=== PATIENT | female | born 1940 | race Caucasian/White ===

== ENCOUNTER 2020-01-11 09:47 | Outpatient (CLI) | payer MEDICARE, OTHER, SELFPAY ==
--- NOTE | ~2020-01-11 | XR_ITS ---
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 The procedure including the risks, benefits, and alternatives was discussed with the pat ient. Risks discussed included bleeding and infection. The patient understood the risks and agreed to proceed. The skin overlying the left hip joint was prepped and draped in usual sterile fashion. An esthetic was administered with 1% lidocaine subcutaneously. A 22 G needle was advanced under fluoros copic guidance into the joint. Injection of a small amount of gas confirmed intra-articular position of the needle. Subsequently, injectate consisting of 7 mL of a 5:2 mixture of 1% lidocaine:10 mg/mL Kenalog for a total dose of 20 mg Kenalog was instilled. The needle was removed and the entry site w as cleaned and dressed. There were no immediate complications. Fluoroscopy exposure time was 0.1 min utes. The total number of images was 2. FINDINGS: Real-time fluoroscopy demonstrates the needle in the left hip joint. Patient's pain prior t o procedure:05/01. Patient's pain following the procedure: 12/30. IMPRESSION: 1. Left hip injection of local anesthetic and steroid with decrease in the patient's presenting pain. Reviewed, dictated and finalized at location A. IMPRESSION: 1. Left hip injection of local anesthetic and steroid with decrease in the silvio ent's presenting pain.
== END 2020-01-11 09:48 | disposition home or self-care (01) ==
PROVIDERS: PCP Physician Assistant; Visit Provider Orthopaedic Surgery
DX: M16.12 Unilateral primary osteoarthritis, left hip (principal); M25.552 Pain in left hip
CPT/HCPCS: 20610; 77002; J3301

== ENCOUNTER 2020-02-04 11:14 | Emergency (ER) | payer MEDICARE, OTHER, SELFPAY ==
--- NOTE | ~2020-02-04 | XR_ITS ---
XR wrist RT min 3V DATE: 02/04/2020 11:48 INDICATION: Fall 2 weeks ago. Lateral wrist pain. TECHNIQUE: 4 views COMPARISON: None FINDINGS: Diffuse osteopenia. There is prominent narrowing at the radioscaphoid joint, as well as triscaphe joint. There is promine nt narrowing at the articulation of the lunate bone with the capitate and hamate bones. There is mild osteoarthritis at the first carpometacarpal joint. There is osteoarthritic change at the first metac arpophalangeal joint. No fracture or dislocation is evident. No periosteal reaction or bone destruction. IMPRESSION: Osteopenia Polyarticular osteoarthritis Reviewed, dictated and finalized at location A.
[2020-02-04 11:32] VITALS: BP 140/65; PULSE 81; RESP 16; TEMP 36.6; O2SAT 98
--- NOTE | 2020-02-04 11:48 | ED.UPPEXIN ---
HPI - Extremity Injury (Upper) General Chief Complaint: Extremity Injury, Upper Stated Complaint: Fall rt wrist pain Time Seen by Provider: 02/04/20 11:50 Source: patient Limitations: no limitations History of Present Illness HPI narrative: Maame Frias is a 79 yo female with a prior history of cerebral palsy and osteopenia, who comes to express care because of fall that happened 2 weeks ago and her right hand continues to be somewhat weak and painful with exertion. She has good range of motion of the hand but when she tries to put pressure on the wrist she has pain. Still drives her car is unable to start the car for instance. Related Data Home Medications Medication Instructions Recorded Confirmed acetaminophen [Tylenol] 325 mg PO ONCE PRN 10/20/19 02/04/20 cyanocobalamin (vitamin B-12) 1,000 mcg PO DAILY 10/20/19 02/04/20 [Vitamin B-12] hydrochlorothiazide 12.5 mg PO DAILY 10/20/19 02/04/20 naproxen sodium 220 mg tablet 220 mg PO BID PRN 11/30/19 02/04/20 phenytoin sodium extended 100 mg 100 mg PO TID 01/06/20 02/04/20 capsule Allergies Allergy/AdvReac Type Severity Reaction Status Date / Time No Known Allergies Allergy Verified 02/04/20 11:19 Review of Systems Review of Systems: Narrative: CONSTITUTIONAL: Denies fever, chills, sweats. EYES: Denies visual changes, redness, discharge. ENT: Denies rhinorrhea, congestion, sore throat, otalgia. CARDIOVASCULAR: Denies chest pain, palpitations, edema. RESPIRATORY: Denies dyspnea, wheezing, cough GASTROINTESTINAL: Denies abdominal pain, nausea, vomiting, diarrhea. GENITOURINARY: Denies dysuria, hematuria, abnormal discharge SKIN: Denies rash or itching. NEUROLOGIC: Denies numbness, or focal weakness. PSYCHIATRIC: Denies anxiety or depression. Extremities: Right wrist pain with exertion PMFSH Past Medical History Medical History Arthritis of both knees Osteoarthritis of left hip Seizure disorder Spasticity reports a injury but not sure exactly what it is Surgical History Surgical History History of appendectomy History of breast biopsy History of hysterectomy History of shoulder replacement History of tonsillectomy Family History Family History Father Malignant neoplasm of prostate Family history of cardiovascular disease Patient's father is , Onset Age: 80 Mother Heart disease Cancer Other Family history of genitourinary disease Social History Social History Smoking status: Never smoker Second hand tobacco smoke exposure: No Alcohol intake: never Substance use: never Gender identity (if verbalized by the patient): Female Spiritual care concerns: No Comments At time of signature, I agree with nursing past medical, surgical, social and family history. There is no relevant family history pertinent to the presenting complaint. Exam Narrative: Exam Narrative: GENERAL: This is a well-nourished, well-developed patient, in mild distress. HEAD: normocephalic, atraumatic. EYES: Sclera clear/white. Vision is grossly intact. EARS: External ears normal, Hearing grossly intact. NOSE: External nose normal without nasal discharge, nares without redness, no rhinorrhea. THROAT: Mucous membranes moist, NECK: Neck supple, CARDIOVASCULAR: Regular rate and rhythm without murmurs, gallops, or rubs. RESPIRATORY: Clear to auscultation. Breath sounds equal bilaterally. No wheezes, rales, or rhonchi. GASTROINTESTINAL: Abdomen soft, SKIN: warm, intact with no suspicious lesions or rash, good texture and turgor. NEURO: awake, alert, and oriented to person, place and time. There were no obvious focal neurologic abnormalities. Steady gait with use of walker EXTREMITIES: Normal range of motion. Right
== END 2020-02-04 12:20 | disposition home or self-care (01) ==
PROVIDERS: Emergency Provider Nurse Practitioner; PCP Physician Assistant
DX: S63.501A Unspecified sprain of right wrist, initial encounter (principal); W19.XXXA Unspecified fall, initial encounter; I10 Essential (primary) hypertension
CPT/HCPCS: 73110; 99213; G0463

== ENCOUNTER 2020-03-08 15:44 | Outpatient (CLI) | payer MEDICARE, OTHER, SELFPAY ==
--- NOTE | 2020-03-08 15:58 | ECG_ITS ---
Measurements Intervals [place] Rate: 67 P: 64 MA: 171 QRS: -5 QRSD: 80 T: 44 QT: 429 QTc: 453 Interpretive Statements SINUS RHYTHM SUPRAVENTRICULAR TRIGEMINY RSR' IN V1 OR V2, CONSIDER RIGHT VENTRICULAR HYPERTROPHY OR RIGHT VCD BORDERLINE ST ABNORMALITY- ANTEROLATERAL LEADS ABNORMAL ECG Electronically Signed On 03-08-2020 17:58:30 CDT by Levar Reece D.O.
== END 2020-03-08 15:45 | disposition home or self-care (01) ==
PROVIDERS: PCP Physician Assistant; Visit Provider Physician Assistant
DX: I49.9 Cardiac arrhythmia, unspecified (principal); R94.31 Abnormal electrocardiogram [ECG] [EKG]
CPT/HCPCS: 93005

== ENCOUNTER 2020-03-20 09:25 | Observation (INO) | payer MEDICARE, OTHER, SELFPAY ==
--- NOTE | ~2020-03-20 | XR_ITS ---
EXAMINATION: XR tibia fibula RT 2V EXAM DATE: 03/20/2020 10:33 INDICATION: No known recent injury provided at this time. Pain of the right tibia/fibula. TECHNIQUE: Right tibia/fibula frontal and lateral projections obtained and reviewed. There is no sari or study for comparison. FINDINGS: There is acute nondisplaced closed posttraumatic right fibular shaft fracture at its proxi mal aspect, identified only on the lateral projection. This finding has been indicated, marked on the examination for review, clinical correlation. There are no acute tibial fractures or dislocations identified. There is no subcutaneous gas. The soft tissue is unremarkable. There are no radiopaqu e foreign bodies. No knee joint effusion. IMPRESSION: Acute nondisplaced right fibular shaft fracture. Reviewed, dictated and finalized at location B.
--- NOTE | ~2020-03-20 | XR_ITS ---
EXAMINATION: XR hip RT 2V w AP pelvis EXAM DATE: 03/20/2020 10:33 INDICATION: Initial encounter following injury, with pain of the pelvis, right hip. TECHNIQUE: Right hip frontal, 'frog leg' projections for interpretation. Frontal projection pelvis. There is no prior study for comparison. FINDINGS: Smooth right hip femoral head contour, no radiographic evidence of avascular necrosis. Ther e is moderate left hip arthritis. Mild to moderate right hip arthritis. There are no acute fractures or dislocations identified. There is no subcutaneous gas. The soft tissue is unremarkable. There are no radiopaque foreign bodies. IMPRESSION: 1. Pelvis, right hip exam without acute osseous findings. 2. Arthritis. Reviewed, dictated and finalized at location B.
[2020-03-20 09:27] VITALS: BP 143/66; PULSE 80; RESP 18; TEMP 36.3; O2SAT 100
--- NOTE | 2020-03-20 10:03 | ED.FALL ---
HPI - Fall General Chief Complaint: Fall Stated Complaint: FALL Time Seen by Provider: 03/20/20 09:52 Source: patient Mode of arrival: ambulatory Limitations: no limitations History of Present Illness HPI Narrative: This patient is a 79 year old female with history of HTN, hypothyroid, cerebral palsy who presents for evaluatio of right lower leg pain s/p fall. She states this morning she slide off bed onto her right leg. She states she has been unable bear weight to right leg. She denies hitting her head and she denies neck pain or back pain. She denies taking anticoagulation as well. Patient lives in senior apartment by her self and she has history of falling. MD complaint: fall Related Data Home Medications Medication Instructions Recorded Confirmed cyanocobalamin (vitamin B-12) 1,000 mcg PO DAILY 10/20/19 03/20/20 [Vitamin B-12] aspirin [Adult Low Dose Aspirin] 81 mg PO DAILY 03/20/20 03/20/20 cholecalciferol (vitamin D3) 2,000 units PO DAILY 03/20/20 03/20/20 mcxylvts-gun-atoj-FA-lutein 1 tablet PO DAILY 03/20/20 03/20/20 [Centrum Silver Women] primidone 50 mg PO .QHS 03/20/20 03/20/20 Allergies Allergy/AdvReac Type Severity Reaction Status Date / Time No Known Allergies Allergy Verified 03/20/20 09:32 Review of Systems Review of Systems: All systems reviewed & are unremarkable except as noted in HPI and below PMFSH Past Medical History Medical History Arthritis of both knees Osteoarthritis of left hip Seizure disorder Spasticity reports a injury but not sure exactly what it is Family History Family History (Updated 03/20/20 @ 18:52 by Brunilda Mojica RN) Father Family history of cardiovascular disease Malignant neoplasm of prostate Patient's father is , Onset Age: 80 Mother Heart disease Cancer Patient's mother is Other Family history of genitourinary disease Social History Social History Smoking status: Never smoker Second hand tobacco smoke exposure: No Alcohol intake: never Substance use: never Gender identity (if verbalized by the patient): Female Spiritual care concerns: No Exam Const: General: no acute distress and alert Orientation/consciousness: patient oriented x3 HENMT: Head: normocephalic and atraumatic Ears: external ears normal Face and sinus: face symmetric Mouth: Yes Normal oral and palatal mucosa present and Yes oropharynx normal Throat: posterior oropharynx normal and uvula midline Eyes: Pupils: Equal, round and reactive pupils present EOM: EOMs intact bilaterally Neck: Neck: normal visual inspection Resp: Effort & Inspection: normal respiratory effort and no retractions Auscultation: clear to auscultation bilaterally Cardio: Rate: regular rate Rhythm: regular rhythm Skin: General skin exam: normal color Rashes: no rashes Neuro: General: patient oriented x3 Extrem: Other: TTP right lateral leg at side of indent in muscle, no swelling, Psych: Mental Status: mental status grossly normal Affect: normal affect Course Reevaluation(s) Reevaluation #1: PAtient states she is unable to ambulate with her walker so she is agreeable for observation for placement in rehab Date: 03/20/20 Time: 16:37 Consultations Consultation #1: Dr Huddleston agrees to consult and patient sees him as outpatient. Date: 03/20/20 Time: 16:37 Consultation #2: Pearl Bergman with hospitalist accepts patien to service Date: 03/20/20 Time: 16:37 Vital Signs Vital signs: Vital Signs Temperature 97.3 F L 03/20/20 09:27 Pulse Rate 80 03/20/20 09:27 Respiratory Rate 18 03/20/20 09:27 Blood Pressure 143/66 H 03/20/20 09:27 Pulse Oximetry 100 03/20/20 09:27 Temperature 97.9 F 03/20/20 19:02 Pulse Rate 85 03/20/20 19:02 Respiratory Rate 18 03/20/20 19:02 Blood Pres
[2020-03-20] MEDS: ACETAMINOPHEN 500 MG TABLET 1000 MG PO (10:33)
[2020-03-20 11:07] VITALS: BP 123/65; PULSE 69; RESP 18; O2SAT 99
[2020-03-20 16:27] VITALS: BP 122/68; PULSE 78; RESP 20; O2SAT 99
--- NOTE | 2020-03-20 16:44 | PCCCNOTE ---
Spoke with pt regarding rehab. Pt would like [facility]. notified of need for COVID testing and PT/OT eval for placement
[2020-03-20 17:03] LABS: Alanine Aminotransferase 17 U/L (4-35); Albumin Level 4.7 g/dL (3.5-5.1); Alkaline Phosphatase 85 U/L (38-126); Aspartate Amino Transferase 29 U/L (14-36); Bilirubin,Total 0.2 mg/dL (0.2-1.3); Blood Urea Nitrogen 24 mg/dL (7-17); Carbon Dioxide 35 mmol/L (22-30); Chloride 102 mmol/L (98-107); Estimated CRCL calculation 47 ml/min; Estimated Glomerular Filt Rate 60; Glucose 128 mg/dL (65-105); Potassium 4.3 mmol/L (3.4-5.0); Sodium 141 mmol/L (137-145)
[2020-03-20 17:10] LABS: Basophils Absolute Auto 0.1 K/mm3 (0.0-0.1); Basophils Percent Auto 0.9 % (0.2-1.2); Eosinophils Absolute Auto 0.2 K/mm3 (0-0.3); Eosinophils Percent Auto 3.9 % (0-4.4); Hematocrit 38.3 % (37.0-47.0); Hemoglobin 12.9 g/dL (12.0-15.0); Immature Granulocyte Absolute 0.01 K/mm3 (0.00-0.031); Immature Granulocyte Percent A 0.2 % (0-0.5); Lymphocytes Absolute Auto 1.17 K/mm3 (0.9-3.2); Mean Corpuscular HGB Conc 33.7 g/dl (32-36); Mean Corpuscular Hemoglobin 32.1 pg (26-34); Mean Corpuscular Volume 95.3 fl (80-100); Mean Platelet Volume 9.3 fl (7.4-10.4); Monocytes Absolute Auto 0.6 K/mm3 (0.1-0.6); Monocytes Percent Auto 10.9 % (2.6-8.5); Neutrophils Absolute Auto 3.5 K/mm3 (1.3-6.7); Neutrophils Percent Auto 63.1 % (45.5-73.1); Platelet Count Result 257 k/mm3 (150-375); Red Blood Count 4.02 M/mm3 (4.2-5.4); Red Cell Distribution Width 13.3 % (11.5-14.5); White Blood Count 5.6 K/mm3 (4.5-10.0)
[2020-03-20 17:16] LABS: Phenytoin Dilantin 17 ug/mL (10-20)
[2020-03-20 17:52] VITALS: BP 130/60; PULSE 80; RESP 18
--- NOTE | 2020-03-20 18:34 | ADMGEN ---
This patient, Maame Frias, was admitted to 3 Med Surg Room 303-01 @ 1832. Patient/family oriented to hospital policies and general routines including ID bracelet, bed and alarms, visiting hours, pain management, procedures, bathroom and other care routines, personal items, smoking policy, room service/diet, and visiting hours. Valuables list has been completed. Information on how to activate the Rapid Response Team has been discussed. Patient/Family are encouraged to report perceived risks to care and to ask questions if they do not understand what they are told or what they should do.
[2020-03-20 18:47] VITALS: BMI 23.8
[2020-03-20 19:02] VITALS: BP 133/58; PULSE 85; RESP 18; TEMP 36.6; O2SAT 100
[2020-03-20 20:42] LABS: Add Urine Microscopic? YES; Appearance Urine Cloudy (Clear); Bacteria Urine 1+ /hpf; Bilirubin Urine Negative (Negative); Blood Urine 1+ (Negative); Color Urine Yellow (Yellow); Glucose Urine UA Negative (Negative); Ketones Urine Negative (Negative); Leukocyte Esterase Ur 3+ LEU/UL (Negative); Mucus Urine Rare /lpf; Nitrate Urine Positive (Negative); Protein Urine Negative (Negative); Specific Grav Ur 1.018 (1.001-1.035); Squamous Epithelial Cell Urine Many /hpf (Few); Urobilinogen Urine Negative mg/dL (<2.0); WBC Urine 31-50 /hpf
--- NOTE | 2020-03-20 20:53 | PHAR ---
HOME MED VERIFIED = [facility] RX [id number] DILANTIN 100 MG CAPS. 1 CAP TID
[2020-03-20 22:00] VITALS: BP 124/53; PULSE 81; RESP 16; TEMP 36.9; O2SAT 100
[2020-03-20] MEDS: PHENYTOIN SODIUM 100 MG CAP PO (22:19)
--- NOTE | 2020-03-20 23:00 | PM.IMHP ---
H&P: HPI History of Present Illness Chief complaint: Fall. Narrative: Maame Frias is a 79-year-old female with cerebral palsy, seizure disorder, hypertension, and hypothyroidism who presented to the emergency department earlier this morning for evaluation after a fall., she was sitting on the side of her bed and reached over to turn on the light. Unfortunately, she accidentally slid off the bed and landed on her right leg and side. She was unable to get herself up or bear weight on the right leg due to severe pain and was found to have a fibular shaft fracture. She denies head trauma and loss of consciousness in the fall, and states it was simply a mechanical fall. With further questioning however she does mention that she has a history of falls and she believes that is due to weakness and some spasticity of the right side from her cerebral palsy. She has absolutely no pain in her leg if she is not moving, but rates her pain 9/10 with any movement of the right leg. No paresthesias, skin color, or temperature changes distal to the fracture. Review of Systems Review of Systems: Narrative: Twelve systems were reviewed with pertinent positives and negatives as per HPI. No fever, chills, or sweats. No recent cold or flu symptoms. She denies recent travel, sick contacts, shortness of breath. She has had a slight dry cough due to postnasal drip. Currently has an event monitor and place for palpitations, per Dr. Marin. She also mentions that she had some nurys ankle edema swelling but that has since resolved. Appetite has been good and she denies nausea and vomiting. She has not had her seizure for a long time. Except as documented, all other systems were reviewed and are negative. [facility] Past Medical History Medical History (Updated 03/21/20 @ 00:31 by Pearl Bergman PA-C) Arthritis of both knees Cerebral palsy With right-sided weakness and spasticity. Hypertension Hypothyroidism Osteoarthritis of left hip Seizure disorder Vitamin D deficiency Surgical History Surgical History (Updated 03/21/20 @ 00:25 by Pearl Bergman PA-C) History of appendectomy History of breast biopsy Bilateral, with benign pathology. History of hysterectomy History of reverse total replacement of right shoulder joint History of tonsillectomy Family History Family History Father Family history of cardiovascular disease Malignant neoplasm of prostate Patient's father is , Onset Age: 80 Mother Heart disease Cancer Patient's mother is Other Family history of genitourinary disease Social History Social History (Updated 03/21/20 @ 00:26 by Pearl Bergman PA-C) Social History: The patient is . She lives in a senior apartment in [place], [place]. She has no biological children. She is a lifelong nonsmoker and denies alcohol and drug use. She designates her stepdaughter, Nighat Francis and her friend Karyna Domínguez as her surrogate decision makers and she wishes to be a full code. Smoking status: Never smoker Second hand tobacco smoke exposure: No Alcohol intake: never Substance use: never Gender identity (if verbalized by the patient): Female Spiritual care concerns: No Meds Home Medications and Allergies Home Medications Medication Instructions Recorded Confirmed Type calcium carbonate 500 mg calcium 500 mg PO BID #60 cap 09/29/19 03/20/20 Rx (1,250 mg) capsule cyanocobalamin (vitamin B-12) 1,000 mcg PO DAILY 10/20/19 03/20/20 History [Vitamin B-12] phenobarbital 30 mg tablet 30 mg PO TID #90 tablet 10/25/19 03/20/20 Rx levothyroxine 88 mcg tablet 88 mcg PO DAILY #90 tablet 12/09/19 03/20/20 Rx hydrochlorothiazide 25 mg tablet 25 mg PO DAILY #90 tablet 02/23/20 03/20/20 Rx losartan 25 mg tablet 50 mg PO DAILY #180 tablet 03/03/20 03/20/20 Rx Dilantin Extended 100 mg capsule 100 mg PO TID #90 cap NS
[2020-03-21] MEDS: PRIMIDONE 50 MG TABLET PO ×2 (01:07→20:48)
[2020-03-21] MEDS: PHENOBARBITAL 30 MG TABLET PO ×4 (01:10→18:34)
[2020-03-21] MEDS: LEVOTHYROXINE SODIUM 88 MCG TABLET PO (05:58)
[2020-03-21 06:00] VITALS: BP 110/60; PULSE 79; RESP 16; TEMP 37; O2SAT 97
[2020-03-21 06:25] LABS: Blood Urea Nitrogen 21 mg/dL (7-17); Calcium 8.7 mg/dL (8.4-10.2); Carbon Dioxide 30 mmol/L (22-30); Chloride 104 mmol/L (98-107); Estimated CRCL calculation 48 ml/min; Estimated Glomerular Filt Rate > 60; Glucose 109 mg/dL (65-105); Phenytoin Dilantin 14 ug/mL (10-20); Potassium 3.8 mmol/L (3.4-5.0); Sodium 138 mmol/L (137-145)
[2020-03-21 09:25] VITALS: BP 116/55; PULSE 89; RESP 18; TEMP 36.6; O2SAT 97
[2020-03-21] MEDS: ASPIRIN 81 MG ENTERIC TABLET PO (09:38)
[2020-03-21] MEDS: THERAPEUTIC MULTIVITAMINS/MINERALS TAB (*BKC) 1 TABLET PO (09:38)
[2020-03-21] MEDS: CYANOCOBALAMIN 1,000 MCG TABLET 1000 MCG PO (09:38)
[2020-03-21] MEDS: LOSARTAN POTASSIUM 50 MG TABLET PO (09:39)
[2020-03-21] MEDS: PHENYTOIN SODIUM 100 MG CAP PO ×3 (09:40→20:48)
--- NOTE | 2020-03-21 10:36 | PCPTNOTE ---
Attempted PT evaluation. Will see patient once weight bearing orders submitted.
[2020-03-21] MEDS: CALCIUM CARBONATE (OSCAL) 500 MG TABLET PO ×2 (11:20→18:34)
[2020-03-21] MEDS: CHOLECALCIFEROL 1,000 UNIT TABLET 2000 UNITS PO (11:20)
--- NOTE | 2020-03-21 11:21 | PM.CNOR ---
Assessment and Plan Assessment and plan (1) Nondisplaced fracture of shaft of right fibula: Qualifiers: Encounter type: initial encounter Fracture morphology: transverse Fracture type: closed Qualified Code(s): S82.424A - Nondisplaced transverse fracture of shaft of right fibula, initial encounter for closed fracture Code(s): S82.401A - Unspecified fracture of shaft of right fibula, initial encounter for closed fracture Status: Acute Assessment and Plan: 79-year-old female with an acute nondisplaced right fibular shaft fracture. This is going to be treated nonsurgically. She can be weight-bearing as tolerated using her walker. Recommend using just Tylenol for pain. I will see her in one month for x-ray follow up. Thank for consultation. History of Present Illness HPI Consult date: 03/21/20 Consult reason: fracture (Right fibular shaft) Chief complaint: Fall. Narrative: 79-year-old female who fell at home yesterday suffering a right fibular fracture. She is quite unsteady and fell unable to go home. She was admitted for initiating physical therapy and also for placement. She has a history of cerebral palsy. Review of Systems Constitutional: Constitutional: Reports no additional constitutional complaints, Denies excessive sweating and Denies fatigue Eyes: Eyes: Reports no additional eye complaints ENT: Reports system reviewed and no additional complaints, except as documented Cardiovascular: Cardiovascular: Denies chest pain at rest and Denies dyspnea Respiratory: Respiratory: Reports no additional respiratory complaints and Denies dyspnea Gastrointestinal: Gastrointestinal: Reports no additional gastrointestinal complaints Musculoskeletal: Musculoskeletal: Reports as per HPI Integumentary/Breasts: Skin/Breast: Reports system reviewed and no additional complaints, except as docu Neurologic: Reports as per HPI Endocrine: Endocrine: Denies excessive sweating and Denies fatigue Hematologic/Lymphatic: Hematologic/Lymphatic: Denies easy bleeding and Denies easy bruising PMFSH Past Medical History Medical History Arthritis of both knees Cerebral palsy With right-sided weakness and spasticity. Hypertension Hypothyroidism Osteoarthritis of left hip Seizure disorder Vitamin D deficiency Surgical History Surgical History History of appendectomy History of breast biopsy Bilateral, with benign pathology. History of hysterectomy History of reverse total replacement of right shoulder joint History of tonsillectomy Family History Family History Father Family history of cardiovascular disease Malignant neoplasm of prostate Patient's father is , Onset Age: 80 Mother Heart disease Cancer Patient's mother is Other Family history of genitourinary disease Social History Social History Social History: The patient is . She lives in a senior apartment in [place], [place]. She has no biological children. She is a lifelong nonsmoker and denies alcohol and drug use. She designates her stepdaughter, Nighat Francis and her friend Karyna Domínguez as her surrogate decision makers and she wishes to be a full code. Smoking status: Never smoker Second hand tobacco smoke exposure: No Alcohol intake: never Substance use: never Gender identity (if verbalized by the patient): Female Spiritual care concerns: No Meds Home Medications and Allergies Home Medications Medication Instructions Recorded Confirmed Type calcium carbonate 500 mg calcium 500 mg PO BID #60 cap 09/29/19 03/20/20 Rx (1,250 mg) capsule cyanocobalamin (vitamin B-12) 1,000 mcg PO DAILY 10/20/19 03/20/20 History [Vitamin B-12] phenobarbital 30 mg tab
[2020-03-21 14:00] VITALS: BP 133/63; PULSE 87; RESP 18; TEMP 36.5; O2SAT 98
--- NOTE | 2020-03-21 17:53 | PM.IMPN ---
Progress Note: A&P Assessment and Plan (1) Nondisplaced fracture of shaft of right fibula: Qualifiers: Encounter type: initial encounter Fracture morphology: transverse Fracture type: closed Qualified Code(s): S82.424A - Nondisplaced transverse fracture of shaft of right fibula, initial encounter for closed fracture Code(s): S82.401A - Unspecified fracture of shaft of right fibula, initial encounter for closed fracture Status: Acute Assessment and Plan: Nonsurgical fracture non displaced fibular fracture, await surgery rec Dr. Huddleston been consulted and his input is appreciated. PT/OT consulted; she will need rehab placement. (2) Hypertension: Code(s): I10 - Essential (primary) hypertension Status: Acute Assessment and Plan: Blood pressures are well controlled and will be monitored daily. Continue antihypertensives but I am going to hold hydrochlorothiazide (3) Hypothyroidism: Code(s): E03.9 - Hypothyroidism, unspecified Status: Acute Assessment and Plan: Continue levothyroxine and check TSH. (4) Seizure disorder: Code(s): G40.909 - Epilepsy, unspecified, not intractable, without status epilepticus Status: Acute Assessment and Plan: Phenytoin level 14 and phenobarbital level pending Subjective Date/time seen: 03/21/20 17:53 Interval history: Date of visit 03/21. 79-year-old hypertensive white female neuro Cl P seizures will order fell out of bed fracturing her right fibula still has some pain but the overall doing well and no she will have have some placement for rehab. Exam Narrative: Exam Narrative: Blood pressure 132/62 pulse 86 temp 36.5? afebrile General: Well-developed elderly female supine in bed in no distress. HEENT: Pupils reactive. Neck: Supple. Respiratory: Lungs are clear to auscultation bilaterally. Cardiovascular: Regular rate and rhythm with S1-S2. Event monitor on the anterior chest. Gastrointestinal: Abdomen is soft, nontender, and nondistended with positive bowel sounds. Skin: Warm and dry. No rash or lesions on limited exam. Extremities: No cyanosis, clubbing, or edema. Radial and pedal pulses intact. Musculoskeletal: Right leg is in a brace. She is neurovascular intact distal to the fracture site. She has some tremors of the upper extremities which he states is chronic, and slight spasticity of the right upper extremity. Neurological: Alert. Cranial nerves 2-12 are grossly intact. No gross focal deficits to casual conversation. Psychiatric: Pleasant and cooperative with normal mood and affect. Objective Data Vital Signs Vital Signs: Vital Signs - 24 hr 03/20/20 19:02 03/20/20 22:00 03/21/20 06:00 Temperature 36.6 C 36.9 C 37.0 C Pulse Rate 85 81 79 Respiratory Rate 18 16 16 Blood Pressure 133/58 L 124/53 L 110/60 Pulse Oximetry 100 100 97 03/21/20 09:25 03/21/20 14:00 Temperature 36.6 C 36.5 C Pulse Rate 89 87 Respiratory Rate 18 18 Blood Pressure 116/55 L 133/63 Pulse Oximetry 97 98 Intake/Output Intake/Output: Intake & Output 03/18/20 03/19/20 03/20/20 03/21/20 23:59 23:59 23:59 23:59 Intake Total 1280 Output Total 1000 Balance 280 Meds/Results Medications: Active Medications Generic Name Dose Route Start Last Admin Trade Name Freq PRN Reason Stop Dose Admin Aspirin 81 mg 03/21/20 09:00 03/21/20 09:38 Aspirin Ec PO 81 mg DAILY MANN Administration Calcium Carbonate 500 mg 03/21/20 09:00 03/21/20 11:20 Oscal 500 Mg PO 500 mg BID MANN Administration Cyanocobalamin 1,000 mcg 03/21/20 09:00 03/21/20 09:38 Vitamin B-12 Tab PO 1,000 mcg DAILY MANN Administration Levothyroxine Sodium 88 mcg 03/21/20 06:30 06
[2020-03-21 19:45] LABS: SARS-CoV-2 RNA PCR Negative
[2020-03-21 20:00] VITALS: BP 133/58; PULSE 88; RESP 20; TEMP 37; O2SAT 94
[2020-03-22] MEDS: LEVOTHYROXINE SODIUM 88 MCG TABLET PO (05:32)
[2020-03-22 06:00] VITALS: BP 111/56; PULSE 78; RESP 16; TEMP 36.8; O2SAT 97
[2020-03-22] MEDS: ASPIRIN 81 MG ENTERIC TABLET PO (09:23)
[2020-03-22] MEDS: CALCIUM CARBONATE (OSCAL) 500 MG TABLET PO (09:24)
[2020-03-22] MEDS: LOSARTAN POTASSIUM 50 MG TABLET PO (09:24)
[2020-03-22] MEDS: CHOLECALCIFEROL 1,000 UNIT TABLET 2000 UNITS PO (09:24)
[2020-03-22] MEDS: CYANOCOBALAMIN 1,000 MCG TABLET 1000 MCG PO (09:24)
[2020-03-22] MEDS: THERAPEUTIC MULTIVITAMINS/MINERALS TAB (*BKC) 1 TABLET PO (09:25)
[2020-03-22] MEDS: PHENYTOIN SODIUM 100 MG CAP PO (09:26)
--- NOTE | 2020-03-24 18:33 | PM.DS ---
DS: Admitting Diagnosis Admitting Diagnosis Admitting Diagnosis: Nondisplaced transverse fracture of shaft of right fibula, initial encounter for closed fracture DS: Discharge Diagnosis Discharge Diagnosis (1) Nondisplaced fracture of shaft of right fibula: Qualifiers: Encounter type: initial encounter Fracture morphology: transverse Fracture type: closed Qualified Code(s): S82.424A - Nondisplaced transverse fracture of shaft of right fibula, initial encounter for closed fracture Code(s): S82.401A - Unspecified fracture of shaft of right fibula, initial encounter for closed fracture Status: Acute Assessment and Plan: Nonsurgical fracture non displaced fibular fracture, surgery rec PT rehab with full weight-bearing and follow-up within 4 weeks for repeat x-ray. PT/OT sawl while here; and discharged to rehab at [facility]. (2) Hypertension: Code(s): I10 - Essential (primary) hypertension Status: Acute Assessment and Plan: Blood pressures are well controlled . Continue antihypertensives (3) Hypothyroidism: Code(s): E03.9 - Hypothyroidism, unspecified Status: Acute Assessment and Plan: Continue levothyroxine and TSH normal 2.0 (4) Seizure disorder: Code(s): G40.909 - Epilepsy, unspecified, not intractable, without status epilepticus Status: Acute Assessment and Plan: Phenytoin level 14 continue antiseizure medicine DS: Summary Hospital Course Hospital Course: 79-year-old hypertensive white female with cerebral palsy and seizure disorder had fell out of bed and fractured her fibula. Seen by Ortho and no surgical intervention. Full weight-bearing suggested and was sent to rehab for further recovery until able to return to assisted living No change in her usual medication Time Spent with Patient Time attestation: Total time spent providing and/or coordinating discharge services: 35 minutes Exam Narrative: Exam Narrative: Condition on discharge Blood pressure 110/56 pulse 78 respirations 16 per minute afebrile Lungs clear CV regular rate rhythm Extremities without edema distal pulses 2+ Was ambulating with walker and assistance of PT at the time of discharge Discharge Plan Discharge Attending physician on discharge: Pradeep Ruiz Consulting providers: Mitchell Huddleston ; Jesse Denny ; Pearl Bergman Discharging Clinician: Pradeep Ruiz Patient Disposition: SNF Activity: as tolerated Diet: regular Discharge Instructions: For Dr. Huddleston: Follow up with Dr Huddleston on 04-18-2020. Please call [facility] at as soon as possible to verify follow-up appointment to be seen in 4 weeks. Also, call the office with any orthopedic/surgical related questions prior to follow-up. Weight bearing as tolerated right leg using walker box car loader. NO CANE Patient Instructions: Leg Fracture (DC), Pain Management in Older Adults (DC), Fall Prevention for Older Adults (DC) Stand Alone Forms: General Discharge Information Follow-up/Referrals: Justino Hart DO [Primary Care Provider] - Keep Reg. Scheduled Appt. Mitchell Huddleston MD [Physician] - 4 Weeks Discharge Medications: Continued cyanocobalamin (vitamin B-12) [Vitamin B-12] 1,000 mcg Tablet 1,000 mcg PO DAILY RF: 0 aspirin [Adult Low Dose Aspirin] 81 mg Tablet,Delayed Release (Dr/Ec) 81 mg PO DAILY RF: 0 Centrum Silver Women 8 mg iron-400 mcg-300 mcg Tablet 1 tablet PO DAILY RF: 0 cholecalciferol (vitamin D3) 2,000 units tablet 2,000 units PO DAILY RF: 0 primidone 50 mg tablet 50 mg PO .QHS RF: 0 calcium carbonate 500 mg calcium (1,250 mg) capsule 500 mg PO BID Qty: 60 RF: 2
== END 2020-03-22 13:15 ==
LOC: ANHED 16:33 → ANH3MEDSUR 19:11
PROVIDERS: Physician Assistant; Admitting Provider Hospitalist; Emergency Provider General Practice; PCP Internal Medicine; Visit Provider Internal Medicine
DX: S82.424A Nondisplaced transverse fracture of shaft of right fibula, initial encounter for closed fracture (principal); W06.XXXA Fall from bed, initial encounter; I10 Essential (primary) hypertension; E03.9 Hypothyroidism, unspecified; G40.909 Epilepsy, unspecified, not intractable, without status epilepticus; G80.9 Cerebral palsy, unspecified; E55.9 Vitamin D deficiency, unspecified; M16.12 Unilateral primary osteoarthritis, left hip; Z79.82 Long term (current) use of aspirin; Z79.899 Other long term (current) drug therapy; Z20.828 Contact with and (suspected) exposure to other viral communicable diseases
CPT/HCPCS: 36415; 73502; 73590; 80048; 80053; 80184; 80185; 81001; 84443; 85025; 87077; 87086; 87088; 87186; 87635; 97110; 97116; 97161; 97165; 97530; 97535; 99285; A9270; C9803; G0378; U0003

== ENCOUNTER 2021-01-08 13:18 | Outpatient (CLI) | payer MEDICARE, OTHER, MEDICAID, SELFPAY ==
--- NOTE | ~2021-01-08 | DEXA_ITS ---
Bone Density Report Name: Maame Frias Age: 80 Sex: Female Ethnicity: White Date of : 1940 Indication: postmenopausal; height loss; prior fracture; seizure disorder; hysterectomy; Referring Provider: Ruby Castellanos Study: Bone densitometry was performed. Exam Date: January 08, 2021 Accession number: [id number] Bone Density: Region BMD T-score Z-score Classification Femoral Neck (Left) 0.537 -2.8 -0.5 Osteoporosis Total Hip (Left) 0.602 -2.8 -0.7 Osteoporosis Total Hip Bilateral Avg 0.598 -2.9 -0.8 Osteoporosis Femoral Neck (Right) 0.527 -2.9 -0.6 Osteoporosis Total Hip (Right) 0.594 -2.9 -0.8 Osteoporosis World Health Organization criteria for BMD impression classify patients as: Normal (T-score at or above -1.0), Osteopenia (T-score between -1.0 and -2.5), or Osteoporosis (T-score at or below -2.5). 10-year Fracture Risk: FRAX not reported because: Some T-score for Spine Total or Hip Total or Femoral Neck at or below -2.5 Clinical Information Provided by Patient: Has had a low trauma fracture Has used the following medications: HRT (i.e. estrogen/hormone therapy), Vitamin D, Calcium Has the following medical conditions: Any Seizure Disorders, Hysterectomy Patient maximum height was 68 Menopause Age: 48 No regular weight bearing exercise Does not regularly consume dairy products Drinks caffeinated beverages Onset of menses at age 13 Number of children 0 Impression: The patient has established osteoporosis, based on the Right Total Hip T-score and the existence of a prior fracture. The patient has risk factors, including: previous fracture. Discussion: HIGH RISK OF FRACTURE. BONE DENSITY IS UNDESIRABLY LOW AT ONE OR MORE SKELETAL SITES, CONSISTENT WITH POSTMENOPAUSAL OSTEOPOROSIS. This patient's lowest T-score, in a patient who has previously fractured, meets the World Health Organization's (WHO) criteria for severe osteoporosis. In untreated patients, the risk of osteoporotic fracture increases approximately two-fold for each 1.0 SD decrease in T-score. Low bone density is not the only risk factor for fracture; also consider factors such as patient's age, frailty or poor health, risk of falling, risk of injury, previous osteoporotic fracture, family history of osteoporosis, cigarette smoking, low body weight, etc. Not everyone with low bone mineral density has osteoporosis; osteomalacia and other metabolic bone disorders should also be considered. Patients who have osteoporosis should be evaluated for specific diseases and conditions (secondary causes) that may cause or contribute to bone loss. The [place] [employer]ocrinologists (AACE) and National Osteoporosis Foundation (NOF) recommend pharmacologic intervention for all postmenopausal women whose T-score is in this range. The patient should follow a health
== END 2021-01-08 13:19 | disposition home or self-care (01) ==
LOC: ANHIMG 13:19
PROVIDERS: PCP Physician Assistant; Visit Provider Internal Medicine Endocrinology, Diabetes & Metabolism
DX: M81.0 Age-related osteoporosis without current pathological fracture (principal)
CPT/HCPCS: 77080

== ENCOUNTER 2021-08-05 13:42 | Emergency (ER) | payer MEDICARE, OTHER, MEDICAID, SELFPAY ==
[2021-08-05 14:03] VITALS: BP 134/57; PULSE 74; RESP 18; TEMP 36.4; O2SAT 97
--- NOTE | 2021-08-05 14:22 | ED.SKABFB ---
HPI - Skin/Abscess/Foreign Bdy General Chief complaint: Wound/Laceration Stated complaint: Open sore between toes Time Seen by Provider: 08/05/21 14:23 Source: patient, family, RN notes reviewed and old records reviewed History of Present Illness HPI narrative: 80-year-old female presents to the [facility] with concerns over toe infection. 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 Patient and daughter state that they just keeps shaving it. Patient reports they are uncomfortable to wear with shoes. There is no additional swelling, redness. There is no drainage noted. They are tender to touch. Raised firm areas on toes 1 and 2. Patient with a history of Parkinson's, seizures, right-sided weakness Related Data Home Medications Medication Instructions Recorded Confirmed cyanocobalamin (vitamin B-12) 1,000 mcg PO DAILY 10/20/19 08/05/21 [Vitamin B-12] Centrum Silver Women 1 tablet PO DAILY 03/20/20 08/05/21 aspirin 325 mg tablet 325 mg PO DAILY 04/10/20 08/05/21 carbidopa 25 mg-levodopa 100 mg 1 tablet PO QID tablet 09/26/20 08/05/21 tablet Allergies Allergy/AdvReac Type Severity Reaction Status Date / Time No Known Allergies Allergy Verified 08/05/21 14:09 Review of Systems Review of Systems: All systems reviewed & are unremarkable except as noted in HPI and below Constitutional: Constitutional: Reports no additional constitutional complaints Eyes: Eyes: Reports no additional eye complaints ENT: Reports system reviewed and no additional complaints, except as documented Cardiovascular: Cardiovascular: Reports no additional cardiovascular complaints Respiratory: Respiratory: Reports no additional respiratory complaints Gastrointestinal: Gastrointestinal: Reports no additional gastrointestinal complaints Musculoskeletal: Musculoskeletal: Reports no additional musculoskeletal complaints Integumentary/Breasts: Skin/Breast: Reports as per HPI Comments: 2 calluses Neurologic: Reports as per HPI Comments: Chronic right-sided weakness, since Psychiatric: Psychiatric: Reports no additional psychiatric complaints Allergic/Immunologic: Allergic/Immunologic: Reports no additional allergic/immunologic complaints [facility] Past Medical History Medical History Arthritis of both knees BMI 23.0-23.9, adult Cerebral palsy With right-sided weakness and spasticity. Hypertension Hypothyroidism Osteoarthritis of left hip Seizure disorder Vitamin D deficiency Surgical History Surgical History History of appendectomy History of breast biopsy Bilateral, with benign pathology. History of hysterectomy History of reverse total replacement of right shoulder joint History of tonsillectomy Family History Family History Father Family history of cardiovascular disease Malignant neoplasm of prostate Patient's father is , Onset Age: 80 Mother Heart disease Cancer Patient's mother is Other Family history of genitourinary disease Social History Social History Social History: The patient is . She lives in a senior apartment in [place], [place]. She has no biological children. She is a lifelong nonsmoker and denies alcohol and drug use. She designates her stepdaughter, Nighat Francis and her friend Karyna Domínguez as her surrogate decision makers and she wishes to be a full code. Smoking status: Never smoker Second hand tobacco smoke exposure: No Alcohol intake: never Substance use: never Gender identity (if verbalized by the patient): Female Spiritual care concerns: No Comments At the time of my signature, I reviewed and agree with the nursing past medical, surgical, social, and family history. There is no relevant family history pertinent
== END 2021-08-05 14:40 | disposition home or self-care (01) ==
PROVIDERS: Emergency Provider Nurse Practitioner; PCP Physician Assistant
DX: L84 Corns and callosities (principal); M17.0 Bilateral primary osteoarthritis of knee; G80.9 Cerebral palsy, unspecified; I10 Essential (primary) hypertension; E03.9 Hypothyroidism, unspecified; M16.12 Unilateral primary osteoarthritis, left hip; G40.909 Epilepsy, unspecified, not intractable, without status epilepticus; E55.9 Vitamin D deficiency, unspecified; Z79.82 Long term (current) use of aspirin
CPT/HCPCS: 99212; G0463

== ENCOUNTER 2021-10-30 10:34 | Outpatient (CLI) | payer MEDICARE, OTHER, MEDICAID, SELFPAY ==
--- NOTE | ~2021-10-30 | XR_ITS ---
EXAMINATION: XR lg joint inject/asp w image DATE: 10/30/2021 11:55 INDICATION: Left hip pain TECHNIQUE: A time-out was performed to verify the patient's name, date of , and procedure to b e performed. The procedure including the risks, benefits, and alternatives was discussed with the pat ient. Risks discussed included bleeding and infection. The patient understood the risks and agreed to proceed. The skin overlying the left hip joint was prepped and draped in usual sterile fashion. An esthetic was administered with 1% lidocaine subcutaneously. A 22 G needle was advanced under fluoros copic guidance into the joint. Spontaneous efflux of clear light straw-colored joint fluid confirming intra-articular position of the needle. Subsequently, injectate consisting of 7 mL of a 5:2 mixture of 1% lidocaine:10 mg/mL Kenalog for a total dosage of 20 mg Kenalog was instilled. The needle was r emoved and the entry site was cleaned and dressed. There were no immediate complications. Fluoroscop y exposure time was 0.1 minutes. The total number of images was 2. FINDINGS: Real-time fluoroscopy demonstrates the needle in the left hip joint. Patient's pain prior t o procedure:2/10. Patient's pain following the procedure: 0/10. IMPRESSION: 1. Successful left hip joint injection of local anesthetic and steroid with decrease in the patient's presenting pain. Reviewed, dictated and finalized at location A. SUPERVISOR IMPRESSION: 1. Successful left hip joint injection of local anesthetic and steroid with dec rease in the patient's presenting pain.
== END 2021-10-30 10:35 | disposition home or self-care (01) ==
PROVIDERS: PCP Physician Assistant; Visit Provider Orthopaedic Surgery
DX: M16.12 Unilateral primary osteoarthritis, left hip (principal)
CPT/HCPCS: 20610; 77002; J3301

== ENCOUNTER 2022-01-09 12:28 | Outpatient (CLI) | payer MEDICARE, OTHER, MEDICAID, SELFPAY ==
--- NOTE | ~2022-01-09 | DEXA_ITS ---
Bone Density Report Name: PRSELEY BRISCOE Age: 81 Sex: Female Ethnicity: White Date of : 1940 Indication: postmenopausal osteoporosis; monitoring treatment; height loss; prior fracture; seizure disorder; hysterectomy; Referring Provider: ISAMAR CRUZ Study: Bone densitometry was performed. Exam Date: January 09, 2022 Accession number: [id number] Bone Density: Region BMD T-score Z-score Classification Femoral Neck (Left) 0.621 -2.1 0.3 Osteopenia Total Hip (Left) 0.631 -2.5 -0.4 Osteoporosis Femoral Neck (Right) 0.586 -2.4 0.0 Osteopenia Total Hip (Right) 0.654 -2.4 -0.2 Osteopenia Total Hip Mean 0.643 -2.5 -0.3 Osteopenia World Health Organization criteria for BMD impression classify patients as: Normal (T-score at or above -1.0), Osteopenia (T-score between -1.0 and -2.5), or Osteoporosis (T-score at or below -2.5). 10-year Fracture Risk: FRAX not reported because: Some T-score for Spine Total or Hip Total or Femoral Neck at or below -2.5 Treated for osteoporosis Previous Exams: Region Exam Age BMD T-score BMD Change BMD Change Date g/cm2 vs Baseline vs Previous Total Hip(Left) 01/09/2022 81 0.631 -2.5 0.029 (4.9%)# 0.029 (4.9%)# 01/08/2021 80 0.602 -2.8 Total Hip(Right) 01/09/2022 81 0.654 -2.4 0.061 (10.2%)# 0.061 (10.2%)# 01/08/2021 80 0.594 -2.9 *Denotes significance at 95% confidence level, LSC for Total Hip = 0.027 g/cm2 # Denotes dissimilar scan types or analysis methods Clinical Information Provided by Patient: Has had a low trauma fracture Is being treated for osteoporosis Has used the following medications: Reclast (i.e. zoledronate), Vitamin D, Calcium Has the following medical conditions: Any Seizure Disorders, Hysterectomy Patient maximum height was 68 Menopause Age: 48 Does not regularly consume dairy products Onset of menses at age 14 Number of children 0 Impression: The patient has established osteoporosis, based on the Left Total Hip T-score and the existence of a prior fracture. The patient has risk factors, including: previous fracture. No significant bone loss was observed. Discussion: PATIENT UNDER TREATMENT WITH NO SIGNIFICANT BMD LOSS SINCE LAST EXAM. In an untreated patient, BMD typically declines with age. A lack of decline or gain is usually a sign that treatment is efficacious and fracture risk is reduced. It is important to ask patients whether they are taking their medications and to encourage continued and appropriate compliance with the
== END 2022-01-09 12:29 | disposition home or self-care (01) ==
LOC: ANHIMG 12:29
PROVIDERS: PCP Physician Assistant; Visit Provider Internal Medicine Endocrinology, Diabetes & Metabolism
DX: M81.0 Age-related osteoporosis without current pathological fracture (principal); M85.88 Other specified disorders of bone density and structure, other site; M85.851 Other specified disorders of bone density and structure, right thigh
CPT/HCPCS: 77080

== ENCOUNTER 2022-02-07 12:28 | Outpatient (CLI) | payer MEDICARE, OTHER, SELFPAY ==
--- NOTE | ~2022-02-07 | MR_ITS ---
EXAMINATION: MR brain IAC wo con DATE: 02/07/2022 13:29 INDICATION: Parkinson's disease. Seizures. TECHNIQUE: Magnetic resonance imaging (MRI) of the brain, brainstem, and internal auditory canals was performed without intravenous contrast. COMPARISON: None. 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 There i s an old infarct in posterior left frontal lobe. There are scattered areas of nonspecific increased T 2-weighted signal intensity in the cerebral white matter and bilateral basal ganglia. There is no int racranial hemorrhage, acute infarction, or abnormal intracranial mass lesion. There is ex vacuo dilat ation of left lateral ventricle. There is mucosal thickening in the paranasal sinuses. The mastoid ai r cells are normal. IMPRESSION: 1. 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 2. Moderate nonspecific cerebral white matter disease and disease of the bilateral basal ganglia, whi ch likely represents chronic small vessel ischemic disease. Reviewed, dictated and finalized at location A. IMPRESSION: 1. 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 2. Moderate nonspecific cerebral white matter disease and disease of the bilate ral basal ganglia, which likely represents chronic small vessel ischemic diseas e.
== END 2022-02-07 12:29 | disposition home or self-care (01) ==
LOC: ANHIMG 12:29
PROVIDERS: PCP Physician Assistant; Visit Provider Physician Assistant
DX: G20 Parkinson's disease (principal); Z86.73 Personal history of transient ischemic attack (TIA), and cerebral infarction without residual deficits; R90.82 White matter disease, unspecified
CPT/HCPCS: 70551

== ENCOUNTER 2022-05-08 10:32 | Outpatient (CLI) | payer MEDICARE, OTHER, MEDICAID, SELFPAY ==
--- NOTE | ~2022-05-08 | XR_ITS ---
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 The procedure including the risks, benefits, and alternatives was discussed with the pat ient. Risks discussed included bleeding and infection. The patient understood the risks and agreed to proceed. The skin overlying the left hip joint was prepped and draped in usual sterile fashion. An esthetic was administered with 1% lidocaine subcutaneously. A 22 G needle was advanced under fluoros copic guidance into the joint. There is spontaneous reflux of clear straw-colored joint fluid confirm ing intra-articular positioning. Subsequently, injectate consisting of 3 mL of a 2:1 mixture of 1% l idocaine:10 mg/mL Kenalog for a total dosage of 20 mg Kenalog was instilled. Washout of contrast was seen confirming intra-articular administration. The needle was removed and the entry site was cleaned and dressed. There were no immediate complications. Fluoroscopy exposure time was 0.1 minutes. The total number of images was 2. FINDINGS: Real-time fluoroscopy demonstrates the needle in the left hip joint. Patient's pain prior t o procedure:8/10. Patient's pain following the procedure: 0/10. Left hip osteoarthritis with moderat e to severe axial predominant nonuniform joint space narrowing and moderate-sized marginal osteophyte s about the left acetabulum. IMPRESSION: 1. Successful left hip joint injection of local anesthetic and steroid with decrease in the patient's presenting pain. Reviewed, dictated and finalized at location A. IMPRESSION: 1. Successful left hip joint injection of local anesthetic and steroid with dec rease in the patient's presenting pain.
== END 2022-05-08 10:33 | disposition home or self-care (01) ==
PROVIDERS: PCP Physician Assistant; Visit Provider Orthopaedic Surgery
DX: M25.552 Pain in left hip (principal)
CPT/HCPCS: 20610; 77002; J3301

== ENCOUNTER 2022-11-07 10:43 | Emergency (ER) | payer MEDICARE, OTHER, SELFPAY ==
--- NOTE | ~2022-11-07 | XR_ITS ---
EXAMINATION: XR knee LT 3V DATE: 11/07/2022 14:22 INDICATION: Left knee pain and swelling TECHNIQUE: Three views of the left knee were obtained. COMPARISON: 10/17/2021 FINDINGS: Alignment is normal. No fracture or osteochondral lesion. There is mild tricompartmental os teoarthritis characterized by tiny marginal osteophytes. No joint effusion/synovitis. Calcified athe rosclerosis is noted. IMPRESSION: 1. Mild osteoarthritis. Reviewed, dictated and finalized at location A. ARY TEACHER IMPRESSION: 1. Mild osteoarthritis.
--- NOTE | ~2022-11-07 | XR_ITS ---
EXAMINATION: XR pelvis 1-2V DATE: 11/07/2022 13:02 INDICATION: Left lower limb pain post fall and approximately 1 1/2 weeks prior. TECHNIQUE: 1. An anteroposterior view of the pelvis was obtained. 2. Anteroposterior, angled anteroposterior and lateral views of the sacrum and coccyx were obtained. COMPARISON: 10/17/2021 and 03/20/2020 FINDINGS: Partially visualized levocurvature with severe spondylosis at the visualized lower lumbar spine. Alig nment is otherwise normal. No fracture or suspected osteonecrosis. Sacral arches are intact. Moderate to severe osteoarthritis at the left hip. Mild to moderate osteoarthritis at the right hip and bilat eral sacroiliac joints. IMPRESSION: 1. No acute osseous abnormality. 2. Degenerative skeletal changes including severe lower lumbar spondylosis and polyarticular osteoart hritis moderate to severe at the left hip and mild to moderate at the right hip and bilateral sacrali zed joints. Reviewed, dictated and finalized at location A. TECHNOLOGIST IMPRESSION: 1. No acute osseous abnormality. 2. Degenerative skeletal changes including severe lower lumbar spondylosis and polyarticular osteoarthritis moderate to severe at the left hip and mild to mod erate at the right hip and bilateral sacralized joints.
--- NOTE | ~2022-11-07 | XR_ITS ---
EXAMINATION: XR sacrum coccyx min 2V DATE: 11/07/2022 13:02 INDICATION: Sacrococcygeal injury. TECHNIQUE: 3 views of the sacrum and coccyx on 4 radiographs were obtained. COMPARISON: None. FINDINGS: There is lumbar levoscoliosis and severe spondylosis. No fracture. There is moderate right hip osteoarthritis and severe left hip osteoarthritis. There is mild osteoarthritis of the sacroiliac joints. IMPRESSION: 1. No fracture. Reviewed, dictated and finalized at location A. EMS PROGRAMMER ANALYST IMPRESSION: 1. No fracture.
[2022-11-07 11:37] VITALS: BP 130/44; PULSE 63; RESP 14; TEMP 36.5; O2SAT 100
[2022-11-07 13:39] VITALS: BP 145/65; PULSE 63; RESP 18; O2SAT 100
--- NOTE | 2022-11-07 14:08 | ED.FALL ---
HPI - Fall General Chief Complaint: Fall Stated Complaint: fall with pain to buttocks - left knee pain Time Seen by Provider: 11/07/22 13:45 History of Present Illness HPI Narrative: Patient is 81-year-old female here for evaluation of left knee weakness over the past week. Patient states that she has had numerous episodes where she is felt her knee give out on her, causing her to fall. Most recent fall was a week ago where she landed on her coccyx. Patient has been able to walk since then but just feels unsteady. She lives at [facility] on the independent living side. Presents today due to fears about showering and is afraid she will fall, states its been 2 days since she showered. No head injury or loss of consciousness. Related Data Allergies Allergy/AdvReac Type Severity Reaction Status Date / Time No Known Allergies Allergy Verified 11/07/22 10:44 Review of Systems Review of Systems: Gen.: Denies fevers or chills Eyes: Denies eye pain or visual change ENT: Denies congestion Respiratory: Denies shortness of breath or cough CV: Denies chest pain or palpitations GI: Denies abdominal pain nausea, emesis or diarrhea denies burning, urgency, frequency or hematuria Musculoskeletal: Reports left knee pain Neuro: Denies numbness, tingling, weakness or focal weakness Skin: Denies rash Except as documented, all other systems reviewed and negative [facility] Past Medical History Medical History Arthritis of both knees Arthritis of left hip BMI 23.0-23.9, adult Cerebral palsy With right-sided weakness and spasticity. Hypertension Hypothyroidism Osteoarthritis of left hip Seizure disorder Vitamin D deficiency Surgical History Surgical History History of appendectomy History of breast biopsy Bilateral, with benign pathology. History of hysterectomy History of reverse total replacement of right shoulder joint History of tonsillectomy Family History Family History Father Family history of cardiovascular disease Malignant neoplasm of prostate Patient's father is , Onset Age: 80 Mother Heart disease Cancer Patient's mother is Other Family history of genitourinary disease Social History Social History Social History: The patient is . She lives in a senior apartment in [place], [place]. She has no biological children. She is a lifelong nonsmoker and denies alcohol and drug use. She designates her stepdaughter, Nighat Francis and her friend Karnya Domínguez as her surrogate decision makers and she wishes to be a full code. Smoking status: Never smoker Second hand tobacco smoke exposure: No Alcohol intake: never Substance use: never Lack of Transportation: No Lack of Food: Never True Current Housing: I Have Housing Concerned About Future Housing: No Difficulty Paying Gas/Electric Bills: No Difficulty Paying for Meds: No Currently Unemployed: No Education: High School Diploma/GED Difficulty w/ Childcare or Family Care: No Living arrangements: alone Occupation/Education: retired Gender identity (if verbalized by the patient): Female Spiritual care concerns: No Exam Narrative: APPEARANCE: Well appearing, no pain in distress, well-nourished. Head: Normocephalic and atraumatic. EYES: PERRLA/EOMI, conjunctivae clear NOSE: No nasal drainage EARS: External ear normal in appearance THROAT: Oropharynx is clear. Mucous membranes are moist. NECK: Supple. No adenopathy, no masses. RESPIRATORY: Airway patent, respirations nonlabored. Clear to auscultation bilaterally, no rales, rhonchi, wheezing. CARDIOVASCULAR: Regular rate and rhythm without murmurs, rubs, or gallops. ABDOMINAL: Normoactive bowel sounds. Soft, nontend
[2022-11-07 15:32] VITALS: BP 137/68; PULSE 76; RESP 18; O2SAT 96
--- NOTE | 2022-11-07 16:21 | PCCCNOTE ---
PT/OT gina reviewed shows home health therapy. Met with Michel in ER, patient is already discharged back to [facility]. Called to [facility] spoke with char filter operatorRAISSA and floor RN had left for the day. She states that that do have therapy through [facility] that come in to work with patients. Transferred to [facility] , left that patient discharged from ER with recommendation for home health therapy. If it needs set up separate from the [facility] then to call back ER certified social workers in health care and will assist with getting it set up.
== END 2022-11-07 15:56 ==
PROVIDERS: Emergency Provider Physician Assistant; PCP Physician Assistant
DX: M17.0 Bilateral primary osteoarthritis of knee (principal); M16.0 Bilateral primary osteoarthritis of hip; G80.9 Cerebral palsy, unspecified; I10 Essential (primary) hypertension; G40.909 Epilepsy, unspecified, not intractable, without status epilepticus; E03.9 Hypothyroidism, unspecified; E55.9 Vitamin D deficiency, unspecified; M47.816 Spondylosis without myelopathy or radiculopathy, lumbar region; Z90.710 Acquired absence of both cervix and uterus; Z96.611 Presence of right artificial shoulder joint; Z79.82 Long term (current) use of aspirin
CPT/HCPCS: 72170; 72220; 73562; 97161; 97165; 99284

== ENCOUNTER 2023-01-13 09:29 | Outpatient (CLI) | payer MEDICARE, OTHER, SELFPAY ==
--- NOTE | ~2023-01-13 | DEXA_ITS ---
Bone Density Report Name: PRESLEY BRISCOE Age: 82 Sex: Female Ethnicity: White Date of : 1940 Indication: postmenopausal osteoporosis; height loss; seizure disorder; hysterectomy; Referring Provider: ISAMAR CRUZ Study: Bone densitometry was performed. Exam Date: January 13, 2023 Accession number: [id number] Bone Density: Region BMD T-score Z-score Classification Femoral Neck (Left) 0.645 -1.8 0.6 Osteopenia Total Hip (Left) 0.661 -2.3 -0.1 Osteopenia Femoral Neck (Right) 0.589 -2.3 0.0 Osteopenia Total Hip (Right) 0.633 -2.5 -0.4 Osteoporosis Total Hip Mean 0.647 -2.4 -0.3 Osteopenia World Health Organization criteria for BMD impression classify patients as: Normal (T-score at or above -1.0), Osteopenia (T-score between -1.0 and -2.5), or Osteoporosis (T-score at or below -2.5). 10-year Fracture Risk: FRAX not reported because: Some T-score for Spine Total or Hip Total or Femoral Neck at or below -2.5 Previous Exams: Region Exam Age BMD T-score BMD Change BMD Change Date g/cm2 vs Baseline vs Previous Total Hip(Left) 01/13/2023 82 0.661 -2.3 0.059 (9.8%)# 0.030 (4.7%)* 01/09/2022 81 0.631 -2.5 0.029 (4.9%)# 0.029 (4.9%)# 01/08/2021 80 0.602 -2.8 Total Hip(Right) 01/13/2023 82 0.633 -2.5 0.039 (6.6%)# -0.021 (-3.3%) 01/09/2022 81 0.654 -2.4 0.061 (10.2%)# 0.061 (10.2%)# 01/08/2021 80 0.594 -2.9 *Denotes significance at 95% confidence level, LSC for Total Hip = 0.027 g/cm2 # Denotes dissimilar scan types or analysis methods Clinical Information Provided by Patient: Has used the following medications: Vitamin D, Calcium Has the following medical conditions: Any Seizure Disorders, Hysterectomy Patient maximum height was 68 Menopause Age: 48 Does not regularly consume dairy products Onset of menses at age 12 Number of children 0 Impression: The patient has osteoporosis, based on the Right Total Hip T-score. No significant bone loss was observed. Discussion: INCREASED RISK OF FRACTURE. BONE DENSITY IS UNDESIRABLY LOW AT ONE OR MORE SKELETAL SITES, CONSISTENT WITH POSTMENOPAUSAL OSTEOPOROSIS. This patient's lowest T-score meets the World Health Organization's (WHO) criteria for osteoporosis at one or more sites (T-score -2.5 or below). In untreated patients, the risk of osteoporotic fracture increases approximately two-fold for each 1.0 SD decrease in T-score. Low bone density is not the only risk factor for fracture; also consider factors such as patien
== END 2023-01-13 09:30 | disposition home or self-care (01) ==
LOC: ANHIMG 09:30
PROVIDERS: PCP Physician Assistant; Visit Provider Internal Medicine Endocrinology, Diabetes & Metabolism
DX: M81.0 Age-related osteoporosis without current pathological fracture (principal)
CPT/HCPCS: 77080

== ENCOUNTER 2023-04-11 12:18 | Outpatient (CLI) | payer MEDICARE, OTHER, SELFPAY ==
--- NOTE | ~2023-04-11 | MR_ITS ---
EXAMINATION: MR hip LT wo con DATE: 04/11/2023 13:47 INDICATION: Left hip pain TECHNIQUE: Magnetic resonance imaging (MRI) of the left hip was performed without intravenous contras t. Sequences included coronal T1 FSE, T2 FSE, and PD FS; axial T1 FSE and PD FS. The following sequen nico were obtained with a small [id number] of the left hip: Coronal T2 FSE and PD FS FSE; axial PD FS FSE; sagittal PD FS FSE; radial T 1 fast GRE. COMPARISON: X-ray pelvis 09/06/2023 FINDINGS: Bones/cartilage: Severe bilateral superior hip joint space narrowing and cartilage thinning. There are bilateral hip o steophytosis. There is focal marrow edema in the left anterior and posterior acetabular stark and in the femoral head and neck. Lumbar scoliosis and degenerative change. Mild degenerative change in the bilateral SI joints Labrum: Significant labral volume loss, degenerative signal change, and multifocal degenerative tears. Fluid: Small volume right hip joint fluid. Moderate volume left hip joint fluid. Soft tissues: No lymphadenopathy. Scattered diverticuli without evidence of diverticulosis. Normal urinary bladder. The uterus appears to be surgically absent. IMPRESSION: Severe right hip osteoarthritis with extensive degenerative change/tearing of the labrum. Moderate le ft hip joint effusion. Focal left acetabular and left femoral head/neck marrow edema may be reactive to the degenerative maksim nges or related to bone contusion. Mild right hip osteoarthritis. Reviewed, dictated and finalized at location K. IMPRESSION: Severe right hip osteoarthritis with extensive degenerative change/tearing of t he labrum. Moderate left hip joint effusion. Focal left acetabular and left femoral head/neck marrow edema may be reactive t o the degenerative changes or related to bone contusion. Mild right hip osteoarthritis.
--- NOTE | ~2023-04-11 | MR_ITS ---
MRI of the lumbar spine Clinical History: Back pain Technique: Axial T2-weighted images, and sagittal T1-weighted, T2-weighted, and and T2 fat-sat images were acquired. Findings: There is levoscoliosis of the lumbar spine, approximately 40 degrees in severity. No acute fracture seen. No anterior or posterior subluxation evident. No suspicious bone marrow signal abnorma lity seen. At L1-L2, there is minimal disc bulge and mild facet arthropathy. No central canal stenosis or defini te neural foraminal narrowing. At L2-L3, there is mild disc bulge and moderate to advanced facet arthropathy. No central canal steno sis. There is severe right neural foraminal narrowing. Left neural foramen preserved. At L3-L4, there is mild disc bulge and severe facet arthropathy. There is moderate to advanced left n eural foraminal narrowing, and moderate right neural foraminal narrowing. At L4-L5, there is minimal disc bulge and moderate to advanced facet arthropathy, left worse than rig ht. There is mild left neural foraminal narrowing. Right neural foramen preserved. At L5-S1, there is minimal disc bulge. There is advanced facet arthropathy. No central canal stenosis . There is moderate left neural foraminal narrowing. Right neural foramen preserved. Paravertebral soft tissues are unremarkable. Impression: Levoscoliosis, as detailed above. Moderate degenerative spondylosis, as detailed above. Reviewed, dictated and finalized at [facility]. Impression: Levoscoliosis, as detailed above. Moderate degenerative spondylosis, as detailed above.
== END 2023-04-11 12:19 | disposition home or self-care (01) ==
PROVIDERS: PCP Physician Assistant; Visit Provider Physician Assistant
DX: M54.50 Low back pain, unspecified (principal); M25.452 Effusion, left hip; M16.11 Unilateral primary osteoarthritis, right hip; M47.896 Other spondylosis, lumbar region
CPT/HCPCS: 72148; 73721

== ENCOUNTER 2023-10-08 10:35 | Outpatient (CLI) | payer MEDICARE, OTHER, SELFPAY ==
--- NOTE | ~2023-10-08 | XR_ITS ---
Clinical Indication: Preoperative clearance PA and lateral views of the chest: Comparison: 06/11/2019 Findings: Stable calcified right midlung granuloma. The lungs are otherwise clear, without evidence o f focal consolidation or pleural effusion. Cardiomediastinal silhouette is within normal limits. Bon es and soft tissues are unremarkable, aside from right shoulder arthroplasty. Impression: No significant abnormality. Reviewed, dictated and finalized at location . ICAL CARE UNIT MANAGER Impression: No significant abnormality.
== END 2023-10-08 10:36 | disposition home or self-care (01) ==
PROVIDERS: PCP Physician Assistant
DX: Z01.818 Encounter for other preprocedural examination (principal)
CPT/HCPCS: 71046

== ENCOUNTER 2023-11-29 07:03 | Inpatient (IN) | payer MEDICARE, OTHER, MEDICAID, SELFPAY ==
[2023-11-29] VITALS (25 sets, daily range): BP systolic 104–139; BP diastolic 45–86; PULSE 84–143; RESP 13–22; TEMP 36.3–36.9; O2SAT 95–100; BMI 22.8
--- NOTE | 2023-11-29 | ECHO_ITS ---
Patient Info Name: Maame Frias Age: 82 years : 1940 Gender: Female Ht: 64 in Wt: 132 lbs BSA: 1.65 m2 HR: 117 bpm BP: 120 / 86 mmHg Heart Rhythm: Tachycardia, Atrial Fibrillation Technical Quality: Fair Exam Date: 11/29/2023 1:13 PM Exam Location: Echo Lab Exam Room: 200 Patient Status: Outpatient Admit Date: 11/29/2023 Staff Ordering Physician: Marylu Bower APRN Carbon Printer: Karen Chairez RDCS Attending Provider: Randy Dennison MD Referring Physician: Cheli AGUIAR; Exam Type: CA echo doppler color flow Study Info Indications - AFIB/FLUTTER Complete two-dimensional, color flow and Doppler transthoracic echocardiogram is performed. Summary 1. Complete two-dimensional, color flow and Doppler transthoracic echocardiogram is performed. 2. Left ventricular chamber dimension is normal. 3. Left ventricular systolic function is normal, estimated at >70%. 4. There is moderately increased left ventricular wall thickness. 5. Right ventricular systolic function is normal. 6. Left atrial chamber dimension is severely enlarged. 7. There is mild to moderate mitral valve regurgitation. 8. There is mild tricuspid valve regurgitation. 9. There is trivial pericardial effusion. Left Ventricle Left ventricular chamber dimension is normal. Left ventricular systolic function is normal, estimated at >70%. There is moderately increased left ventricular wall thickness. Right Ventricle Right ventricular chamber dimension is normal. Right ventricular systolic function is normal. Left Atria Left atrial chamber dimension is severely enlarged. Right Atria Right atrial chamber dimension is normal. Atrial Septum Intact interatrial septum visualized by color flow imaging. Aortic Valve The aortic valve is trileaflet. There is no aortic valve stenosis. There is no aortic valve regurgitation. There is mild aortic valve calcification. Pulmonic Valve The pulmonic valve is not well visualized. There is trace pulmonic regurgitation. Mitral Valve There is mild to moderate mitral valve regurgitation. The mitral valve annulus is moderately calcified. Tricuspid Valve There is mild tricuspid valve regurgitation. Pericardium/Pleural There is trivial pericardial effusion. Inferior Vena Cava Normal inferior vena cava with >50% collapse upon inspiration consistent with normal right atrial pressure, 3 mmHg. Aorta The aortic root size at the sinus of Valsalva is normal. Left Ventricular Outflow Tract Name Value Normal LVOT 2D LVOT Diameter 2.0 cm LVOT Doppler LVOT Peak Gradient 5 mmHg LVOT Mean Gradient 3 mmHg LVOT VTI 20 cm LVOT VTI/AV VTI Ratio 0.8 LVOT Stroke Volume 60 ml LVOT CO 14.7 l/min LVOT CI 8.9 l/min/m2 Pulmonic Valve Name Value Normal PV Doppler
--- NOTE | ~2023-11-29 | US_ITS ---
US venous doppler [facility] DATE: 11/30/2023 11:02 INDICATION: Deep venous thrombosis TECHNIQUE: Real-time and color flow imaging and Doppler analysis of the veins of both lower extremiti es COMPARISON: None FINDINGS: The greater saphenous veins are patent. There is spontaneous and phasic flow and normal aug mentation and color flow signal and normal compression of the deep veins of both lower extremities. IMPRESSION: No evidence of deep venous thrombosis of the lower extremities Reviewed, dictated and finalized at Location [facility]. Reviewed, dictated and finalized at location A.
--- NOTE | ~2023-11-29 | XR_ITS ---
XR chest 1V portable DATE: 11/29/2023 07:46 INDICATION: Arrhythmia TECHNIQUE: Portable AP chest on 11/29/2023 at 0743 hours COMPARISON: 10/08/2023 2 view chest FINDINGS: Normal heart size. No hilar or mediastinal enlargement. No pulmonary infiltrate or consolidation, pleural effusion or pulmonary vascular congestion or pneumo thorax. Right reverse glenohumeral joint replacement. Osteopenia. Osteoarthritic change at the left glenohume ral joint. Scoliosis and degenerative change of thoracic and lumbar spine. IMPRESSION: No active cardiopulmonary disease Reviewed, dictated and finalized at location A. ETTE
--- NOTE | ~2023-11-29 | CT_ITS ---
EXAMINATION: CTA chest PE protocol DATE: 11/29/2023 14:19 INDICATION: Atrial flutter with rapid ventricular rate. TECHNIQUE: Computed tomography angiography (CTA) of the chest was performed with 100 mL Omnipaque-350 intravenous contrast timed to evaluate the pulmonary arteries. Coronal maximum intensity projection 3D-reconstructions were created by the technologist. Automated exposure control and iterative reconst ruction technique were employed. The dose-length product was 225.45 mGy-cm. COMPARISON: None. FINDINGS: There is mild scarring at the lung apices. A calcified right lung nodule is consistent with old granulomatous disease. There is mild atelectasis bilaterally. The heart size is normal. There ar e coronary artery calcifications. No pericardial effusion. There is a small pulmonary embolus in left upper lobe. There is mild elevation of right hemidiaphragm. There is a total right shoulder arthropl asty. There is thoracic kyphosis. There is dextroscoliosis of upper thoracic spine and levoscoliosis of lower thoracic spine. There is moderate thoracic spondylosis. IMPRESSION: 1. Pulmonary embolus in left upper lobe. Reviewed, dictated and finalized at location E. ENT FITTER
--- NOTE | 2023-11-29 07:06 | ECG_ITS ---
Measurements Intervals [place] Rate: 125 P: [place]: 0 QRS: -8 QRSD: 81 T: 27 QT: 313 QTc: 452 Interpretive Statements ATRIAL FLUTTER/TACHYCARDIA WITH RAPID VENTRICULAR RESPONSE BASELINE ARTIFACT- I, II, AVR ABNORMAL ECG COMPARED TO ECG 03/08/2020 16:05:52 ATRIAL FLUTTER/TACHYCARDIA NOW PRESENT ST (T WAVE) DEVIATION NOW PRESENT Electronically Signed On 11-29-2023 7:38:28 CT TECH by Levar Reece D.O.
--- NOTE | 2023-11-29 07:16 | ED.ARRPALP ---
HPI - Arrhythmia/Palpitations General Chief Complaint: Arrhythmia/Palpitations Stated Complaint: tachycardic Time Seen by Provider: 11/29/23 07:12 Source: patient and EMS Mode of arrival: EMS Limitations: no limitations History of Present Illness HPI narrative: 82 years old white female came from assisting living by ambulance because of fast heartbeat worker up at 4:00 a.m. today. She denies any chest pain, lightheadedness, headache, shortness of breath. History of AFib on beta-noé, does not take anti-platelet medication or anticoagulant medication. Related Data Home Medications Medication Instructions Recorded Confirmed cholecalciferol (vitamin D3) 25 25 mcg PO DAILY 01/24/23 11/29/23 mcg (1,000 unit) capsule calcium carbonate 600 mg-vitamin 1 cap PO BID 11/29/23 11/29/23 D3 12.5 mcg (500 unit) capsule (Calcium 600 with Vitamin D3) Allergies Allergy/AdvReac Type Severity Reaction Status Date / Time No Known Allergies Allergy Verified 11/29/23 07:13 Review of Systems Review of Systems: All systems reviewed & are unremarkable except as noted in HPI and below PMFSH Past Medical History Medical History Afib Arthritis of both knees Arthritis of left hip BMI 23.0-23.9, adult Cerebral palsy With right-sided weakness and spasticity. Constipation Hypertension Hypothyroidism Left knee DJD Left leg pain Low vitamin D level Lumbar radiculopathy Osteoarthritis of left hip Pulmonary embolism Diagnosed 11/29/23 Seizure disorder Trochanteric bursitis, left hip Unstable gait Vitamin D deficiency Vitamin D deficiency Wears glasses Surgical History Surgical History History of appendectomy History of breast biopsy Bilateral, with benign pathology. 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 She lives in a senior apartment in [place], [place]. She has no biological children. She is a lifelong nonsmoker and denies alcohol and drug use. She designates her stepdaughter, Nighat Francis and her friend Karyna Domínguez as her surrogate decision makers and she wishes to be a full code. Smoking status: Never smoker Second hand tobacco smoke exposure: No Alcohol intake: never Substance use: never Lack of Transportation: No Lack of Food: Never True Current Housing: I Have Housing Concerned About Future Housing: No Difficulty Paying Gas/Electric Bills: No Difficulty Paying for Meds: No Currently Unemployed: No Education: High School Diploma/GED Difficulty w/ Childcare or Family Care: No Living arrangements: alone Occupation/Education: retired Gender identity (if verbalized by the patient): Female Spiritual care concerns: No Exam Narrative: General appearance: Well-developed, well-nourished Skin: Normal color Head: Normocephalic, nontraumatic Eyes: Clear conjunctiva ENT: Oropharynx normal, ears normal, nose normal Neck: Supple, nontender Chest and respiratory: Airway patent, no respiratory distress, no accessory muscle use Heart: Tachycardia, irregular irregularity Abdomen: Soft, nontender, no organomegaly, quiet bowel sounds Vascular: Normal peripheral pulses, normal capillary refill. Musculoskeletal: Normal range of motion, nontender back Neurologic: Alert and oriented ?3, C
[2023-11-29] MEDS: dilTIAZem HCl INJ 25 MG/5 ML VIAL 10 MG IV PUSH (08:18)
[2023-11-29] MEDS: dilTIAZem 100 MG/100 ML 100 MG/100 ML BAG IV CONT ×2 (08:47→18:12)
[2023-11-29 09:02] LABS: Basophils Absolute Auto 0.1 K/mm3 (0.0-0.1); Eosinophils Absolute Auto 0.2 K/mm3 (0-0.3); Eosinophils Percent Auto 2.6 % (0-4.4); Hematocrit 34.8 % (37.0-47.0); Hemoglobin 11.1 g/dL (12.0-15.0); Immature Granulocyte Absolute 0.02 K/mm3 (0.00-0.031); Immature Granulocyte Percent A 0.3 % (0-0.5); Lymphocytes Absolute Auto 0.86 K/mm3 (0.9-3.2); Lymphocytes Percent Auto 13.8 % (18.3-44.2); Mean Corpuscular HGB Conc 31.9 g/dl (32-36); Mean Corpuscular Hemoglobin 33.2 pg (26-34); Mean Corpuscular Volume 104.2 fl (80-100); Mean Platelet Volume 9.8 fl (7.4-10.4); Monocytes Absolute Auto 0.5 K/mm3 (0.1-0.6); Monocytes Percent Auto 7.2 % (2.6-8.5); Neutrophils Absolute Auto 4.7 K/mm3 (1.3-6.7); Neutrophils Percent Auto 75.1 % (45.5-73.1); Platelet Count Result 310 k/mm3 (150-375); Red Blood Count 3.34 M/mm3 (4.2-5.4); Red Cell Distribution Width 14.5 % (11.5-14.5); White Blood Count 6.2 K/mm3 (4.5-10.0)
[2023-11-29 09:08] LABS: Appearance Urine Clear (Clear); Bacteria Urine 4+ /hpf; Bilirubin Urine Negative (Negative); Blood Urine Negative (Negative); Color Urine Yellow (Yellow); Glucose Urine UA Negative (Negative); Ketones Urine Negative (Negative); Leukocyte Esterase Ur Trace LEU/UL (Negative); Nitrate Urine Positive (Negative); Non Pathogenic Casts 0-2; Protein Urine Negative (Negative); RBC Urine 0-2 /hpf (0-2); Specific Grav Ur 1.007 (1.001-1.035); Squamous Epithelial Cell Urine None seen /hpf (Few); Urobilinogen Urine 0.2 mg/dL (<2.0); WBC Urine 0-5 /hpf
[2023-11-29 09:13] LABS: Alanine Aminotransferase 12 U/L (6-35); Alkaline Phosphatase 137 U/L (38-126); Anion Gap 4 mmol/L (8-16); Aspartate Amino Transferase 23 U/L (14-36); Bilirubin,Total 0.3 mg/dL (0.2-1.3); Blood Urea Nitrogen 20 mg/dL (7-17); Calcium 9.1 mg/dL (8.4-10.2); Carbon Dioxide 28 mmol/L (22-30); Chloride 107 mmol/L (98-107); Estimated CRCL calculation 53 ml/min; Estimated Glomerular Filt Rate > 60; Glucose 115 mg/dL (65-110); Partial Thromboplastin Time 23.1 SECONDS (22.3-36.8); Potassium 3.5 mmol/L (3.4-5.0); Prothrombin Time 13.5 Seconds (11.1-14.7); Sodium 139 mmol/L (137-145)
[2023-11-29 09:23] LABS: NT Pro B Type Natriuretic Pept 898 pg/mL (19.9-100); Troponin I < 0.012 ng/mL (0.000-0.034)
[2023-11-29 10:10] LABS: Add Urine Microscopic? YES
--- NOTE | 2023-11-29 10:57 | PM.IMHP ---
H&P: HPI History of Present Illness Date/Time: 11/29/23 10:57 Chief Complaint: Arrhythmia/palpitations Narrative: This is an 82 year old female with a significant past medical history of A-fib (not on anticoagulation), cerebral palsy, hypertension, hypothyroidism, seizure disorder, osteoarthritis who presents to the ER with chief complaint of palpitations/arrhythmia. Patient states that she woke up about 4 a.m. this morning with palpitations. She states the palpitations woke her up and it felt like her heart was racing. She states that she does have a history of A fib and is sensitive to the onset. She called for her tech at the [facility] who noted upon assessment that her heart rate was 140. She was sent by EMS to the ER for further work up. She denied any fever, chills, shortness of breath, chest pain, nausea, vomiting, diarrhea, abdominal pain or headache. She does report that she had a total hip replacement done at [facility] about 1 month ago and just finished her rehab for that and was now home. Work up in the hospital included a chest x-ray that was negative. EKG showing Atrial flutter with RVR with a rate of 125. Initial labs shown Hgb 11.1, BG-98-115, Alk phos 137, proBNP 898, TSH 0.390. UA showing positive nitrates, trace leukocytes, 4+ bacteria. Urine culture ordered. Patient received 10 mg Diltiazem, started on diltiazem infusion, and given a dose of Tylenol while in the ER. On examination today patient is alert and oriented x4, lying in the bed. Her heart rate is now controlled on Cardizem infusion. She is ranging 80-90's on the monitor. Cardiology came by and increased her Metoprolol to 50 mg BID from her normal dose of 25 mg. Now that she is rate controlled we will drop her Cardizem infusion to 5 mg until morning. Patient also complaining of not being able to void. She states that her bladder felt full but she was not able to get it out. We did a bladder scan which shown greater than 600ml in the bladder. I placed an order for nursing to insert fried for urinary retention. After reviewing her home medications and history in the EMR it was noted that she was never placed on halfway anticoagulation for her Atrial fibrillation nor was she put on anticoagulation post THR. Knowing this I added a D-dimer which was elevated at 1.69. I sent her for a PE rule out. CTA of the chest revealed a PE in the left upper lobe. I discussed these findings with Cardiology and it was agreed upon to start her on therapeutic dose of Eliquis for PE protocol. Rocephin was also ordered for UTI coverage. Cardiology if following. Plan for Echocardiogram today. We will also get a venous doppler of bilateral lower extremities tomorrow. Review of Systems Review of Systems: All systems reviewed & are unremarkable except as noted in HPI and below Constitutional: Constitutional: Reports as per HPI and Reports no additional constitutional complaints Eyes: Eyes: Reports as per HPI and Reports no additional eye complaints ENT: Reports system reviewed and no additional complaints, except as documented and Reports as per HPI Cardiovascular: Cardiovascular: Reports as per HPI and Reports no additional cardiovascular complaints Respiratory: Respiratory: Reports as per HPI and Reports no additional respiratory complaints Gastrointestinal: Gastrointestinal: Reports as per HPI and Reports no additional gastrointestinal complaints Genitourinary: Genitourinary: Reports no additional female genitourinary complaints and Reports as per HPI Musculoskeletal: Musculoskeletal: Reports no additional musculoskeletal complaints and Reports as per HPI Integumentary/Breasts: Skin/Breast: Reports system reviewed and no additional complaints, except as docu and Reports as per HPI Neurologic: Reports system reviewed and no additional complaints, except as documented and Reports as per HPI Psychiatric: Psychiatric: Reports no additional psychiatric complaints and Reports as per HPI
[2023-11-29 11:41] LABS: D Dimer 1.69 ug/mL (<0.48)
[2023-11-29 11:48] LABS: Troponin I < 0.012 ng/mL (0.000-0.034)
--- NOTE | 2023-11-29 13:47 | PC.NURSE ---
The pt endorses that she had a allergic reaction after having a MRI. The pt reported itching. Marylu CHRISTINE was given report on events. Per Marylu call CT to see if this is a conflict for a CT scan. CT contacted. Per CT ok for the pt to get MRI scan. Awaiting for available time for CT scan.
--- NOTE | 2023-11-29 14:46 | PC.NURSE ---
Reported results of the CTA. Pulmonary Emboli Left Upper Lobe. Per Marylu BRAILLE TYPIST will review the POC.
[2023-11-29 14:59] LABS: Troponin I < 0.012 ng/mL (0.000-0.034)
--- NOTE | 2023-11-29 15:06 | PM.CNCAR ---
Assessment and Plan Assessment and plan (1) Atrial fibrillation with rapid ventricular response: Code(s): I48.91 - Unspecified atrial fibrillation Status: Acute Assessment and Plan: In atrial fibrillation with RVR. Continue with Diltiazem drip for now. Takes Metoprolol 25mg BID, will increase to 50mg BID for now. Echocardiogram already ordered and pending. Of note, patient's TSH level is slightly low at 0.390, which could be contributing to her atrial fibrillation. Management of her hypothyroidism per the Hospitalist. History of Present Illness History of Present Illness Consult date/time: 11/29/23 15:06 Requesting physician: Jersey Granados MD Consult reason: atrial fibrillation Reason For Visit: Afib w/RVR Narrative: We are consulted for atrial fibrillation with RVR. This is an 82 year old female patient of Dr. Marin'ana paula with paroxysmal atrial fibrillation (not on anticoagulation at home). Patient woke up due to tachycardia and noticed her heart rate was in the 140s. It continued to persist, therefore, she came to ER, which confirmed atrial fibrillation with RVR. She has been started on Diltiazem drip with some improvement in her rates. Review of Systems Review of Systems: All systems reviewed & are unremarkable except as noted in HPI and below (HPI) [facility] Past Medical History Medical History Afib Arthritis of both knees Arthritis of left hip BMI 23.0-23.9, adult Cerebral palsy With right-sided weakness and spasticity. Constipation Hypertension Hypothyroidism Left knee DJD Left leg pain Low vitamin D level Lumbar radiculopathy Osteoarthritis of left hip Seizure disorder Trochanteric bursitis, left hip Unstable gait Vitamin D deficiency Vitamin D deficiency Wears glasses Surgical History Surgical History History of appendectomy History of breast biopsy Bilateral, with benign pathology. History of hysterectomy History of reverse total replacement of right shoulder joint History of tonsillectomy Family History Family History Father Family history of cardiovascular disease Malignant neoplasm of prostate Patient's father is , Onset Age: 80 Mother Heart disease Cancer Patient's mother is Other Arthritis Family history of genitourinary disease Social History Social History Social History: The patient is . She lives in a senior apartment in [place], [place]. She has no biological children. She is a lifelong nonsmoker and denies alcohol and drug use. She designates her stepdaughter, Nighat Francis and her friend Karyna Domínguez as her surrogate decision makers and she wishes to be a full code. Smoking status: Never smoker Second hand tobacco smoke exposure: No Alcohol intake: never Substance use: never Lack of Transportation: No Lack of Food: Never True Current Housing: I Have Housing Concerned About Future Housing: No Difficulty Paying Gas/Electric Bills: No Difficulty Paying for Meds: No Currently Unemployed: No Education: High School Diploma/GED Difficulty w/ Childcare or Family Care: No Living arrangements: alone Occupation/Education: retired Gender identity (if verbalized by the patient): Female Spiritual care concerns: No Meds Home Medications and Allergies Home Medications Medication Instructions Recorded Confirmed Type acetaminophen 500 mg tablet 500 mg PO Q6H PRN pain #120 tabs 04/18/22 10/20/23 Rx (Tylenol Extra Strength) aspirin 325 mg tablet 325 mg PO DAILY #90 tabs 04/18/22 10/20/23 Rx carbidopa 25 mg-levodopa 100 mg See Rx Instructions .Route 04/18/22 10/20/23 Rx tablet .COMPLEX #150 tabs cyanocobalamin (vitamin B-12) 1,000 mcg PO DAILY #12 tabs 04/18/22 10/20/23 Rx 1,000
--- NOTE | 2023-11-29 15:35 | PC.NURSE ---
Marylu CLIENT TECHNICAL PROFESSIONAL given report that the Home medications have been updated in the chart
[2023-11-29] MEDS: METOPROLOL TARTRATE 50 MG TAB PO ×2 (15:44→21:01)
--- NOTE | 2023-11-29 16:02 | PHAR ---
PT'S HOME MED: DILANTIN ER 100 MG CAPSULES VERIFIED BY PHARMACY.
[2023-11-29] MEDS: PHENobarbitaL (*CRX) 30 MG TABLET PO (18:44)
[2023-11-29] MEDS: DOCUSATE SODIUM 100 MG CAPSULE PO (21:00)
[2023-11-29] MEDS: CARBIDOPA/LEVODOPA 25/100 MG TABLET 1 TABLET PO (21:01)
[2023-11-29] MEDS: APIXABAN 5 MG TABLET 10 MG PO (21:01)
[2023-11-30] VITALS (23 sets, daily range): BP systolic 85–110; BP diastolic 41–69; PULSE 75–120; RESP 12–18; TEMP 35.8–36.6; O2SAT 94–98
--- NOTE | 2023-11-30 01:54 | PC.NURSE ---
Daylight Savings Time For Daylight Savings Time Ending in the Fall - Clocks are moved back. For Daylight Savings Time Beginning in the Spring - Clocks are moved ahead. For [facility], the time of change occurs at 0200 hrs. Time is taken from the magnetic observer. This entry on the patient's chart recognizes the change in time reflected during documentation. Example: 2 entries for vital signs may be charted for 0200 hrs.
[2023-11-30 04:40] LABS: Basophils Absolute Auto 0.1 K/mm3 (0.0-0.1); Basophils Percent Auto 1.1 % (0.2-1.2); Eosinophils Absolute Auto 0.3 K/mm3 (0-0.3); Eosinophils Percent Auto 5.1 % (0-4.4); Hematocrit 34.1 % (37.0-47.0); Hemoglobin 10.8 g/dL (12.0-15.0); Immature Granulocyte Absolute 0.02 K/mm3 (0.00-0.031); Immature Granulocyte Percent A 0.3 % (0-0.5); Lymphocytes Absolute Auto 1.33 K/mm3 (0.9-3.2); Lymphocytes Percent Auto 20.7 % (18.3-44.2); Mean Corpuscular HGB Conc 31.7 g/dl (32-36); Mean Corpuscular Hemoglobin 33.5 pg (26-34); Mean Corpuscular Volume 105.9 fl (80-100); Mean Platelet Volume 9.7 fl (7.4-10.4); Monocytes Absolute Auto 0.7 K/mm3 (0.1-0.6); Monocytes Percent Auto 11.2 % (2.6-8.5); Neutrophils Percent Auto 61.6 % (45.5-73.1); Platelet Count Result 294 k/mm3 (150-375); Red Blood Count 3.22 M/mm3 (4.2-5.4); Red Cell Distribution Width 14.5 % (11.5-14.5); White Blood Count 6.4 K/mm3 (4.5-10.0)
[2023-11-30 04:51] LABS: Albumin Level 3.4 g/dL (3.5-5.1); Alkaline Phosphatase 119 U/L (38-126); Anion Gap 3 mmol/L (8-16); Aspartate Amino Transferase 18 U/L (14-36); Bilirubin,Total 0.3 mg/dL (0.2-1.3); Blood Urea Nitrogen 16 mg/dL (7-17); Calcium 8.6 mg/dL (8.4-10.2); Carbon Dioxide 28 mmol/L (22-30); Chloride 108 mmol/L (98-107); Estimated CRCL calculation 46 ml/min; Estimated Glomerular Filt Rate > 60; Glucose 94 mg/dL (65-110); Magnesium 2.2 mg/dL (1.6-2.3); Potassium 3.8 mmol/L (3.4-5.0); Sodium 139 mmol/L (137-145)
[2023-11-30 05:37] LABS: Alanine Aminotransferase < 6 U/L (6-35)
[2023-11-30] MEDS: LEVOTHYROXINE SODIUM 88 MCG TABLET PO (06:12)
[2023-11-30] MEDS: CARBIDOPA/LEVODOPA 25/100 MG TABLET 1 TABLET PO ×4 (06:12→21:18)
[2023-11-30] MEDS: CARBIDOPA/LEVODOPA 12.5/50 MG TABLET 1 TABLET PO ×2 (06:12→12:40)
[2023-11-30] MEDS: CHOLECALCIFEROL 1,000 UNITS TABLET 1000 UNITS PO (09:35)
[2023-11-30] MEDS: hydroCHLOROthiazide 12.5 MG CAPSULE PO (09:35)
[2023-11-30] MEDS: PHENobarbitaL (*CRX) 30 MG TABLET PO ×3 (09:35→16:52)
[2023-11-30] MEDS: THERAPEUTIC MULTIVITAMINS/MINERALS TAB (*BKC) 1 TABLET PO (09:35)
[2023-11-30] MEDS: APIXABAN 5 MG TABLET 10 MG PO ×2 (09:35→21:18)
[2023-11-30] MEDS: TAMSULOSIN HCL 0.4 MG CAPSULE PO (09:35)
--- NOTE | 2023-11-30 10:20 | PM.PNCARD ---
Progress Note: A&P Assessment and Plan (1) Pulmonary embolism: Code(s): I26.99 - Other pulmonary embolism without acute cor pulmonale Status: Acute Assessment and Plan: CTA shows a pulmonary embolus in the left upper lobe. She has been started on Eliquis per the PE dosing. Venous duplex pending. Echocardiogram without evidence of right heart strain. (2) Atrial fibrillation with rapid ventricular response: Code(s): I48.91 - Unspecified atrial fibrillation Status: Acute Assessment and Plan: In atrial fibrillation with RVR on presentation. Likely triggered by the pulmonary embolus. Echocardiogram with preserved LVEF, severely dilated left atrium, mild-moderate mitral regurgitation. Diltiazem drip stopped. Metoprolol increased to 50mg BID. She is currently rate controlled. Can increase dose of Metoprolol as needed for rate control if needed. Of note, patient's TSH level is slightly low at 0.390, which could be contributing to her atrial fibrillation. Management of her hypothyroidism per the Hospitalist. Plan Anticipate discharge home tomorrow if she remains rate controlled. Subjective Date/time seen: 11/30/23 10:20 Interval history: Reason for visit: Atrial fibrillation with RVR HPI: We are consulted for atrial fibrillation with RVR. This is an 82 year old female patient of Dr. Marin's with paroxysmal atrial fibrillation (not on anticoagulation at home). Patient woke up due to tachycardia and noticed her heart rate was in the 140s. It continued to persist, therefore, she came to ER, which confirmed atrial fibrillation with RVR. She has been started on Diltiazem drip with some improvement in her rates. Date of service 11/29: Feeling well. Diltiazem drip stopped as patient rate controlled and blood pressures were getting soft. Tolerating anticoagulation thus far without any bleeding issues. Review of Systems Review of Systems: All systems reviewed & are unremarkable except as noted in HPI and below (HPI) Exam Const: General: comfortable and no acute distress HENMT: Mouth: Yes moist mucous membranes Eyes: General: appearance normal, both eyes and all related structures Sclera: sclerae normal Resp: Effort & Inspection: normal respiratory effort Cardio: Rhythm: abnormal rhythm irregularly irregular Skin: General skin exam: normal color Neuro: Speech: normal speech Psych: Mental Status: mental status grossly normal Affect: normal affect Objective Data Vital Signs Vital Signs: Vital Signs - 24 hr 11/29/23 09:58 11/29/23 10:44 11/29/23 09:43 Temperature Pulse Rate 136 H 111 H 121 H Respiratory Rate 16 17 Blood Pressure 109/66 120/86 Pulse Oximetry 98 98 Oxygen Delivery 11/29/23 09:45 11/29/23 09:46 11/29/23 10:37 Temperature Pulse Rate 140 H 140 H 113 H Respiratory Rate 16 17 14 Blood Pressure 109/66 Pulse Oximetry 99 97 99 Oxygen Delivery 11/29/23 12:00 11/29/23 15:44 11/29/23 15:45 Temperature 36.4 C L 36.4 C Pulse Rate 133 H 121 H 130 H Respiratory Rate 20 16 Blood Pressure 139/54 L 117/60 Pulse Oximetry 99 97 Oxygen Delivery 11/29/23 16:00 11/29/23 12:00 11/29/23 16:00 Temperature Pulse Rate 138 H 103 H Respiratory Rate Blood Pressure Pulse Oximetry Oxygen Delivery Room Air 11/29/23 14:00 11/29/23 18:00 11/29/23 20:41 Temperature 36.3 C L Pulse Rate 103 H 89 94 Respiratory Rate 18 Blood Pressure 104/45 L Pulse Oximetry 96 Oxygen Delivery 11/29/23 21:01 11/29/23 20:00 11/30/23 00:25 Temperature 35.8 C L Pulse Rate 110 H 75 Respiratory Rate 18 Blood Pressure 100/44 L Pulse Oximetry 95 Oxygen Delivery Room Air 11/30/23 00:00 11/29/23 20:00 11/29/23 22:00 Temperature Pulse Rate 84 92 Respiratory Rate Blood Pressure Pulse Oximetry Oxygen Delivery Room Air 11/30/23 00:00 11/30/23 04:00 11/30/23 04:49 Temperature 36.1 C L Pulse Rate 88 88 R
--- NOTE | 2023-11-30 10:34 | P.PNIM_ITS ---
Progress Note: A&P Assessment and Plan (1) Pulmonary embolism: Code(s): I26.99 - Other pulmonary embolism without acute cor pulmonale Status: Acute Assessment and Plan: 11/29/2023: * CTA of the chest showing PE in left upper lobe * Started patient on Eliquis per PE recommendations * Cardiology made aware of new diagnosis. 11/30/2023: * no evidence of right heart strain on echo * Venous doppler negative for DVT * continue with current treatment plan (2) Atrial flutter with rapid ventricular response: Code(s): I48.92 - Unspecified atrial flutter Status: Acute Assessment and Plan: 11/29/23: * EkG showing a rate 125 * patient passing history of AFib however not on any anticoagulation likely due to her history of seizures and cerebral palsy * troponin<0.012, proBNP 898 * metoprolol 25 mg tablet on hold * D-dimer 1.62 * CTA of chest showing PE in left upper lobe, started Eliquis * chest x-ray was negative for any cardiopulmonary disease /process * continuous cardiac monitoring * heart healthy diet * plan for echo * patient 10 mg IV push of diltiazem and started diltiazem drip * continue aspirin 81 mg daily * cardiology consulted, increased metoprolol to 50 mg BID from her home dose of 25mg. 11/30/23: * echo results showing normal LV systolic function with an estimated EF of greater than 70%, normal RV function, no right-sided heart strain * patient remains in AFib however rate controlled, cardiology discontinued dilt iazem drip and we will continue with metoprolol 50 mg b.i.d. for rate control with instructions to titrate up as needed for rate control per Cardiology * continue heart healthy diet * will move out of IMU today to a [facility] floor * continuous cardiac monitoring * troponin negative x2 * cardiology following (3) Acute urinary tract infection: Code(s): N39.0 - Urinary tract infection, site not specified Status: Acute Assessment and Plan: 11/29/2023: * UA positive for nitrates, trace leukocytes, 4+ bacteria * urine culture ordered * patient started on Rocephin * microbiology reviewed and shown a urine culture from 03/20/2020 that shown Klebsiella pneumoniae 11/30/23: * urine culture is still pending * continue Rocephin (4) Urinary retention: Code(s): R33.9 - Retention of urine, unspecified Status: Acute Assessment and Plan: 11/29/2023: * Patient had >600ml in bladder on bladder scan, this could be a contributing factor to her UTI * Otto placed due to urinary retention * Will start Flomax * Patient will need voiding trial in a few days. 11/30/2023: * Otto catheter place * continue Flomax * will do a voiding trial tomorrow (5) Hypothyroidism: Qualifiers: Hypothyroidism type: unspecified Qualified Code(s): E03.9 - Hypothyroidism, unspecified Code(s): E03.9 - Hypothyroidism, unspecified Status: Chronic Assessment and Plan: 11/29/2023: * TSH 0.390 * Synthroid 88 mcg on hold * Will check a free T3 and T4 in the a.m. 11/30/2023: * T4 5.7, free T3 pending * continue to hold Synthroid * she will need to follow up with her primary care physician regarding her low TSH (6) Seizure disorder: Code(s): G40.909 - Epilepsy, unspecified, not intractable, without status epilepticus Status: Chronic Assessment and Plan: 11/29/2023: * continue Dilantin and phenobarbital * of note, patient can only take the brand name of Dilantin which she bro
--- NOTE | 2023-11-30 10:34 | PM.IMPN ---
Progress Note: A&P Assessment and Plan (1) Pulmonary embolism: Code(s): I26.99 - Other pulmonary embolism without acute cor pulmonale Status: Acute Assessment and Plan: 11/29/2023: CTA of the chest showing PE in left upper lobe Started patient on Eliquis per PE recommendations Cardiology made aware of new diagnosis. 11/30/2023: no evidence of right heart strain on echo Venous doppler negative for DVT continue with current treatment plan (2) Atrial flutter with rapid ventricular response: Code(s): I48.92 - Unspecified atrial flutter Status: Acute Assessment and Plan: 11/29/23: EkG showing a rate 125 patient passing history of AFib however not on any anticoagulation likely due to her history of seizures and cerebral palsy troponin<0.012, proBNP 898 metoprolol 25 mg tablet on hold D-dimer 1.62 CTA of chest showing PE in left upper lobe, started Eliquis chest x-ray was negative for any cardiopulmonary disease /process continuous cardiac monitoring heart healthy diet plan for echo patient 10 mg IV push of diltiazem and started diltiazem drip continue aspirin 81 mg daily cardiology consulted, increased metoprolol to 50 mg BID from her home dose of 25mg. 11/30/23: echo results showing normal LV systolic function with an estimated EF of greater than 70%, normal RV function, no right-sided heart strain patient remains in AFib however rate controlled, cardiology discontinued diltiazem drip and we will continue with metoprolol 50 mg b.i.d. for rate control with instructions to titrate up as needed for rate control per Cardiology continue heart healthy diet will move out of IMU today to a [facility] floor continuous cardiac monitoring troponin negative x2 cardiology following (3) Acute urinary tract infection: Code(s): N39.0 - Urinary tract infection, site not specified Status: Acute Assessment and Plan: 11/29/2023: UA positive for nitrates, trace leukocytes, 4+ bacteria urine culture ordered patient started on Rocephin microbiology reviewed and shown a urine culture from 03/20/2020 that shown Klebsiella pneumoniae 11/30/23: urine culture is still pending continue Rocephin (4) Urinary retention: Code(s): R33.9 - Retention of urine, unspecified Status: Acute Assessment and Plan: 11/29/2023: Patient had >600ml in bladder on bladder scan, this could be a contributing factor to her UTI Otto placed due to urinary retention Will start Flomax Patient will need voiding trial in a few days. 11/30/2023: Otto catheter place continue Flomax will do a voiding trial tomorrow (5) Hypothyroidism: Qualifiers: Hypothyroidism type: unspecified Qualified Code(s): E03.9 - Hypothyroidism, unspecified Code(s): E03.9 - Hypothyroidism, unspecified Status: Chronic Assessment and Plan: 11/29/2023: TSH 0.390 Synthroid 88 mcg on hold Will check a free T3 and T4 in the a.m. 11/30/2023: T4 5.7, free T3 pending continue to hold Synthroid she will need to follow up with her primary care physician regarding her low TSH (6) Seizure disorder: Code(s): G40.909 - Epilepsy, unspecified, not intractable, without status epilepticus Status: Chronic Assessment and Plan: 11/29/2023: continue Dilantin and phenobarbital of note, patient can only take the brand name of Dilantin which she brought with her to the hospital, will get verified with pharmacy to use her home med. seizure precaution 11/30/2023: no change to current treatment plan (7) Hypertension: Qualifiers: Hypertension type: essential hypertension Qualified Code(s): I10 - Essential (primary) hypertension Code(s): I10 - Essential (primary) hypertension Status: Chronic Assessment and Plan: 11/29/2023: blood pressure ranging 109/66 to 120/86 lindsey
[2023-11-30] MEDS: METOPROLOL TARTRATE 50 MG TAB PO ×2 (12:38→21:18)
--- NOTE | 2023-11-30 16:37 | PC.NURSE ---
0756 Report given on the pt b/p. Per Dr. Duffy/Anjana RN 1.) D/C Diltazem gtt. Diltazem d/c immediately The pt denies distress during events.
--- NOTE | 2023-11-30 17:30 | ECG_ITS ---
Measurements Intervals [place] Rate: 110 P: NM: 0 QRS: 0 QRSD: 77 T: 2 QT: 333 QTc: 452 Interpretive Statements ATRIAL FLUTTER/TACHYCARDIA WITH RAPID VENTRICULAR RESPONSE EARLY PRECORDIAL R/S TRANSITION BORDERLINE T WAVE ABNORMALITY- INFERIOR LEADS BASELINE ARTIFACT- I, II, III ABNORMAL ECG COMPARED TO ECG 11/29/2023 07:10:29 NO SIGNIFICANT CHANGES Electronically Signed On 12-01-2023 6:32:17 CDT by Levar Reece D.O.
[2023-11-30] MEDS: METOPROLOL TARTRATE 25 MG TABLET PO (18:17)
--- NOTE | 2023-11-30 18:32 | PC.NURSE ---
EKG Aflutter with Rapid Ventricular Response. Per report Dr. Boyer given Report with new interventions 1.) Atrial Flutter /Tachycardia with Rapid Ventricular Response HR 110. New interventions for Metoprolol 25 mg IVP x 1. Report given on /P per Dr. Boyer give Metoprolol. Interventions given per Julio C MOLINA.
--- NOTE | 2023-11-30 18:50 | PC.NURSE ---
Repot given on the pt is now A Flutter. report given on previous interventions T.O.R.B. 1.) Dr. Dufyf / This Nurse 1.) Amiodarone 300 mg Bolus Now x 1 dose. Severe reactions warnings given. Dr Duffy contacted again et given report on Severe Warnings. T.O.R.B /This Nurse 1.) Decrease Amiodarone dose to Amiodarone 150 mg Bolus now x 1 dose. Severe reactions reviewed with the provider. Per Dr. Clive tyay to give. Report given on b/p
[2023-11-30] MEDS: AMIODARONE 150 MG/D5W 100 ML 150 MG/100 ML BAG 600 MG IV CONT (19:08)
--- NOTE | 2023-11-30 19:44 | PC.NURSE ---
Amiodarone dose given et tolerated well. No manifestations of distress noted s/p admin or during admin.
[2023-11-30] MEDS: DOCUSATE SODIUM 100 MG CAPSULE PO (21:18)
[2023-12-01] VITALS (22 sets, daily range): BP systolic 90–139; BP diastolic 54–78; PULSE 46–132; RESP 16–20; TEMP 36.4–36.6; O2SAT 97–99
[2023-12-01 04:48] LABS: Basophils Absolute Auto 0.1 K/mm3 (0.0-0.1); Eosinophils Absolute Auto 0.4 K/mm3 (0-0.3); Eosinophils Percent Auto 7.1 % (0-4.4); Hematocrit 33.1 % (37.0-47.0); Hemoglobin 10.5 g/dL (12.0-15.0); Immature Granulocyte Absolute 0.02 K/mm3 (0.00-0.031); Immature Granulocyte Percent A 0.3 % (0-0.5); Lymphocytes Absolute Auto 1.14 K/mm3 (0.9-3.2); Lymphocytes Percent Auto 18.7 % (18.3-44.2); Mean Corpuscular HGB Conc 31.7 g/dl (32-36); Mean Corpuscular Hemoglobin 33.2 pg (26-34); Mean Corpuscular Volume 104.7 fl (80-100); Mean Platelet Volume 9.9 fl (7.4-10.4); Monocytes Absolute Auto 0.7 K/mm3 (0.1-0.6); Monocytes Percent Auto 11.7 % (2.6-8.5); Neutrophils Absolute Auto 3.7 K/mm3 (1.3-6.7); Neutrophils Percent Auto 61.2 % (45.5-73.1); Platelet Count Result 255 k/mm3 (150-375); Red Blood Count 3.16 M/mm3 (4.2-5.4); Red Cell Distribution Width 14.3 % (11.5-14.5); White Blood Count 6.1 K/mm3 (4.5-10.0)
[2023-12-01 04:58] LABS: Alanine Aminotransferase 6 U/L (6-35); Albumin Level 3.4 g/dL (3.5-5.1); Alkaline Phosphatase 104 U/L (38-126); Anion Gap 3 mmol/L (8-16); Aspartate Amino Transferase 19 U/L (14-36); Bilirubin,Total 0.2 mg/dL (0.2-1.3); Blood Urea Nitrogen 19 mg/dL (7-17); Calcium 8.4 mg/dL (8.4-10.2); Carbon Dioxide 27 mmol/L (22-30); Chloride 105 mmol/L (98-107); Estimated CRCL calculation 41 ml/min; Estimated Glomerular Filt Rate > 60; Glucose 96 mg/dL (65-110); Potassium 4.2 mmol/L (3.4-5.0); Sodium 135 mmol/L (137-145)
--- NOTE | 2023-12-01 05:45 | PC.NURSE ---
Pt. heart rate sustaining in the 120s. Called Dr. Loera. Ordered to give the 0900 dose of Metoprolol 50 mg early.
[2023-12-01] MEDS: LEVOTHYROXINE SODIUM 88 MCG TABLET PO (05:57)
[2023-12-01] MEDS: METOPROLOL TARTRATE 50 MG TAB PO ×2 (05:58→21:08)
--- NOTE | 2023-12-01 08:53 | PM.PNCARD ---
Progress Note: A&P Assessment and Plan (1) Pulmonary embolism: Code(s): I26.99 - Other pulmonary embolism without acute cor pulmonale Status: Acute Assessment and Plan: CTA shows a pulmonary embolus in the left upper lobe. She has been started on Eliquis per the PE dosing. Venous duplex pending. Echocardiogram without evidence of right heart strain. (2) Atrial fibrillation with rapid ventricular response: Code(s): I48.91 - Unspecified atrial fibrillation Status: Acute Assessment and Plan: In atrial fibrillation with RVR on presentation. Likely triggered by the pulmonary embolus. Echocardiogram with preserved LVEF, severely dilated left atrium, mild-moderate mitral regurgitation. Diltiazem drip stopped. Metoprolol increased to 50mg BID. She is currently rate controlled. Can increase dose of Metoprolol as needed for rate control if needed. Of note, patient's TSH level is slightly low at 0.390, which could be contributing to her atrial fibrillation. Management of her hypothyroidism per the Hospitalist. Plan Anticipate discharge home tomorrow if she remains rate controlled. Subjective Date/time seen: 12/01/23 08:53 Interval history: Reason for visit: Atrial fibrillation with RVR HPI: We are consulted for atrial fibrillation with RVR. This is an 82 year old female patient of Dr. Marin's with paroxysmal atrial fibrillation (not on anticoagulation at home). Patient woke up due to tachycardia and noticed her heart rate was in the 140s. It continued to persist, therefore, she came to ER, which confirmed atrial fibrillation with RVR. She has been started on Diltiazem drip with some improvement in her rates. Date of service 11/29: Feeling well. Diltiazem drip stopped as patient rate controlled and blood pressures were getting soft. Tolerating anticoagulation thus far without any bleeding issues. Date of service 12/01/2023: She continues to feel well today. No palpitations, shortness of breath, chest pain. Heart rate is variable, generally 95-120bpm on telemetry. Review of Systems Review of Systems: All systems reviewed & are unremarkable except as noted in HPI and below (HPI) Exam Const: General: comfortable and no acute distress HENMT: Mouth: Yes moist mucous membranes Eyes: General: appearance normal, both eyes and all related structures Sclera: sclerae normal Resp: Effort & Inspection: normal respiratory effort Cardio: Rate: tachycardic Rhythm: abnormal rhythm irregularly irregular Skin: General skin exam: normal color Neuro: Speech: normal speech Psych: Mental Status: mental status grossly normal Affect: normal affect Objective Data Vital Signs Vital Signs: Vital Signs - 24 hr 11/30/23 08:59 11/30/23 09:47 11/30/23 10:00 Temperature Pulse Rate 105 H 100 Respiratory Rate Blood Pressure 108/54 L Pulse Oximetry 96 Oxygen Delivery Room Air 11/30/23 12:11 11/30/23 12:38 11/30/23 09:35 Temperature 36.5 C Pulse Rate 96 83 Respiratory Rate 12 Blood Pressure 85/52 L 108/52 L Pulse Oximetry 98 Oxygen Delivery 11/30/23 12:00 11/30/23 15:49 11/30/23 16:00 Temperature 36.2 C L Pulse Rate 116 H Respiratory Rate 16 Blood Pressure 101/69 Pulse Oximetry 95 Oxygen Delivery Room Air Room Air 11/30/23 18:17 11/30/23 18:00 11/30/23 19:08 Temperature Pulse Rate 116 H 120 H 120 H Respiratory Rate Blood Pressure 102/50 L Pulse Oximetry Oxygen Delivery 11/30/23 19:29 11/30/23 20:27 11/30/23 21:18 Temperature 36.6 C Pulse Rate 96 112 H 109 H Respiratory Rate 16 Blood Pressure 94/62 L 110/50 L Pulse Oximetry 95 Oxygen Delivery 12/01/23 00:09 11/30/23 20:00 12/01/23 00:00 Temperature 36.5 C Pulse Rate 110 H Respiratory Rate 16 Blood Pressure 90/54 L Pulse Oximetry 97 Oxygen Delivery Room Air Room Air 11/30/23 20:00 11/30/23 22:00 12/01/23 00:00 Temperature Pulse Rate 100
[2023-12-01] MEDS: THERAPEUTIC MULTIVITAMINS/MINERALS TAB (*BKC) 1 TABLET PO (10:38)
[2023-12-01] MEDS: TAMSULOSIN HCL 0.4 MG CAPSULE PO (10:38)
[2023-12-01] MEDS: CARBIDOPA/LEVODOPA 12.5/50 MG TABLET 1 TABLET PO (10:38)
[2023-12-01] MEDS: PHENobarbitaL (*CRX) 30 MG TABLET PO ×3 (10:38→17:24)
[2023-12-01] MEDS: ASPIRIN 81 MG CHEWABLE TABLET PO (10:38)
[2023-12-01] MEDS: CHOLECALCIFEROL 1,000 UNITS TABLET 1000 UNITS PO (10:39)
[2023-12-01] MEDS: APIXABAN 5 MG TABLET 10 MG PO ×2 (10:39→21:08)
[2023-12-01] MEDS: CARBIDOPA/LEVODOPA 25/100 MG TABLET 1 TABLET PO ×3 (10:58→21:08)
[2023-12-01] MEDS: CYANOCOBALAMIN 1,000 MCG TABLET 1000 MCG PO (10:58)
--- NOTE | 2023-12-01 11:25 | P.PNIM_ITS ---
Progress Note: A&P Assessment and Plan (1) Pulmonary embolism: Code(s): I26.99 - Other pulmonary embolism without acute cor pulmonale Status: Acute Assessment and Plan: 11/29/2023: * CTA of the chest showing PE in left upper lobe * Started patient on Eliquis per PE recommendations * Cardiology made aware of new diagnosis. 11/30/2023: * no evidence of right heart strain on echo * Venous doppler negative for DVT * continue with current treatment plan 12/01/23: * Continue with current treatment plan (2) Atrial flutter with rapid ventricular response: Code(s): I48.92 - Unspecified atrial flutter Status: Acute Assessment and Plan: 11/29/23: * EkG showing a rate 125 * patient passing history of AFib however not on any anticoagulation likely due to her history of seizures and cerebral palsy * troponin<0.012, proBNP 898 * metoprolol 25 mg tablet on hold * D-dimer 1.62 * CTA of chest showing PE in left upper lobe, started Eliquis * chest x-ray was negative for any cardiopulmonary disease /process * continuous cardiac monitoring * heart healthy diet * plan for echo * patient 10 mg IV push of diltiazem and started diltiazem drip * continue aspirin 81 mg daily * cardiology consulted, increased metoprolol to 50 mg BID from her home dose of 25mg. 11/30/23: * echo results showing normal LV systolic function with an estimated EF of greater than 70%, normal RV function, no right-sided heart strain * patient remains in AFib however rate controlled, cardiology discontinued diltiazem drip and we will continue with metoprolol 50 mg b.i.d. for rate control with instructions to titrate up as needed for rate control per Cardiology * continue heart healthy diet * will move out of IMU today to a [facility] floor * continuous cardiac monitoring * troponin negative x2 * cardiology following 12/01/23: * HR ranging 90's-120's * Metoprolol increased to 50 mg TID * Blood pressure labile, will watch for any further decrease in blood pressure with the increase in her Metoprolol dose * Cardiology following (3) Acute urinary tract infection: Code(s): N39.0 - Urinary tract infection, site not specified Status: Acute Assessment and Plan: 11/29/2023: * UA positive for nitrates, trace leukocytes, 4+ bacteria * urine culture ordered * patient started on Rocephin * microbiology reviewed and shown a urine culture from 03/20/2020 that shown Klebsiella pneumoniae 11/30/23: * urine culture is still pending * continue Rocephin 12/01/23: * Urine culture still pending * Continue Rocephin (4) Urinary retention: Code(s): R33.9 - Retention of urine, unspecified Status: Acute Assessment and Plan: 11/29/2023: * Patient had >600ml in bladder on bladder scan, this could be a contributing factor to her UTI * Otto placed due to urinary retention * Will start Flomax * Patient will need voiding trial in a few days. 11/30/2023: * Otto catheter place * continue Flomax * will do a voiding trial tomorrow 12/01/23: * Otto catheter in place * Continue Flomax * Voiding trial in the morning (5) Hypothyroidism: Qualifiers: Hypothyroidism type: unspecified Qualified Code(s): E03.9 - Hypothyroidism, unspecified Code(s): E03.9 - Hypothyroidism, unspecified Status: Chronic Assessment and Plan: 11/29/2023: * TSH 0.390 * Synthroid 88 mcg on hold * Will check a free T3 and T4 in the a.m.
--- NOTE | 2023-12-01 11:25 | PM.IMPN ---
Progress Note: A&P Assessment and Plan (1) Pulmonary embolism: Code(s): I26.99 - Other pulmonary embolism without acute cor pulmonale Status: Acute Assessment and Plan: 11/29/2023: CTA of the chest showing PE in left upper lobe Started patient on Eliquis per PE recommendations Cardiology made aware of new diagnosis. 11/30/2023: no evidence of right heart strain on echo Venous doppler negative for DVT continue with current treatment plan 12/01/23: Continue with current treatment plan (2) Atrial flutter with rapid ventricular response: Code(s): I48.92 - Unspecified atrial flutter Status: Acute Assessment and Plan: 11/29/23: EkG showing a rate 125 patient passing history of AFib however not on any anticoagulation likely due to her history of seizures and cerebral palsy troponin<0.012, proBNP 898 metoprolol 25 mg tablet on hold D-dimer 1.62 CTA of chest showing PE in left upper lobe, started Eliquis chest x-ray was negative for any cardiopulmonary disease /process continuous cardiac monitoring heart healthy diet plan for echo patient 10 mg IV push of diltiazem and started diltiazem drip continue aspirin 81 mg daily cardiology consulted, increased metoprolol to 50 mg BID from her home dose of 25mg. 11/30/23: echo results showing normal LV systolic function with an estimated EF of greater than 70%, normal RV function, no right-sided heart strain patient remains in AFib however rate controlled, cardiology discontinued diltiazem drip and we will continue with metoprolol 50 mg b.i.d. for rate control with instructions to titrate up as needed for rate control per Cardiology continue heart healthy diet will move out of IMU today to a [facility] floor continuous cardiac monitoring troponin negative x2 cardiology following 12/01/23: HR ranging 90's-120's Metoprolol increased to 50 mg TID Blood pressure labile, will watch for any further decrease in blood pressure with the increase in her Metoprolol dose Cardiology following (3) Acute urinary tract infection: Code(s): N39.0 - Urinary tract infection, site not specified Status: Acute Assessment and Plan: 11/29/2023: UA positive for nitrates, trace leukocytes, 4+ bacteria urine culture ordered patient started on Rocephin microbiology reviewed and shown a urine culture from 03/20/2020 that shown Klebsiella pneumoniae 11/30/23: urine culture is still pending continue Rocephin 12/01/23: Urine culture still pending Continue Rocephin (4) Urinary retention: Code(s): R33.9 - Retention of urine, unspecified Status: Acute Assessment and Plan: 11/29/2023: Patient had >600ml in bladder on bladder scan, this could be a contributing factor to her UTI Otto placed due to urinary retention Will start Flomax Patient will need voiding trial in a few days. 11/30/2023: Otto catheter place continue Flomax will do a voiding trial tomorrow 12/01/23: Otto catheter in place Continue Flomax Voiding trial in the morning (5) Hypothyroidism: Qualifiers: Hypothyroidism type: unspecified Qualified Code(s): E03.9 - Hypothyroidism, unspecified Code(s): E03.9 - Hypothyroidism, unspecified Status: Chronic Assessment and Plan: 11/29/2023: TSH 0.390 Synthroid 88 mcg on hold Will check a free T3 and T4 in the a.m. 11/30/2023: T4 5.7, free T3 pending continue to hold Synthroid she will need to follow up with her primary care physician regarding her low TSH 12/01/23: No change to current treatment plan (6) Seizure disorder: Code(s): G40.909 - Epilepsy, unspecified, not intractable, without status epilepticus Status: Chronic Assessment and Plan: 11/29/2023: continue Dilantin and phenobarbital of note, patient can only take the brand name of Dilantin which she brought with her to
[2023-12-01] MEDS: METOPROLOL TARTRATE 25 MG TABLET PO (13:24)
[2023-12-01] MEDS: DOCUSATE SODIUM 100 MG CAPSULE PO (21:08)
[2023-12-02] VITALS (18 sets, daily range): BP systolic 102–112; BP diastolic 54–65; PULSE 90–122; RESP 16–18; TEMP 36.4–36.8; O2SAT 95–99
[2023-12-02 03:45] LABS: Hematocrit 31.8 % (37.0-47.0); Hemoglobin 10.3 g/dL (12.0-15.0); Mean Corpuscular Volume 103.9 fl (80-100); Red Blood Count 3.06 M/mm3 (4.2-5.4); White Blood Count 6.8 K/mm3 (4.5-10.0)
[2023-12-02 03:46] LABS: Basophils Absolute Auto 0.1 K/mm3 (0.0-0.1); Basophils Percent Auto 0.9 % (0.2-1.2); Eosinophils Absolute Auto 0.5 K/mm3 (0-0.3); Eosinophils Percent Auto 6.6 % (0-4.4); Immature Granulocyte Absolute 0.02 K/mm3 (0.00-0.031); Immature Granulocyte Percent A 0.3 % (0-0.5); Lymphocytes Absolute Auto 1.04 K/mm3 (0.9-3.2); Lymphocytes Percent Auto 15.3 % (18.3-44.2); Mean Corpuscular HGB Conc 32.4 g/dl (32-36); Mean Corpuscular Hemoglobin 33.7 pg (26-34); Mean Platelet Volume 9.1 fl (7.4-10.4); Monocytes Absolute Auto 0.7 K/mm3 (0.1-0.6); Monocytes Percent Auto 9.6 % (2.6-8.5); Neutrophils Absolute Auto 4.6 K/mm3 (1.3-6.7); Neutrophils Percent Auto 67.3 % (45.5-73.1); Platelet Count Result 223 k/mm3 (150-375); Red Cell Distribution Width 14.2 % (11.5-14.5)
[2023-12-02 03:55] LABS: Alanine Aminotransferase 6 U/L (6-35); Albumin Level 3.4 g/dL (3.5-5.1); Alkaline Phosphatase 110 U/L (38-126); Anion Gap 1 mmol/L (8-16); Aspartate Amino Transferase 21 U/L (14-36); Bilirubin,Total 0.3 mg/dL (0.2-1.3); Blood Urea Nitrogen 20 mg/dL (7-17); Calcium 8.4 mg/dL (8.4-10.2); Carbon Dioxide 28 mmol/L (22-30); Chloride 106 mmol/L (98-107); Estimated CRCL calculation 46 ml/min; Estimated Glomerular Filt Rate > 60; Glucose 99 mg/dL (65-110); Potassium 3.7 mmol/L (3.4-5.0); Sodium 135 mmol/L (137-145)
[2023-12-02] MEDS: METOPROLOL TARTRATE 50 MG TAB PO ×3 (06:24→22:00)
[2023-12-02] MEDS: CARBIDOPA/LEVODOPA 25/100 MG TABLET 1 TABLET PO ×4 (06:24→22:00)
[2023-12-02] MEDS: CARBIDOPA/LEVODOPA 12.5/50 MG TABLET 1 TABLET PO ×2 (06:24→10:10)
[2023-12-02] MEDS: LEVOTHYROXINE SODIUM 88 MCG TABLET PO (06:25)
--- NOTE | 2023-12-02 09:00 | P.PNIM_ITS ---
Progress Note: A&P Assessment and Plan (1) Pulmonary embolism: Code(s): I26.99 - Other pulmonary embolism without acute cor pulmonale Status: Acute Assessment and Plan: 11/29/2023: * CTA of the chest showing PE in left upper lobe * Started patient on Eliquis per PE recommendations * Cardiology made aware of new diagnosis. 11/30/2023: * no evidence of right heart strain on echo * Venous doppler negative for DVT * continue with current treatment plan 12/01/23: * Continue with current treatment plan (2) Atrial flutter with rapid ventricular response: Code(s): I48.92 - Unspecified atrial flutter Status: Acute Assessment and Plan: 11/29/23: * EkG showing a rate 125 * patient passing history of AFib however not on any anticoagulation likely due to her history of seizures and cerebral palsy * troponin<0.012, proBNP 898 * metoprolol 25 mg tablet on hold * D-dimer 1.62 * CTA of chest showing PE in left upper lobe, started Eliquis * chest x-ray was negative for any cardiopulmonary disease /process * continuous cardiac monitoring * heart healthy diet * plan for echo * patient 10 mg IV push of diltiazem and started diltiazem drip * continue aspirin 81 mg daily * cardiology consulted, increased metoprolol to 50 mg BID from her home dose of 25mg. 11/30/23: * echo results showing normal LV systolic function with an estimated EF of greater than 70%, normal RV function, no right-sided heart strain * patient remains in AFib however rate controlled, cardiology discontinued diltiazem drip and we will continue with metoprolol 50 mg b.i.d. for rate control with instructions to titrate up as needed for rate control per Cardiology * continue heart healthy diet * will move out of IMU today to a [facility] floor * continuous cardiac monitoring * troponin negative x2 * cardiology following 12/01/23: * HR ranging 90's-120's * Metoprolol increased to 50 mg TID * Blood pressure labile, will watch for any further decrease in blood pressure with the increase in her Metoprolol dose * Cardiology following 12/02/23: * Heart rate ranging in the 90s to 110s * cardiology following * Continue PT and OT (3) Acute urinary tract infection: Code(s): N39.0 - Urinary tract infection, site not specified Status: Acute Assessment and Plan: 11/29/2023: * UA positive for nitrates, trace leukocytes, 4+ bacteria * urine culture ordered * patient started on Rocephin * microbiology reviewed and shown a urine culture from 03/20/2020 that shown Klebsiella pneumoniae 11/30/23: * urine culture is still pending * continue Rocephin 12/01/23: * Urine culture still pending * Continue Rocephin 12/02/2023: * urine culture showing Klebsiella pneumonia on final read * Rocephin discontinued * start cefdinir with an end date on 12/06/2023 at 9:00 p.m. (4) Urinary retention: Code(s): R33.9 - Retention of urine, unspecified Status: Acute Assessment and Plan: 11/29/2023: * Patient had >600ml in bladder on bladder scan, this could be a contributing factor to her UTI * Otto placed due to urinary retention * Will start Flomax * Patient will need voiding trial in a few days. 11/30/2023: * Otto catheter place * continue Flomax * will do a voiding trial tomorrow 12/01/23: * Otto catheter in place * Continue Flomax * Voiding trial in the morning 12/02/2023: * DC Otto * voiding trial today * continue F
--- NOTE | 2023-12-02 09:00 | PM.IMPN ---
Progress Note: A&P Assessment and Plan (1) Pulmonary embolism: Code(s): I26.99 - Other pulmonary embolism without acute cor pulmonale Status: Acute Assessment and Plan: 11/29/2023: CTA of the chest showing PE in left upper lobe Started patient on Eliquis per PE recommendations Cardiology made aware of new diagnosis. 11/30/2023: no evidence of right heart strain on echo Venous doppler negative for DVT continue with current treatment plan 12/01/23: Continue with current treatment plan (2) Atrial flutter with rapid ventricular response: Code(s): I48.92 - Unspecified atrial flutter Status: Acute Assessment and Plan: 11/29/23: EkG showing a rate 125 patient passing history of AFib however not on any anticoagulation likely due to her history of seizures and cerebral palsy troponin<0.012, proBNP 898 metoprolol 25 mg tablet on hold D-dimer 1.62 CTA of chest showing PE in left upper lobe, started Eliquis chest x-ray was negative for any cardiopulmonary disease /process continuous cardiac monitoring heart healthy diet plan for echo patient 10 mg IV push of diltiazem and started diltiazem drip continue aspirin 81 mg daily cardiology consulted, increased metoprolol to 50 mg BID from her home dose of 25mg. 11/30/23: echo results showing normal LV systolic function with an estimated EF of greater than 70%, normal RV function, no right-sided heart strain patient remains in AFib however rate controlled, cardiology discontinued diltiazem drip and we will continue with metoprolol 50 mg b.i.d. for rate control with instructions to titrate up as needed for rate control per Cardiology continue heart healthy diet will move out of IMU today to a [facility] floor continuous cardiac monitoring troponin negative x2 cardiology following 12/01/23: HR ranging 90's-120's Metoprolol increased to 50 mg TID Blood pressure labile, will watch for any further decrease in blood pressure with the increase in her Metoprolol dose Cardiology following 12/02/23: Heart rate ranging in the 90s to 110s cardiology following Continue PT and OT (3) Acute urinary tract infection: Code(s): N39.0 - Urinary tract infection, site not specified Status: Acute Assessment and Plan: 11/29/2023: UA positive for nitrates, trace leukocytes, 4+ bacteria urine culture ordered patient started on Rocephin microbiology reviewed and shown a urine culture from 03/20/2020 that shown Klebsiella pneumoniae 11/30/23: urine culture is still pending continue Rocephin 12/01/23: Urine culture still pending Continue Rocephin 12/02/2023: urine culture showing Klebsiella pneumonia on final read Rocephin discontinued start cefdinir with an end date on 12/06/2023 at 9:00 p.m. (4) Urinary retention: Code(s): R33.9 - Retention of urine, unspecified Status: Acute Assessment and Plan: 11/29/2023: Patient had >600ml in bladder on bladder scan, this could be a contributing factor to her UTI Otto placed due to urinary retention Will start Flomax Patient will need voiding trial in a few days. 11/30/2023: Otto catheter place continue Flomax will do a voiding trial tomorrow 12/01/23: Otto catheter in place Continue Flomax Voiding trial in the morning 12/02/2023: DC Otto voiding trial today continue Flomax will get a bladder scan after her 1st void today to make sure there is no more urinary retention (5) Hypothyroidism: Qualifiers: Hypothyroidism type: unspecified Qualified Code(s): E03.9 - Hypothyroidism, unspecified Code(s): E03.9 - Hypothyroidism, unspecified Status: Chronic Assessment and Plan: 11/29/2023: TSH 0.390 Synthroid 88 mcg on hold Will check a free T3 and T4 in the a.m. 11/30/2023: T4 5.7, free T3 pending continue to hold Synthroid she will need
[2023-12-02] MEDS: ASPIRIN 81 MG CHEWABLE TABLET PO (10:06)
[2023-12-02] MEDS: TAMSULOSIN HCL 0.4 MG CAPSULE PO (10:07)
[2023-12-02] MEDS: PHENobarbitaL (*CRX) 30 MG TABLET PO ×3 (10:07→17:03)
[2023-12-02] MEDS: APIXABAN 5 MG TABLET 10 MG PO ×2 (10:07→21:59)
[2023-12-02] MEDS: CHOLECALCIFEROL 1,000 UNITS TABLET 1000 UNITS PO (10:07)
[2023-12-02] MEDS: CEFDINIR 300 MG CAPSULE PO ×2 (10:10→22:00)
--- NOTE | 2023-12-02 10:56 | PM.PNCARD ---
Progress Note: A&P Assessment and Plan (1) Pulmonary embolism: Code(s): I26.99 - Other pulmonary embolism without acute cor pulmonale Status: Acute Assessment and Plan: CTA shows a pulmonary embolus in the left upper lobe. She has been started on Eliquis per the PE dosing. Echocardiogram without evidence of right heart strain. (2) Atrial fibrillation with rapid ventricular response: Code(s): I48.91 - Unspecified atrial fibrillation Status: Acute Assessment and Plan: In atrial fibrillation with RVR on presentation. Likely triggered by the pulmonary embolus. Echocardiogram with preserved LVEF, severely dilated left atrium, mild-moderate mitral regurgitation. Of note, patient's TSH level is slightly low at 0.390, which could be contributing to her atrial fibrillation. Management of her hypothyroidism per the Hospitalist. Diltiazem drip stopped 11/28. Metoprolol increased to 50mg q8h. Rate better controlled on metoprolol 50mg q8h. She is asymptomatic As her rate is acceptable at this point, OK for hospital discharge from a cardiac standpoint. Can consider outpatient DCCV in ~4 weeks since she will have been anticoagulated for PE Will ensure she has follow up in our office with Dr. Marin. Subjective Date/time seen: 12/02/23 10:56 Interval history: Reason for visit: Atrial fibrillation with RVR HPI: We are consulted for atrial fibrillation with RVR. This is an 82 year old female patient of Dr. Marin's with paroxysmal atrial fibrillation (not on anticoagulation at home). Patient woke up due to tachycardia and noticed her heart rate was in the 140s. It continued to persist, therefore, she came to ER, which confirmed atrial fibrillation with RVR. She has been started on Diltiazem drip with some improvement in her rates. Date of service 11/29: Feeling well. Diltiazem drip stopped as patient rate controlled and blood pressures were getting soft. Tolerating anticoagulation thus far without any bleeding issues. Date of service 12/01/2023: She continues to feel well today. No palpitations, shortness of breath, chest pain. Heart rate is variable, generally 95-120bpm on telemetry. Date of service 12/02/2023: Once again continues to feel well and denies any palpitations, shortness of breath, chest pain, swelling. On telemetry this morning, heart rate has trended downward, generally high 90's - 110. Review of Systems Review of Systems: All systems reviewed & are unremarkable except as noted in HPI and below (HPI) Exam Const: General: comfortable and no acute distress HENMT: Mouth: Yes moist mucous membranes Eyes: General: appearance normal, both eyes and all related structures Sclera: sclerae normal Resp: Effort & Inspection: normal respiratory effort Cardio: Rate: regular rate Rhythm: abnormal rhythm irregularly irregular Skin: General skin exam: normal color Neuro: Speech: normal speech Psych: Mental Status: mental status grossly normal Affect: normal affect Objective Data Vital Signs Vital Signs: Vital Signs - 24 hr 12/01/23 12:00 12/01/23 13:19 12/01/23 13:15 Temperature 36.5 C Pulse Rate 93 132 H 118 H Respiratory Rate 18 Blood Pressure 127/65 103/58 L Pulse Oximetry 97 Oxygen Delivery 12/01/23 13:24 12/01/23 15:31 12/01/23 16:00 Temperature 36.5 C Pulse Rate 115 H 77 Respiratory Rate 20 Blood Pressure 114/58 L Pulse Oximetry 97 Oxygen Delivery Room Air 12/01/23 12:00 12/01/23 16:00 12/01/23 12:00 Temperature Pulse Rate 110 H Respiratory Rate Blood Pressure Pulse Oximetry Oxygen Delivery Room Air Room Air 12/01/23 14:00 12/01/23 16:00 12/01/23 18:00 Temperature Pulse Rate 106 H 118 H 122 H Respiratory Rate Blood Pressure Pulse Oximetry Oxygen Delivery 12/01/23 19:54 12/01/23 20:27 12/01/23 21:08 Temperature 36.5 C Pulse Rate 122 H 103 H 130 H Respiratory Rate 20 18 Blood Pressure
[2023-12-02] MEDS: THERAPEUTIC MULTIVITAMINS/MINERALS TAB (*BKC) 1 TABLET PO (13:31)
[2023-12-02] MEDS: DOCUSATE SODIUM 100 MG CAPSULE PO (22:00)
[2023-12-03] VITALS (20 sets, daily range): BP systolic 100–145; BP diastolic 50–68; PULSE 70–117; RESP 16–20; TEMP 36.3–36.7; O2SAT 95–100
[2023-12-03 04:58] LABS: Basophils Absolute Auto 0.1 K/mm3 (0.0-0.1); Basophils Percent Auto 0.9 % (0.2-1.2); Eosinophils Absolute Auto 0.5 K/mm3 (0-0.3); Eosinophils Percent Auto 9.1 % (0-4.4); Hematocrit 31.8 % (37.0-47.0); Hemoglobin 10.1 g/dL (12.0-15.0); Immature Granulocyte Absolute 0.02 K/mm3 (0.00-0.031); Immature Granulocyte Percent A 0.4 % (0-0.5); Lymphocytes Absolute Auto 1.14 K/mm3 (0.9-3.2); Lymphocytes Percent Auto 20.4 % (18.3-44.2); Mean Corpuscular HGB Conc 31.8 g/dl (32-36); Mean Corpuscular Hemoglobin 33.2 pg (26-34); Mean Corpuscular Volume 104.6 fl (80-100); Mean Platelet Volume 9.9 fl (7.4-10.4); Monocytes Absolute Auto 0.6 K/mm3 (0.1-0.6); Monocytes Percent Auto 10.5 % (2.6-8.5); Neutrophils Absolute Auto 3.3 K/mm3 (1.3-6.7); Neutrophils Percent Auto 58.7 % (45.5-73.1); Platelet Count Result 236 k/mm3 (150-375); Red Blood Count 3.04 M/mm3 (4.2-5.4); Red Cell Distribution Width 14.1 % (11.5-14.5); White Blood Count 5.6 K/mm3 (4.5-10.0)
[2023-12-03 05:14] LABS: Albumin Level 3.3 g/dL (3.5-5.1); Alkaline Phosphatase 106 U/L (38-126); Anion Gap 3 mmol/L (8-16); Aspartate Amino Transferase 24 U/L (14-36); Bilirubin,Total 0.3 mg/dL (0.2-1.3); Blood Urea Nitrogen 21 mg/dL (7-17); Calcium 8.4 mg/dL (8.4-10.2); Carbon Dioxide 27 mmol/L (22-30); Chloride 106 mmol/L (98-107); Estimated CRCL calculation 46 ml/min; Estimated Glomerular Filt Rate > 60; Glucose 92 mg/dL (65-110); Potassium 4.2 mmol/L (3.4-5.0); Sodium 136 mmol/L (137-145)
[2023-12-03] MEDS: LEVOTHYROXINE SODIUM 88 MCG TABLET PO (05:33)
[2023-12-03] MEDS: METOPROLOL TARTRATE 50 MG TAB PO ×3 (05:33→21:03)
[2023-12-03] MEDS: CARBIDOPA/LEVODOPA 25/100 MG TABLET 1 TABLET PO ×4 (05:33→22:20)
[2023-12-03] MEDS: CARBIDOPA/LEVODOPA 12.5/50 MG TABLET 1 TABLET PO ×2 (05:40→11:42)
[2023-12-03 05:56] LABS: Alanine Aminotransferase < 6 U/L (6-35)
[2023-12-03] MEDS: ASPIRIN 81 MG CHEWABLE TABLET PO (09:11)
[2023-12-03] MEDS: CEFDINIR 300 MG CAPSULE PO ×2 (09:15→21:02)
[2023-12-03] MEDS: APIXABAN 5 MG TABLET 10 MG PO ×2 (09:15→21:02)
[2023-12-03] MEDS: PHENobarbitaL (*CRX) 30 MG TABLET PO ×3 (09:15→17:03)
[2023-12-03] MEDS: ACETAMINOPHEN 325 MG TABLET 650 MG PO ×2 (09:15→21:02)
[2023-12-03] MEDS: TAMSULOSIN HCL 0.4 MG CAPSULE PO (09:15)
[2023-12-03] MEDS: CHOLECALCIFEROL 1,000 UNITS TABLET 1000 UNITS PO (09:15)
[2023-12-03] MEDS: CYANOCOBALAMIN 1,000 MCG TABLET 1000 MCG PO (09:19)
[2023-12-03] MEDS: THERAPEUTIC MULTIVITAMINS/MINERALS TAB (*BKC) 1 TABLET PO (11:42)
--- NOTE | 2023-12-03 16:08 | P.PNIM_ITS ---
Progress Note: A&P Assessment and Plan (1) Pulmonary embolism: Code(s): I26.99 - Other pulmonary embolism without acute cor pulmonale Status: Acute Assessment and Plan: * CTA of the chest showing PE in left upper lobe * con't Eliquis * no evidence of right heart strain on echo * Venous doppler negative for DVT * follow up with cardiology outpatient (2) Atrial flutter with rapid ventricular response: Code(s): I48.92 - Unspecified atrial flutter Status: Chronic Assessment and Plan: * echo results showing normal LV systolic function with an estimated EF of greater than 70%, normal RV function, no right-sided heart strain * patient remains in AFib however rate controlled, cardiology discontinued diltiazem drip * continue with metoprolol 50 mg TID. * continuous cardiac monitoring * troponin negative x2 * f/u cardiology outpatient (3) Acute urinary tract infection: Code(s): N39.0 - Urinary tract infection, site not specified Status: Acute Assessment and Plan: * urine culture showing Klebsiella pneumonia * cefdinir with an end date on 12/06/2023 at 9:00 p.m. (4) Urinary retention: Code(s): R33.9 - Retention of urine, unspecified Status: Resolved Assessment and Plan: * DC Otto * successful voiding trial * continue Flomax (5) Hypothyroidism: Qualifiers: Hypothyroidism type: unspecified Qualified Code(s): E03.9 - Hypothyroidism, unspecified Code(s): E03.9 - Hypothyroidism, unspecified Status: Chronic Assessment and Plan: * T4 5.7, free T3 pending * continue to hold Synthroid * she will need to follow up with her primary care physician regarding her low TSH (6) Seizure disorder: Code(s): G40.909 - Epilepsy, unspecified, not intractable, without status epilepticus Status: Chronic Assessment and Plan: * continue Dilantin and phenobarbital * of note, patient can only take the brand name of Dilantin which she brought with her to the hospital, will get verified with pharmacy to use her home med. * seizure precaution (7) Hypertension: Qualifiers: Hypertension type: essential hypertension Qualified Code(s): I10 - Essential (primary) hypertension Code(s): I10 - Essential (primary) hypertension Status: Chronic Assessment and Plan: * continue hydrochlorothiazide (8) Cerebral palsy: Qualifiers: Cerebral palsy type: unspecified type Qualified Code(s): G80.9 - Cerebral palsy, unspecified Code(s): G80.9 - Cerebral palsy, unspecified Status: Chronic Assessment and Plan: * continue carbidopa- levodopa * walks with roll-aide walker, no history of falls * PT/OT Subjective Date/time seen: 12/03/23 16:08 Interval history: Patient sitting up in chair today, doing well. She continues to be intermittently tachycardic. She has voided n her own after Otto catheter removed. She is having some GI upset from the AB, but denies any other complaints. PT and OT working with patient. Plan to return to [facility] on d/c, likely to tomorrow if she remains stable. Review of Systems Review of Systems: All systems reviewed & are unremarkable except as noted in HPI and below Exam Narrative: General: In no acute distress, well nourished Head: atraumatic, no encephalopathy Eyes: EOMI, PERRLA ENT: moist mucous membranes Nec
--- NOTE | 2023-12-03 16:08 | PM.IMPN ---
Progress Note: A&P Assessment and Plan (1) Pulmonary embolism: Code(s): I26.99 - Other pulmonary embolism without acute cor pulmonale Status: Acute Assessment and Plan: CTA of the chest showing PE in left upper lobe con't Eliquis no evidence of right heart strain on echo Venous doppler negative for DVT follow up with cardiology outpatient (2) Atrial flutter with rapid ventricular response: Code(s): I48.92 - Unspecified atrial flutter Status: Chronic Assessment and Plan: echo results showing normal LV systolic function with an estimated EF of greater than 70%, normal RV function, no right-sided heart strain patient remains in AFib however rate controlled, cardiology discontinued diltiazem drip continue with metoprolol 50 mg TID. continuous cardiac monitoring troponin negative x2 f/u cardiology outpatient (3) Acute urinary tract infection: Code(s): N39.0 - Urinary tract infection, site not specified Status: Acute Assessment and Plan: urine culture showing Klebsiella pneumonia cefdinir with an end date on 12/06/2023 at 9:00 p.m. (4) Urinary retention: Code(s): R33.9 - Retention of urine, unspecified Status: Resolved Assessment and Plan: DC Otto successful voiding trial continue Flomax (5) Hypothyroidism: Qualifiers: Hypothyroidism type: unspecified Qualified Code(s): E03.9 - Hypothyroidism, unspecified Code(s): E03.9 - Hypothyroidism, unspecified Status: Chronic Assessment and Plan: T4 5.7, free T3 pending continue to hold Synthroid she will need to follow up with her primary care physician regarding her low TSH (6) Seizure disorder: Code(s): G40.909 - Epilepsy, unspecified, not intractable, without status epilepticus Status: Chronic Assessment and Plan: continue Dilantin and phenobarbital of note, patient can only take the brand name of Dilantin which she brought with her to the hospital, will get verified with pharmacy to use her home med. seizure precaution (7) Hypertension: Qualifiers: Hypertension type: essential hypertension Qualified Code(s): I10 - Essential (primary) hypertension Code(s): I10 - Essential (primary) hypertension Status: Chronic Assessment and Plan: continue hydrochlorothiazide (8) Cerebral palsy: Qualifiers: Cerebral palsy type: unspecified type Qualified Code(s): G80.9 - Cerebral palsy, unspecified Code(s): G80.9 - Cerebral palsy, unspecified Status: Chronic Assessment and Plan: continue carbidopa- levodopa walks with roll-aide walker, no history of falls PT/OT Subjective Date/time seen: 12/03/23 16:08 Interval history: Patient sitting up in chair today, doing well. She continues to be intermittently tachycardic. She has voided n her own after Otto catheter removed. She is having some GI upset from the AB, but denies any other complaints. PT and OT working with patient. Plan to return to [facility] on d/c, likely to tomorrow if she remains stable. Review of Systems Review of Systems: All systems reviewed & are unremarkable except as noted in HPI and below Exam Narrative: General: In no acute distress, well nourished Head: atraumatic, no encephalopathy Eyes: EOMI, PERRLA ENT: moist mucous membranes Neck: supple Cardiac: Normal S1 and S2. Irregular rate and rhythm, Atrial fibrillation, rate ranging 90's-120's. No murmur, gallops or friction rubs, peripheral pulses intact. Respiratory: Lungs clear to auscultation Gastrointestinal: soft, non-tender, normoactive bowel sounds. :voiding without difficulty on her own Extremities: moves all extremities well, no edema Skin: left hip surgical incision, well approximated, healing Neuro: Alert and oriented x4, cranial nerves intact, no neuro deficits. Psych: normal mood, norm
[2023-12-04] VITALS (12 sets, daily range): BP systolic 94–114; BP diastolic 56–65; PULSE 85–141; RESP 18–20; TEMP 36.2–36.4; O2SAT 96–99
[2023-12-04 04:51] LABS: Basophils Percent Auto 0.8 % (0.2-1.2); Eosinophils Absolute Auto 0.4 K/mm3 (0-0.3); Eosinophils Percent Auto 8.1 % (0-4.4); Immature Granulocyte Absolute 0.01 K/mm3 (0.00-0.031); Immature Granulocyte Percent A 0.2 % (0-0.5); Lymphocytes Absolute Auto 0.96 K/mm3 (0.9-3.2); Lymphocytes Percent Auto 18.4 % (18.3-44.2); Mean Corpuscular HGB Conc 33.3 g/dl (32-36); Mean Platelet Volume 9.8 fl (7.4-10.4); Monocytes Absolute Auto 0.5 K/mm3 (0.1-0.6); Monocytes Percent Auto 9.8 % (2.6-8.5); Neutrophils Absolute Auto 3.3 K/mm3 (1.3-6.7); Neutrophils Percent Auto 62.7 % (45.5-73.1); Platelet Count Result 220 k/mm3 (150-375); Red Blood Count 2.94 M/mm3 (4.2-5.4); Red Cell Distribution Width 14.1 % (11.5-14.5); White Blood Count 5.2 K/mm3 (4.5-10.0)
[2023-12-04 05:10] LABS: Alanine Aminotransferase 6 U/L (6-35); Albumin Level 3.4 g/dL (3.5-5.1); Alkaline Phosphatase 114 U/L (38-126); Anion Gap 4 mmol/L (8-16); Aspartate Amino Transferase 29 U/L (14-36); Bilirubin,Total 0.3 mg/dL (0.2-1.3); Blood Urea Nitrogen 21 mg/dL (7-17); Calcium 8.4 mg/dL (8.4-10.2); Carbon Dioxide 26 mmol/L (22-30); Chloride 107 mmol/L (98-107); Estimated CRCL calculation 46 ml/min; Estimated Glomerular Filt Rate > 60; Glucose 96 mg/dL (65-110); Potassium 3.8 mmol/L (3.4-5.0); Sodium 137 mmol/L (137-145)
[2023-12-04] MEDS: METOPROLOL TARTRATE 50 MG TAB PO ×2 (05:59→13:15)
[2023-12-04] MEDS: CARBIDOPA/LEVODOPA 25/100 MG TABLET 1 TABLET PO ×2 (06:00→11:23)
[2023-12-04] MEDS: CARBIDOPA/LEVODOPA 12.5/50 MG TABLET 1 TABLET PO ×2 (06:00→11:23)
[2023-12-04] MEDS: LEVOTHYROXINE SODIUM 88 MCG TABLET PO (06:00)
[2023-12-04] MEDS: ASPIRIN 81 MG CHEWABLE TABLET PO (09:20)
[2023-12-04] MEDS: APIXABAN 5 MG TABLET 10 MG PO (09:22)
[2023-12-04] MEDS: ACETAMINOPHEN 500 MG TABLET 1000 MG PO (09:22)
[2023-12-04] MEDS: TAMSULOSIN HCL 0.4 MG CAPSULE PO (09:24)
[2023-12-04] MEDS: PHENobarbitaL (*CRX) 30 MG TABLET PO ×2 (09:24→13:15)
[2023-12-04] MEDS: CHOLECALCIFEROL 1,000 UNITS TABLET 1000 UNITS PO (09:25)
[2023-12-04] MEDS: CEFDINIR 300 MG CAPSULE PO (09:25)
[2023-12-04] MEDS: THERAPEUTIC MULTIVITAMINS/MINERALS TAB (*BKC) 1 TABLET PO (11:23)
--- NOTE | 2023-12-04 14:15 | PC.NURSE ---
Report given to Sofia at [facility]
--- NOTE | 2023-12-04 14:24 | P.DS_ITS ---
DS: Admitting Diagnosis Discharge Date 12/04/23 Admitting Diagnosis Arrhythmia/palpitations DS: Discharge Diagnosis Discharge Diagnosis (1) Pulmonary embolism: Code(s): I26.99 - Other pulmonary embolism without acute cor pulmonale Status: Acute Assessment and Plan: * CTA of the chest showing PE in left upper lobe * con't Eliquis 10 mg BID through 12/05 then transition to 5 mg BID thereafter * no evidence of right heart strain on echo * Venous doppler negative for DVT * follow up with cardiology outpatient (2) Atrial flutter with rapid ventricular response: Code(s): I48.92 - Unspecified atrial flutter Status: Chronic Assessment and Plan: * echo results showing normal LV systolic function with an estimated EF of greater than 70%, normal RV function, no right-sided heart strain * patient remains in AFib however rate controlled * continue with metoprolol 50 mg TID. * f/u cardiology outpatient - cleared for d/c (3) Acute urinary tract infection: Code(s): N39.0 - Urinary tract infection, site not specified Status: Acute Assessment and Plan: * urine culture showing Klebsiella pneumonia * cefdinir with an end date on 12/06/2023 at 9:00 p.m. (4) Urinary retention: Code(s): R33.9 - Retention of urine, unspecified Status: Resolved Assessment and Plan: * DC Otto * successful voiding trial * continue Flomax (5) Hypothyroidism: Qualifiers: Hypothyroidism type: unspecified Qualified Code(s): E03.9 - Hypothyroidism, unspecified Code(s): E03.9 - Hypothyroidism, unspecified Status: Chronic Assessment and Plan: * T4 5.7, free T3 pending * continue to hold Synthroid * she will need to follow up with her primary care physician regarding her low TSH (6) Seizure disorder: Code(s): G40.909 - Epilepsy, unspecified, not intractable, without status epilepticus Status: Chronic Assessment and Plan: * continue Dilantin and phenobarbital (7) Hypertension: Qualifiers: Hypertension type: essential hypertension Qualified Code(s): I10 - Essential (primary) hypertension Code(s): I10 - Essential (primary) hypertension Status: Chronic Assessment and Plan: * continue hydrochlorothiazide (8) Cerebral palsy: Qualifiers: Cerebral palsy type: unspecified type Qualified Code(s): G80.9 - Cerebral palsy, unspecified Code(s): G80.9 - Cerebral palsy, unspecified Status: Chronic Assessment and Plan: * continue carbidopa- levodopa * walks with roll-aide walker, no history of falls * PT/OT DS: Summary Hospital Course Hospital Course: Patient is an 82 year old female with a PMH of A-fib (not previously on anticoagulation), cerebral palsy, hypertension, hypothyroidism, seizure disorder, osteoarthritis admitted with palpitations/arrhythmia. She denied any fever, chills, shortness of breath, chest pain, nausea, vomiting, diarrhea, abdominal pain or headache. She does report that she had a total hip replacement done at [facility] about 1 month ago and just finished her rehab for that and was now at [place]. Work up in the hospital included a chest x-ray that was negative. EKG showing Atrial flutter with RVR with a rate of 125. Initial labs shown Hgb 11.1, BG-98-115, Alk phos 137, proBNP 898, TSH 0.390. UA showing positive nitrates, trace leukocytes, 4+ bacteria. Urine culture showed Klebsiella pneumoniae. Patient sees cardiology al
--- NOTE | 2023-12-04 14:24 | PM.DS ---
DS: Admitting Diagnosis Discharge Date 12/04/23 Admitting Diagnosis Arrhythmia/palpitations DS: Discharge Diagnosis Discharge Diagnosis (1) Pulmonary embolism: Code(s): I26.99 - Other pulmonary embolism without acute cor pulmonale Status: Acute Assessment and Plan: CTA of the chest showing PE in left upper lobe con't Eliquis 10 mg BID through 12/05 then transition to 5 mg BID thereafter no evidence of right heart strain on echo Venous doppler negative for DVT follow up with cardiology outpatient (2) Atrial flutter with rapid ventricular response: Code(s): I48.92 - Unspecified atrial flutter Status: Chronic Assessment and Plan: echo results showing normal LV systolic function with an estimated EF of greater than 70%, normal RV function, no right-sided heart strain patient remains in AFib however rate controlled continue with metoprolol 50 mg TID. f/u cardiology outpatient - cleared for d/c (3) Acute urinary tract infection: Code(s): N39.0 - Urinary tract infection, site not specified Status: Acute Assessment and Plan: urine culture showing Klebsiella pneumonia cefdinir with an end date on 12/06/2023 at 9:00 p.m. (4) Urinary retention: Code(s): R33.9 - Retention of urine, unspecified Status: Resolved Assessment and Plan: DC Otto successful voiding trial continue Flomax (5) Hypothyroidism: Qualifiers: Hypothyroidism type: unspecified Qualified Code(s): E03.9 - Hypothyroidism, unspecified Code(s): E03.9 - Hypothyroidism, unspecified Status: Chronic Assessment and Plan: T4 5.7, free T3 pending continue to hold Synthroid she will need to follow up with her primary care physician regarding her low TSH (6) Seizure disorder: Code(s): G40.909 - Epilepsy, unspecified, not intractable, without status epilepticus Status: Chronic Assessment and Plan: continue Dilantin and phenobarbital (7) Hypertension: Qualifiers: Hypertension type: essential hypertension Qualified Code(s): I10 - Essential (primary) hypertension Code(s): I10 - Essential (primary) hypertension Status: Chronic Assessment and Plan: continue hydrochlorothiazide (8) Cerebral palsy: Qualifiers: Cerebral palsy type: unspecified type Qualified Code(s): G80.9 - Cerebral palsy, unspecified Code(s): G80.9 - Cerebral palsy, unspecified Status: Chronic Assessment and Plan: continue carbidopa- levodopa walks with roll-aide walker, no history of falls PT/OT DS: Summary Hospital Course Hospital Course: Patient is an 82 year old female with a PMH of A-fib (not previously on anticoagulation), cerebral palsy, hypertension, hypothyroidism, seizure disorder, osteoarthritis admitted with palpitations/arrhythmia. She denied any fever, chills, shortness of breath, chest pain, nausea, vomiting, diarrhea, abdominal pain or headache. She does report that she had a total hip replacement done at [facility] about 1 month ago and just finished her rehab for that and was now at [place]. Work up in the hospital included a chest x-ray that was negative. EKG showing Atrial flutter with RVR with a rate of 125. Initial labs shown Hgb 11.1, BG-98-115, Alk phos 137, proBNP 898, TSH 0.390. UA showing positive nitrates, trace leukocytes, 4+ bacteria. Urine culture showed Klebsiella pneumoniae. Patient sees cardiology already, but followed while in patient, dose of Metoprolol increased to 50mg Q8 hours and cleared for d/c by cardiology. Patient will finish course of cefdinir PO and d/c on Eliquis for her PE found on CT. Status at Discharge Functional status at discharge: uses cane/walker Overall status at discharge: patient is back to baseline Time Spent with Patient Time attestation: Total time spent providing and/or coordinating discharge services
[2023-12-24 15:09] LABS: T3 Free 2.7 pg/mL
== END 2023-12-04 15:00 | DRG 176 ==
LOC: ANHED 09:10 → ANHIMU 10:08
PROVIDERS: Nurse Practitioner Acute Care; Admitting Provider Internal Medicine; Emergency Provider Emergency Medicine; PCP Physician Assistant; Visit Provider Nurse Practitioner
DX: I26.99 Other pulmonary embolism without acute cor pulmonale (principal); N39.0 Urinary tract infection, site not specified; I48.92 Unspecified atrial flutter; B96.1 Klebsiella pneumoniae [K. pneumoniae] as the cause of diseases classified elsewhere; I48.91 Unspecified atrial fibrillation; E55.9 Vitamin D deficiency, unspecified; E03.9 Hypothyroidism, unspecified; G40.909 Epilepsy, unspecified, not intractable, without status epilepticus; G80.9 Cerebral palsy, unspecified; I10 Essential (primary) hypertension; M17.0 Bilateral primary osteoarthritis of knee; R33.9 Retention of urine, unspecified; Z96.642 Presence of left artificial hip joint; Z96.611 Presence of right artificial shoulder joint; Z90.49 Acquired absence of other specified parts of digestive tract; Z90.710 Acquired absence of both cervix and uterus; Z79.82 Long term (current) use of aspirin; Z28.21 Immunization not carried out because of patient refusal
CPT/HCPCS: 36415; 71045; 71275; 80053; 81001; 83735; 83880; 84436; 84443; 84480; 84484; 85025; 85380; 85610; 85730; 87077; 87086; 87088; 87186; 93005; 93306; 93970; 96365; 96376; 97110; 97116; 97161; 97165; 97530; 97535; 99285; A9270; G0378; J0282; J0696; Q9967

== ENCOUNTER 2024-01-08 01:04 | Day surgery (SDC) | payer MEDICARE, OTHER, MEDICAID, SELFPAY ==
[2024-01-07 14:06] VITALS: BMI 22.6
[2024-01-08] VITALS (10 sets, daily range): BP systolic 99–112; BP diastolic 57–83; PULSE 54–110; RESP 12–18; TEMP 36.2; O2SAT 95–100
--- NOTE | 2024-01-08 08:30 | ECG_ITS ---
SEE SCANNED COPY FOR CONFIRMED REPORT MTDD
[2024-01-08 09:08] LABS: Anion Gap 9 mmol/L (4-12); Blood Urea Nitrogen 24 mg/dL (7-17); Calcium 9.7 mg/dL (8.4-10.2); Carbon Dioxide 25 mmol/L (22-30); Chloride 104 mmol/L (98-107); Estimated CRCL calculation 40 ml/min; Estimated Glomerular Filt Rate > 60; Glucose 100 mg/dL (65-110); Magnesium 2.1 mg/dL (1.6-2.3); Potassium 3.8 mmol/L (3.4-5.0); Sodium 138 mmol/L (137-145)
--- NOTE | 2024-01-08 09:37 | WPDMODSED ---
Moderate Sedation Note-Pt Data Patient Data Diagnosis: Atrial fibrillation Present Complaint: Atrial fibrillation Procedure to be performed/Plan: Elective cardioversion Moderate sedation Allergies Allergy/AdvReac Type Severity Reaction Status Date / Time No Known Allergies Allergy Verified 01/08/24 08:38 Home Medications Medication Instructions Recorded Confirmed Type acetaminophen 500 mg tablet 500 mg PO Q6H PRN pain #120 tabs 04/18/22 01/08/24 Rx (Tylenol Extra Strength) carbidopa 25 mg-levodopa 100 mg See Rx Instructions .Route 04/18/22 01/08/24 Rx tablet .COMPLEX #150 tabs docusate sodium 100 mg tablet 100 - 200 mg PO QHS #90 tabs 04/18/22 01/08/24 Rx cholecalciferol (vitamin D3) 25 25 mcg PO DAILY 01/24/23 01/08/24 History mcg (1,000 unit) capsule hydrochlorothiazide 12.5 mg tablet 12.5 mg PO DAILY #90 tabs 05/07/23 01/07/24 Rx phenobarbital 30 mg tablet 30 mg PO TID #90 tabs 08/25/23 01/08/24 Rx Dilantin Extended 100 mg capsule 100 mg PO TID #90 caps 09/30/23 01/08/24 Rx (phenytoin sodium extended) calcium carbonate 600 mg-vitamin 1 cap PO BID 11/29/23 01/08/24 History D3 12.5 mcg (500 unit) capsule (Calcium 600 with Vitamin D3) apixaban 5 mg tablet (Eliquis) 5 mg PO BID #60 tabs 12/31/23 01/08/24 Rx metoprolol tartrate 50 mg tablet 50 mg PO TID 01/01/24 01/08/24 History Current Medications: Active Medications Sodium Chloride (Normal Saline Iv) 1,000 mls @ 30 mls/hr IV CONT .Q24H MANN Sedation/Anesthesia: No previous sedation/anesthesia problems (including family history). [facility] Past Medical History Medical History Afib Arthritis of both knees Arthritis of left hip BMI 23.0-23.9, adult Cerebral palsy With right-sided weakness and spasticity. Constipation Hypertension Hypothyroidism Left knee DJD Left leg pain Low vitamin D level Lumbar radiculopathy Osteoarthritis of left hip Pulmonary embolism Diagnosed 11/29/23 Seizure disorder Trochanteric bursitis, left hip Unstable gait Vitamin D deficiency Vitamin D deficiency Wears glasses Surgical History Surgical History History of appendectomy History of breast biopsy Bilateral, with benign pathology. 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 She lives in a senior apartment in [place], [place]. She has no biological children. She is a lifelong nonsmoker and denies alcohol and drug use. She designates her stepdaughter, Nighat Francis and her friend Karyna Domínguez as her surrogate decision makers and she wishes to be a full code. Smoking status: Never smoker Second hand tobacco smoke exposure: No Alcohol intake: never Substance use: never Lack of Transportation: No Lack of Food: Never True Current Housing: I Have Housing Concerned About Future Housing: No Difficulty Paying Gas/Electric Bills: No Difficulty Paying for Meds: No Currently Unemployed: No Education: High School Diploma/GED Difficulty w/ Childcare or Family Care: No Living arrangements: alone Occupation/Education: retired Gender identity (if verbalized by the patient): Female Spiritual care concerns: No Mod Sed Physical Exam Physical Exam Pre Procedural Exam: Normal: Appearance, Eyes, Ears, Nose, Neck, Throat, Airway, Lungs
--- NOTE | 2024-01-08 09:46 | WPDCARDVER ---
Cardioversion Cardioversion Date of procedure: 01/08/24 Procedure: Electrical cardioversion Moderate sedation Pre-op diagnosis: Atrial fibrillation Post-op diagnosis: Same Indications: Atrial fibrillation Description of procedure: After discussing risks, benefits alternatives of procedure patient agreeable via verbal and written informed consent. Risks discussed included shocking into more problematic heart rhythm, , adverse reaction to anesthesia, skin irritation or burn, stroke. After establishing continuous telemetry monitoring, pulse oxygenation serial blood pressure assessments, procedure was started. Procedure start time 9:40 a.m. Procedure stop time 9:44 a.m. Complications: None Blood loss: None Sedation: Sedation with 2 mg of Versed and 25 mcg of fentanyl. Medications were administered and patient was monitored by Mary kunz RN Findings: Successful latter-day of sinus rhythm from atrial fibrillation using 150 joules of biphasic synchronized energy Conclusion: 1. Moderate sedation 2. Successful elective electrical cardioversion using 150 joules of synchronized biphasic energy to restore sinus rhythm from AFib
--- NOTE | 2024-01-08 10:30 | ECG_ITS ---
SEE SCANNED COPY FOR CONFIRMED REPORT MTDD
== END 2024-01-08 11:10 | disposition home or self-care (01) ==
PROVIDERS: PCP Physician Assistant; Visit Provider Internal Medicine Cardiovascular Disease
PROC: 5A2204Z Restoration of Cardiac Rhythm, Single (ICD-10-PCS; principal; 2024-01-08 10:00)
DX: I48.0 Paroxysmal atrial fibrillation (principal); I10 Essential (primary) hypertension; E03.9 Hypothyroidism, unspecified; E55.9 Vitamin D deficiency, unspecified; M81.0 Age-related osteoporosis without current pathological fracture; G20.A1 Parkinson's disease without dyskinesia, without mention of fluctuations; Z79.82 Long term (current) use of aspirin; Z79.891 Long term (current) use of opiate analgesic; Z79.01 Long term (current) use of anticoagulants; Z98.890 Other specified postprocedural states; Z86.711 Personal history of pulmonary embolism; Z86.73 Personal history of transient ischemic attack (TIA), and cerebral infarction without residual deficits; Z80.0 Family history of malignant neoplasm of digestive organs; Z80.42 Family history of malignant neoplasm of prostate; Z82.49 Family history of ischemic heart disease and other diseases of the circulatory system
CPT/HCPCS: 36415; 80048; 83735; 92960; J2250; J3010; J7030

== ENCOUNTER 2024-02-10 17:46 | Inpatient (IN) | payer MEDICARE, OTHER, MEDICAID, SELFPAY ==
--- NOTE | ~2024-02-10 | XR_ITS ---
EXAMINATION: XR chest 1V portable DATE: 02/10/2024 18:12 INDICATION: Dyspnea. Atrial fibrillation. TECHNIQUE: frontal view of the chest was obtained. COMPARISON: Chest radiograph and CT dated 11/29/2023 FINDINGS: Subtle bilateral increased interstitial pattern suggesting mild pulmonary edema. Bilateral perihilar and basilar airspace opacities which could represent additional more dense pulmonary edema, atelectas is or pneumonia. Blunting at the bilateral costophrenic angles consistent with small bilateral pleura l effusions. No pneumothorax. Heart size is normal. Reverse right total shoulder arthroplasty. Modera te osteoarthritis at the left glenohumeral and bilateral acromioclavicular joints. Moderate thoracolu mbar levoscoliosis. IMPRESSION: 1. Diffuse mild interstitial and bilateral perihilar and basilar airspace opacities most likely mild pulmonary edema and associated atelectasis although differential includes pneumonia. 2. Small bilateral pleural effusions. Reviewed, dictated and finalized at location A. IMPRESSION: 1. Diffuse mild interstitial and bilateral perihilar and basilar airspace opaci ties most likely mild pulmonary edema and associated atelectasis although diffe rential includes pneumonia. 2. Small bilateral pleural effusions.
--- NOTE | ~2024-02-10 | XR_ITS ---
EXAMINATION: XR chest 1V portable DATE: 02/12/2024 13:33 INDICATION: Shortness of breath. TECHNIQUE: A single frontal view of the chest was obtained. COMPARISON: Chest view 02/10/2024, chest CT 11/29/2023 FINDINGS: There is small right and moderate-sized left pleural effusions. There is mild scarring at t he lung apices. There are airspace opacities in the perihilar regions and at the lung bases. No pneum othorax. The heart size is normal. There is a right shoulder arthroplasty. IMPRESSION: 1. Worsening airspace opacities in the perihilar regions and at the lung bases, likely a combination of pulmonary edema and atelectasis. 2. Small right and moderate-sized left pleural effusions with worsening on the left. Reviewed, dictated and finalized at location A.
--- NOTE | 2024-02-10 17:54 | ECG_ITS ---
SEE SCANNED COPY FOR CONFIRMED REPORT MTDD
[2024-02-10 17:55] VITALS: BP 125/68; PULSE 118; RESP 16; TEMP 36.8; O2SAT 91
[2024-02-10 18:11] VITALS: O2SAT 96
[2024-02-10 18:14] LABS: Basophils Absolute Auto 0.1 K/mm3 (0.0-0.1); Eosinophils Absolute Auto 0.2 K/mm3 (0-0.3); Eosinophils Percent Auto 3.7 % (0-4.4); Hematocrit 38.8 % (37.0-47.0); Hemoglobin 12.7 g/dL (12.0-15.0); Immature Granulocyte Absolute 0.02 K/mm3 (0.00-0.031); Immature Granulocyte Percent A 0.3 % (0-0.5); Lymphocytes Absolute Auto 1.46 K/mm3 (0.9-3.2); Lymphocytes Percent Auto 24.8 % (18.3-44.2); Mean Corpuscular HGB Conc 32.7 g/dl (32-36); Mean Corpuscular Hemoglobin 32.9 pg (26-34); Mean Corpuscular Volume 100.5 fl (80-100); Mean Platelet Volume 9.6 fl (7.4-10.4); Monocytes Absolute Auto 0.5 K/mm3 (0.1-0.6); Monocytes Percent Auto 8.5 % (2.6-8.5); Neutrophils Absolute Auto 3.6 K/mm3 (1.3-6.7); Neutrophils Percent Auto 61.7 % (45.5-73.1); Platelet Count Result 218 k/mm3 (150-375); Red Blood Count 3.86 M/mm3 (4.2-5.4); Red Cell Distribution Width 14.4 % (11.5-14.5); White Blood Count 5.9 K/mm3 (4.5-10.0)
[2024-02-10 18:25] LABS: Alanine Aminotransferase 11 U/L (6-35); Albumin Level 4.4 g/dL (3.5-5.1); Alkaline Phosphatase 100 U/L (38-126); Anion Gap 10 mmol/L (4-12); Aspartate Amino Transferase 37 U/L (14-36); Bilirubin,Total 0.4 mg/dL (0.2-1.3); Blood Urea Nitrogen 23 mg/dL (7-17); Calcium 8.9 mg/dL (8.4-10.2); Carbon Dioxide 22 mmol/L (22-30); Chloride 107 mmol/L (98-107); Estimated CRCL calculation 40 ml/min; Estimated Glomerular Filt Rate > 60; Glucose 139 mg/dL (65-110); Potassium 4.1 mmol/L (3.4-5.0); Sodium 139 mmol/L (137-145)
[2024-02-10 18:34] LABS: INR 1.5; Prothrombin Time 18.7 Seconds (11.1-14.7)
[2024-02-10 18:35] LABS: Partial Thromboplastin Time 30.7 Seconds (22.3-36.8)
[2024-02-10 18:36] LABS: NT Pro B Type Natriuretic Pept 1930 pg/mL (19.9-100); Troponin I < 0.012 ng/mL (0.000-0.034)
--- NOTE | 2024-02-10 18:57 | ED.GENADULT ---
HPI - General Adult General Chief complaint: Shortness of Breath/Dyspnea Stated complaint: SOB, back in afib Time Seen by Provider: 02/10/24 18:06 History of Present Illness HPI narrative: this is an 83-year-old female with history of atrial fibrillation and pulmonary embolism on Eliquis presenting for difficulty breathing x1 day. the patient says that the episodes are associated with a dry cough and palpitations. She denies fevers chills chest pain abdominal pain or lower extremity edema. She was diagnosed with a PE and has been taking her Eliquis religiously. She was also recently diagnosed with atrial fibrillation and had a cardioversion performed in December but believes that she has been back into AFib. Related Data Home Medications Medication Instructions Recorded Confirmed cholecalciferol (vitamin D3) 25 25 mcg PO DAILY 01/24/23 02/06/24 mcg (1,000 unit) capsule calcium carbonate 600 mg-vitamin 1 cap PO BID 11/29/23 02/06/24 D3 12.5 mcg (500 unit) capsule (Calcium 600 with Vitamin D3) metoprolol tartrate 50 mg tablet 50 mg PO TID 01/01/24 02/06/24 Allergies Allergy/AdvReac Type Severity Reaction Status Date / Time No Known Allergies Allergy Verified 01/28/24 07:58 [facility] Past Medical History Medical History Afib Arthritis of both knees Arthritis of left hip BMI 23.0-23.9, adult Cerebral palsy With right-sided weakness and spasticity. Constipation Hypertension Hypothyroidism Left knee DJD Left leg pain Low vitamin D level Lumbar radiculopathy Osteoarthritis of left hip Pulmonary embolism Diagnosed 11/29/23 Seizure disorder Trochanteric bursitis, left hip Unstable gait Vitamin D deficiency Vitamin D deficiency Wears glasses Surgical History Surgical History History of appendectomy History of breast biopsy Bilateral, with benign pathology. 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 She lives in a senior apartment in [place], [place]. She has no biological children. She is a lifelong nonsmoker and denies alcohol and drug use. She designates her stepdaughter, Nighat Francis and her friend Karyna Domínguez as her surrogate decision makers and she wishes to be a full code. Smoking status: Never smoker Second hand tobacco smoke exposure: No Alcohol intake: never Substance use: never Lack of Transportation: No Lack of Food: Never True Current Housing: I Have Housing Concerned About Future Housing: No Difficulty Paying Gas/Electric Bills: No Difficulty Paying for Meds: No Currently Unemployed: No Education: High School Diploma/GED Difficulty w/ Childcare or Family Care: No Living arrangements: alone Occupation/Education: retired Gender identity (if verbalized by the patient): Female Spiritual care concerns: No Exam Narrative: APPEARANCE: frail Head: atraumatic. EYES: EOMI, NOSE: Atraumatic NECK: Trachea midline RESPIRATORY: Tachypneic, hypoxic on room air, clear to auscultation CARDIOVASCULAR: RRR, no peripheral edema ABDOMINAL: Non-distended MUSCULOSKELETAl: No obvious deformities NEURO: Alert. Moving 4/4 extremities SKIN:: Warm, dry. Normal color PSYCHIATRIC: Normal affect Course Vital Signs Vital signs: Vital Signs Temperature 98.3 F 0
[2024-02-10] MEDS: FUROSEMIDE INJ 40 MG/4 ML VIAL IV PUSH (19:07)
--- NOTE | 2024-02-10 20:56 | PM.IMHP ---
H&P: HPI History of Present Illness Date/Time: 02/10/24 20:56 Chief Complaint: Complains of shortness of breath difficulty breathing. Narrative: Patient 83-year-old female with history of atrial fibrillation came to the hospital complaining of severe shortness of breath patient recently underwent cardioversion for atrial fibrillation but this morning she noted that she was back in AFib with shortness of breath. Patient recently diagnosed with pulmonary embolism and also been taking Eliquis religiously. No chest pain no nausea no vomiting no dizziness. Few episode of racing heartbeats but medically stable now follows up with primary care physician routinely. . Patient was at rehab program in October 2019 for where patient was treated for urinary tract infection patient has been on metoprolol 50 mg twice daily and also been taking Eliquis routinely. No history of any leg edema no bleeding no other problem. Patient currently on ascorbic acid, aspirin, calcium, Sinemet, Dilantin, Celebrex, Eliquis, hydrochlorothiazide, levothyroxine and multivitamin Review of Systems Review of Systems: All systems reviewed & are unremarkable except as noted in HPI and below PMFSH Past Medical History Medical History Afib Arthritis of both knees Arthritis of left hip BMI 23.0-23.9, adult Cerebral palsy With right-sided weakness and spasticity. Constipation Hypertension Hypothyroidism Left knee DJD Left leg pain Low vitamin D level Lumbar radiculopathy Osteoarthritis of left hip Pulmonary embolism Diagnosed 11/29/23 Seizure disorder Trochanteric bursitis, left hip Unstable gait Vitamin D deficiency Vitamin D deficiency Wears glasses Surgical History Surgical History History of appendectomy History of breast biopsy Bilateral, with benign pathology. 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 She lives in a senior apartment in [place], [place]. She has no biological children. She is a lifelong nonsmoker and denies alcohol and drug use. She designates her stepdaughter, Nighat Francis and her friend Karyna Domínguez as her surrogate decision makers and she wishes to be a full code. Smoking status: Never smoker Second hand tobacco smoke exposure: No Alcohol intake: never Substance use: never Lack of Transportation: No Lack of Food: Never True Current Housing: I Have Housing Concerned About Future Housing: No Difficulty Paying Gas/Electric Bills: No Difficulty Paying for Meds: No Currently Unemployed: No Education: High School Diploma/GED Difficulty w/ Childcare or Family Care: No Living arrangements: alone Occupation/Education: retired Gender identity (if verbalized by the patient): Female Spiritual care concerns: No Meds Home Medications and Allergies Home Medications Medication Instructions Recorded Confirmed Type acetaminophen 500 mg tablet 500 mg PO Q6H PRN pain #120 tabs 04/18/22 02/06/24 Rx (Tylenol Extra Strength) docusate sodium 100 mg tablet 100 - 200 mg PO QHS #90 tabs 04/18/22 02/06/24 Rx cholecalciferol (vitamin D3) 25 25 mcg PO DAILY 01/24/23 02/06/24 History mcg (1,000 unit) capsule phenobarbital 30 mg tablet 30 mg PO TID #90 tabs 08/25/23 02/06/24 Rx Dilantin Extended 100 mg capsule 100 m
[2024-02-10 21:03] VITALS: BP 126/73; PULSE 91; RESP 16; O2SAT 99
[2024-02-10] MEDS: AZITHROMYCIN 500 MG/NS 250 ML 500 MG/250 ML BAG 250 MG IVPB (22:30)
--- NOTE | 2024-02-10 22:31 | ADMGEN ---
This patient, Maame Frias, was admitted to 3 [facility] Surg Room 303-01. Patient/family oriented to hospital policies and general routines including ID bracelet, bed and alarms, visiting hours, pain management, procedures, bathroom and other care routines, personal items, smoking policy, room service/diet, and visiting hours. Information on how to activate the Rapid Response Team has been discussed. Patient/Family are encouraged to report perceived risks to care and to ask questions if they do not understand what they are told or what they should do.
[2024-02-10 22:33] VITALS: BP 129/67; PULSE 82; RESP 20; TEMP 36.4; O2SAT 96
[2024-02-10 23:22] VITALS: O2SAT 94
[2024-02-10 23:23] LABS: Basophils Absolute Auto 0.1 K/mm3 (0.0-0.1); Basophils Percent Auto 0.9 % (0.2-1.2); Eosinophils Absolute Auto 0.4 K/mm3 (0-0.3); Eosinophils Percent Auto 5.4 % (0-4.4); Hematocrit 39.4 % (37.0-47.0); Hemoglobin 12.9 g/dL (12.0-15.0); Immature Granulocyte Absolute 0.02 K/mm3 (0.00-0.031); Immature Granulocyte Percent A 0.3 % (0-0.5); Lymphocytes Absolute Auto 1.67 K/mm3 (0.9-3.2); Mean Corpuscular HGB Conc 32.7 g/dl (32-36); Mean Corpuscular Hemoglobin 33.2 pg (26-34); Mean Corpuscular Volume 101.3 fl (80-100); Mean Platelet Volume 9.6 fl (7.4-10.4); Monocytes Absolute Auto 0.5 K/mm3 (0.1-0.6); Monocytes Percent Auto 8.1 % (2.6-8.5); Neutrophils Percent Auto 60.3 % (45.5-73.1); Platelet Count Result 233 k/mm3 (150-375); Red Blood Count 3.89 M/mm3 (4.2-5.4); Red Cell Distribution Width 14.5 % (11.5-14.5); White Blood Count 6.7 K/mm3 (4.5-10.0)
[2024-02-10 23:30] VITALS: BMI 24.3
[2024-02-11] VITALS (13 sets, daily range): BP systolic 109–119; BP diastolic 59–69; PULSE 64–139; RESP 14–22; TEMP 36.2–36.8; O2SAT 92–95
[2024-02-11] MEDS: dilTIAZem HCL CD 120 MG CAP.24HR PO (01:46)
--- NOTE | 2024-02-11 08:47 | PM.IMPN ---
Progress Note: A&P Assessment and Plan (1) Atrial fibrillation with rapid ventricular response: Code(s): I48.91 - Unspecified atrial fibrillation Status: Acute Assessment and Plan: Patient was recently cardioverted on 01/08/2024 and was successful at that time however she presented this admission with shortness of breath and was found to be in AFib RVR on arrival to the hospital Heart rate sustaining 130s at rest, with activity she is bouncing to 150-170 She received 120 mg p.o. Cardizem in the ED This morning she was given 1 time dose of 5 mg IV metoprolol followed by her morning dose metoprolol 50 mg Cardiology was consulted and patient was started on Sotalol 80 mg BID Followed by Dr. Marin outpatient (2) Acute hypoxic respiratory failure: Code(s): J96.01 - Acute respiratory failure with hypoxia Status: Acute Assessment and Plan: Initial heart rate 118, pulse ox 91 on room air, no hypoxia noted Patient was placed on 2 L nasal cannula with oxygen sat now between 96-99% Chest x-ray showing diffuse mild interstitial bilateral perihilar and basilar airspace opacities most likely due mild pulmonary edema versus pneumonia, small bilateral pleural effusions Patient was given 1 dose of 40 mg IV Lasix in the ED ProBNP initially 1930, troponin was negative Recently diagnosed with a PE currently on Xarelto Currently on room air (3) CHF (congestive heart failure): Qualifiers: Heart failure chronicity: acute on chronic Heart failure type: right-sided Qualified Code(s): I50.813 - Acute on chronic right heart failure Code(s): I50.9 - Heart failure, unspecified Status: Acute Assessment and Plan: ProBNP initially 1930, troponin was negative Patient was given 1 time dose of 40 mg IV Lasix in the ED (4) Urinary retention: Code(s): R33.9 - Retention of urine, unspecified Status: Resolved Assessment and Plan: Patient was found to have 400ml urine in bladder, fried was placed. She was started on Flomax last admission for same issue. Patient stopped taking Flomax at home because she states that she was not able to urinate at all while on it. She still states that she has had trouble initiating urine flow Will start Doxazosin today Urology consulted. Time Spent With Patient Time with patient: Greater than 35 minutes Subjective Date/time seen: 02/11/24 08:47 Interval history: This is an 83-year-old female who presented to the hospital on 02/10/2024 with complaints of shortness of breath/dyspnea. Workup in the hospital included a chest x-ray which showed diffuse mild interstitial in bilateral perihilar and basilar airspace opacities most likely mild pulmonary edema versus pneumonia, small bilateral pleural effusions. Initial labs show a normal white blood cell count of 5.9, AST 37, ALT 411, troponin was negative, proBNP 1930. Cardiology was consulted. Patient was given 40 mg of IV push Lasix, Rocephin, 120 mg of diltiazem p.o. while in the ED. On examination today patient is alert and oriented x3, lying in the bed. Heart rate this morning was reported to be in the 130s but does bounce up to the 150s to 160s with activity. I instructed the nurse this morning to give 5 mg of IV metoprolol and give her her 50 mg oral metoprolol. She is now down to 105. Patient sees Dr. Marin on an outpatient basis for cardiology. She was noted to have urinary retention again this admission with 400ml noted in bladder. A fried catheter was placed. Patient states she stopped taking the Flomax at home because she was not able to pee at all when taking it. After she stopped taking it she stated that she was able to urinate but it was difficult. We will go ahead and consult Urology considering this is the second time she has had urinary retention. We will start Doxazosin today. Review of Systems Review of Systems: All systems reviewed & are unremarkable except as noted in HPI
--- NOTE | 2024-02-11 09:06 | PM.CNCAR ---
Assessment and Plan Assessment and plan (1) A-fib: Qualifiers: Atrial fibrillation type: paroxysmal Qualified Code(s): I48.0 - Paroxysmal atrial fibrillation Code(s): I48.91 - Unspecified atrial fibrillation Status: Acute (2) CHF (congestive heart failure): Qualifiers: Heart failure chronicity: acute on chronic Heart failure type: right-sided Qualified Code(s): I50.813 - Acute on chronic right heart failure Code(s): I50.9 - Heart failure, unspecified Status: Acute Plan This is an 83-year-old lady with a history of symptomatic recurrent atrial fibrillation. She developed an episode of persistent atrial fib 2 months ago concurrent with a a pulmonary embolism. Despite advancing her metoprolol and cardioverting her electrically 1 month persistent in in atrial fibrillation with which she is symptomatic as described above. She remains compliant with her the systemic anticoagulation. Because her atrial fib is not well tolerated need to try another attempt at restoring sinus rhythm. I am going to exertion her from metoprolol to sotalol since she has hyperdynamic left ventricular systolic function. She will take that medication at least for couple of days and then anticipate needing to make another attempt at DC cardioversion before discharge. Hopefully more aggressive antiarrhythmic therapy will keep her in sinus rhythm. If it does not then consulting electrophysiology the next step. Renzo Grady MD [facility] History of Present Illness History of Present Illness Consult date/time: 02/11/24 09:06 Reason For Visit: Respiratory failure Narrative: This is a very pleasant 83-year-old lady who seen by my partner, Dr. Marin who has a history of atrial fibrillation. I am seeing the patient today at the request of the hospitalist for evaluation of a symptomatic recurrence of her arrhythmia. She is a lady that has a history of she was hospitalized here in November of this year with a episode of atrial fib that was found to be coincident with a pulmonary embolism. The patient had a hip replacement operation done in October and this PE was felt to be likely complication of that operation. In any event at that time she was treated with rate control anticoagulation since the onset of the arrhythmia was not clear. She was rate controlled with metoprolol and anticoagulated with apixaban. She was then brought in as an outpatient in the middle of December L cardioversion which was done successfully by Dr. Marin however the following day her electrocardiogram showed her to be back in atrial fibrillation. She has not seen my partner since that event and she comes into the hospital now reporting the gradual onset of worsening shortness of breath with modest activity. She is not experiencing any orthopnea PND or edema. Her echocardiogram done in November at the time of the initial consultation described above demonstrated hyperdynamic appearing left ventricular systolic function and significant atrial dilation. There was no significant valvular dysfunction. She is currently taking metoprolol 50 mg q.8 hours and has a resting heart rate of approximately 120. She otherwise is comfortable at this time wearing nasal cannula oxygen and appears to be in no immediate distress. Her chest modest enlargement of the cardiac silhouette some bibasilar edema and small bilateral pleural effusions. Review of Systems Constitutional: Constitutional: Reports no additional constitutional complaints Eyes: Eyes: Reports no additional eye complaints ENT: Reports system reviewed and no additional complaints, except as documented Cardiovascular: Cardiovascular: Reports palpitations Respiratory: Respiratory: Reports dyspnea Gastrointestinal: Gastrointestinal: Reports no additional gastrointestinal complaints Musculoskeletal: Musculoskeletal: Reports no additional musculoskeletal complaints Integumentary/Breasts: Skin/Breast:
[2024-02-11 09:30] LABS: Basophils Absolute Auto 0.1 K/mm3 (0.0-0.1); Basophils Percent Auto 0.9 % (0.2-1.2); Eosinophils Absolute Auto 0.1 K/mm3 (0-0.3); Eosinophils Percent Auto 2.1 % (0-4.4); Hematocrit 37.7 % (37.0-47.0); Hemoglobin 12.4 g/dL (12.0-15.0); Immature Granulocyte Absolute 0.02 K/mm3 (0.00-0.031); Immature Granulocyte Percent A 0.3 % (0-0.5); Lymphocytes Absolute Auto 1.08 K/mm3 (0.9-3.2); Mean Corpuscular HGB Conc 32.9 g/dl (32-36); Mean Corpuscular Volume 100.3 fl (80-100); Mean Platelet Volume 9.6 fl (7.4-10.4); Monocytes Absolute Auto 0.6 K/mm3 (0.1-0.6); Monocytes Percent Auto 8.6 % (2.6-8.5); Neutrophils Absolute Auto 4.9 K/mm3 (1.3-6.7); Neutrophils Percent Auto 72.1 % (45.5-73.1); Platelet Count Result 198 k/mm3 (150-375); Red Blood Count 3.76 M/mm3 (4.2-5.4); Red Cell Distribution Width 14.3 % (11.5-14.5); White Blood Count 6.8 K/mm3 (4.5-10.0)
[2024-02-11 09:41] LABS: Alanine Aminotransferase 27 U/L (6-35); Albumin Level 4.2 g/dL (3.5-5.1); Alkaline Phosphatase 98 U/L (38-126); Anion Gap 9 mmol/L (4-12); Aspartate Amino Transferase 34 U/L (14-36); Bilirubin,Total 0.4 mg/dL (0.2-1.3); Blood Urea Nitrogen 22 mg/dL (7-17); Calcium 8.7 mg/dL (8.4-10.2); Carbon Dioxide 24 mmol/L (22-30); Chloride 107 mmol/L (98-107); Estimated CRCL calculation 40 ml/min; Estimated Glomerular Filt Rate > 60; Glucose 168 mg/dL (65-110); Potassium 4.3 mmol/L (3.4-5.0); Sodium 140 mmol/L (137-145)
[2024-02-11] MEDS: LEVOTHYROXINE SODIUM 75 MCG TABLET PO (09:45)
[2024-02-11] MEDS: APIXABAN 5 MG TABLET PO ×2 (09:46→20:25)
[2024-02-11] MEDS: CARBIDOPA/LEVODOPA 25/100 MG TABLET 1 TABLET BY MOUTH ×3 (09:46→20:26)
[2024-02-11] MEDS: CALCIUM/VITAMIN D 500 MG/5 MCG (200 I.U.) TABLET PO ×2 (09:46→17:26)
[2024-02-11] MEDS: PANTOPRAZOLE 40 MG TABLET PO (09:46)
[2024-02-11] MEDS: FLUTICASONE PROPIONATE 0.05% NA SPR 16 GM BTL (*BKC) 2 SPRAY NASAL (09:46)
[2024-02-11] MEDS: CHOLECALCIFEROL 1,000 UNITS TABLET 1000 UNITS PO (09:47)
[2024-02-11] MEDS: PHENobarbitaL (*CRX) 30 MG TABLET PO ×3 (09:47→17:26)
[2024-02-11] MEDS: CYANOCOBALAMIN 1,000 MCG TABLET 1000 MCG PO (09:47)
[2024-02-11] MEDS: SOTALOL HCL 80 MG TABLET PO ×2 (09:48→20:26)
[2024-02-11] MEDS: METOPROLOL TARTRATE INJ 5 MG/5 ML VIAL IV PUSH (09:48)
[2024-02-11] MEDS: CARBIDOPA/LEVODOPA 12.5/50 MG TABLET 1 TABLET PO (09:49)
--- NOTE | 2024-02-11 14:11 | PHAR ---
Dilantin brand name 100mg capsules identified in pharmacy and returned to [address] [place] [address] nursing unit
[2024-02-11] MEDS: AZITHROMYCIN 500 MG/NS 250 ML 500 MG/250 ML BAG 250 MG IVPB (20:25)
[2024-02-12] VITALS (11 sets, daily range): BP systolic 104–122; BP diastolic 61–66; PULSE 65–98; RESP 13–24; TEMP 36–36.8; O2SAT 92–93
[2024-02-12 06:17] LABS: Basophils Absolute Auto 0.1 K/mm3 (0.0-0.1); Basophils Percent Auto 0.9 % (0.2-1.2); Eosinophils Absolute Auto 0.4 K/mm3 (0-0.3); Eosinophils Percent Auto 6.2 % (0-4.4); Hematocrit 35.2 % (37.0-47.0); Hemoglobin 11.6 g/dL (12.0-15.0); Immature Granulocyte Absolute 0.02 K/mm3 (0.00-0.031); Immature Granulocyte Percent A 0.4 % (0-0.5); Lymphocytes Absolute Auto 1.09 K/mm3 (0.9-3.2); Lymphocytes Percent Auto 19.2 % (18.3-44.2); Mean Corpuscular Hemoglobin 33.2 pg (26-34); Mean Corpuscular Volume 100.9 fl (80-100); Mean Platelet Volume 9.8 fl (7.4-10.4); Monocytes Absolute Auto 0.6 K/mm3 (0.1-0.6); Monocytes Percent Auto 11.1 % (2.6-8.5); Neutrophils Absolute Auto 3.5 K/mm3 (1.3-6.7); Neutrophils Percent Auto 62.2 % (45.5-73.1); Platelet Count Result 216 k/mm3 (150-375); Red Blood Count 3.49 M/mm3 (4.2-5.4); Red Cell Distribution Width 14.6 % (11.5-14.5); White Blood Count 5.7 K/mm3 (4.5-10.0)
[2024-02-12] MEDS: CARBIDOPA/LEVODOPA 12.5/50 MG TABLET 1 TABLET PO ×2 (06:18→09:31)
[2024-02-12] MEDS: CARBIDOPA/LEVODOPA 25/100 MG TABLET 1 TABLET BY MOUTH ×4 (06:19→21:26)
[2024-02-12] MEDS: LEVOTHYROXINE SODIUM 75 MCG TABLET PO (06:19)
[2024-02-12 06:26] LABS: Alanine Aminotransferase 11 U/L (6-35); Albumin Level 3.5 g/dL (3.5-5.1); Alkaline Phosphatase 91 U/L (38-126); Anion Gap 6 mmol/L (4-12); Aspartate Amino Transferase 33 U/L (14-36); Bilirubin,Total 0.3 mg/dL (0.2-1.3); Blood Urea Nitrogen 21 mg/dL (7-17); Calcium 8.4 mg/dL (8.4-10.2); Carbon Dioxide 24 mmol/L (22-30); Chloride 108 mmol/L (98-107); Estimated CRCL calculation 40 ml/min; Estimated Glomerular Filt Rate > 60; Glucose 104 mg/dL (65-110); Potassium 4.2 mmol/L (3.4-5.0); Sodium 138 mmol/L (137-145)
--- NOTE | 2024-02-12 09:09 | ECG_ITS ---
SEE SCANNED COPY FOR CONFIRMED REPORT MTDD
[2024-02-12] MEDS: CALCIUM/VITAMIN D 500 MG/5 MCG (200 I.U.) TABLET PO ×2 (09:25→17:37)
[2024-02-12] MEDS: PHENobarbitaL (*CRX) 30 MG TABLET PO ×3 (09:25→17:37)
[2024-02-12] MEDS: PANTOPRAZOLE 40 MG TABLET PO (09:25)
[2024-02-12] MEDS: DOXAZOSIN MESYLATE 2 MG TABLET PO (09:25)
[2024-02-12] MEDS: SOTALOL HCL 80 MG TABLET PO ×2 (09:25→21:25)
[2024-02-12] MEDS: APIXABAN 5 MG TABLET PO ×2 (09:25→21:26)
[2024-02-12] MEDS: FLUTICASONE PROPIONATE 0.05% NA SPR 16 GM BTL (*BKC) 2 SPRAY NASAL (09:25)
[2024-02-12] MEDS: CHOLECALCIFEROL 1,000 UNITS TABLET 1000 UNITS PO (09:25)
[2024-02-12 09:39] LABS: Magnesium 1.9 mg/dL (1.6-2.3)
--- NOTE | 2024-02-12 10:37 | PM.PNCARD ---
Progress Note: A&P Assessment and Plan (1) A-fib: Qualifiers: Atrial fibrillation type: paroxysmal Qualified Code(s): I48.0 - Paroxysmal atrial fibrillation Code(s): I48.91 - Unspecified atrial fibrillation Status: Acute Assessment and Plan: Symptomatic recurrent atrial fibrillation despite cardioversion a month ago. Now being treated with sotalol. Remains in atrial fibrillation at this point. Obtain EKG post sotalol administration x 5 doses. EKG ordered this morning at 0900 has not yet been performed. If QTc >500 hold sotalol and notify provider Daily BMP and Mag Continuous telemetry. No arrhythmias so far. If she remains in atrial fibrillation tomorrow, will plan for DCCV (2) CHF (congestive heart failure): Qualifiers: Heart failure chronicity: acute on chronic Heart failure type: right-sided Qualified Code(s): I50.813 - Acute on chronic right heart failure Code(s): I50.9 - Heart failure, unspecified Status: Acute Assessment and Plan: Small pleural effusions on CXR. She feels short of breath and still has pulmonary rales. Will start furosemide 40mg IV daily. Subjective Date/time seen: 02/12/24 10:37 Interval history: Cardiology follow up for atrial fibrillation She is complaining of shortness of breath today. She was unable to sleep lying down last night because it was difficult for her to breathe. Also complaining of cough. Does not have palpitations or chest pain. Tele: Afib rate controlled at times with intermittent RVR in the 130's-140's Review of Systems Constitutional: Constitutional: Reports no additional constitutional complaints Eyes: Eyes: Reports no additional eye complaints ENT: Reports system reviewed and no additional complaints, except as documented Cardiovascular: Cardiovascular: Reports palpitations and Reports dyspnea Respiratory: Respiratory: Reports dyspnea Gastrointestinal: Gastrointestinal: Reports no additional gastrointestinal complaints Musculoskeletal: Musculoskeletal: Reports no additional musculoskeletal complaints Integumentary/Breasts: Skin/Breast: Reports system reviewed and no additional complaints, except as docu Neurologic: Reports system reviewed and no additional complaints, except as documented Endocrine: Endocrine: Reports no additional endocrine complaints and Reports palpitations Hematologic/Lymphatic: Hematologic/Lymphatic: Reports no additional hematologic/lymphatic complaints Allergic/Immunologic: Allergic/Immunologic: Reports no additional allergic/immunologic complaints Exam Const: General: comfortable, no acute distress, alert, awake and thin HENMT: Mouth: Yes moist mucous membranes Eyes: Sclera: sclerae normal Neck: Neck: supple and JVD Resp: Effort & Inspection: normal respiratory effort Auscultation: not clear to auscultation bilaterally and rales bilateral Cardio: Rate: tachycardic Rhythm: abnormal rhythm irregularly irregular GI: Auscultation: normal bowel sounds Skin: General skin exam: normal color Neuro: Other: Alert and oriented x3 Extrem: Other: Good perfusion, no edema Objective Data Vital Signs Vital Signs: Vital Signs - 24 hr 02/11/24 12:00 02/11/24 14:08 02/11/24 16:00 Temperature 36.8 C Pulse Rate 132 H 64 95 Respiratory Rate 19 Blood Pressure 109/59 L Pulse Oximetry 95 Oxygen Delivery Fraction of Inspired Oxygen 02/11/24 20:26 02/11/24 21:20 02/11/24 20:00 Temperature 36.2 C L Pulse Rate 89 86 Respiratory Rate 14 Blood Pressure 114/63 Pulse Oximetry 92 Oxygen Delivery Room Air Fraction of Inspired Oxygen 02/11/24 20:00 02/12/24 00:00 02/12/24 04:00 Temperature Pulse Rate 86 98 94 Respiratory Rate Blood Pressure Pulse Oximetry Oxygen Delivery Fraction of Inspired Oxygen 02/12/24 05:49 02/12/24 07:44 Temperature 36.8 C Pulse Rate 75 Respiratory Rate 1
--- NOTE | 2024-02-12 12:05 | PM.IMPN ---
Progress Note: A&P Assessment and Plan (1) Atrial fibrillation with rapid ventricular response: Code(s): I48.91 - Unspecified atrial fibrillation Status: Acute Assessment and Plan: (2) Acute hypoxic respiratory failure: Code(s): J96.01 - Acute respiratory failure with hypoxia Status: Acute Assessment and Plan: (3) CHF (congestive heart failure): Qualifiers: Heart failure chronicity: acute on chronic Heart failure type: right-sided Qualified Code(s): I50.813 - Acute on chronic right heart failure Code(s): I50.9 - Heart failure, unspecified Status: Acute Assessment and Plan: (4) Urinary retention: Code(s): R33.9 - Retention of urine, unspecified Status: Resolved Plan This is an 83-year-old female who presented to the hospital on 02/10/2024 with complaints of shortness of breath/dyspnea. Workup in the hospital included a chest x-ray which showed diffuse mild interstitial in bilateral perihilar and basilar airspace opacities most likely mild pulmonary edema versus pneumonia, small bilateral pleural effusions. Initial labs show a normal white blood cell count of 5.9, AST 37, ALT 411, troponin was negative, proBNP 1930. Cardiology was consulted. Patient was given 40 mg of IV push Lasix, Rocephin, 120 mg of diltiazem p.o. while in the ED.Has started on sotalol. Metoprolol has been stopped. Also had urinary retention and Otto has been placed. Patient stopped taking the Flomax at home. Urology has been consulted due to urinary retention.Started back on doxazosin. ProBNP 1930 troponin is negative. Mild hypoxia on admission now off oxygen improved with diuresis. Recently diagnosed with PE currently onEliquis A. fib with RVR recently cardioverted on 01/08/24. Currently on sotalol Recent echo with normal EF mild to moderate MR. Ongoing shortness of breath suspect A. fib related versus acute on chronic CHF:Diuresis him and started. Will check x-ray chest again. DVT prophylaxis Eliquis Subjective Date/time seen: 02/12/24 12:05 Interval history: This is an 83-year-old female who presented to the hospital on 02/10/2024 with complaints of shortness of breath/dyspnea. Workup in the hospital included a chest x-ray which showed diffuse mild interstitial in bilateral perihilar and basilar airspace opacities most likely mild pulmonary edema versus pneumonia, small bilateral pleural effusions. Initial labs show a normal white blood cell count of 5.9, AST 37, ALT 411, troponin was negative, proBNP 1930. Cardiology was consulted. Patient was given 40 mg of IV push Lasix, Rocephin, 120 mg of diltiazem p.o. while in the ED.Has started on sotalol. Metoprolol has been stopped. Also had urinary retention and Otto has been placed. Patient stopped taking the Flomax at home. Urology has been consulted due to urinary retention. Review of Systems Review of Systems: All systems reviewed & are unremarkable except as noted in HPI and below Exam Narrative: General: In no acute distress, well nourished Head: atraumatic, no encephalopathy Eyes: EOMI, PERRLA, sclera clear ENT: moist mucous membranes, nasal passages clear Neck: supple, no JVD, no adenopathy, trachea midline Cardiac: Normal S1 and S2. Irregular rate and rhythm, Tachycardic,No murmur, gallops or friction rubs, peripheral pulses intact. Respiratory: Lungs clear to auscultation, no adventitious lung sounds, currently on room air. Gastrointestinal: soft, non-distended, non-tender, normoactive bowel sounds. : voiding without difficulty. Extremities: moves all extremities well, no edema, good ROM, strength 5/5 Skin: clean, dry, intact. No wounds or lesions. Neuro: Alert and oriented x4, cranial nerves intact, no neuro deficits. Psych: normal mood, normal affect, interactive Objective Data Vital Signs Vital Signs: Vital Signs - 24 hr 02/11/24 14:08 02/11/24 16:00 02/11/24 20:26 Temperature 9
[2024-02-12] MEDS: FUROSEMIDE INJ 40 MG/4 ML VIAL IV PUSH (12:53)
[2024-02-12] MEDS: AZITHROMYCIN 500 MG/NS 250 ML 500 MG/250 ML BAG 250 MG IVPB (21:23)
--- NOTE | 2024-02-12 22:09 | ECG_ITS ---
SEE SCANNED COPY FOR CONFIRMED REPORT MTDD
[2024-02-13] VITALS (16 sets, daily range): BP systolic 102–140; BP diastolic 54–108; PULSE 59–135; RESP 15–22; TEMP 36.1–36.6; O2SAT 89–95
[2024-02-13 05:42] LABS: Basophils Percent Auto 0.7 % (0.2-1.2); Eosinophils Absolute Auto 0.2 K/mm3 (0-0.3); Eosinophils Percent Auto 4.1 % (0-4.4); Hematocrit 35.6 % (37.0-47.0); Hemoglobin 11.9 g/dL (12.0-15.0); Immature Granulocyte Absolute 0.01 K/mm3 (0.00-0.031); Immature Granulocyte Percent A 0.2 % (0-0.5); Lymphocytes Absolute Auto 1.22 K/mm3 (0.9-3.2); Lymphocytes Percent Auto 20.9 % (18.3-44.2); Mean Corpuscular HGB Conc 33.4 g/dl (32-36); Mean Corpuscular Hemoglobin 33.5 pg (26-34); Mean Corpuscular Volume 100.3 fl (80-100); Mean Platelet Volume 9.6 fl (7.4-10.4); Monocytes Absolute Auto 0.6 K/mm3 (0.1-0.6); Monocytes Percent Auto 10.8 % (2.6-8.5); Neutrophils Absolute Auto 3.7 K/mm3 (1.3-6.7); Neutrophils Percent Auto 63.3 % (45.5-73.1); Platelet Count Result 196 k/mm3 (150-375); Red Blood Count 3.55 M/mm3 (4.2-5.4); Red Cell Distribution Width 14.2 % (11.5-14.5); White Blood Count 5.8 K/mm3 (4.5-10.0)
[2024-02-13 05:53] LABS: Alanine Aminotransferase 7 U/L (6-35); Albumin Level 3.5 g/dL (3.5-5.1); Alkaline Phosphatase 88 U/L (38-126); Anion Gap 6 mmol/L (4-12); Aspartate Amino Transferase 26 U/L (14-36); Bilirubin,Total 0.3 mg/dL (0.2-1.3); Blood Urea Nitrogen 23 mg/dL (7-17); Calcium 8.6 mg/dL (8.4-10.2); Carbon Dioxide 23 mmol/L (22-30); Chloride 107 mmol/L (98-107); Estimated CRCL calculation 36 ml/min; Estimated Glomerular Filt Rate 60; Glucose 102 mg/dL (65-110); Magnesium 1.9 mg/dL (1.6-2.3); Sodium 136 mmol/L (137-145)
[2024-02-13] MEDS: CARBIDOPA/LEVODOPA 25/100 MG TABLET 1 TABLET BY MOUTH ×4 (06:11→21:54)
[2024-02-13] MEDS: CARBIDOPA/LEVODOPA 12.5/50 MG TABLET 1 TABLET PO ×2 (06:11→10:49)
[2024-02-13] MEDS: LEVOTHYROXINE SODIUM 75 MCG TABLET PO (06:11)
--- NOTE | 2024-02-13 07:51 | P.PNIM_ITS ---
Progress Note: A&P Assessment and Plan (1) Atrial fibrillation with rapid ventricular response: Code(s): I48.91 - Unspecified atrial fibrillation Status: Acute Assessment and Plan: 02/11/24: * Patient was recently cardioverted on 01/08/2024 and was successful at that time however she presented this admission with shortness of breath and was found to be in AFib RVR on arrival to the hospital * Heart rate sustaining 130s at rest, with activity she is bouncing to 150-170 * She received 120 mg p.o. Cardizem in the ED * This morning she was given 1 time dose of 5 mg IV metoprolol followed by her morning dose metoprolol 50 mg * Cardiology was consulted and patient was started on Sotalol 80 mg BID * Followed by Dr. Marin outpatient 02/13/24: * Patient remains with HR of 118-134 * Cardiology following Patient was cardioverted today in cardiac director of cardiac cath lab and is now back in a normal sinus rhythm * Currently on Sotalol and plan is to continue that (2) Acute hypoxic respiratory failure: Code(s): J96.01 - Acute respiratory failure with hypoxia Status: Acute Assessment and Plan: 02/11/24: * Initial heart rate 118, pulse ox 91 on room air, no hypoxia noted * Patient was placed on 2 L nasal cannula with oxygen sat now between 96-99% * Chest x-ray showing diffuse mild interstitial bilateral perihilar and basilar airspace opacities most likely due mild pulmonary edema versus pneumonia, small bilateral pleural effusions * Patient was given 1 dose of 40 mg IV Lasix in the ED * ProBNP initially 1930, troponin was negative * Recently diagnosed with a PE currently on Xarelto * Currently on room air 02/13/24: * No change to current treatment plan (3) CHF (congestive heart failure): Qualifiers: Heart failure chronicity: acute on chronic Heart failure type: right- sided Qualified Code(s): I50.813 - Acute on chronic right heart failure Code(s): I50.9 - Heart failure, unspecified Status: Acute Assessment and Plan: 02/11/24: * ProBNP initially 1930, troponin was negative * Patient was given 1 time dose of 40 mg IV Lasix in the ED 02/13/24: * euvolemic today (4) Urinary retention: Code(s): R33.9 - Retention of urine, unspecified Status: Resolved Assessment and Plan: 02/11/24: * Patient was found to have 400ml urine in bladder, fried was placed. She was started on Flomax last admission for same issue. Patient stopped taking Flomax at home because she states that she was not able to urinate at all while on it. She still states that she has had trouble initiating urine flow * Will start Doxazosin today * Urology consulted. 02/12/24: * Continue current treatment plan Time Spent With Patient Time with patient: Greater than 35 minutes Subjective Date/time seen: 02/13/24 07:51 Interval history: Interval history: This is an 83-year-old female who presented to the hospital on 02/10/2024 with complaints of shortness of breath/dyspnea. Workup in the hospital included a chest x-ray which showed diffuse mild interstitial in bilateral perihilar and basilar airspace opacities most likely mild pulmonary edema versus pneumonia, small bilateral pleural effusions. Initial labs show a normal white blood cell count of 5.9, AST 37, ALT 411, troponin was negative, proBNP 1930. Cardiology was consulted. Patient was given 40 mg of IV push Lasix, Rocephin, 120 mg of diltiazem p.o. while in the ED. On examination today patient is alert and oriented x3, lying in the bed. Heart rate this morning was reported to be in the 130s but does bounce u
--- NOTE | 2024-02-13 07:51 | PM.IMPN ---
Progress Note: A&P Assessment and Plan (1) Atrial fibrillation with rapid ventricular response: Code(s): I48.91 - Unspecified atrial fibrillation Status: Acute Assessment and Plan: 02/11/24: Patient was recently cardioverted on 01/08/2024 and was successful at that time however she presented this admission with shortness of breath and was found to be in AFib RVR on arrival to the hospital Heart rate sustaining 130s at rest, with activity she is bouncing to 150-170 She received 120 mg p.o. Cardizem in the ED This morning she was given 1 time dose of 5 mg IV metoprolol followed by her morning dose metoprolol 50 mg Cardiology was consulted and patient was started on Sotalol 80 mg BID Followed by Dr. 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 and is now back in a normal sinus rhythm Currently on Sotalol and plan is to continue that (2) Acute hypoxic respiratory failure: Code(s): J96.01 - Acute respiratory failure with hypoxia Status: Acute Assessment and Plan: 02/11/24: Initial heart rate 118, pulse ox 91 on room air, no hypoxia noted Patient was placed on 2 L nasal cannula with oxygen sat now between 96-99% Chest x-ray showing diffuse mild interstitial bilateral perihilar and basilar airspace opacities most likely due mild pulmonary edema versus pneumonia, small bilateral pleural effusions Patient was given 1 dose of 40 mg IV Lasix in the ED ProBNP initially 1930, troponin was negative Recently diagnosed with a PE currently on Xarelto Currently on room air 02/13/24: No change to current treatment plan (3) CHF (congestive heart failure): Qualifiers: Heart failure chronicity: acute on chronic Heart failure type: right-sided Qualified Code(s): I50.813 - Acute on chronic right heart failure Code(s): I50.9 - Heart failure, unspecified Status: Acute Assessment and Plan: 02/11/24: ProBNP initially 1930, troponin was negative Patient was given 1 time dose of 40 mg IV Lasix in the ED 02/13/24: euvolemic today (4) Urinary retention: Code(s): R33.9 - Retention of urine, unspecified Status: Resolved Assessment and Plan: 02/11/24: Patient was found to have 400ml urine in bladder, fried was placed. She was started on Flomax last admission for same issue. Patient stopped taking Flomax at home because she states that she was not able to urinate at all while on it. She still states that she has had trouble initiating urine flow Will start Doxazosin today Urology consulted. 02/12/24: Continue current treatment plan Time Spent With Patient Time with patient: Greater than 35 minutes Subjective Date/time seen: 02/13/24 07:51 Interval history: Interval history: This is an 83-year-old female who presented to the hospital on 02/10/2024 with complaints of shortness of breath/dyspnea. Workup in the hospital included a chest x-ray which showed diffuse mild interstitial in bilateral perihilar and basilar airspace opacities most likely mild pulmonary edema versus pneumonia, small bilateral pleural effusions. Initial labs show a normal white blood cell count of 5.9, AST 37, ALT 411, troponin was negative, proBNP 1930. Cardiology was consulted. Patient was given 40 mg of IV push Lasix, Rocephin, 120 mg of diltiazem p.o. while in the ED. On examination today patient is alert and oriented x3, lying in the bed. Heart rate this morning was reported to be in the 130s but does bounce up to the 150s to 160s with activity. I instructed the nurse this morning to give 5 mg of IV metoprolol and give her her 50 mg oral metoprolol. She is now down to 105. Patient sees Dr. Marin on an outpatient basis for cardiology. She was noted to have urinary retention again this admission with 400ml noted in bladder. A fried catheter was placed. Patient states she stopped taking the Rob
--- NOTE | 2024-02-13 07:54 | PC.NURSE ---
called the cotton ball machine tender cardiology dr. Yanick Gutierrez about a abnormal ECG the QT was 340/416 and was told to hold Sotalol
[2024-02-13] MEDS: SOTALOL HCL 80 MG TABLET PO ×2 (08:40→21:54)
[2024-02-13] MEDS: DOXAZOSIN MESYLATE 2 MG TABLET PO (08:40)
[2024-02-13] MEDS: APIXABAN 5 MG TABLET PO ×2 (08:41→21:54)
--- NOTE | 2024-02-13 08:57 | WPDMODSED ---
Moderate Sedation Note-Pt Data Patient Data Diagnosis: Recurrent/persistent atrial fibrillation Present Complaint: Shortness of breath Procedure to be performed/Plan: DC cardioversion Allergies Allergy/AdvReac Type Severity Reaction Status Date / Time No Known Allergies Allergy Verified 02/10/24 22:35 Home Medications Medication Instructions Recorded Confirmed Type acetaminophen 500 mg tablet 500 mg PO Q6H PRN pain #120 tabs 04/18/22 02/10/24 Rx (Tylenol Extra Strength) docusate sodium 100 mg tablet 100 - 200 mg PO QHS #90 tabs 04/18/22 02/10/24 Rx cholecalciferol (vitamin D3) 25 25 mcg PO DAILY 01/24/23 02/10/24 History mcg (1,000 unit) capsule phenobarbital 30 mg tablet 30 mg PO TID #90 tabs 08/25/23 02/10/24 Rx Dilantin Extended 100 mg capsule 100 mg PO TID #90 caps 09/30/23 02/10/24 Rx (phenytoin sodium extended) calcium carbonate 600 mg-vitamin 1 cap PO BID 11/29/23 02/10/24 History D3 12.5 mcg (500 unit) capsule (Calcium 600 with Vitamin D3) apixaban 5 mg tablet (Eliquis) 5 mg PO BID #60 tabs 12/31/23 02/10/24 Rx metoprolol tartrate 50 mg tablet 50 mg PO TID 01/01/24 02/10/24 History carbidopa 25 mg-levodopa 100 mg See Rx Instructions .Route 01/22/24 02/10/24 Rx tablet .COMPLEX #150 tabs levothyroxine 75 mcg tablet 75 mcg PO DAILY #30 tabs 01/28/24 02/10/24 Rx benzonatate 200 mg capsule 200 mg PO TID PRN cough #30 caps 02/06/24 02/10/24 Rx fluticasone propionate 50 2 spray intranasal DAILY #16 grams 02/06/24 02/10/24 Rx mcg/actuation nasal spray,suspension (Flonase Allergy Relief) mecobalamin (vitamin B12) 1,000 1,000 mcg PO EVERY OTHER DAY 02/10/24 02/10/24 History mcg disintegrating tablet,sublingual Current Medications: Active Medications Apixaban (Apixaban 5 Mg Tablet) 5 mg PO Q12HR MANN Last Admin: 02/13/24 08:41 Dose: 5 mg Calcium Carbonate (Calcium/Vitamin D 500 Mg/5 Mcg (200 I.U.) Tablet) 500 mg PO BID [facility] Last Admin: 02/12/24 17:37 Dose: 500 mg Carbidopa/Levodopa (Carbidopa/Levodopa 25/100 Mg Tablet) 1 tablet BY MOUTH 0630,1030,1530,2100 [facility] Last Admin: 02/13/24 06:11 Dose: 1 tablet Carbidopa/Levodopa (Carbidopa/Levodopa 12.5/50 Mg Tablet) 1 tablet PO 0630,1030 [facility] Last Admin: 02/13/24 06:11 Dose: 1 tablet Cyanocobalamin (Cyanocobalamin 1,000 Mcg Tablet) 1,000 mcg PO [id number]@0900 [facility] Last Admin: 02/11/24 09:47 Dose: 1,000 mcg Doxazosin Mesylate (Doxazosin Mesylate 2 Mg Tablet) 2 mg PO DAILY [facility] Last Admin: 02/13/24 08:40 Dose: 2 mg Fluticasone Propionate (Fluticasone Propionate 0.05% Na Spr 16 Gm Btl (*Bkc)) 2 spray NASAL DAILY [facility] Last Admin: 02/13/24 08:49 Dose: Not Given Furosemide (Furosemide Inj 40 Mg/4 Ml Vial) 40 mg IV PUSH DAILY [facility] Last Admin: 02/12/24 12:53 Dose: 40 mg Home Med (Dilantin (Brand Name) 100 Mg Extended Release Cap *Home Supply) 1 each PO TID [facility] Stop: 03/12/24 12:59 Last Admin: 02/12/24 17:38 Dose: 1 each Azithromycin (Zithromax) 500 mg in 250 mls @ 250 mls/hr IVPB Q24H [facility] Stop: 02/15/24 20:59 Last Admin: 02/12/24 21:23 Dose: 250 mls/hr Levothyroxine Sodium (Levothyroxine Sodium 75 Mcg Tablet) 75 mcg PO DAILY@0630 [facility] Last Admin: 02/13/24 06:11 Dose: 75 mcg Pantoprazole Sodium (Pantoprazole 40 Mg Tablet) 40 mg PO QAM [facility] Last Admin: 02/12/24 09:25 Dose: 40 mg Phenobarbital (Phenobarbital (*Crx) 30 Mg Tablet) 30 mg PO TID [facility] Last Admin: 02/12/24 17:37 Dose: 30 mg Sotalol HCl (Sotalol Hcl 80 Mg Tablet) 80 mg PO Q12HR [facility] Last Admin: 02/13/24 08:40 Dose: 80 mg Vitamin D (Cholecalciferol 1,000 Units Tablet) 1,000 units PO DAILY [facility] Last Admin: 02/12/24 09:25 Dose: 1,000 units Sedation/Anesthesia: No previous sedation/anesthesia problems (including family history). PMF Past Medical History Medical History Afib Arthritis of both knees Arthritis of left hip BMI 23.0-23.9, adult Cerebral palsy W
--- NOTE | 2024-02-13 09:12 | ECG_ITS ---
SEE SCANNED COPY FOR CONFIRMED REPORT MTDD
--- NOTE | 2024-02-13 09:12 | WPDCARDPROC ---
Cardiac Cath Procedure Note Date of procedure:: 02/13/24 Performing physician:: Renzo Grady MD Indication:: Recurrent, symptomatic atrial fibrillation Brief clinical history:: This is an 83-year-old woman with a history of atrial fibrillation diagnosed several months ago. She underwent DC cardioversion and despite ongoing treatment with metoprolol has recurrent atrial fib with which she is symptomatic with dyspnea and fatigue. She has now been transitioned to sotalol and another attempt to restore sinus rhythm electrically is scheduled for this morning Procedure Procedure performed:: DC cardioversion Sedation/Medication given:: Intravenous propofol 1 bolus of 40 mg Estimated blood loss:: 0 Procedure note:: Patient was brought to the cardiac catheterization lab in the postabsorptive state he was in the supine position with defibrillator patches placed in the AP position and the defibrillator turned on at 200 joules in synchronized. She was then given a 40 mg bolus of propofol from the IV in the left antecubital fossa. This resulted in excellent sedation. She was counter shocked with 200 joules x1 which restored sinus rhythm. Findings:: As above Conclusion:: Successful uncomplicated DC cardioversion terminating atrial fibrillation restoring sinus rhythm with 200 joules x1 shock
[2024-02-13] MEDS: CHOLECALCIFEROL 1,000 UNITS TABLET 1000 UNITS PO (10:28)
[2024-02-13] MEDS: PANTOPRAZOLE 40 MG TABLET PO (10:28)
[2024-02-13] MEDS: CALCIUM/VITAMIN D 500 MG/5 MCG (200 I.U.) TABLET PO ×2 (10:28→18:01)
[2024-02-13] MEDS: FUROSEMIDE INJ 40 MG/4 ML VIAL IV PUSH (10:28)
[2024-02-13] MEDS: PHENobarbitaL (*CRX) 30 MG TABLET PO ×3 (10:28→18:01)
[2024-02-13] MEDS: CYANOCOBALAMIN 1,000 MCG TABLET 1000 MCG PO (10:35)
--- NOTE | 2024-02-13 12:46 | WPDURCON ---
Assessment and Plan Assessment and plan (1) Urinary retention: Code(s): R33.9 - Retention of urine, unspecified Status: Resolved Assessment and Plan: Has had ongoing issues with urinary retention during multiple hospitalizations in the past several months. Otto catheter placed on 02/11/2024 as patient was noted to have 400 cc of urine in the bladder. She is entirely asymptomatic. Continue Otto catheter at this time. Would recommend void trial prior to discharge. If successful, would recommend outpatient follow-up in several weeks to ensure she continues to empty well. If unsuccessful, would proceed with urodynamics as an outpatient. Urology Consult Note HPI Date Seen: 02/13/24 Requesting Physician: Helio Spencer MD Primary Care Provider: Bobo Lim PA-C Consult Narrative Narrative: Maame Frias is a 83 year old female with history of postoperative urinary retention in 10/2023 and urethral stricture s/p dilation >30 years ago who is currently admitted for atrial fibrillation with rapid ventricular response and is being seen in consultation for evaluation of urinary retention. The patient states that in October 2023 she had a hip fracture and developed what sounds like postoperative urinary retention requiring Otto catheterization. Following appropriate rehab, her catheter was removed. She was started on Flomax which she took for a short time but noticed that this caused her to have decreased urine output, therefore she stopped taking sometime in November 2023. She had another hospitalization November 2023 for pulmonary embolism at that time had urinary retention again which was felt to be due to a UTI. She had a successful voiding trial prior to discharge. She was again discharged on Flomax which she did not take as prescribed. Since then, she states that she has been voiding without any difficulty. She denies straining to void and reports normal urinary flow. She denies dysuria or hematuria. During this admission, on 02/11/2024, bladder scan was completed which showed 400 cc of urine and therefore Otto catheter was placed. At the time my evaluation, her Otto catheter is draining clear yellow urine she reports no concerns. Her vital signs are stable and she remains afebrile. White blood cell count is within normal limits. Creatinine is 0.9. She reports no concerns. Review of Systems Review of Systems: All systems reviewed & are unremarkable except as noted in HPI and below PMFSH Past Medical History Medical History Afib Arthritis of both knees Arthritis of left hip BMI 23.0-23.9, adult Cerebral palsy With right-sided weakness and spasticity. Constipation Hypertension Hypothyroidism Left knee DJD Left leg pain Low vitamin D level Lumbar radiculopathy Osteoarthritis of left hip Pulmonary embolism Diagnosed 11/29/23 Seizure disorder Trochanteric bursitis, left hip Unstable gait Vitamin D deficiency Vitamin D deficiency Wears glasses Surgical History Surgical History History of appendectomy History of breast biopsy Bilateral, with benign pathology. 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 She lives in a senior apartment in [place], [place]. She has no biological children. She is a lifelong no
[2024-02-14] VITALS (15 sets, daily range): BP systolic 103–117; BP diastolic 49–67; PULSE 58–70; RESP 18–20; TEMP 36.3–37.1; O2SAT 93–97
[2024-02-14] MEDS: LEVOTHYROXINE SODIUM 75 MCG TABLET PO (06:30)
[2024-02-14] MEDS: CARBIDOPA/LEVODOPA 25/100 MG TABLET 1 TABLET BY MOUTH ×4 (06:30→22:45)
[2024-02-14] MEDS: CARBIDOPA/LEVODOPA 12.5/50 MG TABLET 1 TABLET PO ×2 (06:30→10:39)
[2024-02-14 06:49] LABS: Basophils Percent Auto 0.9 % (0.2-1.2); Eosinophils Absolute Auto 0.3 K/mm3 (0-0.3); Eosinophils Percent Auto 6.1 % (0-4.4); Hematocrit 34.7 % (37.0-47.0); Hemoglobin 11.6 g/dL (12.0-15.0); Immature Granulocyte Absolute 0.01 K/mm3 (0.00-0.031); Immature Granulocyte Percent A 0.2 % (0-0.5); Lymphocytes Absolute Auto 0.85 K/mm3 (0.9-3.2); Lymphocytes Percent Auto 19.1 % (18.3-44.2); Mean Corpuscular HGB Conc 33.4 g/dl (32-36); Mean Corpuscular Hemoglobin 33.4 pg (26-34); Mean Platelet Volume 9.4 fl (7.4-10.4); Monocytes Absolute Auto 0.4 K/mm3 (0.1-0.6); Monocytes Percent Auto 9.9 % (2.6-8.5); Neutrophils Absolute Auto 2.8 K/mm3 (1.3-6.7); Neutrophils Percent Auto 63.8 % (45.5-73.1); Platelet Count Result 208 k/mm3 (150-375); Red Blood Count 3.47 M/mm3 (4.2-5.4); Red Cell Distribution Width 14.6 % (11.5-14.5); White Blood Count 4.5 K/mm3 (4.5-10.0)
[2024-02-14 07:02] LABS: Alanine Aminotransferase 7 U/L (6-35); Albumin Level 3.6 g/dL (3.5-5.1); Alkaline Phosphatase 87 U/L (38-126); Anion Gap 7 mmol/L (4-12); Aspartate Amino Transferase 30 U/L (14-36); Bilirubin,Total 0.3 mg/dL (0.2-1.3); Blood Urea Nitrogen 24 mg/dL (7-17); Calcium 8.3 mg/dL (8.4-10.2); Carbon Dioxide 26 mmol/L (22-30); Chloride 104 mmol/L (98-107); Estimated CRCL calculation 40 ml/min; Estimated Glomerular Filt Rate > 60; Glucose 91 mg/dL (65-110); Potassium 3.6 mmol/L (3.4-5.0); Sodium 137 mmol/L (137-145)
[2024-02-14] MEDS: CALCIUM/VITAMIN D 500 MG/5 MCG (200 I.U.) TABLET PO ×2 (09:13→17:03)
[2024-02-14] MEDS: APIXABAN 5 MG TABLET PO ×2 (09:13→22:46)
[2024-02-14] MEDS: DOXAZOSIN MESYLATE 2 MG TABLET PO (09:14)
[2024-02-14] MEDS: CHOLECALCIFEROL 1,000 UNITS TABLET 1000 UNITS PO (09:14)
[2024-02-14] MEDS: FUROSEMIDE INJ 40 MG/4 ML VIAL IV PUSH (09:15)
[2024-02-14] MEDS: PANTOPRAZOLE 40 MG TABLET PO (09:15)
[2024-02-14] MEDS: PHENobarbitaL (*CRX) 30 MG TABLET PO ×3 (09:16→17:03)
[2024-02-14] MEDS: SOTALOL HCL 80 MG TABLET PO ×2 (09:16→22:45)
--- NOTE | 2024-02-14 11:48 | PM.PNCARD ---
Progress Note: A&P Assessment and Plan (1) A-fib: Qualifiers: Atrial fibrillation type: paroxysmal Qualified Code(s): I48.0 - Paroxysmal atrial fibrillation Code(s): I48.91 - Unspecified atrial fibrillation Status: Acute Plan 83-year-old lady with: Paroxysmal atrial fibrillation. Has early recurrence following recent cardioversion. His she has been cardioverted again yesterday to sinus rhythm after her medication was advanced from metoprolol to sotalol. She is stable hemodynamically her rhythm looks fine. Discharge any time is okay with me. I will sign off of her inpatient service at this time. We will ensure that timely follow-up is arranged in the office with Dr. Marin after discharge. Renzo Grady MD [facility] Subjective Date/time seen: Date of service: 02/14/24 11:48 Interval history: Cardiology follow up for atrial fibrillation She is complaining of shortness of breath today. She was unable to sleep lying down last night because it was difficult for her to breathe. Also complaining of cough. Does not have palpitations or chest pain. Tele: Afib rate controlled at times with intermittent RVR in the 130's-140's Date of service 02/14/2024: Patient is in good spirits feeling well underwent DC cardioversion back to sinus rhythm yesterday. Telemetry looks very good with sinus rhythm heart rate in the 50s and 60s with occasional PACs. She says that she is not yet discharge because of generalized weakness and needs to be able to ambulate better before cage she can be discharged hopefully she will be able to go home relatively soon Exam Const: General: comfortable, no acute distress, alert, awake and thin Nutritional Appearance: thin Other: Pleasant thin elderly lady no distress of any kind HENMT: Mouth: Yes moist mucous membranes Eyes: Sclera: sclerae normal Neck: Neck: supple and JVD Other: Approximately 2 cm of jugular venous distention Resp: Effort & Inspection: normal respiratory effort Auscultation: not clear to auscultation bilaterally and rales bilateral Other: Dullness at the bases with some right basilar rales Cardio: Rate: regular rate Rhythm: regular rhythm GI: Auscultation: normal bowel sounds Skin: General skin exam: normal color Neuro: Other: Alert and oriented x3 Extrem: Other: Good perfusion, no edema Objective Data Vital Signs Vital Signs: Vital Signs - 24 hr 02/13/24 14:00 02/13/24 12:00 02/13/24 16:00 Temperature 36.1 C L Pulse Rate 63 60 59 L Respiratory Rate 20 Blood Pressure 102/54 L Pulse Oximetry 92 Oxygen Delivery 02/13/24 21:54 02/13/24 22:00 02/13/24 20:00 Temperature 36.6 C Pulse Rate 68 65 66 Respiratory Rate 18 Blood Pressure 111/56 L Pulse Oximetry 95 Oxygen Delivery 02/14/24 06:00 02/14/24 00:00 02/14/24 04:00 Temperature 37.1 C Pulse Rate 59 L 61 58 L Respiratory Rate 20 Blood Pressure 107/52 L Pulse Oximetry 97 Oxygen Delivery 02/14/24 09:16 02/14/24 10:02 Temperature Pulse Rate 59 L Respiratory Rate Blood Pressure Pulse Oximetry 93 Oxygen Delivery Room Air Intake/Output Intake/Output: Intake & Output 02/11/24 02/12/24 02/13/24 02/14/24 23:59 23:59 23:59 23:59 Intake Total 1110 1770 480 510 Output Total 1125 1450 1900 100 Balance -15 320 -1420 410 Meds/Results Medications: Active Medications Generic Name Dose Route Start Last Admin Trade Name Anayeli PRN Reason Stop Dose Admin Apixaban 5 mg 02/11/24 09:00 02/14/24 09:13 Apixaban 5 Mg Tablet PO 5 mg Q12HR MANN Administration Calcium Carbonate 500 mg 02/11/24 09:00 02/14/24 09:13 Calcium/Vitamin D 500 Mg/5 Mcg (200 I.U.) Tablet PO 500 mg BID MANN Administration Carbidopa/Levodopa 1 tablet 02/11/24 10:30 02/14/24 10:39 Carbidopa/Levodopa 25/100 Mg Tablet BY MOUTH 1 tablet 0630,1030,1530,2100 MANN Administration Carbidopa
--- NOTE | 2024-02-14 16:46 | PM.IMPN ---
Progress Note: A&P Assessment and Plan (1) Atrial fibrillation with rapid ventricular response: Code(s): I48.91 - Unspecified atrial fibrillation Status: Acute Assessment and Plan: Doing well since cardioversion in sinus rhythm on sotalol (2) Hypertension: Qualifiers: Hypertension type: essential hypertension Qualified Code(s): I10 - Essential (primary) hypertension Code(s): I10 - Essential (primary) hypertension Status: Chronic Assessment and Plan: Blood pressure 103/54 02/12 Check orthostatics and ambulate prior to discharging (3) CHF (congestive heart failure): Qualifiers: Heart failure chronicity: acute on chronic Heart failure type: right-sided Qualified Code(s): I50.813 - Acute on chronic right heart failure Code(s): I50.9 - Heart failure, unspecified Status: Acute Assessment and Plan: Clinically a baseline (4) Pulmonary embolism: Qualifiers: Pulmonary embolism type: unspecified Chronicity: acute Acute cor pulmonale presence: without acute cor pulmonale Qualified Code(s): I26.99 - Other pulmonary embolism without acute cor pulmonale Code(s): I26.99 - Other pulmonary embolism without acute cor pulmonale Status: Acute Assessment and Plan: Continue Eliquis Subjective Date/time seen: 02/14/24 16:46 Interval history: Feels very tired and weak in her legs. Does not feel safe going home as she has a long hallway to walk at the assisted living to get her room. Denied chest pain shortness of breath or palpitations. Denied GI or difficulties. Catheter is out in urinating without difficulty. No blood in urine or stool. No other abnormal bleeding. No focal weakness or numbness. Review of Systems Review of Systems: All systems reviewed & are unremarkable except as noted in HPI and below Exam Narrative: HEENT: PERRL, sclerae nonicteric, pharyngeal mucosa pink and intact NECK: No JVD CHEST: Clear to auscultation. Normal effort. HEART: NL S1/S2, regular, no murmur ABDOMEN: BS+, soft, nontender, no mass, no bruits EXTREMITIES: No cyanosis, edema, or clubbing NEUROLOGIC: CN intact and symmetric to inspection. MUSCULOSKELETAL: Tone and strength symmetric. PSYCH: Alert. Oriented to person, place, and time. Objective Data Vital Signs Vital Signs: Vital Signs - 24 hr 02/13/24 21:54 02/13/24 22:00 02/13/24 20:00 Temperature 97.9 F Pulse Rate 68 65 66 Respiratory Rate 18 Blood Pressure 111/56 L Pulse Oximetry 95 Oxygen Delivery 02/14/24 06:00 02/14/24 00:00 02/14/24 04:00 Temperature 98.7 F Pulse Rate 59 L 61 58 L Respiratory Rate 20 Blood Pressure 107/52 L Pulse Oximetry 97 Oxygen Delivery 02/14/24 09:16 02/14/24 10:02 02/14/24 08:00 Temperature Pulse Rate 59 L Respiratory Rate Blood Pressure Pulse Oximetry 93 Oxygen Delivery Room Air Room Air 02/14/24 14:00 02/14/24 08:00 02/14/24 12:00 Temperature 97.4 F L Pulse Rate 62 58 L 60 Respiratory Rate 18 Blood Pressure 103/54 L Pulse Oximetry 95 Oxygen Delivery 02/14/24 16:00 Temperature Pulse Rate 59 L Respiratory Rate Blood Pressure Pulse Oximetry Oxygen Delivery Intake/Output Intake/Output: Intake & Output 02/11/24 02/12/24 02/13/24 02/14/24 23:59 23:59 23:59 23:59 Intake Total 1110 1770 480 510 Output Total 1125 1450 1900 100 Balance -15 320 -1420 410 Meds/Results Medications: Active Medications Generic Name Dose Route Start Last Admin Trade Name Anayeli PRN Reason Stop Dose Admin Apixaban 5 mg 02/11/24 09:00 02/14/24 09:13 Apixaban 5 Mg Tablet PO 5 mg Q12HR MANN Administration Calcium Carbonate 500 mg 02/11/24 09:00 02/14/24 09:13 Calcium/Vitamin D 500 Mg/5 Mcg (200 I.U.) Tablet PO 500 mg BID MANN Administration Carbidopa/Levodopa 1 tablet 02/11/24 10:30 02/14/24 15:22 Carbidopa/Levodopa 25/100 Mg Tab
[2024-02-15] VITALS: PULSE 67
[2024-02-15 04:00] VITALS: PULSE 63
[2024-02-15 06:00] VITALS: BP 112/55; PULSE 61; RESP 16; TEMP 36.4; O2SAT 92
[2024-02-15 06:13] LABS: Basophils Absolute Auto 0.1 K/mm3 (0.0-0.1); Eosinophils Absolute Auto 0.3 K/mm3 (0-0.3); Eosinophils Percent Auto 5.6 % (0-4.4); Hematocrit 34.5 % (37.0-47.0); Hemoglobin 11.4 g/dL (12.0-15.0); Immature Granulocyte Absolute 0.01 K/mm3 (0.00-0.031); Immature Granulocyte Percent A 0.2 % (0-0.5); Lymphocytes Absolute Auto 1.05 K/mm3 (0.9-3.2); Lymphocytes Percent Auto 21.6 % (18.3-44.2); Mean Corpuscular Hemoglobin 32.9 pg (26-34); Mean Corpuscular Volume 99.4 fl (80-100); Mean Platelet Volume 9.6 fl (7.4-10.4); Monocytes Absolute Auto 0.5 K/mm3 (0.1-0.6); Monocytes Percent Auto 9.7 % (2.6-8.5); Neutrophils Percent Auto 61.9 % (45.5-73.1); Platelet Count Result 226 k/mm3 (150-375); Red Blood Count 3.47 M/mm3 (4.2-5.4); Red Cell Distribution Width 14.6 % (11.5-14.5); White Blood Count 4.9 K/mm3 (4.5-10.0)
[2024-02-15 06:20] LABS: Alanine Aminotransferase 7 U/L (6-35); Albumin Level 3.7 g/dL (3.5-5.1); Alkaline Phosphatase 92 U/L (38-126); Anion Gap 6 mmol/L (4-12); Aspartate Amino Transferase 32 U/L (14-36); Bilirubin,Total 0.4 mg/dL (0.2-1.3); Blood Urea Nitrogen 23 mg/dL (7-17); Calcium 8.8 mg/dL (8.4-10.2); Carbon Dioxide 26 mmol/L (22-30); Chloride 107 mmol/L (98-107); Estimated CRCL calculation 45 ml/min; Estimated Glomerular Filt Rate > 60; Glucose 91 mg/dL (65-110); Potassium 3.8 mmol/L (3.4-5.0); Sodium 139 mmol/L (137-145)
[2024-02-15] MEDS: CARBIDOPA/LEVODOPA 12.5/50 MG TABLET 1 TABLET PO (06:34)
[2024-02-15] MEDS: CARBIDOPA/LEVODOPA 25/100 MG TABLET 1 TABLET BY MOUTH (06:34)
[2024-02-15] MEDS: LEVOTHYROXINE SODIUM 75 MCG TABLET PO (06:34)
[2024-02-15] MEDS: FLUTICASONE PROPIONATE 0.05% NA SPR 16 GM BTL (*BKC) 2 SPRAY NASAL (09:06)
[2024-02-15] MEDS: FUROSEMIDE INJ 40 MG/4 ML VIAL IV PUSH (09:06)
[2024-02-15] MEDS: APIXABAN 5 MG TABLET PO (09:06)
[2024-02-15] MEDS: CALCIUM/VITAMIN D 500 MG/5 MCG (200 I.U.) TABLET PO (09:06)
[2024-02-15] MEDS: PHENobarbitaL (*CRX) 30 MG TABLET PO (09:06)
[2024-02-15] MEDS: SOTALOL HCL 80 MG TABLET PO (09:06)
[2024-02-15] MEDS: DOXAZOSIN MESYLATE 2 MG TABLET PO (09:06)
[2024-02-15] MEDS: CHOLECALCIFEROL 1,000 UNITS TABLET 1000 UNITS PO (09:06)
[2024-02-15] MEDS: PANTOPRAZOLE 40 MG TABLET PO (09:06)
--- NOTE | 2024-02-15 12:59 | PM.DS ---
DS: Admitting Diagnosis Discharge Date 02/15/2024 Admitting Diagnosis Atrial fibrillation rapid ventricular rate DS: Discharge Diagnosis Discharge Diagnosis (1) Atrial fibrillation with rapid ventricular response: Code(s): I48.91 - Unspecified atrial fibrillation Status: Acute Assessment and Plan: Doing well since cardioversion in sinus rhythm on sotalol (2) Hypertension: Qualifiers: Hypertension type: essential hypertension Qualified Code(s): I10 - Essential (primary) hypertension Code(s): I10 - Essential (primary) hypertension Status: Chronic Assessment and Plan: Blood pressure 103/54 524 5 orthostatic blood which was in the same range as her supine and sitting blood pressure (3) CHF (congestive heart failure): Qualifiers: Heart failure chronicity: acute on chronic Heart failure type: right-sided Qualified Code(s): I50.813 - Acute on chronic right heart failure Code(s): I50.9 - Heart failure, unspecified Status: Acute Assessment and Plan: Clinically a baseline (4) Pulmonary embolism: Qualifiers: Pulmonary embolism type: unspecified Chronicity: acute Acute cor pulmonale presence: without acute cor pulmonale Qualified Code(s): I26.99 - Other pulmonary embolism without acute cor pulmonale Code(s): I26.99 - Other pulmonary embolism without acute cor pulmonale Status: Acute Assessment and Plan: Continue Eliquis DS: Summary Hospital Course Hospital Course: Admitted February 09 chief breath. Found to have atrial fibrillation with rapid ventricular rate in 130s. Was treated with p.o. Cardizem x1 followed by IV metoprolol x1. Cardiology was consulted and started p.o. sotalol. Patient tolerated this well she required DC cardioversion for continued H with rapid ventricular rate on 02/12. She tolerated this well and remained in sinus rhythm afterwards with continuation of the sotalol. For congestive heart failure she was given furosemide 40 mg IV daily. By see ambulating with a Rollator walker with standby assist and able to toilet and dress and bathe with standby assist. Chest XR 1. Diffuse mild interstitial and bilateral perihilar and basilar airspace opacities most likely mild pulmonary edema and associated atelectasis although differential includes pneumonia. 2. Small bilateral pleural effusions. EKG Time Spent with Patient Time attestation: Total time spent providing and/or coordinating discharge services: Exam Narrative: HEENT: PERRL, sclerae nonicteric, pharyngeal mucosa pink and intact NECK: No JVD CHEST: Clear to auscultation. Normal effort. HEART: NL S1/S2, regular, no murmur ABDOMEN: BS+, soft, nontender, no mass, no bruits EXTREMITIES: No cyanosis, edema, or clubbing NEUROLOGIC: CN intact and symmetric to inspection. MUSCULOSKELETAL: Tone and strength symmetric. PSYCH: Alert. Oriented to person, place, and time. DS: Data Data Completed and Pending Labs on day of discharge: Labs from last 24 hours 02/15/24 05:18 WBC 4.9 RBC 3.47 L Hgb 11.4 L Hct 34.5 L MCV 99.4 MCH 32.9 MCHC 33.0 RDW 14.6 H Plt Count 226 MPV 9.6 Immature Gran % (Auto) 0.2 Neut % (Auto) 61.9 Lymph % (Auto) 21.6 Beadle % (Auto) 9.7 H Eos % (Auto) 5.6 H Baso % (Auto) 1.0 Lymph # (Auto) 1.05 Beadle # (Auto) 0.5 Eos # (Auto) 0.3 Baso # (Auto) 0.1 Abs Immat Gran (auto) 0.01 Absolute Neuts (auto) 3.0 Absolute Nucleated RBC 0.000 Nucleated RBC % 0.0 Sodium 139 Potassium 3.8 Chloride 107 Carbon Dioxide 26 Anion Gap 6 BUN 23 H Creatinine 0.70 Estim Creat Clear Calc 45 Estimated GFR > 60 Glucose 91 Calcium 8.8 Total Bilirubin 0.4 AST 32 ALT 7 Alkaline Phosphatase 92 Total Protein 7.0 Albumin 3.7 Preliminary micro results at discharge 02/10/24 23:16 Blood Culture - Preliminary Blood 02/10/24 23:16 Blood Culture - Preliminary Blood Di
[2024-02-15 14:00] VITALS: BP 122/72; PULSE 64; RESP 18; TEMP 36.6; O2SAT 98
== END 2024-02-15 14:54 | DRG 308 ==
LOC: ANHED 19:13 → ANH3MEDSUR 21:03
PROVIDERS: Nurse Practitioner; Nurse Practitioner Acute Care; Specialist; Admitting Provider Internal Medicine; Emergency Provider Emergency Medicine; PCP Physician Assistant; Visit Provider Internal Medicine
PROC: 5A2204Z Restoration of Cardiac Rhythm, Single (ICD-10-PCS; principal; 2024-02-13 09:00)
DX: I48.0 Paroxysmal atrial fibrillation (principal); J18.9 Pneumonia, unspecified organism; J96.01 Acute respiratory failure with hypoxia; I11.0 Hypertensive heart disease with heart failure; I50.813 Acute on chronic right heart failure; E03.9 Hypothyroidism, unspecified; E55.9 Vitamin D deficiency, unspecified; G80.9 Cerebral palsy, unspecified; G40.909 Epilepsy, unspecified, not intractable, without status epilepticus; M17.12 Unilateral primary osteoarthritis, left knee; R33.9 Retention of urine, unspecified; Z86.711 Personal history of pulmonary embolism; Z96.611 Presence of right artificial shoulder joint; Z96.642 Presence of left artificial hip joint; Z90.49 Acquired absence of other specified parts of digestive tract
CPT/HCPCS: 36415; 71045; 80053; 83735; 83880; 84484; 85025; 85610; 85730; 87040; 92960; 93005; 96374; 97161; 99285; A9270; J0456; J0696; J1940; J2704; J7040

== ENCOUNTER 2024-06-18 09:10 | Outpatient (CLI) | payer MEDICARE, OTHER, SELFPAY ==
--- NOTE | ~2024-06-18 | DEXA_ITS ---
Bone Density Report Name: PRESLEY BRISCOE Age: 83 Sex: Female Ethnicity: White Date of : 1940 Indication: postmenopausal; screening for osteoporosis; height loss; history of glucocorticoids; seizure disorder; hysterectomy; Referring Provider: ISAMAR CRUZ Study: Bone densitometry was performed. Exam Date: June 18, 2024 Accession number: [id number] Bone Density: Region BMD T-score Z-score Classification Femoral Neck (Right) 0.535 -2.8 -0.4 Osteoporosis Total Hip (Right) 0.666 -2.3 0.0 Osteopenia World Health Organization criteria for BMD impression classify patients as: Normal (T-score at or above -1.0), Osteopenia (T-score between -1.0 and -2.5), or Osteoporosis (T-score at or below -2.5). 10-year Fracture Risk: FRAX not reported because: Some T-score for Spine Total or Hip Total or Femoral Neck at or below -2.5 Treated for osteoporosis Clinical Information Provided by Patient: Has taken Glucocorticoids Is being treated for osteoporosis Has used the following medications: Vitamin D, Calcium Has the following medical conditions: Any Seizure Disorders, Hysterectomy Patient maximum height was 68 Menopause Age: 48 No regular weight bearing exercise Drinks caffeinated beverages Onset of menses at age 12 Number of children 0 Impression: The patient has osteoporosis, based on the Right Femoral Neck T-score. The patient has risk factors, including: history of glucocorticoid therapy. Discussion: It is important to ask patients whether they are taking their medications and to encourage continued and appropriate compliance with their osteoporosis therapies to reduce fracture risk. It is also important to review their risk factors and encourage appropriate calcium and vitamin D intakes, exercise, fall prevention and other lifestyle measures. Follow-Up: Consider a repeat BMD and Vertebral Fracture Assessment (VFA) exam in 2 years or sooner if medically necessary, to reassess this patient's status. Reported by: DARLENE on 06/18/2024 9:41:00 AM. Reviewed, dictated and finalized at location A. [facility]
== END 2024-06-18 09:11 | disposition home or self-care (01) ==
LOC: ANHIMG 09:12
PROVIDERS: PCP Internal Medicine; Visit Provider Internal Medicine Endocrinology, Diabetes & Metabolism
DX: M81.0 Age-related osteoporosis without current pathological fracture (principal)
CPT/HCPCS: 77080

== ENCOUNTER 2024-08-18 18:52 | Emergency (ER) | payer MEDICARE, SELFPAY ==
--- NOTE | ~2024-08-18 | XR_ITS ---
EXAMINATION: XR chest 1V portable DATE: 08/18/2024 20:57 INDICATION: Fall TECHNIQUE: frontal view of the chest was obtained. COMPARISON: Chest radiograph dated 02/12/2024 FINDINGS: Biapical pleural-parenchymal scarring. Calcified nodules in the right midlung zone. Mild streaky left basilar atelectasis/scarring. No pulmonary edema, pleural effusion or pneumothorax. The cardiomedias tinal silhouette is normal. Mild S-shaped scoliosis of the thoracolumbar spine with moderate to sever e spondylosis. Reverse right total shoulder arthroplasty. IMPRESSION: 1. Streaky atelectasis/scarring at the left lung base and mild biapical pleural-parenchymal scarring. Reviewed, dictated and finalized at location A. WEAR SALES COORDINATOR IMPRESSION: 1. Streaky atelectasis/scarring at the left lung base and mild biapical pleural -parenchymal scarring.
--- NOTE | ~2024-08-18 | CT_ITS ---
EXAMINATION: CT brain wo con DATE: 08/18/2024 21:19 INDICATION: Fall with head injury TECHNIQUE: Computed tomography (CT) of the head was performed without intravenous contrast. Sagittal and coronal reconstructions were performed. The mA was adjusted according to patient size. Iterative reconstruction technique was employed. The dose-length product was 681.00 mGy-cm. COMPARISON: Brain MR dated 02/07/2022 FINDINGS: No fracture. Unchanged small old infarcts in the left frontal lobe is 0, left basal ganglia and inter nal capsule. No acute intracranial hemorrhage, acute infarction or abnormal extra axial fluid collect ion. There is moderate scattered white matter hypoattenuation consistent with chronic small vessel is chemic disease. Symmetric prominence of the sulci and subarachnoid spaces overlying the convexities a nd cerebellum consistent with mild to moderate age-appropriate diffuse cerebral and cerebellar volume loss. Ventricles are normal and symmetric. No mass/mass effect. Changes of bilateral intraocular neisha s replacement. The orbits and mastoid air cells are normal. Mucosal thickening the bilateral ethmoid sinuses and right maxillary sinus the latter also some bubbly mucus consistent with acute sinusitis. IMPRESSION: 1. No fracture or acute intracranial process. 2. 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 3. Age-related changes including mild to moderate diffuse cerebral and cerebellar volume loss and mod erate scattered white matter hypoattenuation consistent with chronic small vessel ischemic disease. 4. Bubbly mucus in the right maxillary sinus. Correlate for acute sinusitis. Reviewed, dictated and finalized at location A. PREPARATION OPERATOR IMPRESSION: 1. No fracture or acute intracranial process. 2. 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 3. Age-related changes including mild to moderate diffuse cerebral and cerebell ar volume loss and moderate scattered white matter hypoattenuation consistent w ith chronic small vessel ischemic disease. 4. Bubbly mucus in the right maxillary sinus. Correlate for acute sinusitis.
--- NOTE | ~2024-08-18 | CT_ITS ---
EXAMINATION: CT cervical spine wo con DATE: 08/18/2024 21:20 INDICATION: Fall with head injury TECHNIQUE: Computed tomography (CT) of the cervical spine was performed without intravenous contrast. Automated exposure control and iterative reconstruction technique were employed. The dose-length pro duct was 147.16 mGy-cm. COMPARISON: None FINDINGS: Severe osteoarthritis at the atlantoaxial articulation. 5 degrees cervical levocurvature. Vertebral b roberto heights are normal. No acute fractures. Old healed fracture at the medial most posterior right fo urth rib. Moderate disc height loss at C6-C7. Mild to moderate disc height loss at C6-C7 and mild dis c height loss throughout the remainder of the cervical and upper thoracic spine. Severe uncovertebral osteoarthritis on the right at C3-C4 and on the left at C6-C7. Mild to moderate uncovertebral osteoa rthritis throughout the remainder of the cervical spine. Multilevel bilateral moderate to severe cerv ical facet osteoarthritis most prominent along the right right at C3-C4 through C5-C6 and on the conc ave side of the cervical levocurvature. Mid osteophytes contributing to mild central canal stenosis a t C3-C4 and C6-C7. There is moderate neural foraminal stenosis on the right at C3-C4 and C4-C5 with m ild neural foraminal stenosis at a few additional cervical neural foramina. Atherosclerotic calcifica tions at the bilateral carotid bulbs. Cervical soft tissues are otherwise unremarkable. Moderate biap ical pleural-parenchymal scarring. IMPRESSION: 1. Moderate cervical spondylosis. No acute osseous abnormality. Reviewed, dictated and finalized at location A. MEN
[2024-08-18 18:55] VITALS: BP 149/69; PULSE 71; RESP 15; TEMP 36.9; O2SAT 97
[2024-08-18 19:00] VITALS: BP 132/55; PULSE 71; RESP 14; O2SAT 98
--- NOTE | 2024-08-18 19:05 | ECG_ITS ---
Test Date: 2024-08-18 19:07:33 Measurements Intervals Allen Rate: 69 P: 61 NH: 176 QRS: 6 QRSD: 77 T: 30 QT: 428 QTc: 459 Interpretive Statements SINUS RHYTHM BASELINE ARTIFACT- I, II, AVR, AVL, AVF, V1-V6 NORMAL ECG No previous ECG available for comparison Electronically Signed On 08-19-2024 07:22:37 NEUROPSYCHOLOGIST by Levar Reece D.O.
[2024-08-18 20:00] VITALS: BP 138/70; PULSE 66; RESP 18; O2SAT 100
--- NOTE | 2024-08-18 20:02 | ED.FALL ---
HPI - Fall General Chief Complaint: Fall <Jersey Granados MD - Last Filed: 08/18/24 22:04> Stated Complaint: DIAAY, UNSTEADY, FALL, Sz Hx <Jersey Granados MD - Last Filed: 08/18/24 22:04> Time Seen by Provider: 08/18/24 20:02 <Jersey Granados MD - Last Filed: 08/18/24 22:04> Source: patient and EMS <Jersey Granados MD - Last Filed: 08/18/24 22:04> Mode of arrival: EMS <Jersey Granados MD - Last Filed: 08/18/24 22:04> Limitations: no limitations <Jersey Granados MD - Last Filed: 08/18/24 22:04> History of Present Illness HPI Narrative: PATIENT IS 83 YEARS OLD WHITE FEMALE CAME TO THE ED FROM [facility] BY AMBULANCE COMPLAINING OF OCCIPITAL PAIN AFTER A FALL. PATIENT WAS WALKING, A WALKER, POOR EQUILIBRIUM, MAINLY TURNING CORNERS FAST FELL BACKWARD, STRUCK THE BACK OF HER HEAD ON THE FLOOR, NO LOSS OF CONSCIOUSNESS. PATIENT DENIES ANY FEVER, CHILLS, NAUSEA, VOMITING, CHEST PAIN, SHORTNESS OF BREATH, BACK PAIN OR ABDOMINAL PAIN OR EXTREMITY PAIN. PATIENT HAVE HISTORY OF FALLS FOR THE LAST 10-12 YEARS. PATIENT IS TELLING ME THAT HER EQUILIBRIUM GETTING WORSE OVER THE LAST FEW WEEKS. HISTORY OF RIGHT SHOULDER REPLACEMENT LEFT HIP REPLACEMENT, ATRIAL FIBRILLATION, SEIZURE ON DILANTIN, LAST SEIZURE WAS OVER 10 YEARS AGO. <Jersey Granados MD - Last Filed: 08/18/24 22:04> Related Data Home Medications: Home Medications Medication Instructions Recorded Confirmed cholecalciferol (vitamin D3) 25 25 mcg PO DAILY 01/24/23 04/26/24 mcg (1,000 unit) capsule calcium 600 mg (as 1 cap PO BID 11/29/23 04/26/24 carbonate)-vitamin D3 12.5 mcg (500 unit) capsule (Calcium with Vit D3) mecobalamin (vitamin B12) 1,000 1,000 mcg PO EVERY OTHER DAY 02/10/24 04/26/24 mcg disintegrating tablet,sublingual carbidopa 25 mg-levodopa 100 mg See Rx Instructions .Route .COMPLEX 04/26/24 04/26/24 tablet sotalol 80 mg tablet 40 mg PO Q12HR 04/26/24 04/26/24 <Jersey Granados MD - Last Filed: 08/18/24 22:04> Allergies/Adverse Reactions: Allergies Allergy/AdvReac Type Severity Reaction Status Date / Time iohexol Allergy Itching Verified 08/18/24 19:24 [From contrast - CT, X-RAY] <Jersey Granados MD - Last Filed: 08/18/24 22:04> Review of Systems Review of Systems: All systems reviewed & are unremarkable except as noted in HPI and below <Jersey Granados MD - Last Filed: 08/18/24 22:04> [facility] Past Medical History Medical History: Medical History Afib Arthritis of both knees Arthritis of left hip BMI 23.0-23.9, adult Cerebral palsy With right-sided weakness and spasticity. Constipation Hypertension Hypothyroidism Left knee DJD Left leg pain Low vitamin D level Lumbar radiculopathy Osteoarthritis of left hip Pulmonary embolism Diagnosed 11/29/23 Seizure disorder Trochanteric bursitis, left hip Unstable gait Vitamin D deficiency Vitamin D deficiency Wears glasses <Jersey Granados MD - Last Filed: 08/18/24 22:04> Surgical History Surgical History: Surgical History History of appendectomy History of breast biopsy Bilateral, with benign pathology. 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 She lives in a senior apartment in [place], [place]. She has no biological children. She is a lifelong nonsmoker and denies alcohol and drug use. She designates her stepdaughter, Nighat Francis and her friend Karyna Domínguez as her surrogate decision makers and she wishes to be a full code. Smoking status: Never smoker Second hand tobacco smoke exposure: No Alcohol intake: never Substance use: never Do You Feel Safe in your Home?: Yes Lack of Transportation: No Lack of Food: Never True Current Housing: I Have Housing Concerned About Future Housing: No Difficulty Paying Gas/Electric Bills: No Difficulty Paying for Meds: No Currently Unemployed: No Education: High School Diploma/GED Difficulty w/ Childcare or Family Care: No Living arrangements: alone Occupation/Education: retired Gender identity (if verbalized by the patient): Female Spiritual care concerns: Yes <Jersey Granados MD - Last Filed: 08/18/24 22:04> Exam Narrative: GENERAL APPEARANCE: WELL-DEVELOPED, WELL-NOURISHED SKIN: NORMAL COLOR HEAD: NORMOCEPHALIC, NONTRAUMATIC EYES: CLEAR CONJUNCTIVA ENT: OROPHARYNX NORMAL, EARS NORMAL, NOSE NORMAL NECK: SUPPLE, NONTENDER CHEST AND RESPIRATORY: AIRWAY PATENT, NO RESPIRATORY DISTRESS, NO ACCESSORY MUSCLE USE HEART: REGULAR RATE/RHYTHM ABDOMEN: SOFT, NONTENDER, NO ORGANOMEGALY, QUIET BOWEL SOUNDS MUSCULOSKELETAL: NORMAL RANGE OF MOTION, NONTENDER BACK, SCOLIOSIS, KYPHOSIS, NO BACK TENDERNESS, NO BRUISES, NO SWELLING OR RASH NEUROLOGIC: ALERT AND ORIENTED ?3, BIOLOGICAL AIDE IS NORMAL TESTED, NO GROSS MOTOR DEFICIT <Jersey Granados MD - Last Filed: 08/18/24 22:04> Course Consultations Consultation #1: DR. CAITLYN STAPLETON AT [facility]IFT [facility], WAITING FOR URINALYSIS, DILANTIN LEVEL. I BELIEVE PATIENT WILL GO BACK TO ASSISTING LIVING UNLESS IF THE DILANTIN LEVEL IS ABNORMAL <Jersey Granados MD - Last Filed: 08/18/24 22:04> Date: 08/18/24 <Jersey Granados MD - Last Filed: 08/18/24 22:04> Time: 22:03 <Jersey Granados MD - Last Filed: 08/18/24 22:04> Vital Signs Vital signs: Vital Signs Temperature 36.9 C 08/18/24 18:55 Pulse Rate 71 08/18/24 18:55 Respiratory Rate 15 08/18/24 18:55 Blood Pressure 149/69 H 08/18/24 18:55 Pulse Oximetry 97 08/18/24 18:55 Oxygen Delivery Room Air 08/18/24 18:55 Temperature 36.3 C L 08/18/24 23:23 Pulse Rate 78 08/18/24 23:23 Respiratory Rate 18 08/18/24 23:23 Blood Pressure 143/62 H 08/18/24 23:23 Pulse Oximetry 97 08/18/24 23:23 Oxygen Delivery Room Air 08/18/24 18:55 <Jersey Granados MD - Last Filed: 08/18/24 22:04> Vital Signs Temperature 36.9 C 08/18/24 18:55 Pulse Rate 71 08/18/24 18:55 Respiratory Rate 15 08/18/24 18:55 Blood Pressure 149/69 H 08/18/24 18:55 Pulse Oximetry 97 08/18/24 18:55 Oxygen Delivery Room Air 08/18/24 18:55 Temperature 36.3 C L 08/18/24 23:23 Pulse Rate 78 08/18/24 23:23 Respiratory Rate 18 08/18/24 23:23 Blood Pressure 143/62 H 08/18/24 23:23 Pulse Oximetry 97 08/18/24 23:23 Oxygen Delivery Room Air 08/18/24 18:55 <Valerio Blair MD - Last Filed: 08/19/24 00:24> MDM - Fall MDM Narrative Medical decision making narrative: PATIENT PRESENTS WITH A FALL AFTER LOSING HER BALANCE. VITAL SIGNS ARE STABLE PHYSICAL EXAMINATION SHOWED SLIGHT TENDERNESS AT THE OCCIPITAL AREA OTHERWISE NO BRUISES, NO SWELLING, NO HEMATOMA DIFFERENTIAL DIAGNOSIS ORTHOSTATIC HYPOTENSION, ELECTROLYTE IMBALANCE, DEHYDRATION, URINARY TRACT INFECTION, EQUILIBRIUM DISORDER WORKUP TODAY INCLUDES CBC, CMP, DILANTIN LEVEL, URINALYSIS, CT HEAD AND CERVICAL SPINE WITHOUT CONTRAST, EKG, CHEST X-RAY SHOWED <Jersey Granados MD - Last Filed: 08/18/24 22:04> PATIENT PRESENTS WITH A FALL AFTER LOSING HER BALANCE. VITAL SIGNS ARE STABLE PHYSICAL EXAMINATION SHOWED SLIGHT TENDERNESS AT THE OCCIPITAL AREA OTHERWISE NO BRUISES, NO SWELLING, NO HEMATOMA DIFFERENTIAL DIAGNOSIS ORTHOSTATIC HYPOTENSION, ELECTROLYTE IMBALANCE, DEHYDRATION, URINARY TRACT INFECTION, EQUILIBRIUM DISORDER WORKUP TODAY INCLUDES CBC, CMP, DILANTIN LEVEL, URINALYSIS, CT HEAD AND CERVICAL SPINE WITHOUT CONTRAST, EKG, CHEST X-RAY SHOWED urinalysis showed 11-20 white blood cells with 1+ leukocyte esterase 4+ bacteria and no squamous cells prior urine culture showed pansensitive Klebsiella the patient was started on Keflex Dilantin level was 15 <Valerio Blair MD - Last Filed: 08/19/24 00:24> Differential Diagnosis Differential diagnosis: Likely other ( ABOVE) <Jersey Granados MD - Last Filed: 08/18/24 22:04> Medical Records Attestation: I reviewed the patient's medical records. <Jersey Granados MD - Last Filed: 08/18/24 22:04> Lab Data Attestation: I reviewed the patient's lab results. <Jersey Granados MD - Last Filed: 08/18/24 22:04> Result diagrams: 08/18/24 21:07 08/18/24 21:07 <Jersey Granados MD - Last Filed: 08/18/24 22:04> Labs: Lab Results 08/18/24 08/18/24 08/18/24 Range/Units 21:05 21:07 22:04 WBC 5.4 (4.5-10.0) K/mm3 RBC 3.71 L (4.2-5.4) M/mm3 Hgb 12.6 (12.0-15.0) g/dL Hct 37.3 (37.0-47.0) % MCV 100.5 H (80-100) fl MCH 34.0 (26-34) pg MCHC 33.8 (32-36) g/dl RDW 13.5 (11.5-14.5) % Plt Count 221 (150-375) k/mm3 MPV 8.8 (7.4-10.4) fl Immature Gran % (Auto) 0.2 (0-0.5) % Neut % (Auto) 64.3 (45.5-73.1) % Lymph % (Auto) 22.4 (18.3-44.2) % [place] % (Auto) 9.8 H (2.6-8.5) % Eos % (Auto) 2.6 (0-4.4) % Baso % (Auto) 0.7 (0.2-1.2) % Lymph # (Auto) 1.21 (0.9-3.2) K/mm3 [place] # (Auto) 0.5 (0.1-0.6) K/mm3 Eos # (Auto) 0.1 (0-0.3) K/mm3 Baso # (Auto) 0.0 (0.0-0.1) K/mm3 Abs Immat Gran (auto) 0.01 (0.00-0.031) K/mm3 Absolute Neuts (auto) 3.5 (1.3-6.7) K/mm3 Absolute Nucleated RBC 0.000 (0.0-0.012) K/mm3 Nucleated RBC % 0.0 (0.0-0.2) % Sodium 140 (137-145) mmol/L Potassium 4.2 (3.4-5.0) mmol/L Chloride 102 (98-107) mmol/L Carbon Dioxide 33 H (22-30) mmol/L Anion Gap 5 (4-12) mmol/L BUN 28 H (7-17) mg/dL Creatinine 0.60 L (0.7-1.0) mg/dL Estim Creat Clear Calc 59 ml/min Estimated GFR > 60 (59 - ) Glucose 101 (65-110) mg/dL Calcium 9.5 (8.4-10.2) mg/dL Total Bilirubin 0.4 (0.2-1.3) mg/dL AST 48 H (14-36) U/L ALT 7 (6-35) U/L Alkaline Phosphatase 73 (38-126) U/L Total Protein 8.0 (6.3-8.2) g/dL Albumin 4.4 (3.5-5.1) g/dL Urine Color Yellow (Yellow) Urine Appearance Cloudy H (Clear) Urine pH 7.0 (5.0-9.0) Ur Specific [place] 1.018 (1.001-1.035) Urine Protein Negative (Negative) mg/dL Urine Glucose (UA) Negative (Negative) mg/dL Urine Ketones Negative (Negative) mg/dL Ur Blood (Man) Negative (Negative) Urine Nitrate Negative (Negative) Urine Bilirubin Negative (Negative) Urine Urobilinogen 0.2 (<2.0) mg/dL Add Ur Microanalysis Reviewed Leukocyte Esterase Rfl 1+ H (Negative) SOLEDAD/UL Urine RBC 6-10 H (0-2) /hpf Urine WBC 11-20 H (0-3) /hpf Ur Squamous Epith Cells None seen (Few) /hpf Urine Bacteria 4+ H /hpf Urine Casts 0-2 Hyaline Casts Present (None) /lpf Urine Mucus Present /lpf Phenytoin (10-20) ug/mL Free Phenytoin Cancelled 08/18/24 Range/Units 23:44 WBC (4.5-10.0) K/mm3 RBC (4.2-5.4) M/mm3 Hgb (12.0-15.0) g/dL Hct (37.0-47.0) % MCV (80-100) fl MCH (26-34) pg MCHC (32-36) g/dl RDW (11.5-14.5) % Plt Count (150-375) k/mm3 MPV (7.4-10.4) fl Immature Gran % (Auto) (0-0.5) % Neut % (Auto) (45.5-73.1) % Lymph % (Auto) (18.3-44.2) % [place] % (Auto) (2.6-8.5) % Eos % (Auto) (0-4.4) % Baso % (Auto) (0.2-1.2) % Lymph # (Auto) (0.9-3.2) K/mm3 [place] # (Auto) (0.1-0.6) K/mm3 Eos # (Auto) (0-0.3) K/mm3 Baso # (Auto) (0.0-0.1) K/mm3 Abs Immat Gran (auto) (0.00-0.031) K/mm3 Absolute Neuts (auto) (1.3-6.7) K/mm3 Absolute Nucleated RBC (0.0-0.012) K/mm3 Nucleated RBC % (0.0-0.2) % Sodium (137-145) mmol/L Potassium (3.4-5.0) mmol/L Chloride (98-107) mmol/L Carbon Dioxide (22-30) mmol/L Anion Gap (4-12) mmol/L BUN (7-17) mg/dL Creatinine (0.7-1.0) mg/dL Estim Creat Clear Calc ml/min Estimated GFR (59 - ) Glucose (65-110) mg/dL Calcium (8.4-10.2) mg/dL Total Bilirubin (0.2-1.3) mg/dL AST (14-36) U/L ALT (6-35) U/L Alkaline Phosphatase (38-126) U/L Total Protein (6.3-8.2) g/dL Albumin (3.5-5.1) g/dL Urine Color (Yellow) Urine Appearance (Clear) Urine pH (5.0-9.0) Ur Specific [place] (1.001-1.035) Urine Protein (Negative) mg/dL Urine Glucose (UA) (Negative) mg/dL Urine Ketones (Negative) mg/dL Ur Blood (Man) (Negative) Urine Nitrate (Negative) Urine Bilirubin (Negative) Urine Urobilinogen (<2.0) mg/dL Add Ur Microanalysis Leukocyte Esterase Rfl (Negative) SOLEDAD/UL Urine RBC (0-2) /hpf Urine WBC (0-3) /hpf Ur Squamous Epith Cells (Few) /hpf Urine Bacteria /hpf Urine Casts Hyaline Casts (None) /lpf Urine Mucus /lpf Phenytoin 15 (10-20) ug/mL Free Phenytoin <Jersey Granados MD - Last Filed: 08/18/24 22:04> Lab Results 08/18/24 08/18/24 08/18/24 Range/Units 21:05 21:07 22:04 WBC 5.4 (4.5-10.0) K/mm3 RBC 3.71 L (4.2-5.4) M/mm3 Hgb 12.6 (12.0-15.0) g/dL Hct 37.3 (37.0-47.0) % MCV 100.5 H (80-100) fl MCH 34.0 (26-34) pg MCHC 33.8 (32-36) g/dl RDW 13.5 (11.5-14.5) % Plt Count 221 (150-375) k/mm3 MPV 8.8 (7.4-10.4) fl Immature Gran % (Auto) 0.2 (0-0.5) % Neut % (Auto) 64.3 (45.5-73.1) % Lymph % (Auto) 22.4 (18.3-44.2) % [place] % (Auto) 9.8 H (2.6-8.5) % Eos % (Auto) 2.6 (0-4.4) % Baso % (Auto) 0.7 (0.2-1.2) % Lymph # (Auto) 1.21 (0.9-3.2) K/mm3 [place] # (Auto) 0.5 (0.1-0.6) K/mm3 Eos # (Auto) 0.1 (0-0.3) K/mm3 Baso # (Auto) 0.0 (0.0-0.1) K/mm3 Abs Immat Gran (auto) 0.01 (0.00-0.031) K/mm3 Absolute Neuts (auto) 3.5 (1.3-6.7) K/mm3 Absolute Nucleated RBC 0.000 (0.0-0.012) K/mm3 Nucleated RBC % 0.0 (0.0-0.2) % Sodium 140 (137-145) mmol/L Potassium 4.2 (3.4-5.0) mmol/L Chloride 102 (98-107) mmol/L Carbon Dioxide 33 H (22-30) mmol/L Anion Gap 5 (4-12) mmol/L BUN 28 H (7-17) mg/dL Creatinine 0.60 L (0.7-1.0) mg/dL Estim Creat Clear Calc 59 ml/min Estimated GFR > 60 (59 - ) Glucose 101 (65-110) mg/dL Calcium 9.5 (8.4-10.2) mg/dL Total Bilirubin 0.4 (0.2-1.3) mg/dL AST 48 H (14-36) U/L ALT 7 (6-35) U/L Alkaline Phosphatase 73 (38-126) U/L Total Protein 8.0 (6.3-8.2) g/dL Albumin 4.4 (3.5-5.1) g/dL Urine Color Yellow (Yellow) Urine Appearance Cloudy H (Clear) Urine pH 7.0 (5.0-9.0) Ur Specific [place] 1.018 (1.001-1.035) Urine Protein Negative (Negative) mg/dL Urine Glucose (UA) Negative (Negative) mg/dL Urine Ketones Negative (Negative) mg/dL Ur Blood (Man) Negative (Negative) Urine Nitrate Negative (Negative) Urine Bilirubin Negative (Negative) Urine Urobilinogen 0.2 (<2.0) mg/dL Add Ur Microanalysis Reviewed Leukocyte Esterase Rfl 1+ H (Negative) SOLEDAD/UL Urine RBC 6-10 H (0-2) /hpf Urine WBC 11-20 H (0-3) /hpf Ur Squamous Epith Cells None seen (Few) /hpf Urine Bacteria 4+ H /hpf Urine Casts 0-2 Hyaline Casts Present (None) /lpf Urine Mucus Present /lpf Phenytoin (10-20) ug/mL Free Phenytoin Cancelled 08/18/24 Range/Units 23:44 WBC (4.5-10.0) K/mm3 RBC (4.2-5.4) M/mm3 Hgb (12.0-15.0) g/dL Hct (37.0-47.0) % MCV (80-100) fl MCH (26-34) pg MCHC (32-36) g/dl RDW (11.5-14.5) % Plt Count (150-375) k/mm3 MPV (7.4-10.4) fl Immature Gran % (Auto) (0-0.5) % Neut % (Auto) (45.5-73.1) % Lymph % (Auto) (18.3-44.2) % [place] % (Auto) (2.6-8.5) % Eos % (Auto) (0-4.4) % Baso % (Auto) (0.2-1.2) % Lymph # (Auto) (0.9-3.2) K/mm3 [place] # (Auto) (0.1-0.6) K/mm3 Eos # (Auto) (0-0.3) K/mm3 Baso # (Auto) (0.0-0.1) K/mm3 Abs Immat Gran (auto) (0.00-0.031) K/mm3 Absolute Neuts (auto) (1.3-6.7) K/mm3 Absolute Nucleated RBC (0.0-0.012) K/mm3 Nucleated RBC % (0.0-0.2) % Sodium (137-145) mmol/L Potassium (3.4-5.0) mmol/L Chloride (98-107) mmol/L Carbon Dioxide (22-30) mmol/L Anion Gap (4-12) mmol/L BUN (7-17) mg/dL Creatinine (0.7-1.0) mg/dL Estim Creat Clear Calc ml/min Estimated GFR (59 - ) Glucose (65-110) mg/dL Calcium (8.4-10.2) mg/dL Total Bilirubin (0.2-1.3) mg/dL AST (14-36) U/L ALT (6-35) U/L Alkaline Phosphatase (38-126) U/L Total Protein (6.3-8.2) g/dL Albumin (3.5-5.1) g/dL Urine Color (Yellow) Urine Appearance (Clear) Urine pH (5.0-9.0) Ur Specific [place] (1.001-1.035) Urine Protein (Negative) mg/dL Urine Glucose (UA) (Negative) mg/dL Urine Ketones (Negative) mg/dL Ur Blood (Man) (Negative) Urine Nitrate (Negative) Urine Bilirubin (Negative) Urine Urobilinogen (<2.0) mg/dL Add Ur Microanalysis Leukocyte Esterase Rfl (Negative) SOLEDAD/UL Urine RBC (0-2) /hpf Urine WBC (0-3) /hpf Ur Squamous Epith Cells (Few) /hpf Urine Bacteria /hpf Urine Casts Hyaline Casts (None) /lpf Urine Mucus /lpf Phenytoin 15 (10-20) ug/mL Free Phenytoin <Valerio Blair MD - Last Filed: 08/19/24 00:24> Imaging Data Radiologist's impression: Impressions Chest X-Ray 08/18/24 21:02 IMPRESSION: 1. Streaky atelectasis/scarring at the left lung base and mild biapical pleural-parenchymal scarring. Head CT 08/18/24 21:28 IMPRESSION: 1. No fracture or acute intracranial process. 2. 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 3. Age-related changes including mild to moderate diffuse cerebral and cerebellar volume loss and moderate scattered white matter hypoattenuation consistent with chronic small vessel ischemic disease. 4. Bubbly mucus in the right maxillary sinus. Correlate for acute sinusitis. Cervical Spine CT 08/18/24 21:37 IMPRESSION: 1. Moderate cervical spondylosis. No acute osseous abnormality. <Jersey Granados MD - Last Filed: 08/18/24 22:04> Critical Care Time Critical Care Time Critical Care Time: No <Jersey Granados MD - Last Filed: 08/18/24 22:04> Discharge Plan Discharge Clinical Impression: Fall from ground level, Head injury <Jersey Granados MD - Last Filed: 08/18/24 22:04> Patient Disposition: NH Detention/Asst Living <Jersey Granados MD - Last Filed: 08/18/24 22:04> Condition: Stable <Jersey Granados MD - Last Filed: 08/18/24 22:04> Instructions: Antibiotic Form, Urinary Tract Infection in Women (ED), Head Injury (ED) <Jersey Granados MD - Last Filed: 08/18/24 22:04> Prescriptions: New cephalexin 500 mg capsule 500 mg PO Q12H 7 Days Qty: 14 0RF No Action cholecalciferol (vitamin D3) 25 mcg (1,000 unit) capsule 25 mcg PO DAILY sotalol 80 mg tablet 40 mg PO Q12HR carbidopa-levodopa 25-100 mg tablet See Rx Instructions .ROUTE .COMPLEX Rx Instructions: Take 1.5 tabs 3x daily. 1 pill at bedtime calcium carbonate-vitamin D3 [Calcium 600 with Vitamin D3] 600 mg-12.5 mcg (500 unit) capsule 1 cap PO BID mecobalamin (vitamin B12) 1,000 mcg Tablet,Disintegrating 1,000 mcg PO EVERY OTHER DAY Rx Instructions: Friday, Friday, Friday acetaminophen [Tylenol Extra Strength] 500 mg tablet 500 mg PO Q6H PRN (Reason: pain) Qty: 120 5RF docusate sodium 100 mg tablet 100 - 200 mg PO QHS Qty: 90 1RF fluticasone propionate [Flonase Allergy Relief] 50 mcg/actuation spray,suspension 2 spray intranasal DAILY Qty: 16 3RF Rx Instructions: administer into each nostril phenobarbital 30 mg tablet 30 mg PO TID Qty: 90 5RF phenytoin sodium extended [Dilantin Extended] 100 mg capsule 100 mg PO TID Qty: 90 5RF Patient Comments: PER PT CAN NOT TAKE GENERIC WILL BRING IN HOME MEDICATION levothyroxine 75 mcg tablet 75 mcg PO DAILY Qty: 30 5RF Eliquis 5 mg tablet 5 mg PO BID Qty: 60 5RF <Jersey Granados MD - Last Filed: 08/18/24 22:04> Follow-up/Referrals: Odell Kinney DO [Primary Care Provider] - <Jersey Granados MD - Last Filed: 08/18/24 22:04> Time of Disposition: 00:24 <Jersey Granados MD - Last Filed: 08/18/24 22:04> 00:24 <Valerio Blair MD - Last Filed: 08/19/24 00:24>
[2024-08-18 21:00] VITALS: BP 142/64; PULSE 66; RESP 18; O2SAT 99
[2024-08-18 21:12] LABS: Basophils Percent Auto 0.7 % (0.2-1.2); Eosinophils Absolute Auto 0.1 K/mm3 (0-0.3); Eosinophils Percent Auto 2.6 % (0-4.4); Hematocrit 37.3 % (37.0-47.0); Hemoglobin 12.6 g/dL (12.0-15.0); Immature Granulocyte Absolute 0.01 K/mm3 (0.00-0.031); Immature Granulocyte Percent A 0.2 % (0-0.5); Lymphocytes Absolute Auto 1.21 K/mm3 (0.9-3.2); Lymphocytes Percent Auto 22.4 % (18.3-44.2); Mean Corpuscular HGB Conc 33.8 g/dl (32-36); Mean Corpuscular Volume 100.5 fl (80-100); Mean Platelet Volume 8.8 fl (7.4-10.4); Monocytes Absolute Auto 0.5 K/mm3 (0.1-0.6); Monocytes Percent Auto 9.8 % (2.6-8.5); Neutrophils Absolute Auto 3.5 K/mm3 (1.3-6.7); Neutrophils Percent Auto 64.3 % (45.5-73.1); Platelet Count Result 221 k/mm3 (150-375); Red Blood Count 3.71 M/mm3 (4.2-5.4); Red Cell Distribution Width 13.5 % (11.5-14.5); White Blood Count 5.4 K/mm3 (4.5-10.0)
[2024-08-18 21:32] LABS: Alanine Aminotransferase 7 U/L (6-35); Albumin Level 4.4 g/dL (3.5-5.1); Alkaline Phosphatase 73 U/L (38-126); Anion Gap 5 mmol/L (4-12); Aspartate Amino Transferase 48 U/L (14-36); Bilirubin,Total 0.4 mg/dL (0.2-1.3); Blood Urea Nitrogen 28 mg/dL (7-17); Calcium 9.5 mg/dL (8.4-10.2); Carbon Dioxide 33 mmol/L (22-30); Chloride 102 mmol/L (98-107); Estimated CRCL calculation 59 ml/min; Estimated Glomerular Filt Rate > 60; Glucose 101 mg/dL (65-110); Potassium 4.2 mmol/L (3.4-5.0); Sodium 140 mmol/L (137-145)
[2024-08-18 22:26] LABS: Add Urine Microscopic? YES; Appearance Urine Cloudy (Clear); Bacteria Urine 4+ /hpf; Bilirubin Urine Negative (Negative); Blood Urine Negative (Negative); Color Urine Yellow (Yellow); Glucose Urine UA Negative (Negative); Hyaline Casts Urine Present /lpf; Ketones Urine Negative (Negative); Leukocyte Esterase Ur 1+ LEU/UL (Negative); Mucus Urine Present /lpf; Need Manual Microscopic Reviewed; Nitrate Urine Negative (Negative); Non Pathogenic Casts 0-2; Protein Urine Negative (Negative); Specific Grav Ur 1.018 (1.001-1.035); Squamous Epithelial Cell Urine None Seen /hpf (Few); Urobilinogen Urine 0.2 mg/dL (<2.0)
[2024-08-18 23:23] VITALS: BP 143/62; PULSE 78; RESP 18; TEMP 36.3; O2SAT 97
[2024-08-18 23:57] LABS: Phenytoin Dilantin 15 ug/mL (10-20)
[2024-08-19] MEDS: CEPHALEXIN 500 MG CAPSULE PO (01:31)
[2024-08-19 01:40] VITALS: BP 132/75; PULSE 78; RESP 16; O2SAT 99
== END 2024-08-19 01:41 ==
PROVIDERS: Emergency Medicine; Emergency Provider Emergency Medicine; PCP Internal Medicine
DX: S09.90XA Unspecified injury of head, initial encounter (principal); N39.0 Urinary tract infection, site not specified; I48.91 Unspecified atrial fibrillation; I10 Essential (primary) hypertension; G80.9 Cerebral palsy, unspecified; G40.909 Epilepsy, unspecified, not intractable, without status epilepticus; E03.9 Hypothyroidism, unspecified; E55.9 Vitamin D deficiency, unspecified; M16.12 Unilateral primary osteoarthritis, left hip; M17.0 Bilateral primary osteoarthritis of knee; R29.6 Repeated falls; Z96.611 Presence of right artificial shoulder joint; Z96.642 Presence of left artificial hip joint; Z86.711 Personal history of pulmonary embolism; Z90.710 Acquired absence of both cervix and uterus; W18.39XA Other fall on same level, initial encounter; M47.812 Spondylosis without myelopathy or radiculopathy, cervical region; R93.0 Abnormal findings on diagnostic imaging of skull and head, not elsewhere classified
CPT/HCPCS: 36415; 70450; 71045; 72125; 80053; 80185; 80186; 81001; 85025; 87086; 87181; 93005; 99284; A9270

== ENCOUNTER 2024-09-09 10:49 | Outpatient (CLI) | payer MEDICARE, MEDICAID, SELFPAY ==
--- NOTE | ~2024-09-09 | CT_ITS ---
CT head without contrast Indication: Headache COMPARISON: 08/18/2024 Technique: Serial scans were obtained through the brain without the administration of contrast. Dose reduction technique was used on this scan by utilizing automated exposure control and iterative recon struction technique. The dose-length product (DLP) was 605.33 mGy-cm. Findings: There is no evidence of intracranial hemorrhage, mass lesion, or acute infarct. Stable oyster picker kandace infarct adjacent to the atrium of the left lateral ventricle. Additional focal chronic lacunar in farct in the more superior left frontal lobe is also unchanged. The ventricles and subarachnoid space s are dilated, consistent with mild to moderate atrophy. Low attenuation regions are seen within the periventricular white matter bilaterally, likely representing changes from chronic microvascular isc hemic disease. There is no evidence of edema, mass effect or midline shift. There is left frontal si nus disease. The remaining visualized paranasal sinuses and mastoid air cells are clear. Impression: No intracranial hemorrhage, mass, or acute infarct. 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 Atrophy and chronic white matter changes, as above. Reviewed, dictated and finalized at location . O WORKER Impression: No intracranial hemorrhage, mass, or acute infarct. 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 Atrophy and chronic white matter changes, as above.
== END 2024-09-09 10:50 | disposition home or self-care (01) ==
LOC: ANHIMG 10:55
PROVIDERS: PCP Internal Medicine; Visit Provider Internal Medicine Cardiovascular Disease
DX: I63.522 Cerebral infarction due to unspecified occlusion or stenosis of left anterior cerebral artery (principal); G31.9 Degenerative disease of nervous system, unspecified; R90.82 White matter disease, unspecified; S19.9XXA Unspecified injury of neck, initial encounter; X58.XXXA Exposure to other specified factors, initial encounter
CPT/HCPCS: 70450

== ENCOUNTER 2024-10-09 10:24 | Inpatient (IN) | payer MEDICARE, OTHER, MEDICAID, SELFPAY ==
[2024-10-09] VITALS (32 sets, daily range): BP systolic 107–150; BP diastolic 56–95; PULSE 60–127; RESP 13–21; TEMP 36.2–36.6; O2SAT 93–100; BMI 22.6
--- NOTE | ~2024-10-09 | XR_ITS ---
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 RESULT: Lines, tubes, and devices: Incompletely visualized right shoulder hardware. Lungs and pleura: Clear. Right midlung granuloma. Senescent/emphysematous change. Cardiomediastinal silhouette: Stable. Other: No acute osseous or upper abdominal finding. IMPRESSION: No acute cardiopulmonary process. Reviewed, dictated and finalized at location K. AND HARDWARE OUTFITTER
--- NOTE | 2024-10-09 10:29 | ECG_ITS ---
Test Date: 2024-10-09 10:40:38 Measurements Intervals [place] Rate: 131 P: -58 MT: 128 QRS: 194 QRSD: 78 T: 156 QT: 307 QTc: 453 Interpretive Statements regular narrow complex tachycardia possible ectopic atrial for tachycardia versus atrial flutter limb lead misplacement Compared to ECG 08/18/2024 19:07:33 atrial tachycardia has replaced sinus rhythm lead misplacement is noted Electronically Signed On 10-09-2024 10:50:47 HOSPITAL PERSONNEL DIRECTOR by Cristopher Shea M.D.
--- NOTE | 2024-10-09 11:44 | ED.GENADULT ---
HPI - General Adult General Chief complaint: Dizziness Stated complaint: dizziness this morning, hx a fib and chf Time Seen by Provider: 10/09/24 11:20 History of Present Illness HPI narrative: 83-year-old female present to the emergency department for evaluation for lightheaded dizziness and heart palpitations. Patient does have a history of AFib with RVR and does take sotalol. Patient states that she has been eating and drinking well but woke up this morning and felt dizzy. Patient also felt that her heart rate was rapid. Patient denies any chest pain or shortness of breath with this. Patient did take her sotalol this morning. Patient follows up with Dr. Marin Related Data Home Medications ?Medication ?Instructions ?Recorded ?Confirmed ?Last Taken ?Type cholecalciferol (vitamin D3) 25 25 mcg PO DAILY 01/24/23 10/09/24 01/08/24 History mcg (1,000 unit) capsule calcium 600 mg (as 1 cap PO BID 11/29/23 10/09/24 01/08/24 History carbonate)-vitamin D3 12.5 mcg (500 unit) capsule (Calcium with Vit D3) mecobalamin (vitamin B12) 1,000 1,000 mcg PO EVERY OTHER DAY 02/10/24 04/26/24 Unknown History mcg disintegrating tablet,sublingual carbidopa 25 mg-levodopa 100 mg See Rx Instructions .Route .COMPLEX 04/26/24 10/09/24 10/08/24 History tablet sotalol 80 mg tablet 40 mg PO Q12HR 04/26/24 10/09/24 Unknown History Allergies Allergy/AdvReac Type Severity Reaction Status Date / Time iohexol (From contrast - CT, Allergy Itching Verified 08/18/24 19:24 X-RAY) Review of Systems Review of Systems: All systems reviewed & are unremarkable except as noted in HPI and below 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 Smoking status: Never smoker Second hand tobacco smoke exposure: No Alcohol intake: never Substance use: never Do You Feel Safe in your Home?: Yes Lack of Transportation: No Lack of Food: Never True Current Housing: I Have Housing Concerned About Future Housing: No Difficulty Paying Gas/Electric Bills: No Difficulty Paying for Meds: No Currently Unemployed: No Education: High School Diploma/GED Difficulty w/ Childcare or Family Care: No Living arrangements: alone Additional living arrangements comments: . Occupation/Education: retired Spiritual care concerns: Yes Exam Narrative: APPEARANCE: Well appearing, no pain, no distress, well-nourished. HEAD: normocephalic, atraumatic. EYES: PERRLA/EOMI, conjunctivae clear. NOSE: Normal no drainage EARS:TMS clear with good light reflex. THROAT: Pharynx clear, no exudate. NECK: Supple. No adenopathy, no masses. RESPIRATORY: Airway patent, respirations nonlabored. Clear to auscultation bilaterally, no rales, rhonchi, wheezing. CARDIOVASCULAR: AFib with RVR with heart rate in the 120 ABDOMINAL: Soft, nontender, nondistended, normal bowel sounds MUSCULOSKELETAL: Moves all extremities. Strength/ROM intact, No edema, No calf tenderness. NEURO: Alert. Cranial nerves II through XII intact. Good gait. Good coordination SKIN: Warm, dry. Normal Color Course Vital Signs Vital signs: Vital Signs Temperature 97.2 F L 10/09/24 10:29 Pulse Rate 121 H 10/09/24 10:29 Respiratory Rate 20 01/18/25 10:29 Blood Pressure 123/76 10/09/24 10:29 Pulse Oximetry 98 10/09/24 10:29 Temperature 97.2 F L 10/09/24 10:29 Pulse Rate 64 10/09/24 17:45 Respiratory Rate 17 10/09/24 17:45 Blood Pressure 115/71 10/09/24 17:45 Pulse Oximetry 97 10/09/24 17:45 Medical Decision Making MDM Narrative Medical decision making narrative: 83-year-old female presents emergency department for evaluation for rapid heart rate. Patient does have a history of paroxysmal AFib and previous cardioversion. Patient denies any chest pain but states she can feel that her heart rate is increased. Upon arrival emergency department patient's heart rate was in the 120s to 130s. Patient was treated with a L of IV fluid also started on metoprolol. Patient was also started on Cardizem. Case was discussed with hospitalist patient was accepted for admission to the IMU with the plan for potential cardioversion. Prior to going to the floor patient did have conversion back to normal sinus rhythm. Differential Diagnosis Differential Diagnosis: AFib with RVR, paroxysmal, ACS Vital Signs Vital Signs: Vital Signs Temperature 97.2 F L 10/09/24 10:29 Pulse Rate 121 H 10/09/24 10:29 Respiratory Rate 20 10/09/24 10:29 Blood Pressure 123/76 10/09/24 10:29 Pulse Oximetry 98 10/09/24 10:29 Temperature 97.2 F L 10/09/24 10:29 Pulse Rate 64 10/09/24 17:45 Respiratory Rate 17 10/09/24 17:45 Blood Pressure 115/71 10/09/24 17:45 Pulse Oximetry 97 10/09/24 17:45 Lab Data Lab results reviewed: Yes I reviewed the patient's lab results. 10/09/24 12:02 10/09/24 12:02 Labs: Lab Results 10/09/24 10/09/24 Range/Units 12:02 13:05 WBC 5.1 (4.5-10.0) K/mm3 RBC 4.30 (4.2-5.4) M/mm3 Hgb 14.4 (12.0-15.0) g/dL Hct 42.2 (37.0-47.0) % MCV 98.1 (80-100) fl MCH 33.5 (26-34) pg MCHC 34.1 (32-36) g/dl RDW 13.1 (11.5-14.5) % Plt Count 202 (150-375) k/mm3 MPV 9.1 (7.4-10.4) fl Immature Gran % (Auto) 0.2 (0-0.5) % Neut % (Auto) 64.4 (45.5-73.1) % Lymph % (Auto) 24.7 (18.3-44.2) % [place] % (Auto) 7.2 (2.6-8.5) % Eos % (Auto) 2.5 (0-4.4) % Baso % (Auto) 1.0 (0.2-1.2) % Lymph # (Auto) 1.26 (0.9-3.2) K/mm3 [place] # (Auto) 0.4 (0.1-0.6) K/mm3 Eos # (Auto) 0.1 (0-0.3) K/mm3 Baso # (Auto) 0.1 (0.0-0.1) K/mm3 Abs Immat Gran (auto) 0.01 (0.00-0.031) K/mm3 Absolute Neuts (auto) 3.3 (1.3-6.7) K/mm3 Absolute Nucleated RBC 0.000 (0.0-0.012) K/mm3 Nucleated RBC % 0.0 (0.0-0.2) % PT 15.3 H (11.1-14.7) Seconds INR 1.2 APTT 28.4 (22.3-36.8) Seconds Sodium 140 (137-145) mmol/L Potassium 4.2 (3.4-5.0) mmol/L Chloride 104 (98-107) mmol/L Carbon Dioxide 28 (22-30) mmol/L Anion Gap 8 (4-12) mmol/L BUN 24 H (7-17) mg/dL Creatinine 0.62 L (0.7-1.0) mg/dL Estim Creat Clear Calc Not Reportable Estimated GFR > 60 (59 - ) Glucose 105 (65-110) mg/dL Calcium 9.6 (8.4-10.2) mg/dL Total Bilirubin 0.5 (0.2-1.3) mg/dL AST 26 (14-36) U/L ALT 20 (6-35) U/L Alkaline Phosphatase 65 (38-126) U/L Total Protein 8.0 (6.3-8.2) g/dL Albumin 4.3 (3.5-5.1) g/dL Urine Color Yellow (Yellow) Urine Appearance Clear (Clear) Urine pH 7.0 (5.0-9.0) Ur Specific [place] 1.009 (1.001-1.035) Urine Protein Negative (Negative) mg/dL Urine Glucose (UA) Negative (Negative) mg/dL Urine Ketones Negative (Negative) mg/dL Ur Blood (Man) Negative (Negative) Urine Nitrate Negative (Negative) Urine Bilirubin Negative (Negative) Urine Urobilinogen 0.2 (<2.0) mg/dL Leukocyte Esterase Rfl Negative (Negative) SOLEDAD/UL Critical Care Time Critical Care Time Critical Care Time: Yes Total Critical Care Time: 35 Discharge Plan Discharge Clinical Impression: Atrial fibrillation with rapid ventricular response Patient Disposition: Still a Patient Condition: Serious
[2024-10-09] MEDS: SODIUM CHLORIDE 0.9% IV 1,000 ML 500 ML IV CONT (12:02)
[2024-10-09] MEDS: METOPROLOL TARTRATE INJ 5 MG/5 ML VIAL IV PUSH (12:05)
[2024-10-09 12:07] LABS: Basophils Absolute Auto 0.1 K/mm3 (0.0-0.1); Eosinophils Absolute Auto 0.1 K/mm3 (0-0.3); Eosinophils Percent Auto 2.5 % (0-4.4); Hematocrit 42.2 % (37.0-47.0); Hemoglobin 14.4 g/dL (12.0-15.0); Immature Granulocyte Absolute 0.01 K/mm3 (0.00-0.031); Immature Granulocyte Percent A 0.2 % (0-0.5); Lymphocytes Absolute Auto 1.26 K/mm3 (0.9-3.2); Lymphocytes Percent Auto 24.7 % (18.3-44.2); Mean Corpuscular HGB Conc 34.1 g/dl (32-36); Mean Corpuscular Hemoglobin 33.5 pg (26-34); Mean Corpuscular Volume 98.1 fl (80-100); Mean Platelet Volume 9.1 fl (7.4-10.4); Monocytes Absolute Auto 0.4 K/mm3 (0.1-0.6); Monocytes Percent Auto 7.2 % (2.6-8.5); Neutrophils Absolute Auto 3.3 K/mm3 (1.3-6.7); Neutrophils Percent Auto 64.4 % (45.5-73.1); Platelet Count Result 202 k/mm3 (150-375); Red Cell Distribution Width 13.1 % (11.5-14.5); White Blood Count 5.1 K/mm3 (4.5-10.0)
[2024-10-09 12:19] LABS: Alanine Aminotransferase 20 U/L (6-35); Albumin Level 4.3 g/dL (3.5-5.1); Alkaline Phosphatase 65 U/L (38-126); Anion Gap 8 mmol/L (4-12); Aspartate Amino Transferase 26 U/L (14-36); Bilirubin,Total 0.5 mg/dL (0.2-1.3); Blood Urea Nitrogen 24 mg/dL (7-17); Calcium 9.6 mg/dL (8.4-10.2); Carbon Dioxide 28 mmol/L (22-30); Chloride 104 mmol/L (98-107); Estimated Glomerular Filt Rate > 60; Glucose 105 mg/dL (65-110); Potassium 4.2 mmol/L (3.4-5.0); Sodium 140 mmol/L (137-145)
[2024-10-09 12:22] LABS: INR 1.2; Partial Thromboplastin Time 28.4 Seconds (22.3-36.8); Prothrombin Time 15.3 Seconds (11.1-14.7)
--- NOTE | 2024-10-09 13:05 | PM.IMHP ---
H&P: HPI History of Present Illness Date/Time: 10/09/24 13:05 Chief Complaint: Heart racing and dizzy. Narrative: This is an 83-year-old female with paroxysmal atrial fibrillation on chronic anticoagulation, pulmonary embolism, hypertension, hypothyroidism, cerebral palsy, Parkinson's, and seizure disorder who presented to the emergency department for evaluation of dizziness and racing heart. The patient provides the following history. She got up around 04:00 to use the restroom and at that time she was extremely dizzy which she further qualifies as vertigo. She made back to bed and was able to fall back to sleep however when she got up for good for the day she was still feeling dizzy and also had notice her heart was racing. She took her blood pressure which was normal but her heart rate was in the 150s and she came in for evaluation. She is on sotalol at home and does report that she took that this morning. At the time my evaluation she has no feelings of vertigo or dizziness and she denies fever, chills, sweats, cold and flu symptoms, chest pain, pleuritic pain, palpitations, shortness of breath, cough, nausea, vomiting, diarrhea, dysuria, lower extremity edema, and calf pain. In the ED: She was in rapid atrial fibrillation on arrival with stable blood pressures. CMP and CBC were pretty unremarkable though her BUN was slightly elevated 24. Urinalysis was unremarkable. EKG showed regular narrow complex tachycardia, possibly ectopic atrial tachycardia versus atrial flutter with no significant ST T-wave abnormalities. She received metoprolol tartrate 5 mg IV without much improvement and was started on a diltiazem drip. Just prior to transfer to IMU she converted to a sinus rhythm and she is being admitted overnight for close monitoring. Review of Systems Review of Systems: 12 systems were reviewed and are negative except for as per HPI. 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 Seizure disorder Surgical History Surgical History Status post total hip replacement, 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 Code status: Full code. Smoking status: Never smoker Second hand tobacco smoke exposure: No Alcohol intake: never Substance use: never Substance use type: does not use Do You Feel Safe in your Home?: Yes Lack of Transportation: No Lack of Food: Never True Current Housing: I Have Housing Concerned About Future Housing: No Difficulty Paying Gas/Electric Bills: No Difficulty Paying for Meds: No Currently Unemployed: No Education: Trade/Vocational Certificate Difficulty w/ Childcare or Family Care: No Living arrangements: assisted living Additional living arrangements comments: . Occupation/Education: retired Spiritual care concerns: No Meds Home Medications and Allergies Home Medications ?Medication ?Instructions ?Recorded ?Confirmed ?Type acetaminophen 500 mg tablet 500 mg PO Q6H PRN pain #120 tabs 04/18/22 10/09/24 Rx (Tylenol Extra Strength) docusate sodium 100 mg tablet 100 - 200 mg (1 - 2 x 100 mg) PO 04/18/22 04/26/24 Rx QHS #90 tabs cholecalciferol (vitamin D3) 25 25 mcg PO DAILY 01/24/23 10/09/24 History mcg (1,000 unit) capsule calcium 600 mg (as 1 cap PO BID 11/29/23 10/09/24 History carbonate)-vitamin D3 12.5 mcg (500 unit) capsule (Calcium with Vit D3) fluticasone propionate 50 2 spray intranasal DAILY #16 grams 02/06/24 04/26/24 Rx mcg/actuation nasal spray,suspension (Flonase Allergy Relief) mecobalamin (vitamin B12) 1,000 1,000 mcg PO EVERY OTHER DAY 02/10/24 04/26/24 History mcg disintegrating tablet,sublingual Dilantin Extended 100 mg capsule 100 mg PO TID #90 caps 04/26/24 10/09/24 Rx (phenytoin sodium extended) carbidopa 25 mg-levodopa 100 mg See Rx Instructions .Route .COMPLEX 04/26/24 10/09/24 History tablet sotalol 80 mg tablet 40 mg PO Q12HR 04/26/24 10/09/24 History apixaban 5 mg tablet (Eliquis) 5 mg PO BID #60 tabs 07/19/24 10/09/24 Rx levothyroxine 75 mcg tablet 75 mcg PO DAILY #30 tabs 07/19/24 10/09/24 Rx cephalexin 500 mg capsule 500 mg PO Q12H 7 days #14 caps 08/19/24 Rx phenobarbital 30 mg tablet 30 mg PO TID #90 tabs 09/30/24 10/09/24 Rx Allergies Allergy/AdvReac Type Severity Reaction Status Date / Time iohexol (From contrast - CT, Allergy Itching Verified 08/18/24 19:24 X-RAY) Vital Signs Vital Signs - 24 hr 10/09/24 10:29 10/09/24 11:38 10/09/24 12:01 Temperature 97.2 F L Pulse Rate 121 H 127 H 121 H Respiratory Rate 20 14 17 Blood Pressure 123/76 128/77 Pulse Oximetry 98 98 98 10/09/24 12:05 10/09/24 12:13 10/09/24 12:16 Temperature Pulse Rate 118 H 123 H 112 H Respiratory Rate 21 H 13 Blood Pressure 127/84 107/80 Pulse Oximetry 99 98 10/09/24 12:31 10/09/24 12:46 Temperature Pulse Rate 125 H 117 H Respiratory Rate 19 18 Blood Pressure 123/80 129/57 L Pulse Oximetry 96 99 Exam Narrative: General: Well-developed elderly female supine in bed in no distress. Weight: 58.1 kg. BMI: 22.7. HEENT: Pupils reactive. Extraocular motions intact. Moist mucous membranes. Neck: Supple. No JVD. Respiratory: Lungs are clear to auscultation bilaterally. Cardiovascular: Regular rate and rhythm with S1-S2. Gastrointestinal: Abdomen is soft, nontender, and nondistended with positive bowel sounds. Skin: Warm and dry. No rash or lesions on limited exam. Extremities: No cyanosis, clubbing, or significant edema. Radial and pedal pulses intact. Neurological: Alert. Cranial nerves 2-12 are grossly intact. Some weakness on the right side which is chronic. Psychiatric: Pleasant and cooperative with normal mood and affect. H&P: Results Labs Labs: Short CBC 10/09/24 Range/Units 12:02 WBC 5.1 (4.5-10.0) K/mm3 Hgb 14.4 (12.0-15.0) g/dL Hct 42.2 (37.0-47.0) % Plt Count 202 (150-375) k/mm3 BMP 10/09/24 12:02 Sodium 140 Potassium 4.2 Chloride 104 Carbon Dioxide 28 BUN 24 H Creatinine 0.62 L Glucose 105 Calcium 9.6 Liver Function 10/09/24 Range/Units 12:02 Total Bilirubin 0.5 (0.2-1.3) mg/dL AST 26 (14-36) U/L ALT 20 (6-35) U/L Alkaline Phosphatase 65 (38-126) U/L Albumin 4.3 (3.5-5.1) g/dL Assessment and Plan Assessment and plan (1) Atrial flutter with rapid ventricular response: Code(s): I48.92 - Unspecified atrial flutter Status: Chronic (2) Chronic anticoagulation: Code(s): Z79.01 - terminal computer operator (current) use of anticoagulants Status: Acute (3) Hypothyroidism: Qualifiers: Hypothyroidism type: unspecified Qualified Code(s): E03.9 - Hypothyroidism, unspecified Code(s): E03.9 - Hypothyroidism, unspecified Status: Chronic (4) Hypertension: Qualifiers: Hypertension type: essential hypertension Qualified Code(s): I10 - Essential (primary) hypertension Code(s): I10 - Essential (primary) hypertension Status: Chronic Plan The patient presented to the emergency department for evaluation of vertigo and racing heart as detailed in HPI. Labs, imaging, EKG, and all reports were personally reviewed. She was in rapid atrial fibrillation on arrival and has since converted to normal sinus rhythm on a diltiazem drip. Continue sotalol apixaban for stroke prophylaxis. She will be monitored overnight to ensure that her rate remains stable. Regarding the vertigo, this was transient and has resolved and may have been rate related. Blood pressures were reviewed and they are stable. Continue levothyroxine and check TSH. Check phenytoin and phenobarbital levels as well. The rest of her home medications will be reviewed and resumed as appropriate. Findings and treatment plan were discussed with the patient. Questions were solicited and answered to satisfaction. The patient's medical management will be taken over by the hospitalist team in a.m. Quality VTE Prophylaxis VTE prophylaxis: pharmacologic ordered (on apixaban) The patient has been admitted under observation status. Hospitalist MIPS Advance Care Plan I have confirmed that the patient's Advanced Care Plan is present, code status is documented, or surrogate decision maker is listed in patient medical record.: Yes Medication Reconciliation I have utilized all available resources to obtain, update and review the patients current medications (includes all prescriptions, OTC, herbals, cannabis, and nutritional supplements).: Yes
[2024-10-09 13:22] LABS: Add Urine Microscopic? NO; Appearance Urine Clear (Clear); Bilirubin Urine Negative (Negative); Blood Urine Negative (Negative); Color Urine Yellow (Yellow); Glucose Urine UA Negative (Negative); Ketones Urine Negative (Negative); Leukocyte Esterase Ur Negative LEU/UL (Negative); Nitrate Urine Negative (Negative); Protein Urine Negative (Negative); Specific Grav Ur 1.009 (1.001-1.035); Urobilinogen Urine 0.2 mg/dL (<2.0)
[2024-10-09] MEDS: dilTIAZem HCl INJ 25 MG/5 ML VIAL 10 MG IV PUSH (13:57)
[2024-10-09] MEDS: dilTIAZem 100 MG/100 ML 100 MG/100 ML BAG IV CONT (13:58)
--- NOTE | 2024-10-09 14:38 | PC.NURSE ---
pt eating chili and a cookie as requested
[2024-10-09] MEDS: CARBIDOPA/LEVODOPA 25/100 MG TABLET 1 TABLET PO (15:09)
--- NOTE | 2024-10-09 15:31 | PC.NURSE ---
stopped pt Diltiazem drip per Dr. Brandt OROZCO due to heart rate being between 65-80bpm.
--- NOTE | 2024-10-09 19:33 | PC.NURSE ---
care and report given to JESSE Victoria. all questions answered.
--- NOTE | 2024-10-09 20:50 | ADMGEN ---
This patient, Maame Frias, was admitted to Medical Room 345-01. Patient/family oriented to hospital policies and general routines including ID bracelet, bed and alarms, visiting hours, pain management, procedures, bathroom and other care routines, personal items, smoking policy, room service/diet, and visiting hours. Information on how to activate the Rapid Response Team has been discussed. Patient/Family are encouraged to report perceived risks to care and to ask questions if they do not understand what they are told or what they should do.
--- NOTE | 2024-10-09 22:26 | PHAR ---
[facility] RX [id number] IDENTIFIED TO CONTAIN Drug Name:?Dilantin Ingredients: PHENYTOIN 100MG Color:?[place] White ,?White Imprint:??PD DILANTIN 100mg Imprint Code Description:?This capsule is imprinted with PD on the cap and DILANTIN over 100mg on the body
[2024-10-09] MEDS: SOTALOL HCL 40 MG TABLET PO (22:47)
[2024-10-09] MEDS: APIXABAN 5 MG TABLET PO (22:48)
[2024-10-09] MEDS: PHENobarbitaL (*CRX) 30 MG TABLET PO (22:48)
[2024-10-09] MEDS: CARBIDOPA/LEVODOPA 25/100 MG TABLET 1 TABLET BY MOUTH (22:48)
[2024-10-10] VITALS (9 sets, daily range): BP systolic 130–171; BP diastolic 64–71; PULSE 59–79; RESP 16–20; TEMP 36.1–36.5; O2SAT 98–99
[2024-10-10 06:05] LABS: Anion Gap 5 mmol/L (4-12); Blood Urea Nitrogen 30 mg/dL (7-17); Calcium 9.3 mg/dL (8.4-10.2); Carbon Dioxide 29 mmol/L (22-30); Chloride 109 mmol/L (98-107); Estimated CRCL calculation 48 ml/min; Estimated Glomerular Filt Rate > 60; Glucose 96 mg/dL (65-110); Magnesium 1.8 mg/dL (1.6-2.3); Sodium 143 mmol/L (137-145)
[2024-10-10] MEDS: LEVOTHYROXINE SODIUM 75 MCG TABLET PO (06:06)
[2024-10-10 06:11] LABS: Phenytoin Dilantin 5 ug/mL (10-20)
[2024-10-10] MEDS: CALCIUM/VITAMIN D 500 MG/5 MCG (200 I.U.) TABLET PO ×2 (08:45→16:34)
[2024-10-10] MEDS: CHOLECALCIFEROL 1,000 UNITS TABLET 1000 UNITS PO (08:45)
[2024-10-10] MEDS: PHENobarbitaL (*CRX) 30 MG TABLET PO ×3 (08:45→16:34)
[2024-10-10] MEDS: CARBIDOPA/LEVODOPA 25/100 MG TABLET 1 TABLET BY MOUTH ×2 (08:45→16:34)
[2024-10-10] MEDS: APIXABAN 5 MG TABLET PO ×2 (08:45→20:00)
[2024-10-10] MEDS: SOTALOL HCL 40 MG TABLET PO ×2 (08:45→20:00)
[2024-10-10] MEDS: DILANTIN 100 MG 1 EACH BY MOUTH ×2 (08:46→16:35)
--- NOTE | 2024-10-10 11:37 | P.PNIM_ITS ---
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 She was in rapid atrial fibrillation on arrival and has since converted to normal sinus rhythm on a diltiazem drip. Continue sotalol apixaban for stroke prophylaxis. She will be monitored overnight to ensure that her rate remains stable. Regarding the vertigo, this was transient and has resolved and may have been rate related. Blood pressures were reviewed and they are stable. Continue levothyroxine and check TSH- 1.810 -wnl Check phenytoin and phenobarbital levels as well. Time Spent With Patient Time with patient: 25 - 35 minutes Subjective Date/time seen: 10/10/24 11:37 Interval history: Narrative retrieved from H/P: This is an 83-year-old female with paroxysmal atrial fibrillation on chronic anticoagulation, pulmonary embolism, hypertension, hypothyroidism, cerebral palsy, Parkinson's, and seizure disorder who presented to the emergency department for evaluation of dizziness and racing heart. The patient provides the following history. She got up around 04:00 to use the restroom and at that time she was extremely dizzy which she further qualifies as vertigo. She made back to bed and was able to fall back to sleep however when she got up for good for the day she was still feeling dizzy and also had notice her heart was racing. She took her blood pressure which was normal but her heart rate was in the 150s and she came in for evaluation. She is on sotalol at home and does report that she took that this morning. At the time my evaluation she has no feelings of vertigo or dizziness and she denies fever, chills, sweats, cold and flu symptoms, chest pain, pleuritic pain, palpitations, shortness of breath, cough, nausea, vomiting, diarrhea, dysuria, lower extremity edema, and calf pain. In the ED: She was in rapid atrial fibrillation on arrival with stable blood pressures. CMP and CBC were pretty unremarkable though her BUN was slightly elevated 24. Urinalysis was unremarkable. EKG showed regular narrow complex tachycardia, possibly ectopic atrial tachycardia versus atrial flutter with no significant ST T-wave abnormalities. She received metoprolol tartrate 5 mg IV without much improvement and was started on a diltiazem drip. Just prior to transfer to IMU she converted to a sinus rhythm and she is being admitted overnight for close monitoring. Pt is seen and examined. She reports no chest pain, no sob. She is very weak and absolutely doesn't want to go home until she works with PT/OT Review of Systems Review of Systems: 12 systems were reviewed and are negativ e except for as per HPI. Constitutional: Comments: reports generalized weakness Cardiovascular: Cardiovascular: Denies chest pain Respiratory: Respiratory: Reports chest congestion Comments: had been battling URI for a while Gastrointestinal: Gastrointestinal: Denies abdominal pain Musculoskeletal: Musculoskeletal: Denies back pain Exam Narrative: General: Well-developed elderly female supine in bed in no distress. Weight: 58.1 kg. BMI: 22.7. HEENT: Pupils reactive. Extraocular motions intact. Moist mucous membranes. Neck: Supple. No JVD. Respiratory: Lungs are clear to auscultation bilaterally. Cardiovascular: Regular rate and rhythm with S1-S2. Gastrointestinal: Abdomen is soft, nontender, and nondistended with positive bowel sounds. Skin: Warm and dry. No rash or lesions on limited exam. Extremities: No cyanosis, clubbing, or significant edema. Radial and pedal pulses intact. Neurological: Alert. Cranial nerves 2-12 are grossly intact. Some weakness on the right side which is chronic. Psychiatric: Pleasant and cooperative with normal mood and affect. Objective Data Vital Signs Vital Signs: Vital Signs - 24 hr 10/09/24 11:38 10/09/24 12:01 10/09/24 12:05 Temperature Pulse Rate 127 H 121 H 118 H Respiratory Rate 14 17 Blood Pressure 128/77 Pulse Oximetry 98 98 Oxygen Delivery 10/09/24 12:13 10/09/24 12:16 10/09/24 12:31 Temperature Pulse Rate 123 H 112 H 125 H Respiratory Rate 21 H 13 19 Blood Pressure 127/84 107/80 123/80 Pulse Oximetry 99 98 96 Oxygen Delivery 10/09/24 12:46 10/09/24 12:47 10/09/24 13:30 Temperature Pulse Rate 117 H 110 H Respiratory Rate 18 14 Blood Pressure 129/57 L 149/95 H Pulse Oximetry 99 98 Oxygen Delivery 10/09/24 13:58 10/09/24 14:30 10/09/24 14:31 Temperature Pulse Rate 122 H 122 H 92 Respiratory Rate 14 20 Blood Pressure 150/65 H 122/90 Pulse Oximetry 98 93 Oxygen Delivery 10/09/24 14:45 10/09/24 14:46 10/09/24 15:01 Temperature Pulse Rate 110 H 98 108 H Respiratory Rate 16 17 21 H Blood Pressure 137/81 117/72 Pulse Oximetry 97 97 95 Oxygen Delivery 10/09/24 15:02 10/09/24 15:17 10/09/24 15:29 Temperature Pulse Rate 105 H 99 71 Respiratory Rate 18 18 Blood Pressure 122/66 122/66 Pulse Oximetry 97 95 Oxygen Delivery 10/09/24 15:29 10/09/24 15:30 10/09/24 15:32 Temperature Pulse Rate 71 66 63 Respiratory Rate 18 17 Blood Pressure 122/66 114/67 Pulse Oximetry 97 97 Oxygen Delivery 10/09/24 15:45 10/09/24 16:15 10/09/24 16:45 Temperature Pulse Rate 64 62 60 Respiratory Rate 18 16 15 Blood Pressure 110/66 112/67 110/61 Pulse Oximetry 96 96 96 Oxygen Delivery 10/09/24 17:15 10/09/24 17:45 10/09/24 18:28 Temperature Pulse Rate 65 64 65 Respiratory Rate 13 17 Blood Pressure 120/67 115/71 113/72 Pulse Oximetry 99 97 Oxygen Delivery 10/09/24 18:30 10/09/24 18:31 10/09/24 19:46 Temperature Pulse Rate 81 64 73 Respiratory Rate 17 13 Blood Pressure 126/68 116/70 127/74 Pulse Oximetry 97 97 Oxygen Delivery 10/09/24 20:22 10/09/24 21:03 10/09/24 22:47 Temperature 97.9 F Pulse Rate 80 73 Respiratory Rate 18 Blood Pressure 141/56 H Pulse Oximetry 100 Oxygen Delivery Room Air 10/10/24 00:00 10/10/24 04:00 10/10/24 06:00 Temperature 97.7 F Pulse Rate 64 72 65 Respiratory Rate 16 Blood Pressure 130/71 Pulse Oximetry 98 Oxygen Delivery 10/10/24 08:45 Temperature Pulse Rate 59 L Respiratory Rate Blood Pressure Pulse Oximetry Oxygen Delivery Intake/Output Intake/Output: Intake & Output 10/07/24 10/08/24 10/09/24 10/10/24 23:59 23:59 23:59 23:59 Intake Total 1007.6 290 Balance 1007.6 290 Meds/Results Medications: Active Medications Generic Name Dose Route Start Last Admin Trade Name Freq PRN Reason Stop Dose Admin Acetaminophen 650 mg 10/09/24 14:33 Acetaminophen 325 Mg Tablet PO Q6H PRN Mild Pain (1-3) or Fever Apixaban 5 mg 10/09/24 22:05 10/10/24 08:45 Apixaban 5 Mg Tablet PO 5 mg Q12HR MANN Administration Calcium Carbonate 500 mg 10/10/24 09:00 10/10/24 08:45 Calcium/Vitamin D 500 Mg/5 Mcg (200 I.U.) Tablet PO 500 mg BID MANN Administration Carbidopa/Levodopa 1 tablet 10/09/24 22:05 10/10/24 08:45 Carbidopa/Levodopa 25/100 Mg Tablet BY MOUTH 1 tablet QID MANN Administration Furosemide 20 mg 10/10/24 09:00 10/10/24 09:00 Furosemide 20 Mg Tablet PO Not Given DAILY [facility] Levothyroxine Sodium 75 mcg 10/10/24 06:30 10/10/24 06:06 Levothyroxine Sodium 75 Mcg Tablet PO 75 mcg DAILY@0630 MANN Administration Home Med Dilantin 1 each 10/10/24 09:00 10/10/24 08:46 100 Mg Extended BY MOUTH 11/09/24 08:59 1 each Release Cap (Brand) TID MANN Administration Phenobarbital 30 mg 10/09/24 22:05 10/10/24 08:45 Phenobarbital (*Crx) 30 Mg Tablet PO 30 mg TID MANN Administration Sotalol HCl 40 mg 10/09/24 22:05 10/10/24 08:45 Sotalol Hcl 40 Mg Tablet PO 40 mg Q12HR MANN Administration Vitamin D 1,000 units 01/19/25 09:00 10/10/24 08:45 Cholecalciferol 1,000 Units Tablet PO 1,000 units DAILY MANN Administration Radiology Results: ITS Impressions Chest X-Ray 10/09/24 15:05 IMPRESSION: No acute cardiopulmonary process. Labs Labs: Laboratory Results - last 24 hr 10/09/24 10/09/24 10/10/24 12:02 13:05 05:38 WBC 5.1 RBC 4.30 Hgb 14.4 Hct 42.2 MCV 98.1 MCH 33.5 MCHC 34.1 RDW 13.1 Plt Count 202 MPV 9.1 Immature Gran % (Auto) 0.2 Neut % (Auto) 64.4 Lymph % (Auto) 24.7 Yell % (Auto) 7.2 Eos % (Auto) 2.5 Baso % (Auto) 1.0 Lymph # (Auto) 1.26 Yell # (Auto) 0.4 Eos # (Auto) 0.1 Baso # (Auto) 0.1 Abs Immat Gran (auto) 0.01 Absolute Neuts (auto) 3.3 Absolute Nucleated RBC 0.000 Nucleated RBC % 0.0 PT 15.3 H INR 1.2 APTT 28.4 Sodium 140 143 Potassium 4.2 4.0 Chloride 104 109 H Carbon Dioxide 28 29 Anion Gap 8 5 BUN 24 H 30 H Creatinine 0.62 L 0.62 L Estim Creat Clear Calc Not Reportable 48 Estimated GFR > 60 > 60 Glucose 105 96 Calcium 9.6 9.3 Magnesium 1.8 Total Bilirubin 0.5 AST 26 ALT 20 Alkaline Phosphatase 65 Total Protein 8.0 Albumin 4.3 TSH (Reflex) 1.810 Urine Color Yellow Urine Appearance Clear Urine pH 7.0 Ur Specific [place] 1.009 Urine Protein Negative Urine Glucose (UA) Negative Urine Ketones Negative Ur Blood (Man) Negative Urine Nitrate Negative Urine Bilirubin Negative Urine Urobilinogen 0.2 Leukocyte Esterase Rfl Negative Phenytoin 5 L Quality VTE Prophylaxis VTE prophylaxis: pharmacologic ordered (on apixaban)
--- NOTE | 2024-10-10 17:48 | PM.CNCAR ---
Assessment and Plan Assessment and plan (1) Atrial fibrillation with rapid ventricular response: Code(s): I48.91 - Unspecified atrial fibrillation Status: Acute Plan Paroxysmal atrial flutter currently in sinus rhythm Plan Continue sotalol Continue apixaban 5 mg b.i.d. Serum TSH level Follow up with electrophysiology in the clinic and if AFib is recurrent she may benefit from ablation procedure Follow up in the clinic with cardiology Cardiology will sign off History of Present Illness History of Present Illness Consult date/time: 10/10/24 17:48 Reason For Visit: AFib with RVR Narrative: 83-year-old female elevation presented to the hospital with acute episode of palpitation. Started acutely this morning associated with dizziness. She has history of atrial fibrillation in the past in last episode of atrial fibrillation was January 2024. She has prior history of cardioversion for atrial fibrillation. she spontaneously converted to sinus rhythm on admission. She feels good today no recurrent episodes of dizziness. 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 Code status: Full code. Smoking status: Never smoker Second hand tobacco smoke exposure: No Alcohol intake: never Substance use: never Substance use type: does not use Do You Feel Safe in your Home?: Yes Lack of Transportation: No Lack of Food: Never True Current Housing: I Have Housing Concerned About Future Housing: No Difficulty Paying Gas/Electric Bills: No Difficulty Paying for Meds: No Currently Unemployed: No Education: Trade/Vocational Certificate Difficulty w/ Childcare or Family Care: No Living arrangements: assisted living Additional living arrangements comments: . Occupation/Education: retired Spiritual care concerns: No Meds Home Medications and Allergies Home Medications ?Medication ?Instructions ?Recorded ?Confirmed ?Type acetaminophen 500 mg tablet 500 mg PO Q6H PRN pain #120 tabs 04/18/22 10/09/24 Rx (Tylenol Extra Strength) docusate sodium 100 mg tablet 100 - 200 mg (1 - 2 x 100 mg) PO 04/18/22 10/09/24 Rx QHS #90 tabs cholecalciferol (vitamin D3) 25 25 mcg PO DAILY 01/24/23 10/09/24 History mcg (1,000 unit) capsule calcium 600 mg (as 1 cap PO BID 11/29/23 10/09/24 History carbonate)-vitamin D3 12.5 mcg (500 unit) capsule (Calcium with Vit D3) fluticasone propionate 50 2 spray intranasal DAILY #16 grams 02/06/24 10/09/24 Rx mcg/actuation nasal spray,suspension (Flonase Allergy Relief) mecobalamin (vitamin B12) 1,000 1,000 mcg PO EVERY OTHER DAY 02/10/24 10/09/24 History mcg disintegrating tablet,sublingual Dilantin Extended 100 mg capsule 100 mg PO TID #90 caps 04/26/24 10/09/24 Rx (phenytoin sodium extended) carbidopa 25 mg-levodopa 100 mg See Rx Instructions .Route .COMPLEX 04/26/24 10/09/24 History tablet sotalol 80 mg tablet 40 mg PO Q12HR 04/26/24 10/09/24 History apixaban 5 mg tablet (Eliquis) 5 mg PO BID #60 tabs 07/19/24 10/09/24 Rx levothyroxine 75 mcg tablet 75 mcg PO DAILY #30 tabs 07/19/24 10/09/24 Rx phenobarbital 30 mg tablet 30 mg PO TID #90 tabs 01/09/25 01/18/25 Rx furosemide 20 mg tablet 20 mg PO DAILY 10/09/24 10/09/24 History Allergies Allergy/AdvReac Type Severity Reaction Status Date / Time iohexol (From contrast - CT, Allergy Itching Verified 08/18/24 19:24 X-RAY) Vital Signs Vital Signs - 24 hr 10/09/24 18:28 10/09/24 18:30 10/09/24 18:31 Temperature Pulse Rate 65 81 64 Respiratory Rate 17 Blood Pressure 113/72 126/68 116/70 Pulse Oximetry 97 Oxygen Delivery 10/09/24 19:46 10/09/24 20:22 10/09/24 21:03 Temperature 36.6 C Pulse Rate 73 80 Respiratory Rate 13 18 Blood Pressure 127/74 141/56 H Pulse Oximetry 97 100 Oxygen Delivery Room Air 10/09/24 22:47 10/10/24 00:00 10/10/24 04:00 Temperature Pulse Rate 73 64 72 Respiratory Rate Blood Pressure Pulse Oximetry Oxygen Delivery 10/10/24 06:00 10/10/24 08:45 10/10/24 08:45 Temperature 36.5 C Pulse Rate 65 59 L Respiratory Rate 16 Blood Pressure 130/71 Pulse Oximetry 98 Oxygen Delivery Room Air 10/10/24 08:45 10/10/24 12:00 10/10/24 13:37 Temperature 36.3 C L Pulse Rate 62 64 61 Respiratory Rate 18 Blood Pressure 171/67 H Pulse Oximetry 99 Oxygen Delivery 10/10/24 16:00 Temperature Pulse Rate 68 Respiratory Rate Blood Pressure Pulse Oximetry Oxygen Delivery Exam Const: General: comfortable and no acute distress Other: Able to lie flat HENMT: Face/Nose/Sinus: Normal nares present and no epistaxis Mouth: Yes moist mucous membranes Eyes: Sclera: sclerae normal Pupils: Equal, round and reactive pupils present Neck: Neck: supple and no JVD Carotids: no bruits Resp: Auscultation: clear to auscultation bilaterally and lung sounds not diminished Other: No chest wall tenderness Cardio: Rate: regular rate Rhythm: regular rhythm Heart sounds: no gallops, no murmurs and no rubs GI: GI Palp: Yes Soft to palpation and No Tenderness to palpation present (GI) Auscultation: normal bowel sounds Skin: General skin exam: normal color, rashes and/or lesions noted and no erythema Other: Warm Neuro: Cranial nerves: Yes Equal, round and reactive pupils present Speech: normal speech Other: No obvious focal deficit or facial asymmetry Extrem: General: no edema Other: Normal capillary refills Intact distal pulses. Results Labs and Meds 10/09/24 12:02 10/10/24 05:38 Lab results: Comprehensive Metabolic Panel 10/10/24 Range/Units 05:38 Sodium 143 (137-145) mmol/L Potassium 4.0 (3.4-5.0) mmol/L Chloride 109 H (98-107) mmol/L Carbon Dioxide 29 (22-30) mmol/L BUN 30 H (7-17) mg/dL Creatinine 0.62 L (0.7-1.0) mg/dL Glucose 96 (65-110) mg/dL Calcium 9.3 (8.4-10.2) mg/dL Intake and Output 10/10/24 10/10/24 10/10/24 07:59 15:59 23:59 Intake Total 50 480 250 Output Total 300 Balance 50 480 -50 Intake: Oral 50 480 250 Output: Urine 300 Other: # Unmeasured Voids 2 Patient Weight 10/10/24 23:59 Weight 60.5 kg
[2024-10-11] VITALS (12 sets, daily range): BP systolic 110–176; BP diastolic 54–74; PULSE 63–77; RESP 18–20; TEMP 36.3–36.6; O2SAT 93–100
[2024-10-11] MEDS: LEVOTHYROXINE SODIUM 75 MCG TABLET PO (05:32)
[2024-10-11] MEDS: PHENobarbitaL (*CRX) 30 MG TABLET PO ×3 (09:12→16:51)
[2024-10-11] MEDS: CALCIUM/VITAMIN D 500 MG/5 MCG (200 I.U.) TABLET PO ×2 (09:12→16:51)
[2024-10-11] MEDS: SOTALOL HCL 40 MG TABLET PO ×2 (09:12→20:01)
[2024-10-11] MEDS: APIXABAN 5 MG TABLET PO ×2 (09:12→20:02)
[2024-10-11] MEDS: DILANTIN 100 MG 1 EACH BY MOUTH ×2 (09:12→16:52)
[2024-10-11] MEDS: CARBIDOPA/LEVODOPA 25/100 MG TABLET 1 TABLET BY MOUTH ×2 (09:12→16:51)
[2024-10-11] MEDS: CHOLECALCIFEROL 1,000 UNITS TABLET 1000 UNITS PO (09:12)
--- NOTE | 2024-10-11 15:21 | PM.IMPN ---
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 She was in rapid atrial fibrillation on arrival and has since converted to normal sinus rhythm on a diltiazem drip. Continue sotalol apixaban for stroke prophylaxis. She will be monitored overnight to ensure that her rate remains stable. Regarding the vertigo, this was transient and has resolved and may have been rate related. Blood pressures were reviewed and they are stable. Continue levothyroxine and check TSH- 1.810 -wnl stable HR-doing well. anticipate discharge tomorrow if no events overnight. Time Spent With Patient Time with patient: 25 - 35 minutes Subjective Date/time seen: 10/11/24 15:21 Interval history: Narrative retrieved from H/P: This is an 83-year-old female with paroxysmal atrial fibrillation on chronic anticoagulation, pulmonary embolism, hypertension, hypothyroidism, cerebral palsy, Parkinson's, and seizure disorder who presented to the emergency department for evaluation of dizziness and racing heart. The patient provides the following history. She got up around 04:00 to use the restroom and at that time she was extremely dizzy which she further qualifies as vertigo. She made back to bed and was able to fall back to sleep however when she got up for good for the day she was still feeling dizzy and also had notice her heart was racing. She took her blood pressure which was normal but her heart rate was in the 150s and she came in for evaluation. She is on sotalol at home and does report that she took that this morning. At the time my evaluation she has no feelings of vertigo or dizziness and she denies fever, chills, sweats, cold and flu symptoms, chest pain, pleuritic pain, palpitations, shortness of breath, cough, nausea, vomiting, diarrhea, dysuria, lower extremity edema, and calf pain. In the ED: She was in rapid atrial fibrillation on arrival with stable blood pressures. CMP and CBC were pretty unremarkable though her BUN was slightly elevated 24. Urinalysis was unremarkable. EKG showed regular narrow complex tachycardia, possibly ectopic atrial tachycardia versus atrial flutter with no significant ST T-wave abnormalities. She received metoprolol tartrate 5 mg IV without much improvement and was started on a diltiazem drip. Just prior to transfer to IMU she converted to a sinus rhythm and she is being admitted overnight for close monitoring. Pt is seen and examined. She reports no chest pain, no sob. She is very weak and absolutely doesn't want to go home until she works with PT/OT 10/11 doing well. walked with PT/OT. no chest pain. Review of Systems Review of Systems: 12 systems were reviewed and are negative except for as per HPI. Cardiovascular: Cardiovascular: Denies chest pain Respiratory: Respiratory: Reports chest congestion Gastrointestinal: Gastrointestinal: Denies abdominal pain Musculoskeletal: Musculoskeletal: Denies back pain Exam Narrative: General: Well-developed elderly female supine in bed in no distress. Weight: 58.1 kg. BMI: 22.7. HEENT: Pupils reactive. Extraocular motions intact. Moist mucous membranes. Neck: Supple. No JVD. Respiratory: Lungs are clear to auscultation bilaterally. Cardiovascular: Regular rate and rhythm with S1-S2. Gastrointestinal: Abdomen is soft, nontender, and nondistended with positive bowel sounds. Skin: Warm and dry. No rash or lesions on limited exam. Extremities: No cyanosis, clubbing, or significant edema. Radial and pedal pulses intact. Neurological: Alert. Cranial nerves 2-12 are grossly intact. Some weakness on the right side which is chronic. Psychiatric: Pleasant and cooperative with normal mood and affect. Objective Data Vital Signs Vital Signs: Vital Signs - 24 hr 10/10/24 16:00 10/10/24 20:00 10/10/24 20:00 Temperature Pulse Rate 68 79 76 Respiratory Rate Blood Pressure Pulse Oximetry Oxygen Delivery 10/10/24 22:00 10/11/24 00:00 10/11/24 04:00 Temperature 97.0 F L Pulse Rate 65 64 66 Respiratory Rate 20 Blood Pressure 147/64 H Pulse Oximetry 99 Oxygen Delivery 10/11/24 06:00 10/11/24 08:00 10/11/24 08:00 Temperature 97.4 F L Pulse Rate 71 70 Respiratory Rate 20 Blood Pressure 127/54 L Pulse Oximetry 98 Oxygen Delivery Room Air 10/11/24 09:11 10/11/24 09:12 10/11/24 10:52 Temperature Pulse Rate 71 Respiratory Rate Blood Pressure 176/74 H Pulse Oximetry Oxygen Delivery Room Air 10/11/24 12:00 10/11/24 14:00 Temperature 97.7 F Pulse Rate 65 63 Respiratory Rate 18 Blood Pressure 110/66 Pulse Oximetry 93 Oxygen Delivery Intake/Output Intake/Output: Intake & Output 10/08/24 10/09/24 10/10/24 10/11/24 23:59 23:59 23:59 23:59 Intake Total 1007.6 1020 860 Output Total 700 1510 Balance 1007.6 320 -650 Meds/Results Medications: Active Medications Generic Name Dose Route Start Last Admin Trade Name Freq PRN Reason Stop Dose Admin Acetaminophen 650 mg 10/09/24 14:33 Acetaminophen 325 Mg Tablet PO Q6H PRN Mild Pain (1-3) or Fever Apixaban 5 mg 10/09/24 22:05 10/11/24 09:12 Apixaban 5 Mg Tablet PO 5 mg Q12HR MANN Administration Calcium Carbonate 500 mg 10/10/24 09:00 10/11/24 09:12 Calcium/Vitamin D 500 Mg/5 Mcg (200 I.U.) Tablet PO 500 mg BID MANN Administration Carbidopa/Levodopa 1 tablet 10/10/24 17:00 10/11/24 09:12 Carbidopa/Levodopa 25/100 Mg Tablet BY MOUTH 1 tablet BID MANN Administration Furosemide 20 mg 10/10/24 09:00 10/11/24 09:07 Furosemide 20 Mg Tablet PO Not Given DAILY MANN Levothyroxine Sodium 75 mcg 10/10/24 06:30 10/11/24 05:32 Levothyroxine Sodium 75 Mcg Tablet PO 75 mcg DAILY@0630 MANN Administration Home Med Dilantin 1 each 10/10/24 17:00 10/11/24 09:12 100 Mg Extended BY MOUTH 11/09/24 16:59 1 each Release Cap (Brand) BID MANN Administration Phenobarbital 30 mg 10/09/24 22:05 10/11/24 12:43 Phenobarbital (*Crx) 30 Mg Tablet PO 30 mg TID MANN Administration Sotalol HCl 40 mg 10/09/24 22:05 10/11/24 09:12 Sotalol Hcl 40 Mg Tablet PO 40 mg Q12HR MANN Administration Vitamin D 1,000 units 10/10/24 09:00 10/11/24 09:12 Cholecalciferol 1,000 Units Tablet PO 1,000 units DAILY MANN Administration Radiology Results: ITS Impressions Chest X-Ray 10/09/24 15:05 IMPRESSION: No acute cardiopulmonary process. Quality VTE Prophylaxis VTE prophylaxis: pharmacologic ordered (on apixaban)
[2024-10-12] VITALS (7 sets, daily range): BP systolic 126–137; BP diastolic 61–68; PULSE 68–85; RESP 18–20; TEMP 36.4–36.7; O2SAT 99–100
[2024-10-12] MEDS: CALCIUM/VITAMIN D 500 MG/5 MCG (200 I.U.) TABLET PO (09:11)
[2024-10-12] MEDS: CARBIDOPA/LEVODOPA 25/100 MG TABLET 1 TABLET BY MOUTH (09:11)
[2024-10-12] MEDS: PHENobarbitaL (*CRX) 30 MG TABLET PO ×2 (09:11→14:02)
[2024-10-12] MEDS: LEVOTHYROXINE SODIUM 75 MCG TABLET PO (09:11)
[2024-10-12] MEDS: APIXABAN 5 MG TABLET PO (09:11)
[2024-10-12] MEDS: DILANTIN 100 MG 1 EACH BY MOUTH (09:11)
[2024-10-12] MEDS: CHOLECALCIFEROL 1,000 UNITS TABLET 1000 UNITS PO (09:11)
[2024-10-12] MEDS: SOTALOL HCL 40 MG TABLET PO (09:11)
--- NOTE | 2024-10-12 10:51 | P.PNIM_ITS ---
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 She was in rapid atrial fibrillation on arrival and has since converted to normal sinus rhythm on a diltiazem drip. Continue sotalol apixaban for stroke prophylaxis. She will be monitored overnight to ensure that her rate remains stable. Regarding the vertigo, this was transient and has resolved and may have been rate related. Blood pressures were reviewed and they are stable. Continue levothyroxine and check TSH- 1.810 -wnl stable HR-doing well. anticipate discharge tomorrow if no events overnight. Subjective Date/time seen: 10/12/24 10:51 Interval history: Narrative retrieved from H/P: This is an 83-year-old female with paroxysmal atrial fibrillation on chronic anticoagulation, pulmonary embolism, hypertension, hypothyroidism, cerebral palsy, Parkinson's, and seizure disorder who presented to the emergency department for evaluation of dizziness and racing heart. The patient provides the following history. She got up around 04:00 to use the restroom and at that time she was extremely dizzy which she further qualifies as vertigo. She made back to bed and was able to fall back to sleep however when she got up for good for the day she was still feeling dizzy and also had notice her heart was racing. She took her blood pressure which was normal but her heart rate was in the 150s and she came in for evaluation. She is on sotalol at home and does report that she took that this morning. At the time my evaluation she has no feelings of vertigo or dizziness and she denies fever, chills, sweats, cold and flu symptoms, chest pain, pleuritic pain, palpitations, shortness of breath, cough, nausea, vomiting, diarrhea, dysuria, lower extremity edema, and calf pain. In the ED: She was in rapid atrial fibrillation on arrival with stable blood pressures. CMP and CBC were pretty unremarkable though her BUN was slightly elevated 24. Urinalysis was unremarkable. EKG showed regular narrow complex tachycardia, possibly ectopic atrial tachycardia versus atrial flutter with no significant ST T-wave abnormalities. She received metoprolol tartrate 5 mg IV without much improvement and was started on a diltiazem drip. Just prior to transfer to IMU she converted to a sinus rhythm and she is being admitted overnight for close monitoring. Pt is seen and examined. She reports no chest pain, no sob. She is very weak and absolutely doesn't want to go home until she works with PT/OT 10/11 doing well. walked with PT/OT. no chest pain. Review of Systems Review of Systems: 12 systems were reviewed and are negativ e except for as per HPI. Cardiovascular: Cardiovascular: Denies chest pain Respiratory: Respiratory: Reports chest congestion Gastrointestinal: Gastrointestinal: Denies abdominal pain Musculoskeletal: Musculoskeletal: Denies back pain Exam Narrative: General: Well-developed elderly female supine in bed in no distress. Weight: 58.1 kg. BMI: 22.7. HEENT: Pupils reactive. Extraocular motions intact. Moist mucous membranes. Neck: Supple. No JVD. Respiratory: Lungs are clear to auscultation bilaterally. Cardiovascular: Regular rate and rhythm with S1-S2. Gastrointestinal: Abdomen is soft, nontender, and nondistended with positive bowel sounds. Skin: Warm and dry. No rash or lesions on limited exam. Extremities: No cyanosis, clubbing, or significant edema. Radial and pedal pulses intact. Neurological: Alert. Cranial nerves 2-12 are grossly intact. Some weakness on the right side which is chronic. Psychiatric: Pleasant and cooperative with normal mood and affect. Objective Data Vital Signs Vital Signs: Vital Signs - 24 hr 10/11/24 10:52 10/11/24 12:00 10/11/24 14:00 Temperature 97.7 F Pulse Rate 65 63 Respiratory Rate 18 Blood Pressure 110/66 Pulse Oximetry 93 Oxygen Delivery Room Air 10/11/24 16:00 10/11/24 20:00 10/11/24 20:00 Temperature Pulse Rate 70 71 Respiratory Rate Blood Pressure Pulse Oximetry Oxygen Delivery Room Air 10/11/24 20:01 10/11/24 22:00 10/12/24 00:00 Temperature 97.9 F Pulse Rate 77 69 85 Respiratory Rate 20 Blood Pressure 147/64 H Pulse Oximetry 100 Oxygen Delivery 10/12/24 04:00 10/12/24 06:00 10/12/24 09:11 Temperature 97.6 F Pulse Rate 68 70 72 Respiratory Rate 20 Blood Pressure 137/61 Pulse Oximetry 100 Oxygen Delivery 10/12/24 09:17 10/12/24 09:17 Temperature Pulse Rate 69 Respiratory Rate Blood Pressure Pulse Oximetry Oxygen Delivery Room Air Intake/Output Intake/Output: Intake & Output 10/09/24 10/10/24 10/11/24 10/12/24 23:59 23:59 23:59 23:59 Intake Total 1007.6 1020 1580 660 Output Total 700 1510 1200 Balance 1007.6 320 70 -540 Meds/Results Medications: Active Medications Generic Name Dose Route Start Last Admin Trade Name Freq PRN Reason Stop Dose Admin Acetaminophen 650 mg 10/09/24 14:33 Acetaminophen 325 Mg Tablet PO Q6H PRN Mild Pain (1-3) or Fever Apixaban 5 mg 10/09/24 22:05 10/12/24 09:11 Apixaban 5 Mg Tablet PO 5 mg Q12HR MANN Administration Calcium Carbonate 500 mg 10/10/24 09:00 10/12/24 09:11 Calcium/Vitamin D 500 Mg/5 Mcg (200 I.U.) Tablet PO 500 mg BID MANN Administration Carbidopa/Levodopa 1 tablet 10/10/24 17:00 10/12/24 09:11 Carbidopa/Levodopa 25/100 Mg Tablet BY MOUTH 1 tablet BID MANN Administration Furosemide 20 mg 10/10/24 09:00 10/12/24 09:11 Furosemide 20 Mg Tablet PO Not Given DAILY MANN Levothyroxine Sodium 75 mcg 10/10/24 06:30 10/12/24 09:11 Levothyroxine Sodium 75 Mcg Tablet PO 75 mcg DAILY@0630 MANN Administration Home Med Dilantin 1 each 10/10/24 17:00 10/12/24 09:11 100 Mg Extended BY MOUTH 11/09/24 16:59 1 each Release Cap (Brand) BID MANN Administration Phenobarbital 30 mg 10/09/24 22:05 10/12/24 09:11 Phenobarbital (*Crx) 30 Mg Tablet PO 30 mg TID MANN Administration Sotalol HCl 40 mg 10/09/24 22:05 10/12/24 09:11 Sotalol Hcl 40 Mg Tablet PO 40 mg Q12HR MANN Administration Vitamin D 1,000 units 10/10/24 09:00 10/12/24 09:11 Cholecalciferol 1,000 Units Tablet PO 1,000 units DAILY MANN Administration Radiology Results: ITS Impressions Chest X-Ray 10/09/24 15:05 IMPRESSION: No acute cardiopulmonary process. Labs Labs: Laboratory Results - last 24 hr 10/10/24 05:38 Phenobarbital 19.1 Quality VTE Prophylaxis VTE prophylaxis: pharmacologic ordered (on apixaban)
--- NOTE | 2024-10-12 14:22 | P.DS_ITS ---
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 of anticoagulants Status: Acute (3) Hypothyroidism: Qualifiers: Hypothyroidism type: unspecified Qualified Code(s): E03.9 - Hypothyroidism, unspecified Code(s): E03.9 - Hypothyroidism, unspecified Status: Chronic (4) Hypertension: Qualifiers: Hypertension type: essential hypertension Qualified Code(s): I10 - Essential (primary) hypertension Code(s): I10 - Essential (primary) hypertension Status: Chronic DS: Summary Hospital Course Hospital Course: Narrative retrieved from H/P: This is an 83-year-old female with paroxysmal atrial fibrillation on chronic anticoagulation, pulmonary embolism, hypertension, hypothyroidism, cerebral palsy, Parkinson's, and seizure disorder who presented to the emergency department for evaluation of dizziness and racing heart. The patient provides the following history. She got up around 04:00 to use the restroom and at that time she was extremely dizzy which she further qualifies as vertigo. She made back to bed and was able to fall back to sleep however when she got up for good for the day she was still feeling dizzy and also had notice her heart was racing. She took her blood pressure which was normal but her heart rate was in the 150s and she came in for evaluation. She is on sotalol at home and does report that she took that this morning. At the time my evaluation she has no feelings of vertigo or dizziness and she denies fever, chills, sweats, cold and flu symptoms, chest pain, pleuritic pain, palpitations, shortness of breath, cough, nausea, vomiting, diarrhea, dysuria, lower extremity edema, and calf pain. In the ED: She was in rapid atrial fibrillation on arrival with stable blood pressures. CMP and CBC were pretty unremarkable though her BUN was slightly elevated 24. Urinalysis was unremarkable. EKG showed regular narrow complex tachycardia, possibly ectopic atrial tachycardia versus atrial flutter with no significant ST T-wave abnormalities. She received metoprolol tartrate 5 mg IV without much improvement and was started on a diltiazem drip. Just prior to transfer to IMU she converted to a sinus rhythm and she is being admitted overnight for close monitoring. Pt is seen and examined. She reports no chest pain, no sob. She is very weak and absolutely doesn't want to go home until she works with PT/OT She was monitored and her rate remains stable. Regarding the vertigo, this was transient and has resolved and may have been rate related. Blood pressures were stable. She worked with PT/OT and did well. Continue levothyroxine and check TSH- 1.810 -wnl NO changes with meds. She will have to f/u with cardiology and she is aware. Status at Discharge Functional status at discharge: uses cane/walker Overall status at discharge: patient is progressing back to baseline Time Spent with Patient Time attestation: Total time spent providing and/or coordinating discharge services: Time spent: Greater than 30 minutes Exam Narrative: General: Well-developed elderly female supine in bed in no distress. HEENT: Pupils reactive. Extraocular motions intact. Moist mucous membranes. Neck: Supple. No JVD. Respiratory: Lungs are clear to auscultation bilaterally. Cardiovascular: Regular rate and rhythm with S1-S2. Gastrointestinal: Abdomen is soft, nontender, and nondistended with positive bowel sounds. Skin: Warm and dry. No rash or lesions on limited exam. Extremities: No cyanosis, clubbing, or significant edema. Radial and pedal pulses intact. Neurological: Alert. Cranial nerves 2-12 are grossly intact. Some weakness on the right side which is chronic. Psychiatric: Pleasant and cooperative with normal mood and affect. Const: General: comfortable DS: Data Data Completed and Pending Labs on day of discharge: Labs from last 24 hours 10/10/24 05:38 Phenobarbital 19.1 Discharge Plan Discharge Attending physician on discharge: Capri Santiago Consulting providers: Cristopher Shea Discharging Clinician: Anita Villalobos Anticipated Discharge Date/Time: 10/12/24 14:25 Patient Disposition: NH Skilled Nursing/Asst Living Activity: may shower Diet: as tolerated and heart healthy Discharge Instructions: Patient to discharge to [facility] in [place] ([phone]) . Please fax discharge instructions and medication sheets to [phone]. Patient Instructions: Antibiotic Form, Apixaban (By mouth), Heart Failure (GEN) Patient Language: Lao Stand Alone Forms: General Discharge Information Follow-up/Referrals: Cristopher Shea MD [Physician] - 2 Weeks (please follow up with your cardiology) Theodore Farrar MD [Primary Care Provider] - 2 Weeks Discharge Medications: Continued cholecalciferol (vitamin D3) 25 mcg (1,000 unit) capsule 25 mcg PO DAILY sotalol 80 mg tablet 40 mg PO Q12HR carbidopa-levodopa 25-100 mg tablet See Rx Instructions .ROUTE .COMPLEX Rx Instructions: Take 1.5 tabs 3x daily. 1 pill at bedtime calcium carbonate-vitamin D3 [Calcium 600 with Vitamin D3] 600 mg-12.5 mcg (500 unit) capsule 1 cap PO BID mecobalamin (vitamin B12) 1,000 mcg Tablet,Disintegrating 1,000 mcg PO EVERY OTHER DAY Rx Instructions: Friday, Friday, Friday furosemide 20 mg tablet 20 mg PO DAILY acetaminophen [Tylenol Extra Strength] 500 mg tablet 500 mg PO Q6H PRN (Reason: pain) Qty: 120 5RF docusate sodium 100 mg tablet 100 - 200 mg PO QHS Qty: 90 1RF fluticasone propionate [Flonase Allergy Relief] 50 mcg/actuation spray,suspension 2 spray intranasal DAILY Qty: 16 3RF Rx Instructions: administer into each nostril phenytoin sodium extended [Dilantin Extended] 100 mg capsule 100 mg PO TID Qty: 90 5RF Patient Comments: PER PT CAN NOT TAKE GENERIC WILL BRING IN HOME MEDICATION levothyroxine 75 mcg tablet 75 mcg PO DAILY Qty: 30 5RF Eliquis 5 mg tablet 5 mg PO BID Qty: 60 5RF phenobarbital 30 mg tablet 30 mg PO TID Qty: 90 0RF Date of admission: 10/11/24 16:48 Primary Care Provider: Theodore Farrar Admitting Provider: Capri Santiago Attending physician on admission: Capri Santiago Condition: Stable Quality VTE Prophylaxis VTE prophylaxis: pharmacologic ordered (on apixaban) Hospitalist MIPS Heart Failure (Exclusion) Patient has history of Heart Transplant or Left Ventricular Assistive Device?: No IF YES, STOP HERE Heart Failure (Qualifier) Patient has current or prior documentation of LVEF less than or equal to 40%, or mod/servere depressed LVSF?: No IF NO, STOP HERE
--- OUTSIDE RECORDS SUMMARY | 2024-10-14 08:54 | XMS_ITS ---
Author Organization [facility] Address [address] [place], [place] [id number] Care Team Providers Care Mechanic General Operational Test Name Role Phone CRISTOFER ELINOR Unavailable [phone] Bobo Lim Unavailable Unavailable REASON FOR VISIT *Wound check Vital Signs Weight 130 lbs 07/29/2024 Weight-kg 58.97 kg 07/29/2024 Height 67.00 in 07/29/2024 Height-cm 170.18 cm 07/29/2024 BMI 20.36 kg/m2 07/29/2024 0 Encounters Encounter Location Date Provider Diagnosis [facility] [address] [place], [place] [id number] 07/29/2024 ELINOR PHILLIPS Onychomycosis B35.1 ; 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 ; Pain in right toe(s) M79.674 ; Pain in left toe(s) M79.675 and Unspecified atherosclerosis of [place] arteries of extremities, bilateral legs I70.203 Assessments Encounter Date Diagnosis (ICD Code) Assessment Notes Treatment Notes Treatment Clinical Notes Section Notes 07/29/2024 Onychomycosis (ICD-10 - B35.1) 07/29/2024 Non-pressure chronic ulcer of other part of left foot limited to breakdown of skin (ICD-10 - L97.521) 07/29/2024 Pain in right toe(s) (ICD-10 - M79.674) 07/29/2024 Pain in left toe(s) (ICD-10 - M79.675) 07/29/2024 Unspecified atherosclerosis of [place] arteries of extremities, bilateral legs (ICD-10 - I70.203) 07/29/2024 Other Dispense interdigital pad. Plan Of Treatment Treatment Notes Assessment Notes Other Dispense interdigita l pad. Next Appt Details Provider Name:ELINOR BAJWA ASHLEE, 11/18/2024 01:50:00 PM, [address], [facility], [place], [place], [id number], Progress Notes * PRESLEY BRISCOE LDOB:1940 (83 yo F)Acc No.[id number]:07/29/2024 Patient:?PRESLEY BRISCOE Provider:?Elinor Phillips DPM :1940???Age:83 Y???Sex:Female D ate:07/29/2024 Address:[address] [place] [address] [place] [address], [id number] Subjective: * Chief Complaints: * ???*Wound check * HPI: ???HPI:?Follow Up Visit?Patient presents for follow up visit for a wound on her left 2nd digit. Patient states their problem is improving.?She is not having any pain or problems.?MA: sea.? * ROS:?General / Constitutional:?Patient denies?change in appetite, fatigue, chills, fever.?Cardiovascular:?Chest pain?denies.?Neurologic:?Loss of use of extremity?denies.? * Medical History:? * Surgical History:? * Hospitalization/Major Diagno stic Procedure:? * Family History:?Father: PRN - Father: :: Cancer,,known absent , :: Heart Disease < 55 yrs,,known absent .?Mother: PRN - Mother: :: Cancer,,known absent , :: Arthritis,,known absent .? * Social History:?Migrated Social History:?Migrated Social History: History of tobacco use : , Smoking Status : Never smoked. * Medications:? Objective: * Vitals:?Wt: 130 lbs, Wt-k.97 kg, Ht: 67.00 in, Ht-cm: 170.18 cm, BMI: 20.36 Index, Body Surface Area: 1.67. 0. * Examination: ???Physical Examination: ?Gen:?The patient is awake, alert, well developed, well groomed and well nourished. They are in no apparent distress. .?Musc:?Foot structure is normal bilateral. Muscle strength is 5/5 to all joints bilaterally. There is no pain on palpation. .?Derm:?There is absent hair growth on bilateral feet. There are pigmentary changes of bilateral foot. The skin color is red. The skin texture is thin and shiny. Distal cooling noted in bilateral feet. Nails are thick, discolored, and dystrophic with subungual debris. They are painful to palpation. There is no evidence of ulceration. .?Neuro:?Grossly intact to light touch bilateral .?Vasc:?Posterior tibialis pulse 0/4 bilaterally. Dorsalis pedis pulse 0/4 bilaterally. No edema noted. Capillary fill time > 3 seconds to all digits. .? Assessment: * Assessment: 1.?Non-pressure chronic ulce r of other part of left foot limited to breakdown of skin - L97.521 (Primary)???2.?Onychomycosis - B35.1???3.?Pain in right toe(s) - M79.674???4.?Pain in left toe(s) - M79.675???5.?Unspecified atherosclerosis of [place] arteries of extremities, bilateral legs - I70.203??? Plan: * Treatment: * Procedure Codes:? * Billing Information: * Visit Code:? 98892 Office Visit, Est Pt., Level 3. * Procedure Codes:? * RD SEARCHER Sign off status: Completed true * Provider:?Elinor Phillips DPM Date: ?07/29/2024 Generated for Ori zhang/Kassandra/eTransmitting on:?10/14/2024 08:54 AM RECORD SEARCHER History and Physical Notes * HPI (History of Present Illness) Category Sub-Category Detail Notes Category Not es HPI Follow Up Visit Patient presents for follow up visit for a wound on her left 2nd digit. Patient states their problem is improving. She is not having any pain or problems. MA: sea Examination Category Sub-Category Detail Notes Category Not es Physical Examination Gen: The patient is awake, alert, well developed, well groomed and well nourished. They are in no apparent distress. Vasc: Posterior tibialis p ulse 0/4 bilaterally. Dorsalis pedis pulse 0/4 bilaterally. No edema noted. Capillary fill time > 3 seconds to all digits. Neuro: Grossly intact to li ght touch bilateral Musc: Foot structure is no rmal bilateral. Muscle strength is 5/5 to all joints bilaterally. There is no pain on palpation. Derm: There is absent hair growth on bilateral feet. There are pigmentary changes of bilateral foot. The skin color is red. The skin texture is thin and shiny. Distal cooling noted in bilateral feet. Nails are thick, discolored, and dystrophic with subungual debris. They are painful to palpation. There is no evidence of ulceration.
--- OUTSIDE RECORDS SUMMARY | 2024-10-14 08:54 | XMS_ITS ---
Author Organization [facility] Address [address] [place], [place] [id number] Care Team Providers Care Oil Prospecting Observer Name Role Phone GARETTASHLEE ELINOR Unavailable [phone] Bobo Lim Unavailable Unavailable REASON FOR VISIT *General care Vital Signs Weight 130 lbs 09/16/2024 Weight-kg 58.97 kg 09/16/2024 Height 67.00 in 09/16/2024 Height-cm 170.18 cm 09/16/2024 BMI 20.36 kg/m2 09/16/2024 Encounters Encounter Location Date Provider Diagnosis [facility] [address] [place], [place] [id number] 09/16/2024 ELINOR PHILLIPS Onychomycosis B35.1 ; Pain in right toe(s) M79.674 ; Pain in left toe(s) M79.675 and Unspecified atherosclerosis of [place] arteries of extremities, bilateral legs I70.203 Assessments Encounter Date Diagnosis (ICD Code) Assessment Notes Treatment Notes Treatment Clinical Notes Section Notes 09/16/2024 Onychomycosis (ICD-10 - B35.1) 09/16/2024 Pain in right toe(s) (ICD-10 - M79.674) 09/16/2024 Pain in left toe(s) (ICD-10 - M79.675) 09/16/2024 Unspecified atherosclerosis of [place] arteries of extremities, bilateral legs (ICD-10 - I70.203) 09/16/2024 Other Nails 1-5 Bilateral were debrided extensively with nail nippers and emery board, reducing length and girth to pink healthy tissue with any subungual debris and necrotic tissue removed Plan Of Treatment Treatment Notes Assessment Notes Other Nails 1-5 Bilateral were debrided extensively with nail nippers and emery board, reducing length and girth to pink healthy tissue with any subungual debris and necrotic tissue removed Next Appt Details Provider Name:ELINOR Khang ROSADO, 11/18/2024 01:50:00 PM, [address], [facility], [place], [place], [id number], Progress Notes * PRESLEY BRISCOE LDOB:1940 (83 yo F)Acc No.[id number]:09/16/2024 Patient:?PRESLEY BRISCOE Provider:?Elinor Phillips DPM :1940???Age:83 Y???Sex:Female D ate:09/16/2024 Address:[address] [place] [address] [address] [place] [address], [id number] Subjective: * Chief Complaints: * ???*General care * HPI: ???HPI:?General care?Patient presents to the office for at risk foot care. Patient states that their nails are thickened, elongated and painful. Patient states that it is aggravated by shoe gear. Onset is gradual. Patient denies being diabetic. Patient is taking prescription blood thinners. Date last seen by Dr. Kinney was 06/2024. Initials sea.? * ROS:?General / Constitutional:?Patient denies?change in [...] BMI: 20.36 Index, Body Surface Area: 1.67. * Examination: ???Physical Examination: ?Gen:?The patient is [...] subungual debris. They are painful to palpation. .?Neuro:?Grossly intact to light touch bilateral .?Vasc:?Posterior tibialis pulse 0/4 bilaterally. Dorsalis pedis pulse 0/4 bilaterally. No edema noted. Capillary fill time > 3 seconds to all digits. .? Assessment: * Assessment: 1.?Onychomycosis - B35.1 (Pr imary)???2.?Pain in right toe(s) - M79.674???3.?Pain in left toe(s) - M79.675???4.?Unspecified atherosclerosis of [place] arteries of extremities, bilateral legs - I70.203??? Plan: * Treatment: * Procedure Codes:?12888 TRIM SKIN LESION, Modifiers: Q8 04191 DEBRIDE NAIL, 6 OR MORE, Modifiers: 59 , Q8 * Billing Information: * Visit Code:? * Procedure Codes:? 60752 TRIM SKIN LESION. Modifiers: Q8 52235 DEBRIDE NAIL, 6 OR MORE. Modifiers: 59, Q8 * IGN EXCHANGE TRADER Sign off status: Completed true * Provider:?Elinor Phillips DPM Date: ?09/16/2024 Generated for Ori zhang/Kassandra/Neil on:?10/14/2024 08:54 AM FOREIGN EXCHANGE TRADER History and Physical Notes * HPI (History of Present Illness) Category Sub-Category Detail Notes Category Not es HPI General care Patient presents to the office for at risk foot care. Patient states that their nails are thickened, elongated and painful. Patient states that it is aggravated by shoe gear. Onset is gradual. Patient denies being diabetic. Patient is taking prescription blood thinners. Date last seen by Dr. Kinney was 06/2024. Initials sea Examination Category Sub-Category Detail Notes Category [...]
--- OUTSIDE RECORDS SUMMARY | 2024-10-14 08:54 | XMS_ITS ---
Author Organization [facility] Address [address] [place], [place] [id number] Care Team Providers Care Heat And Vent Aircraft Mechanic Name Role Phone CRISTOFER ELINOR Unavailable [phone] Bobo Lim Unavailable Unavailable REASON FOR VISIT *General care Medications Medication SIG (Take, Route, Frequency, Duration) Notes Start Date End Date Status Doxycycline Hyclate 100 MG 1 tablet Oral ly Once a day for 14 days 07/15/2024 07/28/2024 Active Vital Signs Weight 130 lbs 07/15/2024 Weight-kg 58.97 kg 07/15/2024 Height 67.00 in 07/15/2024 Height-cm 170.18 cm 07/15/2024 BMI 20.36 kg/m2 07/15/2024 Encounters Encounter Location Date Provider Diagnosis [facility] [address] [place], [place] [id number] 07/15/2024 ELINOR PHILLIPS Onychomycosis B35.1 ; Pain in right toe(s) M79.674 ; Pain in left toe(s) M79.675 and Unspecified atherosclerosis of [place] arteries of extremities, bilateral legs I70.203 Assessments Encounter Date Diagnosis (ICD Code) Assessment Notes Treatment Notes Treatment Clinical Notes Section Notes 07/15/2024 Onychomycosis (ICD-10 - B35.1) 07/15/2024 Pain in right toe(s) (ICD-10 - M79.674) 07/15/2024 Pain in left toe(s) (ICD-10 - M79.675) 07/15/2024 Unspecified atherosclerosis of [place] post[place] arteries of extremities, bilateral legs (ICD-10 - I70.203) 07/15/2024 Other Nails 1-5 Bilateral were debrided extensively with nail nippers and emery board, reducing length and girth to pink healthy tissue with any subungual debris and necrotic tissue removed Plan Of Treatment Medication Medication Name Sig Start Date Stop Date Notes Doxycycline Hyclate 100 MG 1 tablet Oral ly Once a day for 14 days 07/15/2024 07/28/2024 Treatment Notes Assessment Notes Other Nails 1-5 Bilateral were debrided extensively with nail nippers and emery board, reducing length and girth to pink healthy tissue with any subungual debris and necrotic tissue removed Next Appt Details Follow Up: 2 Weeks, Reason: Provider Name:ELINOR ROSADO, 11/18/2024 01:50:00 PM, [address], [facility], [place], [place], [phone], Progress Notes * PRESLEY BRISCOE LDOB:1940 (83 yo F)Acc No.[id number]:07/15/2024 Patient:?PRESLEY BRISCOE Provider:?Elinor Phillips DPM :1940???Age:83 Y???Sex:Female D ate:07/15/2024 Address:[address] [place], [place] [id number] Subjective: * Chief Complaints: * ???*General care * HPI: ???HPI:?General care?Patient presents to the office for at risk foot care. Patient states that their nails are thickened, elongated and painful. Patient states that it is aggravated by shoe gear. Onset is gradual. Patient denies being diabetic., Patient is taking prescription blood thinners., Date last seen by Dr. Kinney was April 2024., Initials HG.? * ROS:?General / Constitutional:?Patient denies?change in appetite, fatigue, chills, fever.?Cardiovascular:?Chest pain?denies.?Neurologic:?Loss of use of extremity?denies.? * Medical History:? * Surgical History:? * Hospitalization/Major Diagno stic Procedure:? * Family History:?Father: PRN - Father: :: Cancer,,known absent , :: Heart Disease < 55 yrs,,known absent .?Mother: PRN - Mother: :: Cancer,,known absent , :: Arthritis,,known absent .? * Medications:? Objective: * Vitals:?Wt: 130 lbs, [...] subungual debris. They are painful to palpation. Ulceration noted 5 mm. The wound measures 4 mm. Erythema is not present. There is serosanguinous drainage. There is a no odor. There is no exposed bone. .?Neuro:?Grossly intact to light touch bilateral .?Vasc:?Posterior tibialis pulse 0/4 bilaterally. Dorsalis pedis pulse 0/4 bilaterally. No edema noted. Capillary fill time > 3 seconds to all digits. .? Assessment: * Assessment: 1.?Onychomycosis - B35.1 (Pr imary)???2.?Pain in right toe(s) - M79.674???3.?Pain in left toe(s) - M79.675???4.?Unspecified atherosclerosis of [place] post[place] arteries of extremities, bilateral legs - I70.203??? Plan: * Treatment: * Procedure Codes:?51091 DEBRI DE NAIL, 6 OR MORE, Modifiers: Q8 * Follow Up:?2 Weeks * Billing Information: * Visit Code:? * Procedure Codes:? 36917 DEBRIDE NAIL, 6 OR MORE. Modifiers: Q8 * DIGGER Sign off status: Completed true * Provider:?Elinor Phillips DPM Date: ?07/15/2024 Generated for Ori hzang/Kassandra/Neil on:?10/14/2024 08:54 AM HERB DIGGER History and Physical Notes * HPI (History of Present Illness) Category Sub-Category Detail Notes Category Not es HPI General care Patient presents to the office for at risk foot care. Patient states that their nails are thickened, elongated and painful. Patient states that it is aggravated by shoe gear. Onset is gradual. Patient denies being diabetic., Patient is taking prescription blood thinners., Date last seen by Dr. Kinney was April 2024., Initials HG Examination Category Sub-Category Detail Notes Category Not [...] subungual debris. They are painful to palpation. Ulceration noted 5 mm. The wound measures 4 mm. Erythema is not present. There is serosanguinous drainage. There is a no odor. There is no exposed bone.
--- OUTSIDE RECORDS SUMMARY | 2024-10-14 08:54 | XMS_ITS | Patient Health Record ---
Author Organization [facility] Address [address] [facility] [address] [place], [place] [id number] Care Team Providers Care Electrician Refinery Name Role Phone AMEMARII ELINOR Unavailable [phone] Bobo Lim Unavailable Unavailable Allergies No Known Allergies Reason For Referral No Information Vital Signs Height-cm 170.18 cm 09/16/2024 Weight-kg 58.97 kg 09/16/2024 Height 67.00 in 09/16/2024 Weight 130 lbs 09/16/2024 BMI 20.36 kg/m2 09/16/2024 Encounters Encounter Location Date Provider Diagnosis [facility] [address] [place] [id number] 10/31/2023 ELINOR [place] Onychomycosis B35.1 ; Pain in right toe(s) M79.674 ; Pain in left toe(s) M79.675 and Unspecified atherosclerosis of [place] arteries of extremities, bilateral legs I70.203 [facility] [address] [place], [place] [id number] 01/02/2024 ELINOR [place] Onychomycosis B35.1 ; Pain in right toe(s) M79.674 ; Pain in left toe(s) M79.675 and Unspecified atherosclerosis of [place] arteries of extremities, bilateral legs I70.203 [facility] [address] [place], [place] [id number] 03/11/2024 ELINOR [place] Onychomycosis B35.1 ; Pain in right toe(s) M79.674 ; Pain in left toe(s) M79.675 and Unspecified atherosclerosis of [place] arteries of extremities, bilateral legs I70.203 [facility] [address] [place] [id number] 05/13/2024 ELINOR [place] Onychomycosis B35.1 ; Pain in right toe(s) M79.674 ; Pain in left toe(s) M79.675 and Unspecified atherosclerosis of [place] arteries of extremities, bilateral legs I70.203 [facility] [address] [place] [id number] 07/15/2024 ELINORGIULIA [place] Onychomycosis B35.1 ; Pain in right toe(s) M79.674 ; Pain in left toe(s) M79.675 and Unspecified atherosclerosis of [place] arteries of extremities, bilateral legs I70.203 [facility] [address] [place] [id number] 07/29/2024 ELINOR [place] Onychomycosis B35.1 ; 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 ; Pain in right toe(s) M79.674 ; Pain in left toe(s) M79.675 and Unspecified atherosclerosis of [place] arteries of extremities, bilateral legs I70.203 [facility] [address] [place] [phone] 09/16/2024 ELINOR C[place] Onychomycosis B35.1 ; Pain in right toe(s) M79.674 ; Pain in left toe(s) M79.675 and Unspecified atherosclerosis of [place] arteries of extremities, bilateral legs I70.203 Assessments Encounter Date Diagnosis (ICD Code) Assessment Notes Treatment Notes Treatment Clinical Notes Section Notes 10/31/2023 Onychomycosis (ICD-10 - B35.1) 01/02/2024 Onychomycosis (ICD-10 - B35.1) 03/11/2024 Onychomycosis (ICD-10 - B35.1) 05/13/2024 Onychomycosis (ICD-10 - B35.1) 07/15/2024 Onychomycosis (ICD-10 - B35.1) 07/29/2024 Non-pressure chronic ulcer of other part of left foot limited to breakdown of skin (ICD-10 - L97.521) 07/29/2024 Onychomycosis (ICD-10 - B35.1) 09/16/2024 Onychomycosis (ICD-10 - B35.1) 09/16/2024 Pain in right toe(s) (ICD-10 - M79.674) 07/29/2024 Pain in right toe(s) (ICD-10 - M79.674) 07/15/2024 Pain in right toe(s) (ICD-10 - M79.674) 05/13/2024 Pain in right toe(s) (ICD-10 - M79.674) 03/11/2024 Pain in right toe(s) (ICD-10 - M79.674) 01/02/2024 Pain in right toe(s) (ICD-10 - M79.674) 10/31/2023 Pain in right toe(s) (ICD-10 - M79.674) 10/31/2023 Pain in left toe(s) (ICD-10 - M79.675) 01/02/2024 Pain in left toe(s) (ICD-10 - M79.675) 03/11/2024 Pain in left toe(s) (ICD-10 - M79.675) 05/13/2024 Pain in left toe(s) (ICD-10 - M79.675) 07/15/2024 Pain in left toe(s) (ICD-10 - M79.675) 07/29/2024 Pain in left toe(s) (ICD-10 - M79.675) 09/16/2024 Pain in left toe(s) (ICD-10 - M79.675) 09/16/2024 Unspecified atherosclerosis of [place] arteries of extremities, bilateral legs (ICD-10 - I70.203) 07/29/2024 Unspecified atherosclerosis of [place] arteries of extremities, bilateral legs (ICD-10 - I70.203) 07/15/2024 Unspecified atherosclerosis of [place] arteries of extremities, bilateral legs (ICD-10 - I70.203) 05/13/2024 Unspecified atherosclerosis of [place] arteries of extremities, bilateral legs (ICD-10 - I70.203) 03/11/2024 Unspecified atherosclerosis of [place] arteries of extremities, bilateral legs (ICD-10 - I70.203) 01/02/2024 Unspecified atherosclerosis of [place] arteries of extremities, bilateral legs (ICD-10 - I70.203) 10/31/2023 Unspecified atherosclerosis of [place] arteries of extremities, bilateral legs (ICD-10 - I70.203) 10/31/2023 Other Nails 1-5 Bilateral were debrided extensively with nail nippers and emery board, reducing length and girth to pink healthy tissue with any subungual debris and necrotic tissue removed 01/02/2024 Other Nails 1-5 Bilateral were debrided extensively with nail nippers and emery board, reducing length and girth to pink healthy tissue with any subungual debris and necrotic tissue removed 03/11/2024 Other Nails 1-5 Bilateral were debrided extensively with nail nippers and emery board, reducing length and girth to pink healthy tissue with any subungual debris and necrotic tissue removed 05/13/2024 Other Nails 1-5 Bilateral were debrided extensively with nail nippers and emery board, reducing length and girth to pink healthy tissue with any subungual debris and necrotic tissue removed 07/15/2024 Other Nails 1-5 Bilateral were debrided extensively with nail nippers and emery board, reducing length and girth to pink healthy tissue with any subungual debris and necrotic tissue removed 07/29/2024 Other Dispense interdigital pad. 09/16/2024 Other Nails 1-5 Bilateral were debrided extensively with nail nippers and emery board, reducing length and girth to pink healthy tissue with any subungual debris and necrotic tissue removed Plan Of Treatment Next Appt Details Provider Name:ELINOR ROSADO, 11/18/2024 01:50:00 PM, [address], [facility], [place], [place], [phone], Insurance Providers Payer Name Payer Address Payer Phone Subscriber Number Group Number Insured Name Patient Relationship to Insured Coverage Start Date Coverage End Date Medicare Part B [place] [address] [place] [phone] [id number] PRESLEY BRISCOE Self - patient is the insured [employer] [address] [place] [id number] PRESLEY BRISCOE Self - patient is the insured Medical (General) History Medical History History ICD Code Parkinson's disease
--- OUTSIDE RECORDS SUMMARY | 2024-10-14 08:55 | XMS_ITS | Clinical Summary ---
Author Organization [facility] [address] [facility] [address] [place] [address] Care Team Providers Care Plant Cytologist Name Role Phone Bobo Lim Unavailable [phone] Andrew Vegas MD Unavailable Odell Kinney DO Primary Care Provider [phone] Allergies No known active allergies Medications PHENobarbital (LUMINAL) 30 mg tablet Take 1 tablet (30 mg total) by mouth 3 (three) times a day 09/03/2018 Active DILANTIN EXTENDED 100 mg ER capsule Take 1 capsule (100 mg total) by mouth 3 (three) times a day 08/24/2018 Active cholecalciferol (VITAMIN D-3) 1,000 unit capsule Take 10 capsules (10,000 Units total) by mouth daily 1 tablet on Mondays Active cyanocobalamin (Vitamin B-12) 1,000 mcg tablet Take 1 tablet (1,000 mcg total) by mouth daily Take Friday, Friday, and Friday Active multivitamin capsule Take 1 capsule by mouth every morning Active calcium carbonate (CALCIUM 500 ORAL) Take 600 mg by mouth daily Active docusate sodium (COLACE) 50 mg capsule Take 1 capsule (50 mg total) by mouth 2 (two) times a day Active HYDROcodone-orion taminophen (NORCO) 5-325 mg per tabletIndicatio ns:Pain Take 1-2 tablets by mouth every 4 (four) hours as needed for pain 40 tablet 11/06/2023 Active Eliquis 5 mg tablet Take 1 tablet (5 mg total) by mouth 2 (two) times a day 12/31/2023 Active acetaminophen (TYLENOL) 500 mg tablet 12/04/2023 Active loperamide (IMODIUM) 2 mg capsule 12/04/2023 Active furosemide (LASIX) 20 mg tablet Take 1 tablet (20 mg total) by mouth daily 30 tablet 11 02/24/2024 02/24/20 25 Active fluticasone propionate (FLONASE) 50 mcg/actuation nasal spray 02/06/2024 Active levothyroxine (SYNTHROID) 75 mcg tablet 02/23/2024 Active sotaloL (BETAPACE) 80 mg tablet Take 0.5 tablets (40 mg total) by mouth 2 (two) times a day 30 tablet 11 06/07/2024 06/07/20 25 Active carbidopa-levod opa (SINEMET) 25-100 mg per tablet Take 1 tablet by mouth 4 (four) times a day 360 tablet 1 06/07/2024 12/05/19 25 Active Active Problems Problem Noted Date Diagnosed Date Headache due to injury of head and neck 09/06/20 24 Frequent falls 09/06/2024 History of pulmonary embolus (PE) 01/01/2024 Chronic anticoagulation 01/01/2024 Aftercare following left hip joint replacement s urgery 01/01/2024 Preop cardiovascular exam 10/09/2023 Parkinson's disease 06/08/2020 Assessment & Plan (03/01/2021 3:18 PM CDT): Patient has had symptomatic improvement following increase in Sinemet dosing to 25/100 q.i.d.. She has no tolerability issues with medication. I will maintain her Sinemet as present schedule dosing and see her back in 1 year. Assessment & Plan (09/07/2020 3:18 PM ENGINEERING VICE PRESIDENT): Patient has sided interval improvement with initiation of Sinemet treatment. While her tremors not gone it is lessened and her stiffness and slowness previously seen on examination are no longer present. In an effort to further reduce tremor, I will increase her Sinemet to 25/100 q.i.d.. I will see her back in 6 months time for reassessment. Assessment & Plan (06/08/2020 11:29 AM CDT): Patient has several month history of left upper extremity resting pill-rolling type tremor, cogwheeling on exam suggesting Parkinson's disease. She took primidone with no impact. I will place her on a trial of Sinemet 25/100 b.i.d., and I will plan on seeing her back in 3 months time for neurological re-evaluation. 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 Her medications as well as medication monitoring laboratory or completed by PCP. Assessment & Plan (09/07/2020 3:18 PM ENGINEERING VICE PRESIDENT): Patient's seizures remain controlled on Dilantin treatment. It is being filled through her PCP as well as medication monitoring laboratory. Assessment & Plan (06/08/2020 11:30 AM CDT): Patient has lifelong history of simple partial seizures involving the right upper extremity. She continues on phenobarbital and phenytoin with her last seizure being in excess of 20 years ago. Her phenytoin and phenobarbital her being prescribed by her PCP with medical monitoring being performed via PCP as well. Cerebral palsy 06/08/2020 Assessment & Plan (03/01/2021 3:18 PM CDT): Patient has cerebral palsy with right spastic hemiparesis. There is no interval change noted. 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 Assessment & Plan (06/08/2020 11:30 AM CDT): Patient's history of cerebral palsy with right spastic hemiparesis as a sequelae. Supportive care is indicated. PAF (paroxysmal atrial fibrillation) ([facility]) 0 04/03/2020 Bilateral lower extremity edema 03/14/2020 Premature atrial contractions 03/14/2020 FERMIN (dyspnea on exertion) 03/14/2020 Palpitations 03/14/2020 Vitamin D deficiency, unspecified 11/28/2018 Hypothyroidism, unspecified 11/28/2018 Hypertension 11/24/2018 Hypothyroidism 11/24/2018 History of seizures 11/24/2018 Shoulder arthritis 10/21/2018 Overview (10/21/2018): Added automatically from request for surgery [id number] Resolved Problems Problem Noted Date Diagnosed Date Resolved Date Primary osteoarthritis of left hip 10/24/2023 01/01/2024 Encounters Date Type Department Care Team Description 10/11/2024 Telephone [facility] Medical [facility] Cardiology [address] [place] [address] Deion Marin MD Hospitalization for a-fib; Atrial Fibrillation 09/09/2024 Orders Only [facility] Health Information Management [address] [place] [address] Deion Marin MD 09/06/2024 12:00 PM ENGINEERING VICE PRESIDENT Office Visit [facility] Medical [facility] Cardiology [address] [place] [address] Deion Marin MD PAF (paroxysmal atrial fibrillation) (CMS/HCC) (HCC) (Primary Dx); Primary hypertension; Chronic anticoagulation; History of pulmonary embolus (PE); Premature atrial contractions; Headache due to injury of head and neck; Frequent falls from Last 3 Months Immunizations Name Administration Dates Next Due ZOSTER Recombinant 02/11/2022 Surgical History Surgery Date Site/Laterality Comments HYSTERECTOMY APPENDECTOMY BREAST SURGERY Left Right TONSILLECTOMY JOINT REPLACEMENT Reverse total shoulder right DILATION AND CURETTAGE OF UTERUS twice TUBAL LIGATION Medical History Medical History Date Comments History of seizure Hypothyroid History of UTI Hypertension Osteoarthritis Scoliosis Falls frequently per patient History of petit-mal seizures Cataracts, bilateral Arthritis Parkinson's disease (HCC) Osteoporosis Delayed emergence from general anesthesia Arrhythmia a fib Pneumonia Seizures (HCC) petit mal siezur es Stroke (HCC) at per patient partially paralyzed right side Family History Medical History Relation Name Comments Heart disease Father William Hensley Heart failure Father William Hensley Prostate cancer Father William Hensley Colon cancer Mother Kala Hensley Heart disease Mother Kala Hensley Heart failure Mother Kala Hensley Arthritis Other Cancer Other Relation Name Status Comments Father William Hensley (Age 84) Mother Kala Hensley (Age 81) Other Social History Tobacco Use Types Packs/Day Years Used Date Smoking Tobacco: Never Smokeless Tobacco: Never Tobacco Cessation:Counseling Given: Not Answered Alcohol Use Standard Drinks/Week Comments No 0 (1 standard drink = 0.6 oz pur e alcohol) [facility] Utilities Answer Date Recorded In the past 12 months has th e electric, gas, oil, or water company threatened to shut off services in your home? No 11/04/2023 Social Connection and Isolat ion Panel [NHANES] Answer Date Recorded In a typical week, how many times do you talk on the phone with family, friends, or neighbors? More than three times a week 11/04/2023 How often do you get togethe r with friends or relatives? More than three times a week 11/04/2023 How often do you attend chur ch or alevism services? 1 to 4 times per year 11/04/2023 Do you belong to any clubs o r organizations such as yarsani groups, unions, fraternal or athletic groups, or school groups? No 11/04/2023 How often do you attend meet ings of the clubs or organizations you belong to? Patient declined 11/04/2023 Are you , , di vorced, , never , or living with a partner? 11/04/2023 AUDIT-C Answer Date Recorded Q1: How often do you have a drink containing alcohol? Never 10/27/2023 Q2: How many drinks containi ng alcohol do you have on a typical day when you are drinking? Patient does not drink Q3: How often do you have si x or more drinks on one occasion? Never 10/27/2023 Overall Financial Resource Strain (CARDIA) Answe r Date Recorded How hard is it for you to pa y for the very basics like food, housing, medical care, and heating? Somewhat hard 11/04/2023 PHQ-2 Answer Date Recorded PHQ-2 Total Score (If total score is 3 or more points, staff should administer the PHQ-9) 0 11/03/2023 PRAPARE - Transportation Answer Date Re corded In the past 12 months, has l ack of transportation kept you from medical appointments or from getting medications? No 10/23 In the past 12 months, has l ack of transportation kept you from meetings, work, or from getting things needed for daily living? No 11/04/2023 Housing Stability Vital Sign Answer North e Recorded In the last 12 months, was t here a time when you were not able to pay the mortgage or rent on time? No 11/04/2023 In the last 12 months, how many places have you lived? 1 11/04/2023 In the last 12 months, was t here a time when you did not have a steady place to sleep or slept in a long-term (including now)? No 11/04/2023 Personal Safety Answer Date Recorded Have you ever been in or are you currently in a harmful physical or emotional relationship or is someone making you feel afraid or unsafe? Denies 11/03/2023 Comments No Sex and Gender Information Value Date Recorded Sex Assigned at Not on file Legal Sex Female 10:51 AM ENGINEERING VICE PRESIDENT Gender Identity Female 03/13/2020 12:13 PM CDT Sexual Orientation Not on file Obstetrics History Last Filed Vital Signs Vital Sign Reading Time Taken Comments Blood Pressure 160/80 09/06/2024 12:06 PM ENGINEERING VICE PRESIDENT Pulse 59 09/06/2024 12:06 PM ENGINEERING VICE PRESIDENT Temperature 36.8 ??C (98.2 ??F) 11/07/2023 8:06 AM CS T Respiratory Rate 18 06/07/2024 11:14 AM CDT Oxygen Saturation 99% 09/06/2024 12:06 PM ENGINEERING VICE PRESIDENT Inhaled Oxygen Concentration - - Weight 60.8 kg (134 lb) 09/06/2024 12:06 PM ENGINEERING VICE PRESIDENT Height 162.6 cm (5' 4 ) 09/06/2024 12:06 PM ENGINEERING VICE PRESIDENT Body Mass Index 23 09/06/2024 12:06 PM ENGINEERING VICE PRESIDENT Plan of Treatment Health Maintenance Due Date Last Done Comments Osteoporosis Screening-Bone Density Scan 1940 DTaP/Tdap/Td Vaccine (1 - Tdap) 12/15/1951 Hepatitis B Screening 1958 Pneumococcal vaccine 65+ (1 of 1 - PCV) 2005 Well Visit 65+ 2005 Zoster Vaccine (2 of 2) 04/08/2022 02/11/2022 Covid-19 Vaccine ( season) 2024 08/02/2021, 11/22/2020, 11/01/2020 Influenza Vaccine (#1) 2024 Depression Screening 10/24/2024 10/24/2023 Fall Risk Assessment 11/07/2024 11/07/2023, 10/24/2023, 07/21/2020 Medical Devices Implanted Type Area Associate Automation Engineer Device Identifier Shelf Expiration Date Model / Serial / Lot [employer] [id number] Delta Xtend 27mm Cementless Shoulder Standard Component Glenoid Latex Free - [id number] Implanted:Qty: 1 on 11/25/2018 by Jesse Casas MD at [facility] [employer] [id number] / / [employer] [id number] Delta Xtend 4.5mm 42mm Lock Shoulder Glenoid Screw Bone Metaglene - [id number] Implanted:Qty: 1 on 11/25/2018 by Jesse Casas MD at [facility] [employer] [id number] / / [employer] [id number] Delta Xtend 38mm Glenosphere Shoulder Eccentric Component Glenoid Latex Free - [id number] Implanted:Qty: 1 on 11/25/2018 by Jesse Casas MD at [facility] [employer] [id number] / / [employer] [id number] Delta Xtend 4.5mm 36mm Lock Shoulder Glenoid Screw Bone Metaglene - [id number] Implanted:Qty: 1 on 11/25/2018 by Jesse Casas MD at [facility] [employer] [id number] / / [employer] [id number] Delta Xtend Cementless Modular Shoulder Right Epiphysis 155d 1 Latex Free - [id number] Implanted:Qty: 1 on 11/25/2018 by Jesse Casas MD at [facility] [employer] [id number] / / [employer] [id number] Global Unite 8mm 107mm Modular Shoulder Standard Stem Humeral - [id number] Implanted:Qty: 1 on 11/25/2018 by Jesse Casas MD at [facility] [employer] [id number] / / [employer] [id number] Delta Xtend 38mm Shoulder +6mm Standard Cup Humeral Polyethylene Latex Free - [id number] Implanted:Qty: 1 on 11/25/2018 by Jesse Casas MD at [facility] [employer] [id number] / / [employer] Delcambre 56mm 36mm Hip Neutral Liner Acetabular Altrx Sterile Latex Free [id number] - [id number] Implanted:Qty: 1 on 11/03/2023 by Andrew Vegas MD at [facility] Left: Hip [employer] 07/22/2028 [id number] / / [id number] [employer] Delcambre 6.5mm 35mm Acetabular Cancellous Screw Bone Sterile 1217-35-500 - [id number] Implanted:Qty: 1 on 11/03/2023 by Andrew Vegas MD at [facility] Left: Hip [employer] 07/22/2033 1217-35-500 / / [id number] [employer] Actis Collar Hip 7 High Offset Stem Femoral [id number] - [id number] Implanted:Qty: 1 on 11/03/2023 by Andrew Vegas MD at [facility] Left: Hip [employer] 12/20/2032 [id number] / / [id number] [employer] Articul/Jamel 36mm Cementless Hip +1.5mm 12/14 Taper Head Femoral Latex Free [id number] - [id number] Implanted:Qty: 1 on 11/03/2023 by Andrew Vegas MD at [facility] Left: Hip [employer] 08/21/2028 [id number] / / [id number] [employer] Delcambre 56mm Sector Hip Shell Acetabular Gription Sterile Latex Free [id number] - [id number] Implanted:Qty: 1 on 11/03/2023 by Andrew Vegas MD at [facility] Left: Hip [employer] 03/21/2033 [id number] / / [id number] Explanted Type Area Associate Automation Engineer Device Identifier Shelf Expiration Date Model / Serial / Lot [employer] [id number] Steinmann 3/32in 9in 2 Trocar Pin Fixation Nonsterile - [id number] Explanted:Qty: 1 on 11/25/2018 at [facility] [employer] [id number] / / Procedures Procedure Name Priority Date/Time Associated Diagnosis Comments SCAN - RADIOLOGY/IMAGING 09/09/2024 from Last 3 Months Results * SCAN - RADIOLOGY/IMAGING (09/09/2024) Anatomical Region Laterality Modality Other us Deion Marin MD Final Res ult from Last 3 Months Insurance MEDICARE [facility] [place] [address] MEDICARE [employer] [place] [place] MEDICARE [employer] MEDICARE Advance Directives For more information, please contact: [phone] Documents on File Type Date Recorded Patient In Home Nanny Expl anation ADVANCE DIRECTIVE 12/01/2018 4:58 AM POWER OF FISH GRADER-MEDICAL * Full Code (Latest Code Status on File) Date Activated Date Inactivated Comments 11/03/2023 12:28 PM 11/07/2023 5:32 PM * Full Code Date Activated Date Inactivated Comments 11/25/2018 2:08 PM 11/28/2018 7:12 PM Care Teams Plant Cytologist Relationship Specialty Start Date End Date Odell Kinney DO [address] [place] [address] [address] [place] [address] PCP - General Internal Medicine 04/15/24 Bobo Lim PA [address] [place] [address] Physician Data Base Administrator 12/02/23 Andrew Vegas MD [address] [place] [address] [place] [address] Surgeon Orthopedic Surgery 11/06/23
--- OUTSIDE RECORDS SUMMARY | 2024-10-14 08:55 | XMS_ITS | Encounter Summary ---
Author Organization [facility] Healthcare Address [address] [place] [address] Care Team Providers Care Government Program Manager Name Role Phone Bobo Lim Primary Care Provider Bobo iLm Primary Care Provider Bobo Lim Unavailable [phone] Andrew Vegas MD Unavailable [phone] Odell Kinney DO Primary Care Provider [phone] Encounter Details Date Type Department Care Team (Late st Contact Info) Description 11/29/2023 Orders Only [facility] [place] Information Management [address] [place] [address] Scanning, Provider Social History Tobacco Use Types Packs/Day Years Used Date Smoking Tobacco: Never Smokeless Tobacco: Never Alcohol Use Standard Drinks/Week Comments No 0 (1 standard drink = 0.6 oz pur e alcohol) [facility] Utilities Answer Date Recorded In the past 12 months has [employer] electric, gas, oil, or water company threatened [...] often do you attend chur ch or gnosticism services? 1 to 4 times per year 11/04/2023 Do you belong to any clubs o r organizations such as protestant groups, unions, fraternal or athletic groups, or [...] No 11/04/2023 Housing Stability Vital Sign Answer Nroth e Recorded In the last 12 months, [...] place to sleep or slept in a intermediate (including now)? No 11/04/2023 Personal Safety Answer Date Recorded Have you ever been in or are you currently in a harmful physical or emotional relationship or is someone making you feel afraid or unsafe? Denies 11/03/2023 Comments No Sex and Gender Information Value Date Recorded Sex Assigned at Not on file Legal Sex Female 10:51 AM W[employer] SYSTEMS ADMINISTRATOR Gender Identity Female 03/13/2020 12:13 PM CDT Sexual Orientation Not on file documented as of this encounter Plan of Treatment Not on file documented as of this encounter Procedures Procedure Name Priority Date/Time Associated Diagnosis Comments SCAN - RADIOLOGY/IMAGING 11/29/2023 documented in this encounter Results * SCAN - RADIOLOGY/IMAGING (11/29/2023) Anatomical Region Laterality Modality Other us Provider Scanning Edited Result - Final documented in this encounter Visit Diagnoses Not on filedocumented in this encounter Additional Health Concerns Infection Onset Date Last Indicated Resolved Time COVID: Recovered Comment:Added based on recent COVID infection. 11/17/2023 11/25/2023 02/15/2024 3:05 AM C DT documented as of this encounter Care Teams Government Program Manager Relationship Specialty Start Date End Date Bobo Lim PA [address] [address] PCP - General Physician Recycler Forklift Driver Truck Driver 12/07/18 12/01/23 Bobo Lim PA [address] [place] [address] PCP - General Physician Recycler Forklift Driver Truck Driver 12/02/23 04/14/24 Odell Kinney DO [address] [facility] [address] [place] [address] PCP - General Internal Medicine 04/15/24 Bobo Lim PA [address] [address] Physician Recycler Forklift Driver Truck Driver 12/02/23 Andrew Vegas MD [address] [place] [address] [address] [place] [address] Surgeon Orthopedic Surgery 11/06/23 documented as of this encounter
--- OUTSIDE RECORDS SUMMARY | 2024-10-14 08:55 | XMS_ITS | Referral Summary ---
Author Organization [place] [address] Address [address] [place] [address] Care Team Providers Care Fabrication And Assembly Supervisor Name Role Phone Bobo Lim Unavailable [phone] Andrew Vegas MD Unavailable Odell Kinney DO Primary Care Provider [phone] Encounters Date Type Department Care Team Description 10/11/2024 Telephone [facility] Medical Group Cardiology [address] [place] [address] Deion Marin MD Hospitalization for a-fib; Atrial Fibrillation 09/09/2024 Orders Only [facility] [address] [place] [address] Deion Marin MD 09/06/2024 12:00 PM ASSOCIATE DEAN Office Visit [facility] Medical Group Cardiology [address] [place] [address] Deion Marin MD PAF (paroxysmal atrial fibrillation) (CMS/HCC) (HCC) (Primary Dx); Primary hypertension; Chronic anticoagulation; History of pulmonary embolus (PE); Premature atrial contractions; Headache due to injury of head and neck; Frequent falls from Last 3 Months Allergies No known active allergies Medications PHENobarbital [...] Aftercare following left hip joint replacement s fabby 01/01/2024 Preop cardiovascular exam 10/09/2023 Parkinson's disease 06/08/2020 Assessment & Plan (03/01/2021 3:18 PM CDT): Patient has had symptomatic improvement following increase in Sinemet dosing to 25/100 q.i.d.. She has no tolerability issues with medication. I will maintain her Sinemet as present schedule dosing and see her back in 1 year. Assessment & Plan (09/07/2020 3:18 PM ASSOCIATE DEAN): Patient has sided interval improvement with initiation [...] PCP. Assessment & Plan (09/07/2020 3:18 PM ASSOCIATE DEAN): Patient's seizures remain controlled on Dilantin treatment. [...] noted. 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 Assessment & Plan (06/08/2020 11:30 AM CDT): Patient's history of cerebral palsy with right spastic hemiparesis as a sequelae. Supportive care is indicated. PAF (paroxysmal atrial fibrillation) (CMS/HCC) 0 04/03/2020 Bilateral lower extremity edema 03/14/2020 Premature atrial contractions 03/14/2020 FERMIN (dyspnea on exertion) 03/14/2020 Palpitations 03/14/2020 Vitamin D deficiency, unspecified 11/28/2018 Hypothyroidism, unspecified 11/28/2018 Hypertension 11/24/2018 Hypothyroidism 11/24/2018 History of seizures 11/24/2018 Shoulder arthritis 10/21/2018 Overview (10/21/2018): Added automatically from request for surgery [id number] Resolved Problems Problem Noted Date Diagnosed Date Resolved Date Primary osteoarthritis of left hip 10/24/2023 01/01/2024 Immunizations Name Administration Dates Next Due ZOSTER Recombinant 02/11/2022 Social History Tobacco Use Types Packs/Day Years Used Date Smoking Tobacco: Never Smokeless Tobacco: Never Tobacco Cessation:Counseling Given: Not Answered Alcohol Use Standard Drinks/Week Comments No 0 (1 standard drink = 0.6 oz pur e alcohol) [facility] Utilities Answer Date Recorded In the past 12 months has e [employer], gas, oil, or water [employer] threatened to shut off services in your [...] often do you attend chur ch or samaritan services? 1 to 4 times per year 11/04/2023 Do you belong to any clubs o r organizations such as catholic groups, unions, fraternal or athletic groups, or [...] place to sleep or slept in a skilled nursing (including now)? No 11/04/2023 Personal Safety Answer Date Recorded Have you ever been in or are you currently in a harmful physical or emotional relationship or is someone making you feel afraid or unsafe? Denies 11/03/2023 Comments No Sex and Gender Information Value Date Recorded Sex Assigned at Not on file Legal Sex Female 10:51 AM ASSOCIATE DEAN Gender Identity Female 03/13/2020 12:13 PM CDT Sexual Orientation Not on file Last Filed Vital Signs Vital Sign Reading Time Taken Comments Blood Pressure 160/80 09/06/2024 12:06 PM ASSOCIATE DEAN Pulse 59 09/06/2024 12:06 PM ASSOCIATE DEAN Temperature 36.8 ??C (98.2 ??F) 11/07/2023 8:06 AM CS T Respiratory Rate 18 06/07/2024 11:14 AM CDT Oxygen Saturation 99% 09/06/2024 12:06 PM ASSOCIATE DEAN Inhaled Oxygen Concentration - - Weight 60.8 kg (134 lb) 09/06/2024 12:06 PM ASSOCIATE DEAN Height 162.6 cm (5' 4 ) 09/06/2024 12:06 PM ASSOCIATE DEAN Body Mass Index 23 09/06/2024 12:06 PM ASSOCIATE DEAN Plan of Treatment Not on file Medical Devices Implanted Type Area Utility Aide Device Identifier Shelf Expiration Date Model / Serial / Lot [employer] [id number] Delta Xtend 27mm Cementless Shoulder Standard Component Glenoid Latex Free - [id number] Implanted:Qty: 1 on 11/25/2018 by Jesse Casas MD at [facility] [employer] [id number] / / [employer] [id number] Delta Xtend 4.5mm 42mm Lock Shoulder Glenoid Screw Bone Metaglene - [id number] Implanted:Qty: 1 on 11/25/2018 by Jesse Casas MD at [facility] [employer] [id number] / / [employer] [id number] Delta Xtend 38mm Glenosphere Shoulder Eccentric Component Glenoid Latex Free - [id number] Implanted:Qty: 1 on 11/25/2018 by Jesse Casas MD at [facility] [employer] [id number] / / [employer] [id number] Delta Xtend 4.5mm 36mm Lock Shoulder Glenoid Screw Bone Metaglene - [id number] Implanted:Qty: 1 on 11/25/2018 by Jesse Casas MD at [facility] [employer] [id number] / / [employer] [id number] Delta Xtend Cementless Modular Shoulder Right Epiphysis 155d 1 Latex Free - [id number] Implanted:Qty: 1 on 11/25/2018 by Jesse Casas MD at [facility] [employer] [id number] / / [employer] [id number] Global Unite 8mm 107mm Modular Shoulder Standard Stem Humeral - [id number] Implanted:Qty: 1 on 11/25/2018 by Jesse Casas MD at [facility] [employer] [id number] / / [employer] [id number] Delta Xtend 38mm Shoulder +6mm Standard Cup Humeral Polyethylene Latex Free - [id number] Implanted:Qty: 1 on 11/25/2018 by Jesse Casas MD at [facility] [employer] [id number] / / [employer] Clearlake 56mm 36mm Hip Neutral Liner Acetabular Altrx Sterile Latex Free [id number] - [id number] Implanted:Qty: 1 on 11/03/2023 by Andrew Vegas MD at [facility] Left: Hip [employer] 07/22/2028 [id number] / / [id number] [employer] Clearlake 6.5mm 35mm Acetabular Cancellous Screw Bone Sterile 1217-35-500 - [id number] Implanted:Qty: 1 on 11/03/2023 by Andrew Vegas MD at [facility] Left: Hip [employer] 07/22/2033 [id number] / / [id number] [employer] Actis Collar Hip 7 High Offset Stem Femoral [id number] - [id number] Implanted:Qty: 1 on 11/03/2023 by Andrew Vegas MD at [facility] Left: Hip [employer] 12/20/2032 [id number] / / [id number] [employer] Articul/Jamel 36mm Cementless Hip +1.5mm 09/04 Taper Head Femoral Latex Free [id number] - [id number] Implanted:Qty: 1 on 11/03/2023 by Andrew Vegas MD at [facility] Left: Hip [employer] 08/21/2028 [id number] / / [id number] [employer] Clearlake 56mm Sector Hip Shell Acetabular Gription Sterile Latex Free [id number] - [id number] Implanted:Qty: 1 on 11/03/2023 by Andrew Vegas MD at [facility] Left: Hip [employer] 03/21/2033 [id number] / / [id number] Explanted Type Area Utility Aide Device Identifier Shelf Expiration Date Model / Serial / Lot [employer] [id number] Steinmann 3/32in 9in 2 Trocar Pin Fixation Nonsterile - [id number] Explanted:Qty: 1 on 11/25/[address] [facility] [employer] [id number] / / Procedures Procedure Name Priority Date/Time Associated Diagnosis Comments SCAN - RADIOLOGY/IMAGING 09/09/2024 from Last 3 Months Results * SCAN - RADIOLOGY/IMAGING (09/09/2024) Anatomical Region Laterality Modality Other us Deion Marin MD Final Res ult from Last 3 Months Insurance MEDICARE [employer] [place] [employer] [place] [employer] [place] MEDICARE [facility] [place] [address] MEDICARE Advance Directives For more information, please contact: [phone] Documents on File Type Date Recorded Patient Fowl Blood Tester Expl anation ADVANCE DIRECTIVE 12/01/2018 4:58 AM POWER OF JAIL OFFICER-MEDICAL * Full Code (Latest Code Status on File) Date Activated Date Inactivated Comments 11/03/2023 12:28 PM 11/07/2023 5:32 PM * Full Code Date Activated Date Inactivated Comments 11/25/2018 2:08 PM 11/28/2018 7:12 PM Care Teams Fabrication And Assembly Supervisor Relationship Specialty Start Date End Date Odell Kinney DO [address] [place] [address] PCP - General Internal Medicine 04/15/24 Bobo Lim PA [address] [place], [place] [address] Physician Line Puller 12/02/23 Andrew Vegas MD [address] [place] [address] [address] [place] [address] Surgeon Orthopedic Surgery 11/06/23
== END 2024-10-12 15:45 | DRG 310 ==
LOC: ANHED 11:33 → ANHIMU 14:17 → ANH3MED 19:58
PROVIDERS: Physician Assistant; Admitting Provider Hospitalist; Emergency Provider Emergency Medicine; PCP Family Medicine; Visit Provider Nurse Practitioner
DX: I48.0 Paroxysmal atrial fibrillation (principal); I48.92 Unspecified atrial flutter; E03.9 Hypothyroidism, unspecified; E55.9 Vitamin D deficiency, unspecified; I10 Essential (primary) hypertension; G80.9 Cerebral palsy, unspecified; G20.A1 Parkinson's disease without dyskinesia, without mention of fluctuations; G40.909 Epilepsy, unspecified, not intractable, without status epilepticus; Z86.711 Personal history of pulmonary embolism; Z79.01 Long term (current) use of anticoagulants; Z96.642 Presence of left artificial hip joint; Z96.611 Presence of right artificial shoulder joint
CPT/HCPCS: 36415; 71045; 80048; 80053; 80184; 80185; 81003; 83735; 84443; 85025; 85610; 85730; 93005; 96361; 96365; 96366; 96375; 97110; 97161; 97165; 97530; 97535; 99285; A9270; G0378; J7030

== ENCOUNTER 2024-12-27 14:49 | Inpatient (IN) | payer MEDICARE, OTHER, MEDICAID, SELFPAY ==
[2024-12-27] VITALS (19 sets, daily range): BP systolic 111–149; BP diastolic 62–99; PULSE 96–120; RESP 15–30; TEMP 36.6; O2SAT 94–100; BMI 22.9
--- NOTE | ~2024-12-27 | CT_ITS ---
History: Vertigo PROCEDURE: CT head without contrast. COMPARISON: 09/09/2024 TECHNIQUE: Axial imaging of the head performed from the skull base to the vertex without IV contrast. Sagittal a nd coronal reformations obtained. DLP: 681 mGy-cm FINDINGS: The ventricles are enlarged. The dilatation of the ventricles is proportional to the degree of sulcal prominence, not uncommon in the senescent brain. Decreased attenuation is identified within the periventricular white matter, likely secondary to micr ovascular ischemic disease, in a patient of this age. There is no mass, mass effect or midline shift. There is no abnormal extra-axial fluid collection or intracranial hemorrhage. Visualized paranasal sinuses are clear. The mastoid air cells are well aerated. No acute displaced fractures within the overlying cranium. Impression: No acute intracranial hemorrhage or suspicious mass effect. Reviewed, dictated and finalized at location A. Impression: No acute intracranial hemorrhage or suspicious mass effect.
--- NOTE | ~2024-12-27 | XR_ITS ---
CHEST RADIOGRAPH, PA AND LATERAL CLINICAL HISTORY: Palpitations . COMPARISON: 10/09/2024 TECHNIQUE: PA and lateral views of the chest. FINDINGS Amplatzer device projecting over the left atrial appendage, an interval change from most recent exami nation dated 10/09/2024. The remainder of the cardiomediastinal silhouette is otherwise unremarkable. The lungs are clear. IMPRESSION: No focal infiltrate or effusion. Reviewed, dictated and finalized at location A.
--- NOTE | 2024-12-27 14:53 | ECG_ITS ---
Test Date: 2024-12-27 15:26:51 Measurements Intervals [place] Rate: 115 P: 0 CO: 0 QRS: -5 QRSD: 78 T: 43 QT: 350 QTc: 486 Interpretive Statements ATRIAL FIBRILLATION WITH RAPID VENTRICULAR RESPONSE CANNOT R/O SEPTAL INFARCT, AGE INDETERMINATE BASELINE ARTIFACT- I, II, AVR ABNORMAL ECG Compared to ECG 10/09/2024 10:40:38 NO SIGNIFICANT CHANGE Electronically Signed On 12-27-2024 16:25:43 CDT by Levar Reece D.O.
[2024-12-27 15:57] LABS: Basophils Absolute Auto 0.1 K/mm3 (0.0-0.1); Basophils Percent Auto 1.3 % (0.2-1.2); Eosinophils Absolute Auto 0.4 K/mm3 (0-0.3); Eosinophils Percent Auto 9.4 % (0-4.4); Hematocrit 36.9 % (37.0-47.0); Hemoglobin 11.9 g/dL (12.0-15.0); Immature Granulocyte Absolute 0.01 K/mm3 (0.00-0.031); Immature Granulocyte Percent A 0.2 % (0-0.5); Lymphocytes Absolute Auto 1.43 K/mm3 (0.9-3.2); Lymphocytes Percent Auto 31.2 % (18.3-44.2); Mean Corpuscular HGB Conc 32.2 g/dl (32-36); Mean Corpuscular Hemoglobin 32.6 pg (26-34); Mean Corpuscular Volume 101.1 fl (80-100); Mean Platelet Volume 9.1 fl (7.4-10.4); Monocytes Absolute Auto 0.5 K/mm3 (0.1-0.6); Monocytes Percent Auto 11.6 % (2.6-8.5); Neutrophils Absolute Auto 2.1 K/mm3 (1.3-6.7); Neutrophils Percent Auto 46.3 % (45.5-73.1); Platelet Count Result 244 k/mm3 (150-375); Red Blood Count 3.65 M/mm3 (4.2-5.4); Red Cell Distribution Width 13.5 % (11.5-14.5); White Blood Count 4.6 K/mm3 (4.5-10.0)
[2024-12-27 16:06] LABS: Alanine Aminotransferase 19 U/L (6-35); Albumin Level 4.3 g/dL (3.5-5.1); Alkaline Phosphatase 77 U/L (38-126); Anion Gap 9 mmol/L (4-12); Aspartate Amino Transferase 31 U/L (14-36); Bilirubin,Total 0.2 mg/dL (0.2-1.3); Blood Urea Nitrogen 33 mg/dL (7-17); Calcium 9.3 mg/dL (8.4-10.2); Carbon Dioxide 26 mmol/L (22-30); Chloride 104 mmol/L (98-107); Estimated CRCL calculation 33 ml/min; Estimated Glomerular Filt Rate 58; Glucose 86 mg/dL (65-110); Lipase 119 U/L (23-300); Potassium 4.3 mmol/L (3.4-5.0); Sodium 139 mmol/L (137-145)
[2024-12-27 16:08] LABS: INR 1.1; Partial Thromboplastin Time 25.4 Seconds (22.3-36.8); Prothrombin Time 14.4 Seconds (11.1-14.7)
[2024-12-27 16:18] LABS: Troponin I < 0.012 ng/mL (0.000-0.034)
--- OUTSIDE RECORDS SUMMARY | 2024-12-27 16:59 | XMS_ITS | Encounter Summary ---
Author Organization [facility] Healthcare Address [address] [place] [address] Care Team Providers Care Biogeographer Name Role Phone Bobo Lim Unavailable [phone] Andrew Vegas MD Unavailable [phone] Theodore Farrar MD Primary Care Provider [phone] Encounter Details Date Type Department Care Team (Late st Contact Info) Description 12/16/2024 [facility] Post Discharge Follow up phone call [place] [facility] [address] [place] [address] Yolanda Gaona Social History Tobacco Use Types Packs/Day Years Used Date Smoking Tobacco: Never Smokeless Tobacco: Never Alcohol Use Standard Drinks/Week Comments No 0 (1 standard drink = 0.6 oz pur e alcohol) [facility] Utilities Answer Date Recorded In the past 12 months has [employer], gas, oil, or water [employer] threatened to shut off services in your [...] week 11/04/2023 How often do you attend [facility] or sabianism services? 1 to 4 times per year 11/04/2023 Do you belong to any clubs o r organizations such as roman catholic groups, unions, fraternal or athletic groups, or school groups? No 11/04/2023 How often do you attend meet ings of the clubs or organizations you belong to? Patient declined 11/04/2023 Are you , , di vorced, , never , or living with a partner? 11/04/2023 AUDIT-C Answer Date Recorded Q1: How often do you have a drink containing alcohol? Never 12/09/2024 Q2: How many drinks containi ng alcohol do you have on a typical day when you are drinking? Patient does not drink Q3: How often do you have si x or more drinks on one occasion? Never 12/09/2024 Overall Financial Resource Strain (CARDIA) Answe r [...] making you feel afraid or unsafe? Denies 12/09/2024 Comments No Sex and Gender Information Value Date Recorded Sex Assigned at Not on file Legal Sex Female 10:51 AM WEIR FISHERMAN Gender Identity Female 03/13/2020 12:13 PM CDT Sexual Orientation Not on file documented as of this encounter Plan of Treatment Not on file documented as of this encounter Visit Diagnoses Not on filedocumented in this encounter Care Teams Biogeographer Relationship Specialty Start Date End Date Theodore Farrar MD [address] [place] [address] PCP - General Family Practice 11/06/24 Bobo Lim PA [address] [place] [address] Physician Brazing Machine Setter 12/02/23 Andrew Vegas MD [address] [place] [address] [address] [place] [address] Surgeon Orthopedic Surgery 11/06/23 documented as of this encounter
--- OUTSIDE RECORDS SUMMARY | 2024-12-27 17:00 | XMS_ITS | Encounter Summary ---
Author Organization [facility] Healthcare Address [address] [place] [address] Care Team Providers Care Podiatry Doctor Name Role Phone Bobo Lim Unavailable Andrew Vegas MD Unavailable [phone] Theodore Farrar MD Primary Care Provider [phone] Encounter Details Date Type Department Care Team (Late st Contact Info) Description 11/23/2024 Cardiology Conference [facility] Non-invasive Cardiac Diagnostic Testing [address] [place] [address] Ramos Negro, JESSE Social History Tobacco Use Types Packs/Day Years Used Date Smoking Tobacco: Never Smokeless Tobacco: Never Alcohol Use Standard Drinks/Week Comments No 0 (1 standard drink = 0.6 oz pur e alcohol) [facility] Utilities Answer Date Recorded In the past 12 months has [employer], gas, oil, or water [employer] threatened to shut off services in your [...] week 11/04/2023 How often do you attend [facility] or advent services? 1 to 4 times per year 11/04/2023 Do you belong to any clubs o r organizations such as spiritism groups, unions, fraternal or athletic groups, or [...] on file Legal Sex Female 10:51 AM HYDROGRAPHICAL TECHNICAL OFFICER Gender Identity Female 03/13/2020 12:13 PM CDT Sexual Orientation Not on file documented as of this encounter Plan of Treatment Not on file documented as of this encounter Visit Diagnoses Not on filedocumented in this encounter Care Teams Podiatry Doctor Relationship Specialty Start Date End Date Theodore Farrar MD [address] [place] [address] PCP - General Family Practice 11/06/24 Bobo Lim PA [address] [place] [address] Physician Optical Glass Wet Inspector 12/02/23 Andrew Vegas MD [address] [place] [address] [address] [place] [address] Surgeon Orthopedic Surgery 11/06/23 documented as of this encounter
--- OUTSIDE RECORDS SUMMARY | 2024-12-27 17:00 | XMS_ITS | Patient Health Record ---
Author Organization [facility] Address [address] [facility] [address] [place], [place] [address] Care Team Providers Care Internet Retailer Name Role Phone CARI ELINOR Unavailable [phone] Theodore Farrar Unavailable Unavailable ELINOR [place] Unavailable [phone] Allergies No Known Allergies Reason For Referral No Information Vital Signs Height-cm 170.18 cm 11/29/2024 Weight-kg 58.97 kg 11/29/2024 Height 67.00 in 11/29/2024 Weight 130 lbs 11/29/2024 BMI 20.36 kg/m2 11/29/2024 Encounters Encounter Location Date Provider Diagnosis [facility] [place] [address] [place] [id number] 11/29/2024 ELINOR SCHULTZ Tinea unguium B35.1 ; Pain in right foot M79.671 ; Pain in left foot M79.672 ; Atherosclerosis of [place] arteries of extremities with intermittent claudication, bilateral legs I70.213 and Acquired keratosis [keratoderma] palmaris et plantaris L85.1 [facility] [place] [address] [place], [place] [id number] 01/02/2024 ELINOR C[place]AND Onychomycosis B35.1 ; Pain in right toe(s) M79.674 ; Pain in left toe(s) M79.675 and Unspecified atherosclerosis of [place] arteries of extremities, bilateral legs I70.203 [facility] [place] [address] [place], [place] [id number] 03/11/2024 ELINOR C[place]AND Onychomycosis B35.1 ; Pain in right toe(s) M79.674 ; Pain in left toe(s) M79.675 and Unspecified atherosclerosis of [place] arteries of extremities, bilateral legs I70.203 [facility] [place] [address] [place] [id number] 05/13/2024 EILNOR C[place]AND Onychomycosis B35.1 ; Pain in right toe(s) M79.674 ; Pain in left toe(s) M79.675 and Unspecified atherosclerosis of [place] arteries of extremities, bilateral legs I70.203 [facility] [place] [address] [place] [id number] 07/15/2024 ELINOR C[place]AND Onychomycosis B35.1 ; Pain in right toe(s) M79.674 ; Pain in left toe(s) M79.675 and Unspecified atherosclerosis of [place] arteries of extremities, bilateral legs I70.203 [facility] [address] [place] [id number] 07/29/2024 ELINOR C[place]AND Onychomycosis B35.1 ; 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 ; Pain in right toe(s) M79.674 ; Pain in left toe(s) M79.675 and Unspecified atherosclerosis of [place] arteries of extremities, bilateral legs I70.203 [facility] [place] [address] [place] [id number] 09/16/2024 ELINOR CLEVELAND Onychomycosis B35.1 ; Pain in right toe(s) M79.674 ; Pain in left toe(s) M79.675 and Unspecified atherosclerosis of [place] arteries of extremities, bilateral legs I70.203 Assessments Encounter Date Diagnosis (ICD Code) Assessment Notes Treatment Notes Treatment Clinical Notes Section Notes 01/02/2024 Onychomycosis (ICD-10 - B35.1) 03/11/2024 Onychomycosis (ICD-10 - B35.1) 05/13/2024 Onychomycosis (ICD-10 - B35.1) 07/15/2024 Onychomycosis (ICD-10 - B35.1) 07/29/2024 Non-pressure chronic ulcer of other part of left foot limited to breakdown of skin (ICD-10 - L97.521) 07/29/2024 Onychomycosis (ICD-10 - B35.1) 09/16/2024 Onychomycosis (ICD-10 - B35.1) 11/29/2024 Tinea unguium (ICD-10 - B35.1) Nails 1-5 Bilateral were debrided extensively with nail nippers and emery board, reducing length and girth to pink healthy tissue with any subungual debris and necrotic tissue removed 11/29/2024 Pain in right foot (ICD-10 - M79.671) 11/29/2024 Pain in left foot (ICD-10 - M79.672) 09/16/2024 Pain in right toe(s) (ICD-10 - M79.674) 07/29/2024 Pain in right toe(s) (ICD-10 - M79.674) 07/15/2024 Pain in right toe(s) (ICD-10 - M79.674) 05/13/2024 Pain in right toe(s) (ICD-10 - M79.674) 03/11/2024 Pain in right toe(s) (ICD-10 - M79.674) 01/02/2024 Pain in right toe(s) (ICD-10 - M79.674) 01/02/2024 Pain in left toe(s) (ICD-10 - M79.675) 03/11/2024 Pain in left toe(s) (ICD-10 - M79.675) 05/13/2024 Pain in left toe(s) (ICD-10 - M79.675) 07/15/2024 Pain in left toe(s) (ICD-10 - M79.675) 07/29/2024 Pain in left toe(s) (ICD-10 - M79.675) 09/16/2024 Pain in left toe(s) (ICD-10 - M79.675) 11/29/2024 Atherosclerosis of [place] arteries of extremities with intermittent claudication, bilateral legs (ICD-10 - I70.213) 11/29/2024 Acquired keratosis [keratoderma] palmaris et plantaris (ICD-10 - L85.1) A total of 2 corns or calluses, as described in the note above, were cut and pared utilizing a #15 blade 09/16/2024 Unspecified atherosclerosis of [place] arteries of extremities, bilateral legs (ICD-10 - I70.203) 07/29/2024 Unspecified atherosclerosis of [place] arteries of extremities, bilateral legs (ICD-10 - I70.203) 07/15/2024 Unspecified atherosclerosis of [place] arteries of extremities, bilateral legs (ICD-10 - I70.203) 05/13/2024 Unspecified atherosclerosis of [place] arteries of extremities, bilateral legs (ICD-10 - I70.203) 03/11/2024 Unspecified atherosclerosis of [place] arteries of extremities, bilateral legs (ICD-10 - I70.203) 01/02/2024 Unspecified atherosclerosis of [place] arteries of extremities, bilateral legs (ICD-10 - I70.203) 01/02/2024 Other Nails 1-5 Bilateral were debrided [...] Of Treatment Next Appt Details Provider Name:ELINOR SCHULTZ, 02:40:00 PM, [address], [address], [id number], Insurance Providers Payer Name Payer Address Payer Phone Subscriber Number Group Number Insured Name Patient Relationship to Insured Coverage Start Date Coverage End Date Medicare Part B [facility] [address] [place] [phone] [id number] PRESLEY BRISCOE Self - patient is the insured [employer] [address] [place] [phone] [id number] PRESLEY BRISCOE Self - patient is the insured Medical (General) History Medical History History ICD Code Parkinson's disease
--- OUTSIDE RECORDS SUMMARY | 2024-12-27 17:00 | XMS_ITS ---
Author Name Amado Hastings Address [address] [place] [address] Phone [phone] Organization [facility] Address [address] [place] [address] Phone [phone] Care Team Providers Care Station Engineer Main Line Name Role Phone Amado Hastings Unavailable [phone] Fito Babb Unavailable [phone] [place] Paulino Unavailable Functional Status No Results Mental Status No Results Allergies and Intolerances Name Onset Date Reaction Severity No Known Allergies (Allergy) FriDec 15 12:22:00 EDT 2019 Medications Medication Directions Start Date End Date Stimulant Laxative Plus 8.6 mg-50 mg tablet 2 TABLETS TABLET Oral PRN 2 Times Daily Indication: stool softner Sun Nov 09 10:32:00 EST 2023Nov 25 01:00:00 EST 2023 phenytoin sodium extended 10 0 mg capsule 1 cap CAPSULE Oral 3 Times Daily Indication: Anticonvulsant FriNov 08 02:00:00 EST 2023Nov 08 13:10:00 EST 2023 HYDROcodone 5 mg-acetaminoph en 325 mg tablet 1-2 TABLETS TABLET Oral PRN Every 4 Hours Indication: PAIN DO NOT EXCEED 3GM/DAY APAP FROM ALL SOURCES FriNov 08 03:30:00 EST 2023Nov 25 01:00:00 EST 2023 carbidopa 25 mg-levodopa 100 mg tablet 1.5 TABLETS TABLET Oral 2 Times Daily Indication: Parkinson's Sat Feb 17 20:00:00 EST 2023Nov 25 01:00:00 EST 2023 carbidopa 25 mg-levodopa 100 mg tablet 1 TABLET TABLET Oral 2 Times Daily Indication: Parkinson's AT DINNER AND AT BEDTIME Sat Feb 17 11:54:00 EST 2023Nov 25 01:00:00 EST 2023 phenytoin sodium extended 10 0 mg capsule 1 cap CAPSULE Oral 3 Times Daily Indication: Anticonvulsant Sat Feb 17 13:09:00 EST 2023Nov 25 01:00:00 EST 2023 Vitamin C 500 mg chewable tablet 1 TABLET TABLET,CHEWABLE Oral 1 Time Daily Indication: supplement Fri Feb 16 13:53:00 2023Nov 25 01:00:00 EST 2023 aspirin 325 mg tablet,delaye d release 1 TABLET TABLET, DELAYED RELEASE (ENTERIC COATED) Oral 1 Time Daily Indication: pain/elevated temp Fri Feb 16 13:53:00 2023Nov 25 01:00:00 EST 2023 Calcium 500 500 mg calcium (1,250 mg) chewable tablet 1 TABLET TABLET,CHEWABLE Oral 1 Time Daily Indication: supplement Fri Feb 16 13:53:00 2023Nov 25 01:00:00 EST 2023 carbidopa 25 mg-levodopa 100 mg tablet 1.5 TABLETS TABLET Oral 2 Times Daily Indication: Parkinson's Fri Feb 16 13:53:00 EST 2023 Sat Feb 17 11:54:00 EST 2023 carbidopa 25 mg-levodopa 100 mg tablet 1 TABLET TABLET Oral 2 Times Daily Indication: Parkinson's AT DINNER AND AT BEDTIME Fri Feb 16 01:00:00 EST 2023 Sat Feb 17 11:55:00 EST 2023 celecoxib 200 mg capsule 1 CAPSULE CAPSU LE Oral 2 Times Daily Indication: pain reliever Fri Feb 16 13:53:00 EST 2023Nov 25 01:00:00 EST 2023 cholecalciferol (vitamin D3) 25 mcg (1,000 unit) capsule 10 CAPSULES CAPSULE Oral 1 Time Weekly Indication: supplement Fri Feb 16 13:53:00 EST 2023Nov 25 01:00:00 EST 2023 cyanocobalamin (vit B-12) 1,000 mcg tablet 1 TABLET TABLET Oral 3 Times Weekly Indication: supplement Fri Feb 16 13:53:00 EST 2023Nov 25 01:00:00 EST 2023 phenytoin sodium extended 10 0 mg capsule 1 CAPSULE CAPSULE Oral 3 Times Daily Indication: Anticonvulsant Fri Feb 16 13:53:00 EST 2023 Sat Feb 17 03:30:00 EST 2023 Colace Clear 50 mg capsule 1 CAPSULE CAP ANASTACIO Oral 2 Times Daily Indication: stool softner Fri Feb 16 16:23:00 2023Nov 25 01:00:00 EST 2023 FeroSuL 325 mg (65 mg iron) tablet 1 TABLET TABLET Oral 1 Time Daily Indication: Iron supplement WITH BREAKFAST Fri Feb 16 13:53:00 2023 Sun Feb 18 10:33:00 EST 2023 hydroCHLOROthiazide 12.5 mg tablet 1 TABLET TABLET Oral 1 Time Daily Indication: Diuretic Fri Feb 16 13:53:00 EST 2023Nov 25 01:00:00 EST 2023 levothyroxine 88 mcg tablet 1 TABLET TAB LET Oral 1 Time Daily Indication: hypothyroidism Fri Feb 16 13:53:00 2023Nov 25 01:00:00 EST 2023 metoprolol tartrate 25 mg tablet 1 TABLET TABLET Oral 2 Times Daily Indication: HTN Fri Feb 16 13:53:00 2023Nov 25 01:00:00 EST 2023 multivitamin tablet 1 TABLET TABLET Oral 1 Time Daily Indication: vitamin Fri Feb 16 13:53:00 2023Nov 25 01:00:00 EST 2023 ondansetron 4 mg disintegrating tablet 1 TABLET TABLET,DISINTEGRATING Oral PRN Every 6 Hours Indication: NAUSEA / VOMITING Fri Feb 16 13:53:00 2023Nov 25 01:00:00 EST 2023 PHENobarbitaL 30 mg tablet 1 TABLET TABL ET Oral 3 Times Daily Indication: anticonvulsant Fri Feb 16 13:53:00 EST 2023Nov 25 01:00:00 EST 2023 Stimulant Laxative Plus 8.6 mg-50 mg tablet 2 TABLETS TABLET Oral 2 Times Daily Indication: stool softner Fri Feb 16 13:53:00 2023 Sun Feb 18 10:33:00 EST 2023 acetaminophen 325 mg tablet 325 mg TABLE T Oral PRN Every 6 Hours Indication: PAIN As needed for pain/elevated temperature.DO NOT EXCEED 3GM/DAY APAP FROM ALL SOURCES Fri Feb 16 13:53:00 2023 06 01:00:00 EST 2023 TubersoL 5 tub. unit/0.1 mL intradermal injection solution 0.1 ml VIAL (ML) Intradermal 1 Time Weekly for 2 Weeks Indication: TB 1st injection on admission, then one week after. Read between 48 and 72 hours FriNov 07 01:00:00 2023Nov 20 00:59:00 2023 TubersoL 5 tub. unit/0.1 mL intradermal injection solution Read Results VIAL (ML) Other 1 Time Weekly for 2 Weeks Indication: TB Read results between 48-72 hours after 1st and 2nd (1 week apart). If positive do chest x-ray. FriNov 07 01:00:00 2023Nov 20 00:59:00 2023 metoprolol tartrate 25 mg tablet 1 tab TABLET Oral 2 Times Daily BP and/or Pulse Hold: Systolic Blood Pressure < 90 Hold;Pulse < 50 Hold;. FriApr 03 17:00:00 2019Apr 10 01:00:00 2019 aspirin 325 mg tablet 325mg TABLET Oral 1 Time Daily Blood thinner FriApr 04 07:00:00 2019Apr 10 01:00:00 2019 Dilantin Extended 100 mg capsule 1 cap CAPSULE Oral 15 Times Weekly for 1 Week Resident takes Dilantin TID for 2 days then BID for 1 day then order repeats. FriMar 31 09:00:00 T 2019Apr 07 08:59:00 2019 Dilantin Extended 100 mg capsule 1 cap CAPSULE Oral 6 Times Weekly for 1 Week Resident takes BID for one day the TID for 2 days then order repeats FriApr 02 09:00:00 2019Apr 09 08:59:00 2019 Dilantin Extended 100 mg capsule 1 cap CAPSULE Oral 15 Times Weekly for 1 Week Resident takes Dilantin TID for 2 days then BID for 1 day then order repeats. FriApr 07 09:00:00 2019Apr 10 01:00:00 2019 Dilantin Extended 100 mg capsule 1 cap CAPSULE Oral 6 Times Weekly for 1 Week Resident takes BID for one day the TID for 2 days then order repeats FriApr 11 09:00:00 2019Apr 10 01:00:00 2019 hydroCHLOROthiazide 12.5 mg tablet 1 tablet TABLET Oral 1 Time Daily BP and/or Pulse Hold: Systolic Blood Pressure < 120 Hold;. HF FriMar 30 07:00:00 2019Apr 10 01:00:00 2019 metoprolol tartrate 25 mg tablet 0.5 tab TABLET Oral 2 Times Daily BP and/or Pulse Hold: Systolic Blood Pressure < 100 Hold;Pulse < 60 Hold;. FriMar 29 15:00:00 2019Apr 03 17:32:00 2019 hydroCHLOROthiazide 25 mg tablet 1 tablet TABLET Oral 1 Time Daily hold to SBP below 130 FriMar 28 09:00:00 2019Mar 29 15:44:00 2019 losartan 25 mg tablet 1 tablet TABLET Or al 1 Time Daily hold for SBP below 130 e Mar 28 09:00:00 2019Mar 29 15:44:00 2019 ergocalciferol (vitamin D2) 1,250 mcg (50,000 unit) capsule 1 cap CAPSULE Oral 2 Times Weekly FriMar 30 09:00:00 2019Apr 10 01:00:00 2019 TylenoL 325 mg tablet 2 tablets TABLET O ral PRN Every 4 Hours for pain/ fever, not to exceed 4 grams in 24 hrs FriMar 27 13:00:00 2019Apr 10 01:00:00 2019 PHENobarbitaL 30 mg tablet 1 tablet TABL ET Oral 3 Times Daily FriMar 24 12:00:00 2019Apr 10 01:00:00 2019 primidone 50 mg tablet 1 tablet TABLET O ral 1 Time Daily FriMar 24 01:00:00 2019Apr 10 01:00:00 2019 metoprolol tartrate 25 mg tablet 1 tablet TABLET Oral 2 Times Daily HTN Sat Mar 25 09:00:00 2019Mar 29 15:50:00 2019 TUBErsoL 5 tub. unit/0.1 mL intradermal injection solution 0.1 ml VIAL (ML) Intradermal 1 Time Weekly for 2 Weeks (PPD) 1st injection upon admission. Read between 48 and 72 hours and give 2nd injection 1 week after the 1st if result is negative. If positive result, proceed with chest x-ray to rule out active disease. FriMar 23 01:00:00 2019Apr 06 00:59:00 2019 TUBErsoL 5 tub. unit/0.1 mL intradermal injection solution Read Results VIAL (ML) Other 1 Time Weekly for 2 Weeks Read results between 48-72 hours after 1st and 2nd 1 week apart. If positive do chest x-ray to rule out active disease. FriMar 23 01:00:00 2019Apr 06 00:59:00 2019 Dilantin Extended 100 mg capsule 1 cap CAPSULE Oral 12 Times Weekly for 1 Week FriMar 24 07:00:00 2019Mar 31 06:59:00 2019 Dilantin Extended 100 mg capsule 1 cap CAPSULE Oral 6 Times Weekly for 1 Week FriMar 24 07:00:00 2019Mar 31 06:59:00 2019 calcium carbonate 500 mg calcium (1,250 mg) tablet 2 tablets TABLET Oral 1 Time Daily dx, supplement FriMar 22 14:45:00 2019Apr 10 01:00:00 2019 Vitamin B-12 1,000 mcg tablet 1 tablet T ABLET Oral 1 Time Daily FriMar 22 14:45:00 2019Apr 10 01:00:00 2019 PHENobarbitaL 30 mg tablet 1 tablet TABL ET Oral 3 Times Daily FriMar 22 17:00:00 2019Mar 22 16:39:00 2019 levothyroxine 88 mcg tablet 1 tablet TAB LET Oral 1 Time Daily FriMar 22 17:00:00 2019Apr 10 01:00:00 2019 PHENobarbitaL 30 mg tablet 1 tablet TABL ET Oral 3 Times Daily FriMar 22 17:00:00 2019Mar 24 10:36:00 2019 hydroCHLOROthiazide 25 mg tablet 1 tablet TABLET Oral 1 Time Daily FriMar 22 17:00:00 2019Mar 27 16:28:00 2019 losartan 25 mg tablet 2 tablets TABLET O ral 1 Time Daily FriMar 22 17:00:00 2019Mar 27 16:28:00 2019 Centrum Silver Women 8 mg iron-400 mcg-300 mcg tablet 1 tablet TABLET Oral 1 Time Daily FriMar 22 17:00:00 2019Apr 10 01:00:00 2019 aspirin 81 mg tablet,delayed release 1 tablet TABLET, DELAYED RELEASE (ENTERIC COATED) Oral 1 Time Daily FriMar 22 17:00:00 2019Apr 03 19:28:00 2019 primidone 50 mg tablet 1 tablet TABLET O ral 1 Time Daily FriMar 22 17:00:00 2019Mar 24 10:37:00 2019 Vitamin D3 50 mcg (2,000 uni t) capsule 1 capsule CAPSULE Oral 1 Time Daily FriMar 22 17:00:00 2019Mar 27 16:28:00 2019 Dilantin Extended 100 mg capsule 1 capsule CAPSULE Oral 3 Times Daily for 2 Days FriMar 23 01:00:00 2019Mar 23 18:28:00 2019 Dilantin Extended 100 mg capsule 1 capsule CAPSULE Oral 3 Times Daily for 2 Days FriMar 26 01:00:00 2019Mar 23 18:28:00 2019 Dilantin Extended 100 mg capsule 1 capsule CAPSULE Oral 2 Times Daily for 1 Day FriMar 25 01:00:00 2019Mar 23 18:28:00 2019 Dilantin Extended 100 mg capsule 1 capsule CAPSULE Oral 2 Times Daily for 1 Day FriMar 28 01:00:00 2019Mar 23 18:28:00 2019 acetaminophen 325 mg capsule 1 cap (CAPS ULE) Oral Every 6 Hours, PRN FriDec 16 01:00:00 2018Jan 01 01:00:00 2018 aspirin 325 mg tablet 1 tab (TABLET) Ora l 2 Times Daily FriDec 16 01:00:00 2018Jan 01 01:00:00 ED2018 cyanocobalamin (vit B-12) 1,000 mcg tablet 1 tab (TABLET) Oral 3 Times Daily FriDec 16 01:00:00 2018Jan 01 01:00:00 ED2018 levothyroxine 88 mcg tablet 1 tab (TABLE T) Oral Every Morning FriDec 16 01:00:00 2018Jan 01 01:00:00 ED2018 Vitamin D2 50,000 unit capsule 1 cap (CA PSULE) Oral Every 1 Week fridayDec 16 01:00:00 2018Jan 01 01:00:00 2018 PHENobarbital 30 mg tablet 1 tab (TABLET ) Oral 3 Times Daily FriDec 16 01:00:00 2018Jan 01 01:00:00 ED2018 losartan 100 mg-hydrochlorothiazide 12.5 mg tablet 1 tab (TABLET) Oral Every 1 Day FriDec 16 01:00:00 ED2018Jan 01:00:00 ED2018 multivitamin tablet 1 tab (TABLET) Oral Every 1 Day FriDec 16:00:00 2018Jan 01:00:00 ED2018 Dilantin Extended 100 mg capsule 1 tab (CAPSULE) Oral 2 Times Daily for 1 day, then tid for 2 days FriDec 16:00:00 ED2018Jan 01 01:00:00 ED2018 senna 8.6 mg tablet 1 tab (TABLET) Oral Every 1 Day FriDec 16 01:00:00 ED2018Jan 01:00:00 EDT 2018 Dilantin Extended 100 mg capsule 1 tab (CAPSULE) Oral 3 Times Daily for 2 days,m then bid for 1 day FriDec 16:00:00 ED2018Jan 01:00:00 ED2018 Dilantin Extended 100 mg capsule 100 mg CAPSULE Oral 3 Times Daily for 2 Days Seizures FriDec 11 09:00:00 ED2018Dec 13 08:59:00 EDT 2018 Dilantin Extended 100 mg capsule 100 mg CAPSULE Oral 2 Times Daily for 1 Day Seizures FriDec 13 09:00:00 EDT 2018Dec 14 01:00:00 EDT 2018 Dilantin Extended 100 mg capsule 100 mg CAPSULE Oral 3 Times Daily for 2 Days Seizures FriDec 14 09:00:00 EDT 2018Dec 14:00:00 EDT 2018 Dilantin Extended 100 mg capsule 100 mg CAPSULE Oral 2 Times Daily for 1 Day Seizures FriDec 16 09:00:00 EDT 2018Dec 14 01:00:00 EDT 2018 Dilantin Extended 100 mg capsule 100 mg CAPSULE Oral 3 Times Daily for 2 Days Seizures FriDec 17 09:00:00 EDT 2018Dec 14 01:00:00 EDT 2018 Dilantin Extended 100 mg capsule 100 mg CAPSULE Oral 2 Times Daily for 1 Day Seizures FriDec 19 09:00:00 EDT 2018Dec 14:00:00 EDT 2018 Dilantin Extended 100 mg capsule 100 mg CAPSULE Oral 3 Times Daily for 2 Days Seizures FriDec 20 09:00:00 EDT 2018Dec 14 01:00:00 EDT 2018 senna 8.6 mg tablet 1 tab TABLET Oral 1 Time Daily Constipation FriDec 11 07:00:00 EDT 2018Dec 14 01:00:00 EDT 2018 Miralax 17 gram/dose oral powder 1 dose POWDER (GRAM) Oral 1 Time Daily Constipation FriDec 11 07:00:00 EDT 2018Dec 14 01:00:00 EDT 2018 Vitamin D2 50,000 unit capsule 1 cap CAP ANASTACIO Oral 1 Time Weekly FriDec 09 01:00:00 EDT 2018Dec 14 01:00:00 EDT 2018 senna 8.6 mg tablet 1 tab TABLET Oral KS N 1 Time Daily FriDec 04 01:00:00 EDT 2018Dec 10 16:34:00 EDT 2018 Miralax 17 gram/dose oral powder 1 dose POWDER (GRAM) Oral PRN 1 Time Daily FriDec 03 01:00:00 EDT 2018Dec 10 16:34:00 EDT 2018 Milk of Magnesia 400 mg/5 mL oral suspension 30ml SUSPENSION, ORAL (FINAL DOSE FORM) Oral PRN 1 Time Daily constipation FriDec 02 01:00:00 EDT 2018Dec 14 01:00:00 EDT 2018 TUBErsol 5 tub. unit/0.1 mL intradermal injection solution 0.1 ml VIAL (ML) Intradermal 1 Time Weekly for 2 Weeks (PPD) 1st injection upon admission. Read between 48 and 72 hours and give 2nd injection 1 week after the 1st if result is negative. If positive result, proceed with chest x-ray to rule out active disease. FriDec 01 15:00:00 EDT 2018Dec 14 01:00:00 EDT 2018 TUBErsol 5 tub. unit/0.1 mL intradermal injection solution Read Results VIAL (ML) Other 1 Time Weekly for 2 Weeks Read results between 48-72 hours after 1st and 2nd 1 week apart. If positive do chest x-ray to rule out active disease. FriDec 04 15:00:00 EDT 2018Dec 14 01:00:00 EDT 2018 losartan 50 mg-hydrochlorothiazide 12.5 mg tablet 1 tab TABLET Oral 1 Time Daily FriDec 01 01:00:00 EDT 2018Dec 14 01:00:00 EDT 2018 Dilantin Extended 100 mg capsule 100 mg CAPSULE Oral 2 Times Daily for 1 Day Seizures FriDec 01 09:00:00 EDT 2018Dec 02 08:59:00 EDT 2018 Dilantin Extended 100 mg capsule 100 mg CAPSULE Oral 3 Times Daily for 2 Days Seizures Wed Mar 13 09:00:00 EDT 2018 15 08:59:00 EDT 2018 Dilantin Extended 100 mg capsule 100 mg CAPSULE Oral 2 Times Daily for 1 Day Seizures FriDec 04 09:00:00 EDT 2018Dec 05 08:59:00 EDT 2018 Dilantin Extended 100 mg capsule 100 mg CAPSULE Oral 3 Times Daily for 2 Days Seizures FriDec 05 09:00:00 EDT 2018Dec 07 08:59:00 EDT 2019 Dilantin Extended 100 mg capsule 100 mg CAPSULE Oral 2 Times Daily for 1 Day Seizures FriDec 07 09:00:00 EDT 2018Dec 08 08:59:00 EDT 2018 Dilantin Extended 100 mg capsule 100 mg CAPSULE Oral 3 Times Daily for 2 Days Seizures FriDec 08 09:00:00 EDT 2018 Sarahi Dec 10 08:59:00 EDT 2019 oxyCODONE 5 mg tablet 5 mg 1-2 tabs TABL ET Oral PRN Every 4 Hours Sat Nov 28 17:00:00 EST 2018Dec 14 01:00:00 EDT 2019 acetaminophen 325 mg tablet 650 mg TABLE T Oral PRN Every 6 Hours Sat Nov 28 17:00:00 EST 2018Nov 30 16:39:00 EDT 2019 aspirin 325 mg tablet,delaye d release 325 TABLET, DELAYED RELEASE (ENTERIC COATED) Oral 2 Times Daily Sat Nov 28 17:00:00 EST 2018Dec 14 01:00:00 EDT 2018 cholecalciferol (vitamin D3) 3,000 unit tablet 3000 UNITS TABLET Oral 1 Time Daily Sat Nov 28 17:00:00 EST 2018Nov 30 16:40:00 EDT 2019 cyanocobalamin (vit B-12) 1,000 mcg tablet 1000 mcg TABLET Oral 3 Times Weekly Sat Nov 28 17:00:00 EST 2018Dec 14 01:00:00 EDT 2019 docusate sodium 100 mg capsule 100 mg CA PSULE Oral 1 Time Daily Sat Nov 28 17:00:00 EST 2018Nov 30 16:43:00 EDT 2019 levothyroxine 88 mcg tablet 88 mcg TABLE T Oral 1 Time Daily Sat Nov 28 17:00:00 EST 2018Dec 14 01:00:00 EDT 2019 multivitamin capsule 1 CAPSULE Oral 1 Ti me Daily Sat Nov 28 17:00:00 EST 2018Nov 30 16:45:00 EDT 2019 valsartan 80 mg-hydrochlorothiazide 12.5 mg tablet 80-12.5 mg TABLET Oral 1 Time Daily FriNov 28 17:00:00 EST 2018Dec 01 03:15:00 EDT 2018 PHENobarbital 30 mg tablet 3 0 mg 30 mg TABLET Oral 3 Times Daily FriNov 28 17:00:00 EST 2018Dec 02 14:28:00 EDT 2019 Dilantin Extended 100 mg capsule 100 mg CAPSULE Oral 2 Times Daily for 1 Day FriNov 28 17:00:00 EST 2018Nov 29 01:25:00 EST 2018 Dilantin Extended 100 mg capsule 100 mg CAPSULE Oral 3 Times Daily for 2 Days Seizures FriNov 29 09:00:00 EDT 2018Dec 01 08:59:00 EDT 2018 Dilantin Extended 100 mg capsule 100 mg CAPSULE Oral 2 Times Daily for 1 Day Seizures FriDec 01 09:05:00 EDT 2018Dec 01 10:29:00 EDT 2018 Dilantin Extended 100 mg capsule 100 mg CAPSULE Oral 3 Times Daily for 2 Days Seizures FriDec 02 09:05:00 EDT 2018Dec 01 20:29:00 EDT 2018 Dilantin Extended 100 mg capsule 100 mg CAPSULE Oral 2 Times Daily for 1 Day Seizures FriDec 04 09:05:00 EDT 2018Dec 01 20:31:00 EDT 2018 acetaminophen 325 mg tablet 650 mg TABLE T Oral PRN Every 6 Hours DX: pain / fever FriNov 28 07:30:00 EST 2018Dec 14 01:00:00 EDT 2018 cholecalciferol (vitamin D3) 2,000 unit tablet 2000 unit TABLET Oral 1 Time Daily Supplement FriNov 28 09:00:00 2018Dec 08 13:02:00 EDT 2018 docusate sodium 100 mg capsule 300 mg CA PSULE Oral 1 Time Daily DX: constipation FriNov 28 09:00:00 EST 2018Dec 03 17:38:00 EDT 2018 multivitamin tablet 1 tablet TABLET Oral 1 Time Daily Supplement FriNov 28 09:00:00 2018Dec 14 01:00:00 EDT 2018 PHENobarbital 30 mg tablet 30 mg TABLET Oral 3 Times Daily FriDec 02 14:00:00 EDT 2018Dec 14 01:00:00 EDT 2018 Problems Active Concerns * Aftercare following joint replacement surgery* Code: * Start Date: FriNov 28 00:00:00 EST 2018 * End Date: * Text: * Presence of right artificial shoulder joint* Code: * Start Date: FriNov 28 00:00:00 2018 * End Date: * Text: * Essential (primary) hypertension* Code: * Start Date: FriNov 28:00:00 2018 * End Date: * Text: * Hypothyroidism, unspecified* Code: * Start Date: FriNov 28 00:00:00 2018 * End Date: * Text: * Anemia, unspecified* Code: * Start Date: FriNov 28:00:00 2018 * End Date: * Text: * Deficiency of other specified B group vitamins* Code: * Start Date: FriNov 28 00:00:00 2018 * End Date: * Text: * Vitamin D deficiency, unspecified* Code: * Start Date: FriNov 28 00:00:00 2018 * End Date: * Text: * Drug induced constipation* Code: * Start Date: FriNov 28 00:00:00 2018 * End Date: * Text: * Adverse effect of other opioids, subsequent encounter* Code: * Start Date: FriNov 28 00:00:00 2018 * End Date: * Text: * 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* Code: * Start Date: FriNov 28 00:00:00 2018 * End Date: * Text: * Cerebral palsy, unspecified* Code: * Start Date: FriMar 22 00:00:00 EDT 2019 * End Date: * Text: * Epilepsy, unspecified, not intractable, without status epilepticus* Code: * Start Date: FriMar 22 00:00:00 EDT 2019 * End Date: * Text: * Unspecified osteoarthritis, unspecified site* Code: * Start Date: FriMar 22 00:00:00 EDT 2019 * End Date: * Text: * Hypotension, unspecified* Code: * Start Date: FriMar 22 00:00:00 EDT 2019 * End Date: * Text: * Cardiac arrhythmia, unspecified* Code: * Start Date: FriMar 22 00:00:00 EDT 2019 * End Date: * Text: * Presence of left artificial hip joint* Code: * Start Date: FriNov 07 00:00:00 EST 2023 * End Date: * Text: * COVID-19* Code: * Start Date: FriNov 07 00:00:00 2023 * End Date: * Text: * Parkinson's disease without dyskinesia, without mention of fluctuations* Code: * Start Date: FriNov 07 00:00:00 EST 2023 * End Date: * Text: * Paroxysmal atrial fibrillation* Code: * Start Date: FriNov 07 00:00:00 EST 2023 * End Date: * Text: * Hemiplegia and hemiparesis following cerebral infarction affecting right dominant side* Code: * Start Date: FriNov 07 00:00:00 EST 2023 * End Date: * Text: Reason for Referral Past Medical History Resolved Concerns * Problem Primary osteoarthritis, right shoulder* Code: * Start Date: FriNov 28 00:00:00 EST 2018 * End Date: FriNov 10 00:00:00 EST 2023 * Problem Nondisplaced transverse fracture of shaft of right fibula, subsequent encounter for closed fracture with routine healing* Code: * Start Date: FriMar 22 00:00:00 EDT 2019 * End Date: FriNov 10 00:00:00 EST 2023 * Problem Fall on same level, unspecified, subsequent encounter* Code: * Start Date: FriMar 22 00:00:00 EDT 2019 * End Date: FriNov 10 00:00:00 EST 2023 * Problem Unspecified atrial fibrillation* Code: * Start Date: FriNov 07 00:00:00 EST 2023 * End Date: FriNov 10 00:00:00 EST 2023
--- OUTSIDE RECORDS SUMMARY | 2024-12-27 17:00 | XMS_ITS | Encounter Summary ---
Author Organization [facility] Healthcare Address [address] [place] [address] Care Team Providers Care Industrial Aerial Installer Name Role Phone Bobo Lim Unavailable [phone] Andrew Vegas MD Unavailable [phone] Theodore Farrra MD Primary Care Provider [phone] Encounter Details Date Type Department Care Team (Late st Contact Info) Description 11/15/2024 Results Follow-Up [facility] Medical [facility] Cardiology [address] [facility] [address] [place] [id number] Jesse Couch MD [address] [place] [address] [address] [place] [address] Social History Tobacco Use Types Packs/Day Years Used Date Smoking Tobacco: Never Smokeless Tobacco: Never Alcohol Use Standard Drinks/Week Comments No 0 (1 standard drink = 0.6 oz pur e alcohol) [facility] Utilities Answer Date Recorded In the past 12 months has [employer], gas, oil, or water company threatened to [...] often do you attend chur ch or jew services? 1 to 4 times per year 11/04/2023 Do you belong to any clubs o r organizations such as religious groups, unions, fraternal or athletic groups, or [...] place to sleep or slept in a prison (including now)? No 11/04/2023 Personal Safety Answer Date Recorded Have you ever been in or are you currently in a harmful physical or emotional relationship or is someone making you feel afraid or unsafe? 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 Gender Identity Female 03/13/2020 12:13 PM CDT Sexual Orientation Not on file documented as of this encounter Plan of Treatment Not on file documented as of this encounter Visit Diagnoses Not on filedocumented in this encounter Care Teams Industrial Aerial Installer Relationship Specialty Start Date End Date Theodore Farrar MD [address] [place] [address] PCP - General Family Practice 11/06/24 Bobo Lim PA [address] [facility] [address] [facility] [address] [place] [address] Physician Senior Property Accountant 12/02/23 Andrew Vegas MD [address] [place] [address] [address] [place] [address] Surgeon Orthopedic Surgery 11/06/23 documented as of this encounter
--- OUTSIDE RECORDS SUMMARY | 2024-12-27 17:00 | XMS_ITS | Clinical Summary ---
Author Organization [facility] [address] [facility] [address] [place] [address] Care Team Providers Care Shoe Shanker Name Role Phone Bobo Lim Unavailable [phone] Andrew Vegas MD Unavailable Theodore Farrar MD Primary Care Provider [phone] Allergies No known active allergies Medications PHENobarbital (LUMINAL) 30 mg tablet Take 1 tablet (30 mg total) by mouth 3 (three) times a day 8 Active DILANTIN EXTENDED 100 mg ER capsule Take 1 capsule (100 mg total) by mouth 2 (two) times a day 8 Active multivitamin capsule Take 1 capsule by mouth every morning Active docusate sodium (COLACE) 50 mg capsule Take 1 capsule (50 mg total) by mouth 2 (two) times a day Active acetaminophen (TYLENOL) 500 mg tablet Take 1 tablet (500 mg total) by mouth every 6 (six) hours as needed 4 Active loperamide (IMODIUM) 2 mg capsule Take 1 capsule (2 mg total) by mouth as needed 4 Active levothyroxine (SYNTHROID) 75 mcg tablet Take 1 tablet (75 mcg total) 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 before breakfast 4 Active sotaloL (BETAPACE) 80 mg tablet Take 0.5 tablets (40 mg total) by mouth 2 (two) times a day 30 tablet 11 4 06/07/20 25 Active carbidopa-levo dopa (SINEMET) 25-100 mg per tablet Take 1 tablet by mouth 4 (four) times a day 360 tablet 1 4 Active Additional Information Patient taking differently:1 tablet oral3 times daily, Reported on 12/09/2024 cholecalcifero l (Vitamin D3) 1,000 unit capsule Take 1 capsule (1,000 Units total) by mouth 2 (two) times a day Active calcium carbonate-becki min D3 (CALTRATE 600 + D) 1500 mg (600 mg elemental) -400 units per tablet Take 1 tablet by mouth 2 (two) times a day 5 Active cyanocobalamin (Vitamin B-12) 1,000 mcg sublingual tablet 3 (three) times a week MWF 5 Active aspirin 81 mg chewable tabletIndicati ons:coronary artery disease Take 1 tablet (81 mg total) by mouth daily 30 tablet 11 5 12/12/19 26 Active clopidogreL (PLAVIX) 75 mg tabletIndicati ons:coronary artery disease Take 1 tablet (75 mg total) by mouth daily 30 tablet 5 12/12/19 26 Active cyanocobalamin (Vitamin B-12) 1,000 mcg tablet Take 1 tablet (1,000 mcg total) by mouth daily Take Friday, Friday, and Friday12/01/19 25 Discontin ued(Dupli louis order) calcium carbonate (CALCIUM 500 ORAL) Take 600 mg by mouth daily 12/01/19 25 Discontin ued(Dupli louis order) HYDROcodone-ac etaminophen (NORCO) 5-325 mg per tabletIndicati ons:Pain Take 1-2 tablets by mouth every 4 (four) hours as needed for pain 40 tablet 4 12/01/19 25 Discontin ued(Thera py completed ) Eliquis 5 mg tablet Take 1 tablet (5 mg total) by mouth 2 (two) times a day 4 12/12/19 25 Discontin ued(Stop Taking at Discharge ) fluticasone propionate (FLONASE) 50 mcg/actuation nasal spray 4 12/01/19 25 Discontin ued(Dupli louis order) phenytoin sodium extended (DILANTIN ORAL) Take by mouth 12/12/19 25 Discontin ued(Stop Taking at Discharge ) Active Problems Problem Noted Date Diagnosed Date 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 12/09/2024 Headache due to injury of head and neck 09/06/20 24 Falls frequently 09/06/2024 History of pulmonary embolus (PE) 01/01/2024 Chronic anticoagulation 01/01/2024 Aftercare following left hip joint replacement s urgery 01/01/2024 COVID-19 11/06/2023 Presence of left artificial hip joint 11/03/2023 Preop cardiovascular exam 10/09/2023 Parkinson's disease 06/08/2020 Assessment & Plan (03/01/2021 3:18 PM CDT): Patient has had symptomatic improvement following increase in Sinemet dosing to 25/100 q.i.d.. She has no tolerability issues with medication. I will maintain her Sinemet as present schedule dosing and see her back in 1 year. Assessment & Plan (09/07/2020 3:18 PM DIRECTOR OF GLOBAL MARKETING): Patient has sided interval improvement with initiation [...] PCP. Assessment & Plan (09/07/2020 3:18 PM DIRECTOR OF GLOBAL MARKETING): Patient's seizures remain controlled on Dilantin treatment. [...] noted. 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 Assessment & Plan (06/08/2020 11:30 AM CDT): Patient's history of cerebral palsy with right spastic hemiparesis as a sequelae. Supportive care is indicated. PAF (paroxysmal atrial fibrillation) 04/03/2020 Bilateral lower extremity edema 03/14/2020 Premature atrial contractions 03/14/2020 FERMIN (dyspnea on exertion) 03/14/2020 Palpitations 03/14/2020 Vitamin D deficiency, unspecified 11/28/2018 Hypothyroidism, unspecified 11/28/2018 Hypertension 11/24/2018 Hypothyroidism 11/24/2018 History of seizures 11/24/2018 Shoulder arthritis 10/21/2018 Overview (10/21/2018): Added automatically from request for surgery [id number] Hemiplegia and hemiparesis f ollowing cerebral infarction affecting right dominant side 1940 Resolved Problems Problem Noted Date Diagnosed Date Resolved Date Primary osteoarthritis of left hip 10/24/2023 01/01/2024 Encounters Date Type Department Care Team Description 12/16/2024 [facility] Post Discharge Follow up phone call [address] [address] Gaona Yolanda Ashlyndebby 12/15/2024 Orders Only [facility] Cardiac Catheterization Lab [address] [place] [id number] Jesse Couch MD PAF (paroxysmal atrial fibrillation) (HCC) (Primary Dx); 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 12/13/2024 Telephone [facility] Cardiology [address] [place] [address] [place] [phone] Jesse Couch MD 12/09/2024 8:17 AM CDT Anesthesia Event [facility] Cardiac Catheterization Lab [address] [place] [address] Jerrica Snyder DO Barnhart, Lynlee Jo, NP 12/09/2024 8:00 AM CDT - 12/09/2024 10:30 AM CDT Surgery [facility] Cardiac Catheterization Lab [address] [place] [phone] Jesse Couch MD PERC MALINA CLOSE W/IMPLANT [id number] 12/09/2024 7:52 AM CDT - 12/09/2024 11:59 PM CDT Hospital Encounter [facility] Cardiac Catheterization Lab [address] [place] [address] Discharge Disposition: Discharge to home or self care 12/09/2024 6:04 AM CDT - 12/11/2024 1:59 PM CDT Hospital Encounter [address] [phone] Jesse Couch MD PAF (paroxysmal atrial fibrillation) (HCC) Discharge Disposition: Discharge to home or self care 11/30/2024 9:45 AM CDT Pre-Admission Testing [facility] Pre Anesthesia Testing [address] [place], [place] [id number] Encounter for preadmission testing (Primary Dx); Other specified coagulation defects 11/25/2024 Telephone [facility] Cardiology [address] [place] [phone] Jesse Couch MD Authorization/Certifi cation 11/23/2024 Cardiology Conference [facility] Non-invasive Cardiac Diagnostic Testing [id number] [place] [phone] Ramos Negro RN 11/22/2024 Orders Only [facility] Non-invasive Cardiac Diagnostic Testing [address] [place] [address] Jesse Couch MD PAF (paroxysmal atrial fibrillation) (HCC) (Primary Dx) 11/22/2024 Telephone [facility] Cardiology [facility] 8th [place] [address] [place] [address] Marianela Nicholas 11/19/2024 Telephone [facility] Cardiology [address] [place] [address] [place] [phone] Deion Marin MD Atrial Fibrillation 11/15/2024 Results Follow-Up [facility] Cardiology [address] [place] [address] [place] [phone] Jesse Couch MD 11/12/2024 10:22 AM DIRECTOR OF GLOBAL MARKETING - 11/12/2024 11:59 PM DIRECTOR OF GLOBAL MARKETING Hospital Encounter [facility] Imaging and Radiology [address] [place] [phone] PAF (paroxysmal atrial fibrillation) (HCC); Frequent falls; Unsteady gait Discharge Disposition: Discharge to home or self care 11/05/2024 11:00 AM DIRECTOR OF GLOBAL MARKETING Office Visit [facility] Cardiology [address] [place] [address] [place] [phone] Jesse Couch MD PAF (paroxysmal atrial fibrillation) (HCC) (Primary Dx); Chronic anticoagulation; Parkinson's disease, unspecified whether dyskinesia present, unspecified whether manifestations fluctuate (HCC); Primary hypertension; Frequent falls; Unsteady gait 10/26/2024 Telephone [facility] Cardiology [facility] [address] [place] [phone] Tatiana Clay NP 10/25/2024 10:00 AM DIRECTOR OF GLOBAL MARKETING Office Visit [facility] Cardiology [facility] [address] [place] [phone] Danna, Tatiana Ashlie, LOAN TELLER PAF (paroxysmal atrial fibrillation) (HCC) (Primary Dx); Encounter for monitoring sotalol therapy; Chronic anticoagulation; Hospital discharge follow-up 10/11/2024 Telephone [facility] Cardiology [address] [place] [phone] Deion Marin MD Hospitalization for a-fib; Atrial Fibrillation from Last 3 Months Immunizations Immunization Administration Dates Next Due ZOSTER Recombinant 02/11/2022 Surgical History Surgery Date Site/Laterality Comments HYSTERECTOMY APPENDECTOMY BREAST SURGERY Left Right TONSILLECTOMY JOINT REPLACEMENT Reverse total shoulder right DILATION AND CURETTAGE OF UTERUS twice TUBAL LIGATION CATARACT EXTRACTION, BILATERAL TOTAL HIP ARTHROPLASTY Left IMPLANTABLE CARDIAC DEVICE 12/09/2024 N/A Procedure: PERC MALINA CLOSE W/IMPLANT [id number]; Surgeon: Jesse Couch MD; Location: [employer] [facility]; Service: Cardiovascular; Laterality: N/A; Medical devices from this surgery are in the Medical Devices section. Medical History Medical History Date Comments History of seizure Hypothyroid History of UTI Hypertension Osteoarthritis Scoliosis Falls frequently per patient History of petit-mal seizures Cataracts, bilateral Arthritis Parkinson's disease (HCC) Osteoporosis Delayed emergence from general anesthesia Arrhythmia a fib Pneumonia Seizures (HCC) petit mal siezur es Stroke (HCC) at per patient partially paralyzed right side Premature atrial contraction FERMIN (dyspnea on exertion) Palpitations PAF (paroxysmal atrial fibrillation) (HCC) History of pulmonary embolus (PE) Vitamin D deficiency Cerebral palsy (HCC) Hemiplegia and hemiparesis f ollowing cerebral infarction affecting right dominant side (HCC) at per patient part ially paralyzed right side Wears glasses Uses walking aid when standing alone rollator GERD (gastroesophageal reflux disease) Family History Medical History Relation Name Comments [...] drink = 0.6 oz pur e alcohol) [facility] Utilities Answer Date Recorded In the past [...] often do you attend chur ch or mandaen services? 1 to 4 times per year 11/04/2023 Do you belong to any clubs o r organizations such as congregation groups, unions, fraternal or athletic groups, or [...] place to sleep or slept in a alf (including now)? No 11/04/2023 Personal Safety Answer Date Recorded Have you ever been in or are you currently in a harmful physical or emotional relationship or is someone making you feel afraid or unsafe? Denies 12/09/2024 Comments No Sex and Gender Information Value Date Recorded Sex Assigned at Not on file Legal Sex Female 10:51 AM DIRECTOR OF GLOBAL MARKETING Gender Identity Female 03/13/2020 12:13 PM CDT Sexual Orientation Not on file Obstetrics History Last Filed Vital Signs Vital Sign Reading Time Taken Comments Blood Pressure 141/59 12/11/2024 11:50 AM CDT Pulse 69 12/11/2024 11:50 AM CDT Temperature 37.3 C (99.1 F) 12/11/2024 11:50 AM CDT Respiratory Rate 17 12/11/2024 11:50 AM CDT Oxygen Saturation 99% 12/11/2024 11:50 AM CDT Inhaled Oxygen Concentration - - Weight 63.7 kg (140 lb 6.9 oz) 12/11/2024 5:50 A M CDT Height 162.6 cm (5' 4.02 ) 12/09/2024 2:00 PM CD T Body Mass Index 24.09 12/09/2024 2:00 PM CDT Plan of Treatment Health Maintenance Due Date Last Done Comments Osteoporosis Screening-Bone Density Scan 1940 DTaP/Tdap/Td Vaccine (1 - Tdap) 12/15/1951 Hepatitis B Screening 1958 Pneumococcal vaccine 65+ (1 of 2 - PCV) 12/15/1959 Well Visit 65+ 2005 Zoster Vaccine (2 of 2) 04/08/2022 02/11/2022 Covid-19 Vaccine (4 - season) 2024 08/02/2021, 11/22/2020, 11/01/2020 Depression Screening 10/24/2024 10/24/2023 Influenza Vaccine (Season Ended) 2025 Fall Risk Assessment 12/11/2025 12/11/2024, 10/24/2023, 07/21/2020 Medical Devices Implanted Type Area Watch Inspector Final Movement Device Identifier Shelf Expiration Date Model / Serial / Lot [employer] [id number] Delta Xtend 27mm Cementless Shoulder Standard Component Glenoid Latex Free - [id number] Implanted:Qty: 1 on 11/25/2018 by Jesse Casas MD at [facility] [employer] [id number] / / [employer] [id number] Delta Xtend 4.5mm 42mm Lock Shoulder Glenoid Screw Bone Metaglene - [id number] Implanted:Qty: 1 on 11/25/2018 by Jesse Casas MD at [facility] [employer] [id number] / / [employer] [id number] Delta Xtend 38mm Glenosphere Shoulder Eccentric Component Glenoid Latex Free - [id number] Implanted:Qty: 1 on 11/25/2018 by Jesse Casas MD at [facility] [employer] [id number] / / [employer] [id number] Delta Xtend 4.5mm 36mm Lock Shoulder Glenoid Screw Bone Metaglene - [id number] Implanted:Qty: 1 on 11/25/2018 by Jesse Casas MD at [facility] [employer] [id number] / / [employer] [id number] Delta Xtend Cementless Modular Shoulder Right Epiphysis 155d 1 Latex Free - [id number] Implanted:Qty: 1 on 11/25/2018 by Jesse Casas MD at [facility] [employer] [id number] / / [employer] [id number] Global Unite 8mm 107mm Modular Shoulder Standard Stem Humeral - [id number] Implanted:Qty: 1 on 11/25/2018 by Jesse Casas MD at [facility] [employer] [id number] / / [employer] [id number] Delta Xtend 38mm Shoulder +6mm Standard Cup Humeral Polyethylene Latex Free - [id number] Implanted:Qty: 1 on 11/25/2018 by Jesse Casas MD at [facility] [employer] [id number] / / [employer] Luquillo 56mm 36mm Hip Neutral Liner Acetabular Altrx Sterile Latex Free [id number] - [id number] Implanted:Qty: 1 on 11/03/2023 by Andrew Vegas MD at [facility] Left: Hip [employer] 07/22/2028 [id number] / / [id number] [employer] Luquillo 6.5mm 35mm Acetabular Cancellous Screw Bone Sterile 1217-35-500 - [id number] Implanted:Qty: 1 on 11/03/2023 by Andrew Vegas MD at [facility] Left: Hip [employer] 07/22/2033 1217-35-500 / / [id number] [employer] Actis Collar Hip 7 High Offset Stem Femoral [id number] - [id number] Implanted:Qty: 1 on 11/03/2023 by Andrew Vegas MD at [facility] Left: Hip [employer] 12/20/2032 [id number] / / [id number] [employer] Articul/Jamel 36mm Cementless Hip +1.5mm 12/14 Taper Head Femoral Latex Free [id number] - [id number] Implanted:Qty: 1 on 11/03/2023 by Andrew Vegas MD at [facility] Left: Hip [employer] 08/21/2028 [id number] / / [id number] [employer] Luquillo 56mm Sector Hip Shell Acetabular Gription Sterile Latex Free [id number] - [id number] Implanted:Qty: 1 on 11/03/2023 by Andrew Vegas MD at [facility] Left: Hip [employer] 03/21/2033 [id number] / / [id number] [employer] System Closure Repair Femoral Artery Suture Mediated Perclose Prostyle 22009-42 - [id number] Implanted:Qty: 1 on 12/09/2024 by Jesse Couch MD at [facility] [employer] 10/22/2026 [id number] / / [id number] [employer] System Closure Repair Femoral Artery Suture Mediated Perclose Prostyle 00687-03 - [id number] Implanted:Qty: 1 on 12/09/2024 by Jesse Couch MD at [facility] [employer] 09/21/2026 [id number] / / [id number] [employer] Occluder Cvasc Malina Flexible Braided Amplatzer Amulet 25mm Nitinol 1-Dae1-818-025 - [id number] Implanted:Qty: 1 on 12/09/2024 by Jesse Couch MD at [facility] [employer] 06/21/2029 9-ACP2-01 0-0 25 / / [id number] Explanted Type Area Watch Inspector Final Movement Device Identifier Shelf Expiration Date Model / Serial / Lot [employer] [id number] Ramon 3/32in 9in 2 Trocar Pin Fixation Nonsterile - [id number] Explanted:Qty: 1 on 11/25/2018 at [facility] [employer] [id number] / / Procedures Procedure Name Priority Date/Time Associated Diagnosis Comments ECG 12-LEAD Routine 12/10/2024 3:25 PM CDT TRANSTHORACIC ECHO (TTE) LIMITED/FOLLOW UP W LTD DOPPLER/CF WO CONTRAST Routine 12/10/2024 11:37 AM CDT ECG 12-LEAD Routine 12/10/2024 7:17 AM CDT EGFR Routine 12/10/2024 3:34 AM CDT DIFFERENTIAL AUTO Routine 12/10/2024 3:3 4 AM CDT CBC WITH AUTO DIFFERENTIAL Routine 12/10/2024 3:34 AM CDT MAGNESIUM Routine 12/10/2024 3:34 AM CDT BASIC METABOLIC PANEL Routine 12/10/2024 3:34 AM CDT ECG 12-LEAD Routine 12/10/2024 2:19 AM CDT POCT GLUCOSE DEVICE Routine 12/09/2024 5 :49 PM CDT XR CHEST 1 VIEW IP Routine 12/09/2024 3:09 PM CDT APTT Routine 12/09/2024 3:09 PM CDT PROTIME-INR Routine 12/09/2024 3:09 PM CDT PERC MALINA CLOSURE W/IMPLANT (WATCHMAN) [id number] Routine 12/09/2024 10:24 AM CDT PAF (paroxysmal atrial fibrillation) ([facility]) POCT ACTIVATED CLOTTING TIME, HIGH RANGE Routine 12/09/2024 10:12 AM CDT POCT ACTIVATED CLOTTING TIME, HIGH RANGE Routine 12/09/2024 9:24 AM CDT POCT ACTIVATED CLOTTING TIME, HIGH RANGE Routine 12/09/2024 9:10 AM CDT AR AN ELECTIVE ENDOTRACHEAL AIRWAY Routine 12/09/2024 8:31 AM CDT B CHECK SAMPLE STAT 12/09/2024 8:02 AM CDT ECG 12-LEAD Routine 11/30/2024 10:42 AM CDT Encounter for preadmission testing EGFR Routine 11/30/2024 10:21 AM CDT Encounter for preadmission testing DIFFERENTIAL AUTO Routine 11/30/2024 10: 21 AM CDT Encounter for preadmission testing TYPE AND SCREEN Routine 11/30/2024 10:21 AM CDT Encounter for preadmission testing PROTIME-INR Routine 11/30/2024 10:21 AM CDT Encounter for preadmission testing Other specified coagulation defects COMPREHENSIVE METABOLIC PANEL Routine 11/30/2024 10:21 AM CDT Encounter for preadmission testing CBC WITH AUTO DIFFERENTIAL Routine 11/30/2024 10:21 AM CDT Encounter for preadmission testing APTT Routine 11/30/2024 10:21 AM CDT Encounter for preadmission testing Other specified coagulation defects CT HEART MORPHOLOGY W CONTRAST Schedule Routine, Read Routine (OP Routine) 11/12/2024 11:47 AM DIRECTOR OF GLOBAL MARKETING PAF (paroxysmal atrial fibrillation) (HCC) Frequent falls Unsteady gait from Last 3 Months Results * TRANSTHORACIC ECHO (TTE) LIMITED/FOLLOW UP W LTD DOPPLER/CF WO CONTRAST (12/10/2024 11:37 AM CDT) Anatomical Region Laterality Modality Ultrasound 12/10/2024 11:1 9 AM CDT Narrative 12/10/2024 12:18 [place] [address] Limited Echocardiogram Report Patient Name: MAAME BRISCOE : 1940 Study Date: 12/10/2024 11:19:34 AM Gender: F Tech: ALEX Location: [id number] Ref Provider: ANTONELLA HARPER Height(Cm): 163 BSA: 1.67 Weight(Kg): 61.7 Heart Rate: 80 Quality: Good Order Provider: ANTONELLA HARPER PROCEDURES: Echocardiographic Report: Limited transthoracic echocardiogram with 2D and color Doppler. INDICATIONS: S/P LAAO. MEASUREMENTS: 2D/MM Value Range Doppler Value Range EF Mod BP 60 % [ 54 - 74 ] MAGDY 0.00 cm2 2D/MM Value Range Doppler Value Range - FINDINGS: Atrial Septum: Normal atrial septum. Aorta: Normal aortic root. Sinus of Valsalva is normal. Sinotubular junction is normal. Ascending aorta is normal. Aortic arch is normal. Descending aorta is normal. Left Ventricle: Mild concentric left ventricular hypertrophy. Ejection fraction is measured at 60 %. Left Atrium: There is mild enlargement of left atrium. Right Ventricle: Normal right ventricular size. Normal right ventricular systolic function. Right Atrium: The right atrium is normal in size. Aortic Valve: Normal structure of the aortic valve. Mitral Valve: Mild mitral annular calcification. Mild mitral valve regurgitation. Pulmonic Valve: Normal structure of the pulmonic valve. No pulmonic stenosis. Tricuspid Valve: Normal structure of the tricuspid valve. Normal right ventricular systolic pressure. Pericardium: Normal pericardium with no significant pericardial effusion. CONCLUSIONS: Mild concentric left ventricular hypertrophy. Ejection fraction is measured at 60 %. There is mild enlargement of left atrium. Mild mitral annular calcification. Mild mitral valve regurgitation. Amulet device seen. Electronically Signed By: Toan Kaur MD 12/10/2024 12:17:59 PM CDT Procedure Note Vlad Kaur MD - 12/10/2024 [place] [address] Limited Echocardiogram Report Patient Name: MAAME BRISCOE : 1940 Study Date: 12/10/2024 11:19:34 AM Gender: F Tech: ALEX Location: [id number] Ref Provider: ANTONELLA HARPER Height(Cm): 163 BSA: 1.67 Weight(Kg): 61.7 Heart Rate: 80 Quality: Good Order Provider: ANTONELLA HARPER PROCEDURES: Echocardiographic Report: Limited transthoracic echocardiogram with 2D and color Doppler. INDICATIONS: S/P LAAO. MEASUREMENTS: 2D/MM Value Range Doppler Value Range EF Mod BP 60 % [ 54 - 74 ] MAGDY 0.00 cm2 2D/MM Value Range Doppler Value Range - FINDINGS: Atrial Septum: Normal atrial septum. Aorta: Normal aortic root. Sinus of Valsalva is normal. Sinotubular junction isnormal. Ascending aorta is normal. Aortic arch is normal. Descending aorta isnormal. Left Ventricle: Mild concentric left ventricular hypertrophy. Ejection fraction ismeasured at 60 %. Left Atrium: There is mild enlargement of left atrium. Right Ventricle: Normal right ventricular size. Normal right ventricular systolicfunction. Right Atrium: The right atrium is normal in size. Aortic Valve: Normal structure of the aortic valve. Mitral Valve: Mild mitral annular calcification. Mild mitral valve regurgitation. Pulmonic Valve: Normal structure of the pulmonic valve. No pulmonic stenosis. Tricuspid Valve: Normal structure of the tricuspid valve. Normal right ventricular systolicpressure. Pericardium: Normal pericardium with no significant pericardial effusion. CONCLUSIONS: Mild concentric left ventricular hypertrophy. Ejection fraction ismeasured at 60 %. There is mild enlargement of left atrium. Mild mitral annular calcification. Mild mitral valve regurgitation. Amulet device seen. Electronically Signed By: Toan Kaur MD 12/10/2024 12:17:59 PM CDT Antonella Harper NP CV ECHO PROCEDURES Final Result * ECG 12 lead (12/10/2024 7:17 AM CDT) 12/10/2024 7:17 AM CDT Narrative [facility] - 12/10/2024 10:20 AM CDT Vent Rate: 110 bpm RR Interval: 543 msec AR Interval: 0 msec QRS Duration: 77 msec QT Interval: 345 msec QTC Interval: 410 msec P-R-T Grand Chain: 0 - -8 - 13 degrees IMPRESSION: ATRIAL FLUTTER NONSPECIFIC ST \T\ T-WAVE ABNORMALITY ABNORMAL RHYTHM ECG INTERPRETATION BASED ON A DEFAULT AGE OF 40 YEARS Electronically Signed By: Toan Kaur MD us Jesse Couch MD ECG ORDERABLES Final Result [facility] * eGFR (12/10/2024 3:34 AM CDT) eGFR 88 >=60 mL/min/1. 73 m2 Comment: Interpretive Data Reference Interval Normal >/= 90 mL/min/1.73m2 Mildly decreased* 60 - 89 mL/min/1.73m2 Mildly to moderately decreased 45 - 59 mL/min/1.73m2 Moderately to severely decreased 30 - 44 mL/min/1.73m2 Severely decreased 15 - 29 mL/min/1.73m2 Kidney Failure < 15 mL/min/1.73m2 *Relative to young adult level Estimated glomerular filtration rate is determined by the 2020 CKD-EPI equation recommended by the [employer] (A Unifying Approach to GFR Estimation: Recommendations of the NKF-ASK Task Force on Reassessing the Inclusion of Race in Diagnosing Kidney Disease, JASN 2020). The CKD-EPI equation should not be used for patients with unstable renal function and has not been validated in children and those over 70. Current interpretive data was last reviewed 2021. Blood 12/10/2024 3:34 AM CDT 12/10/2024 4:48 AM CDT Jesse Couch MD LAB BLOOD ORDERABLES Final Resul t Performing Organization Address City/[facility]/ZIP Co de Phone Number NISHANT DOMINGUEZ [address] Department [place] [address] * (ABNORMAL) Differential, auto (12/10/2024 3:34 AM CDT) Neutrophil abs 4.2 1.5 - 6.5 K/cumm Imm gran abs 0.0 0.0 - 0.1 K/cumm [facility] Lymphocyte abs 0.5(L) 0.8 - 3.3 K/cumm [facility] Monocyte abs 0.5 0.2 - 0.8 K/cumm [facility] Eosinophil abs 0.2 0.0 - 0.5 K/cumm [facility] Basophil abs 0.0 0.0 - 0.1 K/cumm [facility] Neutrophil pct 77.0 % [facility] Comment: Interpretive Data Percent cell count reference ranges are not reported, since discordance with absolute values may lead to misinterpretation of CBC data. Current Interpretive Data was last revised on 2017. Imm gran pct 0.6 % [facility] Comment: Interpretive Data Percent cell count reference ranges are not reported, since discordance with absolute values may lead to misinterpretation of CBC data. Current Interpretive Data was last revised on 2017. Lymphocyte pct 9.1 % [facility] Comment: Interpretive Data Percent cell count reference ranges are not reported, since discordance with absolute values may lead to misinterpretation of CBC data. Current Interpretive Data was last revised on 2017. Monocyte pct 8.4 % [facility] Comment: Interpretive Data Percent cell count reference ranges are not reported, since discordance with absolute values may lead to misinterpretation of CBC data. Current Interpretive Data was last revised on 2017. Eosinophil pct 4.3 % [facility] Comment: Interpretive Data Percent cell count reference ranges are not reported, since discordance with absolute values may lead to misinterpretation of CBC data. Current Interpretive Data was last revised on 2017. Basophil pct 0.6 % [facility] Comment: Interpretive Data Percent cell count reference ranges are not reported, since discordance with absolute values may lead to misinterpretation of CBC data. Current Interpretive Data was last revised on 2017. Blood 12/10/2024 3:34 AM CDT 12/10/2024 4:46 AM CDT us Jesse Couch MD LAB BLOOD ORDERABLES Final Resul t NISHANT [address] Department [place] [address] * (ABNORMAL) CBC with auto differential (12/10/2024 3:34 AM CDT) WBC 5.4 3.8 - 9.9 K/cumm Hgb 11.3(L) 11.9 - 15.5 g/dL [facility] Hct 33.3(L) 35.6 - 45.5 % [facility] Plt 154 150 - 400 K/cumm [facility] MPV 9.5 9.1 - 12.3 fL [facility] RBC 3.37(L) 3.90 - 5.20 M/cumm [facility] MCV 98.8(H) 81.3 - 96.4 fL [facility] MCH 33.5(H) 27.1 - 33.3 pg [facility] MCHC 33.9 32.3 - 35.7 g/dL [facility] RDW CV 13.2 11.1 - 14.9 % [facility] RDW SD 47.6 35.7 - 48.1 fL [facility] NRBC abs 0.00 0.00 - 0.01 K/cumm [facility] Blood 12/10/2024 3:34 AM CDT 12/10/2024 4:46 AM CDT Jesse Couch MD LAB BLOOD ORDERABLES Final Resul t Performing Organization Address [facility] Co de Phone Number NISHANT [address] [employer] [place], [place] [id number] * Magnesium (12/10/2024 3:34 AM CDT) Pathologist [facility] Magnesium 1.7 1.4 - 2.5 mg/dL Blood 12/10/2024 3:34 AM CDT 12/10/2024 4:48 AM CDT Jesse Couch MD LAB BLOOD ORDERABLES Final Resul t Performing Organization Address [facility] Co de Phone Number [facility] [address] Department of [employer] [place], [place] [id number] * (ABNORMAL) Basic metabolic panel (12/10/2024 3:34 AM CDT) Sodium 139 135 - 145 mmol/L Potassium, pl 3.7 3.3 - 4.9 mmol/L [facility] Chloride 104 97 - 110 mmol/L [facility] CO2 21(L) 22 - 32 mmol/L [facility] Anion gap 14 2 - 15 mmol/L [facility] BUN 14 6 - 25 mg/dL [facility] Creatinine 0.63 0.60 - 1.10 mg/dL [facility] Glucose 126 70 - 199 mg/dL [facility] Comment: Interpretive Data Fasting glucose >/= 126 mg/dl is diagnostic for diabetes. Fasting is defined as no caloric intake for at least 8 hours. Fasting glucose between 100 mg/dl to 125 mg/dl is diagnostic of prediabetes. In a patient with classic symptoms of hyperglycemia or hyperglycemic crisis, a random glucose >/= 200 mg/dl is diagnostic for diabetes. In the absence of unequivocal hyperglycemia, results should be confirmed by repeat testing. The classification and Diagnosis of Diabetes Diabetes Care 2021; 46: S19-S40. Current interpretive data was last revised 2022. Calcium 8.4(L) 8.5 - 10.3 mg/dL [facility] Blood 12/10/2024 3:34 AM CDT 12/10/2024 4:48 AM CDT Jesse Couch MD LAB BLOOD ORDERABLES Final Resul t Performing Organization Address City/[facility]/ZIP Co de Phone Number [facility] [address] Department [place] [address] * ECG 12 lead (12/10/2024 2:19 AM CDT) 12/10/2024 2:19 AM CDT Narrative [facility] [employer] - 12/10/2024 10:22 AM CDT Vent Rate: 134 bpm RR Interval: 445 msec AR Interval: 0 msec QRS Duration: 75 msec QT Interval: 301 msec QTC Interval: 380 msec P-R-T Grand Chain: 0 - -10 - 45 degrees IMPRESSION: ATRIAL FIBRILLATION WITH RAPID VENTRICULAR RESPONSE ST DEPRESSION, CONSIDER SUBENDOCARDIAL INJURY ABNORMAL ECG Electronically Signed By: Toan Kaur MD Jesse Couch MD ECG ORDERABLES Final Result Performing Organization Address City/[facility]/ZIP Co de Phone Number [facility] * POCT glucose (12/09/2024 5:49 PM CDT) Glucose, POC 89 70 - 199 mg/dL POC Performer [id number] NISHANT DOMINGUEZ Blood 12/09/2024 5:49 PM CDT 12/09/2024 5:49 PM CDT Jesse Couch MD LAB POCT ORDERABLES - DEVICE Fin al Result NISHANT DOMINGUEZ [address] Department [place] [address] * XR Chest 1 View (12/09/2024 3:09 PM CDT) Anatomical Region Laterality Modality Body, Chest N/A Computed Radiogr aphy 12/09/2024 3:27 PM CDT Impressions 12/09/2024 3:27 PM CDT Left atrial closure device in place. Electronically signed by: Mary Rhodes M.D. Narrative 12/09/2024 3:27 PM CDT EXAMINATION: XR CHEST 1 VIEW HISTORY: The patient is an 83-year-old female who presents with atrial fibrillation. TECHNIQUE: AP portable view of the chest. FINDINGS: There is a cardiac device noted in situ. Heart not enlarged. Aortic atherosclerosis. No failure. Lungs clear. Procedure Note Mary Rhodes MD - 12/09/2024 EXAMINATION: XR CHEST 1 VIEW HISTORY: The patient is an 83-year-old female who presents with atrial fibrillation. TECHNIQUE: AP portable view of the chest. FINDINGS: There is a cardiac device noted in situ. Heart not enlarged. Aortic atherosclerosis. No failure. Lungs clear. IMPRESSION: Left atrial closure device in place. Electronically signed by: Mary Rhodes M.D. Jesse Couch MD IMG XR PROCEDURES Final Result * aPTT (12/09/2024 3:09 PM CDT) aPTT 30 28 - 38 sec Comment: Interpretive Data Heparin therapeutic range: 66.0 - 100.0 seconds. Range based on correlation with therapeutic heparin activity range of 0.3 - 0.7 Units/mL. Current interpretive data was last revised on 2023. Blood 12/09/2024 3:09 PM CDT 12/09/2024 3:44 PM CDT Jesse Couch MD LAB BLOOD ORDERABLES Final Resul t Performing Organization Address [facility] de Phone Number NISHANT [address] [employer] [address] * Protime-INR (12/09/2024 3:09 PM CDT) PT 12.0 9.7 - 13.0 sec INR 1.11 0.90 - 1.20 NISHANT DOMINGUEZ Comment: Interpretive data Oral anticoagulant therapeutic ranges: Venous thromboembolism prophylaxis or treatment: 2.0-3.0 CARDIOLOGY Standard range: 2.0-3.0 High-intensity range: 2.5-3.5 Refer to indication-specific guidelines for appropriate target ranges for prosthetic heart valve replacement. Current interpretive data was last revised on 2019. Blood 12/09/2024 3:09 PM CDT 12/09/2024 3:44 PM CDT Jesse Couch MD LAB BLOOD ORDERABLES Final Resul t Performing Organization Address [facility] de Phone Number NISHANT DOMINGUEZ [address] [facility] [place] [address] * PERC MALINA CLOSURE W/IMPLANT (WATCHMAN) [id number] (12/09/2024 10:24 AM CDT) Anatomical Region Laterality Modality X-Ray Angiograph y Narrative 12/09/2024 10:49 AM CDT LEFT ATRIAL APPENDAGE OCCLUSION (LAAO) PROCEDURE REPORT DATE OF PROCEDURE: 12/09/24 INDICATION FOR PROCEDURE: Atrial fibrillation with contraindication for anticoagulation. BRIEF CLINICAL HISTORY: Maame Briscoe is a 83 y.o. female with paroxysmal atrial fibrillation and flutter, hypertension, Parkinson's disease, unsteady gait, history of frequent falls. Patient with paroxysmal atrial fibrillation and has been on anticoagulation with apixaban. Patient has had frequent falls due to unsteady gait likely from Parkinson's disease. After discussing benefits, risks and alternatives and after shared decision-making, patient was willing to proceed with percutaneous left atrial appendage closure. Current CHADSVASc score 4 and HASBLED score 1. Preprocedure cardiac CT was performed for assessment of the left atrial appendage. Left atrial appendage thrombus was ruled out prior to the procedure. Patient was given IV hydration with normal saline prior to the procedure. Benefits and risks of the procedure were discussed with the patient in depth, and informed consent was taken prior to the procedure. Risks of the procedure include but are not limited to vascular complications like groin hematoma, retroperitoneal bleed, vessel perforation; pericardial effusion or tamponade; cardiac arrhythmias; device embolization, air embolization, device thrombosis or leak, contrast induced nephropathy, . After discussing all the benefits, risks and alternatives, patient was willing to proceed with the procedure. PROCEDURES PERFORMED: Successful implantation of 25 mm Armando Amplatzer Amulet left atrial appendage occluder (CPT 06328) Intracardiac echocardiogram (3D/4D ICE) Deployment of two Perclose suture mediated closure devices at 2 separate right common femoral venous access sites SEDATION: General anesthesia - by anesthesiology team ACCESS SITES: Right common femoral vein PROCEDURE: After obtaining informed consent, patient was brought to the laborer landscape and prepped and draped in the usual sterile manner. Time-out and immediate reassessment of the patient was performed. Patient was placed under general anesthesia by the anesthesiologist team. Two right common femoral venous accesses were taken under ultrasound guidance with micropuncture needle. Preclose suture mediated vascular closure device were [place]. [place] [address] units of unfractionated heparin for procedural anticoagulation at different intervals during the procedure, to maintain ACT between 250-350 seconds. ACT was monitored throughout the procedure at regular intervals. Long 12 Palestinian sheath was advanced over 035 wire from the inferior access site in the right common femoral vein. 3D/4D ICE catheter was advanced in to right atrium. Kinsman sheath was advanced over 035 wire from the superior access site in the right common femoral vein. Atrial septal puncture was performed using Kinsman transseptal needle under intracardiac echo and fluoroscopic guidance. The sheath was advanced to the left atrium towards the pulmonary vein over the pre shaped wire. The sheath was taken out and it was exchanged with a 14 Palestinian amulet delivery sheath. The sheath was advanced into the left atrium, the atrial septum was dilated with the sheath, and then sheath was taken out over the wire and positioned in the right atrium/IVC junction. Next, ICE catheter was advanced into the left atrial cavity. Left atrial appendage measurement was performed. After this, the 14 Palestinian sheath was reintroduced over Kinsman wire. A 5 Palestinian pigtail catheter was advanced over the wire and the pre shaped wire was taken out. Left atrial pressure was measured at 17 mmHg. A 5 Palestinian pigtail catheter was later positioned in the left atrial appendage. Left atrial appendage was visualized after injection of contrast in JOHNSON caudal projection. The tip of the sheath was advanced close to the left atrial appendage orifice over the pigtail catheter. Next, the delivery sheath of the Amplatzer amulet was thoroughly prepped and flushed with normal saline multiple times to remove any air from the device. Wet to wet connection was performed and the delivery sheath was advanced to the left atrial appendage orifice through the delivery sheath after removal of the pigtail catheter. 25 mm Amulet at device was advanced into the left atrial appendage. The device had to be recaptured 3 times for proper placement. The closure device was deployed under 3D and 4D ICE and fluoroscopic guidance. Verification of proper Amulet device deployment was performed with CLOSE signs (Cx lobe at least 2/3 distal, lobe compression, orientation of lobe in line with axis of the MALINA neck, separation between the disc lobe and the disc, elliptical -concave disc). TUG test was performed. Post-implant ICE did not show nurys-device leak on the Doppler, however, on injection of the contrast, there was slight presence of contrast on the inferior edge of the lobe without significant nurys device leak. Preprocedure intracardiac echo showed trivial to small pericardial effusion which was unchanged postprocedure. After completion of successful procedure, hemostasis was achieved by deployment of Perclose suture mediated vascular closure devices. Patient received 50 mg protamine at the conclusion of the procedure. Patient tolerated procedure well without any immediate procedural complications. However, procedure was technically challenging due to patient's significant scoliosis. Estimated blood loss minimal. All specimens removed. Patient was transferred to the telemetry bed in hemodynamically stable condition. Patient's family was updated about the procedure. CONCLUSIONS: Successful implantation of 25 Amplatzer Amulet left atrial appendage closure device. PLAN/RECOMMENDATIONS: Patient will be admitted to the telemetry unit and will be monitored for any potential postprocedure complications. Follow-up AYO or CT heart in approximately 45 days for device surveillance to assess for any peridevice leak and device related thrombus. Dual antiplatelet therapy with aspirin and clopidogrel for 6 months, then single antiplatelet treatment. Endocarditis prophylaxis for 6 months. Outpatient cardiology follow-up. Voice recognition software was used to complete this document, therefore, feller hand variances may occur. Jesse Couch MD, [facility] 12/09/24 Jesse Couch MD CV ELECTROPHYSIOLOGY PROCS Final Result * (ABNORMAL) POC Activated Clotting Time, High Range (12/09/2024 10:12 AM CDT) ACT 304(H) 87 - 138 sec POC Performer [id number] [facility] Blood 12/09/2024 10:1 2 AM CDT 12/09/2024 10:12 AM CDT Jesse Couch MD LAB BLOOD ORDERABLES Final Resul t Performing Organization Address City/[facility] Co de Phone Number FROYLANSARAH DOMINGUEZ [address] [employer] [address] * (ABNORMAL) POC Activated Clotting Time, High Range (12/09/2024 9:24 AM CDT) ACT 282(H) 87 - 138 sec POC Performer [id number] [facility] Blood 12/09/2024 9:24 AM CDT 12/09/2024 9:24 AM CDT Jesse Couch MD LAB BLOOD ORDERABLES Final Resul t Performing Organization Address City/[facility] Co de Phone Number NISHANT DOMINGUEZ [address] Department [place] [employer] [place] [address] * (ABNORMAL) POC Activated Clotting Time, High Range (12/09/2024 9:10 AM CDT) ACT 230(H) 87 - 138 sec POC Performer [id number] NISHANT DOMINGUEZ Blood 12/09/2024 9:10 AM CDT 12/09/2024 9:10 AM CDT us Jesse Couch MD LAB BLOOD ORDERABLES Final Resul t NISHANT DOMINGUEZ [address] Department [place] [address] * AR AN ELECTIVE ENDOTRACHEAL AIRWAY (12/09/2024 8:31 AM CDT) Narrative Jose Salas AA - 12/09/2024 8:31 AM CDT Jose Salas AA 12/09/2024 8:32 AM Airway Patient location: OR Urgency: elective Indications for airway management: anesthesia Difficult airway: no Staff: Supervising provider: Jerrica Snyder DO Placed by: AA: Jose Salas AA Emergent airway documentation: Risks and benefits discussed: yes Consent obtained: yes Consent given by: patient Airway prep: Preoxygenated: yes Patient position: sniffing Mask difficulty assessment: 1 - vent by mask Spontaneous ventilation during airway: absent Sedation level during airway: GA Final airway details: Final airway type: endotracheal airway Tube type: ETT ETT size: 7.5 mm Cuffed: yes Technique used for successful ETT placement: direct laryngoscopy Insertion site: oral Blade type: Mitchell Blade size: 2 Cormack-Lehane (direct): grade I - full view of glottis Cuff inflated with: air Placement verified by: auscultation and CO2 detection Airway secured with: silk tape Number of attempts: 1 us Jerrica Snyder DO ANESTHESIA ORDERABLES Final Result * Check Sample (12/09/2024 8:02 AM CDT) ABO Rh A Positive [facility] OTHER 12/09/2024 8:02 AM CDT 12/09/2024 8:55 AM CDT Jesse Couch MD LAB BLOOD ORDERABLES Final Resul t NISHANT [address] Department [place] [address] * ECG 12 lead (11/30/2024 10:42 AM CDT) 11/30/2024 10:4 2 AM CDT Narrative [facility] - 11/30/2024 3:21 PM CDT Vent Rate: 56 bpm RR Interval: 1069 msec AR Interval: 181 msec QRS Duration: 81 msec QT Interval: 441 msec QTC Interval: 432 msec P-R-T Grand Chain: 54 - -8 - 20 degrees IMPRESSION: SINUS BRADYCARDIA NONSPECIFIC T-WAVE ABNORMALITY BORDERLINE ECG Electronically Signed By: Wilfredo Brown MD, [facility] Jesse Couch MD ECG ORDERABLES Final Result Performing Organization Address City/[facility] Co de Phone Number [facility] * eGFR (11/30/2024 10:21 AM CDT) eGFR 88 >=60 mL/min/1. 73 m2 Comment: Interpretive Data Reference Interval Normal >/= 90 mL/min/1.73m2 Mildly decreased* 60 - 89 mL/min/1.73m2 Mildly to moderately decreased 45 - 59 mL/min/1.73m2 Moderately to severely decreased 30 - 44 mL/min/1.73m2 Severely decreased 15 - 29 mL/min/1.73m2 Kidney Failure < 15 mL/min/1.73m2 *Relative to young adult level Estimated glomerular filtration rate is determined by the 2020 CKD-EPI equation recommended by the National Kidney Foundation (A Unifying Approach to GFR Estimation: Recommendations of the NKF-ASK Task Force on Reassessing the Inclusion of Race in Diagnosing Kidney Disease, JASN 202). The CKD-EPI equation should not be used for patients with unstable renal function and has not been validated in children and those over 70. Current interpretive data was last reviewed 2021. Blood 11/30/2024 10:2 1 AM CDT 11/30/2024 10:29 AM CDT us Jesse Couch MD LAB BLOOD ORDERABLES Final Resul t NISHANT [address] Department [place] [address] * Differential, auto (11/30/2024 10:21 AM CDT) Neutrophil abs 3.3 1.5 - 6.5 K/cumm Imm gran abs 0.0 0.0 - 0.1 K/cumm [facility] Lymphocyte abs 1.0 0.8 - 3.3 K/cumm [facility] Monocyte abs 0.6 0.2 - 0.8 K/cumm [facility] Eosinophil abs 0.4 0.0 - 0.5 K/cumm [facility] Basophil abs 0.1 0.0 - 0.1 K/cumm [facility] Neutrophil pct 62.3 % [facility] Comment: Interpretive Data Percent cell count reference ranges are not reported, since discordance with absolute values may lead to misinterpretation of CBC data. Current Interpretive Data was last revised on 2017. Imm gran pct 0.2 % [facility] Comment: Interpretive Data Percent cell count reference ranges are not reported, since discordance with absolute values may lead to misinterpretation of CBC data. Current Interpretive Data was last revised on 2017. Lymphocyte pct 19.4 % [facility] Comment: Interpretive Data Percent cell count reference ranges are not reported, since discordance with absolute values may lead to misinterpretation of CBC data. Current Interpretive Data was last revised on 2017. Monocyte pct 10.5 % [facility] Comment: Interpretive Data Percent cell count reference ranges are not reported, since discordance with absolute values may lead to misinterpretation of CBC data. Current Interpretive Data was last revised on 2017. Eosinophil pct 6.7 % [facility] Comment: Interpretive Data Percent cell count reference ranges are not reported, since discordance with absolute values may lead to misinterpretation of CBC data. Current Interpretive Data was last revised on 2017. Basophil pct 0.9 % [facility] Comment: Interpretive Data Percent cell count reference ranges are not reported, since discordance with absolute values may lead to misinterpretation of CBC data. Current Interpretive Data was last revised on 2017. Blood 11/30/2024 10:2 1 AM CDT 11/30/2024 10:29 AM CDT Jesse Couch MD LAB BLOOD ORDERABLES Final Resul t Performing Organization Address City/[facility]/ZIP Co de Phone Number NISHANT [address] Department [place] [address] * (ABNORMAL) CBC with auto differential (11/30/2024 10:21 AM CDT) WBC 5.4 3.8 - 9.9 K/cumm Hgb 12.5 11.9 - 15.5 g/dL [facility] Hct 37.5 35.6 - 45.5 % [facility] Plt 236 150 - 400 K/cumm [facility] MPV 9.1 9.1 - 12.3 fL [facility] RBC 3.74(L) 3.90 - 5.20 M/cumm [facility] MCV 100.3(H) 81.3 - 96.4 fL [facility] MCH 33.4(H) 27.1 - 33.3 pg [facility] MCHC 33.3 32.3 - 35.7 g/dL [facility] RDW CV 13.2 11.1 - 14.9 % [facility] RDW SD 48.7(H) 35.7 - 48.1 fL [facility] NRBC abs 0.00 0.00 - 0.01 K/cumm [facility] Blood 11/30/2024 10:2 1 AM CDT 11/30/2024 10:29 AM CDT Jesse Couch MD LAB BLOOD ORDERABLES Final Resul t Performing Organization Address City/[facility]/ZIP Co de Phone Number NISHANT [address] Department of [employer] [place], [place] [id number] * aPTT (11/30/2024 10:21 AM CDT) aPTT 35 28 - 38 sec Comment: Interpretive Data Heparin therapeutic range: 66.0 - 100.0 seconds. Range based on correlation with therapeutic heparin activity range of 0.3 - 0.7 Units/mL. Current interpretive data was last revised on 2023. Blood 11/30/2024 10:2 1 AM CDT 11/30/2024 10:29 AM CDT Jesse Couch MD LAB BLOOD ORDERABLES Final Resul t Performing Organization Address [facility] de Phone Number [facility] [address] [facility] [employer] [place] [address] * Protime-INR (11/30/2024 10:21 AM CDT) PT 12.8 9.7 - 13.0 sec INR 1.18 0.90 - 1.20 NISHANT Comment: Interpretive data Oral anticoagulant therapeutic ranges: Venous thromboembolism prophylaxis or treatment: 2.0-3.0 CARDIOLOGY Standard range: 2.0-3.0 High-intensity range: 2.5-3.5 Refer to indication-specific guidelines for appropriate target ranges for prosthetic heart valve replacement. Current interpretive data was last revised on 2019. Blood 11/30/2024 10:2 1 AM CDT 11/30/2024 10:29 AM CDT Jesse Couch MD LAB BLOOD ORDERABLES Final Resul t Performing Organization Address [facility] de Phone Number [facility] [address] [facility] [employer] [place] [address] * Type and screen (11/30/2024 10:21 AM CDT) ABO Rh A Positive [place], indirect Negative NISHANT Blood 11/30/2024 10:2 1 AM CDT 11/30/2024 10:30 AM CDT Narrative NISHANT - 11/30/2024 11:25 AM CDT Has the patient had Daratumumab or Isatuximab in the past 6 months?->Unknown Jesse Couch MD LAB BLOOD BANK TEST ORDERABLES F inal Result [facility] [address] Department [place] [address] * Comprehensive metabolic panel (11/30/2024 10:21 AM CDT) Sodium 137 135 - 145 mmol/L Potassium, pl 4.7 3.3 - 4.9 mmol/L [facility] Chloride 100 97 - 110 mmol/L [facility] CO2 27 22 - 32 mmol/L [facility] Anion gap 10 2 - 15 mmol/L [facility] BUN 25 6 - 25 mg/dL [facility] Creatinine 0.62 0.60 - 1.10 mg/dL [facility] Glucose 118 70 - 199 mg/dL [facility] Comment: Interpretive Data Fasting glucose >/= 126 mg/dl is diagnostic for diabetes. Fasting is defined as no caloric intake for at least 8 hours. Fasting glucose between 100 mg/dl to 125 mg/dl is diagnostic of prediabetes. In a patient with classic symptoms of hyperglycemia or hyperglycemic crisis, a random glucose >/= 200 mg/dl is diagnostic for diabetes. In the absence of unequivocal hyperglycemia, results should be confirmed by repeat testing. The classification and Diagnosis of Diabetes Diabetes Care 2021; 46: S19-S40. Current interpretive data was last revised 2022. Calcium 10.0 8.5 - 10.3 mg/dL [facility] Bilirubin, total 0.2 0.1 - 1.2 mg/dL [facility] Protein, pl 8.0 6.5 - 8.5 g/dL [facility] Albumin 4.2 3.5 - 5.0 g/dL [facility] Alk phos 108 40 - 130 Units/L [facility] ALT 8 7 - 45 Units/L [facility] AST 25 10 - 45 Units/L [facility] Blood 11/30/2024 10:2 1 AM CDT 11/30/2024 10:29 AM CDT Jesse Couch MD LAB [place]LOOD [place] [address] [address] Department [place] [address] * CT Heart Morphology W Contrast (11/12/2024 11:47 AM DIRECTOR OF GLOBAL MARKETING) Anatomical Region Laterality Modality Chest N/A Computed Tomogra phy 11/12/2024 1:19 PM DIRECTOR OF GLOBAL MARKETING Impressions 11/14/2024 6:53 AM DIRECTOR OF GLOBAL MARKETING 1. Left atrial appendage measurements for placement of occlusion device as described. 2. No evidence of left atrial appendage thrombus. 3. Incidental note of a left lower lobe 4 mm pulmonary nodule. Repeat assessment 1 year is recommended per Fleischner guidelines if patient is considered high risk. Dictated by: Herb Jenkins M.D. The radiology attending physician has personally reviewed this study, and had reviewed and/or edited this written report and agrees with it. Electronically signed by: Christie Long M.D. Narrative 11/14/2024 6:53 AM DIRECTOR OF GLOBAL MARKETING CT heart morphology with IV contrast. HISTORY: Left atrial appendage planning. Measurements in preparation for left atrial appendage occlusion device placement. COMPARISON: None TECHNIQUE: Heart CT performed during administration of 93 mL of Optiray 350, intravenously per pulmonary vein protocol. Images were transferred to an independent workstation for additional 3D post-processing. FINDINGS: Left atrial depth: 18 mm Left atrial length: 45 mm Left atrial appendage ostium: Area 58.8 cm squared, Circumference 8.84 cm, Diameter 30.7 x 24.1 mm. Left atrial appendage shape: Chicken wing No evidence of left atrial appendage thrombus. Left atrial diameter (atrial diastole): 50 mm Interatrial septum measures 9 mm thick and is free of device or thrombus. Esophagus lies immediately posterior to the Left superior and inferior pulmonary vein. Other findings: There is three-vessel coronary artery disease. There is mild cardiomegaly. There is bibasilar subsegmental atelectasis. There is a 4 mm nodule in the left lower lobe, solid. Right shoulder arthroplasty. 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 Procedure Note Christie Lnog MD - 11/14/2024 CT heart morphology with IV contrast. HISTORY: Left atrial appendage planning. Measurements in preparation for left atrial appendage occlusion device placement. COMPARISON: None TECHNIQUE: Heart CT performed during administration of 93 mL of Optiray 350, intravenously per pulmonary vein protocol. Images were transferred to an independent workstation for additional 3D post-processing. FINDINGS: Left atrial depth: 18 mm Left atrial length: 45 mm Left atrial appendage ostium: Area 58.8 cm squared, Circumference 8.84 cm, Diameter 30.7 x 24.1 mm. Left atrial appendage shape: Chicken wing No evidence of left atrial appendage thrombus. Left atrial diameter (atrial diastole): 50 mm Interatrial septum measures 9 mm thick and is free of device or thrombus. Esophagus lies immediately posterior to the Left superior and inferior pulmonary vein. Other findings: There is three-vessel coronary artery disease. There is mild cardiomegaly. There is bibasilar subsegmental atelectasis. There is a 4 mm nodule in the left lower lobe, solid. Right shoulder arthroplasty. 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 IMPRESSION: 1. Left atrial appendage measurements for placement of occlusion device as described. 2. No evidence of left atrial appendage thrombus. 3. Incidental note of a left lower lobe 4 mm pulmonary nodule. Repeat assessment 1 year is recommended per Fleischner guidelines if patient is considered high risk. Dictated by: Herb Jenkins M.D. The radiology attending physician has personally reviewed this study, and had reviewed and/or edited this written report and agrees with it. Electronically signed by: Christie Long M.D. Jesse Couch MD [facility] CT PROCEDURES Final Result from Last 3 Months Insurance MEDICARE [employer]IC[employer] [place] [place] [address] MEDICARE [facility] MEDICARE Advance Directives For more information, please contact: [phone] Documents on File Type Date Recorded Patient Continuous Towel Roller Expl anation ADVANCE DIRECTIVE 12/01/2018 4:58 AM POWER OF DETECTIVE [employer] * Full Code (Latest Code Status on File) Date Activated Date Inactivated Comments 11/03/2023 12:28 PM 11/07/2023 5:32 PM * Full Code Date Activated Date Inactivated Comments 11/25/2018 2:08 PM 11/28/2018 7:12 PM Care Teams Shoe Shanker Relationship Specialty Start Date End Date Theodore Farrar MD [address] [place] [address] PCP - General Family Practice 11/06/24 Bobo Lim PA [address] [facility] [address] [place] [address] Physician Director Of Dementia Operations 12/02/23 Andrew Vegas MD [address] [place] [address] [facility] [address], [place] [address] Surgeon Orthopedic Surgery 11/06/23
--- OUTSIDE RECORDS SUMMARY | 2024-12-27 17:00 | XMS_ITS ---
Author Organization [facility] Address [address] [place], [place] [address] Care Team Providers Care Environmental Services Tech Name Role Phone ELINOR SCHULTZ Unavailable [phone] Theodore Farrar Unavailable Unavailable GARETTASHLEEELINOR Unavailable [phone] REASON FOR VISIT *General care Encounters Encounter Location Date Provider Diagnosis [facility] [place] [address] [facility] [address] [place], [place] [id number] 11/18/2024 ELINOR PHILLIPS Plan Of Treatment Next Appt Details Provider Name:ELINOR SCHULTZ, 02:40:00 PM, [address], [address], [place], [place], [id number], Progress Notes * PRESLEY BRISCOE LDOB:1940 (84 yo F)Acc No.[id number]:11/18/2024 Patient: PRESLEY TALAMANTES Provider: Zachery Phillips DPM :1940 A ge:83 Y S ex:Female Date:11/18/2024 Address:[address], [facility] Subjective: * Chief Complaints: * 1 . *General care. * Medical History: Objective: * Vitals: Assessment: Plan: * Treatment: * Billing Information: * Visit Code: * Procedure Codes: * Electronic signature of ELINOR PHILLIPS DPM on 12/27/2024 at 04:59 PM CDT Sign off status: Pending * Provider: Zachery Pihllips, WILIAN Date: 0 11/18/2024 Generated for Ori zhang/Kassandra/Neil on: 0 12/27/2024 04:59 PM CDT
--- OUTSIDE RECORDS SUMMARY | 2024-12-27 17:00 | XMS_ITS ---
Author Organization [facility] Address [address] [place], [place] [address] Care Team Providers Care Concrete Mixing Plant Laborer Name Role Phone WALKER ALCALAIC Unavailable [phone] Theodore Farrar Unavailable Unavailable ELINOR PHILLIPS Unavailable [phone] REASON FOR VISIT *General care Vital Signs Height 67.00 in 09/16/2024 Weight 130 lbs 09/16/2024 BMI 20.36 kg/m2 09/16/2024 Height-cm 170.18 cm 09/16/2024 Weight-kg 58.97 kg 09/16/2024 Encounters Encounter Location Date Provider Diagnosis [facility] [place] [address] [place], [place] [id number] 09/16/2024 ELINOR PHILLIPS Onychomycosis B35.1 ; Pain in right toe(s) M79.674 ; Pain in left toe(s) M79.675 and Unspecified atherosclerosis of [place] arteries of extremities, bilateral legs I70.203 Assessments Encounter Date Diagnosis (ICD Code) Assessment Notes Treatment Notes Treatment Clinical Notes Section Notes 09/16/2024 Onychomycosis (ICD-10 - B35.1) 09/16/2024 Pain in right toe(s) (ICD-10 - M79.674) 09/16/2024 Pain in left toe(s) (ICD-10 - M79.675) 09/16/2024 Unspecified atherosclerosis of [place] arteries of extremities, bilateral legs (ICD-10 - [...] tissue removed Next Appt Details Provider Name:ELINOR SCHULTZ, 02:40:00 PM, [address], [facility] [address], [place], [place], [id number], Progress Notes * PRESLEY BRISCEO LDOB:1940 (83 yo F)Acc No.[id number]:09/16/2024 Patient: PRESLEY TALAMANTES Provider: Zachery Phillips DPM :1940 A ge:83 Y S ex:Female Date:09/16/2024 Address:[address] [place] [address] [address] [place] [address], [facility] Subjective: * Chief Complaints: * * General care * HPI: H PI: General care P atient presents to the office for at risk foot care. Patient states that their nails are thickened, elongated and painful. Patient states that it is aggravated by shoe gear. Onset is gradual. Patient denies being diabetic. Patient is taking prescription blood thinners. Date last seen by Dr. Kinney was 06/2024. Initials sea. * ROS: G eneral / Constitutional: Patient denies c hange in appetite, fatigue, chills, fever.? C ardiovascular: Chest pain d enies. N eurologic: Loss of use of extremity d enies. * Medical History: * Surgical History: * Hospitalization/Major Diagno stic Procedure: * Family History: F ather: PRN - Father: :: Cancer,,known absent , :: Heart Disease < 55 yrs,,known absent . M other: PRN - Mother: :: Cancer,,known absent , :: Arthritis,,known absent . * Social History: M igrated Social History: M igrated Social History: History of tobacco use : , Smoking Status : Never smoked. * Medications: Objective: * Vitals: W t: 130 lbs, Wt-k.97 kg, Ht: 67.00 in, Ht-cm: 170.18 cm, BMI: 20.36 Index, Body Surface Area: 1.67. * Examination: P hysical Examination: Gen: T he patient is awake, alert, well developed, well groomed and well nourished. They are in no apparent distress. . Musc: F oot structure is normal bilateral. Muscle strength is 5/5 to all joints bilaterally. There is no pain on palpation. . Derm: T here is absent hair growth on bilateral feet. There are pigmentary changes of bilateral foot. The skin color is red. The skin texture is thin and shiny. Distal cooling noted in bilateral feet. Nails are thick, discolored, and dystrophic with subungual debris. They are painful to palpation. . Neuro: G rossly intact to light touch bilateral . Vasc: P osterior tibialis pulse 0/4 bilaterally. Dorsalis pedis pulse 0/4 bilaterally. No edema noted. Capillary fill time > 3 seconds to all digits. . Assessment: * Assessment: 1. O nychomycosis - B35.1 (Primary) 2 . P ain in right toe(s) - M79.674? 3. P ain in left toe(s) - M79.675 4 . U nspecified atherosclerosis of [place] arteries of extremities, bilateral legs - I70.203 Plan: * Treatment: * Procedure Codes: 1 1055 TRIM SKIN LESION, Modifiers: Q8 79166 DEBRIDE NAIL, 6 OR MORE, Modifiers: 59 , Q8 * Billing Information: * Visit Code: * Procedure Codes: 75545 TRIM SKIN LESION. Modifiers: Q8 29955 DEBRIDE NAIL, 6 OR MORE. Modifiers: 59, Q8 * E SETUP OPERATOR Sign off status: Completed true * Provider: Zachery Phillips DPM Date: 11/17/2023 Generated for Ori zhang/Kassandra/Neil on: 12/27/2024 05:00 PM CDT History and Physical Notes * HPI (History [...]
--- OUTSIDE RECORDS SUMMARY | 2024-12-27 17:00 | XMS_ITS ---
Author Organization [facility] Address [address] [place], [place] [address] Care Team Providers Care Spring Former Name Role Phone ANTOINE ELINOR Unavailable [phone] Theodore Farrar Unavailable Unavailable Allergies No Known Allergies REASON FOR VISIT Patient presents for at-risk foot care . The patient has painful toenails and calluses that are causing difficulty with ambulation and shoegear. The onset is gradual Vital Signs Height 67.00 in 11/29/2024 Weight 130 lbs 11/29/2024 BMI 20.36 kg/m2 11/29/2024 Height-cm 170.18 cm 11/29/2024 Weight-kg 58.97 kg 11/29/2024 Encounters Encounter Location Date Provider Diagnosis [facility] [place] [address] [place], [place] [id number] 11/29/2024 ELINOR SCHULTZ Tinea unguium B35.1 ; Pain in right foot M79.671 ; Pain in left foot M79.672 ; Atherosclerosis of [place] arteries of extremities with intermittent claudication, bilateral legs I70.213 and Acquired keratosis [keratoderma] palmaris et plantaris L85.1 Assessments Encounter Date Diagnosis (ICD Code) Assessment Notes Treatment Notes Treatment Clinical Notes Section Notes 11/29/2024 Tinea unguium (ICD-10 - B35.1) Nails 1-5 Bilateral were debrided extensively with nail nippers and emery board, reducing length and girth to pink healthy tissue with any subungual debris and necrotic tissue removed 11/29/2024 Pain in right foot (ICD-10 - M79.671) 11/29/2024 Pain in left foot (ICD-10 - M79.672) 11/29/2024 Atherosclerosis of [place] arteries of extremities with intermittent claudication, bilateral legs (ICD-10 - I70.213) 11/29/2024 Acquired keratosis [keratoderma] palmaris et plantaris (ICD-10 - L85.1) A total of 2 corns or calluses, as described in the note above, were cut and pared utilizing a #15 blade Plan Of Treatment Treatment Notes Assessment Notes Tinea unguium Nails 1-5 Bilateral were debrided extensively with nail nippers and emery board, reducing length and girth to pink healthy tissue with any subungual debris and necrotic tissue removed Acquired keratosis [keratode rma] palmaris et plantaris A total of 2 corns or calluses, as described in the note above, were cut and pared utilizing a #15 blade Next Appt Details Follow Up: 10 - 12 weeks, Re ason: At-Risk Foot care, sooner if problems develop. Provider Name:ELINOR SCHULTZ, 02:40:00 PM, [address], [facility], [place], [place], [id number], Progress Notes * PRESLEY BRISCOE LDOB:1940 (84 yo F)Acc No.[id number]:11/29/2024 Patient: PRESLEY TALAMANTES Provider: Zachery Schultz DPM :1940 A ge:83 Y S ex:Female Date:11/29/2024 Address:[address] Subjective: * Chief Complaints: * 1 . Patient presents for at-risk foot care . The patient has painful toenails and calluses that are causing difficulty with ambulation and shoegear. The onset is gradual. * HPI: H PI: General care P atient presents to the office for at risk foot care. Patient states that their nails are thickened, elongated and painful. Patient states that it is aggravated by shoe gear. Onset is gradual. Patient denies being diabetic., Patient is taking prescription blood thinners., Date last seen by Dr. Farrar was 09/2024., Initials [facility]. * Medical History: P arkinson's disease. * Family History: F ather: PRN - Father: :: Cancer,,known absent , :: Heart Disease < 55 yrs,,known absent . M other: PRN - Mother: :: Cancer,,known absent , :: Arthritis,,known absent . * Social History: M igrated Social History: M igrated Social History: History of tobacco use : , Smoking Status : Never smoked. * Medications: N one * Allergies: N .K.D.A. Objective: * Vitals: W t: 130 lbs, Wt-k.97 kg, Ht: 67.00 in, Ht-cm: 170.18 cm, BMI: 20.36 Index, Body Surface Area: 1.67. * Examination: P hysical Examination: General appearance: A lert, pleasant, well-nourished and in no acute distress. D ermatologic: Skin findings: S kin is thin, atrophic and lacking pedal hair. Hypertrophic / hyperkeratotic lesion: l ateral aspect of the left hallux, plantar aspect of the left 4th digit. Nail pathology: N ails 1, 2, 3, 4, and 5 bilateral are elongated, thick, discolored, and dystrophic with subungual debris. They are painful to palpation. ? V ascular: Dorsalis pedis pulse: 1 /4 b ilateral. Posterior tibial pulse: 0 /4 bilateral. Capillary refill: g reater than 3 seconds. Edema: N o edema bilateral. N eurologic: Gross sensation G rossly intact to light touch. There is negative Tinel's sign. M usculoskeletal: Muscle Strength M uscle strength is 5/5 in regards to dorsiflexion, plantarflexion, inversion, and eversion in bilateral lower extremities. ? Assessment: * Assessment: 1. T inea unguium - B35.1 (Primary) 2 . P ain in right foot - M79.671 ? 3 . P ain in left foot - M79.672 4 . A therosclerosis of [place] arteries of extremities with intermittent claudication, bilateral legs - I70.213 5 . Acquired keratosis [keratoderma] palmaris et plantaris - L85.1 Plan: * Treatment: 2. A cquired keratosis [keratoderma] palmaris et plantaris Notes: A total of 2 corns or calluses, as described in the note above, were cut and pared utilizing a #15 blade * Procedure Codes: 1 1056 TRIM SKIN LESIONS, 2 TO 4, Modifiers: Q8 , 42586 DEBRIDE NAIL, 6 OR MORE, Modifiers: 59 , Q8 * Follow Up: 1 0 - 12 weeks (Reason: At-Risk Foot care, sooner if problems develop.) * Billing Information: * Visit Code: * Procedure Codes: 08184 TRIM SKIN LESIONS, 2 TO 4. Modifiers: Q8 68390 DEBRIDE NAIL, 6 OR MORE. Modifiers: 59, Q8 * Electronic signature of ELINOR SCHULTZ DPM on 12/27/2024 at 05:00 PM CDT Sign off status: Pending * Provider: Zachery Schultz DPM Date: 0 11/29/2024 Generated for Ori zhang/Kassandra/Neil on: 0 12/27/2024 05:00 PM CDT History and Physical [...] blood thinners., Date last seen by Dr. Farrar was 09/2024., Initials mca Examination Category Sub-Category Detail Notes Category Not es Dermatologic Skin findings: Skin is thin, at rophic and lacking pedal hair Nail pathology: Nails 1, 2, 3, 4, an d 5 bilateral are elongated, thick, discolored, and dystrophic with subungual debris. They are painful to palpation Hypertrophic / hyperkeratotic lesion: la teral aspect of the left hallux, plantar aspect of the left 4th digit Neurologic Gross sensation Grossly intact t o light touch. There is negative Tinel's sign Vascular Dorsalis pedis pulse: 1/4 bilateral Edema: No edema bilateral Capillary refill: greater than 3 secon ds Posterior tibial pulse: 0/4 bilateral Physical Examination General appearance: Alert, pleasant, well-nourished and in no acute distress Musculoskeletal Muscle Strength Muscle strength is 5/5 in regards to dorsiflexion, plantarflexion, inversion, and eversion in bilateral lower extremities
--- OUTSIDE RECORDS SUMMARY | 2024-12-27 17:00 | XMS_ITS | Referral Summary ---
Author Organization [facility] [address] [facility] [address] Address [address] [place] [address] Care Team Providers Care Surtass Analyst Name Role Phone Bobo Lim Unavailable Andrew Vegas MD Unavailable [phone] Theodore Farrar MD Primary Care Provider [phone] Encounters Date Type Department Care Team Description 12/16/2024 [facility] Post Discharge Follow up phone call [address] [address] Yolanda Gaona 12/15/2024 Orders Only [facility] Cardiac [facility]ter[facility] [address] [place] [address] Jesse Couch MD PAF (paroxysmal atrial fibrillation) (HCC) (Primary Dx); 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 12/13/2024 Telephone [facility] Cardiology [address] [facility] [address] [place] [phone] Jesse Couch MD 12/09/2024 6:04 AM CDT - 12/11/2024 1:59 PM CDT Hospital Encounter [address] [address] Jesse Couch MD PAF (paroxysmal atrial fibrillation) (HCC) Discharge Disposition: Discharge to home or self care 12/09/2024 7:52 AM CDT - 12/09/2024 11:59 PM CDT Hospital Encounter [facility] [address] [place] [address] Discharge Disposition: Discharge to home or self care 12/09/2024 8:00 AM CDT - 12/09/2024 10:30 AM CDT Surgery [facility] [address] [place] [address] Jesse Couch MD PERC MALINA CLOSE W/IMPLANT [address] 12/09/2024 8:17 AM CDT Anesthesia Event [facility] [address] [place] [address] Jerrica Snyder, Josselin Woods NP 11/30/2024 9:45 AM CDT Pre-Admission Testing [facility] Pre Anesthesia Testing [address] [place] [address] Encounter for preadmission testing (Primary Dx); Other specified coagulation defects 11/25/2024 Telephone [facility] Cardiology [address] [place] [address] [place] [phone] Jesse Couch MD Authorization/Certifi cation 11/23/2024 Cardiology Conference [facility] Non-invasive Cardiac Diagnostic Testing [address] [place] [address] Ramos Negro, JESSE 11/22/2024 Orders Only [facility] Non-invasive Cardiac Diagnostic Testing [address] [place] [address] Jesse Couch MD PAF (paroxysmal atrial fibrillation) (HCC) (Primary Dx) 11/22/2024 Telephone [facility] Cardiology [address] [facility] 8[address] [place] [address] [place] [address] Marianela Nicholas 11/19/2024 Telephone [facility] Cardiology [address] [place] [address] Deion Marin MD Atrial Fibrillation 11/15/2024 Results Follow-Up [facility] Cardiology [address] [place] [address] [place] [phone] Jesse Couch MD 11/12/2024 10:22 AM BUSINESS MANAGEMENT PROFESSOR - 11/12/2024 11:59 PM BUSINESS MANAGEMENT PROFESSOR Hospital Encounter [facility] [address] [place] [address] PAF (paroxysmal atrial fibrillation) (HCC); Frequent falls; Unsteady gait Discharge Disposition: Discharge to home or self care 11/05/2024 11:00 AM BUSINESS MANAGEMENT PROFESSOR Office Visit [facility] Cardiology [address] [facility] [address], [place] [address] Jesse Couch MD PAF (paroxysmal atrial fibrillation) (HCC) (Primary Dx); Chronic anticoagulation; Parkinson's disease, unspecified whether dyskinesia present, unspecified whether manifestations fluctuate (HCC); Primary hypertension; Frequent falls; Unsteady gait 10/26/2024 Telephone [facility] Cardiology [address] [place] [phone] Tatiana Clay NP 10/25/2024 10:00 AM BUSINESS MANAGEMENT PROFESSOR Office Visit [facility] Cardiology [address] [place] [phone] Tatiana Clay NP PAF (paroxysmal atrial fibrillation) (HCC) (Primary Dx); Encounter for monitoring sotalol therapy; Chronic anticoagulation; Hospital discharge follow-up 10/11/2024 Telephone [facility] Cardiology [address] [facility] [address] [place] [phone] Deion Marin MD Hospitalization for a-fib; Atrial Fibrillation from Last 3 Months Allergies No known [...] 1 tablet (75 mcg total) by mouth slubber operator before breakfast 4 Active sotaloL (BETAPACE) [...] sublingual tablet 3 (three) times a week [facility] 5 Active aspirin 81 mg chewable tabletIndicati [...] nasal spray 4 12/01/19 25 Discontin ued(Dupli loius order) phenytoin sodium extended (DILANTIN ORAL) Take [...] year. Assessment & Plan (09/07/2020 3:18 PM BUSINESS MANAGEMENT PROFESSOR): Patient has sided interval improvement with initiation [...] PCP. Assessment & Plan (09/07/2020 3:18 PM BUSINESS MANAGEMENT PROFESSOR): Patient's seizures remain controlled on Dilantin treatment. [...] noted. Assessment & Plan (09/07/2020 3:19 PM BUSINESS MANAGEMENT PROFESSOR): Patient has chronic right spastic hemiparesis associated [...] (10/21/2018): Added automatically from request for surgery [id number] Hemiplegia and hemiparesis f ollowing cerebral infarction affecting right dominant side 1940 Resolved Problems Problem Noted Date Diagnosed Date Resolved Date Primary osteoarthritis of left hip 10/24/2023 01/01/2024 Immunizations Immunization Administration Dates Next Due ZOSTER Recombinant 02/11/2022 Social History Tobacco Use Types Packs/Day Years Used Date Smoking Tobacco: Never Smokeless Tobacco: Never Alcohol Use Standard Drinks/Week Comments No 0 (1 standard drink = 0.6 oz pur e alcohol) [facility] Utilities Answer Date Recorded In the past 12 months has e electric, gas, oil, or water company [...] often do you attend chur ch or rastafari services? 1 to 4 times per year 11/04/2023 Do you belong to any clubs o r organizations such as sabianism groups, unions, fraternal or athletic groups, or [...] place to sleep or slept in a long term (including now)? No 11/04/2023 Personal Safety Answer Date Recorded Have you ever been in or are you currently in a harmful physical or emotional relationship or is someone making you feel afraid or unsafe? Denies 12/09/2024 Comments No Sex and Gender Information Value Date Recorded Sex Assigned at Not on file Legal Sex Female 10:51 AM BUSINESS MANAGEMENT PROFESSOR Gender Identity Female 03/13/2020 12:13 PM CDT [...] 12/09/2024 2:00 PM CDT Plan of Treatment Not on file Medical Devices Implanted Type Area Accountant Certified Public Device Identifier Shelf Expiration Date Model / Serial / Lot DepKulv [employer] [id number] Delta Xtend 27mm Cementless Shoulder Standard Component Glenoid Latex Free - [id number] Implanted:Qty: 1 on 11/25/2018 by Jesse Casas MD at [facility] [employer] [id number] / / [employer] [id number] Delta Xtend 4.5mm 42mm Lock Shoulder Glenoid Screw Bone Metaglene - [id number] Implanted:Qty: 1 on 11/25/2018 by Jesse Casas MD at [facility] [employer] [id number] / / [employer] [id number] Delta Xtend 38mm Glenosphere Shoulder Eccentric Component Glenoid Latex Free - [id number] Implanted:Qty: 1 on 11/25/2018 by Jesse Casas MD at [facility] [employer] [id number] / / [employer] [id number] Delta Xtend 4.5mm 36mm Lock Shoulder Glenoid Screw Bone Metaglene - [id number] Implanted:Qty: 1 on 11/25/2018 by Jesse Casas MD at [facility] [employer] [id number] / / [employer] [id number] Delta Xtend Cementless Modular Shoulder Right Epiphysis 155d 1 Latex Free - [id number] Implanted:Qty: 1 on 11/25/2018 by Jesse Casas MD at [facility] [employer] [id number] / / [employer] [id number] Global Unite 8mm 107mm Modular Shoulder Standard Stem Humeral - [id number] Implanted:Qty: 1 on 11/25/2018 by Jesse Casas MD at [facility] [employer] [id number] / / [employer] [id number] Delta Xtend 38mm Shoulder +6mm Standard Cup Humeral Polyethylene Latex Free - [id number] Implanted:Qty: 1 on 11/25/2018 by Jesse Casas MD at [facility] [employer] [id number] / / [employer] [place] 56mm 36mm Hip Neutral Liner Acetabular Altrx Sterile Latex Free [id number] - [id number] Implanted:Qty: 1 on 11/03/2023 by Andrew Vegas MD at [facility] Left: Hip [employer] 07/22/2028 [id number] / / [id number] [employer] [place] 6.5mm 35mm Acetabular Cancellous Screw Bone Sterile 1217-35-500 - [id number] Implanted:Qty: 1 on 11/03/2023 by Andrew Vegas MD at [facility] Left: Hip [employer] 07/22/2033 1217-35-500 / / [id number] [employer] Actis Collar Hip 7 High Offset Stem Femoral [id number] - [id number] Implanted:Qty: 1 on 11/03/2023 by Andrew Vegas MD at [facility] Left: Hip [employer] 12/20/2032 [id number] / / [id number] [employer] Articul/Jamel 36mm Cementless Hip +1.5mm /14 Taper Head Femoral Latex Free [id number] - [id number] Implanted:Qty: 1 on 11/03/2023 by Andrew Vegas MD at [facility] Left: Hip [employer] 08/21/2028 [id number] / / [id number] [employer] [place] 56mm Sector Hip Shell Acetabular Gription Sterile Latex Free [id number] - [id number] Implanted:Qty: 1 on 11/03/2023 by Andrew Vegas MD at [facility] Left: Hip [employer] 03/21/2033 [id number] / / [id number] [employer] Closure Repair Femoral Artery Suture Mediated Perclose Prostyle 05669-88 - [id number] Implanted:Qty: 1 on 12/09/2024 by Jesse Couch MD at [facility] [employer] 10/22/2026 [id number] / / [id number] [employer] System Closure Repair Femoral Artery Suture Mediated Perclose Prostyle 30992-82 - [id number] Implanted:Qty: 1 on 12/09/2024 by Jesse Couch MD at [facility] [employer] 09/21/2026 [id number] / / [id number] [employer] Occluder Cvasc Malina Flexible Braided Amplatzer Amulet 25mm Nitinol 8-[id number] - [id number] Implanted:Qty: 1 on 12/09/2024 by Jesse Couch MD at [facility] 06/21/2029 9-ACP2-01 0-0 / / [id number] Explanted Type Area Accountant Certified Public Device Identifier Shelf Expiration Date Model / Serial / Lot [employer] [id number] Stein[place] 3/32in 9in 2 Trocar Pin Fixation Nonsterile - [id number] Explanted:Qty: 1 on 11/25/2018 at [facility] [employer] [id number] / / Procedures Procedure [...] PM CDT PERC MALINA CLOSURE W/IMPLANT (WATCHMAN) [id number] Routine 12/09/2024 10:24 AM CDT PAF (paroxysmal atrial fibrillation) ([facility]) POCT ACTIVATED CLOTTING TIME, HIGH RANGE Routine 12/09/2024 10:12 AM CDT POCT ACTIVATED CLOTTING TIME, HIGH RANGE Routine 12/09/2024 9:24 AM CDT POCT ACTIVATED CLOTTING TIME, HIGH RANGE Routine 12/09/2024 9:10 AM CDT WI AN ELECTIVE ENDOTRACHEAL AIRWAY Routine 12/09/2024 8:31 [...] Read Routine (OP Routine) 11/12/2024 11:47 AM BUSINESS MANAGEMENT PROFESSOR PAF (paroxysmal atrial fibrillation) (HCC) Frequent falls Unsteady gait from Last 3 Months Results * TRANSTHORACIC ECHO (TTE) LIMITED/FOLLOW UP W LTD DOPPLER/CF WO CONTRAST (12/10/2024 11:37 AM CDT) Anatomical Region Laterality Modality Ultrasound 12/10/2024 11:1 9 AM CDT Narrative 12/10/2024 12:18 [place] [address] Limited Echocardiogram Report Patient Name: MAAME BRISCOE : 1940 Study Date: 12/10/2024 11:19:34 AM Gender: F Tech: Location: [id number] Ref Provider: ANTONELLA HARPER Height(Cm): 163 BSA: [...] Procedure Note Vlad Kaur MD - 12/10/2024 [place] [address] Limited Echocardiogram Report Patient Name: MAAME BRISCOE : 1940 Study Date: 12/10/2024 11:19:34 AM Gender: F Tech: Location: [address] Provider: ANTONELLA HARPRE Height(Cm): 163 BSA: 1.67 Weight(Kg): 61.7 Heart [...] Toan Kaur MD 12/10/2024 12:17:59 PM CDT us Antonella Harper NP CV ECHO PROCEDURES Final Result * ECG 12 lead (12/10/2024 7:17 AM CDT) 12/10/2024 7:17 AM CDT [facility] - 12/10/2024 10:20 AM CDT Vent Rate: 110 bpm RR Interval: 543 msec WI Interval: 0 msec QRS Duration: 77 msec QT Interval: 345 msec QTC Interval: 410 msec P-R-T [place]: 0 - -8 - 13 degrees IMPRESSION: ATRIAL FLUTTER NONSPECIFIC ST \T\ T-WAVE ABNORMALITY ABNORMAL RHYTHM ECG INTERPRETATION BASED ON A DEFAULT AGE OF 40 YEARS Electronically Signed By: Toan Kaur MD us Jesse Couch MD ECG ORDERABLES Final Result [facility] * eGFR (12/10/2024 3:34 AM CDT) eGFR [...] 3:34 AM CDT 12/10/2024 4:48 AM CDT us Jesse Couch MD LAB BLOOD ORDERABLES Final Resul t [facility] [address] Department [place] [address] * (ABNORMAL) Differential, auto (12/10/2024 3:34 AM CDT) Neutrophil abs 4.2 1.5 - 6.5 K/cumm Imm gran abs 0.0 0.0 - 0.1 K/cumm [facility] Lymphocyte abs 0.5(L) 0.8 - 3.3 K/cumm [facility] Monocyte abs 0.5 0.2 - 0.8 K/cumm [facility] Eosinophil abs 0.2 0.0 - 0.5 K/cumm [facility] Basophil abs 0.0 0.0 - 0.1 K/cumm [facility] Neutrophil pct 77.0 % [facility] Comment: Interpretive Data Percent cell count reference ranges are not reported, since discordance with absolute values may lead to misinterpretation of CBC data. Current Interpretive Data was last revised on 2017. Imm gran pct 0.6 % CERS[facility]AH Comment: Interpretive Data Percent cell count reference ranges are not reported, since discordance with absolute values may lead to misinterpretation of CBC data. Current Interpretive Data was last revised on 2017. Lymphocyte pct 9.1 % NISHANT Comment: Interpretive Data Percent cell count reference ranges are not reported, since discordance with absolute values may lead to misinterpretation of CBC data. Current Interpretive Data was last revised on 2017. Monocyte pct 8.4 % CERSARAH Comment: Interpretive Data Percent cell count reference ranges are not reported, since discordance with absolute values may lead to misinterpretation of CBC data. Current Interpretive Data was last revised on 2017. Eosinophil pct 4.3 % CERSARAH Comment: Interpretive Data Percent cell count reference ranges are not reported, since discordance with absolute values may lead to misinterpretation of CBC data. Current Interpretive Data was last revised on 2017. Basophil pct 0.6 % CERSARAH Comment: Interpretive Data Percent cell count reference ranges are not reported, since discordance with absolute values may lead to misinterpretation of CBC data. Current Interpretive Data was last revised on 2017. Blood 12/10/2024 3:34 AM CDT 12/10/2024 4:46 AM CDT us Jesse Couch MD LAB BLOOD ORDERABLES Final Resul t [facility] [address] Department [place] [address] * (ABNORMAL) CBC with auto differential (12/10/2024 3:34 AM CDT) WBC 5.4 3.8 - 9.9 K/cumm Hgb 11.3(L) 11.9 - 15.5 g/dL [facility] Hct 33.3(L) 35.6 - 45.5 % [facility] Plt 154 150 - 400 K/cumm CERNER [...] ORDERABLES Final Resul t Performing Organization Address [facility] de Phone Number [facility] [address] [facility] [place] [address] * Magnesium (12/10/2024 3:34 AM CDT) Magnesium 1.7 1.4 - 2.5 mg/dL Blood 12/10/2024 3:34 AM CDT 12/10/2024 4:48 AM CDT Jesse Couch MD LAB BLOOD ORDERABLES Final Resul t Performing Organization Address [facility] de Phone Number [facility] [address] [place] [address] * (ABNORMAL) Basic metabolic panel (12/10/2024 3:34 AM CDT) Sodium 139 135 - 145 mmol/L Potassium, pl 3.7 3.3 - 4.9 mmol/L [facility] Chloride 104 97 - 110 mmol/L [facility] CO2 21(L) 22 - 32 mmol/L [facility] Anion gap 14 2 - 15 mmol/L [facility] BUN 14 6 - 25 mg/dL [facility] Creatinine 0.63 0.60 - 1.10 mg/dL [facility] Glucose 126 70 - 199 mg/dL [facility] Comment: Interpretive Data Fasting glucose >/= 126 [...] 2022. Calcium 8.4(L) 8.5 - 10.3 mg/dL [facility] Blood 12/10/2024 3:34 AM CDT 12/10/2024 4:48 AM CDT Jesse Couch MD LAB BLOOD ORDERABLES Final Resul t Performing Organization Address City/[facility] Co de Phone Number [facility] [address] Department [place] [address] * ECG 12 lead (12/10/2024 2:19 AM CDT) 12/10/2024 2:19 AM CDT Narrative [facility] - 12/10/2024 10:22 AM CDT Vent Rate: 134 bpm RR Interval: 445 msec WI Interval: 0 msec QRS Duration: 75 msec QT Interval: 301 msec QTC Interval: 380 msec P-R-T [place]: 0 - -10 - 45 degrees IMPRESSION: ATRIAL FIBRILLATION WITH RAPID VENTRICULAR RESPONSE ST DEPRESSION, CONSIDER SUBENDOCARDIAL INJURY ABNORMAL ECG Electronically Signed By: Toan Kaur MD Jesse Couch MD ECG ORDERABLES Final Result Performing Organization Address City/[facility]/ZIP Co de Phone Number [facility] * POCT glucose (12/09/2024 5:49 PM CDT) [facility] Signature Glucose, POC 89 70 - 199 mg/dL POC Performer [id number] [facility] Blood 12/09/2024 5:49 PM CDT 12/09/2024 5:49 PM CDT Jesse Couch MD LAB POCT ORDERABLES - DEVICE Fin al Result [facility] DOMINGUEZ [address] [facility] Department [place] [address] * XR Chest 1 View (12/09/2024 3:09 [...] ORDERABLES Final Resul t Performing Organization Address [facility] Co de Phone Number NISH[facility] DOMINGUEZ [address] Department [place] [address] * Protime-INR (12/09/2024 3:09 PM CDT) PT 12.0 9.7 - 13.0 sec INR 1.11 0.90 - 1.20 NISHANT Comment: Interpretive data [...] ORDERABLES Final Resul t Performing Organization Address [facility] Co de Phone Number N[facility] DOMINGUEZ [address] [facility] [place] [address] * PERC MALINA CLOSURE W/IMPLANT (WATCHMAN) [id number] (12/09/2024 10:24 AM CDT) Anatomical Region Laterality [...] Amplatzer Amulet left atrial appendage occluder (CPT 95105) Intracardiac echocardiogram (3D/4D ICE) Deployment of two Perclose suture mediated closure devices at 2 separate right common femoral venous access sites SEDATION: General anesthesia - by anesthesiology team ACCESS SITES: Right common femoral vein PROCEDURE: After obtaining informed consent, patient was brought to the laborer brooder farm and prepped and draped in the usual sterile manner. Time-out and immediate reassessment of the patient was performed. Patient was placed under general anesthesia by the anesthesiologist team. Two right common femoral venous accesses were taken under ultrasound guidance with micropuncture needle. Preclose suture mediated vascular closure [place]. [place] [address] units of unfractionated heparin for procedural anticoagulation at different intervals during the procedure, to maintain ACT between 250-350 seconds. ACT was monitored throughout the procedure at regular intervals. Long 12 St Helenian sheath was advanced over 035 wire from the inferior access site in the right common femoral vein. 3D/4D ICE catheter was advanced in to right atrium. [place] sheath was advanced over 035 wire from the superior access site in the right common femoral vein. Atrial septal puncture was performed using [place] transseptal needle under intracardiac echo and fluoroscopic guidance. The sheath was advanced to the left atrium towards the pulmonary vein over the pre shaped wire. The sheath was taken out and it was exchanged with a 14 St Helenian amulet delivery sheath. The sheath was advanced into the left atrium, the atrial septum was dilated with the sheath, and then sheath was taken out over the wire and positioned in the right atrium/IVC junction. Next, ICE catheter was advanced into the left atrial cavity. Left atrial appendage measurement was performed. After this, the 14 St Helenian sheath was reintroduced over [place] wire. A 5 [address] Helenian pigtail catheter was advanced over the wire and the pre shaped wire was taken out. Left atrial pressure was measured at [address] [place] pigtail catheter was later positioned in the [...] was used to complete this document, therefore, alteration worker variances may occur. Jesse Couch MD, [facility] 12/09/24 Jesse Couch MD CV ELECTROPHYSIOLOGY PROCS Final Result * (ABNORMAL) POC Activated Clotting Time, High Range (12/09/2024 10:12 AM CDT) ACT 304(H) 87 - 138 sec POC Performer [id number] [facility] Blood 12/09/2024 10:1 2 AM CDT 12/09/2024 10:12 AM CDT Jesse Couch MD LAB BLOOD ORDERABLES Final Resul t Performing Organization Address City/[facility]/ZIP Co de Phone Number NISHANT DOMINGUEZ [address] [place] [address] * (ABNORMAL) POC Activated Clotting Time, High Range (12/09/2024 9:24 AM CDT) ACT 282(H) 87 - 138 sec POC Performer [id number] [facility] Blood 12/09/2024 9:24 AM CDT 12/09/2024 9:24 AM CDT Jesse Couch MD LAB BLOOD ORDERABLES Final Resul t FROY[facility]AH DOMINGUEZ [address] [place], [place] [id number] * (ABNORMAL) POC Activated Clotting Time, High Range (12/09/2024 9:10 AM CDT) ACT 230(H) 87 - 138 sec POC Performer [id number] [facility] Blood 12/09/2024 9:10 AM CDT 12/09/2024 9:10 AM CDT Jesse Couch MD LAB BLOOD ORDERABLES Final Resul t Performing Organization Address [facility] de Phone Number NISHANT DOMINGUEZ [address] Department [place] [address] * WI AN ELECTIVE ENDOTRACHEAL AIRWAY (12/09/2024 8:31 AM [...] 8:02 AM CDT 12/09/2024 8:55 AM CDT us Jesse Couch MD LAB BLOOD ORDERABLES Final Resul t Performing Organization Address [facility] Co de Phone Number NISHANT DOMINGUEZ [address] Department [place] [address] * ECG 12 lead (11/30/2024 10:42 AM CDT) 11/30/2024 10:4 2 AM CDT Narrative [facility] - 11/30/2024 3:21 PM CDT Vent Rate: 56 bpm RR Interval: 1069 msec WI Interval: 181 msec QRS Duration: 81 msec QT Interval: 441 msec QTC Interval: 432 msec P-R-T [place]: 54 - -8 - 20 degrees IMPRESSION: SINUS BRADYCARDIA NONSPECIFIC T-WAVE ABNORMALITY BORDERLINE ECG Electronically Signed By: Wilfredo Brown MD, [facility] us Jesse Couch MD ECG ORDERABLES Final Result [facility] [place] * eGFR (11/30/2024 10:21 AM CDT) eGFR [...] LAB BLOOD ORDERABLES Final Resul t N[facility]ANT [address] Department [place] [address] * Differential, auto (11/30/2024 10:21 AM CDT) Neutrophil abs 3.3 1.5 - 6.5 K/cumm Imm gran abs 0.0 0.0 - 0.1 K/cumm [facility] Lymphocyte abs 1.0 0.8 - 3.3 K/cumm [facility] Monocyte abs 0.6 0.2 - 0.8 K/cumm [facility] Eosinophil abs 0.4 0.0 - 0.5 K/cumm [facility] Basophil abs 0.1 0.0 - 0.1 K/cumm [facility] Neutrophil pct 62.3 % [facility] Comment: Interpretive Data Percent cell count reference ranges are not reported, since discordance with absolute values may lead to misinterpretation of CBC data. Current Interpretive Data was last revised on 2017. Imm gran pct 0.2 % [facility] Comment: Interpretive Data Percent cell count reference ranges are not reported, since discordance with absolute values may lead to misinterpretation of CBC data. Current Interpretive Data was last revised on 2017. Lymphocyte pct 19.4 % [facility] Comment: Interpretive Data Percent cell count reference ranges are not reported, since discordance with absolute values may lead to misinterpretation of CBC data. Current Interpretive Data was last revised on 2017. Monocyte pct 10.5 % [facility] Comment: Interpretive Data Percent cell count reference ranges are not reported, since discordance with absolute values may lead to misinterpretation of CBC data. Current Interpretive Data was last revised on 2017. Eosinophil pct 6.7 % [facility] Comment: Interpretive Data Percent cell count reference ranges are not reported, since discordance with absolute values may lead to misinterpretation of CBC data. Current Interpretive Data was last revised on 2017. Basophil pct 0.9 % [facility] Comment: Interpretive Data Percent cell count reference ranges are not reported, since discordance with absolute values may lead to misinterpretation of CBC data. Current Interpretive Data was last revised on 2017. Blood 11/30/2024 10:2 1 AM CDT 11/30/2024 10:29 AM CDT Jesse Couch MD LAB BLOOD ORDERABLES Final Resul t Performing Organization Address [facility] Co de Phone Number NISHANT Cortes[address] [place] [address] * (ABNORMAL) CBC with auto differential (11/30/2024 10:21 AM CDT) WBC 5.4 3.8 - 9.9 K/cumm Hgb 12.5 11.9 - 15.5 g/dL [facility] Hct 37.5 35.6 - 45.5 % [facility] Plt 236 150 - 400 K/cumm [facility] MPV 9.1 9.1 - 12.[address] [facility] RBC 3.74(L) 3.90 - 5.20 M/cumm [facility] MCV 100.3(H) 81.3 - 96.4 fL [facility] MCH 33.4(H) 27.1 - 33.3 pg [facility] MCHC 33.3 32.3 - 35.7 g/dL [facility] RDW CV 13.2 11.1 - 14.9 % [facility] RDW SD 48.7(H) 35.7 - 48.1 fL [facility] NRBC abs 0.00 0.00 - 0.01 K/cumm [facility] Blood 11/30/2024 10:2 1 AM CDT 11/30/2024 10:29 AM CDT Jesse Couch MD LAB BLOOD ORDERABLES Final Resul t Performing Organization Address City/[facility]/ZIP Co de Phone Number NISHANT DOMINGUEZ [address] Department [place] [address] * aPTT (11/30/2024 10:21 AM CDT) aPTT 35 28 - 38 sec Comment: Interpretive Data Heparin therapeutic range: 66.0 - 100.0 seconds. Range based on correlation with therapeutic heparin activity range of 0.3 - 0.7 Units/mL. Current interpretive data was last revised on 2023. Blood 11/30/2024 10:2 1 AM CDT 11/30/2024 10:29 AM CDT Result [facility] Jesse Couch MD LAB BLOOD ORDERABLES Final Resul t Performing Organization Address [facility] Co de Phone Number [facility] [address] [facility] [place] [address] * Protime-INR (11/30/2024 10:21 AM CDT) PT [...] 1 AM CDT 11/30/2024 10:29 AM CDT Result [facility] Jesse Couch MD LAB BLOOD ORDERABLES Final Resul t Performing Organization Address [facility] de Phone Number [facility] [address] [facility] [place] [address] * Type and screen (11/30/2024 10:21 AM CDT) ABO Rh A Positive [place], indirect Negative [facility] Blood 11/30/2024 10:2 1 AM CDT 11/30/2024 10:30 AM CDT [facility]ative [facility] - 11/30/2024 11:25 AM CDT Has the patient had Daratumumab or Isatuximab in the past 6 months?->Unknown Result [facility] Jesse Couch MD LAB BLOOD BANK TEST ORDERABLES F inal Result Performing Organization Address City/[facility] Co de Phone Number NISHANT DOMINGUEZ [address] Department [place] [address] * Comprehensive metabolic panel (11/30/2024 10:21 AM [...] BLOOD ORDERABLES Final Resul t NISHANT DOMINGUEZ [address] Department [place] [address] * CT Heart Morphology W Contrast (11/12/2024 11:47 AM BUSINESS MANAGEMENT PROFESSOR) Anatomical Region Laterality Modality Chest N/A Computed Tomogra phy 11/12/2024 1:19 PM BUSINESS MANAGEMENT PROFESSOR Impressions 11/14/2024 6:53 AM BUSINESS MANAGEMENT PROFESSOR 1. Left atrial appendage measurements for placement [...] Christie Long M.D. Narrative 11/14/2024 6:53 AM BUSINESS MANAGEMENT PROFESSOR CT heart morphology with IV contrast. HISTORY: [...] with multilevel degenerative changes. Procedure Note Christie Long MD - 11/14/2024 CT heart morphology with [...] by: Christie Long M.D. 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 12/01/2018 4:58 AM POWER OF IN HOUSE COUNSEL-MEDICAL * Full Code (Latest Code Status on File) Date Activated Date Inactivated Comments 11/03/2023 12:28 PM 11/07/2023 5:32 PM * Full Code Date Activated Date Inactivated Comments 11/25/2018 2:08 PM 11/28/2018 7:12 PM Care Teams Surtass Analyst Relationship Specialty Start Date End Date Theodore Farrar MD [address] [facility] [place] [id number] PCP - General Family Practice 11/06/24 Bobo Lim PA [address] [facility] [address] [place] [address] Physician Dynamo Tender 12/02/23 Andrew Vegas MD [address] [place] [address] [address] [place] [address] Surgeon Orthopedic Surgery 11/06/23
[2024-12-27] MEDS: dilTIAZem HCl INJ 25 MG/5 ML VIAL 10 MG IV PUSH (17:10)
--- OUTSIDE RECORDS SUMMARY | 2024-12-27 17:47 | XMS_ITS | Referral Summary ---
Author Organization [facility] [address] [facility] [address] [place] [address] Care Team Providers Care Hvac Specialist Name Role Phone Bobo Lim Unavailable [phone] Andrew Vegas MD Unavailable [phone] Theodore Farrar MD Primary Care Provider [phone] Encounters Date Type Department Care Team Description 12/16/2024 [facility] Post Discharge Follow up phone call [address] [address] Yolanda Gaona 12/15/2024 Orders Only [facility] Cardiac Catheterization Lab [address] [place] [address] Jesse Couch MD PAF (paroxysmal atrial fibrillation) (HCC) (Primary Dx); 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 [address] [place] [phone] Jesse Couch MD 12/09/2024 6:04 AM CDT - 12/11/2024 1:59 PM CDT Hospital Encounter [address] [address] Jesse Couch MD PAF (paroxysmal atrial fibrillation) (HCC) Discharge Disposition: Discharge to home or self care 12/09/2024 7:52 AM CDT - 12/09/2024 11:59 PM CDT Hospital Encounter [facility] Cardiac Catheterization Lab [address] [place] [address] Discharge Disposition: Discharge to home or self care 12/09/2024 8:00 AM CDT - 12/09/2024 10:30 AM CDT Surgery [facility] Cardiac Catheterization Lab [address] [place] [address] Jesse Couch MD PERC MALINA CLOSE W/IMPLANT [id number] 12/09/2024 8:17 AM CDT Anesthesia Event [facility] Cardiac Catheterization Lab [address] [place] [address] Jerrica Snyder, Josselin Woods NP 11/30/2024 9:45 AM CDT Pre-Admission Testing [facility] Pre Anesthesia Testing [address] [place] [address] Encounter for preadmission testing (Primary Dx); Other specified coagulation defects 11/25/2024 Telephone [facility] Cardiology [address] [place] [address] [place] [phone] Jesse Couch MD Authorization/Certifi cation 11/23/2024 Cardiology Conference [facility] Non-invasive Cardiac Diagnostic Testing [address] [place] [address] Ramos Negro, JESSE 11/22/2024 Orders Only [facility] Non-invasive Cardiac Diagnostic Testing [address] [place] [address] Jesse Couch MD PAF (paroxysmal atrial fibrillation) (HCC) (Primary Dx) 11/22/2024 Telephone [facility] Cardiology [address] [facility] 8th [place] [address] [place] [address] Marianela Nicholas 11/19/2024 Telephone [facility] Cardiology [address] [place] [address] Deion Marin MD Atrial Fibrillation 11/15/2024 Results Follow-Up [facility] Cardiology [address] [place] [address] [place] [phone] Jesse Couch MD 11/12/2024 10:22 AM NETWORK DIRECTOR - 11/12/2024 11:59 PM NETWORK DIRECTOR Hospital Encounter [facility] Imaging and Radiology [address] [place] [address] PAF (paroxysmal atrial fibrillation) (HCC); Frequent falls; Unsteady gait Discharge Disposition: Discharge to home or self care 11/05/2024 11:00 AM NETWORK DIRECTOR Office Visit [facility] Cardiology [address] [facility] [address] [address] Jesse Couch MD PAF (paroxysmal atrial fibrillation) (HCC) (Primary Dx); Chronic anticoagulation; Parkinson's disease, unspecified whether dyskinesia present, unspecified whether manifestations fluctuate (HCC); Primary hypertension; Frequent falls; Unsteady gait 10/26/2024 Telephone [facility] Cardiology [address] [place] [phone] Tatiana Clay NP 10/25/2024 10:00 AM NETWORK DIRECTOR Office Visit [facility] Cardiology [address] [place] [phone] Tatiana Clay NP PAF (paroxysmal atrial fibrillation) (HCC) (Primary Dx); Encounter for monitoring sotalol therapy; Chronic anticoagulation; Hospital discharge follow-up 10/11/2024 Telephone [facility] Cardiology [address] [facility] [address] [place] [phone] Deion Marin MD Hospitalization for a-fib; Atrial [...] 1 tablet (75 mcg total) by mouth morning show producer before breakfast 4 Active sotaloL (BETAPACE) 80 [...] sublingual tablet 3 (three) times a week [facility] 5 Active aspirin 81 mg chewable tabletIndicati [...] year. Assessment & Plan (09/07/2020 3:18 PM NETWORK DIRECTOR): Patient has sided interval improvement with initiation [...] PCP. Assessment & Plan (09/07/2020 3:18 PM NETWORK DIRECTOR): Patient's seizures remain controlled on Dilantin treatment. [...] noted. 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 1 to 4 times per year 11/04/2023 Do you belong to any clubs o r organizations such as caodaism groups, unions, fraternal or athletic groups, or [...] place to sleep or slept in a senior living (including now)? No 11/04/2023 Personal Safety Answer Date Recorded Have you ever been in or are you currently in a harmful physical or emotional relationship or is someone making you feel afraid or unsafe? Denies 12/09/2024 Comments No Sex and Gender Information Value Date Recorded Sex Assigned at Not on file Legal Sex Female 10:51 AM NETWORK DIRECTOR Gender Identity Female 03/13/2020 12:13 PM CDT [...] on file Medical Devices Implanted Type Area Theatre Professor Device Identifier Shelf Expiration Date Model / Serial / Lot DepSurgiLight Orthopaedics Inc [id number] Delta Xtend 27mm Cementless Shoulder Standard Component Glenoid Latex Free - [id number] Implanted:Qty: 1 on 11/25/2018 by Jesse Casas MD at [facility] [employer] [id number] / / Dep[employer] [id number] Delta Xtend 4.5mm 42mm Lock Shoulder Glenoid Screw Bone Metaglene - [id number] Implanted:Qty: 1 on 11/25/2018 by Jesse Casas MD at [facility] [employer] [id number] / / Dep[employer] [id number] Delta Xtend 38mm Glenosphere Shoulder Eccentric Component Glenoid Latex Free - [id number] Implanted:Qty: 1 on 11/25/2018 by Jesse Casas MD at [facility] [employer] [id number] / / Dep[employer] [id number] Delta Xtend 4.5mm 36mm Lock Shoulder Glenoid Screw Bone Metaglene - [id number] Implanted:Qty: 1 on 11/25/2018 by Jesse Casas MD at [facility] [employer] [id number] / / Dep[employer] [id number] Delta Xtend Cementless Modular Shoulder Right Epiphysis 155d 1 Latex Free - [id number] Implanted:Qty: 1 on 11/25/2018 by Jesse Casas MD at [facility] [employer] [id number] / / Dep[employer] [id number] Global Unite 8mm 107mm Modular Shoulder Standard Stem Humeral - [id number] Implanted:Qty: 1 on 11/25/2018 by Jesse Casas MD at [facility] [employer] [id number] / / Dep[employer] [id number] Delta Xtend 38mm Shoulder +6mm Standard Cup Humeral Polyethylene Latex Free - [id number] Implanted:Qty: 1 on 11/25/2018 by Jesse Casas MD at [facility] [employer] [id number] / / [employer] Boise 56mm 36mm Hip Neutral Liner Acetabular Altrx Sterile Latex Free [id number] - [id number] Implanted:Qty: 1 on 11/03/2023 by Andrew Vegas MD at [facility] Left: Hip [employer] 07/22/2028 [id number] / / [id number] [employer] Boise 6.5mm 35mm Acetabular Cancellous Screw Bone Sterile 1217-35-500 - [id number] Implanted:Qty: 1 on 11/03/2023 by Andrew Vegas MD at [facility] Left: Hip [employer] 07/22/2033 1217-35-500 / / [id number] [employer] Actis Collar Hip 7 High Offset Stem Femoral [id number] - [id number] Implanted:Qty: 1 on 11/03/2023 by Andrew Vegas MD at [facility] Left: Hip [employer] 12/20/2032 [id number] / / [id number] [employer] Articul/Jamel 36mm Cementless Hip +1.5mm /14 Taper Head Femoral Latex Free [id number] - [id number] Implanted:Qty: 1 on 11/03/2023 by Andrew Vegas MD at [facility] Left: Hip [employer] 08/21/2028 [id number] / / [id number] [employer] Boise 56mm Sector Hip Shell Acetabular Gription Sterile Latex Free [id number] - [id number] Implanted:Qty: 1 on 11/03/2023 by Andrew Vegas MD at [facility] Left: Hip [employer] 03/21/2033 [id number] / / [id number] [employer] System Closure Repair Femoral Artery Suture Mediated Perclose Prostyle 81918-57 - [id number] Implanted:Qty: 1 on 12/09/2024 by Jesse Couch MD at [facility] [employer] 10/22/2026 [id number] / / [id number] [employer] System Closure Repair Femoral Artery Suture Mediated Perclose Prostyle 30220-69 - [id number] Implanted:Qty: 1 on 12/09/2024 by Jesse Couch MD at [facility] [employer] 09/21/2026 [id number] / / [id number] [employer] Occluder Cvasc Malina Flexible Braided Amplatzer Amulet 25mm Nitinol 2-Hok5-046-025 - [id number] Implanted:Qty: 1 on 12/09/2024 by Jesse Couch MD at [facility] Vascular 06/21/2029 9-ACP2-01 0-0 / / [id number] Explanted Type Area Theatre Professor Device Identifier Shelf Expiration Date Model / Serial / Lot MicroInterpretOmics Surgical Instruments [id number] Steinmann 3/32in 9in 2 Trocar Pin Fixation Nonsterile - [id number] Explanted:Qty: 1 on 11/25/2018 at [facility] seedtagaire [employer] [id number] / / Procedures Procedure [...] PM CDT PERC MALINA CLOSURE W/IMPLANT (WATCHMAN) [id number] Routine 12/09/2024 10:24 AM CDT PAF (paroxysmal atrial fibrillation) ([facility]) POCT ACTIVATED CLOTTING TIME, HIGH RANGE Routine 12/09/2024 10:12 AM CDT POCT ACTIVATED CLOTTING TIME, HIGH RANGE Routine 12/09/2024 9:24 AM CDT POCT ACTIVATED CLOTTING TIME, HIGH RANGE Routine 12/09/2024 9:10 AM CDT MD AN ELECTIVE ENDOTRACHEAL AIRWAY Routine 12/09/2024 8:31 [...] Read Routine (OP Routine) 11/12/2024 11:47 AM NETWORK DIRECTOR PAF (paroxysmal atrial fibrillation) (HCC) Frequent falls Unsteady gait from Last 3 Months Results * TRANSTHORACIC ECHO (TTE) LIMITED/FOLLOW UP W LTD DOPPLER/CF WO CONTRAST (12/10/2024 11:37 AM CDT) Anatomical Region Laterality Modality Ultrasound 12/10/2024 11:1 9 AM CDT Narrative 12/10/2024 12:18 [place] [address] Limited Echocardiogram Report Patient Name: MAAME BRISCOE : 1940 Study Date: 12/10/2024 11:19:34 AM Gender: F Tech: Location: [id number] Ref Provider: ANTONELLA HARPER Height(Cm): 163 BSA: [...] Procedure Note Vlad Kaur MD - 12/10/2024 [place] [address] Limited Echocardiogram Report Patient Name: MAAME BRISCOE : 1940 Study Date: 12/10/2024 11:19:34 AM Gender: F Tech: Location: [address] Provider: ANTONELLA HARPER Height(Cm): 163 BSA: 1.67 [...] 7:17 AM CDT) 12/10/2024 7:17 AM CDT [facility] - 12/10/2024 10:20 AM CDT Vent Rate: 110 bpm RR Interval: 543 msec MD Interval: 0 msec QRS Duration: 77 msec QT Interval: 345 msec QTC Interval: 410 msec P-R-T Walters: 0 - -8 - 13 degrees IMPRESSION: ATRIAL FLUTTER NONSPECIFIC ST \T\ T-WAVE ABNORMALITY ABNORMAL RHYTHM ECG INTERPRETATION BASED ON A DEFAULT AGE OF 40 YEARS Electronically Signed By: Toan Kaur MD us Jesse Couch MD ECG ORDERABLES Final Result [facility] * eGFR (12/10/2024 3:34 AM CDT) [...] MD LAB BLOOD ORDERABLES Final Resul t [facility] [address] Department [place] [address] * (ABNORMAL) Differential, auto (12/10/2024 3:34 AM CDT) Neutrophil abs 4.2 1.5 - 6.5 K/cumm Imm gran abs 0.0 0.0 - 0.1 K/cumm [facility] Lymphocyte abs 0.5(L) 0.8 - 3.3 K/cumm [facility] Monocyte abs 0.5 0.2 - 0.8 K/cumm [facility] Eosinophil abs 0.2 0.0 - 0.5 K/cumm [facility] Basophil abs 0.0 0.0 - 0.1 K/cumm [facility] Neutrophil pct 77.0 % [facility] Comment: Interpretive Data Percent cell [...] LAB BLOOD ORDERABLES Final Resul t NISHANT [address] Department [place] [address] * (ABNORMAL) CBC with auto differential (12/10/2024 3:34 AM CDT) WBC 5.4 3.8 - 9.9 K/cumm Hgb 11.3(L) 11.9 - 15.5 g/dL [facility] Hct 33.3(L) 35.6 - 45.5 % [facility] Plt 154 150 - 400 K/cumm [...] ORDERABLES Final Resul t Performing Organization Address [facility] de Phone Number [facility] [address] [facility] [employer] [place] [address] * Magnesium (12/10/2024 3:34 AM CDT) Magnesium 1.7 1.4 - 2.5 mg/dL Blood 12/10/2024 3:34 AM CDT 12/10/2024 4:48 AM CDT Jesse Couch MD LAB BLOOD ORDERABLES Final Resul t Performing Organization Address [facility] de Phone Number [facility] [address] [employer] [place] [address] * (ABNORMAL) Basic metabolic panel (12/10/2024 3:34 AM CDT) Sodium 139 135 - 145 mmol/L Potassium, pl 3.7 3.3 - 4.9 mmol/L [facility] Chloride 104 97 - 110 mmol/L [facility] CO2 21(L) 22 - 32 mmol/L [facility] An[facility] gap 14 2 - 15 mmol/L [facility] BUN 14 6 - 25 mg/dL [facility] Creatinine 0.63 0.60 - 1.10 mg/dL [facility] Glucose 126 70 - 199 mg/dL [facility] Comment: Interpretive Data Fasting glucose [...] 2022. Calcium 8.4(L) 8.5 - 10.3 mg/dL [facility] Blood 12/10/2024 3:34 AM CDT 12/10/2024 4:48 AM CDT Jesse Couch MD LAB BLOOD ORDERABLES Final Resul t Performing Organization Address City/[facility] Co de Phone Number [facility] [address] Department [place] [address] * ECG 12 lead (12/10/2024 2:19 AM CDT) 12/10/2024 2:19 AM CDT Narrative [facility] - 12/10/2024 10:22 AM CDT Vent Rate: 134 bpm RR Interval: 445 msec MD Interval: 0 msec QRS Duration: 75 msec QT Interval: 301 msec QTC Interval: 380 msec P-R-T Walters: 0 - -10 - 45 degrees IMPRESSION: ATRIAL FIBRILLATION WITH RAPID VENTRICULAR RESPONSE ST DEPRESSION, CONSIDER SUBENDOCARDIAL INJURY ABNORMAL ECG Electronically Signed By: Toan Kaur MD Jesse Couch MD ECG ORDERABLES Final Result Performing Organization Address City/[facility]/ZIP Co de Phone Number [facility] * POCT glucose (12/09/2024 5:49 PM CDT) [facility] Signature Glucose, POC 89 70 - 199 mg/dL POC Performer [id number] [facility] Blood 12/09/2024 5:49 PM CDT 12/09/2024 5:49 PM CDT Jesse Couch MD LAB POCT ORDERABLES - DEVICE Fin al Result NISH[facility] DOMINGUEZ [address] [facility] Department [place] [address] * XR Chest 1 View (12/09/2024 3:09 [...] ORDERABLES Final Resul t Performing Organization Address [facility] Co de Phone Number [facility] DOMING[facility] [address] Department [place] [employer] [place] [address] * Protime-INR (12/09/2024 3:09 PM CDT) PT [...] ORDERABLES Final Resul t Performing Organization Address [facility] Co de Phone Number N[facility] DOMINGUEZ [address] [facility] [employer] [place] [address] * PERC MALINA CLOSURE W/IMPLANT (WATCHMAN) [id number] (12/09/2024 10:24 AM CDT) Anatomical Region Laterality [...] Amplatzer Amulet left atrial appendage occluder (CPT 01337) Intracardiac echocardiogram (3D/4D ICE) Deployment of two Perclose suture mediated closure devices at 2 separate right common femoral venous access sites SEDATION: General anesthesia - by anesthesiology team ACCESS SITES: Right common femoral vein PROCEDURE: After obtaining informed consent, patient was brought to the crime lab analyst and prepped and draped in the usual sterile manner. Time-out and immediate reassessment of the patient was performed. Patient was placed under general anesthesia by the anesthesiologist team. Two right common femoral venous accesses were taken under ultrasound guidance with micropuncture needle. Preclose suture mediated vascular closure device were [place]. [place] [address] units of unfractionated heparin for procedural anticoagulation at different intervals during the procedure, to maintain ACT between 250-350 seconds. ACT was monitored throughout the procedure at regular intervals. Long 12 Gambian sheath was advanced over 035 wire from the inferior access site in the right common femoral vein. 3D/4D ICE catheter was advanced in to right atrium. Needles sheath was advanced over 035 wire from the superior access site in the right common femoral vein. Atrial septal puncture was performed using Needles transseptal needle under intracardiac echo and fluoroscopic guidance. The sheath was advanced to the left atrium towards the pulmonary vein over the pre shaped wire. The sheath was taken out and it was exchanged with a 14 Gambian amulet delivery sheath. The sheath was advanced into the left atrium, the atrial septum was dilated with the sheath, and then sheath was taken out over the wire and positioned in the right atrium/IVC junction. Next, ICE catheter was advanced into the left atrial cavity. Left atrial appendage measurement was performed. After this, the 14 Gambian sheath was reintroduced over Needles wire. A 5 Gambian pigtail catheter was advanced over the wire and the pre shaped wire was taken out. Left atrial pressure was measured at 17 mmHg. A 5 Gambian pigtail catheter was later positioned in the [...] was used to complete this document, therefore, laborer wrecking and salvaging variances may occur. Jesse Couch MD, [facility] 12/09/24 Jesse Couch MD CV ELECTROPHYSIOLOGY PROCS Final Result * (ABNORMAL) POC Activated Clotting Time, High Range (12/09/2024 10:12 AM CDT) ACT 304(H) 87 - 138 sec POC Performer [id number] [facility] Blood 12/09/2024 10:1 2 AM CDT 12/09/2024 10:12 AM CDT Jesse Couch MD LAB BLOOD ORDERABLES Final Resul t Performing Organization Address City/[facility]/ZIP Co de Phone Number [facility] DOMINGUEZ [address] [employer] [place] [address] * (ABNORMAL) POC Activated Clotting Time, High Range (12/09/2024 9:24 AM CDT) ACT 282(H) 87 - 138 sec POC Performer [id number] [facility] Blood 12/09/2024 9:24 AM CDT 12/09/2024 9:24 AM CDT Jesse Couch MD LAB BLOOD ORDERABLES Final Resul t [facility] DOMING[facility] [address] [employer] [place], [place] [id number] * (ABNORMAL) POC Activated Clotting Time, High Range (12/09/2024 9:10 AM CDT) ACT 230(H) 87 - 138 sec POC Performer [id number] [facility] Blood 12/09/2024 9:10 AM CDT 12/09/2024 9:10 AM CDT Jesse Couch MD LAB BLOOD ORDERABLES Final Resul t Performing Organization Address [facility] de Phone Number N[facility] DOMINGUEZ [address] Department of [employer] [place] [address] * MD AN ELECTIVE ENDOTRACHEAL AIRWAY (12/09/2024 8:31 AM [...] ORDERABLES Final Resul t Performing Organization Address [facility] Co de Phone Number NISHANT DOMINGUEZ [address] Department [place] [address] * ECG 12 lead (11/30/2024 10:42 AM CDT) 11/30/2024 10:4 2 AM CDT Narrative [facility] - 11/30/2024 3:21 PM CDT Vent Rate: 56 bpm RR Interval: 1069 msec MD Interval: 181 msec QRS Duration: 81 msec QT Interval: 441 msec QTC Interval: 432 msec P-R-T Walters: 54 - -8 - 20 degrees IMPRESSION: SINUS BRADYCARDIA NONSPECIFIC T-WAVE ABNORMALITY BORDERLINE ECG Electronically Signed By: Wilfredo Brown MD, [facility] us Jesse Couch MD ECG ORDERABLES Final Result [facility] * eGFR (11/30/2024 10:21 AM CDT) [...] LAB BLOOD ORDERABLES Final Resul t NISHANT [address] Department [place] [address] * Differential, auto (11/30/2024 10:21 AM CDT) Neutrophil abs 3.3 1.5 - 6.5 K/cumm Imm gran abs 0.0 0.0 - 0.1 K/cumm [facility] Lymphocyte abs 1.0 0.8 - 3.3 K/cumm [facility] Monocyte abs 0.6 0.2 - 0.8 K/cumm [facility] Eosinophil abs 0.4 0.0 - 0.5 K/cumm [facility] Basophil abs 0.1 0.0 - 0.1 K/cumm [facility] Neutrophil pct 62.3 % [facility] Comment: Interpretive Data Percent cell count reference ranges are not reported, since discordance with absolute values may lead to misinterpretation of CBC data. Current Interpretive Data was last revised on 2017. Imm gran pct 0.2 % [facility] Comment: Interpretive Data Percent cell count reference ranges are not reported, since discordance with absolute values may lead to misinterpretation of CBC data. Current Interpretive Data was last revised on 2017. Lymphocyte pct 19.4 % [facility] Comment: Interpretive Data Percent cell count reference ranges are not reported, since discordance with absolute values may lead to misinterpretation of CBC data. Current Interpretive Data was last revised on 2017. Monocyte pct 10.5 % [facility] Comment: Interpretive Data Percent cell count reference ranges are not reported, since discordance with absolute values may lead to misinterpretation of CBC data. Current Interpretive Data was last revised on 2017. Eosinophil pct 6.7 % [facility] Comment: Interpretive Data Percent cell count reference ranges are not reported, since discordance with absolute values may lead to misinterpretation of CBC data. Current Interpretive Data was last revised on 2017. Basophil pct 0.9 % [facility] Comment: Interpretive Data Percent cell count reference ranges are not reported, since discordance with absolute values may lead to misinterpretation of CBC data. Current Interpretive Data was last revised on 2017. Blood 11/30/2024 10:2 1 AM CDT 11/30/2024 10:29 AM CDT Jesse Couch MD LAB BLOOD ORDERABLES Final Resul t Performing Organization Address [facility] Co de Phone Number NISHANT [address] Department [employer] [place] [address] * (ABNORMAL) CBC with auto differential (11/30/2024 10:21 AM CDT) WBC 5.4 3.8 - 9.9 K/cumm Hgb 12.5 11.9 - 15.5 g/dL [facility] Hct 37.5 35.6 - 45.5 % [facility] Plt 236 150 - 400 K/cumm [facility] MPV 9.1 9.1 - 12.3 fL [facility] RBC 3.74(L) 3.90 - 5.20 M/cumm [facility] CH MCV 100.3(H) 81.3 - 96.4 fL [facility] MCH 33.4(H) 27.1 - 33.3 pg [facility] MCHC 33.3 32.3 - 35.7 g/dL [facility] RDW CV 13.2 11.1 - 14.9 % [facility] CH RDW SD 48.7(H) 35.7 - 48.1 fL [facility] NRBC abs 0.00 0.00 - 0.01 K/cumm [facility] Blood 11/30/2024 10:2 1 AM CDT 11/30/2024 10:29 AM CDT Jesse Couch MD LAB BLOOD ORDERABLES Final Resul t Performing Organization Address City/[facility]/ZIP Co de Phone Number NISHANT DOMINGUEZ [address] Department of [employer] [place] [address] * aPTT (11/30/2024 10:21 AM CDT) aPTT 35 28 - 38 sec Comment: Interpretive Data Heparin therapeutic range: 66.0 - 100.0 seconds. Range based on correlation with therapeutic heparin activity range of 0.3 - 0.7 Units/mL. Current interpretive data was last revised on 2023. Blood 11/30/2024 10:2 1 AM CDT 11/30/2024 10:29 AM CDT Result [facility] Jesse Couch MD LAB BLOOD ORDERABLES Final Resul t Performing Organization Address [facility] Co de Phone Number [facility] [address] [facility] [employer] [address] * Protime-INR (11/30/2024 10:21 AM CDT) PT [...] AM CDT 11/30/2024 10:29 AM CDT Result [facility] Jesse Couch MD LAB BLOOD ORDERABLES Final Resul t Performing Organization Address [facility] de Phone Number [facility] [address] [facility] [employer] [address] * Type and screen (11/30/2024 10:21 AM CDT) ABO Rh A Positive [place], indirect Negative [facility] Blood 11/30/2024 10:2 1 AM CDT 11/30/2024 10:30 AM CDT Narrative [facility] - 11/30/2024 11:25 AM CDT Has the patient had Daratumumab or Isatuximab in the past 6 months?->Unknown Result [facility] Jesse Couch MD LAB BLOOD BANK TEST ORDERABLES F inal Result Performing Organization Address City/[facility] Co de Phone Number NISHANT DOMINGUEZ [address] Department [place] [address] * Comprehensive metabolic panel (11/30/2024 10:21 AM [...] BLOOD ORDERABLES Final Resul t NISHANT DOMINGUEZ [address] Department [place] [address] * CT Heart Morphology W Contrast (11/12/2024 11:47 AM NETWORK DIRECTOR) Anatomical Region Laterality Modality Chest N/A Computed Tomogra phy 11/12/2024 1:19 PM NETWORK DIRECTOR Impressions 11/14/2024 6:53 AM NETWORK DIRECTOR 1. Left atrial appendage measurements for placement [...] Christie Long M.D. Narrative 11/14/2024 6:[address] heart morphology with IV contrast. HISTORY: [...] Result from Last 3 Months Insurance MEDICARE [facility] MEDICARE [employer] [employer] MEDICARE [facility] MEDICARE Advance Directives For more information, please contact: [phone] Documents on File Type Date Recorded Patient Slip Injector And Applicator Expl anation ADVANCE DIRECTIVE 12/01/2018 4:58 AM POWER OF S[employer] LUNCH MONITOR-MEDICAL * Full Code (Latest Code Status on File) Date Activated Date Inactivated Comments 11/03/2023 12:28 PM 11/07/2023 5:32 PM * Full Code Date Activated Date Inactivated Comments 11/25/2018 2:08 PM 11/28/2018 7:12 PM Care Teams Hvac Specialist Relationship Specialty Start Date End Date Theodore Farrar MD [address] [facility] [place] [id number] PCP - General Family Practice 11/06/24 Bobo Lim PA [address] [facility] [address] [place] [address] Physician Optical Goods Drilling Machine Operator 12/02/23 Andrew Vegas MD [address] [place] [address] [address] [place] [address] Surgeon Orthopedic Surgery 11/06/23
--- OUTSIDE RECORDS SUMMARY | 2024-12-27 17:47 | XMS_ITS ---
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
--- OUTSIDE RECORDS SUMMARY | 2024-12-27 17:47 | XMS_ITS | Encounter Summary ---
Author Organization [facility] Healthcare Address [address] [place] [address] Care Team Providers Care Sample Distributor Name Role Phone Bobo Lim Unavailable [phone] Andrew Vegas MD Unavailable [phone] Theodore Farrar MD Primary Care Provider [phone] Encounter Details Date Type Department Care Team (Late st Contact Info) Description 11/23/2024 Cardiology Conference [facility] Non-invasive Cardiac Diagnostic Testing [address] [place] [address] Ramos Negro, JESSE Social History Tobacco Use Types Packs/Day Years Used Date Smoking Tobacco: Never Smokeless Tobacco: Never Alcohol Use Standard Drinks/Week Comments No 0 (1 standard drink = 0.6 oz pur e alcohol) [facility] Utilities Answer Date Recorded In the past 12 months has [employer], gas, oil, or water [employer] threatened to shut off services in your [...] week 11/04/2023 How often do you attend [facility] or latter-day services? 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 Gender Identity Female 03/13/2020 12:13 PM CDT Sexual Orientation Not on file documented as of this encounter Plan of Treatment Not on file documented as of this encounter Visit Diagnoses Not on filedocumented in this encounter Care Teams Sample Distributor Relationship Specialty Start Date End Date Theodore Farrar MD [address] [place] [address] PCP - General Family Practice 11/06/24 Bobo Lim PA [address] [place] [address] Physician Supply Chain Logistics Manager 12/02/23 Andrew Vegas MD [address] [place] [address] [address] [place] [address] Surgeon Orthopedic Surgery 11/06/23 documented as of this encounter
--- OUTSIDE RECORDS SUMMARY | 2024-12-27 17:47 | XMS_ITS | Encounter Summary ---
Author Organization [facility] Healthcare Address [address] [place] [address] Care Team Providers Care Multineedle Shirrer Name Role Phone Bobo Lim Unavailable [phone] Andrew Vegas MD Unavailable Theodore Farrar MD Primary Care Provider [phone] Encounter Details Date Type Department Care Team (Late st Contact Info) Description 12/16/2024 [facility] Post Discharge Follow up phone call [facility] [address] [place] [address] Yolanda Gaona Social History Tobacco Use Types Packs/Day Years Used Date Smoking Tobacco: Never Smokeless Tobacco: Never Alcohol Use Standard Drinks/Week Comments No 0 (1 standard drink = 0.6 oz pur e alcohol) [facility] Utilities Answer Date Recorded In the past 12 months has [employer], gas, oil, or water [employer] threatened to shut off services in your [...] week 11/04/2023 How often do you attend [facility] or islam services? 1 to 4 times per year 11/04/2023 Do you belong to any clubs o r organizations such as synagogue groups, unions, fraternal or athletic groups, or [...] place to sleep or slept in a group home (including now)? No 11/04/2023 Personal Safety Answer Date Recorded Have you ever been in or are you currently in a harmful physical or emotional relationship or is someone making you feel afraid or unsafe? 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 Gender Identity Female 03/13/2020 12:13 PM CDT Sexual Orientation Not on file documented as of this encounter Plan of Treatment Not on file documented as of this encounter Visit Diagnoses Not on filedocumented in this encounter Care Teams Multineedle Shirrer Relationship Specialty Start Date End Date Theodore Farrar MD [address] [place] [address] PCP - General Family Practice 11/06/24 Bobo Lim PA [address] [place] [address] Physician Clinical Documentation Manager 12/02/23 Andrew Vegas MD [address] [place] [address] [address] [place] [address] Surgeon Orthopedic Surgery 11/06/23 documented as of this encounter
--- OUTSIDE RECORDS SUMMARY | 2024-12-27 17:47 | XMS_ITS | Clinical Summary ---
Author Organization [facility] [address] [facility] [address] Address [address] [place] [address] Care Team Providers Care Test Engineering Technician Name Role Phone Bobo Lim Unavailable [phone] Andrew Vegas MD Unavailable [phone] Theodore Farrar MD Primary Care Provider [phone] Allergies No known active allergies Medications PHENobarbital [...] 1 tablet (75 mcg total) by mouth labor operator before breakfast 4 Active sotaloL (BETAPACE) [...] year. Assessment & Plan (09/07/2020 3:18 PM LAUNDRY HELPER): Patient has sided interval improvement with initiation [...] PCP. Assessment & Plan (09/07/2020 3:18 PM LAUNDRY HELPER): Patient's seizures remain controlled on Dilantin treatment. [...] noted. Assessment & Plan (09/07/2020 3:19 PM LAUNDRY HELPER): Patient has chronic right spastic hemiparesis associated [...] (10/21/2018): Added automatically from request for surgery [id number] Hemiplegia and hemiparesis f ollowing cerebral infarction affecting right dominant side 1940 Resolved Problems Problem Noted Date Diagnosed Date Resolved Date Primary osteoarthritis of left hip 10/24/2023 01/01/2024 Encounters Date Type Department Care Team Description 12/16/2024 [facility] Post Discharge Follow up phone call [address] [address] Gaona Yolanda Ashlyndebby 12/15/2024 Orders Only [facility] Cardiac Catheterization Lab [address] [place] [address] Jesse Couch MD PAF (paroxysmal atrial fibrillation) (HCC) (Primary Dx); 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 12/13/2024 Telephone [facility] Cardiology [address] [place] [address] [place] [phone] Jesse Couch MD 12/09/2024 8:17 AM CDT Anesthesia Event [facility] Cardiac Catheterization Lab [address] [place] [address] Jerrica Snyder DO Barnhart, Lynlee Jo, NP 12/09/2024 8:00 AM CDT - 12/09/2024 10:30 AM CDT Surgery [facility] Cardiac Catheterization Lab [address] [place] [address] Jesse Couch MD PERC MALINA CLOSE W/IMPLANT [id number] 12/09/2024 7:52 AM CDT - 12/09/2024 11:59 PM CDT Hospital Encounter [facility] Cardiac Catheterization Lab [address] [place] [address] Discharge Disposition: Discharge to home or self care 12/09/2024 6:04 AM CDT - 12/11/2024 1:59 PM CDT Hospital Encounter [address] [address] Jesse Couch MD PAF (paroxysmal atrial fibrillation) (HCC) Discharge Disposition: Discharge to home or self care 11/30/2024 9:45 AM CDT Pre-Admission Testing [facility] Pre Anesthesia Testing [address] [place], [place] [id number] Encounter for preadmission testing (Primary Dx); Other specified coagulation defects 11/25/2024 Telephone [facility] Cardiology [address] [place] [phone] Jesse Couch MD Authorization/Certifi cation 11/23/2024 Cardiology Conference [facility] Non-invasive Cardiac Diagnostic Testing [id number] [place] [address] Ramos Negro RN 11/22/2024 Orders Only [facility] Non-invasive Cardiac Diagnostic Testing [address] [place] [address] Jesse Couch MD PAF (paroxysmal atrial fibrillation) (HCC) (Primary Dx) 11/22/2024 Telephone [facility] Cardiology [facility] 8th [place] [address] [place] [address] Marianela Nicholas 11/19/2024 Telephone [facility] Cardiology [address] [place] [address] [address] [place] [phone] Deion Marin MD Atrial Fibrillation 11/15/2024 Results Follow-Up [facility] Cardiology [address] [place] [address] [place] [phone] Jesse Couch MD 11/12/2024 10:22 AM LAUNDRY HELPER - 11/12/2024 11:59 PM LAUNDRY HELPER Hospital Encounter [facility] Imaging and Radiology [address] [place] [address] PAF (paroxysmal atrial fibrillation) (HCC); Frequent falls; Unsteady gait Discharge Disposition: Discharge to home or self care 11/05/2024 11:00 AM LAUNDRY HELPER Office Visit [facility] Cardiology [address] [place] [address] [place] [phone] Jesse Couch MD PAF (paroxysmal atrial fibrillation) (HCC) (Primary Dx); Chronic anticoagulation; Parkinson's disease, unspecified whether dyskinesia present, unspecified whether manifestations fluctuate (HCC); Primary hypertension; Frequent falls; Unsteady gait 10/26/2024 Telephone [facility] Cardiology [facility] [address] [place] [phone] Tatiana Clay NP 10/25/2024 10:00 AM LAUNDRY HELPER Office Visit [facility] Cardiology [facility] [address] [place] [phone] Danna, Tatiana Ashlie, PATTERNMAKER SAMPLE PAF (paroxysmal atrial fibrillation) (HCC) (Primary Dx); Encounter for monitoring sotalol therapy; Chronic anticoagulation; Hospital discharge follow-up 10/11/2024 Telephone [facility] Cardiology [address] [place] [address] Deion Marin MD Hospitalization for [...] 12/09/2024 N/A Procedure: PERC MALINA CLOSE W/IMPLANT [id number]; Surgeon: Jesse Couch MD; Location: CARDIAC EMBEDDED LINUX DEVELOPER; Service: Cardiovascular; Laterality: N/A; Medical devices from [...] drink = 0.6 oz pur e alcohol) [facility] Utilities Answer Date Recorded In the [...] often do you attend chur ch or judaism services? 1 to 4 times per year 11/04/2023 Do you belong to any clubs o r organizations such as latter day groups, unions, fraternal or athletic groups, or [...] place to sleep or slept in a half-way (including now)? No 11/04/2023 Personal Safety Answer Date Recorded Have you ever been in or are you currently in a harmful physical or emotional relationship or is someone making you feel afraid or unsafe? Denies 12/09/2024 Comments No Sex and Gender Information Value Date Recorded Sex Assigned at Not on file Legal Sex Female 10:51 AM LAUNDRY HELPER Gender Identity Female 03/13/2020 12:13 PM CDT [...] 10/24/2023, 07/21/2020 Medical Devices Implanted Type Area Fruit Packer Face And Fill Device Identifier Shelf Expiration Date Model / Serial / Lot [employer] [id number] Delta Xtend 27mm Cementless Shoulder Standard Component Glenoid Latex Free - [id number] Implanted:Qty: 1 on 11/25/2018 by Jesse Casas MD at [facility] [employer] [id number] / / [employer] [id number] Delta Xtend 4.5mm 42mm Lock Shoulder Glenoid Screw Bone Metaglene - [id number] Implanted:Qty: 1 on 11/25/2018 by Jesse Casas MD at [facility] [employer] [id number] / / [employer] [id number] Delta Xtend 38mm Glenosphere Shoulder Eccentric Component Glenoid Latex Free - [id number] Implanted:Qty: 1 on 11/25/2018 by Jesse Casas MD at [facility] [employer] [id number] / / [employer] [id number] Delta Xtend 4.5mm 36mm Lock Shoulder Glenoid Screw Bone Metaglene - [id number] Implanted:Qty: 1 on 11/25/2018 by Jesse Casas MD at [facility] [employer] [id number] / / [employer] [id number] Delta Xtend Cementless Modular Shoulder Right Epiphysis 155d 1 Latex Free - [id number] Implanted:Qty: 1 on 11/25/2018 by Jesse Casas MD at [facility] [employer] [id number] / / [employer] [id number] Global Unite 8mm 107mm Modular Shoulder Standard Stem Humeral - [id number] Implanted:Qty: 1 on 11/25/2018 by Jesse Casas MD at [facility] [employer] [id number] / / [employer] [id number] Delta Xtend 38mm Shoulder +6mm Standard Cup Humeral Polyethylene Latex Free - [id number] Implanted:Qty: 1 on 11/25/2018 by Jesse Casas MD at [facility] [employer] [id number] / / [employer] Gulfport 56mm 36mm Hip Neutral Liner Acetabular Altrx Sterile Latex Free [id number] - [id number] Implanted:Qty: 1 on 11/03/2023 by Andrew Vegas MD at [facility] Left: Hip [employer] 07/22/2028 [id number] / / [id number] [employer] [place] 6.5mm 35mm Acetabular Cancellous Screw Bone Sterile 1217-35-500 - [id number] Implanted:Qty: 1 on 11/03/2023 by Andrwe Vegas MD at [facility] Left: Hip [employer] 07/22/2033 1217-35-500 / / [id number] [employer] Actis Collar Hip 7 High Offset Stem Femoral [id number] - [id number] Implanted:Qty: 1 on 11/03/2023 by Andrew Vegas MD at [facility] Left: Hip [employer] 12/20/2032 [id number] / / [id number] [employer] Articul/Jamel 36mm Cementless Hip +1.5mm 12/14 Taper Head Femoral Latex Free [id number] - [id number] Implanted:Qty: 1 on 11/03/2023 by Andrew Vegas MD at [facility] Left: Hip [employer] 08/21/2028 [id number] / / [id number] [employer] [place] 56mm Sector Hip Shell Acetabular Gription Sterile Latex Free [id number] - [id number] Implanted:Qty: 1 on 11/03/2023 by Andrew Vegas MD at [facility] Left: Hip [employer] 03/21/2033 [id number] / / [id number] [employer] System Closure Repair Femoral Artery Suture Mediated Perclose Prostyle 75250-08 - [id number] Implanted:Qty: 1 on 12/09/2024 by Jesse Couch MD at [facility] [employer] 10/22/2026 87675-13 / / [id number] [employer] System Closure Repair Femoral Artery Suture Mediated Perclose Prostyle 31997-90 - [id number] Implanted:Qty: 1 on 12/09/2024 by Jesse Couch MD at [facility] [employer] 09/21/2026 83044-40 / / [id number] [employer] Occluder Cvasc Malina Flexible Braided Amplatzer Amulet 25mm Nitinol [id number]-Cjo7-442-025 - [id number] Implanted:Qty: 1 on 12/09/2024 by Jesse Couch MD at [facility] [employer] 06/21/2029 9-ACP2-01 0-0 25 / / [id number] Explanted Type Area Fruit Packer Face And Fill Device Identifier Shelf Expiration Date Model / Serial / Lot [employer] [id number] Ramon 3/32in 9in 2 Trocar Pin Fixation Nonsterile - [id number] Explanted:Qty: 1 on 11/25/[address] [facility] [employer] [id number] / / Procedures Procedure [...] PM CDT PERC MALINA CLOSURE W/IMPLANT (WATCHMAN) [id number] Routine 12/09/2024 10:24 AM CDT PAF (paroxysmal atrial fibrillation) ([facility]) POCT ACTIVATED CLOTTING TIME, HIGH RANGE Routine 12/09/2024 10:12 AM CDT POCT ACTIVATED CLOTTING TIME, HIGH RANGE Routine 12/09/2024 9:24 AM CDT POCT ACTIVATED CLOTTING TIME, HIGH RANGE Routine 12/09/2024 9:10 AM CDT MA AN ELECTIVE ENDOTRACHEAL AIRWAY Routine 12/09/2024 8:31 [...] Read Routine (OP Routine) 11/12/2024 11:47 AM LAUNDRY HELPER PAF (paroxysmal atrial fibrillation) (HCC) Frequent falls Unsteady gait from Last 3 Months Results * TRANSTHORACIC ECHO (TTE) LIMITED/FOLLOW UP W LTD DOPPLER/CF WO CONTRAST (12/10/2024 11:37 AM CDT) Anatomical Region Laterality Modality Ultrasound 12/10/2024 11:1 9 AM CDT Narrative 12/10/2024 12:18 [place] [address] Limited Echocardiogram Report Patient Name: MAAME BRISCOE : 1940 Study Date: 12/10/2024 11:19:34 AM Gender: F Tech: ALEX Location: [id number] Ref Provider: ANTONELLA HARPER Height(Cm): 163 BSA: [...] Procedure Note Vlad Kaur MD - 12/10/2024 [place] [address] Limited Echocardiogram Report Patient Name: MAAME BRISCOE : 1940 Study Date: 12/10/2024 11:19:34 AM Gender: F Tech: ALEX Location: [id number] Ref Provider: ANTONELLA HARPER Height(Cm): 163 BSA: [...] AM CDT) 12/10/2024 7:17 AM CDT Narrative [facility] - 12/10/2024 10:20 AM CDT Vent Rate: 110 bpm RR Interval: 543 msec MA Interval: 0 msec QRS Duration: 77 msec QT Interval: 345 msec QTC Interval: 410 msec P-R-T Converse: 0 - -8 - 13 degrees IMPRESSION: ATRIAL FLUTTER NONSPECIFIC ST \T\ T-WAVE ABNORMALITY ABNORMAL RHYTHM ECG INTERPRETATION BASED ON A DEFAULT AGE OF 40 YEARS Electronically Signed By: Toan Kaur MD us Jesse Couch MD ECG ORDERABLES Final Result [facility] * eGFR (12/10/2024 3:34 AM CDT) [...] ORDERABLES Final Resul t Performing Organization Address City/[facility]/ZIP Co de Phone Number NISHANT DOMINGUEZ [address] Department [place] [address] * (ABNORMAL) Differential, auto (12/10/2024 3:34 AM CDT) Neutrophil abs 4.2 1.5 - 6.5 K/cumm Imm gran abs 0.0 0.0 - 0.1 K/cumm [facility] Lymphocyte abs 0.5(L) 0.8 - 3.3 K/cumm [facility] Monocyte abs 0.5 0.2 - 0.8 K/cumm [facility] Eosinophil abs 0.2 0.0 - 0.5 K/cumm [facility] Basophil abs 0.0 0.0 - 0.1 K/cumm [facility] Neutrophil pct 77.0 % [facility] Comment: Interpretive Data Percent cell count reference ranges are not reported, since discordance with absolute values may lead to misinterpretation of CBC data. Current Interpretive Data was last revised on 2017. Imm gran pct 0.6 % [facility] Comment: Interpretive Data Percent cell count reference ranges are not reported, since discordance with absolute values may lead to misinterpretation of CBC data. Current Interpretive Data was last revised on 2017. Lymphocyte pct 9.1 % [facility] Comment: Interpretive Data Percent cell count reference ranges are not reported, since discordance with absolute values may lead to misinterpretation of CBC data. Current Interpretive Data was last revised on 2017. Monocyte pct 8.4 % [facility] Comment: Interpretive Data Percent cell count reference ranges are not reported, since discordance with absolute values may lead to misinterpretation of CBC data. Current Interpretive Data was last revised on 2017. Eosinophil pct 4.3 % [facility] Comment: Interpretive Data Percent cell count reference ranges are not reported, since discordance with absolute values may lead to misinterpretation of CBC data. Current Interpretive Data was last revised on 2017. Basophil pct 0.6 % [facility] Comment: Interpretive Data Percent cell count reference ranges are not reported, since discordance with absolute values may lead to misinterpretation of CBC data. Current Interpretive Data was last revised on 2017. Blood 12/10/2024 3:34 AM CDT 12/10/2024 4:46 AM CDT us Jesse Couch MD LAB BLOOD ORDERABLES Final Resul t NISHANT [address] Department [place] [address] * (ABNORMAL) CBC with auto [...] Final Resul t Performing Organization Address [facility] Co de Phone Number NISHANT [address] [employer] [place], [place] [phone] * Magnesium (12/10/2024 3:34 AM CDT) Pathologist [facility] Magnesium 1.7 1.4 - 2.5 mg/dL Blood 12/10/2024 3:34 AM CDT 12/10/2024 4:48 AM CDT Jesse Couch MD LAB BLOOD ORDERABLES Final Resul t Performing Organization Address [facility] Co de Phone Number [facility] [address] Department of [employer] [place], [place] [phone] * (ABNORMAL) Basic metabolic panel (12/10/2024 3:34 AM CDT) Sodium 139 135 - 145 mmol/L Potassium, pl 3.7 3.3 - 4.9 mmol/L [facility] Chloride 104 97 - 110 mmol/L [facility] CH CO2 21(L) 22 - 32 mmol/L [facility] Anion gap 14 2 - 15 mmol/L [facility] BUN 14 6 - 25 mg/dL [facility] Creatinine 0.63 0.60 - 1.10 mg/dL [facility] Glucose 126 70 - 199 mg/dL [facility] Comment: Interpretive Data Fasting glucose >/= [...] 2022. Calcium 8.4(L) 8.5 - 10.3 mg/dL [facility] Blood 12/10/2024 3:34 AM CDT 12/10/2024 4:48 AM CDT Jesse Couch MD LAB BLOOD ORDERABLES Final Resul t Performing Organization Address [facility]/ZIP Co de Phone Number [facility] [address] Department [place] [address] * ECG 12 lead (12/10/2024 2:19 AM CDT) 12/10/2024 2:19 AM CDT Narrative [facility] - 12/10/2024 10:22 AM CDT Vent Rate: 134 bpm RR Interval: 445 msec MA Interval: 0 msec QRS Duration: 75 msec QT Interval: 301 msec QTC Interval: 380 msec P-R-T Converse: 0 - -10 - 45 degrees IMPRESSION: ATRIAL FIBRILLATION WITH RAPID VENTRICULAR RESPONSE ST DEPRESSION, CONSIDER SUBENDOCARDIAL INJURY ABNORMAL ECG Electronically Signed By: Toan Kaur MD Jesse Couch MD ECG ORDERABLES Final Result Performing Organization Address [facility]/ZIP Co de Phone Number [facility] * POCT glucose (12/09/2024 5:49 PM CDT) Glucose, POC 89 70 - 199 mg/dL POC Performer [id number] NISHANT DOMINGUEZ Blood 12/09/2024 5:49 PM CDT 12/09/2024 5:49 PM CDT Jesse Couch MD LAB POCT ORDERABLES - DEVICE Fin al Result NISHANT DOMINGUEZ [address] Department [place] [address] * XR Chest 1 View (12/09/2024 3:09 [...] ORDERABLES Final Resul t Performing Organization Address [facility] de Phone Number NISHANT [address] [place] [address] * Protime-INR (12/09/2024 3:09 PM CDT) PT 12.0 9.7 - 13.0 sec INR 1.11 0.90 - 1.20 NIHSANT DOMINGUEZ Comment: Interpretive data Oral anticoagulant therapeutic [...] Final Resul t Performing Organization Address [facility] de Phone Number NISHANT DOMINGUEZ [address] [address] [facility] [place] [address] * PERC MALINA CLOSURE W/IMPLANT (WATCHMAN) [id number] (12/09/2024 10:24 AM CDT) Anatomical Region Laterality [...] Amplatzer Amulet left atrial appendage occluder (CPT 24788) Intracardiac echocardiogram (3D/4D ICE) Deployment of two Perclose suture mediated closure devices at 2 separate right common femoral venous access sites SEDATION: General anesthesia - by anesthesiology team ACCESS SITES: Right common femoral vein PROCEDURE: After obtaining informed consent, patient was brought to the cathode builder and prepped and draped in the usual sterile manner. Time-out and immediate reassessment of the patient was performed. Patient was placed under general anesthesia by the anesthesiologist team. Two right common femoral venous accesses were taken under ultrasound guidance with micropuncture needle. Preclose suture mediated vascular closure [place]. [place] [id number] units of unfractionated heparin for procedural anticoagulation at different intervals during the procedure, to maintain ACT between 250-350 seconds. ACT was monitored throughout the procedure at regular intervals. Long 12 [place] sheath was advanced over 035 wire from the inferior access site in the right common femoral vein. 3D/4D ICE catheter was advanced in to right atrium. Dover sheath was advanced over 035 wire from the superior access site in the right common femoral vein. Atrial septal puncture was performed using Dover transseptal needle under intracardiac echo and fluoroscopic guidance. The sheath was advanced to the left atrium towards the pulmonary vein over the pre shaped wire. The sheath was taken out and it was exchanged with a 14 [place] amulet delivery sheath. The sheath was advanced into the left atrium, the atrial septum was dilated with the sheath, and then sheath was taken out over the wire and positioned in the right atrium/IVC junction. Next, ICE catheter was advanced into the left atrial cavity. Left atrial appendage measurement was performed. After this, the 14 [place] sheath was reintroduced over Dover wire. A 5 [place] pigtail catheter was advanced over the wire and the pre shaped wire was taken out. Left atrial pressure was measured at 17 mmHg. A 5 [place] pigtail catheter was later positioned in the [...] was used to complete this document, therefore, tool smith variances may occur. Jesse Couch MD, [facility] 12/09/24 Jesse Couch MD CV ELECTROPHYSIOLOGY PROCS Final Result * (ABNORMAL) POC Activated Clotting Time, High Range (12/09/2024 10:12 AM CDT) ACT 304(H) 87 - 138 sec POC [facility]former [id number] [facility] Blood 12/09/2024 10:1 2 AM CDT 12/09/2024 10:12 AM CDT Jesse Couch MD LAB BLOOD ORDERABLES Final Resul t Performing Organization Address [facility] Co de Phone Number FROYLANSARAH DOMINGUEZ [address] [place] [address] * (ABNORMAL) POC Activated Clotting Time, High Range (12/09/2024 9:24 AM CDT) ACT 282(H) 87 - 138 sec POC Performer [id number] [facility] Blood 12/09/2024 9:24 AM CDT 12/09/2024 9:24 AM CDT Jesse Couch MD LAB BLOOD ORDERABLES Final Resul t Performing Organization Address [facility] Co de Phone Number NISHANT DOMINGUEZ [address] [place] [address] * (ABNORMAL) POC Activated Clotting Time, High Range (12/09/2024 9:10 AM CDT) ACT 230(H) 87 - 138 sec POC Performer [id number] NISHANT DOMINGUEZ Blood 12/09/2024 9:10 AM CDT 12/09/2024 9:10 AM CDT us Jesse Couch MD LAB BLOOD ORDERABLES Final Resul t NISHANT DOMINGUEZ [address] Department [place] [address] * MA AN ELECTIVE ENDOTRACHEAL AIRWAY (12/09/2024 8:31 AM [...] LAB BLOOD ORDERABLES Final Resul t NISHANT [address] [place] [address] * ECG 12 lead (11/30/2024 10:42 AM CDT) 11/30/2024 10:4 2 AM CDT Narrative [facility] - 11/30/2024 3:21 PM CDT Vent Rate: 56 bpm RR Interval: 1069 msec MA Interval: 181 msec QRS Duration: 81 msec QT Interval: 441 msec QTC Interval: 432 msec P-R-T Converse: 54 - -8 - 20 degrees IMPRESSION: SINUS BRADYCARDIA NONSPECIFIC T-WAVE ABNORMALITY BORDERLINE ECG Electronically Signed By: Wilfredo Brown MD, [facility] Jesse Couch MD ECG ORDERABLES Final Result Performing Organization Address [facility] Co de Phone Number [facility] * eGFR (11/30/2024 10:21 AM CDT) eGFR [...] LAB BLOOD ORDERABLES Final Resul t NISHANT [address] Department [place] [address] * Differential, auto (11/30/2024 10:21 AM CDT) Neutrophil abs 3.3 1.5 - 6.5 K/cumm Imm gran abs 0.0 0.0 - 0.1 K/cumm [facility] Lymphocyte abs 1.0 0.8 - 3.3 K/cumm [facility] Monocyte abs 0.6 0.2 - 0.8 K/cumm [facility] Eosinophil abs 0.4 0.0 - 0.5 K/cumm [facility] Basophil abs 0.1 0.0 - 0.1 K/cumm [facility] Neutrophil pct 62.3 % [facility] Comment: Interpretive Data Percent cell count reference ranges are not reported, since discordance with absolute values may lead to misinterpretation of CBC data. Current Interpretive Data was last revised on 2017. Imm gran pct 0.2 % [facility] Comment: Interpretive Data Percent cell count reference ranges are not reported, since discordance with absolute values may lead to misinterpretation of CBC data. Current Interpretive Data was last revised on 2017. Lymphocyte pct 19.4 % [facility] Comment: Interpretive Data Percent cell count reference ranges are not reported, since discordance with absolute values may lead to misinterpretation of CBC data. Current Interpretive Data was last revised on 2017. Monocyte pct 10.5 % [facility] Comment: Interpretive Data Percent cell count reference ranges are not reported, since discordance with absolute values may lead to misinterpretation of CBC data. Current Interpretive Data was last revised on 2017. Eosinophil pct 6.7 % [facility] Comment: Interpretive Data Percent cell count reference ranges are not reported, since discordance with absolute values may lead to misinterpretation of CBC data. Current Interpretive Data was last revised on 2017. Basophil pct 0.9 % [facility] Comment: Interpretive Data Percent cell count reference ranges are not reported, since discordance with absolute values may lead to misinterpretation of CBC data. Current Interpretive Data was last revised on 2017. Blood 11/30/2024 10:2 1 AM CDT 11/30/2024 10:29 AM CDT Jesse Couch MD LAB BLOOD ORDERABLES Final Resul t Performing Organization Address [facility]/ZIP Co de Phone Number NISHANT [address] [place] [address] * (ABNORMAL) CBC with auto differential (11/30/2024 10:21 AM CDT) WBC 5.4 3.8 - 9.9 K/cumm Hgb 12.5 11.9 - 15.5 g/dL [facility] CH Hct 37.5 35.6 - 45.5 % [facility] Plt 236 150 - 400 K[facility]cumm [facility] MPV 9.1 9.1 - 12.3 fL [facility] RBC 3.74(L) 3.90 - 5.20 M/cumm C[facility] CH MCV 100.3(H) 81.3 - 96.4 fL [facility] CH MCH 33.4(H) 27.1 - 33.3 pg [facility] CH MCHC 33.3 32.3 - 35.7 g/dL [facility] CH RDW CV 13.2 11.1 - 14.9 % [facility] CH RDW SD 48.7(H) 35.7 - 48.1 fL [facility] NRBC abs 0.00 0.00 - 0.01 K/cumm CERNER Blood 11/30/2024 10:2 1 AM CDT 11/30/2024 10:29 AM CDT Jesse Couch MD LAB BLOOD ORDERABLES Final Resul t Performing Organization Address [facility]/ZIP Co de Phone Number NISHANT [address] Department of [place], [place] [id number] * aPTT (11/30/2024 10:21 AM CDT) aPTT [...] ORDERABLES Final Resul t Performing Organization Address [facility] de Phone Number [facility] [address] [facility] [place] [address] * Protime-INR (11/30/2024 10:21 AM CDT) PT [...] ORDERABLES Final Resul t Performing Organization Address [facility] de Phone Number [facility] [address] [facility] [place] [address] * Type and screen (11/30/2024 10:21 AM CDT) ABO Rh A Positive [place], indirect Negative NISHANT Blood 11/30/2024 10:2 1 AM CDT 11/30/2024 10:30 AM CDT Narrative NISHANT - 11/30/2024 11:25 AM CDT Has the patient had Daratumumab or Isatuximab in the past 6 months?->Unknown Jesse Couch MD LAB BLOOD BANK TEST ORDERABLES F inal Result CERNER [address] [place] [address] * Comprehensive metabolic panel (11/30/2024 10:21 AM [...] [place]LO[place] [address] [address] [place] [address] * CT Heart Morphology W Contrast (11/12/2024 11:47 AM LAUNDRY HELPER) Anatomical Region Laterality Modality Chest N/A Computed Tomogra phy 11/12/2024 1:19 PM LAUNDRY HELPER Impressions 11/14/2024 6:53 AM LAUNDRY HELPER 1. Left atrial appendage measurements for placement [...] Christie Long M.D. Narrative 11/14/2024 6:[address] heart morphology with IV contrast. HISTORY: [...] by: Christie Long M.D. Jesse Couch MD [facility] CT PROCEDURES Final Result from Last 3 Months Insurance MEDICARE [employer] [place] [address] MEDICARE [facility] MEDICARE Advance Directives For more information, please contact: [phone] Documents on File Type Date Recorded Patient Community Mental Health Social Worker Expl anation ADVANCE DIRECTIVE 12/01/2018 4:58 AM POWER OF REGULATOR ASSEMBLER-MEDICAL * Full Code (Latest Code Status on File) Date Activated Date Inactivated Comments 11/03/2023 12:28 PM 11/07/2023 5:32 PM * Full Code Date Activated Date Inactivated Comments 11/25/2018 2:08 PM 11/28/2018 7:12 PM Care Teams Test Engineering Technician Relationship Specialty Start Date End Date Theodore Farrar MD [address] [place] [address] PCP - General Family Practice 11/06/24 Bobo Lim PA [address] [facility] [address] [place] [address] Physician Waste Water Treatment Plant Operator 12/02/23 Andrew Vegas MD [address] [place] [address] [facility] [address] [address] Surgeon Orthopedic Surgery 11/06/23
--- OUTSIDE RECORDS SUMMARY | 2024-12-27 17:47 | XMS_ITS | Encounter Summary ---
Author Organization [facility] Healthcare Address [address] [place] [address] Care Team Providers Care Wellness Ambassador Name Role Phone Bobo Lim Unavailable [phone] Andrew Vegas MD Unavailable [phone] Theodore Farrar MD Primary Care Provider [phone] Encounter Details Date Type Department Care Team (Late st Contact Info) Description 11/15/2024 Results Follow-Up [facility] Medical Group Cardiology [address] [facility] [address] [place] [id number] Jesse Couch MD [address] [place] [address] [address] [place] [address] Social History Tobacco Use Types Packs/Day Years Used Date Smoking Tobacco: Never Smokeless Tobacco: Never Alcohol Use Standard Drinks/Week Comments No 0 (1 standard drink = 0.6 oz pur e alcohol) [facility] Utilities Answer Date Recorded In the past 12 months has [employer], gas, oil, or water company threatened to [...] often do you attend chur ch or anglican services? 1 to 4 times per year 11/04/2023 Do you belong to any clubs o r organizations such as shinto groups, unions, fraternal or athletic groups, or [...] place to sleep or slept in a jail (including now)? No 11/04/2023 Personal Safety Answer Date Recorded Have you ever been in or are you currently in a harmful physical or emotional relationship or is someone making you feel afraid or unsafe? Denies 11/03/2023 Comments No Sex and Gender Information Value Date Recorded Sex Assigned at Not on file Legal Sex Female 10:51 AM WRINKLE CHASER Gender Identity Female 03/13/2020 12:13 PM CDT Sexual Orientation Not on file documented as of this encounter Plan of Treatment Not on file documented as of this encounter Visit Diagnoses Not on filedocumented in this encounter Care Teams Wellness Ambassador Relationship Specialty Start Date End Date Theodore Farrar MD [address] [place] [address] PCP - General Family Practice 11/06/24 Bobo Lim PA [address] [facility] [address] [facility] [address] [place] [address] Physician Experimental Worker 12/02/23 Andrew Vegas MD [address] [place] [address] [address] [place] [address] Surgeon Orthopedic Surgery 11/06/23 documented as of this encounter
--- OUTSIDE RECORDS SUMMARY | 2024-12-27 17:47 | XMS_ITS ---
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
[2024-12-27] MEDS: dilTIAZem 100 MG/100 ML 100 MG/100 ML BAG IV CONT (18:54)
--- NOTE | 2024-12-27 18:55 | ED.ARRPALP ---
HPI - Arrhythmia/Palpitations General Chief Complaint: Arrhythmia/Palpitations Stated Complaint: Dizziness, I think I'm in Afib Time Seen by Provider: 12/27/24 15:23 Source: patient and family Mode of arrival: wheelchair Limitations: no limitations History of Present Illness HPI narrative: 84-year-old with a history of AFib on Eliquis and sotalol here with the complaints intermittent palpitations for last 2 days due to she is having AFib again. Patient states that she had procedure done at [facility] 1 month ago . She takes her meds as prescribed. She endorses Dr. Chau as her charhouse worker . complaint: rapid heart beat Onset (ago): day(s) (2) Duration: constant Severity: mild Arrhythmia history: atrial fibrillation Associated symptoms: denies other symptoms Related Data Home Medications ?Medication ?Instructions ?Recorded ?Confirmed ?Last Taken ?Type furosemide 20 mg tablet 20 mg PO DAILY 10/09/24 10/09/24 10/09/24 History Allergies Allergy/AdvReac Type Severity Reaction Status Date / Time iohexol (From contrast - CT, Allergy Itching Verified 12/27/24 14:50 X-RAY) Review of Systems Review of Systems: All systems reviewed & are unremarkable except as noted in HPI and below Constitutional: Constitutional: Reports no additional constitutional complaints Eyes: Eyes: Reports no additional eye complaints ENT: Reports system reviewed and no additional complaints, except as documented Cardiovascular: Cardiovascular: Reports as per HPI Respiratory: Respiratory: Reports no additional respiratory complaints Gastrointestinal: Gastrointestinal: Reports no additional gastrointestinal complaints Musculoskeletal: Musculoskeletal: Reports no additional musculoskeletal complaints Integumentary/Breasts: Skin/Breast: Reports system reviewed and no additional complaints, except as docu [facility] Past Medical History Medical History (Updated 12/27/24 @ 19:08 by Nico Acevedo MD) Parkinsons disease History of cardioversion Chronic anticoagulation Arthritis Paroxysmal atrial fibrillation history of cardioversion in 12/2023 Pulmonary embolism (11/2023) Constipation Wears glasses Lumbar radiculopathy Vitamin D deficiency Low vitamin D level Hypertension Vitamin D deficiency Hypothyroidism 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 Seizure disorder Surgical History Surgical History Status post total hip replacement, 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 Code status: Full code. Smoking status: Never smoker Second hand tobacco smoke exposure: No Alcohol intake: never Substance use: never Substance use type: does not use Do You Feel Safe in your Home?: Yes Lack of Transportation: No Lack of Food: Never True Current Housing: I Have Housing Concerned About Future Housing: No Difficulty Paying Gas/Electric Bills: No Difficulty Paying for Meds: No Currently Unemployed: No Education: Trade/Vocational Certificate Difficulty w/ Childcare or Family Care: No Living arrangements: assisted living Additional living arrangements comments: . Occupation/Education: retired Spiritual care concerns: No Exam Narrative: GENERAL: Well-appearing, well-nourished, and in no acute distress. HEAD: Normocephalic, atraumatic. EYES: PERRLA and EOMI. ENT: Nares clear, no rhinorrhea or epistaxis. Mucous membranes moist. NECK: Supple. CHEST: Clear to auscultation. No respiratory distress. HEART: Tachycardic and irregular ABDOMEN: Soft, nontender, nondistended, normal active bowel sounds. EXTREMITIES: Normal range of motion. No edema. SKIN: Warm, dry, no rash. NEURO: No focal deficits. Alert and oriented x3. PSYCH: Normal mood and affect. Course Course Emergency Course: Patient upon arrival had a heart rate of 113-114 I did give her 10 mg of IV Cardizem IV which brought it down to 101 however periodically she goes up to 106. I discussed with Dr. Ledesma recommended admission and advised to give sotalol 80 mg in the morning and 40 mg in the evening. Okay with the Dilt drip . Discussed with Lora will accept the pt Vital Signs Vital signs: Vital Signs Temperature 36.6 C 12/27/24 15:07 Pulse Rate 113 H 12/27/24 15:07 Respiratory Rate 18 12/27/24 15:07 Blood Pressure 138/89 12/27/24 15:07 Pulse Oximetry 100 12/27/24 15:07 Oxygen Delivery Room Air 12/27/24 15:07 Temperature 36.6 C 12/27/24 15:07 Pulse Rate 109 H 12/27/24 18:54 Respiratory Rate 18 12/27/24 18:46 Blood Pressure 118/71 12/27/24 18:54 Pulse Oximetry 98 12/27/24 18:46 Oxygen Delivery Room Air 12/27/24 15:51 MDM - Arrhythmia/Palpitations Differential Diagnosis Differential diagnosis: Likely palpitations, artial fibrillation and artial flutter Medical Records Attestation: I reviewed the patient's medical records. Lab Data Attestation: I reviewed the patient's lab results. 12/27/24 15:50 12/27/24 15:50 Labs: Lab Results 12/27/24 12/27/24 Range/Units 15:50 18:43 WBC 4.6 (4.5-10.0) K/mm3 RBC 3.65 L (4.2-5.4) M/mm3 Hgb 11.9 L (12.0-15.0) g/dL Hct 36.9 L (37.0-47.0) % MCV 101.1 H (80-100) fl MCH 32.6 (26-34) pg MCHC 32.2 (32-36) g/dl RDW 13.5 (11.5-14.5) % Plt Count 244 (150-375) k/mm3 MPV 9.1 (7.4-10.4) fl Immature Gran % (Auto) 0.2 (0-0.5) % Neut % (Auto) 46.3 (45.5-73.1) % Lymph % (Auto) 31.2 (18.3-44.2) % [place] % (Auto) 11.6 H (2.6-8.5) % Eos % (Auto) 9.4 H (0-4.4) % Baso % (Auto) 1.3 H (0.2-1.2) % Lymph # (Auto) 1.43 (0.9-3.2) K/mm3 [place] # (Auto) 0.5 (0.1-0.6) K/mm3 Eos # (Auto) 0.4 H (0-0.3) K/mm3 Baso # (Auto) 0.1 (0.0-0.1) K/mm3 Abs Immat Gran (auto) 0.01 (0.00-0.031) K/mm3 Absolute Neuts (auto) 2.1 (1.3-6.7) K/mm3 Absolute Nucleated RBC 0.000 (0.0-0.012) K/mm3 Nucleated RBC % 0.0 (0.0-0.2) % PT 14.4 (11.1-14.7) Seconds INR 1.1 APTT 25.4 (22.3-36.8) Seconds Sodium 139 (137-145) mmol/L Potassium 4.3 (3.4-5.0) mmol/L Chloride 104 (98-107) mmol/L Carbon Dioxide 26 (22-30) mmol/L Anion Gap 9 (4-12) mmol/L BUN 33 H (7-17) mg/dL Creatinine 0.92 (0.7-1.0) mg/dL Estim Creat Clear Calc 33 ml/min Estimated GFR 58 L (59 - ) Glucose 86 (65-110) mg/dL Calcium 9.3 (8.4-10.2) mg/dL Total Bilirubin 0.2 (0.2-1.3) mg/dL AST 31 (14-36) U/L ALT 19 (6-35) U/L Alkaline Phosphatase 77 (38-126) U/L Troponin I < 0.012 Pending (0.000-0.034) ng/mL Total Protein 8.0 (6.3-8.2) g/dL Albumin 4.3 (3.5-5.1) g/dL Lipase 119 (23-300) U/L Imaging Data Radiologist's impression: ITS Impressions Chest X-Ray 12/27/24 15:45 IMPRESSION: No focal infiltrate or effusion. ECG Data EKG #1: ECG completion date: 12/27/24 ECG completion time: 15:26 EKG Interpretation: tachycardia (115), atrial fibrillation, non-specific ST changes and no ST changes Discharge Plan Discharge Clinical Impression: Atrial fibrillation with RVR Patient Disposition: Still a Patient Condition: Stable Patient Language: Romanian Prescriptions: No Action furosemide 20 mg tablet 20 mg PO DAILY docusate sodium 100 mg tablet 100 - 200 mg PO QHS Qty: 90 1RF fluticasone propionate [Flonase Allergy Relief] 50 mcg/actuation spray,suspension 2 spray intranasal DAILY Qty: 16 3RF Rx Instructions: administer into each nostril Eliquis 5 mg tablet 5 mg PO BID Qty: 60 5RF phenobarbital 30 mg tablet 30 mg PO TID Qty: 90 5RF phenytoin sodium extended [Dilantin Extended] 100 mg capsule 100 mg PO TID Qty: 90 5RF Patient Comments: PER PT CAN NOT TAKE GENERIC WILL BRING IN HOME MEDICATION acetaminophen [Tylenol Extra Strength] 500 mg tablet 500 mg PO Q6H PRN (Reason: pain) Qty: 120 5RF carbidopa-levodopa 25-100 mg tablet See Rx Instructions .ROUTE .COMPLEX Qty: 90 1RF Rx Instructions: Take 1.5 tabs 3x daily. 1 pill at bedtime cholecalciferol (vitamin D3) 25 mcg (1,000 unit) capsule 25 mcg PO DAILY Qty: 90 1RF sotalol 80 mg tablet 40 mg PO Q12HR Qty: 90 1RF mecobalamin (vitamin B12) 1,000 mcg tablet,disintegrating 1,000 mcg PO EVERY OTHER DAY Qty: 90 1RF Rx Instructions: Friday, Friday, Friday levothyroxine 75 mcg tablet 75 mcg PO DAILY Qty: 90 1RF calcium carbonate-vitamin D3 600 mg-10 mcg (400 unit) tablet 1 tablet PO BID Qty: 180 0RF Follow-up/Referrals: Theodore Farrar MD [Primary Care Provider] - Time of Disposition: 18:56
[2024-12-27 19:22] LABS: Troponin I < 0.012 ng/mL (0.000-0.034)
--- NOTE | 2024-12-27 20:00 | ADMGEN ---
This patient, Maame Frias, was admitted to IMU Room 206-02. Patient/family oriented to hospital policies and general routines including ID bracelet, bed and alarms, visiting hours, pain management, procedures, bathroom and other care routines, personal items, smoking policy, room service/diet, and visiting hours. Information on how to activate the Rapid Response Team has been discussed. Patient/Family are encouraged to report perceived risks to care and to ask questions if they do not understand what they are told or what they should do.
--- NOTE | 2024-12-27 20:36 | PM.IMHP ---
H&P: HPI History of Present Illness Date/Time: 12/27/24 20:35 Chief Complaint: Dizziness and high blood pressure. Narrative: This is an 84-year-old female with paroxysmal atrial fibrillation, pulmonary embolism, hypertension, hypothyroidism, Parkinson's, and seizure disorder who presented to the emergency department for evaluation of dizziness and high blood pressure. She had an Amplatzer left atrial appendage occluder placed at [facility] within the last month and had atrial fibrillation postoperatively but none since that time to her knowledge. Yesterday she reports feeling dizzy and when asked to further clarify she states it felt as though the room was moving and she was off-balance. She then took her vital signs and noted that her blood pressure was high in that her heart rate was high and irregular. Due to ongoing symptoms she came in for evaluation. She does not have any sensations of racing heart or palpitations and denies shortness of breath as well. She also denies visual changes, facial droop, difficulties speaking and swallowing, focal weakness, and paresthesias. She has not had any recent falls. In the ED: She was in rapid atrial fibrillation on arrival with stable blood pressures. Labs were significant for hemoglobin of 11.9, MCV 101.1, BUN 33, creatinine 58, troponin less than 0.012. Chest x-ray showed no focal infiltrate or effusion. EKG showed rapid atrial fibrillation without any significant changes compared to prior tracings. She received a diltiazem bolus and was started on a diltiazem drip with some improvement her rate. On car distribution systems serviceperson for her group recommended increasing her morning sotalol dose to 80 mg and keeping 40 mg dose at nighttime however the patient is reluctant to make this change as when she was on higher doses of sotalol, she was very sleepy. Review of Systems Review of Systems: 12 systems were reviewed and are negative except for as per HPI. [facility] Past Medical History Medical History (Updated 12/27/24 @ 22:31 by Pearl Bergman PA-C) Parkinsons disease Chronic anticoagulation Arthritis Paroxysmal atrial fibrillation history of cardioversion in 12/2023 Pulmonary embolism (11/2023) Constipation Wears glasses Lumbar radiculopathy Vitamin D deficiency Low vitamin D level Hypertension Vitamin D deficiency Hypothyroidism Cerebral palsy Patient denies this diagnosis but states she has had right-sided weakness and spasticity since . 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 Code status: Full code. Smoking status: Never smoker Second hand tobacco smoke exposure: No Alcohol intake: never Substance use: never Substance use type: does not use Do You Feel Safe in your Home?: Yes Lack of Transportation: No Lack of Food: Never True Current Housing: I Have Housing Concerned About Future Housing: No Difficulty Paying Gas/Electric Bills: No Difficulty Paying for Meds: No Currently Unemployed: No Education: Trade/Vocational Certificate Difficulty w/ Childcare or Family Care: Decline to Answer Living arrangements: assisted living Additional living arrangements comments: . Occupation/Education: retired Spiritual care concerns: No Meds Home Medications and Allergies Home Medications ?Medication ?Instructions ?Recorded ?Confirmed ?Type docusate sodium 100 mg tablet 100 - 200 mg (1 - 2 x 100 mg) PO 04/18/22 12/27/24 Rx QHS #90 tabs apixaban 5 mg tablet (Eliquis) 5 mg PO BID #60 tabs 07/19/24 12/27/24 Rx phenobarbital 30 mg tablet 30 mg PO TID #90 tabs 11/04/24 12/27/24 Rx Dilantin Extended 100 mg capsule 100 mg PO TID #90 caps 11/23/24 12/27/24 Rx (phenytoin sodium extended) acetaminophen 500 mg tablet 500 mg PO Q6H PRN pain #120 tabs 11/23/24 12/27/24 Rx (Tylenol Extra Strength) carbidopa 25 mg-levodopa 100 mg See Rx Instructions .Route 11/23/24 12/27/24 Rx tablet .COMPLEX #90 tabs levothyroxine 75 mcg tablet 75 mcg PO DAILY #90 tabs 11/23/24 12/27/24 Rx mecobalamin (vitamin B12) 1,000 1,000 mcg PO EVERY OTHER DAY #90 11/23/24 12/27/24 Rx mcg disintegrating tabs tablet,sublingual sotalol 80 mg tablet 40 mg (1/2 x 80 mg) PO Q12HR #90 11/23/24 12/27/24 Rx tabs calcium 600 mg (as 1 tablet PO BID #180 tabs 11/26/24 12/27/24 Rx carbonate)-vitamin D3 10 mcg (400 unit) tablet aspirin 81 mg chewable tablet 1 tablet PO DAILY 12/27/24 12/27/24 History cholecalciferol (vitamin D3) 25 25 mcg PO .MWF 12/27/24 12/27/24 History mcg (1,000 unit) capsule clopidogrel 75 mg tablet 75 mg PO DAILY 12/27/24 12/27/24 History Allergies Allergy/AdvReac Type Severity Reaction Status Date / Time iohexol (From contrast - CT, Allergy Itching Verified 12/27/24 14:50 X-RAY) Vital Signs Vital Signs - 24 hr 12/27/24 15:07 12/27/24 15:30 12/27/24 15:32 Temperature 97.8 F Pulse Rate 113 H 119 H 110 H Respiratory Rate 18 16 16 Blood Pressure 138/89 142/99 H 114/81 Pulse Oximetry 100 98 98 Oxygen Delivery Room Air 12/27/24 15:46 12/27/24 15:51 12/27/24 15:54 Temperature Pulse Rate 112 H 118 H 118 H Respiratory Rate 25 H 18 Blood Pressure 133/72 118/79 Pulse Oximetry 98 99 Oxygen Delivery Room Air 12/27/24 16:01 12/27/24 16:16 12/27/24 16:31 Temperature Pulse Rate 111 H 111 H 120 H Respiratory Rate 15 19 15 Blood Pressure 119/79 132/77 126/68 Pulse Oximetry 98 99 Oxygen Delivery 12/27/24 16:46 12/27/24 17:16 12/27/24 18:01 Temperature Pulse Rate 118 H 116 H 112 H Respiratory Rate 19 30 H 19 Blood Pressure 122/83 118/73 121/82 Pulse Oximetry 97 98 98 Oxygen Delivery 12/27/24 18:46 12/27/24 18:54 12/27/24 19:15 Temperature Pulse Rate 106 H 109 H 102 H Respiratory Rate 18 15 Blood Pressure 118/71 118/71 118/71 Pulse Oximetry 98 94 Oxygen Delivery Exam Narrative: General: Well-developed elderly female supine in bed in no distress. Weight: 60.7 kg. BMI: 23.0. HEENT: Pupils reactive. Extraocular motions intact. Moist mucous membranes. Neck: Supple. Respiratory: Lungs are clear to auscultation bilaterally. Cardiovascular: Irregularly irregular rate and rhythm. Gastrointestinal: Abdomen is soft, nontender, and nondistended with positive bowel sounds. Skin: Warm and dry. No rash or lesions on limited exam. Extremities: No cyanosis, clubbing, or significant edema. Radial and pedal pulses intact. Neurological: Alert. Cranial nerves 2-12 are grossly intact. Some weakness on the right side which is chronic. Psychiatric: Pleasant and cooperative with normal mood and affect. H&P: Results Labs Labs: Short CBC 12/27/24 Range/Units 15:50 WBC 4.6 (4.5-10.0) K/mm3 Hgb 11.9 L (12.0-15.0) g/dL Hct 36.9 L (37.0-47.0) % Plt Count 244 (150-375) k/mm3 BMP 12/27/24 15:50 Sodium 139 Potassium 4.3 Chloride 104 Carbon Dioxide 26 BUN 33 H Creatinine 0.92 Glucose 86 Calcium 9.3 Cardiac Enzymes 12/27/24 12/27/24 Range/Units 15:50 18:43 Troponin I < 0.012 < 0.012 (0.000-0.034) ng/mL Liver Function 12/27/24 Range/Units 15:50 Total Bilirubin 0.2 (0.2-1.3) mg/dL AST 31 (14-36) U/L ALT 19 (6-35) U/L Alkaline Phosphatase 77 (38-126) U/L Albumin 4.3 (3.5-5.1) g/dL Impressions Chest X-Ray 12/27/24 15:45 IMPRESSION: No focal infiltrate or effusion. Assessment and Plan Assessment and plan (1) Atrial fibrillation with rapid ventricular response: Code(s): I48.91 - Unspecified atrial fibrillation Status: Acute (2) Hypertension: Qualifiers: Hypertension type: essential hypertension Qualified Code(s): I10 - Essential (primary) hypertension Code(s): I10 - Essential (primary) hypertension Status: Chronic (3) Hypothyroidism: Qualifiers: Hypothyroidism type: unspecified Qualified Code(s): E03.9 - Hypothyroidism, unspecified Code(s): E03.9 - Hypothyroidism, unspecified Status: Chronic Plan The patient presented to the emergency department for evaluation of dizziness and high blood pressures as detailed in HPI. Labs, imaging, EKG, and all reports were personally reviewed. She is in rapid atrial fibrillation and has been started on a diltiazem drip. ED physician consulted with her distribution systems serviceperson group and they recommend increasing her a.m. sotalol dose to 80 mg in the morning and 40 mg at nighttime however she is reluctant and would prefer to speak with the distribution systems serviceperson about it in the morning as it makes her very sleepy. Brain CT ordered to evaluate vertigo however I suspect her feelings of being off balance are related to the rapid atrial fibrillation. Blood pressures are improving and will be monitored. Her home medications will be reviewed and resumed as appropriate. Findings and treatment plan were discussed with the patient. Questions were solicited and answered to satisfaction. The patient's medical management will be taken over by the hospitalist team in a.m. Quality VTE Prophylaxis VTE prophylaxis: mechanical ordered If No VTE Prophylaxis Answer both mechanical and pharmacologic: Reason no pharmacologic proph: medical contraindication (on dual antiplatelet therapy) Hospitalist MIPS Advance Care Plan I have confirmed that the patient's Advanced Care Plan is present, code status is documented, or surrogate decision maker is listed in patient medical record.: Yes Medication Reconciliation The patient is not eligible for med reconciliation; the patient is in a emergent medical situation where delaying treatment would jeopardize the patients health.: Yes
[2024-12-27 22:01] LABS: Troponin I < 0.012 ng/mL (0.000-0.034)
[2024-12-27] MEDS: SOTALOL HCL 40 MG TABLET PO (22:34)
[2024-12-27] MEDS: PHENobarbitaL (*CRX) 30 MG TABLET PO (22:34)
[2024-12-28] VITALS (26 sets, daily range): BP systolic 107–132; BP diastolic 47–88; PULSE 78–115; RESP 12–20; TEMP 36.3–36.7; O2SAT 94–100
[2024-12-28 04:44] LABS: Anion Gap 7 mmol/L (4-12); Blood Urea Nitrogen 23 mg/dL (7-17); Calcium 8.9 mg/dL (8.4-10.2); Carbon Dioxide 26 mmol/L (22-30); Chloride 107 mmol/L (98-107); Estimated CRCL calculation 44 ml/min; Estimated Glomerular Filt Rate > 60; Glucose 100 mg/dL (65-110); Sodium 140 mmol/L (137-145)
[2024-12-28 05:05] LABS: Phenytoin Dilantin 4 ug/mL (10-20)
[2024-12-28] MEDS: PHENobarbitaL (*CRX) 30 MG TABLET PO ×3 (05:46→20:38)
[2024-12-28] MEDS: LEVOTHYROXINE SODIUM 75 MCG TABLET PO (05:47)
[2024-12-28] MEDS: CLOPIDOGREL BISULFATE 75 MG TABLET PO (09:12)
[2024-12-28] MEDS: ASPIRIN 81 MG CHEWABLE TABLET PO (09:12)
[2024-12-28] MEDS: CALCIUM/VITAMIN D 500 MG/5 MCG (200 I.U.) TABLET PO ×2 (09:12→16:22)
[2024-12-28] MEDS: SOTALOL HCL 40 MG TABLET PO ×2 (09:12→20:37)
[2024-12-28] MEDS: CARBIDOPA/LEVODOPA 25/100 MG TABLET 1 TABLET BY MOUTH ×3 (09:13→20:38)
--- NOTE | 2024-12-28 09:37 | PM.IMPN ---
Progress Note: A&P Assessment and Plan (1) Atrial fibrillation with rapid ventricular response: Code(s): I48.91 - Unspecified atrial fibrillation Status: Acute (2) Hypertension: Qualifiers: Hypertension type: essential hypertension Qualified Code(s): I10 - Essential (primary) hypertension Code(s): I10 - Essential (primary) hypertension Status: Chronic (3) Hypothyroidism: Qualifiers: Hypothyroidism type: unspecified Qualified Code(s): E03.9 - Hypothyroidism, unspecified Code(s): E03.9 - Hypothyroidism, unspecified Status: Chronic Plan A.Fib Possible cardioversion tomorrow Order TSH S/P Amplatzer left atrial appendage occluder placed at [facility] within the last month Denies alcoholism, drug abuse, excessive caffeine intake No Hx of CHF On diltiazem tarik TRIANA2Vasc 4(Age,HTN,Female) On aspirin, clopidogrel and Eliquis 5 mg p.o. b.i.d.(as per patient not taking Eliquis after the Watchman device) Order HbA1c and Lipid Panel Reviewed echo performed on 11/29/2023: Left ventricular systolic function is normal, estimated at >70%. Hypothyroidism Order TSH Continue levothyroxine 75 mcg Subjective Date/time seen: 12/28/24 09:37 Interval history: Patient lives in assisted living and follows up with Dr. Chua the residential real estate assistant. Patient has a long history of AFib for which she was received cardioversion November and January 2024. Patient also had a hip replacement last year and also has a past medical history of Parkinson's. Patient acknowledges drinking 1 cup of coffee everyday. Last year Dr. Grady changed medication from metoprolol to sotalol 80 mg in the morning and 40 mg in the night but patient was unable to tolerate the does so currently she is on sotalol 40 mg b.i.d.. Patient recently received Amplatzer with at [facility]. Patient was previously taking Eliquis which has been discontinued and advised the to take aspirin and Plavix after the procedure. Cardiology evaluated the patient and possible cardioversion tomorrow Review of Systems Review of Systems: 12 systems were reviewed and are negative except for as per HPI. Exam Narrative: General: Well-developed elderly female supine in bed in no distress. Weight: 60.7 kg. BMI: 23.0. HEENT: Pupils reactive. Extraocular motions intact. Moist mucous membranes. Neck: Supple. Respiratory: Lungs are clear to auscultation bilaterally. Cardiovascular: Irregularly irregular rate and rhythm. Gastrointestinal: Abdomen is soft, nontender, and nondistended with positive bowel sounds. Skin: Warm and dry. No rash or lesions on limited exam. Extremities: No cyanosis, clubbing, or significant edema. Radial and pedal pulses intact. Neurological: Alert. Cranial nerves 2-12 are grossly intact. Some weakness on the right side which is chronic. Psychiatric: Pleasant and cooperative with normal mood and affect. Objective Data Vital Signs Vital Signs: Vital Signs - 24 hr 12/27/24 15:07 12/27/24 15:30 12/27/24 15:32 Temperature 97.8 F Pulse Rate 113 H 119 H 110 H Respiratory Rate 18 16 16 Blood Pressure 138/89 142/99 H 114/81 Pulse Oximetry 100 98 98 Oxygen Delivery Room Air 12/27/24 15:46 12/27/24 15:51 12/27/24 15:54 Temperature Pulse Rate 112 H 118 H 118 H Respiratory Rate 25 H 18 Blood Pressure 133/72 118/79 Pulse Oximetry 98 99 Oxygen Delivery Room Air 12/27/24 16:01 12/27/24 16:16 12/27/24 16:31 Temperature Pulse Rate 111 H 111 H 120 H Respiratory Rate 15 19 15 Blood Pressure 119/79 132/77 126/68 Pulse Oximetry 98 99 Oxygen Delivery 12/27/24 16:46 12/27/24 17:16 12/27/24 18:01 Temperature Pulse Rate 118 H 116 H 112 H Respiratory Rate 19 30 H 19 Blood Pressure 122/83 118/73 121/82 Pulse Oximetry 97 98 98 Oxygen Delivery 12/27/24 18:46 12/27/24 18:54 12/27/24 19:15 Temperature Pulse Rate 106 H 109 H 102 H Respiratory Rate 18 15 Blood Pressure 118/71 118/71 118/71 Pulse Oximetry 98 94 Oxygen Delivery 12/27/24 20:00 12/27/24 20:00 12/27/24 20:45 Temperature Pulse Rate 115 H 105 H 102 H Respiratory Rate 16 15 Blood Pressure 149/73 H Pulse Oximetry 96 94 Oxygen Delivery Room Air 12/27/24 22:00 12/27/24 22:00 12/27/24 22:00 Temperature Pulse Rate 100 96 Respiratory Rate Blood Pressure 111/62 111/62 Pulse Oximetry Oxygen Delivery 12/27/24 22:34 12/28/24 00:00 12/28/24 00:00 Temperature Pulse Rate 115 H 105 H 101 H Respiratory Rate 15 Blood Pressure 124/80 Pulse Oximetry 94 Oxygen Delivery Room Air 12/28/24 00:00 12/28/24 00:00 12/28/24 02:00 Temperature Pulse Rate 105 H 97 94 Respiratory Rate 18 Blood Pressure 124/80 Pulse Oximetry 94 Oxygen Delivery 12/28/24 02:00 12/28/24 02:00 12/28/24 03:35 Temperature Pulse Rate 94 95 95 Respiratory Rate 18 18 Blood Pressure 117/76 117/76 Pulse Oximetry 96 96 Oxygen Delivery Room Air 12/28/24 04:00 12/28/24 04:00 12/28/24 04:00 Temperature Pulse Rate 115 H 95 95 Respiratory Rate 18 Blood Pressure 132/79 132/79 Pulse Oximetry 99 Oxygen Delivery 12/28/24 05:49 12/28/24 05:56 12/28/24 06:00 Temperature Pulse Rate 94 94 92 Respiratory Rate 17 Blood Pressure 128/88 128/88 Pulse Oximetry 100 Oxygen Delivery 12/28/24 08:00 12/28/24 09:12 12/28/24 09:26 Temperature 97.6 F Pulse Rate 83 91 Respiratory Rate 12 Blood Pressure 117/73 Pulse Oximetry 100 99 Oxygen Delivery Room Air Intake/Output Intake/Output: Intake & Output 12/25/24 12/26/24 12/27/24 12/28/24 23:59 23:59 23:59 23:59 Intake Total 15.5 600 Balance 15.5 600 Meds/Results Medications: Active Medications Generic Name Dose Route Start Last Admin Trade Name Freq PRN Reason Stop Dose Admin Acetaminophen 500 mg 12/27/24 21:40 Acetaminophen 500 Mg Tablet PO Q6H PRN pain Aspirin 81 mg 12/28/24 08:00 12/28/24 09:12 Aspirin 81 Mg Chewable Tablet PO 81 mg DAILY@0800 [facility] Administration Calcium Carbonate 500 mg 12/28/24 09:00 12/28/24 09:12 Calcium/Vitamin D 500 Mg/5 Mcg (200 I.U.) Tablet PO 500 mg BID [facility] Administration Carbidopa/Levodopa 1 tablet 12/28/24 09:00 12/28/24 09:35 Carbidopa/Levodopa 12.5/50 Mg Tablet PO Not Given TID MANN Carbidopa/Levodopa 1 tablet 12/28/24 21:00 Carbidopa/Levodopa 25/100 Mg Tablet BY MOUTH QHS MANN Carbidopa/Levodopa 1 tablet 12/28/24 09:00 12/28/24 09:13 Carbidopa/Levodopa 25/100 Mg Tablet BY MOUTH 1 tablet TID MANN Administration Clopidogrel Bisulfate 75 mg 12/28/24 09:00 12/28/24 09:12 Clopidogrel Bisulfate 75 Mg Tablet PO 75 mg DAILY MANN Administration Cyanocobalamin 1,000 mcg 12/29/24 09:00 Cyanocobalamin 1,000 Mcg Tablet PO Q48H MANN Docusate Sodium 100 mg 12/27/24 22:35 12/28/24 00:19 Docusate Sodium 100 Mg Capsule PO Not Given QHS MANN Diltiazem HCl 100 mg in 100 mls @ 5 mls/hr 12/27/24 18:28 12/28/24 06:00 Cardizem 100 Mg/100 Ml IV CONT 12/28/24 14:27 5 mg/hr .Q20H STA 5 mls/hr Infusion 5 MG/HR Diltiazem HCl 100 mg in 100 mls @ 5 mls/hr 12/28/24 14:28 Cardizem 100 Mg/100 Ml IV CONT .Q20H MANN 5 MG/HR Levothyroxine Sodium 75 mcg 12/28/24 06:30 12/28/24 05:47 Levothyroxine Sodium 75 Mcg Tablet PO 75 mcg DAILY@0630 MANN Administration Miscellaneous Information 1 each 12/27/24 00:01 Comment Says, Per Patient, Cannot Take Generic Phenytoin Er Capsules And Is Bringing From XX 01/26/25 00:00 CLARIFY [facility] Ondansetron HCl 4 mg 12/27/24 19:09 Ondansetron Inj 4 Mg/2 Ml Vial IV PUSH Q4H PRN Nausea Phenobarbital 30 mg 12/28/24 06:00 12/28/24 05:46 Phenobarbital (*Crx) 30 Mg Tablet PO 30 mg Q8HR MANN Administration Phenytoin Sodium 100 mg 12/28/24 09:00 Phenytoin Sodium 100 Mg Extended Release Cap PO TID MANN Sotalol HCl 40 mg 12/27/24 21:55 12/28/24 09:12 Sotalol Hcl 40 Mg Tablet PO 40 mg Q12HR MANN Administration Radiology Results: ITS Impressions Chest X-Ray 12/27/24 15:45 IMPRESSION: No focal infiltrate or effusion. Head CT 12/27/24 23:09 Impression: No acute intracranial hemorrhage or suspicious mass effect. Labs Labs: Laboratory Results - last 24 hr 12/27/24 12/27/24 12/27/24 15:50 18:43 21:31 WBC 4.6 RBC 3.65 L Hgb 11.9 L Hct 36.9 L MCV 101.1 H MCH 32.6 MCHC 32.2 RDW 13.5 Plt Count 244 MPV 9.1 Immature Gran % (Auto) 0.2 Neut % (Auto) 46.3 Lymph % (Auto) 31.2 [place] % (Auto) 11.6 H Eos % (Auto) 9.4 H Baso % (Auto) 1.3 H Lymph # (Auto) 1.43 [place] # (Auto) 0.5 Eos # (Auto) 0.4 H Baso # (Auto) 0.1 Abs Immat Gran (auto) 0.01 Absolute Neuts (auto) 2.1 Absolute Nucleated RBC 0.000 Nucleated RBC % 0.0 PT 14.4 INR 1.1 APTT 25.4 Sodium 139 Potassium 4.3 Chloride 104 Carbon Dioxide 26 Anion Gap 9 BUN 33 H Creatinine 0.92 Estim Creat Clear Calc 33 Estimated GFR 58 L Glucose 86 Calcium 9.3 Total Bilirubin 0.2 AST 31 ALT 19 Alkaline Phosphatase 77 Troponin I < 0.012 < 0.012 < 0.012 Total Protein 8.0 Albumin 4.3 Lipase 119 Phenytoin 12/28/24 04:14 WBC RBC Hgb Hct MCV MCH MCHC RDW Plt Count MPV Immature Gran % (Auto) Neut % (Auto) Lymph % (Auto) [place] % (Auto) Eos % (Auto) Baso % (Auto) Lymph # (Auto) [place] # (Auto) Eos # (Auto) Baso # (Auto) Abs Immat Gran (auto) Absolute Neuts (auto) Absolute Nucleated RBC Nucleated RBC % PT INR APTT Sodium 140 Potassium 4.0 Chloride 107 Carbon Dioxide 26 Anion Gap 7 BUN 23 H D Creatinine 0.71 Estim Creat Clear Calc 44 Estimated GFR > 60 Glucose 100 Calcium 8.9 Total Bilirubin AST ALT Alkaline Phosphatase Troponin I Total Protein Albumin Lipase Phenytoin 4 L Quality VTE Prophylaxis VTE prophylaxis: mechanical ordered Hospitalist MIPS Advance Care Plan I have confirmed that the patient's Advanced Care Plan is present, code status is documented, or surrogate decision maker is listed in patient medical record.: Yes Medication Reconciliation I have utilized all available resources to obtain, update and review the patients current medications (includes all prescriptions, OTC, herbals, cannabis, and nutritional supplements).: Yes
--- NOTE | 2024-12-28 09:40 | PHAR ---
The patient's home med of Dilantin 100mg has been verified. Patient using her home med of brand name Dilantin 100mg
[2024-12-28] MEDS: PHENYTOIN SODIUM 100 EACH PO ×3 (10:02→20:38)
[2024-12-28 10:32] LABS: Cholesterol 171 mg/dL (0-200); HDL Direct 56 mg/dL; Triglycerides 106 mg/dL (<150)
[2024-12-28 10:37] LABS: Hemoglobin A1C 5.4 % (<5.7)
--- NOTE | 2024-12-28 10:39 | P.CONCA_ITS ---
Assessment and Plan Assessment and plan (1) Atrial fibrillation with rapid ventricular response: Code(s): I48.91 - Unspecified atrial fibrillation Status: Acute Assessment and Plan: Patient would prefer to attempt to restore sinus rhythm. Will keep her NPO at midnight with plan for cardioversion in the morning. Continue diltiazem for now. She is not on anticoagulation at this point because she underwent Watchman procedure. Continue Plavix for the time being. (2) Hypertension: Qualifiers: Hypertension type: essential hypertension Qualified Code(s): I10 - Essential (primary) hypertension Code(s): I10 - Essential (primary) hypertension Status: Chronic Assessment and Plan: Blood pressure is at goal. (3) CHF (congestive heart failure): Qualifiers: Heart failure chronicity: acute on chronic Heart failure type: right- sided Qualified Code(s): I50.813 - Acute on chronic right heart failure Code(s): I50.9 - Heart failure, unspecified Status: Acute Assessment and Plan: No signs of decompensated heart failure on exam. History of Present Illness History of Present Illness Consult date/time: 12/28/24 10:39 Requesting physician: Nico Acevedo MD Consult reason: atrial fibrillation Reason For Visit: atrial fib with RVR Narrative: Maame Frias is an 84-year-old female who is an established patient of Dr. Marin with a history of paroxysmal atrial fibrillation. She enters the hospital with a chief complaint of dizziness. Cardiology has been consulted for atrial fibrillation with rapid ventricular response. This is a patient whose atrial fibrillation has been managed with cardioversion x 2 and antiarrhythmic therapy with sotalol. She had been falling frequently therefore, she was not deemed to be a safe candidate for anticoagulation and has undergone left atrial appendage closure. She denies any chest pain, palpitations, shortness of breath. Her only symptom indicating that she was back in atrial fibrillation was dizziness. Her rate is currently controlled on 5 milligrams/hour of diltiazem IV. [facility] Past Medical History Medical History (Updated 12/27/24 @ 22:31 by Pearl Bergman PA-C) Parkinsons disease Chronic anticoagulation Arthritis Paroxysmal atrial fibrillation history of cardioversion in 12/2023 Pulmonary embolism (11/2023) Constipation Wears glasses Lumbar radiculopathy Vitamin D deficiency Low vitamin D level Hypertension Vitamin D deficiency Hypothyroidism Cerebral palsy Patient denies this diagnosis but states she has had right-sided weakness and spasticity since . 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 Code status: Full code. Smoking status: Never smoker Second hand tobacco smoke exposure: No Alcohol intake: never Substance use: never Substance use type: does not use Do You Feel Safe in your Home?: Yes Lack of Transportation: No Lack of Food: Never True Current Housing: I Have Housing Concerned About Future Housing: No Difficulty Paying Gas/Electric Bills: No Difficulty Paying for Meds: No Currently Unemployed: No Education: Trade/Vocational Certificate Difficulty w/ Childcare or Family Care: Decline to Answer Living arrangements: assisted living Additional living arrangements comments: . Occupation/Education: retired Spiritual care concerns: No Meds Home Medications and Allergies Home Medications ?Medication ?Instructions ?Recorded ?Confirmed ?Type docusate sodium 100 mg tablet 100 - 200 mg (1 - 2 x 100 mg) PO 04/18/22 12/27/24 Rx QHS #90 tabs apixaban 5 mg tablet (Eliquis) 5 mg PO BID #60 tabs 07/19/24 12/27/24 Rx phenobarbital 30 mg tablet 30 mg PO TID #90 tabs 11/04/24 12/27/24 Rx Dilantin Extended 100 mg capsule 100 mg PO TID #90 caps 11/23/24 12/27/24 Rx (phenytoin sodium extended) acetaminophen 500 mg tablet 500 mg PO Q6H PRN pain #120 tabs 11/23/24 12/27/24 Rx (Tylenol Extra Strength) levothyroxine 75 mcg tablet 75 mcg PO DAILY #90 tabs 11/23/24 12/27/24 Rx mecobalamin (vitamin B12) 1,000 1,000 mcg PO EVERY OTHER DAY #90 11/23/24 12/27/24 Rx mcg disintegrating tabs tablet,sublingual sotalol 80 mg tablet 40 mg (1/2 x 80 mg) PO Q12HR #90 11/23/24 12/27/24 Rx tabs calcium 600 mg (as 1 tablet PO BID #180 tabs 11/26/24 12/27/24 Rx carbonate)-vitamin D3 10 mcg (400 unit) tablet aspirin 81 mg chewable tablet 1 tablet PO DAILY 12/27/24 12/27/24 History cholecalciferol (vitamin D3) 25 25 mcg PO .MWF 12/27/24 12/27/24 History mcg (1,000 unit) capsule clopidogrel 75 mg tablet 75 mg PO DAILY 12/27/24 12/27/24 History carbidopa 25 mg-levodopa 100 mg 1 tablet PO .q8hr 12/28/24 12/28/24 History tablet Allergies Allergy/AdvReac Type Severity Reaction Status Date / Time iohexol (From contrast - CT, Allergy Itching Verified 12/27/24 14:50 X-RAY) Vital Signs Vital Signs - 24 hr 12/27/24 15:07 12/27/24 15:30 12/27/24 15:32 Temperature 36.6 C Pulse Rate 113 H 119 H 110 H Respiratory Rate 18 16 16 Blood Pressure 138/89 142/99 H 114/81 Pulse Oximetry 100 98 98 Oxygen Delivery Room Air 12/27/24 15:46 12/27/24 15:51 12/27/24 15:54 Temperature Pulse Rate 112 H 118 H 118 H Respiratory Rate 25 H 18 Blood Pressure 133/72 118/79 Pulse Oximetry 98 99 Oxygen Delivery Room Air 12/27/24 16:01 12/27/24 16:16 12/27/24 16:31 Temperature Pulse Rate 111 H 111 H 120 H Respiratory Rate 15 19 15 Blood Pressure 119/79 132/77 126/68 Pulse Oximetry 98 99 Oxygen Delivery 12/27/24 16:46 12/27/24 17:16 12/27/24 18:01 Temperature Pulse Rate 118 H 116 H 112 H Respiratory Rate 19 30 H 19 Blood Pressure 122/83 118/73 121/82 Pulse Oximetry 97 98 98 Oxygen Delivery 12/27/24 18:46 12/27/24 18:54 12/27/24 19:15 Temperature Pulse Rate 106 H 109 H 102 H Respiratory Rate 18 15 Blood Pressure 118/71 118/71 118/71 Pulse Oximetry 98 94 Oxygen Delivery 12/27/24 20:00 12/27/24 20:00 12/27/24 20:45 Temperature Pulse Rate 115 H 105 H 102 H Respiratory Rate 16 15 Blood Pressure 149/73 H Pulse Oximetry 96 94 Oxygen Delivery Room Air 12/27/24 22:00 12/27/24 22:00 12/27/24 22:00 Temperature Pulse Rate 100 96 Respiratory Rate Blood Pressure 111/62 111/62 Pulse Oximetry Oxygen Delivery 12/27/24 22:34 12/28/24 00:00 12/28/24 00:00 Temperature Pulse Rate 115 H 105 H 101 H Respiratory Rate 15 Blood Pressure 124/80 Pulse Oximetry 94 Oxygen Delivery Room Air 12/28/24 00:00 12/28/24 00:00 12/28/24 02:00 Temperature Pulse Rate 105 H 97 94 Respiratory Rate 18 Blood Pressure 124/80 Pulse Oximetry 94 Oxygen Delivery 12/28/24 02:00 12/28/24 02:00 12/28/24 03:35 Temperature Pulse Rate 94 95 95 Respiratory Rate 18 18 Blood Pressure 117/76 117/76 Pulse Oximetry 96 96 Oxygen Delivery Room Air 12/28/24 04:00 12/28/24 04:00 12/28/24 04:00 Temperature Pulse Rate 115 H 95 95 Respiratory Rate 18 Blood Pressure 132/79 132/79 Pulse Oximetry 99 Oxygen Delivery 12/28/24 05:49 12/28/24 05:56 12/28/24 06:00 Temperature Pulse Rate 94 94 92 Respiratory Rate 17 Blood Pressure 128/88 128/88 Pulse Oximetry 100 Oxygen Delivery 12/28/24 08:00 12/28/24 09:12 12/28/24 09:26 Temperature 36.4 C Pulse Rate 83 91 Respiratory Rate 12 Blood Pressure 117/73 Pulse Oximetry 100 99 Oxygen Delivery Room Air 12/28/24 10:00 Temperature 36.7 C Pulse Rate 80 Respiratory Rate 20 Blood Pressure 111/68 Pulse Oximetry 100 Oxygen Delivery Exam 2 Const: General: comfortable, no acute distress, alert and awake O rientation/consciousness: patient oriented x3 HENMT: Head: normal to inspection Eyes: General: appearance normal, both eyes and all related structures P upils: Equal, round and reactive pupils present Neck: Neck: normal visual inspection, supple and no JVD Carotids: normal carotid upstroke Resp: Effort & Inspection: normal respiratory effort Auscultation: clear to auscultation bilaterally Cardio: Rate: regular rate Rhythm: abnormal rhythm irregularly irregular Heart sounds: S1 normal heart sound present and S2 normal heart sound present GI: Auscultation: normal bowel sounds Skin: General skin exam: normal color Neuro: General: patient oriented x3 Cranial nerves: Yes Equal, round and reactive pupils present Extrem: General: normal to inspection Psych: Appearance: grossly normal Mental Status: mental status grossly normal Results Labs and Meds 12/27/24 15:50 12/28/24 04:14 Lab results: Cardiac Enzymes 12/27/24 12/27/24 12/27/24 Range/Units 15:50 18:43 21:31 AST 31 (14-36) U/L Troponin I < 0.012 < 0.012 < 0.012 (0.000-0.034) ng/mL Coagulation 12/27/24 Range/Units 15:50 PT 14.4 (11.1-14.7) Seconds APTT 25.4 (22.3-36.8) Seconds Lipids 12/28/24 Range/Units 10:09 Triglycerides 106 (<150) mg/dL Cholesterol 171 (0-200) mg/dL CBC 12/27/24 Range/Units 15:50 WBC 4.6 (4.5-10.0) K/mm3 RBC 3.65 L (4.2-5.4) M/mm3 Hgb 11.9 L (12.0-15.0) g/dL Hct 36.9 L (37.0-47.0) % Plt Count 244 (150-375) k/mm3 Lymph # (Auto) 1.43 (0.9-3.2) K/mm3 Villalba # (Auto) 0.5 (0.1-0.6) K/mm3 Eos # (Auto) 0.4 H (0-0.3) K/mm3 Baso # (Auto) 0.1 (0.0-0.1) K/mm3 Comprehensive Metabolic Panel 12/27/24 12/28/24 Range/Units 15:50 04:14 Sodium 139 140 (137-145) mmol/L Potassium 4.3 4.0 (3.4-5.0) mmol/L Chloride 104 107 (98-107) mmol/L Carbon Dioxide 26 26 (22-30) mmol/L BUN 33 H 23 H D (7-17) mg/dL Creatinine 0.92 0.71 (0.7-1.0) mg/dL Glucose 86 100 (65-110) mg/dL Calcium 9.3 8.9 (8.4-10.2) mg/dL AST 31 (14-36) U/L ALT 19 (6-35) U/L Alkaline Phosphatase 77 (38-126) U/L Total Protein 8.0 (6.3-8.2) g/dL Albumin 4.3 (3.5-5.1) g/dL Intake and Output 12/27/24 12/28/24 12/28/24 23:59 07:59 15:59 Intake Total 15.5 240 360 Balance 15.5 240 360 Intake: IV 15.5 40 dilTIAZem 100 MG/100 ML 100 mg 15.5 40 In 100 ml @ 5 MG/HR 5 mls/hr IV CONT .Q20H STA Rx#:[id number] Oral 200 360 Other: # Unmeasured Voids 6 Patient Weight 12/28/24 23:59 Weight 60.7 kg
[2024-12-28 10:42] LABS: LDL Cholesterol Direct 68 mg/dL
[2024-12-28] MEDS: dilTIAZem 100 MG/100 ML 100 MG/100 ML BAG IV CONT (14:58)
[2024-12-28] MEDS: DOCUSATE SODIUM 100 MG CAPSULE PO (20:38)
[2024-12-29] VITALS (22 sets, daily range): BP systolic 95–128; BP diastolic 47–84; PULSE 53–110; RESP 13–20; TEMP 36.1–36.6; O2SAT 94–100
[2024-12-29 04:22] LABS: Hematocrit 36.4 % (37.0-47.0); Mean Platelet Volume 9.2 fl (7.4-10.4); Platelet Count Result 238 k/mm3 (150-375); Red Blood Count 3.64 M/mm3 (4.2-5.4); Red Cell Distribution Width 13.5 % (11.5-14.5); White Blood Count 4.9 K/mm3 (4.5-10.0)
[2024-12-29 04:37] LABS: Alanine Aminotransferase 8 U/L (6-35); Albumin Level 3.9 g/dL (3.5-5.1); Alkaline Phosphatase 74 U/L (38-126); Anion Gap 8 mmol/L (4-12); Aspartate Amino Transferase 26 U/L (14-36); Bilirubin,Total 0.2 mg/dL (0.2-1.3); Blood Urea Nitrogen 25 mg/dL (7-17); Calcium 8.9 mg/dL (8.4-10.2); Carbon Dioxide 27 mmol/L (22-30); Chloride 104 mmol/L (98-107); Estimated CRCL calculation 38 ml/min; Estimated Glomerular Filt Rate > 60; Glucose 88 mg/dL (65-110); Potassium 4.4 mmol/L (3.4-5.0); Sodium 139 mmol/L (137-145)
[2024-12-29] MEDS: PHENobarbitaL (*CRX) 30 MG TABLET PO ×3 (06:29→20:25)
[2024-12-29] MEDS: LEVOTHYROXINE SODIUM 75 MCG TABLET PO (06:29)
[2024-12-29] MEDS: PHENYTOIN SODIUM 100 EACH PO ×3 (06:30→20:26)
[2024-12-29] MEDS: CARBIDOPA/LEVODOPA 25/100 MG TABLET 1 TABLET BY MOUTH ×3 (06:30→20:26)
--- NOTE | 2024-12-29 07:00 | ECG_ITS ---
Test Date: 2024-12-29 09:08:18 Measurements Intervals [place] Rate: 91 P: 0 MO: 0 QRS: -9 QRSD: 75 T: 7 QT: 374 QTc: 461 Interpretive Statements ATRIAL FIBRILLATION NONSPECIFIC ST & T-WAVE ABNORMALITY- LAT/HIGH LAT LEADS BASELINE ARTIFACT- V1 ABNORMAL ECG Compared to ECG 12/27/2024 15:26:51 HEART RATE HAS DECREASED Electronically Signed On 12-29-2024 09:25:14 CDT by Levar Reece D.O.
--- NOTE | 2024-12-29 08:02 | PM.IMPN ---
Progress Note: A&P Assessment and Plan (1) Atrial fibrillation with rapid ventricular response: Code(s): I48.91 - Unspecified atrial fibrillation Status: Acute (2) Hypertension: Qualifiers: Hypertension type: essential hypertension Qualified Code(s): I10 - Essential (primary) hypertension Code(s): I10 - Essential (primary) hypertension Status: Chronic (3) Hypothyroidism: Qualifiers: Hypothyroidism type: unspecified Qualified Code(s): E03.9 - Hypothyroidism, unspecified Code(s): E03.9 - Hypothyroidism, unspecified Status: Chronic Plan A.Fib Underwent cardioversion today Normal TSH S/P Amplatzer left atrial appendage occluder placed at [facility] within the last month As per pt:S/P cardioversion 2 times last year 2023 Denies alcoholism, drug abuse, excessive caffeine intake No Hx of CHF S/P diltiazem tarik [id number] 4(Age,HTN,Female) On aspirin, clopidogrel and Eliquis 5 mg p.o. b.i.d.(as per patient not taking Eliquis after the Watchman device) Order HbA1c and Lipid Panel Reviewed echo performed on 11/29/2023: Left ventricular systolic function is normal, estimated at >70%. 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 Patient has a long history of AFib for which she was received cardioversion November and January 2024. Patient also had a hip replacement last year and also has a past medical history of Parkinson's. Patient acknowledges drinking 1 cup of coffee everyday. Last year Dr. Grady changed medication from metoprolol to sotalol 80 mg in the morning and 40 mg in the night but patient was unable to tolerate the does so currently she is on sotalol 40 mg b.i.d.. Patient recently received Amplatzer with at [facility]. Patient was previously taking Eliquis which has been discontinued and advised the to take aspirin and Plavix after the procedure. Cardiology evaluated the patient and possible cardioversion 12/29:Successfully underwent cardioversion. On sinus rhythm. Patient feels ok and wants to go home tomorrow . Review of Systems Review of Systems: 12 systems were reviewed and are negative except for as per HPI. Exam Narrative: General: Well-developed elderly female supine in bed in no distress. Weight: 60.7 kg. BMI: 23.0. HEENT: Pupils reactive. Extraocular motions intact. Moist mucous membranes. Neck: Supple. Respiratory: Lungs are clear to auscultation bilaterally. Cardiovascular: Irregularly irregular rate and rhythm. Gastrointestinal: Abdomen is soft, nontender, and nondistended with positive bowel sounds. Skin: Warm and dry. No rash or lesions on limited exam. Extremities: No cyanosis, clubbing, or significant edema. Radial and pedal pulses intact. Neurological: Alert. Cranial nerves 2-12 are grossly intact. Some weakness on the right side which is chronic. Psychiatric: Pleasant and cooperative with normal mood and affect. Objective Data Vital Signs Vital Signs: Vital Signs - 24 hr 12/28/24 09:12 12/28/24 09:26 12/28/24 10:00 Temperature 98.1 F Pulse Rate 91 80 Respiratory Rate 20 Blood Pressure 111/68 Pulse Oximetry 99 100 Oxygen Delivery Room Air 12/28/24 10:00 12/28/24 10:00 12/28/24 11:59 Temperature 97.3 F L Pulse Rate 85 80 82 Respiratory Rate 16 Blood Pressure 111/68 117/77 Pulse Oximetry 97 Oxygen Delivery 12/28/24 12:00 12/28/24 12:00 12/28/24 14:00 Temperature Pulse Rate 82 86 94 Respiratory Rate Blood Pressure 117/77 Pulse Oximetry Oxygen Delivery 12/28/24 14:00 12/28/24 14:00 12/28/24 14:58 Temperature 98.0 F Pulse Rate 78 78 81 Respiratory Rate 16 Blood Pressure 113/68 113/68 113/68 Pulse Oximetry 97 Oxygen Delivery 12/28/24 15:57 12/28/24 16:00 12/28/24 16:00 Temperature 97.8 F Pulse Rate 85 86 85 Respiratory Rate 16 Blood Pressure 112/69 112/69 Pulse Oximetry 96 Oxygen Delivery 12/28/24 18:00 12/28/24 18:00 12/28/24 19:32 Temperature 97.4 F L Pulse Rate 90 90 89 Respiratory Rate 16 Blood Pressure 107/62 107/63 110/67 Pulse Oximetry 95 Oxygen Delivery 12/28/24 20:00 12/28/24 20:00 12/28/24 20:33 Temperature Pulse Rate 78 83 78 Respiratory Rate 16 Blood Pressure 110/67 Pulse Oximetry 95 Oxygen Delivery Room Air 12/28/24 20:37 12/28/24 21:27 12/28/24 22:00 Temperature Pulse Rate 92 85 92 Respiratory Rate Blood Pressure 121/70 121/70 Pulse Oximetry 97 Oxygen Delivery 12/28/24 22:00 12/28/24 23:36 12/28/24 23:45 Temperature 97.4 F L Pulse Rate 92 90 90 Respiratory Rate 16 16 Blood Pressure 111/47 L Pulse Oximetry 98 98 Oxygen Delivery Room Air 12/29/24 00:00 12/29/24 00:00 12/29/24 01:58 Temperature Pulse Rate 94 83 110 H Respiratory Rate Blood Pressure 111/47 L Pulse Oximetry Oxygen Delivery 12/29/24 01:58 12/29/24 02:00 12/29/24 04:00 Temperature 98 F Pulse Rate 102 H 87 88 Respiratory Rate 16 16 Blood Pressure 113/67 113/67 104/63 Pulse Oximetry 100 100 Oxygen Delivery 12/29/24 04:00 12/29/24 04:00 12/29/24 04:20 Temperature Pulse Rate 88 99 88 Respiratory Rate 16 Blood Pressure 104/63 Pulse Oximetry 100 Oxygen Delivery Room Air 12/29/24 06:00 12/29/24 06:00 12/29/24 06:00 Temperature Pulse Rate 94 84 97 Respiratory Rate 15 Blood Pressure 127/84 128/84 Pulse Oximetry 100 Oxygen Delivery Intake/Output Intake/Output: Intake & Output 12/26/24 12/27/24 12/28/24 12/29/24 23:59 23:59 23:59 23:59 Intake Total 15.5 1455.2 40 Output Total 350 Balance 15.5 1105.2 40 Meds/Results Medications: Active Medications Generic Name Dose Route Start Last Admin Trade Name Freq PRN Reason Stop Dose Admin Acetaminophen 500 mg 12/27/24 21:40 Acetaminophen 500 Mg Tablet PO Q6H PRN pain Aspirin 81 mg 12/28/24 08:00 12/28/24 09:12 Aspirin 81 Mg Chewable Tablet PO 81 mg DAILY@0800 MANN Administration Calcium Carbonate 500 mg 12/28/24 09:00 12/28/24 16:22 Calcium/Vitamin D 500 Mg/5 Mcg (200 I.U.) Tablet PO 500 mg BID MANN Administration Carbidopa/Levodopa 1 tablet 12/28/24 16:00 12/29/24 06:30 Carbidopa/Levodopa 25/100 Mg Tablet BY MOUTH 1 tablet TID@0700,1600,2200 MANN Administration Clopidogrel Bisulfate 75 mg 12/28/24 09:00 12/28/24 09:12 Clopidogrel Bisulfate 75 Mg Tablet PO 75 mg DAILY MANN Administration Cyanocobalamin 1,000 mcg 12/29/24 09:00 Cyanocobalamin 1,000 Mcg Tablet PO Q48H MANN Docusate Sodium 100 mg 12/27/24 22:35 12/28/24 20:38 Docusate Sodium 100 Mg Capsule PO 100 mg QHS MANN Administration Diltiazem HCl 100 mg in 100 mls @ 5 mls/hr 12/28/24 14:28 12/29/24 06:00 Cardizem 100 Mg/100 Ml IV CONT 5 mg/hr .Q20H MANN 5 mls/hr Infusion 5 MG/HR Levothyroxine Sodium 75 mcg 12/28/24 06:30 12/29/24 06:29 Levothyroxine Sodium 75 Mcg Tablet PO 75 mcg DAILY@0630 [facility] Administration Nonform Dilantin ( 100 each 12/28/24 16:00 12/29/24 06:30 Phenytoin Sodium) PO 01/27/25 15:59 100 each 100 Mg Extended TID@0700,1600,2200 MANN Administration Release Cap Ondansetron HCl 4 mg 12/27/24 19:09 Ondansetron Inj 4 Mg/2 Ml Vial IV PUSH Q4H PRN Nausea Phenobarbital 30 mg 12/28/24 14:00 12/29/24 06:29 Phenobarbital (*Crx) 30 Mg Tablet PO 30 mg Q8HR MANN Administration Sotalol HCl 40 mg 12/27/24 21:55 12/28/24 20:37 Sotalol Hcl 40 Mg Tablet PO 40 mg Q12HR MANN Administration Radiology Results: ITS Impressions Chest X-Ray 12/27/24 15:45 IMPRESSION: No focal infiltrate or effusion. Head CT 12/27/24 23:09 Impression: No acute intracranial hemorrhage or suspicious mass effect. Labs Labs: Laboratory Results - last 24 hr 12/28/24 12/29/24 10:09 03:42 WBC 4.9 RBC 3.64 L Hgb 12.0 Hct 36.4 L MCV 100.0 MCH 33.0 MCHC 33.0 RDW 13.5 Plt Count 238 MPV 9.2 Sodium 139 Potassium 4.4 Chloride 104 Carbon Dioxide 27 Anion Gap 8 BUN 25 H Creatinine 0.82 Estim Creat Clear Calc 38 Estimated GFR > 60 Glucose 88 Hemoglobin A1c 5.4 Calcium 8.9 Total Bilirubin 0.2 AST 26 ALT 8 Alkaline Phosphatase 74 Total Protein 7.0 Albumin 3.9 Triglycerides 106 Cholesterol 171 LDL Cholesterol Direct 68 HDL Direct 56 TSH (Reflex) 1.900 Quality VTE Prophylaxis VTE prophylaxis: mechanical ordered Hospitalist MIPS Advance Care Plan I have confirmed that the patient's Advanced Care Plan is present, code status is documented, or surrogate decision maker is listed in patient medical record.: Yes Medication Reconciliation I have utilized all available resources to obtain, update and review the patients current medications (includes all prescriptions, OTC, herbals, cannabis, and nutritional supplements).: Yes
[2024-12-29] MEDS: CYANOCOBALAMIN 1,000 MCG TABLET 1000 MCG PO (08:43)
[2024-12-29] MEDS: SOTALOL HCL 40 MG TABLET PO ×2 (08:43→20:25)
[2024-12-29] MEDS: ASPIRIN 81 MG CHEWABLE TABLET PO (08:44)
[2024-12-29] MEDS: CLOPIDOGREL BISULFATE 75 MG TABLET PO (08:44)
[2024-12-29] MEDS: CALCIUM/VITAMIN D 500 MG/5 MCG (200 I.U.) TABLET PO ×2 (08:44→16:41)
--- NOTE | 2024-12-29 09:16 | WPDMODSED ---
Moderate Sedation Note-Pt Data Patient Data Diagnosis: Atrial fibrillation Present Complaint: Atrial fibrillation Procedure to be performed/Plan: 1. Moderate sedation 2 Cardioversion Allergies Allergy/AdvReac Type Severity Reaction Status Date / Time iohexol (From contrast - CT, Allergy Itching Verified 12/27/24 14:50 X-RAY) Home Medications ?Medication ?Instructions ?Recorded ?Confirmed ?Type docusate sodium 100 mg tablet 100 - 200 mg (1 - 2 x 100 mg) PO 04/18/22 12/27/24 Rx QHS #90 tabs apixaban 5 mg tablet (Eliquis) 5 mg PO BID #60 tabs 07/19/24 12/27/24 Rx phenobarbital 30 mg tablet 30 mg PO TID #90 tabs 11/04/24 12/27/24 Rx Dilantin Extended 100 mg capsule 100 mg PO TID #90 caps 11/23/24 12/27/24 Rx (phenytoin sodium extended) acetaminophen 500 mg tablet 500 mg PO Q6H PRN pain #120 tabs 11/23/24 12/27/24 Rx (Tylenol Extra Strength) levothyroxine 75 mcg tablet 75 mcg PO DAILY #90 tabs 11/23/24 12/27/24 Rx mecobalamin (vitamin B12) 1,000 1,000 mcg PO EVERY OTHER DAY #90 11/23/24 12/27/24 Rx mcg disintegrating tabs tablet,sublingual sotalol 80 mg tablet 40 mg (1/2 x 80 mg) PO Q12HR #90 11/23/24 12/27/24 Rx tabs calcium 600 mg (as 1 tablet PO BID #180 tabs 11/26/24 12/27/24 Rx carbonate)-vitamin D3 10 mcg (400 unit) tablet aspirin 81 mg chewable tablet 1 tablet PO DAILY 12/27/24 12/27/24 History cholecalciferol (vitamin D3) 25 25 mcg PO .MWF 12/27/24 12/27/24 History mcg (1,000 unit) capsule clopidogrel 75 mg tablet 75 mg PO DAILY 12/27/24 12/27/24 History carbidopa 25 mg-levodopa 100 mg 1 tablet PO .q8hr 12/28/24 12/28/24 History tablet Current Medications: Active Medications Acetaminophen (Acetaminophen 500 Mg Tablet) 500 mg PO Q6H PRN PRN Reason: pain Aspirin (Aspirin 81 Mg Chewable Tablet) 81 mg PO DAILY@0800 [facility] Last Admin: 12/29/24 08:44 Dose: 81 mg Calcium Carbonate (Calcium/Vitamin D 500 Mg/5 Mcg (200 I.U.) Tablet) 500 mg PO BID [facility] Last Admin: 12/29/24 08:44 Dose: 500 mg Carbidopa/Levodopa (Carbidopa/Levodopa 25/100 Mg Tablet) 1 tablet BY MOUTH TID@0700,1600,2200 [facility] Last Admin: 12/29/24 06:30 Dose: 1 tablet Clopidogrel Bisulfate (Clopidogrel Bisulfate 75 Mg Tablet) 75 mg PO DAILY [facility] Last Admin: 12/29/24 08:44 Dose: 75 mg Cyanocobalamin (Cyanocobalamin 1,000 Mcg Tablet) 1,000 mcg PO Q48H [facility] Last Admin: 12/29/24 08:43 Dose: 1,000 mcg Docusate Sodium (Docusate Sodium 100 Mg Capsule) 100 mg PO QHS [facility] Last Admin: 12/28/24 20:38 Dose: 100 mg Diltiazem HCl (Cardizem 100 Mg/100 Ml) 100 mg in 100 mls @ 5 mls/hr IV CONT .Q20H [facility] Last Infusion: 12/29/24 06:00 Dose: 5 mg/hr, 5 mls/hr Levothyroxine Sodium (Levothyroxine Sodium 75 Mcg Tablet) 75 mcg PO DAILY@0630 [facility] Last Admin: 12/29/24 06:29 Dose: 75 mcg Nonform Dilantin ( Phenytoin Sodium) 100 Mg Extended Release Cap 100 each PO TID@0700,1600,2200 [facility] Stop: 01/27/25 15:59 Last Admin: 12/29/24 06:30 Dose: 100 each Ondansetron HCl (Ondansetron Inj 4 Mg/2 Ml Vial) 4 mg IV PUSH Q4H PRN PRN Reason: Nausea Phenobarbital (Phenobarbital (*Crx) 30 Mg Tablet) 30 mg PO Q8HR [facility] Last Admin: 12/29/24 06:29 Dose: 30 mg Sotalol HCl (Sotalol Hcl 40 Mg Tablet) 40 mg PO Q12HR [facility] Last Admin: 12/29/24 08:43 Dose: 40 mg Sedation/Anesthesia: No previous sedation/anesthesia problems (including family history). [facility] Past Medical History Medical History (Updated 12/27/24 @ 22:31 by Pearl Bergman PA-C) Parkinsons disease Chronic anticoagulation Arthritis Paroxysmal atrial fibrillation history of cardioversion in 12/2023 Pulmonary embolism (11/2023) Constipation Wears glasses Lumbar radiculopathy Vitamin D deficiency Low vitamin D level Hypertension Vitamin D deficiency Hypothyroidism Cerebral palsy Patient denies this diagnosis but states she has had right-sided weakness and spasticity since . 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 Code status: Full code. Smoking status: Never smoker Second hand tobacco smoke exposure: No Alcohol intake: never Substance use: never Substance use type: does not use Do You Feel Safe in your Home?: Yes Lack of Transportation: No Lack of Food: Never True Current Housing: I Have Housing Concerned About Future Housing: No Difficulty Paying Gas/Electric Bills: No Difficulty Paying for Meds: No Currently Unemployed: No Education: Trade/Vocational Certificate Difficulty w/ Childcare or Family Care: Decline to Answer Living arrangements: assisted living Additional living arrangements comments: . Occupation/Education: retired Spiritual care concerns: No Mod Sed Physical Exam Physical Exam Pre Procedural Exam: Normal: Appearance, Eyes, Ears, Nose, Neck, Throat, Airway, Lungs, Heart Size, Heart Rate, Neuro Exam, Extremities and Skin and Variation: Heart Rhythm (Irregular irregular) Hours since solid foods: 12 Hours since liquid intake: 12 Mallampati Classification: class II Internal Medicine - PN: Obj Da Vital Signs Vital Signs: Vital Signs - 24 hr 12/28/24 09:26 12/28/24 10:00 12/28/24 10:00 Temperature 36.7 C Pulse Rate 80 85 Respiratory Rate 20 Blood Pressure 111/68 Pulse Oximetry 99 100 Oxygen Delivery Room Air 12/28/24 10:00 12/28/24 11:59 12/28/24 12:00 Temperature 36.3 C L Pulse Rate 80 82 82 Respiratory Rate 16 Blood Pressure 111/68 117/77 117/77 Pulse Oximetry 97 Oxygen Delivery 12/28/24 12:00 12/28/24 14:00 12/28/24 14:00 Temperature 36.7 C Pulse Rate 86 94 78 Respiratory Rate 16 Blood Pressure 113/68 Pulse Oximetry 97 Oxygen Delivery 12/28/24 14:00 12/28/24 14:58 12/28/24 15:57 Temperature 36.6 C Pulse Rate 78 81 85 Respiratory Rate 16 Blood Pressure 113/68 113/68 112/69 Pulse Oximetry 96 Oxygen Delivery 12/28/24 16:00 12/28/24 16:00 12/28/24 18:00 Temperature Pulse Rate 86 85 90 Respiratory Rate Blood Pressure 112/69 107/62 Pulse Oximetry Oxygen Delivery 12/28/24 18:00 12/28/24 19:32 12/28/24 20:00 Temperature 36.3 C L Pulse Rate 90 89 78 Respiratory Rate 16 Blood Pressure 107/63 110/67 110/67 Pulse Oximetry 95 Oxygen Delivery 12/28/24 20:00 12/28/24 20:33 12/28/24 20:37 Temperature Pulse Rate 83 78 92 Respiratory Rate 16 Blood Pressure Pulse Oximetry 95 Oxygen Delivery Room Air 12/28/24 21:27 12/28/24 22:00 12/28/24 22:00 Temperature Pulse Rate 85 92 92 Respiratory Rate Blood Pressure 121/70 121/70 Pulse Oximetry 97 Oxygen Delivery 12/28/24 23:36 12/28/24 23:45 12/29/24 00:00 Temperature 36.3 C L Pulse Rate 90 90 94 Respiratory Rate 16 16 Blood Pressure 111/47 L Pulse Oximetry 98 98 Oxygen Delivery Room Air 12/29/24 00:00 12/29/24 01:58 12/29/24 01:58 Temperature Pulse Rate 83 110 H 102 H Respiratory Rate 16 Blood Pressure 111/47 L 113/67 Pulse Oximetry 100 Oxygen Delivery 12/29/24 02:00 12/29/24 04:00 12/29/24 04:00 Temperature 36.6 C Pulse Rate 87 88 88 Respiratory Rate 16 Blood Pressure 113/67 104/63 104/63 Pulse Oximetry 100 Oxygen Delivery 12/29/24 04:00 12/29/24 04:20 12/29/24 06:00 Temperature Pulse Rate 99 88 94 Respiratory Rate 16 Blood Pressure Pulse Oximetry 100 Oxygen Delivery Room Air 12/29/24 06:00 12/29/24 06:00 12/29/24 08:00 Temperature 36.4 C L Pulse Rate 84 97 90 Respiratory Rate 15 18 Blood Pressure 127/84 128/84 113/56 L Pulse Oximetry 100 99 Oxygen Delivery 12/29/24 08:43 Temperature Pulse Rate 92 Respiratory Rate Blood Pressure Pulse Oximetry Oxygen Delivery Intake/Output Intake/Output: Intake & Output 12/26/24 12/27/24 12/28/24 12/29/24 23:59 23:59 23:59 23:59 Intake Total 15.5 1455.2 40 Output Total 350 Balance 15.5 1105.2 40 Meds/Results Medications: Active Medications Generic Name Dose Route Start Last Admin Trade Name Freq PRN Reason Stop Dose Admin Acetaminophen 500 mg 12/27/24 21:40 Acetaminophen 500 Mg Tablet PO Q6H PRN pain Aspirin 81 mg 12/28/24 08:00 12/29/24 08:44 Aspirin 81 Mg Chewable Tablet PO 81 mg DAILY@0800 MANN Administration Calcium Carbonate 500 mg 12/28/24 09:00 12/29/24 08:44 Calcium/Vitamin D 500 Mg/5 Mcg (200 I.U.) Tablet PO 500 mg BID MANN Administration Carbidopa/Levodopa 1 tablet 12/28/24 16:00 12/29/24 06:30 Carbidopa/Levodopa 25/100 Mg Tablet BY MOUTH 1 tablet TID@0700,1600,2200 MANN Administration Clopidogrel Bisulfate 75 mg 12/28/24 09:00 12/29/24 08:44 Clopidogrel Bisulfate 75 Mg Tablet PO 75 mg DAILY MANN Administration Cyanocobalamin 1,000 mcg 12/29/24 09:00 12/29/24 08:43 Cyanocobalamin 1,000 Mcg Tablet PO 1,000 mcg Q48H MANN Administration Docusate Sodium 100 mg 12/27/24 22:35 12/28/24 20:38 Docusate Sodium 100 Mg Capsule PO 100 mg QHS MANN Administration Diltiazem HCl 100 mg in 100 mls @ 5 mls/hr 12/28/24 14:28 12/29/24 06:00 Cardizem 100 Mg/100 Ml IV CONT 5 mg/hr .Q20H MANN 5 mls/hr Infusion 5 MG/HR Levothyroxine Sodium 75 mcg 12/28/24 06:30 12/29/24 06:29 Levothyroxine Sodium 75 Mcg Tablet PO 75 mcg DAILY@0630 MANN Administration Nonform Dilantin ( 100 each 12/28/24 16:00 12/29/24 06:30 Phenytoin Sodium) PO 01/27/25 15:59 100 each 100 Mg Extended TID@0700,1600,2200 MANN Administration Release Cap Ondansetron HCl 4 mg 12/27/24 19:09 Ondansetron Inj 4 Mg/2 Ml Vial IV PUSH Q4H PRN Nausea Phenobarbital 30 mg 12/28/24 14:00 12/29/24 06:29 Phenobarbital (*Crx) 30 Mg Tablet PO 30 mg Q8HR MANN Administration Sotalol HCl 40 mg 12/27/24 21:55 12/29/24 08:43 Sotalol Hcl 40 Mg Tablet PO 40 mg Q12HR MANN Administration Radiology Results: ITS Impressions Chest X-Ray 12/27/24 15:45 IMPRESSION: No focal infiltrate or effusion. Head CT 12/27/24 23:09 Impression: No acute intracranial hemorrhage or suspicious mass effect. Labs 12/29/24 03:42 12/29/24 03:42 Labs: Laboratory Results - last 24 hr 12/28/24 12/29/24 10:09 03:42 WBC 4.9 RBC 3.64 L Hgb 12.0 Hct 36.4 L MCV 100.0 MCH 33.0 MCHC 33.0 RDW 13.5 Plt Count 238 MPV 9.2 Sodium 139 Potassium 4.4 Chloride 104 Carbon Dioxide 27 Anion Gap 8 BUN 25 H Creatinine 0.82 Estim Creat Clear Calc 38 Estimated GFR > 60 Glucose 88 Hemoglobin A1c 5.4 Calcium 8.9 Total Bilirubin 0.2 AST 26 ALT 8 Alkaline Phosphatase 74 Total Protein 7.0 Albumin 3.9 Triglycerides 106 Cholesterol 171 LDL Cholesterol Direct 68 HDL Direct 56 TSH (Reflex) 1.900 ASA Classification/Sedation ASA Classification/Sedation ASA Class: II Emergent: No Risks: Risks, benefits and alternatives explained and patient/family accepted plan for sedation. Patient re-evaluated immediately prior to sedation.
--- NOTE | 2024-12-29 09:25 | P.PCNCVR_ITS ---
Cardioversion Cardioversion Date of procedure: 12/29/24 Procedure: Cardioversion Moderate sedation Pre-op diagnosis: Atrial fibrillation Post-op diagnosis: Same Indications: Atrial fibrillation Description of procedure: After discussing risks, benefits alternatives of procedure patient agreeable via verbal and written informed consent. Risks discussed included skin irritation or burn, shocking into more problematic heart rhythm, stroke, . After establishing continuous telemetry monitoring, pulse oxygenation and serial blood pressure assessments time-out was taken procedure was started. Procedure start time 9:20 a.m. Procedure stop time 9:25 a.m. Blood loss: None Complications: None Sedation: Total 2 mg of Versed and 25 mcg of fentanyl used for moderate sedation Medications were administered and patient was monitored by Isis Weaver RN Findings: Atrial fibrillation was confirmed and after adequate sedation 125 joules of biphasic synchronized energy was used to restore sinus rhythm Conclusion: 1. Successful jehovah's witness a sinus rhythm from atrial fibrillation using 125 joules of biphasic synchronized energy 2. Moderate sedation
--- NOTE | 2024-12-29 09:30 | ECG_ITS ---
Test Date: 2024-12-29 09:27:46 Measurements Intervals [place] Rate: 57 P: 58 MS: 211 QRS: -5 QRSD: 86 T: 4 QT: 475 QTc: 465 Interpretive Statements SINUS BRADYCARDIA WITH FIRST DEGREE AV BLOCK WITH OCCASIONAL SUPRAVENTRICULAR PREMATURE COMPLEXES CONSIDER INFERIOR INFARCT, AGE INDETERMINATE BORDERLINE ST ABNORMALITY- HIGH LATERAL LEADS ABNORMAL ECG Compared to ECG 12/29/2024 09:08:18 First degree AV block now present Atrial fibrillation no longer present Electronically Signed On 12-29-2024 09:47:18 CDT by Levar Reece D.O.
[2024-12-29] MEDS: DOCUSATE SODIUM 100 MG CAPSULE PO (20:26)
[2024-12-30] VITALS (8 sets, daily range): BP systolic 122–129; BP diastolic 59–76; PULSE 58–77; RESP 12–18; TEMP 36.3–36.4; O2SAT 97–98
[2024-12-30 04:38] LABS: Hematocrit 33.6 % (37.0-47.0); Hemoglobin 10.7 g/dL (12.0-15.0); Mean Corpuscular HGB Conc 31.8 g/dl (32-36); Mean Corpuscular Volume 100.6 fl (80-100); Mean Platelet Volume 9.3 fl (7.4-10.4); Platelet Count Result 206 k/mm3 (150-375); Red Blood Count 3.34 M/mm3 (4.2-5.4); Red Cell Distribution Width 13.5 % (11.5-14.5)
[2024-12-30 04:53] LABS: Alanine Aminotransferase 9 U/L (6-35); Albumin Level 3.8 g/dL (3.5-5.1); Alkaline Phosphatase 83 U/L (38-126); Anion Gap 8 mmol/L (4-12); Aspartate Amino Transferase 25 U/L (14-36); Bilirubin,Total 0.3 mg/dL (0.2-1.3); Blood Urea Nitrogen 29 mg/dL (7-17); Calcium 8.7 mg/dL (8.4-10.2); Carbon Dioxide 25 mmol/L (22-30); Chloride 106 mmol/L (98-107); Estimated CRCL calculation 45 ml/min; Estimated Glomerular Filt Rate > 60; Glucose 98 mg/dL (65-110); Potassium 4.1 mmol/L (3.4-5.0); Sodium 139 mmol/L (137-145)
[2024-12-30] MEDS: LEVOTHYROXINE SODIUM 75 MCG TABLET PO (06:15)
[2024-12-30] MEDS: PHENYTOIN SODIUM 100 EACH PO (06:15)
[2024-12-30] MEDS: PHENobarbitaL (*CRX) 30 MG TABLET PO ×2 (06:15→13:24)
[2024-12-30] MEDS: CARBIDOPA/LEVODOPA 25/100 MG TABLET 1 TABLET BY MOUTH (06:15)
--- NOTE | 2024-12-30 07:40 | PM.DS ---
DS: Admitting Diagnosis Discharge Date 12/30/2024 Admitting Diagnosis Dizziness and high blood pressure DS: Discharge Diagnosis Discharge Diagnosis (1) Atrial fibrillation with rapid ventricular response: Code(s): I48.91 - Unspecified atrial fibrillation Status: Acute (2) Hypertension: Qualifiers: Hypertension type: essential hypertension Qualified Code(s): I10 - Essential (primary) hypertension Code(s): I10 - Essential (primary) hypertension Status: Chronic (3) Hypothyroidism: Qualifiers: Hypothyroidism type: unspecified Qualified Code(s): E03.9 - Hypothyroidism, unspecified Code(s): E03.9 - Hypothyroidism, unspecified Status: Chronic Plan A.Fib Underwent cardioversion today Normal TSH S/P Amplatzer left atrial appendage occluder placed at [facility] within the last month As per pt:S/P cardioversion 2 times last year 2023 Denies alcoholism, drug abuse, excessive caffeine intake No Hx of CHF S/P diltiazem drip [id number] 4(Age,HTN,Female) On aspirin, clopidogrel and Eliquis 5 mg p.o. b.i.d.(as per patient not taking Eliquis after the Watchman device) Order HbA1c and Lipid Panel Reviewed echo performed on 11/29/2023: Left ventricular systolic function is normal, estimated at >70%. Hypothyroidism normal TSH Continue levothyroxine 75 mcg DS: Summary Hospital Course Hospital Course: 84-year-old female with paroxysmal atrial fibrillation, pulmonary embolism, hypertension, hypothyroidism, Parkinson's, and seizure disorder who presented to the emergency department for evaluation of dizziness and high blood pressure. She had an Amplatzer left atrial appendage occluder placed at [facility] within the last month and had atrial fibrillation postoperatively but none since that time to her knowledge. Yesterday she reports feeling dizzy and when asked to further clarify she states it felt as though the room was moving and she was off-balance. She then took her vital signs and noted that her blood pressure was high in that her heart rate was high and irregular. Due to ongoing symptoms she came in for evaluation. She does not have any sensations of racing heart or palpitations and denies shortness of breath as well. She also denies visual changes, facial droop, difficulties speaking and swallowing, focal weakness, and paresthesias. She has not had any recent falls. In the ED: She was in rapid atrial fibrillation on arrival with stable blood pressures. Labs were significant for hemoglobin of 11.9, MCV 101.1, BUN 33, creatinine 58, troponin less than 0.012. Chest x-ray showed no focal infiltrate or effusion. EKG showed rapid atrial fibrillation without any significant changes compared to prior tracings. She received a diltiazem bolus and was started on a diltiazem drip with some improvement her rate. On car personal counselor for her group recommended increasing her morning sotalol dose to 80 mg and keeping 40 mg dose at nighttime however the patient is reluctant to make this change as when she was on higher doses of sotalol, she was very sleepy. I assumed care on 12/28: The patient lives in assisted living and follows up with Dr. Chau, the personal counselor. The patient has a long history of AFib, for which she received cardioversion in November and January 2024. The patient also had a hip replacement last year and also has a past medical history of Parkinson's. The patient acknowledges drinking 1 cup of coffee every day. Last year, Dr. Grady changed medication from metoprolol to sotalol 80 mg in the morning and 40 mg in the night, but the patient was unable to tolerate the dose, so currently, she is on sotalol 40 mg b.i.d. The patient recently received an Amplatzer from at [facility]. The patient was previously taking Eliquis, which has been discontinued, and was advised to take aspirin and Plavix after the procedure. Cardiology evaluated the patient and determined that the patient underwent cardioversion successfully. Status at Discharge Cognitive/behavioral status at discharge: Stable Time Spent with Patient Time attestation: Total time spent providing and/or coordinating discharge services: 45 minute Exam Narrative: General: Well-developed elderly female supine in bed in no distress. Weight: 60.7 kg. BMI: 23.0. HEENT: Pupils reactive. Extraocular motions intact. Moist mucous membranes. Neck: Supple. Respiratory: Lungs are clear to auscultation bilaterally. Cardiovascular: Irregularly irregular rate and rhythm. Gastrointestinal: Abdomen is soft, nontender, and nondistended with positive bowel sounds. Skin: Warm and dry. No rash or lesions on limited exam. Extremities: No cyanosis, clubbing, or significant edema. Radial and pedal pulses intact. Neurological: Alert. Cranial nerves 2-12 are grossly intact. Some weakness on the right side which is chronic. Psychiatric: Pleasant and cooperative with normal mood and affect. DS: Data Data Completed and Pending Labs on day of discharge: Labs from last 24 hours 12/30/24 12/28/24 04:13 04:14 WBC 5.0 RBC 3.34 L Hgb 10.7 L Hct 33.6 L MCV 100.6 H MCH 32.0 MCHC 31.8 L RDW 13.5 Plt Count 206 MPV 9.3 Sodium 139 Potassium 4.1 Chloride 106 Carbon Dioxide 25 Anion Gap 8 BUN 29 H Creatinine 0.69 L Estim Creat Clear Calc 45 Estimated GFR > 60 Glucose 98 Calcium 8.7 Total Bilirubin 0.3 AST 25 ALT 9 Alkaline Phosphatase 83 Total Protein 7.0 Albumin 3.8 Phenobarbital 21.9 Discharge Plan Discharge Attending physician on discharge: Nam Sales Consulting providers: Catia Arriola Discharging Clinician: Nam Sales Anticipated Discharge Date/Time: 12/30/24 13:37 Patient Disposition: NH Halfway/Asst Living Activity: as tolerated Diet: heart healthy Discharge Instructions: Eliquis 5 mg p.o. b.i.d. is on hold. As per patient, she was requested to take aspirin and clopidogrel by . Please discuss with your Cardiology in regards to Eliquis if it needs to be continued Check blood pressure 1 to 2 times a day. Record and bring into your doctor for review. Call your doctor if your blood pressure is greater than 180/110 or less than 90/45. Walk with cane or other assist device. Take precautions to avoid falls. Rise slowly from a lying or sitting position. Pause before standing or walking. Contact your doctor or call 911 and come to the Emergency Room if you have any type of trauma, lightheadedness with standing or other worrisome symptoms. Avoid NSAIDs (ibuprofen, naproxen, Aleve). Tylenol is safe to take. Follow-up with your primary care provider in 1-2 weeks. Please call for appointment. Follow-up with Cardiology in 2-4 weeks. Please call for an appointment. Thank you for using [facility] for your health care needs. Patient Instructions: Antibiotic Form, Clopidogrel (By mouth), Apixaban (By mouth), Heart Failure (GEN), A-fib (Atrial Fibrillation) (GEN) Patient Language: Syriac Stand Alone Forms: General Discharge Information Follow-up/Referrals: Catia Arriola MD [Physician] - Theodore Farrar MD [Primary Care Provider] - Discharge Medications: Continued aspirin 81 mg tablet,chewable 1 tablet PO DAILY clopidogrel 75 mg tablet 75 mg PO DAILY cholecalciferol (vitamin D3) 25 mcg (1,000 unit) capsule 25 mcg PO .MWF carbidopa-levodopa 25-100 mg tablet 1 tablet PO .q8hr Patient Comments: takes at breakfast. dinner and bedtime docusate sodium 100 mg tablet 100 - 200 mg PO QHS Qty: 90 1RF phenobarbital 30 mg tablet 30 mg PO TID Qty: 90 5RF phenytoin sodium extended [Dilantin Extended] 100 mg capsule 100 mg PO TID Qty: 90 5RF Patient Comments: PER PT CAN NOT TAKE GENERIC WILL BRING IN HOME MEDICATION acetaminophen [Tylenol Extra Strength] 500 mg tablet 500 mg PO Q6H PRN (Reason: pain) Qty: 120 5RF sotalol 80 mg tablet 40 mg PO Q12HR Qty: 90 1RF mecobalamin (vitamin B12) 1,000 mcg tablet,disintegrating 1,000 mcg PO EVERY OTHER DAY Qty: 90 1RF Rx Instructions: Friday, Friday, Friday levothyroxine 75 mcg tablet 75 mcg PO DAILY Qty: 90 1RF calcium carbonate-vitamin D3 600 mg-10 mcg (400 unit) tablet 1 tablet PO BID Qty: 180 0RF Held Eliquis 5 mg tablet 5 mg PO BID Qty: 60 5RF Hold Instructions: Resume on 02/24/25. Eliquis 5 mg p.o. b.i.d. is on hold. As per patient she was requested to take aspirin and clopidogrel. Please discuss with your Cardiology in regards to Eliquis if it needs to be continued Date of admission: 12/27/24 19:10 Primary Care Provider: Theodore Farrar Admitting Provider: Ashutosh Ray Attending physician on admission: Ashutosh Ray Condition: Stable
[2024-12-30] MEDS: CALCIUM/VITAMIN D 500 MG/5 MCG (200 I.U.) TABLET PO (08:12)
[2024-12-30] MEDS: ASPIRIN 81 MG CHEWABLE TABLET PO (08:12)
[2024-12-30] MEDS: CLOPIDOGREL BISULFATE 75 MG TABLET PO (08:12)
[2024-12-30] MEDS: SOTALOL HCL 40 MG TABLET PO (08:12)
== END 2024-12-30 15:17 | DRG 309 ==
LOC: ANHED 19:08 → ANHIMU 19:31
PROVIDERS: Emergency Medicine; Internal Medicine Cardiovascular Disease; Physician Assistant; Admitting Provider Internal Medicine; Emergency Provider Family Medicine; PCP Family Medicine; Visit Provider General Practice
PROC: 5A2204Z Restoration of Cardiac Rhythm, Single (ICD-10-PCS; principal; 2024-12-29 09:30)
DX: I48.0 Paroxysmal atrial fibrillation (principal); G80.1 Spastic diplegic cerebral palsy; I10 Essential (primary) hypertension; E03.9 Hypothyroidism, unspecified; G20.A1 Parkinson's disease without dyskinesia, without mention of fluctuations; G40.909 Epilepsy, unspecified, not intractable, without status epilepticus; M19.90 Unspecified osteoarthritis, unspecified site; Z96.642 Presence of left artificial hip joint; Z96.611 Presence of right artificial shoulder joint; Z90.710 Acquired absence of both cervix and uterus; Z79.01 Long term (current) use of anticoagulants; Z86.711 Personal history of pulmonary embolism; Z90.49 Acquired absence of other specified parts of digestive tract
CPT/HCPCS: 36415; 70450; 71046; 80048; 80053; 80061; 80184; 80185; 83036; 83690; 84443; 84484; 85025; 85027; 85610; 85730; 92960; 93005; 96374; 96375; 96376; 99285; A9270; J2250; J3010; J7040

== ENCOUNTER 2025-06-13 12:59 | Outpatient (CLI) | payer MEDICARE, OTHER, MEDICAID, SELFPAY ==
--- OUTSIDE RECORDS SUMMARY | 2017-08-05 19:00 | XMS_ITS | Continuity of Care Document ---
Author Organization [facility] Address [address] [place] [phone] Phone Care Team Providers Care Certified Executive Chef Name Role Phone RCM, Rendering Unavailable Unavailable Allergies, Adverse Reactions, Alerts Substance Reaction Status Criticality No Known Allergies Active No Inform ation Advance Directives Directive Yes / No Effective Date File Name No Information Encounters Encounter Description Practice Location Reason(s) For Visit Diagnoses Date Provider Providers Copied on Encounter [facility] , [address] [place] [address], [id number], tel:[phone] [facility] Presence of intraocular lensPunctate keratitis, bilateralOpen angle with borderline findings, low risk, bilateralOther secondary cataract, right eye 7 RCM Rendering . [address] [place] [address], [id number], [place]. tel: [phone] [facility] , [address] [place] [address], [id number], tel:[phone] [facility] Regular astigmatism, bilateralAge-rela may reticular degeneration of retina, bilateralMacular cyst, hole, or pseudohole, right eye 201 5 RCM Rendering . [address] [place] [address], [id number], [place]. tel: [phone] Family History Family Member Type Diagnosis Age [...]
--- OUTSIDE RECORDS SUMMARY | 2024-11-18 08:50 | XMS_ITS ---
Author Organization [facility] Address [address] [place], [place] [address] Care Team Providers Care Marble Installation Helper Name Role Phone ELINOR SCHULTZ Unavailable [phone] Theodore Farrar Unavailable Unavailable AMEMARIIELINOR Unavailable [phone] REASON FOR VISIT *General care Encounters Encounter Location Date Provider Diagnosis [facility] [place] [address] [facility] [address] [place], [place] [id number] 11/18/2024 ELINOR PHILLIPS Plan Of Treatment Next Appt Details Provider Name:ELINOR ANTOINE, 02:20:00 PM, [address], [address], [place], [place], [id number], Progress Notes * PRESLEY BRISCOE LDOB:1940 (84 yo F)Acc No.[id number]:11/18/2024 Patient: PRESLEY TALAMANTES Provider: Zachery Phillips DPM :1940 A ge:83 Y S ex:Female Date:11/18/2024 Address:[address], [facility] Subjective: * Chief Complaints: * 1 . *General care. * Medical History: Objective: * Vitals: Assessment: Plan: * Treatment: * Billing Information: * Visit Code: * Procedure Codes: * Electronic signature of ELINOR PHILLIPS DPM on 06/13/2025 at 01:27 PM CDT Sign off status: Pending * Provider: Zachery Phillips, WILIAN Date: 0 11/18/2024 Generated for Ori zhang/Kassandra/Neil on: 0 06/13/2025 01:27 PM CDT
--- OUTSIDE RECORDS SUMMARY | 2025-06-06 09:40 | XMS_ITS ---
Author Organization [facility] Address [address] [place], [place] [address] Care Team Providers Care Bump Grader Operator Name Role Phone ANTOINE ELINOR Unavailable [phone] Charan Theodore Unavailable Unavailable Allergies No Known Allergies REASON FOR VISIT Patient presents for at-risk foot care . The patient has painful toenails and calluses that are causing difficulty with ambulation and shoegear. The onset is gradual Medications Medication SIG (Take, Route, Frequency, Duration) Notes Start Date End Date Status Plavix Active Aspirin 81 Active Vital Signs Height 67.00 in 06/06/2025 Weight 130 lbs 06/06/2025 BMI 20.36 kg/m2 06/06/2025 Height-cm 170.18 cm 06/06/2025 Weight-kg 58.97 kg 06/06/2025 Encounters Encounter Location Date Provider Diagnosis [facility] [address] [place], [place] [id number] 06/06/2025 ELINOR SCHULTZ Tinea unguium B35.1 ; Pain in right foot M79.671 ; Pain in left foot M79.672 ; Atherosclerosis of [place] arteries of extremities with intermittent claudication, bilateral [...] foot (ICD-10 - M79.672) 06/06/2025 Atherosclerosis of [place] arteries of extremities with intermittent claudication, bilateral [...] Name:ELINOR SCHULTZ, 02:20:00 PM, [address], [facility], [place], [place], [address], Progress Notes * PRESLEY BRISCOE LDOB:1940 (84 yo F)Acc No.[id number]:06/06/2025 Patient: PRESLEY TALAMANTES Provider: Zachery Schultz DPM :1940 A ge:84 Y S ex:Female Date:06/06/2025 Address:[address] [place], [place] [id number] Subjective: * Chief Complaints: * 1 . [...] Farrar was May 2025., Initials IR. F fabien Up Visit P shine presents for follow up visit for wound check, MA: IR. * Medical History: P arkinson's disease, Osteoporosis. * Family History: F ather: PRN - Father: :: Cancer,,known absent , :: Heart Disease < 55 yrs,,known absent .?Mother: PRN - Mother: :: Cancer,,known absent , :: Arthritis,,known absent . * Social History: M igrated Social History: M igrated Social History: History of tobacco use : , Smoking Status : Never smoked. * Medications: T aking Aspirin 81 , Taking Plavix , Medication List reviewed and reconciled with the patient * Allergies: N .K.D.A. Objective: * Vitals: [...] - M79.672 4 . A therosclerosis of [place] arteries of extremities with intermittent claudication, bilateral legs - I70.213 5 . Acquired keratosis [keratoderma] palmaris et plantaris - L85.1 Plan: * Treatment: 2. A cquired keratosis [keratoderma] palmaris et plantaris Notes: A total of 2 corns or calluses, as described in the note above, were cut and pared utilizing a #15 blade * Preventive Medicine: Screenings: F all risk [...] Procedure Codes: * Electronic signature of ELINOR SCHULTZ DPM on 06/13/2025 at 01:27 PM CDT Sign off status: Pending * Provider: Zachery Schultz DPM Date: 06/06/2025 Generated for Ori Trevino on: 06/13/2025 01:27 PM CDT History and Physical Notes * [...]
--- NOTE | ~2025-06-13 | DEXA_ITS ---
Bone Density Report Name: PRESLEY BRISCOE Age: 84 Sex: Female Ethnicity: White Date of : 1940 Indication: osteopenia; monitoring treatment; height loss; history of glucocorticoids; seizure disorder; hysterectomy; Referring Provider: FREDERIC PARKER Study: Bone densitometry was performed. Exam Date: June 13, 2025 Accession number: [id number] Bone Density: Region BMD T-score Z-score Classification AP Spine(L2, L3, L4) 0.904 -1.6 1.3 Osteopenia Femoral Neck (Right) 0.557 -2.6 -0.1 Osteoporosis Total Hip (Right) 0.746 -1.6 0.7 Osteopenia World Health Organization criteria for BMD impression classify patients as: Normal (T-score at or above -1.0), Osteopenia (T-score between -1.0 and -2.5), or Osteoporosis (T-score at or below -2.5). 10-year Fracture Risk: FRAX not reported because: Some T-score for Spine Total or Hip Total or Femoral Neck at or below -2.5 Treated for osteoporosis Previous Exams: Region Exam Age BMD T-score BMD Change BMD Change Date g/cm2 vs Baseline vs Previous Total Hip(Right) 06/13/2025 84 0.746 -1.6 0.153 (25.8%)# 0.080 (12.0%)# 06/18/2024 83 0.666 -2.3 0.073 (12.3%)* 0.034 (5.3%)# 01/13/2023 82 0.633 -2.5 0.039 (6.6%)# -0.021 (-3.3%) 01/09/2022 81 0.654 -2.4 0.061 (10.2%)# 0.061 (10.2%)# 01/08/2021 80 0.594 -2.9 *Denotes significance at 95% confidence level, LSC for Total Hip = 0.027 g/cm2 # Denotes dissimilar scan types or analysis methods Clinical Information Provided by Patient: Has taken Glucocorticoids Is being treated for osteoporosis Has used the following medications: Vitamin D, Calcium Has the following medical conditions: Any Seizure Disorders, Hysterectomy Patient maximum height was 68 Menopause Age: 48 No regular weight bearing exercise Drinks caffeinated beverages Onset of menses at age 12 Number of children 0 Impression: The patient has osteoporosis, based on the Right Femoral Neck T-score. The patient has risk factors, including: history of glucocorticoid therapy. No significant bone loss was observed. Discussion: PATIENT UNDER TREATMENT WITH NO SIGNIFICANT BMD LOSS SINCE LAST EXAM. In an untreated patient, BMD typically declines with age. A lack of decline or gain is usually a sign that treatment is efficacious and fracture risk is reduced. It is important to ask patients whether they are taking their medications and to encourage continued and appropriate compliance with their osteoporosis therapies to reduce fracture risk. It is also important to review their risk factors and encourage appropriate calcium and vitamin D intakes, exercise, fall prevention and other lifestyle measures. Follow-Up: Consider a repeat BMD and Vertebral Fracture Assessment (VFA) exam in 2 years or sooner if medically necessary, to reassess this patient's status. Reported by: DONNA on 06/13/2025 1:38:00 PM. Reviewed, dictated and finalized at location A.
--- OUTSIDE RECORDS SUMMARY | 2025-06-13 13:27 | XMS_ITS | Encounter Summary ---
Author Organization [facility] Healthcare Address [address] [place] [address] Care Team Providers Care Contract Management Specialist Name Role Phone Bobo Lim Unavailable [phone] Andrew Vegas MD Unavailable [phone] Theodore Farrar MD Primary Care Provider [phone] Encounter Details Date Type Department Care Team (Late st Contact Info) Description 12/16/2024 [facility] Post Discharge Follow up phone call [facility] [address] [place] [address] Yolanda Gaona Social History Tobacco Use Types Packs/Day Years Used Date Smoking Tobacco: Never Smokeless Tobacco: Never Alcohol Use Standard Drinks/Week Comments No 0 (1 standard drink = 0.6 oz pur e alcohol) [facility] Utilities Answer Date Recorded In the past 12 months has [employer], gas, oil, or water [employer] threatened to shut off services in your home? No 11/04/2023 Social Connection and Isolation Panel Answer Date Recorded In a typical week, how many times do you talk on the phone with family, friends, or neighbors? More than three times a week 11/04/2023 How often do you get togethe r with friends or relatives? More than three times a week 11/04/2023 How often do you attend [facility] or gnosticism services? 1 to 4 times per year 11/04/2023 Do you belong to any clubs o r organizations such as restorationism groups, unions, fraternal or athletic groups, or [...] place to sleep or slept in a fci (including now)? No 11/04/2023 Personal Safety Answer Date Recorded Have you ever been in or are you currently in a harmful physical or emotional relationship or is someone making you feel afraid or unsafe? 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 Gender Identity Female 03/13/2020 12:13 PM CDT Sexual Orientation Not on file documented as of this encounter Plan of Treatment Not on file documented as of this encounter Visit Diagnoses Not on filedocumented in this encounter Care Teams Contract Management Specialist Relationship Specialty Start Date End Date Theodore Farrar MD [address] [place] [address] PCP - General Family Practice 11/06/24 Bobo Lim PA [address] [facility] [address] [place] [address] Physician Glass Bulb Machine Adjuster 12/02/23 Andrew Vegas MD [address] [place] [address] [facility] [address] [place] [address] Surgeon Orthopedic Surgery 11/06/23 documented as of this encounter
--- OUTSIDE RECORDS SUMMARY | 2025-06-13 13:27 | XMS_ITS | Encounter Summary ---
Author Organization [facility] Healthcare Address [address] [place] [address] Care Team Providers Care Online Marketing Manager Name Role Phone Bobo Lim Unavailable [phone] Andrew Vegas MD Unavailable [phone] Theodore Farrar MD Primary Care Provider [phone] Encounter Details Date Type Department Care Team (Late st Contact Info) Description 11/23/2024 Cardiology Conference [facility] Non-invasive Cardiac Diagnostic Testing [address] [place] [address] Ramos Negro RN Social History Tobacco Use Types Packs/Day Years Used Date Smoking Tobacco: Never Smokeless Tobacco: Never Alcohol Use Standard Drinks/Week Comments No 0 (1 standard drink = 0.6 oz pur e alcohol) [facility] Utilities Answer Date Recorded In the past 12 months has [employer], gas, oil, or water [employer] threatened to shut off services in your [...] week 11/04/2023 How often do you attend [facility] or worship services? 1 to 4 times per year 11/04/2023 Do you belong to any clubs o r organizations such as hoahaoism groups, unions, fraternal or athletic groups, or [...] place to sleep or slept in a assisted (including now)? No 11/04/2023 Personal Safety Answer Date Recorded Have you ever been in or are you currently in a harmful physical or emotional relationship or is someone making you feel afraid or unsafe? Denies 11/03/2023 Comments No Sex and Gender Information Value Date Recorded Sex Assigned at Not on file Legal Sex Female 10:51 AM BATCH HEAT TREAT OPERATOR Gender Identity Female 03/13/2020 12:13 PM CDT Sexual Orientation Not on file documented as of this encounter Plan of Treatment Not on file documented as of this encounter Visit Diagnoses Not on filedocumented in this encounter Care Teams Online Marketing Manager Relationship Specialty Start Date End Date Theodore Farrar MD [address] [place] [address] PCP - General Family Practice 11/06/24 Bobo Lim PA [address] [facility] [address] [place] [address] Physician Home Demonstration Agent 12/02/23 Andrew Vegas MD [address] [place] [address] [facility] [address] [place] [address] Surgeon Orthopedic Surgery 11/06/23 documented as of this encounter
--- OUTSIDE RECORDS SUMMARY | 2025-06-13 13:28 | XMS_ITS | Encounter Summary ---
Author Organization [facility] Healthcare Address [address] [place] [address] Care Team Providers Care Medical Assistant Ob Gyn Name Role Phone Bobo Lim Unavailable [phone] Andrew Vegas MD Unavailable [phone] Odell Kinney DO Primary Care Provider [phone] Theodore Farrar MD Primary Care Provider [phone] Encounter Details Date Type Department Care Team (Late st Contact Info) Description 10/09/2024 Orders Only [facility] [address] [place] [address] Scanning, Provider Social History Tobacco Use Types Packs/Day Years Used Date Smoking Tobacco: Never Smokeless Tobacco: Never Alcohol Use Standard Drinks/Week Comments No 0 (1 standard drink = 0.6 oz pur e alcohol) [facility] Utilities Answer Date Recorded In the past 12 months has [employer], gas, oil, or water company threatened [...] week 11/04/2023 How often do you attend [facility] or tenriism services? 1 to 4 times per year [...] place to sleep or slept in a fdc (including now)? No 11/04/2023 Personal Safety Answer Date Recorded Have you ever been in or are you currently in a harmful physical or emotional relationship or is someone making you feel afraid or unsafe? 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 Gender Identity Female 03/13/2020 12:13 PM CDT Sexual Orientation Not on file documented as of this encounter Plan of Treatment Not on file documented as of this encounter Procedures Procedure Name Priority Date/Time Associated Diagnosis Comments SCAN - RADIOLOGY/IMAGING 10/09/2024 documented in this encounter Results * SCAN - RADIOLOGY/IMAGING (10/09/2024) Anatomical Region Laterality Modality Other us Provider Scanning Final Result documented in this encounter Visit Diagnoses Not on filedocumented in this encounter Care Teams Medical Assistant Ob Gyn Relationship Specialty Start Date End Date Odell Kinney DO [address] [facility] [address] [place] [address] PCP - General Internal Medicine 04/15/24 11/05/24 Theodore Farrar MD [address] [place] [address] PCP - General Family Practice 11/06/24 Bobo Lim PA [address] [facility] [place] [place] [address] Physician Media Planner / Buyer 12/02/23 Andrew Vegas MD [address] [place] [address] [address] [place] [address] Surgeon Orthopedic Surgery 11/06/23 documented as of this encounter
--- OUTSIDE RECORDS SUMMARY | 2025-06-13 13:28 | XMS_ITS | Clinical Summary ---
Author Organization [facility] [place] [address] [facility] [address] Address [address] [place] [address] Care Team Providers Care Unix System Administrator Name Role Phone Bobo Lim Unavailable [phone] Andrew Vegas MD Unavailable Theodore Farrar MD Primary Care Provider [phone] Allergies No known active allergies Medications PHENobarbital (LUMINAL) 30 mg tablet Take 1 tablet (30 mg total) by mouth 3 (three) times a day 8 Active DILANTIN EXTENDED 100 mg ER capsule Take 1 capsule (100 mg total) by mouth 3 (three) times a day 8 Active multivitamin capsule [...] 1 tablet (75 mcg total) by mouth director digital communications before breakfast 4 Active sotaloL (BETAPACE) 80 mg tablet Take 0.5 tablets (40 mg total) by mouth 2 (two) times a day 30 tablet 11 4 Active carbidopa-levod opa (SINEMET) 25-100 mg per tablet Take 1 tablet by mouth 4 (four) times a day 360 tablet 4 Active cholecalciferol (Vitamin D3) 1,000 unit capsule Take 1 capsule (1,000 Units total) by mouth 2 (two) times a day Active calcium carbonate-vitam in D3 (CALTRATE 600 + D) 1500 mg (600 mg elemental) -400 units per tablet Take 1 tablet by mouth 2 (two) times a day 5 Active cyanocobalamin (Vitamin B-12) 1,000 mcg sublingual tablet 3 (three) times a week MW [address] (PROTONIX) 40 mg EC tabletIndicatio ns:Heartburn Take 1 tablet (40 mg total) by mouth daily 30 tablet 5 03/17/20 26 Active apixaban (ELIQUIS) 5 mg tablet Take 1 tablet (5 mg total) by mouth 2 (two) times a day 60 tablet 11 5 Active furosemide (LASIX) 20 mg tabletIndicatio ns:Edema, lower extremity Take 1 tablet (20 mg total) by mouth daily 30 tablet 5 5 Active meclizine (ANTIVERT) 25 mg tabletIndicatio ns:Dizziness Take 1 tablet (25 mg total) by mouth every 6 (six) hours as needed for dizziness 60 tablet 1 5 Active aspirin 81 mg chewable tabletIndicatio ns:coronary artery disease Take 1 tablet (81 mg total) by mouth daily 30 tablet 11 5 06/03/20 25 Discontinu ed(Alterna te therapy) furosemide (LASIX) 20 mg tablet Take 1 tablet (20 mg total) by mouth daily 30 tablet 5 06/03/20 25 Discontinu ed(Reorder ) Active Problems Problem Noted Date Diagnosed Date Heartburn 03/17/2025 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 Assessment & Plan (09/07/2020 3:18 PM LDR RN): Patient has sided interval improvement with initiation [...] PCP. Assessment & Plan (09/07/2020 3:18 PM LDR RN): Patient's seizures remain controlled on Dilantin treatment. [...] noted. Assessment & Plan (09/07/2020 3:19 PM LDR RN): Patient has chronic right spastic hemiparesis associated [...] (10/21/2018): Added automatically from request for surgery [id number] Hemiplegia and hemiparesis f ollowing cerebral infarction affecting right dominant side 1940 Resolved Problems Problem Noted Date Diagnosed Date Resolved Date Chronic anticoagulation 01/01/2024 06/2 02/2025 Primary osteoarthritis of left hip 10/24/2023 01/01/2024 Encounters Date Type Department Care Team Description 06/03/2025 1:30 PM CDT Office Visit [facility] Medical Group Cardiology [address] [facility] [address] [place] [address] Tatiana Clay NP Dizziness; Edema, lower extremity; Persistent atrial fibrillation (HCC); Presence of Amulet left atrial appendage closure device; On continuous oral anticoagulation 06/02/2025 Telephone [facility] Medical [facility] Cardiology [address] [facility] [address] [place] [address] Deion Marin MD 04/27/2025 Telephone [facility] Cardiology [address] [address] [address] [place] [address] Deion Marin MD 04/25/2025 Telephone [facility] Cardiology [address] [place] [address] [address] [place] [address] Jesse Couch MD 04/25/2025 [place]phone [facility] [address]th [place] [address] [place] [address] Fabricio Vaca MD 04/15/2025 [place]phone [facility] [address] [place] [address] [address]th [place] [address] [place] [address] Fabricio Vaca MD 04/12/2025 [place]phone [facility] [address] [place] [address] 8th [place] [address] [place] [address] Fabricio Vaca MD 04/06/2025 11:45 AM CDT Office Visit [facility] Cardiology [address] [place] [address] [place] [phone] Jesse Couch MD PAF (paroxysmal atrial fibrillation) (HCC) (Primary Dx); Falls frequently; Presence of Amulet left atrial appendage closure device; Mild aortic stenosis; Lipid screening 03/22/2025 Orders Only [facility] Scanning, Provider 03/21/2025 [place]phone [facility] [address] [place] [address] 8th [place] [address] [place] [address] Fabricio Vaca MD 03/18/2025 11:22 AM CDT - 03/18/2025 11:59 PM CDT Hospital Encounter [facility] [address] [place] [address] Fabricio Vaca MD PAF (paroxysmal atrial fibrillation) (HCC) Discharge Disposition: Discharge to home or self care 03/17/2025 11:15 AM CDT Office Visit [facility] Cardiology [address] [place] [address] Deion Marin MD PAF (paroxysmal atrial fibrillation) (HCC) (Primary Dx); Primary hypertension; 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; Premature atrial contractions; Falls frequently; Heartburn from Last 3 Months Immunizations Immunization Administration Dates Next Due ZOSTER Recombinant 02/11/2022 Surgical History Surgery Date Site/Laterality Comments HYSTERECTOMY APPENDECTOMY BREAST SURGERY Left Right TONSILLECTOMY JOINT REPLACEMENT Reverse total shoulder right DILATION AND CURETTAGE OF UTERUS twice TUBAL LIGATION CATARACT EXTRACTION, BILATERAL TOTAL HIP ARTHROPLASTY Left IMPLANTABLE CARDIAC DEVICE 12/09/2024 N/A Procedure: PERC MALINA CLOSE W/IMPLANT [id number]; Surgeon: Jesse Couch MD; 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 1 to 4 times per year 11/04/2023 Do you belong to any clubs o r organizations such as episcopal groups, unions, fraternal or athletic groups, or [...] place to sleep or slept in a chcf (including now)? No 11/04/2023 Personal Safety Answer Date Recorded Have you ever been in or are you currently in a harmful physical or emotional relationship or is someone making you feel afraid or unsafe? Denies 01/13/2025 Comments No Sex and Gender Information Value Date Recorded Sex Assigned at Not on file Legal Sex Female 10:51 AM LDR RN Gender Identity Female 03/13/2020 12:13 PM CDT Sexual Orientation Not on file Obstetrics History Last Filed Vital Signs Vital Sign Reading Time Taken Comments Blood Pressure 128/88 06/03/2025 1:23 PM CDT Pulse 96 06/03/2025 1:23 PM CDT Temperature 36.4 C (97.5 F) 01/13/2025 7:41 AM CDT Respiratory Rate 14 04/06/2025 11:37 AM CDT Oxygen Saturation 99% 06/03/2025 1:23 PM CDT Inhaled Oxygen Concentration - - Weight 65.8 kg (145 lb) 06/03/2025 1:23 PM CDT Height 162.6 cm (5' 4) 06/03/2025 1:23 PM CDT Body Mass Index 24.89 06/03/2025 1:23 PM CDT Plan of Treatment Health Maintenance Due Date Last Done Comments Osteoporosis Screening-Bone Density Scan 1940 DTaP/Tdap/Td Vaccine (1 - Tdap) 12/15/1951 Hepatitis B Screening 1958 Pneumococcal vaccine 65+ (1 of 2 - PCV) 12/15/1959 Well Visit 65+ 2005 Zoster Vaccine (2 of 2) 04/08/2022 02/11/2022 Depression Screening 10/24/2024 10/24/2023 Covid-19 Vaccine ( - season) 2025 08/02/2021, 11/22/2020, 11/01/2020 Influenza Vaccine (#1) 2025 Fall Risk Assessment 01/13/2026 01/13/2025, 10/24/2023, 07/21/2020 Medical Devices Implanted Type Area Charcoal Burner Beehive Kiln Device Identifier Shelf Expiration Date Model / Serial / Lot [employer] [id number] Delta Xtend 27mm Cementless Shoulder Standard Component Glenoid Latex Free - [id number] Implanted:Qty: 1 on 11/25/2018 by Jesse Casas MD at [facility] [employer] [id number] / / [employer] [id number] Delta Xtend 4.5mm 42mm Lock Shoulder Glenoid Screw Bone Metaglene - [id number] Implanted:Qty: 1 on 11/25/2018 by Jesse Casas MD at [facility] [employer] [id number] / / [employer] [id number] Delta Xtend 38mm Glenosphere Shoulder Eccentric Component Glenoid Latex Free - [id number] Implanted:Qty: 1 on 11/25/2018 by Jesse Casas MD at [facility] [employer] [id number] / / [employer] [id number] Delta Xtend 4.5mm 36mm Lock Shoulder Glenoid Screw Bone Metaglene - [id number] Implanted:Qty: 1 on 11/25/2018 by Jesse Casas MD at [facility] [employer] [id number] / / [employer] [id number] Delta Xtend Cementless Modular Shoulder Right Epiphysis 155d 1 Latex Free - [id number] Implanted:Qty: 1 on 11/25/2018 by Jesse Casas MD at [facility] [employer] [id number] / / [employer] [id number] Global Unite 8mm 107mm Modular Shoulder Standard Stem Humeral - [id number] Implanted:Qty: 1 on 11/25/2018 by Jesse Casas MD at [facility] [employer] [id number] / / [employer] [id number] Delta Xtend 38mm Shoulder +6mm Standard Cup Humeral Polyethylene Latex Free - [id number] Implanted:Qty: 1 on 11/25/2018 by Jesse Casas MD at [facility] [employer] [id number] / / [employer] [place] 56mm 36mm Hip Neutral Liner Acetabular Altrx Sterile Latex Free [id number] - [id number] Implanted:Qty: 1 on 11/03/2023 by Andrew Vegas MD at [facility] Left: Hip [employer] 07/22/2028 [id number] / / [id number] [employer] Florence 6.5mm 35mm Acetabular Cancellous Screw Bone Sterile 1217-35-500 - [id number] Implanted:Qty: 1 on 11/03/2023 by Andrew Vegas MD at [facility] Left: Hip [employer] 07/22/2033 1217-35-500 / / [id number] [employer] Actis Collar Hip 7 High Offset Stem Femoral [id number] - [id number] Implanted:Qty: 1 on 11/03/2023 by Andrew Vegas MD at [facility] Left: Hip [employer] 12/20/2032 [id number] / / [id number] [employer] Articul/Jamel 36mm Cementless Hip +1.5mm /14 Taper Head Femoral Latex Free [id number] - [id number] Implanted:Qty: 1 on 11/03/2023 by Andrew Vegas MD at [facility] Left: Hip [employer] 08/21/2028 [id number] / / [id number] [employer] [place] 56mm Sector Hip Shell Acetabular Gription Sterile Latex Free [id number] - [id number] Implanted:Qty: 1 on 11/03/2023 by Andrew Vegas MD at [facility] Left: Hip [employer] 03/21/2033 [id number] / / [id number] [employer] System Closure Repair Femoral Artery Suture Mediated Perclose Prostyle 08604-04 - [id number] Implanted:Qty: 1 on 12/09/2024 by Jesse Couch MD at [facility] [employer] 10/22/2026 [id number] / / [id number] [employer] System Closure Repair Femoral Artery Suture Mediated Perclose Prostyle 67042-88 - [id number] Implanted:Qty: 1 on 12/09/2024 by Jesse Couch MD at [facility] [employer] 09/21/2026 [id number] / / [id number] [employer] Occluder Cvasc Malina Flexible Braided Amplatzer Amulet 25mm Nitinol [id number] - [id number] Implanted:Qty: 1 on 12/09/2024 by Jesse Couch MD at [facility] 06/21/2029 9-[id number] [id number] / / [id number] Explanted Type Area Charcoal Burner Beehive Kiln Device Identifier Shelf Expiration Date Model / Serial / Lot [employer] [id number] Steinmann 3/32in 9in 2 Trocar Pin Fixation Nonsterile - [id number] Explanted:Qty: 1 on 11/25/2018 at [facility] [employer] [id number] / / Procedures Procedure Name Priority Date/Time Associated Diagnosis Comments POCT LIPID PANEL Routine 04/06/2025 11:27 AM CDT Lipid screening ELECTROCARDIOGRAM REPORT Routine 04/06/2025 Presence of Amulet left atrial appendage closure device CARDIOLOGY DOCUMENT SCAN 03/22/2025 CT HEART MORPHOLOGY W CONTRAST Schedule Routine, Read Routine (OP Routine) 03/18/2025 12:42 PM CDT PAF (paroxysmal atrial fibrillation) (HCC) from Last 3 Months Results * POCT lipid panel (04/06/2025 11:27 AM CDT) Cholesterol, POC 180 <200 MG/DL HDL, POC 55 >=40 mg/dL Triglycerides, POC 122 <=149 mg/dL LDL Cholesterol POC 100 <=129 mg/dL Chol/HDL Ratio, POC 1.8 NONE Non-HDL Cholesterol, POC 125 NONE mg/dL Cholesterol Total, POC 180 30 - 199 mg/dL Capillary blood 04/06/2025 1 1:27 AM CDT Jesse Couch MD POINT OF CARE TEST ORDERABLES Fi nal Result * Electrocardiogram Report (04/06/2025) 04/06/2025 us Jesse Couch MD ECG ORDERABLES Edited Result - Final * Cardiology Document Scan (03/22/2025) Anatomical Region Laterality Modality Other us Provider Scanning CV CARDIAC SERVICES PROCEDURES Edited Result - Final * CT Heart Morphology W Contrast (03/18/2025 12:42 PM CDT) Anatomical Region Laterality Modality Chest N/A Computed Tomogra phy 03/18/2025 2:20 PM CDT Impressions 03/18/2025 2:50 PM CDT Interval placement of left atrial appendage occluder device with persistent opacification of the distal left atrial appendage. Dictated by: Cass Quinones MD The radiology attending physician has personally reviewed this study, and had reviewed and/or edited this written report and agrees with it. Electronically signed by: Christelle Del Cid M.D. Narrative 03/18/2025 2:50 PM CDT EXAMINATION: CT HEART MORPHOLOGY W CONTRAST HISTORY: 84-year-old female with atrial fibrillation status post placement of left atrial appendage occluder. TECHNIQUE: Heart CT performed during administration of 93 mL of Optiray 350, intravenously per pulmonary vein protocol. Images were transferred to an independent workstation for additional 3D post-processing. COMPARISON: CT heart 11/12/2024 FINDINGS: There is been interval placement of a left atrial appendage occlusion device. There is opacification of the left atrial appendage distal to the occluder. There is filling defect along the occluder within the left atrial appendage which may reflect nonmetallic portion of the device with small amount of thrombus, the surface of the occluder facing the left atrium is free of thrombus. Normal caliber thoracic aorta with scattered atherosclerotic calcifications. Normal caliber main pulmonary artery. Heart size is moderately enlarged with biatrial enlargement. Mild mitral annular calcifications. Multivessel coronary artery disease. No pericardial effusion. No thoracic lymphadenopathy. Normal thyroid. Nondistended esophagus with small hiatal hernia. Central airways widely patent. No pulmonary consolidation, pleural effusion, or pneumothorax. Mild dependent atelectasis. Partially imaged upper abdomen noncontributory. Scoliotic curvature of the spine with multilevel degenerative changes. Right shoulder arthroplasty. No suspicious osseous lesion. Procedure Note Christelle Del Cid MD - 03/18/2025 EXAMINATION: CT HEART MORPHOLOGY W CONTRAST HISTORY: 84-year-old female with atrial fibrillation status post placement of left atrial appendage occluder. TECHNIQUE: Heart CT performed during administration of 93 mL of Optiray 350, intravenously per pulmonary vein protocol. Images were transferred to an independent workstation for additional 3D post-processing. COMPARISON: CT heart 11/12/2024 FINDINGS: There is been interval placement of a left atrial appendage occlusion device. There is opacification of the left atrial appendage distal to the occluder. There is filling defect along the occluder within the left atrial appendage which may reflect nonmetallic portion of the device with small amount of thrombus, the surface of the occluder facing the left atrium is free of thrombus. Normal caliber thoracic aorta with scattered atherosclerotic calcifications. Normal caliber main pulmonary artery. Heart size is moderately enlarged with biatrial enlargement. Mild mitral annular calcifications. Multivessel coronary artery disease. No pericardial effusion. No thoracic lymphadenopathy. Normal thyroid. Nondistended esophagus with small hiatal hernia. Central airways widely patent. No pulmonary consolidation, pleural effusion, or pneumothorax. Mild dependent atelectasis. Partially imaged upper abdomen noncontributory. Scoliotic curvature of the spine with multilevel degenerative changes. Right shoulder arthroplasty. No suspicious osseous lesion. IMPRESSION: Interval placement of left atrial appendage occluder device with persistent opacification of the distal left atrial appendage. Dictated by: Cass Quinones MD The radiology attending physician has personally reviewed this study, and had reviewed and/or edited this written report and agrees with it. Electronically signed by: Christelle Del Cid M.D. Fabricio Vaca MD IMG CT PROCEDURES Final Result from Last 3 Months Insurance [employer] MEDIC[employer] [facility] MEDICARE [facility] MEDICARE Advance Directives For more information, please contact: [phone] Documents on File Type Date Recorded Patient Landscape Supervisor Expl anation ADVANCE DIRECTIVE 12/01/2018 4:58 AM POWER OF ENVIRONMENTAL FIELD PROFESSIONAL-MEDICAL * Full Code (Latest Code Status on File) Date Activated Date Inactivated Comments 11/03/2023 12:28 PM 11/07/2023 5:32 PM * Full Code Date Activated Date Inactivated Comments 11/25/2018 2:08 PM 11/28/2018 7:12 PM Care Teams Unix System Administrator Relationship Specialty Start Date End Date Theodore Farrar MD [address] [place], [place] [id number] PCP - General Family Practice 11/06/24 Bobo Lim PA [address] [facility] [address] [place] [address] Physician Customs Officer 12/02/23 Andrew Vegas MD [address] [place] [address] [facility] [address] [place] [address] Surgeon Orthopedic Surgery 11/06/23
--- OUTSIDE RECORDS SUMMARY | 2025-06-13 13:28 | XMS_ITS | Encounter Summary ---
Author Organization [facility] Healthcare Address [address] [place] [address] Care Team Providers Care Nurse Monitoring Name Role Phone Bobo Lim Unavailable Andrew Vegas MD Unavailable Theodore Farrar MD Primary Care Provider [phone] Encounter Details Date Type Department Care Team (Late st Contact Info) Description 06/02/2025 Telephone [facility] Medical Group Cardiology [address] [place] [address] Deion Marin MD [address] [facility] [address] [place] [address] Social History Tobacco Use Types Packs/Day Years Used Date Smoking Tobacco: Never Smokeless Tobacco: Never Alcohol Use Standard Drinks/Week Comments No 0 (1 standard drink = 0.6 oz pur e alcohol) [facility] Utilities Answer Date Recorded In the past 12 months has [employer] electric, gas, oil, or water company threatened [...] any clubs o r organizations such as taoist groups, unions, fraternal or athletic groups, or [...] on file 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 She takes Lasix 20 mg prn and reports she feels swollen but no indentation when she pushes on her legs/feet. Afternoon B/Pwas 122/78 and HR in 110's which she said is normal for her. States she just doesn't feel right andwants to address this now because I don't want to be shocked again. Pt denies falling, states that she was on her knees putting things away and had difficulty getting up from the ground. Appt givenwith Tatiana for tomorrow afternoon. * Telephone Encounter - Anya Anderson - 06/02/2025 2:30 PM CDT Pt called to report she has been dizzy the past couple days. Reports BP today is 122/80 and 120/78 with HR of 108 and 122. States she fell on her knees twice in the past two weeks. States her feet are swollen. States she does not want to go to ED. Requesting call to discuss. Contact: documented in this encounter Plan of Treatment Not on file documented as of this encounter Visit Diagnoses Not on filedocumented in this encounter Care Teams Nurse Monitoring Relationship Specialty Start Date End Date Theodore Farrar MD [address] [place] [address] PCP - General Family Practice 11/06/24 Bobo Lim PA [address] [facility] [address] [place] [address] Physician Metal Products Viewer 12/02/23 Andrew Vegas MD [address] [place] [address] [address] [place] [address] Surgeon Orthopedic Surgery 11/06/23 documented as of this encounter
--- OUTSIDE RECORDS SUMMARY | 2025-06-13 13:28 | XMS_ITS | Encounter Summary ---
Author Organization [facility] Healthcare Address [address] [place] [address] Care Team Providers Care Physicist Solid State Name Role Phone Bobo Lim Unavailable [phone] Andrew Vegas MD Unavailable [phone] Theodore Farrar MD Primary Care Provider [phone] Encounter Details Date Type Department Care Team (Late st Contact Info) Description 12/27/2024 Orders Only [facility] [place] Health Information Management [address] [place] [address] Scanning, Provider Social History Tobacco Use Types Packs/Day Years Used Date Smoking Tobacco: Never Smokeless Tobacco: Never Alcohol Use Standard Drinks/Week Comments No 0 (1 standard drink = 0.6 oz pur e alcohol) [facility] Utilities Answer Date Recorded In the past 12 months has [employer], gas, oil, or water [employer] threatened to shut off services in your [...] often do you attend chur ch or evangelical services? 1 to 4 times per year [...] place to sleep or slept in a custodial (including now)? No 11/04/2023 Personal Safety Answer Date Recorded Have you ever been in or are you currently in a harmful physical or emotional relationship or is someone making you feel afraid or unsafe? 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 Gender Identity Female 03/13/2020 12:13 PM CDT Sexual Orientation Not on file documented as of this encounter Plan of Treatment Not on file documented as of this encounter Procedures Procedure Name Priority Date/Time Associated Diagnosis Comments SCAN - RADIOLOGY/IMAGING 12/27/2024 documented in this encounter Results * SCAN - RADIOLOGY/IMAGING (12/27/2024) Anatomical Region Laterality Modality Other us Provider Scanning Final Result documented in this encounter Visit Diagnoses Not on filedocumented in this encounter Care Teams Physicist Solid State Relationship Specialty Start Date End Date Theodore Farrar MD [address] [place] [address] PCP - General Family Practice 11/06/24 Bobo Lim PA [address] [facility] [address] [place] [address] Physician Resident Medical Officer 12/02/23 Andrew Vegas MD [address] [place] [address] [facility] [address] [place] [address] Surgeon Orthopedic Surgery 11/06/23 documented as of this encounter
--- OUTSIDE RECORDS SUMMARY | 2025-06-13 13:28 | XMS_ITS | Patient Health Record ---
Author Organization [facility] Address [address] [place], [place] [id number] Care Team Providers Care Building Stonecutter Name Role Phone CARI ELINOR Unavailable [phone] Theodore Farrar Unavailable Unavailable ELINOR CLEVELAND Unavailable [phone] Allergies No Known Allergies Reason For Referral No Information Medications Medication SIG (Take, Route, Frequency, Duration) Notes Start Date End Date Status Plavix Active Aspirin 81 Active Vital Signs Height-cm 170.18 cm 06/06/2025 Weight-kg 58.97 kg 06/06/2025 Height 67.00 in 06/06/2025 Weight 130 lbs 06/06/2025 BMI 20.36 kg/m2 06/06/2025 Encounters Encounter Location Date Provider Diagnosis [facility] [address] [place] [address] [id number] 06/06/2025 ELINOR SCHULTZ Tinea unguium B35.1 ; Pain in right foot M79.671 ; Pain in left foot M79.672 ; Atherosclerosis of [place] arteries of extremities with intermittent claudication, bilateral legs I70.213 and Acquired keratosis [keratoderma] palmaris et plantaris L85.1 [facility] [address] [place] [address] [id number] 07/15/2024 ELINOR CLEVELAND Onychomycosis B35.1 ; Pain in right toe(s) M79.674 ; Pain in left toe(s) M79.675 and Unspecified atherosclerosis of [place] arteries of extremities, bilateral legs I70.203 [facility] [address] [place] [address] [id number] 07/29/2024 ELINOR CLEVELAND Onychomycosis B35.1 ; 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 ; Pain in right toe(s) M79.674 ; Pain in left toe(s) M79.675 and Unspecified atherosclerosis of [place] arteries of extremities, bilateral legs I70.203 [facility] [address] [place] [address] [id number] 09/16/2024 ELINOR CLEVELAND Onychomycosis B35.1 ; Pain in right toe(s) M79.674 ; Pain in left toe(s) M79.675 and Unspecified atherosclerosis of [place] arteries of extremities, bilateral legs I70.203 [facility] [address] [address] [place] [address] [id number] 11/29/2024 ELINOR SNOOK Tinea unguium B35.1 ; Pain in right foot M79.671 ; Pain in left foot M79.672 ; Atherosclerosis of [place] arteries of extremities with intermittent claudication, bilateral legs I70.213 and Acquired keratosis [keratoderma] palmaris et plantaris L85.1 [facility] [address] [place] [address] [id number] 01/31/2025 ELINOR SNOOK Tinea unguium B35.1 ; Pain in right foot M79.671 ; Pain in left foot M79.672 ; Atherosclerosis of [place] arteries of extremities with intermittent claudication, bilateral legs I70.213 and Acquired keratosis [keratoderma] palmaris et plantaris L85.1 [facility] [address] [place] [address] [id number] 04/04/2025 ELINOR SNOOK Tinea unguium B35.1 ; Pain in right foot M79.671 ; Pain in left foot M79.672 ; Atherosclerosis of [place] arteries of extremities with intermittent claudication, bilateral legs I70.213 and Acquired keratosis [keratoderma] palmaris et plantaris L85.1 Assessments Encounter Date Diagnosis (ICD Code) Assessment Notes Treatment Notes Treatment Clinical Notes Section Notes 07/15/2024 Onychomycosis (ICD-10 - B35.1) 07/29/2024 Non-pressure [...] Pain in right foot (ICD-10 - M79.671) 01/31/2025 Tinea unguium (ICD-10 - B35.1) Nails 1-5 Bilateral were debrided extensively with nail nippers and emery board, reducing length and girth to pink healthy tissue with any subungual debris and necrotic tissue removed 01/31/2025 Pain in right foot (ICD-10 - M79.671) 04/04/2025 Tinea unguium (ICD-10 - B35.1) Nails 1-5 Bilateral were debrided extensively with nail nippers and emery board, reducing length and girth to pink healthy tissue with any subungual debris and necrotic tissue removed 04/04/2025 Pain in right foot (ICD-10 - M79.671) 06/06/2025 Tinea unguium (ICD-10 - B35.1) Nails 1-5 Bilateral were debrided extensively with nail nippers and emery board, reducing length and girth to pink healthy tissue with any subungual debris and necrotic tissue removed 06/06/2025 Pain in right foot (ICD-10 - M79.671) 06/06/2025 Pain in left foot (ICD-10 - M79.672) 04/04/2025 Pain in left foot (ICD-10 - M79.672) 01/31/2025 Pain in left foot (ICD-10 - M79.672) 11/29/2024 Pain in left foot (ICD-10 - M79.672) 09/16/2024 Pain in right toe(s) (ICD-10 - M79.674) 07/29/2024 Pain in right toe(s) (ICD-10 - M79.674) 07/15/2024 Pain in right toe(s) (ICD-10 - M79.674) 07/15/2024 Pain in left toe(s) (ICD-10 - M79.675) 07/29/2024 Pain in left toe(s) (ICD-10 - M79.675) 09/16/2024 Pain in left toe(s) (ICD-10 - M79.675) 11/29/2024 Atherosclerosis of [place] arteries of extremities with intermittent claudication, bilateral legs (ICD-10 - I70.213) 01/31/2025 Atherosclerosis of [place] arteries of extremities with intermittent claudication, bilateral legs (ICD-10 - I70.213) 04/04/2025 Atherosclerosis of [place] arteries of extremities with intermittent claudication, bilateral legs (ICD-10 - I70.213) 06/06/2025 Atherosclerosis of [place] arteries of extremities with intermittent claudication, bilateral legs (ICD-10 - I70.213) 06/06/2025 Acquired keratosis [keratoderma] palmaris et plantaris (ICD-10 - L85.1) A total of 2 corns or calluses, as described in the note above, were cut and pared utilizing a #15 blade 04/04/2025 Acquired keratosis [keratoderma] palmaris et plantaris (ICD-10 - L85.1) A total of 2 corns or calluses, as described in the note above, were cut and pared utilizing a #15 blade 01/31/2025 Acquired keratosis [keratoderma] palmaris et plantaris (ICD-10 - L85.1) A total of 2 corns or calluses, as described in the note above, were cut and pared utilizing a #15 blade 11/29/2024 Acquired keratosis [keratoderma] palmaris et plantaris (ICD-10 - L85.1) A total of 2 corns or calluses, as described in the note above, were cut and pared utilizing a #15 blade 09/16/2024 Unspecified atherosclerosis of [place] arteries of extremities, bilateral legs (ICD-10 - I70.203) 07/29/2024 Unspecified atherosclerosis of [place] arteries of extremities, bilateral legs (ICD-10 - I70.203) 07/15/2024 Unspecified atherosclerosis of [place] arteries of extremities, bilateral legs (ICD-10 - [...] Name:ELINOR ANTOINE, 02:20:00 PM, [address], [facility], [place], [place], [id number], Insurance Providers Payer Name Payer Address Payer Phone Subscriber Number Group Number Insured Name Patient Relationship to Insured Coverage Start Date Coverage End Date Medicare Part B [facility] [place], operated by [facility] [address] [place] [address] [id number] PRESLEY BRISCOE Self - patient is the insured [employer] [facility] [place] [address] [id number] PRESLEY BRISCOE Self - patient is the insured Medical (General) History Medical History History ICD Code Parkinson's disease osteoporosis
== END 2025-06-13 13:00 | disposition home or self-care (01) ==
LOC: ANHFOHIMG 13:01
PROVIDERS: PCP Family Medicine; Visit Provider Family Medicine
DX: M81.0 Age-related osteoporosis without current pathological fracture (principal); M85.88 Other specified disorders of bone density and structure, other site; M85.851 Other specified disorders of bone density and structure, right thigh
CPT/HCPCS: 77080

== ENCOUNTER 2025-07-07 15:08 | Outpatient (CLI) | payer MEDICARE, OTHER, MEDICAID, SELFPAY ==
--- OUTSIDE RECORDS SUMMARY | 2017-08-05 19:00 | XMS_ITS | Continuity of Care Document ---
Author Organization [facility] Address [address] [place] [phone] Phone Care Team Providers Care Mold Capper Helper Name Role Phone RCM, Rendering Unavailable Unavailable Allergies, Adverse Reactions, Alerts Substance Reaction Status Criticality No Known Allergies Active No Inform ation Advance Directives Directive Yes / No Effective Date File Name No Information Encounters Encounter Description Practice Location Reason(s) For Visit Diagnoses Date Provider Providers Copied on Encounter [facility] , [address] [place] [address], [id number], tel:[phone] [facility] Location Presence of intraocular lensPunctate keratitis, bilateralOpen angle with borderline findings, low risk, bilateralOther secondary cataract, right eye 7 RCM Rendering . [address] [place] [address], [id number], [place]. tel: [phone] [facility] , [address] [place] [address], [id number], tel:[phone] [facility] Location Regular astigmatism, bilateralAge-rela may reticular degeneration of retina, bilateralMacular cyst, hole, or pseudohole, right eye 201 5 R[facility] R[facility] . [address] [place] [address], [id number], [place]. tel: [phone] Family History Family Member Type Diagnosis Age At Onset No Information Payers Payer name Insurance type Covered green party ID Authoriza tion(s) No Information Social [...]
--- NOTE | ~2025-07-07 | XR_ITS ---
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 COMPARISON: No comparisons available. Findings: No osseous destruction or fracture is identified Severe degenerative changes of the first metatarsal phalangeal joint with small erosions. Soft tissues unremarkable. Impression: No acute fracture or malalignment. Reviewed, dictated and finalized at location P. Impression: No acute fracture or malalignment.
--- OUTSIDE RECORDS SUMMARY | 2025-07-07 17:20 | XMS_ITS | Encounter Summary ---
Author Organization [facility] Healthcare Address [address] [place] [address] Care Team Providers Care Actuarial Internship Name Role Phone Bobo Lim Unavailable [phone] Andrew Vegas MD Unavailable [phone] Theodore Farrar MD Primary Care Provider [phone] Encounter Details Date Type Department Care Team (Late st Contact Info) Description 12/27/2024 Orders Only [facility] [place] Management [address] [place] [address] Scanning, Provider Social History Tobacco Use Types Packs/Day Years Used Date Smoking Tobacco: Never Smokeless Tobacco: Never Alcohol Use Standard Drinks/Week Comments No 0 (1 standard drink = 0.6 oz pur e alcohol) [facility] Utilities Answer Date Recorded In the past 12 months has [employer], gas, oil, or water [employer] threatened to shut off services in your [...] any clubs o r organizations such as restorationist groups, unions, fraternal or athletic groups, or [...] on file Legal 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
--- OUTSIDE RECORDS SUMMARY | 2025-07-07 17:20 | XMS_ITS | Clinical Summary ---
Author Organization [facility] [address] [facility] [address] Address [address] [place] [address] Care Team Providers Care Surveyor Name Role Phone Bobo Lim Unavailable [phone] Andrew Vegas MD Unavailable [phone] Theodore Farrar MD Primary Care Provider [phone] Allergies No known active allergies Medications PHENobarbital [...] 1 tablet (75 mcg total) by mouth sld teacher before breakfast 4 Active sotaloL (BETAPACE) 80 mg tablet Take 0.5 tablets (40 mg total) by mouth 2 (two) times a day 30 tablet 11 4 Active carbidopa-levod opa (SINEMET) 25-100 mg per tablet Take 1 tablet by mouth 4 (four) times a day 360 tablet 1 4 Active cholecalciferol (Vitamin D3) 1,000 unit [...] by mouth daily 30 tablet 11 5 03/17/20 26 Active apixaban (ELIQUIS) 5 [...] for dizziness 60 tablet 1 5 Active Active Problems Problem Noted Date Diagnosed [...] year. Assessment & Plan (09/07/2020 3:18 PM RADIO PROGRAM CHECKER): Patient has sided interval improvement with initiation [...] PCP. Assessment & Plan (09/07/2020 3:18 PM RADIO PROGRAM CHECKER): Patient's seizures remain controlled on Dilantin treatment. [...] noted. Assessment & Plan (09/07/2020 3:19 PM RADIO PROGRAM CHECKER): Patient has chronic right spastic hemiparesis associated [...] (10/21/2018): Added automatically from request for surgery [id number] Hemiplegia and hemiparesis f ollowing cerebral infarction affecting right dominant side 1940 Resolved Problems Problem Noted Date Diagnosed Date Resolved Date Chronic anticoagulation 01/01/202402/21 Primary osteoarthritis of left hip 10/24/2023 01/01/2024 Encounters Date Type Department Care Team Description 06/21/2025 Telephone [facility] Medicine Cardiology [address] [facility] Advanced Medicine 8th [place] [address] [place] [address] Fabricio Vaca MD 06/21/2025 Telephone [facility] Cardiology [address] [place] [address] Deion Marin MD pacemaker 06/16/2025 Telephone [facility] Cardiology [address] [place] [address] Deion Marin MD 06/14/2025 10:33 AM CDT - 06/14/2025 11:59 PM CDT Hospital Encounter [facility] [address] [place] [address] Fabricio Vaca MD Presence of Amulet left atrial appendage closure device; PAF (paroxysmal atrial fibrillation) Discharge Disposition: Discharge to home or self care 06/03/2025 1:30 PM CDT Office Visit [facility] Cardiology [address] [place] [address] [place] [address] Tatiana Clay NP Dizziness; Edema, lower extremity; Persistent atrial fibrillation (HCC); Presence of Amulet left atrial appendage closure device; On continuous oral anticoagulation 06/02/2025 Telephone [place] [address] [place] [address] Deion Marin MD 04/27/2025 Telephone [place] [address] [place] [address] Deion Marin MD 04/25/2025 Telephone [place] [address] [place] [address] Jesse Couch MD 04/25/2025 Telephone [facility] Cardiology [facility] Advanced Medicine 8th [place] [address] [place] [address] Fabricio Vaca MD 04/15/2025 Telephone [facility] Cardiology [facility] Advanced [facility] 8th [place] [address] [place] [address] Fabricio Vaca MD 04/12/2025 Telephone [facility] Cardiology [address] [place] [address] Medicine 8th [place] [address] [place] [address] Fabricio Vaca MD 04/06/2025 11:45 AM CDT Office Visit [place] [address] [place] [phone] Jesse Couch MD PAF (paroxysmal atrial fibrillation) (HCC) (Primary Dx); Falls frequently; Presence of Amulet left atrial appendage closure device; Mild aortic stenosis; Lipid screening from Last 3 Months Immunizations Immunization Administration Dates Next Due ZOSTER Recombinant 02/11/2022 Surgical History Surgery Date Site/Laterality Comments HYSTERECTOMY APPENDECTOMY BREAST SURGERY Left Right TONSILLECTOMY JOINT REPLACEMENT Reverse total shoulder right DILATION AND CURETTAGE OF UTERUS twice TUBAL LIGATION CATARACT EXTRACTION, BILATERAL TOTAL HIP ARTHROPLASTY Left IMPLANTABLE CARDIAC DEVICE 12/09/2024 N/A Procedure: PERC MALINA CLOSE W/IMPLANT [id number]; Surgeon: Jesse Couch MD; 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 1 to 4 times per year [...] place to sleep or slept in a detention (including now)? No 11/04/2023 Personal Safety Answer Date Recorded Have you ever been in or are you currently in a harmful physical or emotional relationship or is someone making you feel afraid or unsafe? Denies 01/13/2025 Comments No Sex and Gender Information Value Date Recorded Sex Assigned at Not on file Legal Sex Female 10:51 AM RADIO PROGRAM CHECKER Gender Identity Female 03/13/2020 12:13 PM CDT [...] Screening 10/24/2024 10/24/2023 Covid-19 Vaccine ( - 2024- season) 2025 08/02/2021, 11/22/2020, 11/01/2020 Influenza Vaccine (#1) 2025 Fall Risk Assessment 01/13/2026 01/13/2025, 10/24/2023, 07/21/2020 Medical Devices Implanted Type Area Catalogue Clerk Device Identifier Shelf Expiration Date Model / Serial / Lot DepCinemur Orth[employer] Inc [id number] Delta Xtend 27mm Cementless Shoulder Standard Component Glenoid Latex Free - [id number] Implanted:Qty: 1 on 11/25/2018 by Jesse Casas MD at [facility] [employer] [id number] / / [employer] [id number] Delta Xtend 4.5mm 42mm Lock Shoulder Glenoid Screw Bone Metaglene - [id number] Implanted:Qty: 1 on 11/25/2018 by Jesse Casas MD at [facility] [employer] [id number] / / Dep[employer] [id number] Delta Xtend 38mm Glenosphere Shoulder Eccentric Component Glenoid Latex Free - [id number] Implanted:Qty: 1 on 11/25/2018 by Jesse Casas MD at [facility] [employer] [id number] / / [employer] [id number] Delta Xtend 4.5mm 36mm Lock Shoulder Glenoid Screw Bone Metaglene - [id number] Implanted:Qty: 1 on 11/25/2018 by Jesse Casas MD at [facility] [employer] [id number] / / [employer] [id number] Delta Xtend Cementless Modular Shoulder Right Epiphysis 155d 1 Latex Free - [id number] Implanted:Qty: 1 on 11/25/2018 by Jesse Casas MD at [facility] [employer] [id number] / / [employer] [id number] Global Unite 8mm 107mm Modular Shoulder Standard Stem Humeral - [id number] Implanted:Qty: 1 on 11/25/2018 by Jesse Casas MD at [facility] [employer] [id number] / / [employer] [id number] Delta Xtend 38mm Shoulder +6mm Standard Cup Humeral Polyethylene Latex Free - [id number] Implanted:Qty: 1 on 11/25/2018 by Jesse Casas MD at [facility] [employer] [id number] / / [employer] Mohawk 56mm 36mm Hip Neutral Liner Acetabular Altrx Sterile Latex Free [id number] - [id number] Implanted:Qty: 1 on 11/03/2023 by Andrew Vegas MD at [facility] Left: Hip [employer] 07/22/2028 [id number] / / [id number] [employer] Mohawk 6.5mm 35mm Acetabular Cancellous Screw Bone Sterile 1217-35500 - [id number] Implanted:Qty: 1 on 11/03/2023 by Andrew Vegas MD at [facility] Left: Hip [employer] 07/22/2033 1217-35-500 / / [id number] [employer] Actis Collar Hip 7 High Offset Stem Femoral [id number] - [id number] Implanted:Qty: 1 on 11/03/2023 by Andrew Vegas MD at [facility] Left: Hip [employer] 12/20/2032 [id number] / / [id number] [employer] Articul/Jamel 36mm Cementless Hip +1.5mm 12/14 Taper Head Femoral Latex Free [id number] - [id number] Implanted:Qty: 1 on 11/03/2023 by Andrew Vegas MD at [facility] Left: Hip [employer] 08/21/2028 [id number] / / [id number] [employer] Mohawk 56mm Sector Hip Shell Acetabular Gription Sterile Latex Free [id number] - [id number] Implanted:Qty: 1 on 11/03/2023 by Andrew Vegas MD at [facility] Left: Hip [employer] 03/21/2033 [id number] / / [id number] [employer] System Closure Repair Femoral Artery Suture Mediated Perclose Prostyle 61782-70 - [id number] Implanted:Qty: 1 on 12/09/2024 by Jesse Couch MD at [facility] [employer] 10/22/2026 [id number] / / [id number] [employer] System Closure Repair Femoral Artery Suture Mediated Perclose Prostyle 69897-09 - [id number] Implanted:Qty: 1 on 12/09/2024 by Jesse Couch MD at [facility] [employer] 09/21/2026 70432-51 / / [id number] [employer] Occluder Cvasc Malina Flexible Braided Amplatzer Amulet 25mm Nitinol 9-Csd0-150-025 - [id number] Implanted:Qty: 1 on 12/09/2024 by Jesse Couch MD at [facility] 06/21/2029 9-ACP2-01 0-0 25 / / [id number] Explanted Type Area Catalogue Clerk Device Identifier Shelf Expiration Date Model / Serial / Lot ActimagineairSyntropharma Surgical Instruments [id number] Ramon 3/32in 9in 2 Trocar Pin Fixation Nonsterile - [id number] Explanted:Qty: 1 on 11/25/2018 at [facility] [employer] [id number] / / Procedures Procedure Name Priority Date/Time Associated Diagnosis Comments CT HEART MORPHOLOGY W CONTRAST Schedule Routine, Read Routine (OP Routine) 06/14/2025 12:07 PM CDT Presence of Amulet left atrial appendage closure device PAF (paroxysmal atrial fibrillation) POCT LIPID PANEL Routine 04/06/2025 11:27 AM CDT Lipid screening ELECTROCARDIOGRAM REPORT Routine 04/06/2025 Presence of Amulet left atrial appendage closure device from Last 3 Months Results * CT Heart Morphology W Contrast (06/14/2025 12:07 PM CDT) Anatomical Region Laterality Modality Chest N/A Computed Tomogra phy 06/14/2025 1:40 PM CDT Impressions 06/14/2025 5:58 PM CDT 1. Unchanged configuration of the left atrial appendage occluder device with persistent flow into the left atrial appendage. 2. Unchanged bilateral pulmonary nodules. Consider follow-up CT in one year if indicated. Dictated by: Alex Martínez M.D. The radiology attending physician has personally reviewed this study, and had reviewed and/or edited this written report and agrees with it. Electronically signed by: Leonardo Escobar M.D. Narrative 06/14/2025 5:58 PM CDT EXAMINATION: CT HEART MORPHOLOGY W CONTRAST HISTORY: Arrythmia. TECHNIQUE: Heart CT performed during administration of 100 mL of Optiray 350, intravenously per pulmonary vein protocol. Images were transferred to an independent workstation for additional 3D post-processing. FINDINGS: Left atrial appendage: Occluder device present with left atrial appendage opacification similar to prior. Portion of occluder disc appears to extend into the left atrial lumen, in unchanged configuration when compared with the prior CT from 03/18/2025. No thrombus is seen on the left atrial side of the device There is No evidence of left atrial appendage thrombus. Interatrial septum measures 5 mm thick and is free of device or thrombus. Esophagus lies immediately posterior to the left atrium in the midline. Other findings: Left atrial enlargement. No pericardial effusion. Small hiatal hernia. Again see cystic lesion in the right upper lobe measures 7mm, unchanged. Unchanged solid pulmonary nodule at the left lower lobe measures 0.6 cm (series 8 image 153). Dependent bibasilar atelectasis. Clear central airways. No pleural effusion or pneumothorax. Multilevel degenerative changes of the visualized spine. Right shoulder prostheses. Included images of the upper abdomen appears unremarkable. Procedure Note Leonardo Escobar MD - 06/14/2025 EXAMINATION: CT HEART MORPHOLOGY W CONTRAST HISTORY: Arrythmia. TECHNIQUE: Heart CT performed during administration of 100 mL of Optiray 350, intravenously per pulmonary vein protocol. Images were transferred to an independent workstation for additional 3D post-processing. FINDINGS: Left atrial appendage: Occluder device present with left atrial appendage opacification similar to prior. Portion of occluder disc appears to extend into the left atrial lumen, in unchanged configuration when compared with the prior CT from 03/18/2025. No thrombus is seen on the left atrial side of the device There is No evidence of left atrial appendage thrombus. Interatrial septum measures 5 mm thick and is free of device or thrombus. Esophagus lies immediately posterior to the left atrium in the midline. Other findings: Left atrial enlargement. No pericardial effusion. Small hiatal hernia. Again see cystic lesion in the right upper lobe measures 7mm, unchanged. Unchanged solid pulmonary nodule at the left lower lobe measures 0.6 cm (series 8 image 153). Dependent bibasilar atelectasis. Clear central airways. No pleural effusion or pneumothorax. Multilevel degenerative changes of the visualized spine. Right shoulder prostheses. Included images of the upper abdomen appears unremarkable. IMPRESSION: 1. Unchanged configuration of the left atrial appendage occluder device with persistent flow into the left atrial appendage. 2. Unchanged bilateral pulmonary nodules. Consider follow-up CT in one year if indicated. Dictated by: Alex Martínez M.D. The radiology attending physician has personally reviewed this study, and had reviewed and/or edited this written report and agrees with it. Electronically signed by: Leonardo Escobar M.D. 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 Door Mechanic Expl anation ADVANCE DIRECTIVE 12/01/2018 4:58 AM [employer] OF [employer] * Full Code (Latest Code Status on File) Date Activated Date Inactivated Comments 11/03/2023 12:28 PM 11/07/2023 5:32 PM * Full Code Date Activated Date Inactivated Comments 11/25/2018 2:08 PM 11/28/2018 7:12 PM Care Teams Surveyor Relationship Specialty Start Date End Date Theodore Farrar MD [address] [place] [id number] PCP - General Family Practice 11/06/24 Bobo Lim PA [address] [facility] [address] [place] [address] Physician Mixer Whipped Topping 12/02/23 Andrew Vegas MD [address] [place] [address] [facility] [address] [place] [address] Surgeon Orthopedic Surgery 11/06/23
--- OUTSIDE RECORDS SUMMARY | 2025-07-07 17:20 | XMS_ITS | Encounter Summary ---
Author Organization [facility] Healthcare Address [address] [place] [address] Care Team Providers Care Supervisor Orchard Name Role Phone Bobo Lim Unavailable [phone] Andrew Vegas MD Unavailable [phone] Odell Kinney DO Primary Care Provider [phone] Theodore Farrar MD Primary Care Provider [phone] Encounter Details Date Type Department Care Team (Late st Contact Info) Description 10/09/2024 Orders Only [facility] Information Management [address] [place] [address] Scanning, Provider Social History Tobacco Use Types Packs/Day Years Used Date Smoking Tobacco: Never Smokeless Tobacco: Never Alcohol Use Standard Drinks/Week Comments No 0 (1 standard drink = 0.6 oz pur e alcohol) [facility] Utilities Answer Date Recorded In the past 12 months has [employer], gas, oil, or water company threatened [...] 11/04/2023 How often do you attend [facility] or restorationist services? 1 to 4 times per year 11/04/2023 Do you belong to any clubs o r organizations such as mosque groups, unions, fraternal or athletic groups, or [...] place to sleep or slept in a longterm (including now)? No 11/04/2023 Personal Safety Answer Date Recorded Have you ever been in or are you currently in a harmful physical or emotional relationship or is someone making you feel afraid or unsafe? 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 [address] [place] [address] PCP - General Internal Medicine 04/15/24 11/05/24 Theodore Farrar MD [address] [place] [address] PCP - General Family Practice 11/06/24 Bobo Lim PA [address] [place] [address] [place] [address] Physician Rodeo Rider 12/02/23 Andrew Vegas MD [address] [place] [address] [address] [place] [address] Surgeon Orthopedic Surgery 11/06/23 documented as of this encounter
--- OUTSIDE RECORDS SUMMARY | 2025-07-07 17:20 | XMS_ITS | Encounter Summary ---
Author Organization [facility] Healthcare Address [address] [place] [address] Care Team Providers Care Hall Director Name Role Phone Bobo Lim Unavailable [phone] Andrew Vegas MD Unavailable [phone] Theodore Farrar MD Primary Care Provider [phone] Encounter Details Date Type Department Care Team (Late st Contact Info) Description 11/23/2024 Cardiology Conference [facility] Non-invasive Cardiac Diagnostic Testing [address] [place] [address] Ramos Negro RN Social History Tobacco Use Types Packs/Day Years Used Date Smoking Tobacco: Never Smokeless Tobacco: Never Alcohol Use Standard Drinks/Week Comments No 0 (1 standard drink = 0.6 oz pur e alcohol) [facility] Utilities Answer Date Recorded In the past 12 months has [employer], gas, oil, or water [employer] threatened to shut off services in your [...] week 11/04/2023 How often do you attend [facility] or anabaptism services? 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 Gender Identity Female 03/13/2020 12:13 PM CDT Sexual Orientation Not on file documented as of this encounter Plan of Treatment Not on file documented as of this encounter Visit Diagnoses Not on filedocumented in this encounter Care Teams Hall Director Relationship Specialty Start Date End Date Theodore Farrar MD [address] [place] [address] PCP - General Family Practice 11/06/24 Bobo Lim PA [address] [facility] [address] [place] [address] Physician Distribution Agent 12/02/23 Andrew Vegas MD [address] [place] [address] [facility] [address] [place] [address] Surgeon Orthopedic Surgery 11/06/23 documented as of this encounter
--- OUTSIDE RECORDS SUMMARY | 2025-07-07 17:20 | XMS_ITS | Encounter Summary ---
Author Organization [facility] Healthcare Address [address] [place] [address] Care Team Providers Care Grails Web Application Developer Name Role Phone Bobo Lim Unavailable [phone] Andrew Vegas MD Unavailable [phone] Theodore Farrar MD Primary Care Provider [phone] Encounter Details Date Type Department Care Team (Late st Contact Info) Description 12/16/2024 [facility] Post Discharge Follow up phone call [facility] [address] [place] [address] Yolanda Gaona Social History Tobacco Use Types Packs/Day Years Used Date Smoking Tobacco: Never Smokeless Tobacco: Never Alcohol Use Standard Drinks/Week Comments No 0 (1 standard drink = 0.6 oz pur e alcohol) [facility] Utilities Answer Date Recorded In the past 12 months has [employer], gas, oil, or water [employer] threatened to shut off services in your [...] you attend [facility] or church services? 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 Gender Identity Female 03/13/2020 12:13 PM CDT Sexual Orientation Not on file documented as of this encounter Plan of Treatment Not on file documented as of this encounter Visit Diagnoses Not on filedocumented in this encounter Care Teams Grails Web Application Developer Relationship Specialty Start Date End Date Theodore Farrar MD [address] [place] [address] PCP - General Family Practice 11/06/24 Bobo Lim PA [address] [facility] [address] [place] [address] Physician Ad Operations Coordinator 12/02/23 Andrew Vegas MD [address] [place] [address] [facility] [address] [place] [address] Surgeon Orthopedic Surgery 11/06/23 documented as of this encounter
--- OUTSIDE RECORDS SUMMARY | 2025-07-07 17:21 | XMS_ITS | Encounter Summary ---
Author Organization [facility] Healthcare Address [address] [place] [address] Care Team Providers Care Die Attacher Name Role Phone Bobo Lim Unavailable [phone] Andrew Vegas MD Unavailable Theodore Farrar MD Primary Care Provider [phone] Encounter Details Date Type Department Care Team (Late st Contact Info) Description 06/16/2025 Telephone [facility] Medical Group Cardiology [address] [place] [address] Deion Marin MD [address] [address] [facility] [address], [address] [place] [address] Social History Tobacco Use Types Packs/Day Years Used Date Smoking Tobacco: Never Smokeless Tobacco: Never Alcohol Use Standard Drinks/Week Comments No 0 (1 standard drink = 0.6 oz pur e alcohol) [facility] Utilities Answer Date Recorded In the past 12 months has [email or web address] electric, gas, oil, or water company threatened [...] often do you attend chur ch or yazidi services? 1 to 4 times per year 11/04/2023 Do you belong to any clubs o r organizations such as orthodox groups, unions, fraternal or athletic groups, or [...] to sleep or slept in a senior care (including now)? No 11/04/2023 Personal Safety Answer Date Recorded Have you ever been in or are you currently in a harmful physical or emotional relationship or is someone making you feel afraid or unsafe? Denies 01/13/2025 Comments No Sex and Gender Information Value Date Recorded Sex Assigned at Not on file Legal Sex Female 10:51 AM CERTIFIED FIRST ASSISTANT Gender Identity Female 03/13/2020 12:13 PM CDT Sexual Orientation Not on file documented as of this encounter Miscellaneous Notes * Telephone Encounter - Carmela Robert RN - 06/16/2025 4:28 PM CDT Spoke with pt, pt states that she has 3 open itchy areas to her right arm since last night. Pt concerned that it is from her recent CT scan with IV contrast. Pt's ct scan was 2 days ago and IV was started in the left arm. Pt denies any other symptoms. Pt advised to contact her pcp to have them address open itching areas. Pt verbalizes understanding. Pt advised to go to the ER for any SOB, throat or tongue swelling, or increased rash. Pt verbalizes understanding. * Telephone Encounter - Brandee Palacios - 06/16/2025 3:51 PM CDT Patient called in and states that she had a cath scan done on 06/14 and she believes that she is having an allergic reaction to the dye. Patient states that she has broken out on the right arm up to the elbow. It itches and she is wondering if there is a type of medication that can be applied to thearea. Please advise. Thank you. Contact : [phone] documented in this encounter Plan of Treatment Not on file documented as of this encounter Visit Diagnoses Not on filedocumented in this encounter Care Teams Die Attacher Relationship Specialty Start Date End Date Theodore Farrar MD [address] [place] [address] PCP - General Family Practice 11/06/24 Bobo Lim PA [address] [facility] [address] [place] [address] Physician Ship Manager 12/02/23 Andrew Vegas MD [address] [place] [address] [address] [place] [address] Surgeon Orthopedic Surgery 11/06/23 documented as of this encounter
--- OUTSIDE RECORDS SUMMARY | 2025-07-07 17:21 | XMS_ITS | Encounter Summary ---
Author Organization [facility] Address [address] [place] [address] Phone Care Team Providers Care Retail Project Merchandiser Name Role Phone Bobo Lim Unavailable [phone] Andrew Vegas MD Unavailable Theodore Farrar MD Primary Care Provider [phone] Encounter Details Date Type Department Care Team (Late st Contact Info) Description 06/21/[address] [facility] Medicine Cardiology [address] [facility] Advanced Medicine 8th [place] [address] [place] [id number] Fabricio Vaca MD [address] [facility] [address] [place], [place] [id number] Social History Tobacco Use Types Packs/Day Years Used Date Smoking Tobacco: Never Smokeless Tobacco: Never Alcohol Use Standard Drinks/Week Comments No 0 (1 standard drink = 0.6 oz pur e alcohol) [facility] Utilities Answer Date Recorded In the [...] any clubs o r organizations such as tenriism groups, unions, fraternal or athletic groups, or [...] place to sleep or slept in a [place] facility (including now)? No 11/04/2023 Personal Safety Answer Date Recorded Have you ever been in or are you currently in a harmful physical or emotional relationship or is someone making you feel afraid or unsafe? 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 I will try again later today. Dr. Vaca will need to review and let me know plan of care moving forward. * Telephone Encounter - Mame Sewell RN - 06/22/2025 1:14 PM CDT I will speak with Dr. Vaca and then reach out to the pt. * Telephone Encounter - Kellee Escalante - 06/21/2025 2:50 PM CDT Lio Pt calling stating she would like to discuss next steps for her care. States Dr. Vaca needs to let other doctors know, Dr. Marin and Dr. Couch, about pt's care. Please call to discuss. documented in this encounter Plan of Treatment Not on file documented as of this encounter Visit Diagnoses Not on filedocumented in this encounter Care Teams Retail Project Merchandiser Relationship Specialty Start Date End Date Theodore Farrar MD [address] [place], [place] [id number] PCP - General Family Practice 11/06/24 Bobo Lim PA [address] [address] [place] [address] Physician Service Coordinator 12/02/23 Andrew Vegas MD [address] [place] [address] [address] [place] [address] Surgeon Orthopedic Surgery 11/06/23 documented as of this encounter
== END 2025-07-07 15:09 | disposition home or self-care (01) ==
PROVIDERS: PCP Family Medicine; Visit Provider Family Medicine
DX: L97.509 Non-pressure chronic ulcer of other part of unspecified foot with unspecified severity (principal)
CPT/HCPCS: 73660

== ENCOUNTER 2025-07-14 09:27 | Outpatient (RCR) | payer MEDICARE, OTHER, MEDICAID, SELFPAY ==
[2025-07-14 10:00] VITALS: BMI 24.0
--- NOTE | 2025-07-14 10:02 | WNDPHOTO ---
PHOTO ONLY - See Nursing Notes and/ or assessments for documentation.
--- NOTE | 2025-07-14 10:05 | WNDPHOTO ---
PHOTO ONLY - See Nursing Notes and/ or assessments for documentation.
== END 2025-09-06 10:29 | disposition home or self-care (01) ==
LOC: ANHWOC 09:27
PROVIDERS: PCP Family Medicine; Visit Provider Family Medicine
DX: S91.109A Unspecified open wound of unspecified toe(s) without damage to nail, initial encounter (principal)
CPT/HCPCS: 99214; G0463

== ENCOUNTER 2025-07-16 10:37 | Emergency (ER) | payer MEDICARE, OTHER, MEDICAID, SELFPAY ==
[2025-07-16] VITALS (17 sets, daily range): BP systolic 118–150; BP diastolic 72–108; PULSE 94–145; RESP 14–33; TEMP 36.6; O2SAT 90–97
--- NOTE | ~2025-07-16 | XR_ITS ---
Examination: XR chest 1V Clinical History: afib rvr Comparison: 12/27/2024 Technique: Portable AP Findings: Cardiomegaly. Mild bibasilar opacities. Lungs otherwise clear. No acute bony abnormality. IMPRESSION: 1. Mild bibasilar atelectasis and/or airspace disease. Reviewed, dictated and finalized at location R.
--- NOTE | ~2025-07-16 | XR_ITS ---
Examination: XR hip LT 2V w AP pelvis, XR knee LT 3V Clinical History: Fall Comparison: Left knee radiographs 11/07/2022 Technique: 2 views left hip with AP pelvis, 3 views left knee Findings/impression: Left hip: 1. Prosthesis intact without associated fracture or dislocation. 2. No pelvic fracture identified. Left knee: 1. No fracture, dislocation, or effusion left knee. 2. Minimal degenerative changes. Reviewed, dictated and finalized at location R.
--- NOTE | 2025-07-16 10:47 | ECG_ITS ---
Test Date: 2025-07-16 10:49:47 Measurements Intervals [place] Rate: 124 P: 0 NH: 0 QRS: -12 QRSD: 82 T: 15 QT: 321 QTc: 462 Interpretive Statements ATRIAL FLUTTER/TACHYCARDIA WITH RAPID VENTRICULAR RESPONSE CONSIDER INFERIOR INFARCT, AGE INDETERMINATE BORDERLINE ST-T WAVE ABNORMALITY- HIGH LATERAL LEADS BASELINE ARTIFACT- I, II, III, AVR, AVL, AVF ABNORMAL ECG Compared to ECG 12/29/2024 09:27:46 Sinus bradycardia no longer present Electronically Signed On 07-16-2025 15:05:12 CDT by Levar Reece D.O.
--- NOTE | 2025-07-16 10:58 | ED_ITS ---
HPI - Extremity Injury (Lower) General Chief Complaint: Extremity Injury, Lower Stated Complaint: knee pain Time Seen by Provider: 07/16/25 10:40 History of Present Illness HPI Narrative: 84-year-old female with history of cerebral palsy with residual right-sided deficits, history of chronic AFib with chronic anticoagulation with Eliquis, seizure disorder. Patient is currently on sotalol 40 mg b.i.d. and previously been titrated increased doses but she did not tolerate high doses of sotalol. Previously also been on metoprolol for AFib. Pain cardioverted previously most recently in December this year. Patient presents with left knee pain after an injury that happened 2 weeks ago. She states she fell while trying to walk has been having persistent pain since but also notes that her heart rate is elevated today. States that she normally is able to calm down and heart rate sits around 110 at home but today it is in the 140s. Denies any chest pain shortness a breath. No nausea vomiting, dizziness or recurrent falls. No new injuries. Was otherwise in her normal state of health. 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 No other recent medication changes. Has been taking Tylenol with some intermittent pain control but still having pain in her left knee. Previous hip replacement left side. Related Data Home Medications ?Medication ?Instructions ?Recorded ?Confirmed ?Last Taken ?Type cholecalciferol (vitamin D3) 25 25 mcg PO .[facility] 5 07/14/25 12/27/24 06:15 History mcg (1,000 unit) capsule 25 mcg clopidogrel 75 mg tablet 75 mg PO DAILY 12/27/24 1010/1612/27/24 06:00 History 75 mg apixaban 5 mg tablet (Eliquis) 5 mg PO BID 05/10/25 Unknown History Allergies Allergy/AdvReac Type Severity Reaction Status Date / Time No Known Allergies Allergy Verified 07/16/25 11:23 Review of Systems 2 Review of Systems: As reviewed above in HPI FOR[facility]LY [facility] Past Medical History Medical History Parkinsons disease Chronic anticoagulation Arthritis Paroxysmal atrial fibrillation history of cardioversion in 12/2023 Pulmonary embolism (11/2023) Constipation Wears glasses Lumbar radiculopathy Vitamin D deficiency Low vitamin D level Hypertension Vitamin D deficiency Hypothyroidism Cerebral palsy Patient denies this diagnosis but states she has had right-sided weakness and spasticity since . 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 Code status: Full code. Smoking status: Never smoker Second hand tobacco smoke exposure: No Alcohol intake: never Substance use: never Substance use type: does not use Do You Feel Safe in your Home?: Yes Lack of Transportation: No Lack of Food: Never True Current Housing: I Have Housing Concerned About Future Housing: No Difficulty Paying Gas/Electric Bills: No Difficulty Paying for Meds: No Currently Unemployed: No Education: High School Diploma/GED Difficulty w/ Childcare or Family Care: Decline to Answer Living arrangements: assisted living Additional living arrangements comments: . Occupation/Education: retired Gender identity (if verbalized by the patient): Female Spiritual care concerns: No Exam 2 Narrative: GENERAL: [Well-appearing, well-nourished, and in no acute distress.] HEAD: [Normocephalic, atraumatic.] EYES: [PERRLA and EOMI.] ENT: Nares clear, no rhinorrhea or epistaxis. Mucous membranes moist. NECK: Supple. CHEST: [Clear to auscultation. No respiratory distress.] HEART: Irregular rate, rapid rhythm. No murmur heard. [Normal peripheral pulses.] ABDOMEN: [Soft, nondistended], [nontender], [No rigidity or guarding] EXTREMITIES: Tenderness to palpation over the patella but no step-offs deformities or laxity. Intact straight leg raise. No pain over the hip joint. Full range of motion of the left lower extremity otherwise. Right lower extremity and right upper extremity weakness at baseline. SKIN: Warm, dry, no rash. NEURO: No new focal deficits, chronic right-sided weakness. Alert and oriented [x3.] PSYCH: [Normal mood and affect.] Course Vital Signs Vital signs: Vital Signs Temperature 36.6 C 07/16/25 10:39 Pulse Rate 140 H 07/16/25 10:39 Respiratory Rate 20 07/16/25 10:39 Blood Pressure 143/103 H 07/16/25 10:39 Pulse Oximetry 92 07/16/25 10:39 Oxygen Delivery Room Air 07/16/25 10:39 Temperature 36.6 C 07/16/25 10:39 Pulse Rate 106 H 07/16/25 13:24 Respiratory Rate 21 H 07/16/25 13:24 Blood Pressure 139/95 H 07/16/25 13:24 Pulse Oximetry 96 07/16/25 13:24 Oxygen Delivery Room Air 07/16/25 10:39 MDM - Extremity Injury (Lower) MDM Narrative Medical decision making narrative: 84-year-old female with history of cerebral palsy with residual right-sided deficits, history of chronic AFib with chronic anticoagulation with Eliquis, seizure disorder. Patient is currently on sotalol 40 mg b.i.d. and previously been titrated increased doses but she did not tolerate high doses of sotalol. Previously also been on metoprolol for AFib. Pain cardioverted previously most recently in December this year. Patient presents with left knee pain after an injury that happened 2 weeks ago. She states she fell while trying to walk has been having persistent pain since but also notes that her heart rate is elevated today. States that she normally is able to calm down and heart rate sits around 110 at home but today it is in the 140s. Denies any chest pain shortness a breath. No nausea vomiting, dizziness or recurrent falls. No new injuries. Was otherwise in her normal state of health. 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 No other recent medication changes. Has been taking Tylenol with some intermittent pain control but still having pain in her left knee. Previous hip replacement left side. Patient is noted to be tachycardic with heart rates between [id number]. No chest pain shortness a breath. No fever, hypoxia. Saturating 95% on room air with good waveform. Blood pressure 143/103. No step-offs deformities or obvious trauma to the knee but she did fall 2 weeks ago and still having pain. States her heart rate is normally high but might be exacerbated secondary to pain today or exacerbation of her chronic AFib with RVR. IV established, EKG confirms rapid AFib without any ST segment changes. Given diltiazem measured he took her home medications without any improvement. Laboratory studies obtained, x-rays of the chest hip and knee were obtained secondary to the fall. Patient got small dose of diltiazem with control of her rate down into the 90s to 100s. Patient remains asymptomatic. Observed for several hours. X-rays were unremarkable without any acute fractures. Labs unremarkable. Negative troponin. No leukocytosis or anemia. Normal creatinine, glucose and electrolytes. Patient re-evaluated and had pain controlled. No acute abnormalities and she did not return into rapid ventricular rate. I spoke to patient's cardiology group over the phone and got connected with Dr. Grady who provided recommendations to increase patient's home dose to 80 mg b.i.d. of sotalol and to call the office on Friday for close follow-up visit. Patient made aware of the plan to increase her medications and felt comfortable with going home at this time with strict return precautions. Medical Records Attestation: I reviewed the patient's medical records. Lab Data Attestation: I reviewed the patient's lab results. 07/16/25 11:08 07/16/25 11:08 Labs: Lab Results 07/16/25 Range/Units 11:08 WBC 9.6 (4.5-10.0) K/mm3 RBC 3.93 L (4.2-5.4) M/mm3 Hgb 12.9 (12.0-15.0) g/dL Hct 38.6 (37.0-47.0) % MCV 98.2 (80-100) fl MCH 32.8 (26-34) pg MCHC 33.4 (32-36) g/dl RDW 13.8 (11.5-14.5) % Plt Count 219 (150-375) k/mm3 MPV 8.7 (7.4-10.4) fl Immature Gran % (Auto) 0.4 (0-0.5) % Neut % (Auto) 82.0 H (45.5-73.1) % Lymph % (Auto) 9.4 L (18.3-44.2) % [place] % (Auto) 6.8 (2.6-8.5) % Eos % (Auto) 0.9 (0-4.4) % Baso % (Auto) 0.5 (0.2-1.2) % Lymph # (Auto) 0.90 (0.9-3.2) K/mm3 [place] # (Auto) 0.7 H (0.1-0.6) K/mm3 Eos # (Auto) 0.1 (0-0.3) K/mm3 Baso # (Auto) 0.1 (0.0-0.1) K/mm3 Abs Immat Gran (auto) 0.04 H (0.00-0.031) K/mm3 Absolute Neuts (auto) 7.8 H (1.3-6.7) K/mm3 Absolute Nucleated RBC 0.000 (0.0-0.012) K/mm3 Nucleated RBC % 0.0 (0.0-0.2) % PT 15.4 H (11.1-14.7) Seconds INR 1.2 APTT 29.1 (22.3-36.8) Seconds Sodium 139 (137-145) mmol/L Potassium 4.1 (3.4-5.0) mmol/L Chloride 105 (98-107) mmol/L Carbon Dioxide 25 (22-30) mmol/L Anion Gap 9 (4-12) mmol/L BUN 20 H (7-17) mg/dL Creatinine 0.66 L (0.7-1.0) mg/dL Estim Creat Clear Calc 47 ml/min Estimated GFR > 60 (59 - ) Glucose 119 H (65-110) mg/dL Calcium 9.1 (8.4-10.2) mg/dL Total Bilirubin 0.7 (0.2-1.3) mg/dL AST 34 (14-36) U/L ALT 25 (6-35) U/L Alkaline Phosphatase 94 (38-126) U/L Troponin I < 0.012 (0.000-0.034) ng/mL Total Protein 7.9 (6.3-8.2) g/dL Albumin 4.2 (3.5-5.1) g/dL Lipase 81 (23-300) U/L Imaging Data Attestation: I personally reviewed and interpreted this imaging study as follows: My impression: Impressions Chest X-Ray 07/16/25 12:09 IMPRESSION: 1. Mild bibasilar atelectasis and/or airspace disease. Left hip: 1. Prosthesis intact without associated fracture or dislocation. 2. No pelvic fracture identified. Left knee: 1. No fracture, dislocation, or effusion left knee. 2. Minimal degenerative changes. Discharge Plan Discharge Clinical Impression: Acute knee pain, Atrial fibrillation with rapid ventricular response Patient Disposition: Home Condition: Stable Instructions: Antibiotic Form Additional Instructions: We spoke to your Cardiology group and they recommended doubling her dose of sotalol to 80 mg b.i.d. for better control of your heart rate. No injuries or fractures identified today. Your laboratory studies are normal. Follow-up with Cardiology and call their office on Friday. Return with any chest pain, difficulty breathing, uncontrolled heart rate, loss of consciousness, worsening pain or any other emergent issues. Patient Language: [place] Prescriptions: No Action Eliquis 5 mg tablet 5 mg PO BID phenobarbital 30 mg tablet 30 mg PO TID Qty: 90 5RF phenytoin sodium extended [Dilantin Extended] 100 mg capsule 100 mg PO TID Qty: 300 4RF Patient Comments: PER PT CAN NOT TAKE GENERIC WILL BRING IN HOME MEDICATION clopidogrel 75 mg tablet 75 mg PO DAILY cholecalciferol (vitamin D3) 25 mcg (1,000 unit) capsule 25 mcg PO .MWF docusate sodium 100 mg tablet 100 - 200 mg PO QHS Qty: 90 1RF acetaminophen [Tylenol Extra Strength] 500 mg tablet 500 mg PO Q6H PRN (Reason: pain) Qty: 120 5RF mecobalamin (vitamin B12) 1,000 mcg tablet,disintegrating 1,000 mcg PO EVERY OTHER DAY Qty: 90 1RF Rx Instructions: Friday, Friday, Friday carbidopa-levodopa 25-100 mg tablet 1 tablet PO TID Qty: 300 2RF calcium carbonate-vitamin D3 600 mg-10 mcg (400 unit) tablet 1 tablet PO BID Qty: 180 0RF levothyroxine 75 mcg tablet See Rx Instructions .ROUTE .COMPLEX Qty: 30 1RF Dose Instruction: TAKE 1 TABLET BY MOUTH ONCE DAILY Rx Instructions: TAKE 1 TABLET BY MOUTH ONCE DAILY sotalol 80 mg tablet See Rx Instructions .ROUTE .COMPLEX Qty: 90 1RF Dose Instruction: TAKE 1/2 TABLET BY MOUTH EVERY 12 HOURS Rx Instructions: TAKE 1/2 TABLET BY MOUTH EVERY 12 HOURS methylprednisolone [Medrol (Samuel)] 4 mg tablets,dose pack See Rx Instructions PO PER PKG DIR Qty: 21 0RF Rx Instructions: PO PER PKG DIR Follow-up/Referrals: Theodore Farrar MD [Primary Care Provider, Family Practice] Time of Disposition: 13:00
[2025-07-16] MEDS: ASPIRIN 81 MG CHEWABLE TABLET 324 MG PO (11:11)
[2025-07-16 11:14] LABS: Hematocrit 38.6 % (37.0-47.0); Hemoglobin 12.9 g/dL (12.0-15.0); Immature Granulocyte Percent A 0.4 % (0-0.5); Lymphocytes Absolute Auto 0.90 K/mm3 (0.9-3.2); Mean Corpuscular HGB Conc 33.4 g/dl (32-36); Mean Corpuscular Hemoglobin 32.8 pg (26-34); Mean Corpuscular Volume 98.2 fl (80-100); Nucleated Red Blood Cells Absolute Auto 0.000 K/mm3 (0.0-0.012); Nucleated Red Blood Cells Perc 0.0 % (0.0-0.2); Platelet Count Result 219 k/mm3 (150-375); Red Blood Count 3.93 M/mm3 (4.2-5.4); White Blood Count 9.6 K/mm3 (4.5-10.0)
[2025-07-16] MEDS: oxyCODONE HCL (*CRX) 2.5 MG TAB IR PO (11:25)
[2025-07-16 11:28] LABS: INR 1.2; Prothrombin Time 15.4 Seconds (11.1-14.7)
[2025-07-16 11:29] LABS: Partial Thromboplastin Time 29.1 Seconds (22.3-36.8)
[2025-07-16 11:32] LABS: Alanine Aminotransferase 25 U/L (6-35); Albumin Level 4.2 g/dL (3.5-5.1); Alkaline Phosphatase 94 U/L (38-126); Anion Gap 9 mmol/L (4-12); Aspartate Amino Transferase 34 U/L (14-36); Bilirubin,Total 0.7 mg/dL (0.2-1.3); Blood Urea Nitrogen 20 mg/dL (7-17); Calcium 9.1 mg/dL (8.4-10.2); Carbon Dioxide 25 mmol/L (22-30); Chloride 105 mmol/L (98-107); Estimated CRCL calculation 47 ml/min; Estimated Glomerular Filt Rate > 60; Glucose 119 mg/dL (65-110); Lipase 81 U/L (23-300); Potassium 4.1 mmol/L (3.4-5.0); Sodium 139 mmol/L (137-145); Total Protein 7.9 g/dL (6.3-8.2)
[2025-07-16 11:38] LABS: Troponin I < 0.012 ng/mL (0.000-0.034)
== END 2025-07-16 13:25 | disposition home or self-care (01) ==
PROVIDERS: Emergency Provider Student in an Organized Health Care Education/Training Program; PCP Family Medicine
DX: M25.562 Pain in left knee (principal); I48.20 Chronic atrial fibrillation, unspecified; Z79.01 Long term (current) use of anticoagulants; G40.909 Epilepsy, unspecified, not intractable, without status epilepticus; G80.9 Cerebral palsy, unspecified; Z96.642 Presence of left artificial hip joint; G20.A1 Parkinson's disease without dyskinesia, without mention of fluctuations; Z86.711 Personal history of pulmonary embolism; E55.9 Vitamin D deficiency, unspecified; I10 Essential (primary) hypertension; E03.9 Hypothyroidism, unspecified; Z96.611 Presence of right artificial shoulder joint
CPT/HCPCS: 36415; 71045; 73502; 73562; 80053; 83690; 84484; 85025; 85610; 85730; 93005; 96374; 99284; A9270; J1163

== ENCOUNTER 2025-07-24 10:14 | Inpatient (IN) | payer MEDICARE, OTHER, MEDICAID, SELFPAY ==
--- OUTSIDE RECORDS SUMMARY | 2017-08-05 18:00 | XMS_ITS | Continuity of Care Document ---
Author Organization [facility] Address [address] [place] [phone] Phone Care Team Providers Care Orchestrator Name Role Phone RCM, Rendering Unavailable Unavailable Allergies, Adverse Reactions, Alerts Substance Reaction Status Criticality No Known Allergies Active No Inform ation Advance Directives Directive Yes / No Effective Date File Name No Information Encounters Encounter Description Practice Location Reason(s) For Visit Diagnoses Date Provider Providers Copied on Encounter [facility] , [address] [place] [address], [id number], tel:[phone] [facility] Location Presence of intraocular lensPunctate keratitis, bilateralOpen angle with borderline findings, low risk, bilateralOther secondary cataract, right eye 7 RCM Rendering . [address] [place] [address], [id number], [place]. tel: [phone] [facility] , [address] [place] [address], [id number], tel:[phone] [facility] Location Regular astigmatism, bilateralAge-rela may reticular degeneration of retina, bilateralMacular cyst, hole, or pseudohole, right eye 201 5 [facility] . [address] [place] [address], [id number], [place]. tel: [phone] Family History Family Member Type Diagnosis Age At Onset No Information Payers Payer name Insurance type Covered democrat ID Authoriza tion(s) No Information Social History Type Description Quantity Date Captured Comments Alcohol Use Details Unknown Caffeine Use Details Unknown Tobacco Use Status Never smoker (Never Smoked) Smoking Status Never smoker (Never Smoked) Non-Smoking Tobacco Use Details : No Details Available : No Details Available Sex Female Chief Complaint And Reason For Visit No Information Reason For Referral Reason For Referral No Information History Of Present Illness Encounter Date Complaint History Of Prese nt Illness No Information Functional Status Date Functional Assessmen t No Information Instructions Date Instruction Additional Infor keo Impression/Plan Related to Diagn osis Description: Superficial punctate keratitis of both eyes \nDiagnosis Code: 370.21 Impression/Plan Related to Diagn osis Description: Open angle with borderline findings and low glaucoma risk in both eyes \nDiagnosis Code: 365.01 Impression/Plan Related to Diagn osis Description: Posterior capsular opacification visually significant of right eye \nDiagnosis Code: 366.53 Impression/Plan Related to Diagn osis Description: Pseudophakia, both eyes \nDiagnosis Code: V43.1 Assessments Type Assessment Date No Information Patient Care Teams Name Effective Dates (start - stop) Status Members No Information
--- OUTSIDE RECORDS SUMMARY | 2025-06-06 08:40 | XMS_ITS ---
Author Organization [facility] Address [address] [place], [place] [address] Care Team Providers Care Loan Approver Name Role Phone ERICELINOR Mccormick Unavailable [phone] CharanTheodore Unavailable Unavailable Allergies No Known Allergies [...] Location Date Provider Diagnosis [facility] [address] [place], [place] [id number] 06/06/2025 ELINOR SCHULTZ Tinea unguium B35.1 ; Pain in right foot M79.671 ; Pain in left foot M79.672 ; Atherosclerosis of [place] arteries of extremities with intermittent claudication, bilateral [...] foot (ICD-10 - M79.672) 06/06/2025 Atherosclerosis of [place] arteries of extremities with intermittent claudication, bilateral [...] 02:20:00 PM, [address], [place], [place], [address], History and Physical Notes * HPI (History [...] * PRESLEY BRISCOE LDOB:1940 (84 yo F)Acc No.[id number]:06/06/2025 Patient: PRESLEY TALAMANTES Provider: Zachery Schultz DPM :1940 A ge:84 Y S ex:Female Date:06/06/2025 Address:[address] [place] [address] [place] [address] Subjective: * Chief Complaints: * Leeanna riojas [...] - M79.672 4 . A therosclerosis of [place] arteries of extremities with intermittent claudication, bilateral [...] SKIN LESIONS, 2 TO 4, Modifiers: Q8 11945 DEBRIDE NAIL, 6 OR MORE, Modifiers: 59 [...] problems develop.) Billing Information: * Procedure Codes: 14358 TRIM SKIN LESIONS, 2 TO 4. Modifiers: Q8 73549 DEBRIDE NAIL, 6 OR MORE. Modifiers: 59, Q8 * Electronic signature of ELINOR SCHULTZ DPM on 07/24/2025 at 10:16 AM STRUCTURAL METAL WORKER Sign off status: Pending * Provider: Zachery Schultz DPM Date: 0 06/06/2025 Generated for Ori zhang/Kassandra/Reeditting on: 1 09/23/2024 10:16 AM STRUCTURAL METAL WORKER
[2025-07-24] VITALS (16 sets, daily range): BP systolic 112–140; BP diastolic 72–99; PULSE 76–149; RESP 16–22; TEMP 36.6–36.7; O2SAT 92–100; BMI 24.0
--- NOTE | ~2025-07-24 | CT_ITS ---
CT HEAD NON-CONTRAST Clinical History: Fall Comparison: 12/27/2024 Technique: Unenhanced axial images skull base to vertex Coronal, sagittal reformats CT images acquired with automatic exposure control for dose reduction DLP: 757 mGy-cm Findings: Age-related atrophy. 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 Chronic white matter microvascular ischemic changes. Sulci, ventricles: Ex vacuo dilatation left lateral ventricle. No intracerebral hemorrhage. No evidence acute territorial infarct. No mass effect, midline shift. Bony calvarium intact. Visualized paranasal sinuses: Left frontal opacified. Ethmoid disease. Mastoid air cells: Clear. IMPRESSION: 1. No acute intracranial findings. Reviewed, dictated and finalized at location [facility] [employer] [facility]
--- NOTE | ~2025-07-24 | XR_ITS ---
Examination: XR knee LT min 4V, XR hip LT 2V w AP pelvis Clinical History: Fall Comparison: None Technique: 2 views left hip with AP pelvis, 4 views left knee Findings/impression: Left hip: 1. Arthroplasty intact, without associated fracture or dislocation. 2. No pelvic fracture identified Left knee: 1. No fracture, dislocation, or effusion. 2. Mild medial compartment joint space narrowing. 3. Peripheral arterial disease. Reviewed, dictated and finalized at location [facility]. [employer]
--- NOTE | ~2025-07-24 | XR_ITS ---
EXAMINATION: XR chest 1V portable COMPARISON: No comparisons available. HISTORY: AFib with RVR FINDINGS: Moderate pulmonary venous congestion. Small basilar infiltrates. No pneumothorax. Moderate cardiomegaly. Mediastinal and hilar contours are within normal limits. Right shoulder arthroplasty. Miscellaneous: None Impression: CHF Reviewed, dictated and finalized at location [facility] Impression: CHF
--- OUTSIDE RECORDS SUMMARY | 2025-07-24 10:16 | XMS_ITS | Encounter Summary ---
Author Organization [facility] Healthcare Address [address] [place] [address] Care Team Providers Care Art Framing Manager Name Role Phone Bobo Lim Unavailable [phone] Andrew Vegas MD Unavailable [phone] Theodore Farrar MD Primary Care Provider [phone] Encounter Details Date Type Department Care Team (Late st Contact Info) Description 12/27/2024 Orders Only [facility] [place] Management [address] [place] [address] Scanning, Provider Social History Tobacco Use Types Packs/Day Years Used Date Smoking Tobacco: Never Smokeless Tobacco: Never Alcohol Use Standard Drinks/Week Comments No 0 (1 standard drink = 0.6 oz pur e alcohol) [facility] Utilities Answer Date Recorded In the past 12 months has [employer], gas, oil, or water [employer] threatened to shut off services in your [...] often do you attend chur ch or adventist services? 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
--- OUTSIDE RECORDS SUMMARY | 2025-07-24 10:16 | XMS_ITS | Encounter Summary ---
Author Organization [facility] Address [address] [place] [address] Phone Care Team Providers Care Recycle Coordinator Name Role Phone Bobo Lim Unavailable [phone] Andrew Vegas MD Unavailable Theodore Farrar MD Primary Care Provider [phone] Encounter Details Date Type Department Care Team (Late st Contact Info) Description 07/14/2025 Results Follow-Up [facility] Medicine Cardiology [address] [facility] Advanced Medicine 8th [place] [address] [place] [address] Fabricio Vaca MD [address] [facility] [address] [place] [address] CT Heart Morphology W Contrast Social History Tobacco Use Types Packs/Day Years Used Date Smoking Tobacco: Never Smokeless Tobacco: Never Alcohol Use Standard Drinks/Week Comments No 0 (1 standard drink = 0.6 oz pur e alcohol) [facility] Utilities Answer Date Recorded In the [...] often do you attend chur ch or christian services? 1 to 4 times per year 11/04/2023 Do you belong to any clubs o r organizations such as baptist groups, unions, fraternal or athletic groups, or [...] place to sleep or slept in a correction (including now)? No 11/04/2023 Personal Safety Answer Date Recorded Have you ever been in or are you currently in a harmful physical or emotional relationship or is someone making you feel afraid or unsafe? Denies 01/13/2025 Comments No Sex and Gender Information Value Date Recorded Sex Assigned at Not on file Legal Sex Female 10:51 AM DIRECTOR WOMEN Gender Identity Female 03/13/2020 12:13 PM CDT Sexual Orientation Not on file documented as of this encounter Miscellaneous Notes * Result Encounter Note - Fabricio Vaca MD - 07/14/2025 2:[address] scan that shows largely an unchanged configuration of the amulet device which is reassuring in that it is in a stable location and unlikely to embolize but there appears to be persistent flow into the device which makes its role as a thrombus preventing device less likely moving forward. Agree with continuing Eliquis for now. I think it would be reasonable to move forward with a AYO cardioversion with plan to continue uninterrupted Eliquis. The patient then should be admitted following the cardioversion for dofetilide initiation while continuing the Eliquis. The AYO will also give us additional information regarding any subtle evidence of DRT and degree of leak and likelihood of ultimate closure. By moving forward with a rhythm control strategy we can also sort out how much better we can make her feel in sinus rhythm as we make additional decisions moving forward regarding the [place] device. Those decisions could involve leaving it in place with continued DOAC versus consideration of removal either percutaneously or surgically plus-minus a clip +/-Maze surgery [facility] documented in this encounter Plan of Treatment Not on file documented as of this encounter Visit Diagnoses Not on filedocumented in this encounter Care Teams Recycle Coordinator Relationship Specialty Start Date End Date Theodore Farrar MD [address] [place] [address] PCP - General Family Practice 11/06/24 Bobo Lim PA [address] [place] [address] Physician Seaming Machine Operator 12/02/23 Andrew Vegas MD [address] [facility] [address] [place] [address] Surgeon Orthopedic Surgery 11/06/23 documented as of this encounter
--- OUTSIDE RECORDS SUMMARY | 2025-07-24 10:16 | XMS_ITS | Clinical Summary ---
Author Organization [facility] [address] [facility] [address] Address [address] [place] [address] Care Team Providers Care Homicide Investigator Name Role Phone Bobo Lim Unavailable [phone] Andrew Vegas MD Unavailable [phone] Theodore Farrar MD Primary Care Provider [phone] Allergies No known active allergies Medications PHENobarbital [...] 1 tablet (75 mcg total) by mouth crm consultant before breakfast 4 Active sotaloL (BETAPACE) 80 [...] year. Assessment & Plan (09/07/2020 3:18 PM METAL DEALER): Patient has sided interval improvement with initiation [...] PCP. Assessment & Plan (09/07/2020 3:18 PM METAL DEALER): Patient's seizures remain controlled on Dilantin treatment. [...] noted. Assessment & Plan (09/07/2020 3:19 PM METAL DEALER): Patient has chronic right spastic hemiparesis associated [...] (10/21/2018): Added automatically from request for surgery [id number] Hemiplegia and hemiparesis f ollowing cerebral infarction affecting right dominant side 1940 Resolved Problems Problem Noted Date Diagnosed Date Resolved Date Chronic anticoagulation 01/01/202402/21 Primary osteoarthritis of left hip 10/24/2023 01/01/2024 Encounters Date Type Department Care Team Description 07/14/2025 Results Follow-Up [facility] Medicine Cardiology [address] [facility] Advanced Medicine 8th [place] [address] [place] [address] Heart Morphology W Contrast 06/21/2025 Telephone [facility] Medicine Cardiology [address] [facility] Advanced Medicine 8th [place] [address] [place] [address] Fabricio Vaca MD 06/21/2025 Telephone [facility] Cardiology [address] [place] [phone] Deion Marin MD pacemaker 06/16/2025 Telephone [facility] Cardiology [address] [place] [address] Deion Marin MD 06/14/2025 10:33 AM CDT - 06/14/2025 11:59 PM CDT Hospital Encounter [facility] [address] [place] [address] Fabricio Vaca MD Presence of Amulet left atrial appendage closure device; PAF (paroxysmal atrial fibrillation) Discharge Disposition: Discharge to home or self care 06/03/2025 1:30 PM CDT Office Visit [facility] Cardiology [address] [place] [phone] Tatiana Clay NP Dizziness; Edema, lower extremity; Persistent atrial fibrillation (HCC); Presence of Amulet left atrial appendage closure device; On continuous oral anticoagulation 06/02/2025 Telephone [facility] Cardiology [address] [facility] [address] [place] [phone] Deion Marin MD 04/27/2025 Telephone [facility] Cardiology [address] [facility] [address] [place] [address] Deion Marin MD 04/25/2025 Telephone [facility] Cardiology [address] [facility] [address] [place] [address] Jesse Couch MD 04/25/2025 Telephone [facility] Cardiology [address] [facility] Advanced Medicine 8th [place] [address] [place] [address] Fabricio Vaca MD from Last 3 Months Immunizations Immunization Administration Dates Next Due ZOSTER Recombinant 02/11/2022 Surgical History Surgery Date Site/Laterality Comments HYSTERECTOMY APPENDECTOMY BREAST SURGERY Left Right TONSILLECTOMY JOINT REPLACEMENT Reverse total shoulder right DILATION AND CURETTAGE OF UTERUS twice TUBAL LIGATION CATARACT EXTRACTION, BILATERAL TOTAL HIP ARTHROPLASTY Left IMPLANTABLE CARDIAC DEVICE 12/09/2024 N/A Procedure: PERC MALINA CLOSE W/IMPLANT [id number]; Surgeon: Jesse Couch MD; 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 1 to 4 times per year 11/04/2023 Do you belong to any clubs o r organizations such as muslim groups, unions, fraternal or athletic groups, or [...] on file Legal Sex Female 10:51 AM METAL DEALER Gender Identity Female 03/13/2020 12:13 PM CDT [...] 10/24/2023, 07/21/2020 Medical Devices Implanted Type Area Human Resource Assistant Device Identifier Shelf Expiration Date Model / Serial / Lot [employer] [id number] Delta Xtend 27mm Cementless Shoulder Standard Component Glenoid Latex Free - [id number] Implanted:Qty: 1 on 11/25/2018 by Jesse Casas MD at [facility] [employer] [id number] / / [employer] [id number] Delta Xtend 4.5mm 42mm Lock Shoulder Glenoid Screw Bone Metaglene - [id number] Implanted:Qty: 1 on 11/25/2018 by Jesse Casas MD at [facility] [employer] [id number] / / [employer] [id number] Delta Xtend 38mm Glenosphere Shoulder Eccentric Component Glenoid Latex Free - [id number] Implanted:Qty: 1 on 11/25/2018 by Jesse Casas MD at [facility] [employer] [id number] / / [employer] [id number] Delta Xtend 4.5mm 36mm Lock Shoulder Glenoid Screw Bone Metaglene - [id number] Implanted:Qty: 1 on 11/25/2018 by Jesse Casas MD at [facility] [employer] [id number] / / [employer] [id number] Delta Xtend Cementless Modular Shoulder Right Epiphysis 155d 1 Latex Free - [id number] Implanted:Qty: 1 on 11/25/2018 by Jesse Casas MD at [facility] [employer] [id number] / / [employer] [id number] Global Unite 8mm 107mm Modular Shoulder Standard Stem Humeral - [id number] Implanted:Qty: 1 on 11/25/2018 by Jesse Casas MD at [facility] [employer] [id number] / / [employer] [id number] Delta Xtend 38mm Shoulder +6mm Standard Cup Humeral Polyethylene Latex Free - [id number] Implanted:Qty: 1 on 11/25/2018 by Jesse Casas MD at [facility] [employer] [id number] / / [employer] [place] 56mm 36mm Hip Neutral Liner Acetabular Altrx Sterile Latex Free [id number] - [id number] Implanted:Qty: 1 on 11/03/2023 by Andrew Vegas MD at [facility] Left: Hip [employer] 07/22/2028 [id number] / / [id number] [employer] [place] 6.5mm 35mm Acetabular Cancellous Screw Bone Sterile 1217-35-500 - [id number] Implanted:Qty: 1 on 11/03/2023 by Andrew Vegas MD at [facility] Left: Hip [employer] 07/22/2033 1217-35-500 / / [id number] [employer] Actis Collar Hip 7 High Offset Stem Femoral [id number] - [id number] Implanted:Qty: 1 on 11/03/2023 by Andrew Veags MD at [facility] Left: Hip [employer] 12/20/2032 [id number] / / [id number] [employer] Articul/Jamel 36mm Cementless Hip +1.5mm / Taper Head Femoral Latex Free [id number] - [id number] Implanted:Qty: 1 on 11/03/2023 by Andrew Vegas MD at [facility] Left: Hip [employer] 08/21/2028 [id number] / / [id number] [employer] [place] 56mm Sector Hip Shell Acetabular Gription Sterile Latex Free [id number] - [id number] Implanted:Qty: 1 on 11/03/2023 by Andrew Vegas MD at [facility] Left: Hip [employer] 03/21/2033 [id number] / / [id number] [employer] V[employer] System Closure Repair Femoral Artery Suture Mediated Perclose Prostyle 74858-41 - [id number] Implanted:Qty: 1 on 12/09/2024 by Jesse Couch MD at [facility] 10/22/2026 [id number] / / [id number] [employer] Vascular System Closure Repair Femoral Artery Suture Mediated Perclose Prostyle 04018-30 - [id number] Implanted:Qty: 1 on 12/09/2024 by Jesse Couch MD at [facility] Vascular 09/21/2026 14332-03 / / [id number] [employer] Vascular Occluder Cvasc Malina Flexible Braided Amplatzer Amulet 25mm Nitinol 7-[id number] - [id number] Implanted:Qty: 1 on 12/09/2024 by Jesse Couch MD at [facility] [employer] 06/21/2029 [id number] [id number] 25 / / [id number] Explanted Type Area Human Resource Assistant Device Identifier Shelf Expiration Date Model / Serial / Lot [employer] [id number] Ramon 3/32in 9in 2 Trocar Pin Fixation Nonsterile - [id number] Explanted:Qty: 1 on 11/25/2018 at [facility] [employer] [id number] / / Procedures Procedure Name Priority Date/Time Associated Diagnosis Comments CT HEART MORPHOLOGY W CONTRAST Schedule Routine, Read Routine (OP Routine) 06/14/2025 12:07 PM CDT Presence of Amulet left atrial appendage closure device PAF (paroxysmal atrial fibrillation) from Last 3 Months Results * CT [...] it. Electronically signed by: Leonardo Escobar M.D. Fabricio Vaca MD IMG CT PROCEDURES Final Result from Last 3 Months Insurance MEDICARE [employer] [place] [employer]ICARE [employer] [place] [place] MEDICARE [facility] MEDICARE Advance Directives For more information, please contact: [phone] Documents on File Type Date Recorded Patient Lidar Scientist Expl anation ADVANCE DIRECTIVE 12/01/2018 4:58 AM POWER OF VISION MIXER-MEDICAL * Full Code (Latest Code Status on File) Date Activated Date Inactivated Comments 11/03/2023 12:28 PM 11/07/2023 5:32 PM * Full Code Date Activated Date Inactivated Comments 11/25/2018 2:08 PM 11/28/2018 7:12 PM Care Teams Homicide Investigator Relationship Specialty Start Date End Date Theodore Farrar MD [address] [place] [address] PCP - General Family Practice 11/06/24 Bobo Lim PA [address] [place] [address] Physician Certified Procedural Coder 12/02/23 Andrew Vegas MD [address] [place] [address] [address] [place] [address] Surgeon Orthopedic Surgery 11/06/23
--- OUTSIDE RECORDS SUMMARY | 2025-07-24 10:16 | XMS_ITS | Patient Health Record ---
Author Organization [facility] Address [address] [facility] [address] [place], [place] [address] Care Team Providers Care Food Safety Auditor Name Role Phone CARI ELINOR Unavailable [phone] CharanTheodore Unavailable Unavailable ELINOR CLEVELAND Unavailable [phone] Allergies No Known Allergies Reason For Referral No Information Medications Medication SIG (Take, Route, Frequency, Duration) Notes Start Date End Date Status Plavix Active Aspirin 81 Active Social History Social History Additional Details Category Social Info Options Details Migrated Social History Migrated Social History History of tobacco use : , Smoking Status : Never smoked Vital Signs Height-cm 170.18 cm 06/06/2025 Weight-kg 58.97 kg 06/06/2025 Height 67.00 in 06/06/2025 Weight 130 lbs 06/06/2025 BMI 20.36 kg/m2 06/06/2025 Encounters Encounter Location Date Provider Diagnosis [facility] [address] [place], [place] [id number] 06/06/2025 ELINOR SCHULTZ Tinea unguium B35.1 ; Pain in right foot M79.671 ; Pain in left foot M79.672 ; Atherosclerosis of [place] arteries of extremities with intermittent claudication, bilateral legs I70.213 and Acquired keratosis [keratoderma] palmaris et plantaris L85.1 [facility] [address] [place], [place] [id number] 07/29/2024 ELINOR CLEVELAND Onychomycosis B35.1 ; 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 ; Pain in right toe(s) M79.674 ; Pain in left toe(s) M79.675 and Unspecified atherosclerosis of [place] arteries of extremities, bilateral legs I70.203 [facility] [address] [place] [id number] 09/16/2024 ELINOR CLEVELAND Onychomycosis B35.1 ; Pain in right toe(s) M79.674 ; Pain in left toe(s) M79.675 and Unspecified atherosclerosis of [place] arteries of extremities, bilateral legs I70.203 [facility] [address] [place] [id number] 11/29/2024 ELINOR SNOOK Tinea unguium B35.1 ; Pain in right foot M79.671 ; Pain in left foot M79.672 ; Atherosclerosis of [place] arteries of extremities with intermittent claudication, bilateral legs I70.213 and Acquired keratosis [keratoderma] palmaris et plantaris L85.1 [facility] [place] [address] [place] [id number] 01/31/2025 ELINOR OOK Tinea unguium B35.1 ; Pain in right foot M79.671 ; Pain in left foot M79.672 ; Atherosclerosis of [place] arteries of extremities with intermittent claudication, bilateral legs I70.213 and Acquired keratosis [keratoderma] palmaris et plantaris L85.1 [facility] [place] [address] [place] [id number] 04/04/2025 ELINOR SNOOK Tinea unguium B35.1 ; Pain in right foot M79.671 ; Pain in left foot M79.672 ; Atherosclerosis of [place] arteries of extremities with intermittent claudication, bilateral legs I70.213 and Acquired keratosis [keratoderma] palmaris et plantaris L85.1 Assessments Encounter Date Diagnosis (ICD Code) Assessment Notes Treatment Notes Treatment Clinical Notes Section Notes 07/29/2024 Non-pressure chronic ulcer of other part [...] toe(s) (ICD-10 - M79.675) 11/29/2024 Atherosclerosis of [place] arteries of extremities with intermittent claudication, bilateral legs (ICD-10 - I70.213) 01/31/2025 Atherosclerosis of [place] arteries of extremities with intermittent claudication, bilateral legs (ICD-10 - I70.213) 04/04/2025 Atherosclerosis of [place] arteries of extremities with intermittent claudication, bilateral legs (ICD-10 - I70.213) 06/06/2025 Atherosclerosis of [place] arteries of extremities with intermittent claudication, bilateral [...] a #15 blade 09/16/2024 Unspecified atherosclerosis of [place] arteries of extremities, bilateral legs (ICD-10 - I70.203) 07/29/2024 Unspecified atherosclerosis of [place] arteries of extremities, bilateral legs (ICD-10 - I70.203) 07/29/2024 Other Dispense interdigital pad. 09/16/2024 Other Nails 1-5 Bilateral were debrided extensively with nail nippers and emery board, reducing length and girth to pink healthy tissue with any subungual debris and necrotic tissue removed Plan Of Treatment Next Appt Details Provider Name:ELINOR SCHULTZ, 02:20:00 PM, [address], [address], [id number], Insurance Providers Payer Name Payer Address Payer Phone Subscriber Number Group Number Insured Name Patient Relationship to Insured Coverage Start Date Coverage End Date Medicare Part B [facility] [address] [place] [address] [id number] PRESLEY BRISCOE Self - patient is the insured [employer] [address] [place] [address] [id number] PRESLEY BRISCOE Self - patient is the insured Medical (General) History Medical History History ICD Code Parkinson's disease osteoporosis
--- OUTSIDE RECORDS SUMMARY | 2025-07-24 10:16 | XMS_ITS | Encounter Summary ---
Author Organization [facility] Healthcare Address [address] [place] [address] Care Team Providers Care Tester Vibrator Equipment Name Role Phone Bobo Lim Unavailable [phone] Andrew Vegas MD Unavailable [phone] Theodore Farrar MD Primary Care Provider [phone] Encounter Details Date Type Department Care Team (Late st Contact Info) Description 11/23/2024 Cardiology Conference [facility] Non-invasive Cardiac Diagnostic Testing [address] [place] [address] Ramos Negro RN Social History Tobacco Use Types Packs/Day Years Used Date Smoking Tobacco: Never Smokeless Tobacco: Never Alcohol Use Standard Drinks/Week Comments No 0 (1 standard drink = 0.6 oz pur e alcohol) [facility] Utilities Answer Date Recorded In the past 12 months has [employer], gas, oil, or water [employer] threatened to shut off services in your [...] week 11/04/2023 How often do you attend [facility] or latter day services? 1 to 4 times per year 11/04/2023 Do you belong to any clubs o r organizations such as gnosticism groups, unions, fraternal or athletic groups, or [...] on file Legal Sex Female 10:51 AM CHANNEL BUSINESS MANAGER Gender Identity Female 03/13/2020 12:13 PM CDT Sexual Orientation Not on file documented as of this encounter Plan of Treatment Not on file documented as of this encounter Visit Diagnoses Not on filedocumented in this encounter Care Teams Tester Vibrator Equipment Relationship Specialty Start Date End Date Theodore Farrar MD [address] [place] [address] PCP - General Family Practice 11/06/24 Bobo Lim PA [address] [facility] [address] [place] [address] Physician Lap Winding Machine Operator 12/02/23 Andrew Vegas MD [address] [place] [address] [facility] [address] [place] [address] Surgeon Orthopedic Surgery 11/06/23 documented as of this encounter
--- OUTSIDE RECORDS SUMMARY | 2025-07-24 10:16 | XMS_ITS | Encounter Summary ---
Author Organization [facility] Healthcare Address [address] [place] [address] Care Team Providers Care Training And Development Coordinator Name Role Phone Bobo Lim Unavailable Andrew Vegas MD Unavailable [phone] Odell Kinney DO Primary Care Provider [phone] Theodore Farrar MD Primary Care Provider [phone] Encounter Details Date Type Department Care Team (Late st Contact Info) Description 10/09/2024 Orders Only [facility] Health Information Management [address] [place] [address] Scanning, Provider Social History Tobacco Use Types Packs/Day Years Used Date Smoking Tobacco: Never Smokeless Tobacco: Never Alcohol Use Standard Drinks/Week Comments No 0 (1 standard drink = 0.6 oz pur e alcohol) [facility] Utilities Answer Date Recorded In the past 12 months has [employer], gas, oil, or water company threatened [...] week 11/04/2023 How often do you attend [facility] or mormonism services? 1 to 4 times per year [...] on file Legal Sex Female 10:51 AM SCRAP DEALER Gender Identity Female 03/13/2020 12:13 PM [...] on filedocumented in this encounter Care Teams Training And Development Coordinator Relationship Specialty Start Date End Date Odell Kinney DO [address] [facility] [address] [place] [address] PCP - General Internal Medicine 04/15/24 11/05/24 Theodore Farrar MD [address] [place] [address] PCP - General Family Practice 11/06/24 Bobo Lim PA [address] [facility] [place] [address] Physician Research And Development Technician 12/02/23 Andrew Vegas MD [address] [place] [address] [address] [place] [address] Surgeon Orthopedic Surgery 11/06/23 documented as of this encounter
--- NOTE | 2025-07-24 11:18 | ECG_ITS ---
Test Date: 2025-07-24 11:23:27 Measurements Intervals [place] Rate: 131 P: 0 MS: 0 QRS: -12 QRSD: 77 T: 0 QT: 157 QTc: 232 Interpretive Statements ATRIAL FIBRILLATION WITH RAPID VENTRICULAR RESPONSE NONSPECIFIC ST & T-WAVE ABNORMALITY ABNORMAL RHYTHM ECG Compared to ECG 07/16/2025 10:49:47 no change Electronically Signed On 07-24-2025 13:24:20 LIEUTENANT SHIFT SUPERVISOR by Cristopher Shea M.D.
--- NOTE | 2025-07-24 11:30 | ED.GENADULT ---
HPI - General Adult General Chief complaint: Extremity Injury, Lower Stated complaint: left knee pain sukhwinder up to hip Time Seen by Provider: 07/24/25 11:30 Source: patient and EMS Mode of arrival: EMS History of Present Illness HPI narrative: 84 years old white female came to the ED from intermediate by ambulance complaining of left knee and left hip pain. Last night patient bent over to turkey picker on ice croup of the floor lost her balance and fell landed on the left side of her body complain of left hip and left knee pain. History of AFib, did not taking medication this morning sotalol 80 mg twice a day and Eliquis 5 mg q.a.m. currently patient denying any head pain or neck pain or back pain. Patient denying any fever, chills, nausea, vomiting, chest pain, shortness of breath or back pain or headache or neck pain Related Data Home Medications ?Medication ?Instructions ?Recorded ?Confirmed ?Last Taken ?Type cholecalciferol (vitamin D3) 25 25 mcg PO .[facility] 12/27/24 07/14/25 12/27/24 06:15 History mcg (1,000 unit) capsule 25 mcg clopidogrel 75 mg tablet 75 mg PO DAILY 12/27/24 06/22/25 12/27/24 06:00 History 75 mg apixaban 5 mg tablet (Eliquis) 5 mg PO BID 05/10/25 07/14/25 Unknown History acetaminophen 500 mg tablet 1,000 mg PO Q6H PRN pain 07/24/25 07/24/25 Unknown History (Tylenol Extra Strength) aspirin 81 mg chewable tablet 1 tablet PO DAILY 07/24/25 07/24/25 Unknown History calcium 600 mg (as 1 tablet PO Q12H 07/24/25 07/24/25 Unknown History carbonate)-vitamin D3 10 mcg (400 unit) tablet docusate sodium 100 mg tablet 100 mg PO QHS 07/24/25 07/24/25 Unknown History furosemide 20 mg tablet 20 mg PO DAILY 07/24/25 07/24/25 Unknown History sdquouoj-wjlf-aidh 8 mg-folic 400 1 tablet PO DAILY 07/24/25 07/24/25 Unknown History mcg-K 50 mcg-lutein 300 mcg tablet (Multivitamin Women 50 Plus) pantoprazole 40 mg tablet,delayed 40 mg PO DAILY 07/24/25 07/24/25 Unknown History release sotalol 80 mg tablet 40 mg PO Q12H 07/24/25 07/24/25 Unknown History Allergies Allergy/AdvReac Type Severity Reaction Status Date / Time No Known Allergies Allergy Verified 07/24/25 16:54 [facility] Past Medical History Medical History Parkinsons disease Chronic anticoagulation Arthritis Paroxysmal atrial fibrillation history of cardioversion in 12/2023 Pulmonary embolism (11/2023) Constipation Wears glasses Lumbar radiculopathy Vitamin D deficiency Low vitamin D level Hypertension Vitamin D deficiency Hypothyroidism Cerebral palsy Patient denies this diagnosis but states she has had right-sided weakness and spasticity since . 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 Code status: Full code. Smoking status: Never smoker Second hand tobacco smoke exposure: No Alcohol intake: never Substance use: never Substance use type: does not use Do You Feel Safe in your Home?: Yes Lack of Transportation: No Lack of Food: Never True Current Housing: I Have Housing Concerned About Future Housing: No Difficulty Paying Gas/Electric Bills: No Difficulty Paying for Meds: No Currently Unemployed: No Education: High School Diploma/GED Difficulty w/ Childcare or Family Care: Decline to Answer Living arrangements: assisted living Additional living arrangements comments: . Occupation/Education: retired Gender identity (if verbalized by the patient): Female Spiritual care concerns: No Exam Narrative: General appearance: Well-developed, well-nourished Skin: Normal color Head: Normocephalic, nontraumatic Eyes: Clear conjunctiva ENT: Oropharynx normal, ears normal, nose normal Neck: Supple, nontender Chest and respiratory: Airway patent, no respiratory distress, no accessory muscle use Heart: Irregular irregularity, tachycardia Abdomen: Soft, nontender, no organomegaly, quiet bowel sounds Vascular: Normal peripheral pulses, normal capillary refill. Musculoskeletal: Normal range of motion, nontender back Neurologic: Alert and oriented ?3, CLINICAL PARTNER is normal as tested, no gross motor deficit Course Vital Signs Vital signs: Vital Signs Temperature 36.6 C 07/24/25 11:30 Pulse Rate 149 H 07/24/25 11:30 Respiratory Rate 18 07/24/25 11:30 Blood Pressure 140/90 07/24/25 11:30 Pulse Oximetry 97 07/24/25 11:30 Oxygen Delivery Room Air 07/24/25 11:30 Temperature 36.6 C 07/24/25 11:30 Pulse Rate 94 07/24/25 15:11 Respiratory Rate 18 07/24/25 15:11 Blood Pressure 125/81 07/24/25 15:11 Pulse Oximetry 93 07/24/25 15:11 Oxygen Delivery Nasal Cannula 07/24/25 13:00 Oxygen Flow Rate 2 07/24/25 13:00 Medical Decision Making MDM Narrative Medical decision making narrative: Patient came to the ED because of fall last night complaining of left hip and left knee pain Vital signs showing AFib with RVR at 149 beats per minute otherwise within normal limit Patient did not take her regular sotalol 80 mg this morning prior to arrival. In the ED patient denies any chest pain or shortness of breath or lightheadedness or headache. CT head without contrast showed no acute abnormality, x-ray of the left hip and pelvis and left knee showed no acute osseous abnormality. Patient was given 80 mg of sotalol p.o. and 5 mg of Lopressor IV, heart rate is still running between 130 and 150. Cardizem bolus and drip started. Blood workup today includes CBC, CMP, troponin, and coags showed pro BNP 2670 which is higher compared to the previous readings Chest x-ray showed congestive heart failure Admit to hospitalist Diagnosis CHF, AFib with RVR a Medical Records Medical records reviewed: Yes I reviewed the external patient's medical records. Vital Signs Vital Signs: Vital Signs Temperature 36.6 C 07/24/25 11:30 Pulse Rate 149 H 07/24/25 11:30 Respiratory Rate 18 07/24/25 11:30 Blood Pressure 140/90 07/24/25 11:30 Pulse Oximetry 97 07/24/25 11:30 Oxygen Delivery Room Air 07/24/25 11:30 Temperature 36.6 C 07/24/25 11:30 Pulse Rate 94 07/24/25 15:11 Respiratory Rate 18 07/24/25 15:11 Blood Pressure 125/81 07/24/25 15:11 Pulse Oximetry 93 07/24/25 15:11 Oxygen Delivery Nasal Cannula 07/24/25 13:00 Oxygen Flow Rate 2 07/24/25 13:00 Lab Data 07/24/25 14:05 07/24/25 14:05 Labs: Lab Results 07/24/25 Range/Units 14:05 WBC 6.3 (4.5-10.0) K/mm3 RBC 3.73 L (4.2-5.4) M/mm3 Hgb 12.3 (12.0-15.0) g/dL Hct 36.9 L (37.0-47.0) % MCV 98.9 (80-100) fl MCH 33.0 (26-34) pg MCHC 33.3 (32-36) g/dl RDW 14.6 H (11.5-14.5) % Plt Count 264 (150-375) k/mm3 MPV 8.8 (7.4-10.4) fl Immature Gran % (Auto) 0.3 (0-0.5) % Neut % (Auto) 66.9 (45.5-73.1) % Lymph % (Auto) 21.0 (18.3-44.2) % [place] % (Auto) 8.0 (2.6-8.5) % Eos % (Auto) 3.2 (0-4.4) % Baso % (Auto) 0.6 (0.2-1.2) % Lymph # (Auto) 1.31 (0.9-3.2) K/mm3 [place] # (Auto) 0.5 (0.1-0.6) K/mm3 Eos # (Auto) 0.2 (0-0.3) K/mm3 Baso # (Auto) 0.0 (0.0-0.1) K/mm3 Abs Immat Gran (auto) 0.02 (0.00-0.031) K/mm3 Absolute Neuts (auto) 4.2 (1.3-6.7) K/mm3 Absolute Nucleated RBC 0.000 (0.0-0.012) K/mm3 Nucleated RBC % 0.0 (0.0-0.2) % PT 15.2 H (11.1-14.7) Seconds INR 1.2 APTT 28.0 (22.3-36.8) Seconds Sodium 139 (137-145) mmol/L Potassium 4.4 (3.4-5.0) mmol/L Chloride 108 H (98-107) mmol/L Carbon Dioxide 26 (22-30) mmol/L Anion Gap 5 (4-12) mmol/L BUN 21 H (7-17) mg/dL Creatinine 0.68 L (0.7-1.0) mg/dL Estim Creat Clear Calc 46 ml/min Estimated GFR > 60 (59 - ) Glucose 104 (65-110) mg/dL Calcium 8.9 (8.4-10.2) mg/dL Total Bilirubin 0.5 (0.2-1.3) mg/dL AST 32 (14-36) U/L ALT 15 (6-35) U/L Alkaline Phosphatase 67 (38-126) U/L Troponin I < 0.012 (0.000-0.034) ng/mL NT-Pro-B Natriuret Pep 2670 H (19.9-100) pg/mL Total Protein 7.5 (6.3-8.2) g/dL Albumin 4.0 (3.5-5.1) g/dL Triglycerides 140 (<150) mg/dL Imaging Data My impression: X-ray of left knee and left hip and pelvis showed no acute osseous abnormality Radiologist's impression: Impressions Head CT 07/24/25 12:48 IMPRESSION: 1. No acute intracranial findings. Critical Care Time Critical Care Time Critical Care Time: Yes Total Critical Care Time: 30 Discharge Plan Discharge Clinical Impression: Acute pain of left lower extremity, Atrial fibrillation with rapid ventricular response, CHF (congestive heart failure) Patient Disposition: Still a Patient Condition: Improved Patient Language: Iranian Prescriptions: No Action Eliquis 5 mg tablet 5 mg PO BID phenobarbital 30 mg tablet 30 mg PO TID Qty: 90 5RF phenytoin sodium extended [Dilantin Extended] 100 mg capsule 100 mg PO TID Qty: 300 4RF Patient Comments: PER PT CAN NOT TAKE GENERIC WILL BRING IN HOME MEDICATION clopidogrel 75 mg tablet 75 mg PO DAILY cholecalciferol (vitamin D3) 25 mcg (1,000 unit) capsule 25 mcg PO .MWF docusate sodium 100 mg tablet 100 - 200 mg PO QHS Qty: 90 1RF acetaminophen [Tylenol Extra Strength] 500 mg tablet 500 mg PO Q6H PRN (Reason: pain) Qty: 120 5RF mecobalamin (vitamin B12) 1,000 mcg tablet,disintegrating 1,000 mcg PO EVERY OTHER DAY Qty: 90 1RF Rx Instructions: Friday, Friday, Friday carbidopa-levodopa 25-100 mg tablet 1 tablet PO TID Qty: 300 2RF calcium carbonate-vitamin D3 600 mg-10 mcg (400 unit) tablet 1 tablet PO BID Qty: 180 0RF levothyroxine 75 mcg tablet See Rx Instructions .ROUTE .COMPLEX Qty: 30 1RF Dose Instruction: TAKE 1 TABLET BY MOUTH ONCE DAILY Rx Instructions: TAKE 1 TABLET BY MOUTH ONCE DAILY methylprednisolone [Medrol (Samuel)] 4 mg tablets,dose pack See Rx Instructions PO PER PKG DIR Qty: 21 0RF Rx Instructions: PO PER PKG DIR sotalol 80 mg tablet 80 mg PO BID Qty: 90 1RF Follow-up/Referrals: Theodore Farrar MD [Primary Care Provider, Family Practice]
[2025-07-24] MEDS: ONDANSETRON INJ 4 MG/2 ML VIAL IV PUSH (12:04)
[2025-07-24] MEDS: METOPROLOL TARTRATE INJ 5 MG/5 ML VIAL IV PUSH (12:04)
[2025-07-24] MEDS: MORPHINE SULFATE (*CRX) 4 MG/ML INJ 2 MG IV PUSH (12:05)
[2025-07-24] MEDS: SOTALOL HCL 80 MG TABLET PO (12:55)
[2025-07-24 14:12] LABS: Hematocrit 36.9 % (37.0-47.0); Hemoglobin 12.3 g/dL (12.0-15.0); Immature Granulocyte Percent A 0.3 % (0-0.5); Lymphocytes Absolute Auto 1.31 K/mm3 (0.9-3.2); Mean Corpuscular HGB Conc 33.3 g/dl (32-36); Mean Corpuscular Hemoglobin 33.0 pg (26-34); Mean Corpuscular Volume 98.9 fl (80-100); Nucleated Red Blood Cells Absolute Auto 0.000 K/mm3 (0.0-0.012); Nucleated Red Blood Cells Perc 0.0 % (0.0-0.2); Platelet Count Result 264 k/mm3 (150-375); Red Blood Count 3.73 M/mm3 (4.2-5.4); White Blood Count 6.3 K/mm3 (4.5-10.0)
[2025-07-24 14:22] LABS: Alanine Aminotransferase 15 U/L (6-35); Albumin Level 4.0 g/dL (3.5-5.1); Alkaline Phosphatase 67 U/L (38-126); Anion Gap 5 mmol/L (4-12); Aspartate Amino Transferase 32 U/L (14-36); Bilirubin,Total 0.5 mg/dL (0.2-1.3); Blood Urea Nitrogen 21 mg/dL (7-17); Calcium 8.9 mg/dL (8.4-10.2); Carbon Dioxide 26 mmol/L (22-30); Chloride 108 mmol/L (98-107); Estimated CRCL calculation 46 ml/min; Estimated Glomerular Filt Rate > 60; Glucose 104 mg/dL (65-110); Potassium 4.4 mmol/L (3.4-5.0); Sodium 139 mmol/L (137-145); Total Protein 7.5 g/dL (6.3-8.2); Triglycerides 140 mg/dL (<150)
[2025-07-24 14:24] LABS: INR 1.2; Prothrombin Time 15.2 Seconds (11.1-14.7)
[2025-07-24 14:25] LABS: Partial Thromboplastin Time 28.0 Seconds (22.3-36.8)
[2025-07-24 14:34] LABS: NT Pro B Type Natriuretic Pept 2670 pg/mL (19.9-100); Troponin I < 0.012 ng/mL (0.000-0.034)
[2025-07-24] MEDS: dilTIAZem 100 MG/100 ML 100 MG/100 ML BAG IV CONT ×2 (15:10→20:38)
[2025-07-24] MEDS: FUROSEMIDE INJ 40 MG/4 ML VIAL IV PUSH (16:21)
--- NOTE | 2025-07-24 16:27 | PC.NURSE ---
This patient, Maame Frias, was admitted to IMU Room 205-01. Patient/family oriented to hospital policies and general routines including ID bracelet, bed and alarms, visiting hours, pain management, procedures, bathroom and other care routines, personal items, smoking policy, room service/diet, and visiting hours. Information on how to activate the Rapid Response Team has been discussed. Patient/Family are encouraged to report perceived risks to care and to ask questions if they do not understand what they are told or what they should do.
--- NOTE | 2025-07-24 16:56 | PM.IMHP ---
H&P: HPI History of Present Illness Date/Time: 07/24/25 16:56 Chief Complaint: Left knee and hip pain; rapid heart rate Narrative: A 4-year-old female with past medical history of Parkinson's, AFib, PE, frequent falls, hypothyroidism, cerebral palsy, seizure disorder presents to the ED from [facility] on 07/24/2025 with complaints of left knee and hip pain status post fall on 07/23/2025. She bent over to pick something up off the floor and lost her balance landing on the left side of her body. She was still hurting today and felt like she was in AFib so she presented to the ED. Patient states she has been experiencing dyspnea on exertion for the past month that has ?slowly come on.? Denies chest pain, fever, cough, nausea vomiting. Denies head or neck pain post fall. Patient was in the ED on 07/16 after a separate fall. EKG on that date was 8 atrial flutter/tachycardia with RVR. Initial vital signs 140/90, 149 heart rate, 18 respirations, afebrile and 97% on room air. Labs mostly unremarkable or at her baseline with the exception of BUN 21, creatinine 0.68, chloride 108, BNP 2670. Troponins flat ECG shows AFib RVR X-ray of hip/pelvis, knee do not show any fractures or dislocations. CT head with no acute intracranial findings. Chest x-ray shows CHF with moderate pulmonary venous congestion and small basilar infiltrates noted. Review of Systems Review of Systems: All systems reviewed & are unremarkable except as noted in HPI and below PMFSH Past Medical History Medical History (Updated 07/24/25 @ 23:22 by Cici Anaya APRN) Parkinsons disease Chronic anticoagulation Arthritis Paroxysmal atrial fibrillation history of cardioversion in 12/2023 Pulmonary embolism (11/2023) Constipation Wears glasses Lumbar radiculopathy Vitamin D deficiency Low vitamin D level Hypertension Vitamin D deficiency Hypothyroidism Cerebral palsy Patient denies this diagnosis but states she has had right-sided weakness and spasticity since . 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 Code status: Full code. Smoking status: Never smoker Second hand tobacco smoke exposure: No Alcohol intake: never Substance use: never Substance use type: does not use Do You Feel Safe in your Home?: Yes Lack of Transportation: No Lack of Food: Never True Current Housing: I Have Housing Concerned About Future Housing: No Difficulty Paying Gas/Electric Bills: No Difficulty Paying for Meds: No Currently Unemployed: No Education: High School Diploma/GED Difficulty w/ Childcare or Family Care: Decline to Answer Living arrangements: assisted living Additional living arrangements comments: . Occupation/Education: retired Gender identity (if verbalized by the patient): Female Spiritual care concerns: No Meds Home Medications and Allergies Home Medications ?Medication ?Instructions ?Recorded ?Confirmed ?Type mecobalamin (vitamin B12) 1,000 1,000 mcg PO EVERY OTHER DAY #90 11/23/24 07/24/25 Rx mcg disintegrating tabs tablet,sublingual cholecalciferol (vitamin D3) 25 25 mcg PO DAILY 12/27/24 07/24/25 History mcg (1,000 unit) capsule clopidogrel 75 mg tablet 75 mg PO DAILY 12/27/24 07/24/25 History Dilantin Extended 100 mg capsule 100 mg PO TID #300 caps 03/28/25 07/24/25 Rx (phenytoin sodium extended) phenobarbital 30 mg tablet 30 mg PO TID #90 tabs 03/28/25 07/24/25 Rx carbidopa 25 mg-levodopa 100 mg 1 tablet PO TID #300 tabs 04/11/25 07/24/25 Rx tablet apixaban 5 mg tablet (Eliquis) 5 mg PO Q12H 05/10/25 07/24/25 History levothyroxine 75 mcg tablet See Rx Instructions .Route 06/07/25 07/24/25 Rx .COMPLEX #30 tabs acetaminophen 500 mg tablet 1,000 mg PO Q6H PRN pain 07/24/25 07/24/25 History (Tylenol Extra Strength) aspirin 81 mg chewable tablet 1 tablet PO DAILY 07/24/25 07/24/25 History calcium 600 mg (as 1 tablet PO Q12H 07/24/25 07/24/25 History carbonate)-vitamin D3 10 mcg (400 unit) tablet docusate sodium 100 mg tablet 100 mg PO QHS 07/24/25 07/24/25 History furosemide 20 mg tablet 20 mg PO DAILY 07/24/25 07/24/25 History auahgfjx-ekvi-bncj 8 mg-folic 400 1 tablet PO DAILY 07/24/25 07/24/25 History mcg-K 50 mcg-lutein 300 mcg tablet (Multivitamin Women 50 Plus) pantoprazole 40 mg tablet,delayed 40 mg PO DAILY 07/24/25 07/24/25 History release sotalol 80 mg tablet 80 mg PO Q12H 07/24/25 07/24/25 History Allergies Allergy/AdvReac Type Severity Reaction Status Date / Time No Known Allergies Allergy Verified 07/24/25 16:54 Vital Signs Vital Signs - 24 hr 07/24/25 11:30 07/24/25 12:04 07/24/25 12:10 Temperature 97.8 F Pulse Rate 149 H 119 H 127 H Respiratory Rate 18 18 Blood Pressure 140/90 140/98 H Pulse Oximetry 97 92 Oxygen Delivery Room Air Oxygen Flow Rate 07/24/25 12:55 07/24/25 13:00 07/24/25 13:14 Temperature Pulse Rate 125 H 137 H Respiratory Rate 18 Blood Pressure 136/99 H Pulse Oximetry 93 Oxygen Delivery Nasal Cannula Oxygen Flow Rate 2 07/24/25 14:17 07/24/25 15:10 07/24/25 15:11 Temperature Pulse Rate 146 H 80 94 Respiratory Rate 16 18 Blood Pressure 122/89 125/81 125/81 Pulse Oximetry 92 93 Oxygen Delivery Oxygen Flow Rate 07/24/25 15:59 07/24/25 16:15 Temperature Pulse Rate 81 81 Respiratory Rate 22 H 18 Blood Pressure 113/94 H 133/73 Pulse Oximetry 95 100 Oxygen Delivery Oxygen Flow Rate Exam Narrative: GENERAL: non-toxic appearing, in no acute distress. HEAD: Normocephalic, atraumatic. EYES: PERRLA. Conjunctivae clear. NOSE: Normal no drainage. THROAT: Pharynx clear, no exudate. NECK: Trachea midline. No adenopathy, no masses. RESPIRATORY: Airway patent, respirations nonlabored. CTA. CARDIOVASCULAR: Irregular rhythm BREASTS: Defer GASTROINTESTINAL: Abdomen is soft and nontender. No organomegaly. Bowel sounds normal in all quadrants. GENITOURINARY: Defer MUSCULOSKELETAL: Moves all extremities. No gross deformities. No calf tenderness. SKIN: Warm, dry, normal color. NEURO: A&O X4. Speech clear PSYCHIATRIC: Normal interaction H&P: Results Labs Labs: Short CBC 07/24/25 Range/Units 14:05 WBC 6.3 (4.5-10.0) K/mm3 Hgb 12.3 (12.0-15.0) g/dL Hct 36.9 L (37.0-47.0) % Plt Count 264 (150-375) k/mm3 BMP 07/24/25 14:05 Sodium 139 Potassium 4.4 Chloride 108 H Carbon Dioxide 26 BUN 21 H Creatinine 0.68 L Glucose 104 Calcium 8.9 Cardiac Enzymes 07/24/25 Range/Units 14:05 Troponin I < 0.012 (0.000-0.034) ng/mL Liver Function 07/24/25 Range/Units 14:05 Total Bilirubin 0.5 (0.2-1.3) mg/dL AST 32 (14-36) U/L ALT 15 (6-35) U/L Alkaline Phosphatase 67 (38-126) U/L Albumin 4.0 (3.5-5.1) g/dL Assessment and Plan Assessment and plan (1) Atrial fibrillation with rapid ventricular response: Code(s): I48.91 - Unspecified atrial fibrillation Status: Acute Assessment and Plan: Patient with chronic AFib on 80 mg sotalol Q12. ECG shows AFib RVR. No associated symptoms such as chest pain, shortness a breath. Troponins negative. Patient states she has been cardioverted around 5 times and her AFib has recently become apparently resistant to sotalol. Patient further states that she and her application security architect agreed that she would not be cardioverted any further. -10 mg diltiazem push in ED failed to convert patient. -diltiazem drip 5 milligrams/hour -cardiology consult -continue sotalol -continue Eliquis (2) CHF (congestive heart failure): Qualifiers: Heart failure type: unspecified Heart failure chronicity: chronic Qualified Code(s): I50.9 - Heart failure, unspecified Code(s): I50.9 - Heart failure, unspecified Status: Chronic Assessment and Plan: Patient with a history of CHF and complains of recent dyspnea on exertion. Chest x-ray consistent with CHF. BNP 2670. - most recent echo on 11/29/2023 shows AFib with an EF of greater than 70 - monitor I&Os and daily weights - trend renal function -40 mg IV push Lasix given in ED -continue 20 mg p.o. Lasix (3) Parkinsons disease: Qualifiers: Dyskinesia presence: with dyskinesia Fluctuating manifestations: unspecified whether manifestations fluctuate Qualified Code(s): G20.B1 - Parkinson's disease with dyskinesia, without mention of fluctuations Code(s): G20.A1 - Parkinson's disease without dyskinesia, without mention of fluctuations Status: Chronic Assessment and Plan: Continue carbidopa/levodopa (4) Seizure disorder: Code(s): G40.909 - Epilepsy, unspecified, not intractable, without status epilepticus Status: Chronic Assessment and Plan: Continue phenobarbital 30 mg q.8 hours Plan Diet: Heart healthy GI prophylaxis: Pantoprazole DVT prophylaxis: SCDs lines/drains: PIV Fluids: NA Code status: Full Quality VTE Prophylaxis VTE prophylaxis: mechanical ordered Hospitalist MIPS Advance Care Plan I have confirmed that the patient's Advanced Care Plan is present, code status is documented, or surrogate decision maker is listed in patient medical record.: Yes Medication Reconciliation I have utilized all available resources to obtain, update and review the patients current medications (includes all prescriptions, OTC, herbals, cannabis, and nutritional supplements).: Yes
[2025-07-24] MEDS: CARBIDOPA/LEVODOPA 25/100 MG TABLET 1 TABLET PO (17:50)
[2025-07-24 19:21] LABS: Troponin I < 0.012 ng/mL (0.000-0.034)
[2025-07-24] MEDS: PHENobarbitaL (*CRX) 30 MG TABLET PO (20:38)
[2025-07-24] MEDS: DOCUSATE SODIUM 100 MG CAPSULE PO (20:38)
[2025-07-24] MEDS: APIXABAN 5 MG TABLET PO (20:39)
[2025-07-24] MEDS: CALCIUM/VITAMIN D 500 MG/5 MCG (200 I.U.) TABLET PO (20:39)
[2025-07-24] MEDS: DILANTIN 100 MG 1 EACH PO (20:42)
[2025-07-24 21:42] LABS: Troponin I < 0.012 ng/mL (0.000-0.034)
[2025-07-25] VITALS (21 sets, daily range): BP systolic 108–140; BP diastolic 51–82; PULSE 77–116; RESP 14–18; TEMP 36.4–36.8; O2SAT 90–96
--- NOTE | 2025-07-25 | ECHO_ITS ---
Patient Info Name: Maame Frias Age: 84 years : 1940 Gender: Female Ht: 64 in Wt: 140 lbs BSA: 1.70 m2 HR: 97 bpm BP: 125 / 56 mmHg Technical Quality: Good Exam Date: 07/25/2025 10:23 AM Patient Status: I Admit Date: 07/25/2025 Exam Type: CA echo doppler color flow Complete two-dimensional, color flow and Doppler transthoracic echocardiogram is performed. Staff Referring Physician: Jersey Granados MD [employer] Fe[employer]: Wilfredo Carreno III Attending Provider: Aris Bustos Summary 1. Complete two-dimensional, color flow and Doppler transthoracic echocardiogram is performed. 2. There is normal biventricular size and systolic function. 3. There is left ventricular diastolic dysfunction. 4. The left atrium is moderately dilated. 5. The mitral valve leaflets are sclerotic. There is mitral annular calcification. There is no mitral stenosis. There is mild mitral regurgitation. 6. Normal inferior vena cava with <50% collapse upon inspiration consistent with elevated right atrial pressure, 8 mmHg. 7. Pulmonary arterial systolic pressure is estimated at 40 mmHg. There is mild pulmonary hypertension. Left Ventricle The left ventricle is normal in size and systolic function. The left ventricular ejection fraction is visually estimated to be 60-65%. There is diastolic dysfunction. Right Ventricle The right ventricle is normal in size and systolic function. Left Atria The left atrium is moderately dilated. Right Atria The right atrium is mildly dilated. Atrial Septum The atrial septum is normal. Aortic Valve The aortic valve is trileaflet and opens well. There is no aortic regurgitation. Pulmonic Valve The pulmonic valve is grossly normal. There is mild pulmonic valve regurgitation. Mitral Valve The mitral valve leaflets are sclerotic. There is mitral annular calcification. There is no mitral stenosis. There is mild mitral regurgitation. Tricuspid Valve The tricuspid valve is normal. There is mild tricuspid regurgitation. Pulmonary Arteries Pulmonary arterial systolic pressure is estimated at 40 mmHg. There is mild pulmonary hypertension. Pericardium/Pleural Pericardium is normal in appearance with no evidence for significant pericardial effusion. Inferior Vena Cava Normal inferior vena cava with <50% collapse upon inspiration consistent with elevated right atrial pressure, 8 mmHg. Aorta The aortic root at the level of the sinus of Valsalva measures 3.0 cm in diameter. Left Ventricular Outflow Tract Name Value Normal LVOT 2D LVOT Diameter 2.1 cm LVOT Doppler LVOT Peak Velocity 69 cm/s LVOT Peak Gradient 2 mmHg LVOT Mean Gradient 1 mmHg LVOT VTI 15 cm LVOT VTI/AV VTI Ratio 0.6 LVOT Stroke Volume 48 ml LVOT CO 3.8 l/min LVOT CI 2.2 l/min/m2 Pulmonic Valve Name Value Normal PV Regurgitation Doppler AR Peak End Diastolic Velocity 128 cm/s Mitral Valve Name Value Normal MV Doppler MV Peak Gradient 5 mmHg MV Mean Gradient 2 mmHg MV Area (Cont Eq VTI) 2.5 cm2 MV Regurgitation Doppler MR Peak Gradient 100 mmHg MV Diastolic Function MV E Peak Velocity 131 cm/s MV A Peak Velocity 2 cm/s MV E/A 66.8 MV Decel Time (PW) 132 ms MV Annular TDI MV E/e' (Septal) 24.4 MV E/e' (Lateral) 16.7 MV E/e' (Average) 20.5 Tricuspid Valve Name Value Normal TV Regurgitation Doppler TR Peak Velocity 284 cm/s TR Peak Gradient 32 mmHg Estimated PAP/RSVP RA Pressure 8 mmHg <=5 PA Systolic Pressure 40 mmHg <36 RV Systolic Pressure 40 mmHg <36 TV Annular TDI TV Lateral Ashlie s' Velocity 7.8 cm/s >=9.5 Aortic Valve Name Value Normal AV Doppler AV Peak Velocity 112 cm/s AV Peak Gradient 5 mmHg AV Mean Gradient 2 mmHg AV VTI 23 cm AV Area (Cont Eq VTI) 2.1 cm2 >=3.0 AV Area (Cont Eq Bishnu) 2.1 cm2 AV DI (Bishnu) 0.62 AV Regurgitation 2D LVOT Area 3.3 cm2 Ventricles Name Value Normal LV Dimensions 2D/MM IVS Diastolic Thickness (2D) 0.9 cm 0.6-1.0 LVID Diastole (2D) 4.0 cm 3.8-5.2 LVIW Diastolic Thickness (2D) 1.0 cm 0.6-0.9 LVID Systole (2D) 2.8 cm 2.2-3.5 LVOT Diameter 2.1 cm LV Mass (2D Cubed) 122.45 g 67.00-162.00 LV Mass Index (2D Cubed) 72 g/m2 43-95 Relative Wall Thickness (2D) 0.51 <=0.42 LV Fractional Shortening/Ejection Fraction 2D/MM LV Fractional Shortening (2D) 30 % 27-45 LV EF (2D Teichholz) 57 % LV Diastolic Volume (4C MOD) 32 ml LV EF (4C MOD) 61 % LV Diastolic Volume (2C MOD) 37 ml LV EF (2C MOD) 54 % LV Diastolic Volume (BP MOD) 37 ml 46-106 LV Diastolic Volume Index (BP MOD) 22 ml/m2 29-61 LV Systolic Volume (BP MOD) 15 ml 14-42 LV Systolic Volume Index (BP MOD) 9 ml/m2 8-24 LV EF (BP MOD) 60 % 54-74 LV Diastolic Length (4C) 5.4 cm LV Systolic Length (4C) 4.9 cm LV Stroke Volume (4C MOD) 19 ml Atria Name Value Normal LA Dimensions LA Volume (4C A-L) 75 ml LA Volume (BP A-L) 78 ml RA Dimensions RA Systolic Major [place] Length (4C) 6.0 cm 2.2-2.8 RA Area (4C) 20.1 cm2 <=18.0 Report Signatures
[2025-07-25 04:26] LABS: Hematocrit 35.2 % (37.0-47.0); Hemoglobin 11.5 g/dL (12.0-15.0); Immature Granulocyte Percent A 0.2 % (0-0.5); Lymphocytes Absolute Auto 0.95 K/mm3 (0.9-3.2); Mean Corpuscular HGB Conc 32.7 g/dl (32-36); Mean Corpuscular Hemoglobin 32.8 pg (26-34); Mean Corpuscular Volume 100.3 fl (80-100); Nucleated Red Blood Cells Absolute Auto 0.000 K/mm3 (0.0-0.012); Nucleated Red Blood Cells Perc 0.0 % (0.0-0.2); Platelet Count Result 245 k/mm3 (150-375); Red Blood Count 3.51 M/mm3 (4.2-5.4); White Blood Count 5.1 K/mm3 (4.5-10.0)
[2025-07-25 04:44] LABS: Alanine Aminotransferase 10 U/L (6-35); Albumin Level 3.7 g/dL (3.5-5.1); Alkaline Phosphatase 68 U/L (38-126); Anion Gap 9 mmol/L (4-12); Aspartate Amino Transferase 29 U/L (14-36); Bilirubin,Total 0.4 mg/dL (0.2-1.3); Blood Urea Nitrogen 22 mg/dL (7-17); Calcium 9.1 mg/dL (8.4-10.2); Carbon Dioxide 26 mmol/L (22-30); Chloride 105 mmol/L (98-107); Estimated CRCL calculation 39 ml/min; Estimated Glomerular Filt Rate > 60; Glucose 94 mg/dL (65-110); Potassium 3.8 mmol/L (3.4-5.0); Sodium 140 mmol/L (137-145); Total Protein 7.0 g/dL (6.3-8.2)
[2025-07-25 05:20] LABS: Thyroid Stimulating Hormone Reflex 2.700 uIU/mL (0.465-4.68)
[2025-07-25] MEDS: PHENobarbitaL (*CRX) 30 MG TABLET PO ×3 (06:13→20:45)
[2025-07-25] MEDS: LEVOTHYROXINE SODIUM 75 MCG TABLET BY MOUTH (06:36)
--- NOTE | 2025-07-25 06:53 | P.PNIM_ITS ---
Progress Note: A&P Assessment and Plan (1) Atrial fibrillation with rapid ventricular response: Code(s): I48.91 - Unspecified atrial fibrillation Status: Acute Assessment and Plan: Patient with chronic AFib on 80 mg sotalol Q12 and Eliquis 5 mg q12 ECG shows AFib RVR. No associated symptoms such as chest pain, shortness a breath. Troponin negative. Recurrent afib despite several cardioversion attempts. Patient reports a history of amulet LAAO placement by Dr. Couch at [facility] LAAO leakage thus patient remains on eliquis and is currently holding plavix Primary cardiology: Dr. Marin -10 mg diltiazem push in ED failed to convert patient, started on diltiazem drip 5 milligrams/hour -continue sotalol 80 mg q12 and Eliquis 5 mg q12 - tele monitor reviewed, afib with HR in the upper 80s-100 - echo: systolic function is normal with noted diastolic dysfunction prior echo 11/29/23: LVEF >70% with with mitral and tricuspid regurgitation -cardiology consult Refer patient to electrophysiology for ablation for atrial flutter Start metoprolol tartrate 25 mg q.i.d.. Continue with Lasix 40 mg IV push today, then switch to oral Lasix. Continue with sotalol 80 mg q.12 hours. Not transitioning to oral Cardizem due to cocurrent phenobarbital use. Cardiology titrating down diltiazem drip now that metoprolol has been started. (2) CHF (congestive heart failure): Qualifiers: Heart failure chronicity: chronic Heart failure type: unspecified Qual ified Code(s): I50.9 - Heart failure, unspecified Code(s): I50.9 - Heart failure, unspecified Status: Chronic Assessment and Plan: Patient with a history of CHF and complains of recent dyspnea on exertion. Possible that CHF exacerbation related to afib RVR - Recieved 40 mg IV lasix n the ED, remains on her home 20 mg PO lasix - BNP: 2670 - EKG on admission showed Afib RVR HR 131 - Chest XR: CHF - echo ordered prior echo 11/29/23: LVEF >70% with with mitral and tricuspid regurgitation - Monitor vital signs, I&Os, BUN/creatinine, daily weights, neuro status and patient is a fall risk - Monitor serum electrolytes, Keep serum Potassium>4 and serum Magnesium>2 and CBC Appears euvolemic. Denies shortness of breath with clear lung sounds and no edema. (3) Fall: Code(s): W19.XXXA - Unspecified fall, initial encounter Status: Acute Assessment and Plan: Mechanical [facility] fall at the [facility] onto the left side resulting in left knee and hip pain Denies dizziness/lightheadedness prior to fall - Head CT: no acute intracranial abnormality - Knee and hip XR: Unremarkable - PT/OT (4) Parkinsons disease: Qualifiers: Dyskinesia presence: with dyskinesia Fluctuating manifestations: unspecified whether manifestations fluctuate Qualified Code(s): G20.B1 - Parkinson's disease with dyskinesia, without mention of fluctuations Code(s): G20.A1 - Parkinson's disease without dyskinesia, without mention of fluctuations Status: Chronic Assessment and Plan: Continue carbidopa/levodopa (5) Seizure disorder: Code(s): G40.909 - Epilepsy, unspecified, not intractable, without status epilepticus Status: Chronic Assessment and Plan: Continue phenobarbital 30 mg q.8 hours Time Spent With Patient Time with patient: 25 - 35 minutes Subjective Date/time seen: 07/25/25 06:53 Interval history: 84 year old female with past medical history of parkinsons, afib, pe, frequent falls, hypothyroidism, cerebral palsy, seizure disorder presents to the hospital from the [facility] after a mechanical fall onto the left side resulting in left hip and knee pain. Patient is lying comfortably in bed. She has no complaints denying chest pain, shortness a breath, palpitations, nausea/vomiting, abdominal pain. Patient continues to endorse slight left knee pain but denies any pain with range of motion. Review of Systems Review of Systems: All systems reviewed & are unremarkable except as noted in HPI and below Exam Narrative: AF HR 86 RR 14 SpO2 92 BP 121/63 General: female in no acute respiratory distress who is nontoxic appearing, lying semi recumbent in bed. HEENT: Normocephalic. Atraumatic. Extraocular movement intact. Sclera clear and anicteric. No facial asymmetry. Chest: Lungs are clear to auscultation bilaterally. No wheezes or crackles. CV: Heart was irregular irregular rate and rhythm. Abd: Abdomen was soft. Nontender. Nondistended. Positive bowel sounds. Ext: No clubbing, cyanosis, or edema. DP pulses bilaterally. Neuro: Patient is alert. Speech is clear. Objective Data Vital Signs Vital Signs: Vital Signs - 24 hr 07/24/25 11:30 07/24/25 12:04 07/24/25 12:10 Temperature 97.8 F Pulse Rate 149 H 119 H 127 H Respiratory Rate 18 18 Blood Pressure 140/90 140/98 H Pulse Oximetry 97 92 Oxygen Delivery Room Air Oxygen Flow Rate 07/24/25 12:55 07/24/25 13:00 07/24/25 13:14 Temperature Pulse Rate 125 H 137 H Respiratory Rate 18 Blood Pressure 136/99 H Pulse Oximetry 93 Oxygen Delivery Nasal Cannula Oxygen Flow Rate 2 07/24/25 14:17 07/24/25 15:10 07/24/25 15:11 Temperature Pulse Rate 146 H 80 94 Respiratory Rate 16 18 Blood Pressure 122/89 125/81 125/81 Pulse Oximetry 92 93 Oxygen Delivery Oxygen Flow Rate 07/24/25 15:59 07/24/25 16:15 07/24/25 17:30 Temperature Pulse Rate 81 81 Respiratory Rate 22 H 18 Blood Pressure 113/94 H 133/73 Pulse Oximetry 95 100 Oxygen Delivery Room Air Oxygen Flow Rate 07/24/25 18:00 07/24/25 19:58 07/24/25 20:00 Temperature 98.1 F Pulse Rate 97 100 100 Respiratory Rate 16 Blood Pressure 112/78 112/78 Pulse Oximetry 94 Oxygen Delivery Oxygen Flow Rate 07/24/25 20:00 07/24/25 20:00 07/24/25 20:38 Temperature Pulse Rate 87 76 Respiratory Rate Blood Pressure Pulse Oximetry Oxygen Delivery Room Air Oxygen Flow Rate 07/24/25 20:38 07/24/25 22:00 07/24/25 22:00 Temperature Pulse Rate 76 79 81 Respiratory Rate Blood Pressure 116/72 Pulse Oximetry Oxygen Delivery Oxygen Flow Rate 07/25/25 00:00 07/25/25 00:00 07/25/25 00:00 Temperature 98.3 F Pulse Rate 85 77 Respiratory Rate 18 Blood Pressure 112/67 Pulse Oximetry 92 Oxygen Delivery Room Air Oxygen Flow Rate 07/25/25 00:00 07/25/25 02:00 07/25/25 02:00 Temperature Pulse Rate 85 78 80 Respiratory Rate Blood Pressure 112/67 108/66 Pulse Oximetry Oxygen Delivery Oxygen Flow Rate 07/25/25 04:00 07/25/25 04:00 07/25/25 04:00 Temperature 98.3 F Pulse Rate 98 87 Respiratory Rate 18 Blood Pressure 110/64 Pulse Oximetry 90 Oxygen Delivery Room Air Oxygen Flow Rate 07/25/25 04:00 07/25/25 06:00 07/25/25 06:00 Temperature Pulse Rate 98 88 97 Respiratory Rate 16 Blood Pressure 110/64 125/56 L Pulse Oximetry 90 Oxygen Delivery Oxygen Flow Rate 07/25/25 06:00 Temperature Pulse Rate 97 Respiratory Rate Blood Pressure 125/56 L Pulse Oximetry Oxygen Delivery Oxygen Flow Rate Intake/Output Intake/Output: Intake & Output 07/22/25 07/23/25 07/24/25 07/25/25 23:59 23:59 22:59 23:59 Intake Total 80.8 240 Output Total 400 200 Balance -319.2 40 Meds/Results Medications: Active Medications Generic Name Dose Route Start Last Admin Trade Name Freq PRN Reason Stop Dose Admin Acetaminophen 1,000 mg 07/24/25 16:57 Acetaminophen 500 Mg Tablet PO Q6H PRN Pain 1-3 OR FEVER Apixaban 5 mg 07/24/25 21:00 07/24/25 20:39 Apixaban 5 Mg Tablet PO 5 mg Q12HR MANN Administration Aspirin 81 mg 07/25/25 09:00 Aspirin 81 Mg Chewable Tablet PO DAILY MANN Calcium Carbonate 500 mg 07/24/25 21:00 07/24/25 20:39 Calcium/Vitamin D 500 Mg/5 Mcg (200 I.U.) Tablet PO 500 mg Q12HR MANN Administration Carbidopa/Levodopa 1 tablet 07/24/25 17:00 07/24/25 17:50 Carbidopa/Levodopa 25/100 Mg Tablet PO 1 tablet TID MANN Administration Cyanocobalamin 1,000 mcg 07/25/25 09:00 Cyanocobalamin 1,000 Mcg Tablet PO MoWeFr [facility] Docusate Sodium 100 mg 07/24/25 21:00 07/24/25 20:38 Docusate Sodium 100 Mg Capsule PO 100 mg QHS MANN Administration Furosemide 20 mg 07/25/25 09:00 Furosemide 20 Mg Tablet PO DAILY MANN Diltiazem HCl 100 mg in 100 mls @ 5 mls/hr 07/24/25 20:20 07/25/25 06:00 Cardizem 100 Mg/100 Ml IV CONT 5 mg/hr .Q20H MANN 5 mls/hr 5 MG/HR Infusion Levothyroxine Sodium 75 mcg 07/25/25 06:30 07/25/25 06:36 Levothyroxine Sodium 75 Mcg Tablet BY MOUTH 75 mcg DAILY@0630 [facility] Administration Multivitamins/Calcium 1 tablet 07/25/25 09:00 Therapeutic Multivitamins/Minerals Tab (*Bkc) PO DAILY [facility] Home Med Dilantin 1 each 07/24/25 19:45 07/24/25 20:42 100mg Capsules PO 08/23/25 19:44 1 each TID [facility] Administration Pantoprazole Sodium 40 mg 07/25/25 09:00 Pantoprazole 40 Mg Tablet PO DAILY [facility] Perflutren Lipid Microsphere 0 ml 07/24/25 23:26 Perflutren Lipid Microspheres 1.5 Ml Vial Diluted To 10 Ml Total Volume IV PUSH 07/27/25 23:26 ONCE PRN adequate visualization Protocol Phenobarbital 30 mg 07/24/25 22:00 07/25/25 06:13 Phenobarbital (*Crx) 30 Mg Tablet PO 30 mg Q8HR [facility] Administration Sotalol HCl 80 mg 07/25/25 09:00 Sotalol Hcl 40 Mg Tablet PO Q12HR [facility] Vitamin D 25 mcg 07/25/25 09:00 Cholecalciferol (Vitamin D3) 25 Mcg (1,000 Units) Tablet PO DAILY [facility] Radiology Results: ITS Impressions Head CT 07/24/25 12:48 IMPRESSION: 1. No acute intracranial findings. Chest X-Ray 07/24/25 14:11 Impression: CHF Labs Labs: Laboratory Results - last 24 hr 07/24/25 07/24/25 07/24/25 14:05 18:50 21:09 WBC 6.3 RBC 3.73 L Hgb 12.3 Hct 36.9 L MCV 98.9 MCH 33.0 MCHC 33.3 RDW 14.6 H Plt Count 264 MPV 8.8 Immature Gran % (Auto) 0.3 Neut % (Auto) 66.9 Lymph % (Auto) 21.0 [place]ites[place] % (Auto) 8.0 Eos % (Auto) 3.2 Baso % (Auto) 0.6 Lymph # (Auto) 1.31 [place] # (Auto) 0.5 Eos # (Auto) 0.2 Baso # (Auto) 0.0 Abs Immat Gran (auto) 0.02 Absolute Neuts (auto) 4.2 Absolute Nucleated RBC 0.000 Nucleated RBC % 0.0 PT 15.2 H INR 1.2 APTT 28.0 Sodium 139 Potassium 4.4 Chloride 108 H Carbon Dioxide 26 Anion Gap 5 BUN 21 H Creatinine 0.68 L Estim Creat Clear Calc 46 Estimated GFR > 60 Glucose 104 Calcium 8.9 Total Bilirubin 0.5 AST 32 ALT 15 Alkaline Phosphatase 67 Troponin I < 0.012 < 0.012 < 0.012 NT-Pro-B Natriuret Pep 2670 H Total Protein 7.5 Albumin 4.0 Triglycerides 140 TSH (Reflex) 07/25/25 04:04 WBC 5.1 RBC 3.51 L Hgb 11.5 L Hct 35.2 L MCV 100.3 H MCH 32.8 MCHC 32.7 RDW 14.7 H Plt Count 245 MPV 9.2 Immature Gran % (Auto) 0.2 Neut % (Auto) 65.3 Lymph % (Auto) 18.5 [place] % (Auto) 10.5 H Eos % (Auto) 4.5 H Baso % (Auto) 1.0 Lymph # (Auto) 0.95 [place] # (Auto) 0.5 Eos # (Auto) 0.2 Baso # (Auto) 0.1 Abs Immat Gran (auto) 0.01 Absolute Neuts (auto) 3.4 Absolute Nucleated RBC 0.000 Nucleated RBC % 0.0 PT INR APTT Sodium 140 Potassium 3.8 Chloride 105 Carbon Dioxide 26 Anion Gap 9 BUN 22 H Creatinine 0.80 Estim Creat Clear Calc 39 Estimated GFR > 60 Glucose 94 Calcium 9.1 Total Bilirubin 0.4 AST 29 ALT 10 Alkaline Phosphatase 68 Troponin I NT-Pro-B Natriuret Pep Total Protein 7.0 Albumin 3.7 Triglycerides TSH (Reflex) 2.700 Quality VTE Prophylaxis VTE prophylaxis: mechanical ordered and pharmacologic ordered
--- NOTE | 2025-07-25 09:23 | PM.CNCAR ---
Assessment and Plan Assessment and plan (1) CHF (congestive heart failure): Qualifiers: Heart failure chronicity: chronic Heart failure type: unspecified Qualified Code(s): I50.9 - Heart failure, unspecified Code(s): I50.9 - Heart failure, unspecified Status: Chronic (2) Parkinsons disease: Qualifiers: Dyskinesia presence: with dyskinesia Fluctuating manifestations: unspecified whether manifestations fluctuate Qualified Code(s): G20.B1 - Parkinson's disease with dyskinesia, without mention of fluctuations Code(s): G20.A1 - Parkinson's disease without dyskinesia, without mention of fluctuations Status: Chronic (3) Atrial flutter with rapid ventricular response: Code(s): I48.92 - Unspecified atrial flutter Status: Chronic (4) Chronic anticoagulation: Code(s): Z79.01 - continuous churn buttermaker (current) use of anticoagulants Status: Acute (5) S/P total hip arthroplasty: Qualifiers: Laterality: left Qualified Code(s): Z96.642 - Presence of left artificial hip joint Code(s): Z96.649 - Presence of unspecified artificial hip joint Status: Acute Assessment and Plan: 1. Patient with known history of atrial flutter fibrillation presents with fall and was found to have atrial flutter with increased ventricular response at home at 130-140 per minute. Status post cardioversion on 12/29/2024. Patient currently on sotalol and Eliquis and Eliquis. 2. Negative cardiac enzymes for acute coronary syndrome. 3. Acute on chronic diastolic heart failure, ProBNP was 2670. Previous echocardiogram reviewed from November of 2023 which showed normal left ventricular size and systolic function estimated at 70%. Patient has moderate left ventricular hypertrophy with severely enlarged left atrium and mild to moderate mitral regurgitation and mild tricuspid regurgitation. Patient is on furosemide 20 mg daily at home but 4. Chronic anticoagulation therapy with apixaban 5 mg b.i.d.. Patient is also on aspirin and clopidogrel. This can create high risk score patient is 84 years old for bleeding. 5. History of hypertension, hypothyroidism, pulmonary embolism and Parkinson's disease as well as seizure disorder. Plan #. Currently blood pressure is 125/56 and heart rate is 90-101 per minute. Patient is currently on Cardizem drip. #. Patient is chronically recurrent atrial flutter despite cardioversion x2. Patient needs ablation for atrial flutter. #. Hemoglobin is stable at 11.5 despite triple regimen including apixaban, aspirin and Plavix. High risk for bleeding in view of her age and seizure disorder as well as Parkinson's disease. Reassess need for all 3 medications and perhaps okay to discontinue Plavix. #. Will refer patient to electrophysiology for ablation for atrial flutter as well as placement of left atrial appendage occluder device like Watchman device. #. Will start patient on immediate release metoprolol tartrate 25 mg q.i.d.. Oral diltiazem immediate release tablet will interfere with phenobarbital. Continue with Lasix 40 mg IV push for 1 more day and then switch to oral Lasix and continue with sotalol 80 mg q.12 hours. #. Follow-up echocardiogram since not done for last 1 year. History of Present Illness History of Present Illness Consult date/time: 07/25/25 09:23 Requesting physician: Cici Anaya APRN Consult reason: atrial fibrillation Reason For Visit: Afib with RVR CHF Narrative: Patient is at 84-year-old female admitted via emergency room on 07/24/2025 with complaints of left knee and left hip pain patient apparently lost her balance and fell on the left side with complaints of pain in the left hip and left knee. Patient has past medical history significant for atrial fibrillation for which she takes sotalol 80 mg b.i.d. and Eliquis 5 mg daily. No associated abdominal pain, nausea vomiting or diarrhea. No complaints of chest pain, shortness of breath, fever or chills. EKG in the emergency room revealed atrial flutter with rapid ventricular response and the ventricular rate at 131 per minute. Previous EKG reviewed from June of 2025 which also revealed atrial flutter with rapid ventricular response. Past medical history significant for Parkinson's disease, history of pulmonary embolism, hypertension, hypothyroidism, history of cerebral palsy and seizure disorder. 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 Admitting blood pressure was 140/90 and respirations are 18 per minute. Patient was afebrile and 97% O2 saturation on room air. CT scan of the head without contrast was negative for any acute pathology. X-ray of the left hip and pelvis and left knee showed normal acute fracture. Patient was given 5 mg of IV Lopressor and subsequently started on Cardizem bolus and drip. Admitting laboratory data revealed WBC count of 6.3, hemoglobin is 12.3, platelets are 264,000. Sodium 139, potassium is 4.4, BUN is 21, creatinine is 0.68. Review of Systems Review of Systems: Twelve point review of system was completed. Pertinent positive and negative findings per HPI. Constitutional negative for fever or chills or weight loss. Positive for weakness and fall Head and neck negative for icterus, decreased hearing Pulmonary system negative for shortness of breath, cough or hemoptysis. Cardiac system negative for chest pain, shortness of breath or palpitation or dizziness Gastrointestinal system negative for abdominal pain, nausea vomiting or diarrhea Neurovascular negative for any new neurological symptoms, seizures, syncope, focal neurological symptoms. Musculoskeletal positive for fall and pain in the hip and knee joint. Patient is age-related arthritis Skin is intact without rash. [facility] Past Medical History Medical History Parkinsons disease Chronic anticoagulation Arthritis Paroxysmal atrial fibrillation history of cardioversion in 12/2023 Pulmonary embolism (11/2023) Constipation Wears glasses Lumbar radiculopathy Vitamin D deficiency Low vitamin D level Hypertension Vitamin D deficiency Hypothyroidism Cerebral palsy Patient denies this diagnosis but states she has had right-sided weakness and spasticity since . 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 Code status: Full code. Smoking status: Never smoker Second hand tobacco smoke exposure: No Alcohol intake: never Substance use: never Substance use type: does not use Do You Feel Safe in your Home?: Yes Lack of Transportation: No Lack of Food: Never True Current Housing: I Have Housing Concerned About Future Housing: No Difficulty Paying Gas/Electric Bills: No Difficulty Paying for Meds: No Currently Unemployed: No Education: High School Diploma/GED Difficulty w/ Childcare or Family Care: Decline to Answer Living arrangements: assisted living Additional living arrangements comments: . Occupation/Education: retired Gender identity (if verbalized by the patient): Female Spiritual care concerns: No Meds Home Medications and Allergies Home Medications ?Medication ?Instructions ?Recorded ?Confirmed ?Type mecobalamin (vitamin B12) 1,000 1,000 mcg PO EVERY OTHER DAY #90 11/23/24 07/24/25 Rx mcg disintegrating tabs tablet,sublingual cholecalciferol (vitamin D3) 25 25 mcg PO DAILY 12/27/24 07/24/25 History mcg (1,000 unit) capsule clopidogrel 75 mg tablet 75 mg PO DAILY 12/27/24 07/24/25 History Dilantin Extended 100 mg capsule 100 mg PO TID #300 caps 03/28/25 07/24/25 Rx (phenytoin sodium extended) phenobarbital 30 mg tablet 30 mg PO TID #90 tabs 03/28/25 07/24/25 Rx carbidopa 25 mg-levodopa 100 mg 1 tablet PO TID #300 tabs 04/11/25 07/24/25 Rx tablet apixaban 5 mg tablet (Eliquis) 5 mg PO Q12H 05/10/25 07/24/25 History levothyroxine 75 mcg tablet See Rx Instructions .Route 06/07/25 07/24/25 Rx .COMPLEX #30 tabs acetaminophen 500 mg tablet 1,000 mg PO Q6H PRN pain 07/24/25 07/24/25 History (Tylenol Extra Strength) aspirin 81 mg chewable tablet 1 tablet PO DAILY 07/24/25 07/24/25 History calcium 600 mg (as 1 tablet PO Q12H 07/24/25 07/24/25 History carbonate)-vitamin D3 10 mcg (400 unit) tablet docusate sodium 100 mg tablet 100 mg PO QHS 07/24/25 07/24/25 History furosemide 20 mg tablet 20 mg PO DAILY 07/24/25 07/24/25 History eikbnnav-afgy-oypj 8 mg-folic 400 1 tablet PO DAILY 07/24/25 07/24/25 History mcg-K 50 mcg-lutein 300 mcg tablet (Multivitamin Women 50 Plus) pantoprazole 40 mg tablet,delayed 40 mg PO DAILY 07/24/25 07/24/25 History release sotalol 80 mg tablet 80 mg PO Q12H 07/24/25 07/24/25 History Allergies Allergy/AdvReac Type Severity Reaction Status Date / Time No Known Allergies Allergy Verified 07/24/25 16:54 Vital Signs Vital Signs - 24 hr 07/24/25 11:30 07/24/25 12:04 07/24/25 12:10 Temperature 36.6 C Pulse Rate 149 H 119 H 127 H Respiratory Rate 18 18 Blood Pressure 140/90 140/98 H Pulse Oximetry 97 92 Oxygen Delivery Room Air Oxygen Flow Rate 07/24/25 12:55 07/24/25 13:00 07/24/25 13:14 Temperature Pulse Rate 125 H 137 H Respiratory Rate 18 Blood Pressure 136/99 H Pulse Oximetry 93 Oxygen Delivery Nasal Cannula Oxygen Flow Rate 2 07/24/25 14:17 07/24/25 15:10 07/24/25 15:11 Temperature Pulse Rate 146 H 80 94 Respiratory Rate 16 18 Blood Pressure 122/89 125/81 125/81 Pulse Oximetry 92 93 Oxygen Delivery Oxygen Flow Rate 07/24/25 15:59 07/24/25 16:15 07/24/25 17:30 Temperature Pulse Rate 81 81 Respiratory Rate 22 H 18 Blood Pressure 113/94 H 133/73 Pulse Oximetry 95 100 Oxygen Delivery Room Air Oxygen Flow Rate 07/24/25 18:00 07/24/25 19:58 07/24/25 20:00 Temperature 36.7 C Pulse Rate 97 100 100 Respiratory Rate 16 Blood Pressure 112/78 112/78 Pulse Oximetry 94 Oxygen Delivery Oxygen Flow Rate 07/24/25 20:00 07/24/25 20:00 07/24/25 20:38 Temperature Pulse Rate 87 76 Respiratory Rate Blood Pressure Pulse Oximetry Oxygen Delivery Room Air Oxygen Flow Rate 07/24/25 20:38 07/24/25 22:00 07/24/25 22:00 Temperature Pulse Rate 76 79 81 Respiratory Rate Blood Pressure 116/72 Pulse Oximetry Oxygen Delivery Oxygen Flow Rate 07/25/25 00:00 07/25/25 00:00 07/25/25 00:00 Temperature 36.8 C Pulse Rate 85 77 Respiratory Rate 18 Blood Pressure 112/67 Pulse Oximetry 92 Oxygen Delivery Room Air Oxygen Flow Rate 07/25/25 00:00 07/25/25 02:00 07/25/25 02:00 Temperature Pulse Rate 85 78 80 Respiratory Rate Blood Pressure 112/67 108/66 Pulse Oximetry Oxygen Delivery Oxygen Flow Rate 07/25/25 04:00 07/25/25 04:00 07/25/25 04:00 Temperature 36.8 C Pulse Rate 98 87 Respiratory Rate 18 Blood Pressure 110/64 Pulse Oximetry 90 Oxygen Delivery Room Air Oxygen Flow Rate 07/25/25 04:00 07/25/25 06:00 07/25/25 06:00 Temperature Pulse Rate 98 88 97 Respiratory Rate 16 Blood Pressure 110/64 125/56 L Pulse Oximetry 90 Oxygen Delivery Oxygen Flow Rate 07/25/25 06:00 07/25/25 07:47 Temperature 36.6 C Pulse Rate 97 101 H Respiratory Rate 16 Blood Pressure 125/56 L 125/82 Pulse Oximetry 92 Oxygen Delivery Oxygen Flow Rate Exam Narrative: Patient was examined at the bedside. Patient is awake alert and appears comfortable without shortness of breath or chest pain. In the neck examination is unremarkable. Head is atraumatic. Sclerae is nonicteric. ENT examination is negative Neck is supple. There is no JVD or carotid bruit. Thyroid is not enlarged. There is no cervical lymphadenopathy Lungs are clear to auscultation and percussion Heart sounds reveal normal S1-S2. Soft systolic murmur is noted. There is no S3 or S4. Monitor shows atrial fibrillation with rapid ventricular response with Abdomen is soft and nontender. There is no hepatosplenomegaly probable sounds present Extremities related osteoarthritis. There is no acute swelling of the joint at this time. Status post fall Neurological examination is intact Skin is intact. Results Labs and Meds 07/25/25 04:04 07/25/25 04:04 Lab results: Cardiac Enzymes 07/24/25 07/24/25 07/24/25 Range/Units 14:05 18:50 21:09 AST 32 (14-36) U/L Troponin I < 0.012 < 0.012 < 0.012 (0.000-0.034) ng/mL 07/25/25 Range/Units 04:04 AST 29 (14-36) U/L Troponin I (0.000-0.034) ng/mL Coagulation 07/24/25 Range/Units 14:05 PT 15.2 H (11.1-14.7) Seconds APTT 28.0 (22.3-36.8) Seconds Lipids 07/24/25 Range/Units 14:05 Triglycerides 140 (<150) mg/dL CBC 07/24/25 07/25/25 Range/Units 14:05 04:04 WBC 6.3 5.1 (4.5-10.0) K/mm3 RBC 3.73 L 3.51 L (4.2-5.4) M/mm3 Hgb 12.3 11.5 L (12.0-15.0) g/dL Hct 36.9 L 35.2 L (37.0-47.0) % Plt Count 264 245 (150-375) k/mm3 Lymph # (Auto) 1.31 0.95 (0.9-3.2) K/mm3 [place] # (Auto) 0.5 0.5 (0.1-0.6) K/mm3 Eos # (Auto) 0.2 0.2 (0-0.3) K/mm3 Baso # (Auto) 0.0 0.1 (0.0-0.1) K/mm3 Comprehensive Metabolic Panel 07/24/25 07/25/25 Range/Units 14:05 04:04 Sodium 139 140 (137-145) mmol/L Potassium 4.4 3.8 (3.4-5.0) mmol/L Chloride 108 H 105 (98-107) mmol/L Carbon Dioxide 26 26 (22-30) mmol/L BUN 21 H 22 H (7-17) mg/dL Creatinine 0.68 L 0.80 (0.7-1.0) mg/dL Glucose 104 94 (65-110) mg/dL Calcium 8.9 9.1 (8.4-10.2) mg/dL AST 32 29 (14-36) U/L ALT 15 10 (6-35) U/L Alkaline Phosphatase 67 68 (38-126) U/L Total Protein 7.5 7.0 (6.3-8.2) g/dL Albumin 4.0 3.7 (3.5-5.1) g/dL Intake and Output 11/02/25 11/03/25 11/03/25 23:59 07:59 15:59 Intake Total 80.8 240 240 Output Total 400 200 Balance -319.2 40 240 Intake: IV 30.8 40 dilTIAZem 100 MG/100 ML 100 mg 30.8 40 In 100 ml @ 5 MG/HR 5 mls/hr IV CONT .Q20H [facility] Rx#:[id number] Oral 50 200 240 Output: Urine 400 200 Other: # Unmeasured Voids 3 Patient Weight 07/25/25 23:59 Weight 63.9 kg
[2025-07-25] MEDS: CARBIDOPA/LEVODOPA 25/100 MG TABLET 1 TABLET PO ×3 (09:38→20:24)
[2025-07-25] MEDS: CALCIUM/VITAMIN D 500 MG/5 MCG (200 I.U.) TABLET PO ×2 (09:38→20:19)
[2025-07-25] MEDS: PANTOPRAZOLE 40 MG TABLET PO (09:39)
[2025-07-25] MEDS: APIXABAN 5 MG TABLET PO ×2 (09:40→20:19)
[2025-07-25] MEDS: FUROSEMIDE 20 MG TABLET PO (09:40)
[2025-07-25] MEDS: THERAPEUTIC MULTIVITAMINS/MINERALS TAB (*BKC) 1 TABLET PO (09:40)
[2025-07-25] MEDS: CHOLECALCIFEROL (VITAMIN D3) 25 MCG (1,000 UNITS) TABLET PO (09:40)
[2025-07-25] MEDS: ASPIRIN 81 MG CHEWABLE TABLET PO (09:43)
[2025-07-25] MEDS: DILANTIN 100 MG 1 EACH PO ×3 (09:47→16:59)
[2025-07-25] MEDS: CYANOCOBALAMIN 1,000 MCG TABLET 1000 MCG PO (09:50)
[2025-07-25] MEDS: METOPROLOL TARTRATE 25 MG TABLET PO ×3 (12:51→20:19)
[2025-07-25] MEDS: dilTIAZem 100 MG/100 ML 100 MG/100 ML BAG IV CONT (14:45)
[2025-07-25] MEDS: DOCUSATE SODIUM 100 MG CAPSULE PO (20:18)
[2025-07-26] VITALS (30 sets, daily range): BP systolic 101–146; BP diastolic 53–91; PULSE 77–147; RESP 16–18; TEMP 36.4–36.8; O2SAT 92–98
--- NOTE | 2025-07-26 03:25 | PC.NURSE ---
Patient's heart rate maintaining 130's to 140's while she sleeps. Patient denied chest pain or any other complaints. Dr. Grady paged [phone]. awaiting call back
--- NOTE | 2025-07-26 03:36 | PC.NURSE ---
Orders received from Dr. Grady
[2025-07-26] MEDS: DIGOXIN INJ 250 MCG/ML 2 ML AMP (*BKC) 500 MCG IV PUSH (03:52)
[2025-07-26 04:12] LABS: Hematocrit 36.8 % (37.0-47.0); Hemoglobin 12.5 g/dL (12.0-15.0); Mean Corpuscular HGB Conc 34.0 g/dl (32-36); Mean Corpuscular Hemoglobin 33.2 pg (26-34); Mean Corpuscular Volume 97.9 fl (80-100); Platelet Count Result 276 k/mm3 (150-375); Red Blood Count 3.76 M/mm3 (4.2-5.4); White Blood Count 7.2 K/mm3 (4.5-10.0)
[2025-07-26 04:28] LABS: Alanine Aminotransferase 11 U/L (6-35); Albumin Level 4.2 g/dL (3.5-5.1); Alkaline Phosphatase 77 U/L (38-126); Anion Gap 10 mmol/L (4-12); Aspartate Amino Transferase 38 U/L (14-36); Bilirubin,Total 0.6 mg/dL (0.2-1.3); Blood Urea Nitrogen 23 mg/dL (7-17); Calcium 9.0 mg/dL (8.4-10.2); Carbon Dioxide 24 mmol/L (22-30); Chloride 104 mmol/L (98-107); Estimated CRCL calculation 41 ml/min; Estimated Glomerular Filt Rate > 60; Glucose 140 mg/dL (65-110); Potassium 4.2 mmol/L (3.4-5.0); Sodium 138 mmol/L (137-145); Total Protein 7.7 g/dL (6.3-8.2)
[2025-07-26] MEDS: PHENobarbitaL (*CRX) 30 MG TABLET PO ×3 (06:31→20:54)
[2025-07-26] MEDS: LEVOTHYROXINE SODIUM 75 MCG TABLET BY MOUTH (06:57)
[2025-07-26] MEDS: CARBIDOPA/LEVODOPA 25/100 MG TABLET 1 TABLET PO ×3 (06:59→20:54)
--- NOTE | 2025-07-26 07:41 | P.PNIM_ITS ---
Progress Note: A&P Assessment and Plan (1) Atrial fibrillation with rapid ventricular response: Code(s): I48.91 - Unspecified atrial fibrillation Status: Acute Assessment and Plan: Patient with chronic AFib on 80 mg sotalol Q12 and Eliquis 5 mg q12 ECG shows AFib RVR. No associated symptoms such as chest pain, shortness a breath. Troponin negative. Recurrent afib despite several cardioversion attempts. Patient reports a history of amulet LAAO placement by Dr. Couch at [facility] LAAO leakage thus patient remains on eliquis and is currently holding plavix Primary cardiology: Dr. Marin -10 mg diltiazem push in ED failed to convert patient, started on diltiazem drip 5 milligrams/hour -continue sotalol 80 mg q12 and Eliquis 5 mg q12 - tele monitor reviewed, afib with HR in the upper 80s-100 - echo: systolic function is normal with noted diastolic dysfunction and mild to mod pulmonary htn prior echo 11/29/23: LVEF >70% with with mitral and tricuspid regurgitation -cardiology consult Refer patient to electrophysiology for ablation for atrial flutter Continue metoprolol tartrate 25 mg q.i.d.. and sotalol 80 mg q.12 hours. Patient remained in afib RVR overnight requiring 0.5 mg IV digoxin. Patient remains asymptomatic denying chest pain, palpitations and shortness of breath. Given another 0.25 mg IV digoxin today and plan to obtain a digoxin level tomorrow. Continue metoprolol tartrate 25 mg q.i.d.. Decreased IV Cardizem to 2.5 mg per hour for 2 hours and then discontinue. HR remain stable at this time. Continue to monitor via tele. Remains in IMU. (2) CHF (congestive heart failure): Qualifiers: Heart failure chronicity: chronic Heart failure type: unspecified Qualified Code(s): I50.9 - Heart failure, unspecified Code(s): I50.9 - Heart failure, unspecified Status: Chronic Assessment and Plan: Patient with a history of CHF and complains of recent dyspnea on exertion. Possible that CHF exacerbation related to afib RVR - Recieved 40 mg IV lasix n the ED, remains on her home 20 mg PO lasix - BNP: 2670 - EKG on admission showed Afib RVR HR 131 - Chest XR: CHF - echo: systolic function is normal with noted diastolic dysfunction and mild to mod pulmonary htn prior echo 11/29/23: LVEF >70% with with mitral and tricuspid regurgitation - Monitor vital signs, I&Os, BUN/creatinine, daily weights, neuro status and patient is a fall risk - Monitor serum electrolytes, Keep serum Potassium>4 and serum Magnesium>2 and CBC Appears euvolemic. Denies shortness of breath with clear lung sounds and no edema. (3) Fall: Code(s): W19.XXXA - Unspecified fall, initial encounter Status: Acute Assessment and Plan: Mechanical ground level fall at the [facility] onto the left side resulting in left knee and hip pain Denies dizziness/lightheadedness prior to fall - Head CT: no acute intracranial abnormality - Knee and hip XR: Unremarkable Continues to endorse knee discomfort. No pain with passive or active range of motion. No noted swelling. No bruising or wounds noted. Lidocaine patch ordered. - PT/OT consulted for discharge recommendations Recommending outpatient therapy (4) Parkinsons disease: Qualifiers: Dyskinesia presence: with dyskinesia Fluctuating manifestations: unspecified whether manifestations fluctuate Qualified Code(s): G20.B1 - Parkinson's disease with dyskinesia, without mention of fluctuations Code(s): G20.A1 - Parkinson's disease without dyskinesia, without mention of fluctuations Status: Chronic Assessment and Plan: Continue carbidopa/levodopa (5) Seizure disorder: Code(s): G40.909 - Epilepsy, unspecified, not intractable, without status epilepticus Status: Chronic Assessment and Plan: Continue phenobarbital 30 mg q.8 hours Time Spent With Patient Time with patient: 25 - 35 minutes Subjective Date/time seen: 07/26/25 07:41 Interval history: 84 year old female with past medical history of parkinsons, afib, pe, frequent falls, hypothyroidism, cerebral palsy, seizure disorder presents to the hospital from the [facility] after a mechanical fall onto the left side resulting in left hip and knee pain. Patient is pleasant sitting up in the bed. Overnight patient remained in AFib rvr requiring cardiology to be notified and patient given IV digoxin with improvement to HR. She remained asymptomatic at that time. She has no other complaints denying chest pain, shortness of breath, palpitations, nausea/vomiting and abdominal pain. Review of Systems Review of Systems: All systems reviewed & are unremarkable except as noted in HPI and below Exam Narrative: AF HR 86 RR 18 SpO2 93 BP 120/65 General: female in no acute respiratory distress who is nontoxic appearing, sitting up in bed. HEENT: Normocephalic. Atraumatic. Extraocular movement intact. Sclera clear and anicteric. No facial asymmetry. Chest: Lungs are clear to auscultation bilaterally. No wheezes or crackles. CV: Heart was irregular irregular rate and rhythm. Abd: Abdomen was soft. Nontender. Nondistended. Positive bowel sounds. Ext: No clubbing, cyanosis, or edema. DP pulses bilaterally. Neuro: Patient is alert. Speech is clear. Objective Data Vital Signs Vital Signs: Vital Signs - 24 hr 07/25/25 07:47 07/25/25 08:00 07/25/25 08:00 Temperature 98 F Pulse Rate 101 H 86 101 H Respiratory Rate 16 Blood Pressure 125/82 125/82 Pulse Oximetry 92 Oxygen Delivery 07/25/25 09:39 07/25/25 10:00 07/25/25 10:00 Temperature Pulse Rate 98 96 Respiratory Rate Blood Pressure 139/76 Pulse Oximetry Oxygen Delivery 07/25/25 10:00 07/25/25 11:46 07/25/25 12:00 Temperature 97.7 F Pulse Rate 103 H 94 94 Respiratory Rate 14 Blood Pressure 139/76 140/77 140/77 Pulse Oximetry 92 Oxygen Delivery 07/25/25 12:00 07/25/25 12:51 07/25/25 14:00 Temperature Pulse Rate 98 101 H 86 Respiratory Rate Blood Pressure 121/63 Pulse Oximetry Oxygen Delivery 07/25/25 14:00 07/25/25 14:00 07/25/25 14:45 Temperature Pulse Rate 82 105 H 87 Respiratory Rate Blood Pressure 121/63 121/63 Pulse Oximetry Oxygen Delivery 07/25/25 16:00 07/25/25 16:00 07/25/25 16:00 Temperature 97.6 F Pulse Rate 113 H 97 113 H Respiratory Rate 18 Blood Pressure 136/81 136/81 Pulse Oximetry 93 Oxygen Delivery 07/25/25 16:57 07/25/25 18:00 07/25/25 18:00 Temperature Pulse Rate 110 H 78 88 Respiratory Rate Blood Pressure 110/51 L Pulse Oximetry Oxygen Delivery 07/25/25 18:00 07/25/25 20:00 07/25/25 20:00 Temperature 97.8 F Pulse Rate 92 95 Respiratory Rate 18 Blood Pressure 110/51 L 128/74 Pulse Oximetry 96 Oxygen Delivery Room Air 07/25/25 20:00 07/25/25 20:00 07/25/25 20:17 Temperature Pulse Rate 116 H 91 116 H Respiratory Rate Blood Pressure 128/74 Pulse Oximetry Oxygen Delivery 07/25/25 20:19 07/25/25 22:00 07/25/25 22:00 Temperature 97.9 F Pulse Rate 116 H 104 H 104 H Respiratory Rate 16 Blood Pressure 112/70 112/70 Pulse Oximetry 91 Oxygen Delivery 07/25/25 22:00 07/26/25 00:00 07/26/25 00:00 Temperature 98.2 F Pulse Rate 109 H 118 H Respiratory Rate 18 Blood Pressure 118/80 Pulse Oximetry 93 Oxygen Delivery Room Air 07/26/25 00:00 07/26/25 00:00 07/26/25 02:00 Temperature Pulse Rate 132 H 132 H 129 H Respiratory Rate Blood Pressure 118/80 Pulse Oximetry Oxygen Delivery 07/26/25 02:04 07/26/25 03:52 07/26/25 04:00 Temperature Pulse Rate 129 H 147 H Respiratory Rate Blood Pressure 101/74 Pulse Oximetry Oxygen Delivery Room Air 07/26/25 04:00 07/26/25 04:00 07/26/25 04:04 Temperature 97.7 F Pulse Rate 118 H 135 H 118 H Respiratory Rate 16 Blood Pressure 117/83 117/83 Pulse Oximetry 93 Oxygen Delivery 07/26/25 04:25 07/26/25 06:00 07/26/25 06:19 Temperature Pulse Rate 101 H 91 109 H Respiratory Rate Blood Pressure 127/80 Pulse Oximetry Oxygen Delivery Intake/Output Intake/Output: Intake & Output 07/23/25 07/24/25 07/25/25 07/26/25 23:59 22:59 23:59 23:59 Intake Total 80.8 1221.3 291.6 Output Total 400 525 150 Balance -319.2 696.3 141.6 Meds/Results Medications: Active Medications Generic Name Dose Route Start Last Admin Trade Name Freq PRN Reason Stop Dose Admin Acetaminophen 1,000 mg 07/24/25 16:57 Acetaminophen 500 Mg Tablet PO Q6H PRN Pain 1-3 OR FEVER Apixaban 5 mg 07/24/25 21:00 07/25/25 20:19 Apixaban 5 Mg Tablet PO 5 mg Q12HR MANN Administration Aspirin 81 mg 07/25/25 09:00 07/25/25 09:43 Aspirin 81 Mg Chewable Tablet PO 81 mg DAILY MANN Administration Calcium Carbonate 500 mg 07/24/25 21:00 07/25/25 20:19 Calcium/Vitamin D 500 Mg/5 Mcg (200 I.U.) Tablet PO 500 mg Q12HR MANN Administration Carbidopa/Levodopa 1 tablet 07/25/25 16:00 07/26/25 06:59 Carbidopa/Levodopa 25/100 Mg Tablet PO 1 tablet 0630,1600,2100 MANN Administration Cyanocobalamin 1,000 mcg 07/25/25 09:00 07/25/25 09:50 Cyanocobalamin 1,000 Mcg Tablet PO 1,000 mcg MoWeFr MANN Administration Docusate Sodium 100 mg 07/24/25 21:00 07/25/25 20:18 Docusate Sodium 100 Mg Capsule PO 100 mg QHS MANN Administration Furosemide 20 mg 07/25/25 09:00 07/25/25 09:40 Furosemide 20 Mg Tablet PO 20 mg DAILY MANN Administration Diltiazem HCl 100 mg in 100 mls @ 5 mls/hr 07/24/25 20:20 07/26/25 06:19 Cardizem 100 Mg/100 Ml IV CONT 5 mg/hr .Q20H MANN 5 mls/hr 5 MG/HR Infusion Levothyroxine Sodium 75 mcg 07/25/25 06:30 07/26/25 06:57 Levothyroxine Sodium 75 Mcg Tablet BY MOUTH 75 mcg DAILY@0630 MANN Administration Metoprolol Tartrate 25 mg 07/25/25 13:00 07/25/25 20:19 Metoprolol Tartrate 25 Mg Tablet PO 25 mg QID MANN Administration Multivitamins/Calcium 1 tablet 07/25/25 09:00 07/25/25 09:40 Therapeutic Multivitamins/Minerals Tab (*Bkc) PO 1 tablet DAILY MANN Administration Home Med Dilantin 1 each 07/24/25 19:45 07/25/25 16:59 100mg Capsules PO 08/23/25 19:44 1 each TID MANN Administration Pantoprazole Sodium 40 mg 07/25/25 09:00 07/25/25 09:39 Pantoprazole 40 Mg Tablet PO 40 mg DAILY MANN Administration Perflutren Lipid Microsphere 0 ml 07/24/25 23:26 Perflutren Lipid Microspheres 1.5 Ml Vial Diluted To 10 Ml Total Volume IV PUSH 07/27/25 23:26 ONCE PRN adequate visualization Protocol Phenobarbital 30 mg 07/24/25 22:00 07/26/25 06:31 Phenobarbital (*Crx) 30 Mg Tablet PO 30 mg Q8HR MANN Administration Sotalol HCl 80 mg 07/25/25 09:00 07/25/25 20:17 Sotalol Hcl 40 Mg Tablet PO 80 mg Q12HR MANN Administration Vitamin D 25 mcg 07/25/25 09:00 07/25/25 09:40 Cholecalciferol (Vitamin D3) 25 Mcg (1,000 Units) Tablet PO 25 mcg DAILY MANN Administration Radiology Results: ITS Impressions Head CT 07/24/25 12:48 IMPRESSION: 1. No acute intracranial findings. Chest X-Ray 07/24/25 14:11 Impression: CHF Labs Labs: Laboratory Results - last 24 hr 07/26/25 03:59 WBC 7.2 RBC 3.76 L Hgb 12.5 Hct 36.8 L MCV 97.9 MCH 33.2 MCHC 34.0 RDW 14.6 H Plt Count 276 MPV 9.3 Sodium 138 Potassium 4.2 Chloride 104 Carbon Dioxide 24 Anion Gap 10 BUN 23 H Creatinine 0.76 Estim Creat Clear Calc 41 Estimated GFR > 60 Glucose 140 H Calcium 9.0 Total Bilirubin 0.6 AST 38 H ALT 11 Alkaline Phosphatase 77 Total Protein 7.7 Albumin 4.2 Quality VTE Prophylaxis VTE prophylaxis: mechanical ordered and pharmacologic ordered
[2025-07-26] MEDS: LIDOCAINE 5% PATCH 1 PATCH TRANSDERM (09:09)
[2025-07-26] MEDS: THERAPEUTIC MULTIVITAMINS/MINERALS TAB (*BKC) 1 TABLET PO (09:11)
[2025-07-26] MEDS: CALCIUM/VITAMIN D 500 MG/5 MCG (200 I.U.) TABLET PO ×2 (09:11→20:52)
[2025-07-26] MEDS: APIXABAN 5 MG TABLET PO ×2 (09:12→20:52)
[2025-07-26] MEDS: CHOLECALCIFEROL (VITAMIN D3) 25 MCG (1,000 UNITS) TABLET PO (09:12)
[2025-07-26] MEDS: METOPROLOL TARTRATE 25 MG TABLET PO ×4 (09:12→20:52)
[2025-07-26] MEDS: FUROSEMIDE 20 MG TABLET PO (09:13)
[2025-07-26] MEDS: PANTOPRAZOLE 40 MG TABLET PO (09:13)
[2025-07-26] MEDS: ASPIRIN 81 MG CHEWABLE TABLET PO (09:13)
[2025-07-26] MEDS: DILANTIN 100 MG 1 EACH PO ×3 (09:14→16:35)
[2025-07-26] MEDS: ACETAMINOPHEN 500 MG TABLET 1000 MG PO (09:22)
[2025-07-26] MEDS: dilTIAZem 100 MG/100 ML 100 MG/100 ML BAG IV CONT (12:00)
--- NOTE | 2025-07-26 12:10 | P.PNCA_ITS ---
Progress Note: A&P Assessment and Plan (1) Atrial fibrillation with rapid ventricular response: Code(s): I48.91 - Unspecified atrial fibrillation Status: Acute (2) Parkinsons disease: Qualifiers: Dyskinesia presence: with dyskinesia Fluctuating manifestations: unspecified whether manifestations fluctuate Qualified Code(s): G20.B1 - Parkinson's disease with dyskinesia, without mention of fluctuations Code(s): G20.A1 - Parkinson's disease without dyskinesia, without mention of fluctuations Status: Chronic (3) Pulmonary embolism: Onset Date: 11/2023 Qualifiers: Pulmonary embolism type: unspecified Chronicity: acute Acute cor pulmonale presence: without acute cor pulmonale Qualified Code(s): I26.99 - Other pulmonary embolism without acute cor pulmonale Code(s): I26.99 - Other pulmonary embolism without acute cor pulmonale Status: Acute (4) Atrial flutter with rapid ventricular response: Code(s): I48.92 - Unspecified atrial flutter Status: Chronic (5) Seizure disorder: Code(s): G40.909 - Epilepsy, unspecified, not intractable, without status epilepticus Status: Chronic (6) Hypothyroidism: Qualifiers: Hypothyroidism type: unspecified Qualified Code(s): E03.9 - Hypothyroidism, unspecified Code(s): E03.9 - Hypothyroidism, unspecified Status: Chronic (7) Hypertension: Qualifiers: Hypertension type: essential hypertension Qualified Code(s): I10 - Essential (primary) hypertension Code(s): I10 - Essential (primary) hypertension Status: Chronic Plan Assessment: 1. Patient with known history of atrial flutter /fibrillation presents with fall and was found to have atrial flutter with increased ventricular response at home at 130-140 per minute. Status post cardioversion on 12/29/2024. Patient currently on sotalol and Eliquis and Eliquis. History of PN cardioversion x5 in the past. 2. Negative cardiac enzymes for acute coronary syndrome. 3. Acute on chronic diastolic heart failure, ProBNP was 2670. Previous echocardiogram reviewed from November of 2023 which showed normal left ventricular size and systolic function estimated at 70%. Patient has moderate left ventricular hypertrophy with severely enlarged left atrium and mild to moderate mitral regurgitation and mild tricuspid regurgitation. Patient is on furosemide 20 mg daily at home but 4. Chronic anticoagulation therapy with apixaban 5 mg b.i.d.. Patient is also on aspirin and clopidogrel. This can create high risk score patient is 84 years old for bleeding. 5. History of hypertension, hypothyroidism, pulmonary embolism and Parkinson's disease as well as seizure disorder. Plan #. Currently blood pressure is 112/53 and heart rate is 95 per minute. Patient is currently on Cardizem drip at 5 microgram/kg per minute. Monitor shows atrial fibrillation at this point. Patient was given 0.5 mg of IV digoxin last night to help with persistently elevated heart rate in the range of 150 per minute. Will continue digoxin 0.25 mg IV push today and get it level tomorrow. #. Patient is chronically recurrent atrial flutter despite cardioversion x2. Patient needs ablation for atrial flutter. #. Hemoglobin is stable at 11.5 . Patient is currently on apixaban and not on aspirin and Plavix blood #. At this point patient may be a candidate for ablation. Consider referral to Electrophysiology for ablation for atrial flutter/fibrillation versus AV node ablation and pacemaker placement. Will leave it to her primary assistant strength coach. #. Will start patient on immediate release metoprolol tartrate 25 mg q.i.d.. Oral diltiazem immediate release tablet will interfere with phenobarbital. Will decrease IV Cardizem to 2.5 mg per hour for 2 hours and then discontinue. #. Echocardiogram performed on 06/24/2025 reveals normal biventricular size and systolic function with diastolic left ventricular dysfunction and moderate left atrial enlargement. [id number] pulmonary artery hypertension noted. Subjective Date/time seen: 07/26/25 12:10 Interval history: Patient is at 84-year-old female admitted via emergency room on 07/24/2025 with complaints of left knee and left hip pain patient apparently lost her balance and fell on the left side with complaints of pain in the left hip and left knee. Patient has past medical history significant for atrial fibrillation for which she takes sotalol 80 mg b.i.d. and Eliquis 5 mg daily. No associated abdominal pain, nausea vomiting or diarrhea. No complaints of chest pain, shortness of breath, fever or chills. EKG in the emergency room revealed atrial flutter with rapid ventricular response and the ventricular rate at 131 per minute. Previous EKG reviewed from June of 2025 which also revealed atrial flutter with rapid ventricular response. Past medical history significant for Parkinson's disease, history of pulmonary embolism, hypertension, hypothyroidism, history of cerebral palsy and seizure disorder. 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 Admitting blood pressure was 140/90 and respirations are 18 per minute. Patient was afebrile and 97% O2 saturation on room air. CT scan of the head without contrast was negative for any acute pathology. X- ray of the left hip and pelvis and left knee showed normal acute fracture. Patient was given 5 mg of IV Lopressor and subsequently started on Cardizem bolus and drip. Admitting laboratory data revealed WBC count of 6.3, hemoglobin is 12.3, platelets are 264,000. Sodium 139, potassium is 4.4, BUN is 21, creatinine is 0.68. Exam Narrative: Patient was examined at the bedside. Patient is awake and alert appears to be tired. Patient had increased pain in the right knee last night with increase in heart rate done persistently in the range of 150 per minute with atrial fibrillation. Head and neck examination is unremarkable. Sclerae is nonicteric Neck is supple. There is no JVD or carotid bruit. Thyroid is not enlarged Lungs are clear auscultation percussion Heart sounds reveal normal S1-S2. Abdomen is soft nontender. There is no hepatosplenomegaly. Bowel sounds present Extremities was no pedal edema. Neurological examination is intact. Objective Data Vital Signs Vital Signs: Vital Signs - 24 hr 07/25/25 12:51 07/25/25 14:00 07/25/25 14:00 Temperature Pulse Rate 101 H 86 82 Respiratory Rate Blood Pressure 121/63 121/63 Pulse Oximetry Oxygen Delivery 07/25/25 14:00 07/25/25 14:45 07/25/25 16:00 Temperature 36.4 C Pulse Rate 105 H 87 113 H Respiratory Rate 18 Blood Pressure 121/63 136/81 Pulse Oximetry 93 Oxygen Delivery 07/25/25 16:00 07/25/25 16:00 07/25/25 16:57 Temperature Pulse Rate 97 113 H 110 H Respiratory Rate Blood Pressure 136/81 Pulse Oximetry Oxygen Delivery 07/25/25 18:00 07/25/25 18:00 07/25/25 18:00 Temperature Pulse Rate 78 88 92 Respiratory Rate Blood Pressure 110/51 L 110/51 L Pulse Oximetry Oxygen Delivery 07/25/25 20:00 07/25/25 20:00 07/25/25 20:00 Temperature 36.6 C Pulse Rate 95 116 H Respiratory Rate 18 Blood Pressure 128/74 128/74 Pulse Oximetry 96 Oxygen Delivery Room Air 07/25/25 20:00 07/25/25 20:17 07/25/25 20:19 Temperature Pulse Rate 91 116 H 116 H Respiratory Rate Blood Pressure Pulse Oximetry Oxygen Delivery 07/25/25 22:00 07/25/25 22:00 07/25/25 22:00 Temperature 36.6 C Pulse Rate 104 H 104 H 109 H Respiratory Rate 16 Blood Pressure 112/70 112/70 Pulse Oximetry 91 Oxygen Delivery 07/26/25 00:00 07/26/25 00:00 07/26/25 00:00 Temperature 36.8 C Pulse Rate 118 H 132 H Respiratory Rate 18 Blood Pressure 118/80 Pulse Oximetry 93 Oxygen Delivery Room Air 07/26/25 00:00 07/26/25 02:00 07/26/25 02:04 Temperature Pulse Rate 132 H 129 H 129 H Respiratory Rate Blood Pressure 118/80 101/74 Pulse Oximetry Oxygen Delivery 07/26/25 03:52 07/26/25 04:00 07/26/25 04:00 Temperature 36.5 C Pulse Rate 147 H 118 H Respiratory Rate 16 Blood Pressure 117/83 Pulse Oximetry 93 Oxygen Delivery Room Air 07/26/25 04:00 07/26/25 04:04 07/26/25 04:25 Temperature Pulse Rate 135 H 118 H 101 H Respiratory Rate Blood Pressure 117/83 Pulse Oximetry Oxygen Delivery 07/26/25 06:00 07/26/25 06:19 07/26/25 07:46 Temperature 36.4 C L Pulse Rate 91 109 H 111 H Respiratory Rate 16 Blood Pressure 127/80 131/91 H Pulse Oximetry 92 Oxygen Delivery 07/26/25 08:00 07/26/25 08:00 07/26/25 09:10 Temperature Pulse Rate 111 H 84 85 Respiratory Rate Blood Pressure 131/91 H Pulse Oximetry Oxygen Delivery 07/26/25 09:12 07/26/25 09:50 07/26/25 10:00 Temperature Pulse Rate 85 80 Respiratory Rate Blood Pressure 112/53 L Pulse Oximetry Oxygen Delivery Room Air 07/26/25 10:00 07/26/25 10:00 07/26/25 11:27 Temperature Pulse Rate 95 95 Respiratory Rate Blood Pressure 112/53 L Pulse Oximetry Oxygen Delivery Room Air Intake/Output Intake/Output: Intake & Output 07/23/25 07/24/25 07/25/25 07/26/25 23:59 22:59 23:59 23:59 Intake Total 80.8 1221.3 430.0 Output Total 400 525 150 Balance -319.2 696.3 280.0 Meds/Results Medications: Active Medications Generic Name Dose Route Start Last Admin Trade Name Freq PRN Reason Stop Dose Admin Acetaminophen 1,000 mg 07/24/25 16:57 07/26/25 09:22 Acetaminophen 500 Mg Tablet PO 1,000 mg Q6H PRN Administration Pain 1-3 OR FEVER Apixaban 5 mg 07/24/25 21:00 07/26/25 09:12 Apixaban 5 Mg Tablet PO 5 mg Q12HR MANN Administration Aspirin 81 mg 07/25/25 09:00 07/26/25 09:13 Aspirin 81 Mg Chewable Tablet PO 81 mg DAILY MANN Administration Calcium Carbonate 500 mg 07/24/25 21:00 07/26/25 09:11 Calcium/Vitamin D 500 Mg/5 Mcg (200 I.U.) Tablet PO 500 mg Q12HR MANN Administration Carbidopa/Levodopa 1 tablet 07/25/25 16:00 07/26/25 06:59 Carbidopa/Levodopa 25/100 Mg Tablet PO 1 tablet 0630,1600,2100 MANN Administration Cyanocobalamin 1,000 mcg 07/25/25 09:00 07/25/25 09:50 Cyanocobalamin 1,000 Mcg Tablet PO 1,000 mcg MoWeFr MANN Administration Docusate Sodium 100 mg 07/24/25 21:00 07/25/25 20:18 Docusate Sodium 100 Mg Capsule PO 100 mg QHS MANN Administration Furosemide 20 mg 07/25/25 09:00 07/26/25 09:13 Furosemide 20 Mg Tablet PO 20 mg DAILY MANN Administration Diltiazem HCl 100 mg in 100 mls @ 5 mls/hr 07/24/25 20:20 07/26/25 10:00 Cardizem 100 Mg/100 Ml IV CONT 5 mg/hr .Q20H MANN 5 mls/hr 5 MG/HR Infusion Levothyroxine Sodium 75 mcg 07/25/25 06:30 07/26/25 06:57 Levothyroxine Sodium 75 Mcg Tablet BY MOUTH 75 mcg DAILY@0630 MANN Administration Lidocaine 1 patch 07/26/25 09:00 07/26/25 09:09 Lidocaine 5% Patch TRANSDERM 1 patch DAILY MANN Administration Metoprolol Tartrate 25 mg 07/25/25 13:00 07/26/25 09:12 Metoprolol Tartrate 25 Mg Tablet PO 25 mg QID MANN Administration Multivitamins/Calcium 1 tablet 07/25/25 09:00 07/26/25 09:11 Therapeutic Multivitamins/Minerals Tab (*Bkc) PO 1 tablet DAILY MANN Administration Home Med Dilantin 1 each 07/24/25 19:45 07/26/25 09:14 100mg Capsules PO 08/23/25 19:44 1 each TID MANN Administration Pantoprazole Sodium 40 mg 07/25/25 09:00 07/26/25 09:13 Pantoprazole 40 Mg Tablet PO 40 mg DAILY MANN Administration Perflutren Lipid Microsphere 0 ml 07/24/25 23:26 Perflutren Lipid Microspheres 1.5 Ml Vial Diluted To 10 Ml Total Volume IV PUSH 07/27/25 23:26 ONCE PRN adequate visualization Protocol Phenobarbital 30 mg 07/24/25 22:00 07/26/25 06:31 Phenobarbital (*Crx) 30 Mg Tablet PO 30 mg Q8HR MANN Administration Sotalol HCl 80 mg 07/25/25 09:00 07/26/25 09:10 Sotalol Hcl 40 Mg Tablet PO 80 mg Q12HR MANN Administration Vitamin D 25 mcg 07/25/25 09:00 07/26/25 09:12 Cholecalciferol (Vitamin D3) 25 Mcg (1,000 Units) Tablet PO 25 mcg DAILY MANN Administration Radiology Results: ITS Impressions Head CT 07/24/25 12:48 IMPRESSION: 1. No acute intracranial findings. Chest X-Ray 07/24/25 14:11 Impression: CHF Labs Labs: Laboratory Results - last 24 hr 07/26/25 03:59 WBC 7.2 RBC 3.76 L Hgb 12.5 Hct 36.8 L MCV 97.9 MCH 33.2 MCHC 34.0 RDW 14.6 H Plt Count 276 MPV 9.3 Sodium 138 Potassium 4.2 Chloride 104 Carbon Dioxide 24 Anion Gap 10 BUN 23 H Creatinine 0.76 Estim Creat Clear Calc 41 Estimated GFR > 60 Glucose 140 H Calcium 9.0 Total Bilirubin 0.6 AST 38 H ALT 11 Alkaline Phosphatase 77 Total Protein 7.7 Albumin 4.2
[2025-07-26] MEDS: DIGOXIN INJ 250 MCG/ML 2 ML AMP (*BKC) IV PUSH (12:37)
[2025-07-26 12:57] LABS: Triglycerides 96 mg/dL (<150)
--- NOTE | 2025-07-26 16:56 | PC.NURSE ---
On 07/26/25, the student, [Ramos Hall ], provided care and completed [facility] documentation on this patient. I have reviewed the student's documentation and agree with the findings.
[2025-07-26] MEDS: DOCUSATE SODIUM 100 MG CAPSULE PO (20:53)
[2025-07-27] VITALS (20 sets, daily range): BP systolic 111–136; BP diastolic 66–75; PULSE 83–118; RESP 15–20; TEMP 36.3–36.9; O2SAT 94–99
[2025-07-27 04:45] LABS: Hematocrit 36.8 % (37.0-47.0); Hemoglobin 12.4 g/dL (12.0-15.0); Mean Corpuscular HGB Conc 33.7 g/dl (32-36); Mean Corpuscular Hemoglobin 33.2 pg (26-34); Mean Corpuscular Volume 98.4 fl (80-100); Platelet Count Result 270 k/mm3 (150-375); Red Blood Count 3.74 M/mm3 (4.2-5.4); White Blood Count 6.7 K/mm3 (4.5-10.0)
[2025-07-27 05:05] LABS: Alanine Aminotransferase 9 U/L (6-35); Albumin Level 3.8 g/dL (3.5-5.1); Alkaline Phosphatase 76 U/L (38-126); Anion Gap 7 mmol/L (4-12); Aspartate Amino Transferase 35 U/L (14-36); Bilirubin,Total 0.5 mg/dL (0.2-1.3); Blood Urea Nitrogen 21 mg/dL (7-17); Calcium 8.7 mg/dL (8.4-10.2); Carbon Dioxide 23 mmol/L (22-30); Chloride 105 mmol/L (98-107); Estimated CRCL calculation 45 ml/min; Estimated Glomerular Filt Rate > 60; Glucose 104 mg/dL (65-110); Potassium 4.3 mmol/L (3.4-5.0); Sodium 135 mmol/L (137-145); Total Protein 7.3 g/dL (6.3-8.2)
[2025-07-27 05:09] LABS: Digoxin 0.7 ng/mL (0.8-2.0)
[2025-07-27] MEDS: LEVOTHYROXINE SODIUM 75 MCG TABLET BY MOUTH (05:30)
[2025-07-27] MEDS: PHENobarbitaL (*CRX) 30 MG TABLET PO ×3 (05:30→21:11)
[2025-07-27] MEDS: CARBIDOPA/LEVODOPA 25/100 MG TABLET 1 TABLET PO ×3 (05:30→21:12)
[2025-07-27] MEDS: DILANTIN 100 MG 1 EACH PO ×3 (08:47→16:48)
[2025-07-27] MEDS: LIDOCAINE 5% PATCH 1 PATCH TRANSDERM (08:47)
[2025-07-27] MEDS: PANTOPRAZOLE 40 MG TABLET PO (08:48)
[2025-07-27] MEDS: FUROSEMIDE 20 MG TABLET PO (08:48)
[2025-07-27] MEDS: CHOLECALCIFEROL (VITAMIN D3) 25 MCG (1,000 UNITS) TABLET PO (08:48)
[2025-07-27] MEDS: METOPROLOL TARTRATE 25 MG TABLET PO ×4 (08:48→21:11)
[2025-07-27] MEDS: CALCIUM/VITAMIN D 500 MG/5 MCG (200 I.U.) TABLET PO ×2 (08:48→21:11)
[2025-07-27] MEDS: ASPIRIN 81 MG CHEWABLE TABLET PO (08:49)
[2025-07-27] MEDS: THERAPEUTIC MULTIVITAMINS/MINERALS TAB (*BKC) 1 TABLET PO (08:49)
[2025-07-27] MEDS: APIXABAN 5 MG TABLET PO ×2 (08:49→21:11)
[2025-07-27] MEDS: CYANOCOBALAMIN 1,000 MCG TABLET 1000 MCG PO (08:52)
--- NOTE | 2025-07-27 13:58 | P.PNCA_ITS ---
Progress Note: A&P Assessment and Plan (1) Atrial fibrillation with rapid ventricular response: Code(s): I48.91 - Unspecified atrial fibrillation Status: Acute Assessment and Plan: Heart rate reasonably controlled with metoprolol and sotalol. On anticoagulation. I did talk to her but the overall plan for her rate/rhythm control. Electrophysiology recommendations also reviewed from [facility]. Plan is to rate control her and she will be admitted for dofetilide loading after proper amount of time off of sotalol. At that time it is recommended the patient have a AYO guided cardioversion while on dofetilide. This will also be to evaluate the amulet device. She will remain on anticoagulation. If she fails dofetilide therapy, consider at that time ablation which may simply be included AV peyton ablation and pacemaker implantation. (2) Parkinsons disease: Qualifiers: Dyskinesia presence: with dyskinesia Fluctuating manifestations: unspecified whether manifestations fluctuate Qualified Code(s): G20.B1 - Parkinson's disease with dyskinesia, without mention of fluctuations Code(s): G20.A1 - Parkinson's disease without dyskinesia, without mention of fluctuations Status: Chronic (3) Pulmonary embolism: Onset Date: 11/2023 Qualifiers: Pulmonary embolism type: unspecified Chronicity: acute Acute cor pulmonale presence: without acute cor pulmonale Qualified Code(s): I26.99 - Other pulmonary embolism without acute cor pulmonale Code(s): I26.99 - Other pulmonary embolism without acute cor pulmonale Status: Acute Assessment and Plan: On anticoagulation (4) Atrial flutter with rapid ventricular response: Code(s): I48.92 - Unspecified atrial flutter Status: Chronic Assessment and Plan: As detailed above (5) Seizure disorder: Code(s): G40.909 - Epilepsy, unspecified, not intractable, without status epilepticus Status: Chronic (6) Hypothyroidism: Qualifiers: Hypothyroidism type: unspecified Qualified Code(s): E03.9 - Hypothyroidism, unspecified Code(s): E03.9 - Hypothyroidism, unspecified Status: Chronic (7) Hypertension: Qualifiers: Hypertension type: essential hypertension Qualified Code(s): I10 - Essential (primary) hypertension Code(s): I10 - Essential (primary) hypertension Status: Chronic Assessment and Plan: At goal (8) CHF (congestive heart failure): Qualifiers: Heart failure type: unspecified Heart failure chronicity: chronic Qualified Code(s): I50.9 - Heart failure, unspecified Code(s): I50.9 - Heart failure, unspecified Status: Chronic Assessment and Plan: Acute on chronic diastolic heart failure. Still some volume overload and will give 20 mg IV furosemide today. Subjective Date/time seen: 07/27/25 13:58 Interval history: Patient is at 84-year-old female admitted via emergency room on 07/24/2025 with complaints of left knee and left hip pain patient apparently lost her balance and fell on the left side with complaints of pain in the left hip and left knee. Patient has past medical history significant for atrial fibrillation for which she takes sotalol 80 mg b.i.d. and Eliquis 5 mg daily. No associated abdominal pain, nausea vomiting or diarrhea. No complaints of chest pain, shortness of breath, fever or chills. EKG in the emergency room revealed atrial flutter with rapid ventricular response and the ventricular rate at 131 per minute. Previous EKG reviewed from June of 2025 which also revealed atrial flutter with rapid ventricular response. Past medical history significant for Parkinson's disease, history of pulmonary embolism, hypertension, hypothyroidism, history of cerebral palsy and seizure disorder. 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 Admitting blood pressure was 140/90 and respirations are 18 per minute. Patient was afebrile and 97% O2 saturation on room air. CT scan of the head without contrast was negative for any acute pathology. X- ray of the left hip and pelvis and left knee showed normal acute fracture. Patient was given 5 mg of IV Lopressor and subsequently started on Cardizem bolus and drip. Admitting laboratory data revealed WBC count of 6.3, hemoglobin is 12.3, platelets are 264,000. Sodium 139, potassium is 4.4, BUN is 21, creatinine is 0.68. Date of service 03/26/2025: Overall feels weak but has no chest pain, shortness of breath at rest. Does have some dyspnea with activity. Heart rate in the 90s to low 100s. Review of Systems Constitutional: Constitutional: Denies difficulty sleeping Eyes: Eyes: Denies blurry vision ENT: Reports Normal hearing present Cardiovascular: Cardiovascular: Denies chest pain and Denies palpitations Respiratory: Respiratory: Reports dyspnea on exertion Exam Narrative: Appears stated age Const: General: comfortable and no acute distress HENMT: Face/Nose/Sinus: Normal nares present Eyes: General: appearance normal, both eyes and all related structures Sclera: sclerae normal Neck: Neck: supple and no JVD Resp: Effort & Inspection: normal respiratory effort Auscultation: clear to auscultation bilaterally Cardio: Rate: regular rate Rhythm: abnormal rhythm irregularly irregular GI: Inspection: non-distended GI Palp: Yes Soft to palpation Skin: General skin exam: normal color and no rashes or lesions noted Neuro: General: No gait normal Speech: normal speech Extrem: General: edema Other: Mild pedal edema Psych: Mental Status: mental status grossly normal Objective Data Vital Signs Vital Signs: Vital Signs - 24 hr 07/26/25 14:00 07/26/25 14:00 07/26/25 14:07 Temperature Pulse Rate 79 82 80 Respiratory Rate Blood Pressure 109/56 L 109/56 L Pulse Oximetry Oxygen Delivery 07/26/25 15:05 07/26/25 16:00 07/26/25 16:00 Temperature 36.6 C Pulse Rate 89 77 95 Respiratory Rate 16 Blood Pressure 131/70 131/73 Pulse Oximetry 98 Oxygen Delivery 07/26/25 16:34 07/26/25 18:00 07/26/25 18:11 Temperature 36.6 C Pulse Rate 89 103 H 110 H Respiratory Rate 16 Blood Pressure 131/73 Pulse Oximetry 98 Oxygen Delivery 07/26/25 19:59 07/26/25 20:00 07/26/25 20:52 Temperature 36.6 C Pulse Rate 93 94 95 Respiratory Rate 16 Blood Pressure 146/84 H Pulse Oximetry 95 Oxygen Delivery 07/26/25 20:52 07/26/25 22:00 07/26/25 23:57 Temperature 36.6 C Pulse Rate 93 93 98 Respiratory Rate 16 Blood Pressure 130/67 Pulse Oximetry 94 Oxygen Delivery 07/27/25 00:00 07/27/25 02:00 07/27/25 04:00 Temperature 36.6 C Pulse Rate 83 89 88 Respiratory Rate 16 Blood Pressure 134/66 Pulse Oximetry 94 Oxygen Delivery 07/27/25 04:00 07/27/25 06:00 07/27/25 08:00 Temperature 36.8 C Pulse Rate 108 H 90 118 H Respiratory Rate 20 Blood Pressure 136/67 Pulse Oximetry 97 Oxygen Delivery 07/27/25 08:00 07/27/25 08:00 07/27/25 08:48 Temperature Pulse Rate 97 93 Respiratory Rate Blood Pressure Pulse Oximetry Oxygen Delivery Room Air 07/27/25 08:49 07/27/25 10:00 07/27/25 12:00 Temperature 36.3 C L Pulse Rate 93 104 H 88 Respiratory Rate 17 Blood Pressure 122/67 Pulse Oximetry 96 Oxygen Delivery 07/27/25 12:00 Temperature Pulse Rate Respiratory Rate Blood Pressure Pulse Oximetry Oxygen Delivery Room Air Intake/Output Intake/Output: Intake & Output 07/24/25 07/25/25 07/26/25 07/27/25 22:59 23:59 23:59 23:59 Intake Total 80.8 1221.3 1162.8 510 Output Total 356 578 3929 500 Balance -319.2 696.3 112.8 10 Meds/Results Medications: Active Medications Generic Name Dose Route Start Last Admin Trade Name Freq PRN Reason Stop Dose Admin Acetaminophen 1,000 mg 07/24/25 16:57 07/26/25 09:22 Acetaminophen 500 Mg Tablet PO 1,000 mg Q6H PRN Administration Pain 1-3 OR FEVER Apixaban 5 mg 07/24/25 21:00 07/27/25 08:49 Apixaban 5 Mg Tablet PO 5 mg Q12HR MANN Administration Aspirin 81 mg 07/25/25 09:00 07/27/25 08:49 Aspirin 81 Mg Chewable Tablet PO 81 mg DAILY MANN Administration Calcium Carbonate 500 mg 07/24/25 21:00 07/27/25 08:48 Calcium/Vitamin D 500 Mg/5 Mcg (200 I.U.) Tablet PO 500 mg Q12HR MANN Administration Carbidopa/Levodopa 1 tablet 07/25/25 16:00 07/27/25 05:30 Carbidopa/Levodopa 25/100 Mg Tablet PO 1 tablet 0630,1600,2100 MANN Administration Cyanocobalamin 1,000 mcg 07/25/25 09:00 07/27/25 08:52 Cyanocobalamin 1,000 Mcg Tablet PO 1,000 mcg MoWeFr MANN Administration Docusate Sodium 100 mg 07/24/25 21:00 07/26/25 20:53 Docusate Sodium 100 Mg Capsule PO 100 mg QHS MANN Administration Furosemide 20 mg 07/25/25 09:00 07/27/25 08:48 Furosemide 20 Mg Tablet PO 20 mg DAILY MANN Administration Levothyroxine Sodium 75 mcg 07/25/25 06:30 07/27/25 05:30 Levothyroxine Sodium 75 Mcg Tablet BY MOUTH 75 mcg DAILY@0630 MANN Administration Lidocaine 1 patch 07/26/25 09:00 07/27/25 08:47 Lidocaine 5% Patch TRANSDERM 1 patch DAILY MANN Administration Metoprolol Tartrate 25 mg 07/25/25 13:00 07/27/25 08:48 Metoprolol Tartrate 25 Mg Tablet PO 25 mg QID MANN Administration Multivitamins/Calcium 1 tablet 07/25/25 09:00 07/27/25 08:49 Therapeutic Multivitamins/Minerals Tab (*Bkc) PO 1 tablet DAILY MANN Administration Home Med Dilantin 1 each 07/24/25 19:45 07/27/25 08:47 100mg Capsules PO 08/23/25 19:44 1 each TID MANN Administration Pantoprazole Sodium 40 mg 07/25/25 09:00 07/27/25 08:48 Pantoprazole 40 Mg Tablet PO 40 mg DAILY MANN Administration Perflutren Lipid Microsphere 0 ml 07/24/25 23:26 Perflutren Lipid Microspheres 1.5 Ml Vial Diluted To 10 Ml Total Volume IV PUSH 07/27/25 23:26 ONCE PRN adequate visualization Protocol Phenobarbital 30 mg 07/24/25 22:00 07/27/25 05:30 Phenobarbital (*Crx) 30 Mg Tablet PO 30 mg Q8HR MANN Administration Sotalol HCl 80 mg 07/25/25 09:00 07/27/25 08:49 Sotalol Hcl 40 Mg Tablet PO 80 mg Q12HR MANN Administration Vitamin D 25 mcg 07/25/25 09:00 07/27/25 08:48 Cholecalciferol (Vitamin D3) 25 Mcg (1,000 Units) Tablet PO 25 mcg DAILY MANN Administration Radiology Results: ITS Impressions Head CT 07/24/25 12:48 IMPRESSION: 1. No acute intracranial findings. Chest X-Ray 07/24/25 14:11 Impression: CHF Labs Labs: Laboratory Results - last 24 hr 07/27/25 04:12 WBC 6.7 RBC 3.74 L Hgb 12.4 Hct 36.8 L MCV 98.4 MCH 33.2 MCHC 33.7 RDW 14.4 Plt Count 270 MPV 9.5 Sodium 135 L Potassium 4.3 Chloride 105 Carbon Dioxide 23 Anion Gap 7 BUN 21 H Creatinine 0.70 Estim Creat Clear Calc 45 Estimated GFR > 60 Glucose 104 Calcium 8.7 Total Bilirubin 0.5 AST 35 ALT 9 Alkaline Phosphatase 76 Total Protein 7.3 Albumin 3.8 Digoxin 0.7 L
[2025-07-27] MEDS: FUROSEMIDE INJ 40 MG/4 ML VIAL 20 MG IV PUSH (15:47)
--- NOTE | 2025-07-27 16:38 | P.PNIM_ITS ---
Progress Note: A&P Assessment and Plan (1) Atrial fibrillation with rapid ventricular response: Code(s): I48.91 - Unspecified atrial fibrillation Status: Acute Assessment and Plan: Patient with chronic AFib on 80 mg sotalol Q12 and Eliquis 5 mg q12 ECG shows AFib RVR. No associated symptoms such as chest pain, shortness a breath. Troponin negative. Recurrent afib despite several cardioversion attempts. Patient reports a history of amulet LAAO placement by Dr. Couch at [facility] LAAO leakage thus patient remains on eliquis and is currently holding plavix Primary cardiology: Dr. Marin -10 mg diltiazem push in ED failed to convert patient, started on diltiazem drip 5 milligrams/hour -continue sotalol 80 mg q12 and Eliquis 5 mg q12 - tele monitor reviewed, afib with HR in the upper 80s-100 - echo: systolic function is normal with noted diastolic dysfunction and mild to mod pulmonary htn prior echo 11/29/23: LVEF >70% with with mitral and tricuspid regurgitation -cardiology consult Refer patient to electrophysiology for ablation for atrial flutter Continue metoprolol tartrate 25 mg q.i.d.. and sotalol 80 mg q.12 hours. Patient remained in afib RVR overnight requiring 0.5 mg IV digoxin. Patient remains asymptomatic denying chest pain, palpitations and shortness of breath. Given another 0.25 mg IV digoxin today and plan to obtain a digoxin level tomorrow. Continue metoprolol tartrate 25 mg q.i.d.. Decreased IV Cardizem to 2.5 mg per hour for 2 hours and then discontinue. HR remain stable at this time. Continue to monitor via tele. Remains in IMU. (2) CHF (congestive heart failure): Qualifiers: Heart failure type: unspecified Heart failure chronicity: chronic Qualified Code(s): I50.9 - Heart failure, unspecified Code(s): I50.9 - Heart failure, unspecified Status: Chronic Assessment and Plan: Patient with a history of CHF and complains of recent dyspnea on exertion. Possible that CHF exacerbation related to afib RVR - Recieved 40 mg IV lasix n the ED, remains on her home 20 mg PO lasix - BNP: 2670 - EKG on admission showed Afib RVR HR 131 - Chest XR: CHF - echo: systolic function is normal with noted diastolic dysfunction and mild to mod pulmonary htn prior echo 11/29/23: LVEF >70% with with mitral and tricuspid regurgitation - Monitor vital signs, I&Os, BUN/creatinine, daily weights, neuro status and patient is a fall risk - Monitor serum electrolytes, Keep serum Potassium>4 and serum Magnesium>2 and CBC Appears euvolemic. Denies shortness of breath with clear lung sounds and no edema. (3) Fall: Code(s): W19.XXXA - Unspecified fall, initial encounter Status: Acute Assessment and Plan: Mechanical ground level fall at the [facility] onto the left side resulting in left knee and hip pain Denies dizziness/lightheadedness prior to fall - Head CT: no acute intracranial abnormality - Knee and hip XR: Unremarkable Continues to endorse knee discomfort. No pain with passive or active range of motion. No noted swelling. No bruising or wounds noted. Lidocaine patch ordered. - PT/OT consulted for discharge recommendations Recommending outpatient therapy (4) Parkinsons disease: Qualifiers: Dyskinesia presence: with dyskinesia Fluctuating manifestations: unspecified whether manifestations fluctuate Qualified Code(s): G20.B1 - Parkinson's disease with dyskinesia, without mention of fluctuations Code(s): G20.A1 - Parkinson's disease without dyskinesia, without mention of fluctuations Status: Chronic Assessment and Plan: Continue carbidopa/levodopa (5) Seizure disorder: Code(s): G40.909 - Epilepsy, unspecified, not intractable, without status epilepticus Status: Chronic Assessment and Plan: Continue phenobarbital 30 mg q.8 hours Plan patient with persistent A. fib and has had previous cardio version, her HR is reasonbly controlled with metoprolol and sotalol. seen by the court advocate and recommending once patient weaned of sotalol, patient can be loaded with dofetillde and have AYO cardioversion and patient is agreeable with the plan as patient is not keen going to [facility], in the event cardioversion fails in that case will need abalation procedure, patient remain clinically stable and has no complaints, will monitor have PT/OT evaluate the patient. Subjective Date/time seen: 07/27/25 16:38 Interval history: 84 year old female with past medical history of parkinsons, afib, pe, frequent falls, hypothyroidism, cerebral palsy, seizure disorder presents to the hospital from the [facility] after a mechanical fall onto the left side resulting in le ft hip and knee pain. Patient is pleasant sitting up in the bed. Overnight patient remained in AFib rvr requiring cardiology to be notified and patient given IV digoxin with improvement to HR. She remained asymptomatic at that time. She has no other complaints denying chest pain, shortness of breath, palpitations, nausea/vomiting and abdominal pain. patient with persistent A. fib and has had previous cardio version, her HR is reasonbly controlled with metoprolol and sotalol. seen by the court advocate and recommending once patient weaned of sotalol, patient can be loaded with dofetillde and have AYO cardioversion and patient is agreeable with the plan as patient is not keen going to [facility], in the event cardioversion fails in that case will need abalation procedure, patient remain clinically stable and has no complaints, will monitor have PT/OT evaluate the patient. Review of Systems Review of Systems: All systems reviewed & are unremarkable except as noted in HPI and below Exam Narrative: Patient is comfortable, NAD HEENT: eyes are clear and none icteric LUNGS:CTA HEART: RR S1S2 ABD: BS+, Soft and nontender Lower extremities: no edema SKIN: nonjaundiced Neuro: grossly intact. Objective Data Vital Signs Vital Signs: Vital Signs - 24 hr 07/26/25 18:00 07/26/25 18:11 07/26/25 19:59 Temperature 36.6 C 36.6 C Pulse Rate 103 H 110 H 93 Respiratory Rate 16 16 Blood Pressure 131/73 146/84 H Pulse Oximetry 98 95 Oxygen Delivery 07/26/25 20:00 07/26/25 20:52 07/26/25 20:52 Temperature Pulse Rate 94 95 93 Respiratory Rate Blood Pressure Pulse Oximetry Oxygen Delivery 07/26/25 22:00 07/26/25 23:57 07/27/25 00:00 Temperature 36.6 C Pulse Rate 93 98 83 Respiratory Rate 16 Blood Pressure 130/67 Pulse Oximetry 94 Oxygen Delivery 07/27/25 02:00 07/27/25 04:00 07/27/25 04:00 Temperature 36.6 C Pulse Rate 89 88 108 H Respiratory Rate 16 Blood Pressure 134/66 Pulse Oximetry 94 Oxygen Delivery 07/27/25 06:00 07/27/25 08:00 07/27/25 08:00 Temperature 36.8 C Pulse Rate 90 118 H 97 Respiratory Rate 20 Blood Pressure 136/67 Pulse Oximetry 97 Oxygen Delivery 07/27/25 08:00 07/27/25 08:48 07/27/25 08:49 Temperature Pulse Rate 93 93 Respiratory Rate Blood Pressure Pulse Oximetry Oxygen Delivery Room Air 07/27/25 10:00 07/27/25 12:00 07/27/25 12:00 Temperature 36.3 C L Pulse Rate 104 H 88 Respiratory Rate 17 Blood Pressure 122/67 Pulse Oximetry 96 Oxygen Delivery Room Air 07/27/25 12:00 07/27/25 13:00 07/27/25 14:00 Temperature Pulse Rate 96 101 H 96 Respiratory Rate Blood Pressure Pulse Oximetry Oxygen Delivery 07/27/25 16:00 Temperature 36.3 C L Pulse Rate 86 Respiratory Rate 18 Blood Pressure 125/66 Pulse Oximetry 99 Oxygen Delivery Intake/Output Intake/Output: Intake & Output 07/24/25 07/25/25 07/26/25 07/27/25 22:59 23:59 23:59 23:59 Intake Total 80.8 1221.3 1162.8 510 Output Total 576 833 9696 500 Balance -319.2 696.3 112.8 10 Meds/Results Medications: Active Medications Generic Name Dose Route Start Last Admin Trade Name Anayeli PRN Reason Stop Dose Admin Acetaminophen 1,000 mg 07/24/25 16:57 07/26/25 09:22 Acetaminophen 500 Mg Tablet PO 1,000 mg Q6H PRN Administration Pain 1-3 OR FEVER Apixaban 5 mg 07/24/25 21:00 07/27/25 08:49 Apixaban 5 Mg Tablet PO 5 mg Q12HR MANN Administration Aspirin 81 mg 07/25/25 09:00 07/27/25 08:49 Aspirin 81 Mg Chewable Tablet PO 81 mg DAILY MANN Administration Calcium Carbonate 500 mg 07/24/25 21:00 07/27/25 08:48 Calcium/Vitamin D 500 Mg/5 Mcg (200 I.U.) Tablet PO 500 mg Q12HR MANN Administration Carbidopa/Levodopa 1 tablet 07/25/25 16:00 07/27/25 05:30 Carbidopa/Levodopa 25/100 Mg Tablet PO 1 tablet 0630,1600,2100 MANN Administration Cyanocobalamin 1,000 mcg 07/25/25 09:00 07/27/25 08:52 Cyanocobalamin 1,000 Mcg Tablet PO 1,000 mcg MoWeFr MANN Administration Docusate Sodium 100 mg 07/24/25 21:00 07/26/25 20:53 Docusate Sodium 100 Mg Capsule PO 100 mg QHS MANN Administration Furosemide 20 mg 07/25/25 09:00 07/27/25 08:48 Furosemide 20 Mg Tablet PO 20 mg DAILY MANN Administration Levothyroxine Sodium 75 mcg 07/25/25 06:30 07/27/25 05:30 Levothyroxine Sodium 75 Mcg Tablet BY MOUTH 75 mcg DAILY@0630 MANN Administration Lidocaine 1 patch 07/26/25 09:00 07/27/25 08:47 Lidocaine 5% Patch TRANSDERM 1 patch DAILY MANN Administration Metoprolol Tartrate 25 mg 07/25/25 13:00 07/27/25 13:00 Metoprolol Tartrate 25 Mg Tablet PO 25 mg QID MANN Administration Multivitamins/Calcium 1 tablet 07/25/25 09:00 07/27/25 08:49 Therapeutic Multivitamins/Minerals Tab (*Bkc) PO 1 tablet DAILY MANN Administration Home Med Dilantin 1 each 07/24/25 19:45 07/27/25 13:00 100mg Capsules PO 08/23/25 19:44 1 each TID [facility] Administration Pantoprazole Sodium 40 mg 07/25/25 09:00 07/27/25 08:48 Pantoprazole 40 Mg Tablet PO 40 mg DAILY MANN Administration Perflutren Lipid Microsphere 0 ml 07/24/25 23:26 Perflutren Lipid Microspheres 1.5 Ml Vial Diluted To 10 Ml Total Volume IV PUSH 07/27/25 23:26 ONCE PRN adequate visualization Protocol Phenobarbital 30 mg 07/24/25 22:00 07/27/25 13:00 Phenobarbital (*Crx) 30 Mg Tablet PO 30 mg Q8HR MANN Administration Sotalol HCl 80 mg 07/25/25 09:00 07/27/25 08:49 Sotalol Hcl 40 Mg Tablet PO 80 mg Q12HR MANN Administration Vitamin D 25 mcg 07/25/25 09:00 07/27/25 08:48 Cholecalciferol (Vitamin D3) 25 Mcg (1,000 Units) Tablet PO 25 mcg DAILY MANN Administration Radiology Results: ITS Impressions Head CT 07/24/25 12:48 IMPRESSION: 1. No acute intracranial findings. Chest X-Ray 07/24/25 14:11 Impression: CHF Labs Labs: Laboratory Results - last 24 hr 07/27/25 04:12 WBC 6.7 RBC 3.74 L Hgb 12.4 Hct 36.8 L MCV 98.4 MCH 33.2 MCHC 33.7 RDW 14.4 Plt Count 270 MPV 9.5 Sodium 135 L Potassium 4.3 Chloride 105 Carbon Dioxide 23 Anion Gap 7 BUN 21 H Creatinine 0.70 Estim Creat Clear Calc 45 Estimated GFR > 60 Glucose 104 Calcium 8.7 Total Bilirubin 0.5 AST 35 ALT 9 Alkaline Phosphatase 76 Total Protein 7.3 Albumin 3.8 Digoxin 0.7 L Quality VTE Prophylaxis VTE prophylaxis: mechanical ordered and pharmacologic ordered
--- NOTE | 2025-07-27 18:30 | PC.NURSE ---
On 07/27/25, the student, [Ramos Hall], provided care and completed [facility] documentation on this patient. I have reviewed the student's documentation and agree with the findings.
[2025-07-27] MEDS: DOCUSATE SODIUM 100 MG CAPSULE PO (21:11)
[2025-07-28] VITALS (24 sets, daily range): BP systolic 99–128; BP diastolic 40–77; PULSE 80–130; RESP 16–20; TEMP 36.3–36.9; O2SAT 95–99
[2025-07-28 04:14] LABS: Hematocrit 39.5 % (37.0-47.0); Hemoglobin 13.4 g/dL (12.0-15.0); Mean Corpuscular HGB Conc 33.9 g/dl (32-36); Mean Corpuscular Hemoglobin 33.3 pg (26-34); Mean Corpuscular Volume 98.0 fl (80-100); Platelet Count Result 285 k/mm3 (150-375); Red Blood Count 4.03 M/mm3 (4.2-5.4); White Blood Count 9.0 K/mm3 (4.5-10.0)
[2025-07-28 04:35] LABS: Alanine Aminotransferase 11 U/L (6-35); Albumin Level 3.9 g/dL (3.5-5.1); Alkaline Phosphatase 77 U/L (38-126); Anion Gap 9 mmol/L (4-12); Aspartate Amino Transferase 32 U/L (14-36); Bilirubin,Total 0.4 mg/dL (0.2-1.3); Blood Urea Nitrogen 30 mg/dL (7-17); Calcium 9.6 mg/dL (8.4-10.2); Carbon Dioxide 25 mmol/L (22-30); Chloride 104 mmol/L (98-107); Estimated CRCL calculation 46 ml/min; Estimated Glomerular Filt Rate > 60; Glucose 125 mg/dL (65-110); Potassium 4.1 mmol/L (3.4-5.0); Sodium 138 mmol/L (137-145); Total Protein 7.5 g/dL (6.3-8.2)
[2025-07-28] MEDS: PHENobarbitaL (*CRX) 30 MG TABLET PO ×3 (06:11→21:11)
[2025-07-28] MEDS: LEVOTHYROXINE SODIUM 75 MCG TABLET BY MOUTH (06:11)
[2025-07-28] MEDS: CARBIDOPA/LEVODOPA 25/100 MG TABLET 1 TABLET PO ×3 (06:12→21:12)
[2025-07-28] MEDS: APIXABAN 5 MG TABLET PO ×2 (09:46→21:12)
[2025-07-28] MEDS: LIDOCAINE 5% PATCH 1 PATCH TRANSDERM (09:46)
[2025-07-28] MEDS: THERAPEUTIC MULTIVITAMINS/MINERALS TAB (*BKC) 1 TABLET PO (09:46)
[2025-07-28] MEDS: CALCIUM/VITAMIN D 500 MG/5 MCG (200 I.U.) TABLET PO ×2 (09:47→21:12)
[2025-07-28] MEDS: FUROSEMIDE 20 MG TABLET PO (09:47)
[2025-07-28] MEDS: CHOLECALCIFEROL (VITAMIN D3) 25 MCG (1,000 UNITS) TABLET PO (09:47)
[2025-07-28] MEDS: PANTOPRAZOLE 40 MG TABLET PO (09:47)
[2025-07-28] MEDS: METOPROLOL TARTRATE 25 MG TABLET PO ×2 (09:47→13:08)
[2025-07-28] MEDS: ASPIRIN 81 MG CHEWABLE TABLET PO (09:47)
[2025-07-28] MEDS: DILANTIN 100 MG 1 EACH PO ×3 (09:48→17:14)
--- NOTE | 2025-07-28 13:28 | PC.NURSE ---
On 07/28/25, the student, [ Ramos Hall], provided care and completed [facility] documentation on this patient. I have reviewed the student's documentation and agree with the findings.
--- NOTE | 2025-07-28 13:32 | PM.PNCARD ---
Progress Note: A&P Assessment and Plan (1) Atrial fibrillation with rapid ventricular response: Code(s): I48.91 - Unspecified atrial fibrillation Status: Acute (2) Parkinsons disease: Qualifiers: Dyskinesia presence: with dyskinesia Fluctuating manifestations: unspecified whether manifestations fluctuate Qualified Code(s): G20.B1 - Parkinson's disease with dyskinesia, without mention of fluctuations Code(s): G20.A1 - Parkinson's disease without dyskinesia, without mention of fluctuations Status: Chronic (3) Pulmonary embolism: Onset Date: 11/2023 Qualifiers: Pulmonary embolism type: unspecified Chronicity: acute Acute cor pulmonale presence: without acute cor pulmonale Qualified Code(s): I26.99 - Other pulmonary embolism without acute cor pulmonale Code(s): I26.99 - Other pulmonary embolism without acute cor pulmonale Status: Acute (4) Atrial flutter with rapid ventricular response: Code(s): I48.92 - Unspecified atrial flutter Status: Chronic (5) Seizure disorder: Code(s): G40.909 - Epilepsy, unspecified, not intractable, without status epilepticus Status: Chronic (6) Hypothyroidism: Qualifiers: Hypothyroidism type: unspecified Qualified Code(s): E03.9 - Hypothyroidism, unspecified Code(s): E03.9 - Hypothyroidism, unspecified Status: Chronic (7) Hypertension: Qualifiers: Hypertension type: essential hypertension Qualified Code(s): I10 - Essential (primary) hypertension Code(s): I10 - Essential (primary) hypertension Status: Chronic Plan Assessment: 1. Patient with known history of atrial flutter /fibrillation presents with fall and was found to have atrial flutter with increased ventricular response at home at 130-140 per minute. Status post cardioversion on 12/29/2024. Patient currently on sotalol and Eliquis and Eliquis. History of PN cardioversion x5 in the past. 2. Negative cardiac enzymes for acute coronary syndrome. 3. Acute on chronic diastolic heart failure, ProBNP was 2670. Previous echocardiogram reviewed from November of 2023 which showed normal left ventricular size and systolic function estimated at 70%. Patient has moderate left ventricular hypertrophy with severely enlarged left atrium and mild to moderate mitral regurgitation and mild tricuspid regurgitation. Patient is on furosemide 20 mg daily at home but 4. Chronic anticoagulation therapy with apixaban 5 mg b.i.d.. Patient is also on aspirin and clopidogrel. This can create high risk score patient is 84 years old for bleeding. 5. History of hypertension, hypothyroidism, pulmonary embolism and Parkinson's disease as well as seizure disorder. Plan #. Currently patient is on metoprolol 25 mg q.i.d. , sotalol 80 mg b.i.d. and patient was given digoxin up to 0.75 mg IV push. Digoxin level was 0.7. Will continue patient on 0.125 mg digoxin daily. #. Patient is chronically recurrent atrial flutter despite cardioversion x5. Patient needs ablation for atrial flutter/fibrillation or AV node ablation with pacemaker. Discussed with Dr. Roel Marin. Patient was evaluated by Dr. Vaca at [place]. The recommendation was to do a AYO cardioversion followed by putting patient on Tikosyn. Patient is not agreeable for another AYO and cardioversion at this time. #. Hemoglobin is stable at 11.5 . Patient is currently on apixaban and not on aspirin and Plavix. #. Echocardiogram performed on 06/24/2025 reveals normal biventricular size and systolic function with diastolic left ventricular dysfunction and moderate left atrial enlargement. [id number] pulmonary artery hypertension noted. Overall plan is to treat heart rate with medication and continue with oral anticoagulation and discharged her. Patient will see Dr. Vaca had viruses an outpatient now for further treatment. Patient is agreeable. Walk more than 300 ft today. Subjective Date/time seen: 07/28/25 13:32 Interval history: Patient is at 84-year-old female admitted via emergency room on 07/24/2025 with complaints of left knee and left hip pain patient apparently lost her balance and fell on the left side with complaints of pain in the left hip and left knee. Patient has past medical history significant for atrial fibrillation for which she takes sotalol 80 mg b.i.d. and Eliquis 5 mg daily. No associated abdominal pain, nausea vomiting or diarrhea. No complaints of chest pain, shortness of breath, fever or chills. EKG in the emergency room revealed atrial flutter with rapid ventricular response and the ventricular rate at 131 per minute. Previous EKG reviewed from June of 2025 which also revealed atrial flutter with rapid ventricular response. Past medical history significant for Parkinson's disease, history of pulmonary embolism, hypertension, hypothyroidism, history of cerebral palsy and seizure disorder. 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 Admitting blood pressure was 140/90 and respirations are 18 per minute. Patient was afebrile and 97% O2 saturation on room air. CT scan of the head without contrast was negative for any acute pathology. X-ray of the left hip and pelvis and left knee showed normal acute fracture. Patient was given 5 mg of IV Lopressor and subsequently started on Cardizem bolus and drip. Admitting laboratory data revealed WBC count of 6.3, hemoglobin is 12.3, platelets are 264,000. Sodium 139, potassium is 4.4, BUN is 21, creatinine is 0.68. Subjective; Patient was examined at the bedside. Patient is awake alert and appears to be comfortable without shortness of breath or chest pain. Monitor shows atrial fibrillation with heart rate varied from 100-120 per minute. Patient has ambulated with physical therapy.. Blood pressure is 107/48 mm of mercury. Review of Systems Review of Systems: Twelve point review of system was completed. Negative for shortness of breath chest pain. Positive for weakness. Exam Narrative: Patient was examined at the bedside. Patient is awake and alert appears to be tired. Patient had increased pain in the right knee last night with increase in heart rate done persistently in the range of 150 per minute with atrial fibrillation. Head and neck examination is unremarkable. Sclerae is nonicteric Neck is supple. There is no JVD or carotid bruit. Thyroid is not enlarged Lungs are clear auscultation percussion Heart sounds reveal normal S1-S2. Abdomen is soft nontender. There is no hepatosplenomegaly. Bowel sounds present Extremities was no pedal edema. Neurological examination is intact. 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 Objective Data Vital Signs Vital Signs: Vital Signs - 24 hr 07/27/25 14:00 07/27/25 16:00 07/27/25 16:00 Temperature 36.3 C L Pulse Rate 96 86 Respiratory Rate 18 Blood Pressure 125/66 Pulse Oximetry 99 Oxygen Delivery Room Air 07/27/25 16:00 07/27/25 16:48 07/27/25 18:00 Temperature Pulse Rate 86 96 107 H Respiratory Rate Blood Pressure Pulse Oximetry Oxygen Delivery 07/27/25 19:48 07/27/25 20:00 07/27/25 21:10 Temperature 36.8 C Pulse Rate 103 H 98 103 H Respiratory Rate 15 Blood Pressure 111/75 Pulse Oximetry 95 Oxygen Delivery 07/27/25 21:11 07/27/25 22:00 07/27/25 23:18 Temperature 36.9 C Pulse Rate 93 99 98 Respiratory Rate 15 Blood Pressure 117/67 Pulse Oximetry 98 Oxygen Delivery 07/28/25 00:00 07/28/25 02:00 07/28/25 04:00 Temperature Pulse Rate 111 H 109 H 108 H Respiratory Rate Blood Pressure Pulse Oximetry Oxygen Delivery 07/28/25 05:07 07/28/25 06:00 07/28/25 07:54 Temperature 36.8 C 36.3 C L Pulse Rate 130 H 103 H 115 H Respiratory Rate 18 20 Blood Pressure 128/77 128/65 Pulse Oximetry 96 99 Oxygen Delivery 07/28/25 08:00 07/28/25 08:00 07/28/25 09:46 Temperature Pulse Rate 128 H 122 H 121 H Respiratory Rate 20 Blood Pressure Pulse Oximetry 99 Oxygen Delivery Room Air 07/28/25 09:47 07/28/25 10:00 07/28/25 12:00 Temperature 36.7 C Pulse Rate 121 H 122 H 108 H Respiratory Rate 16 Blood Pressure 107/48 L Pulse Oximetry 99 Oxygen Delivery 07/28/25 13:08 Temperature Pulse Rate 108 H Respiratory Rate Blood Pressure Pulse Oximetry Oxygen Delivery Intake/Output Intake/Output: Intake & Output 07/25/25 07/26/25 07/27/25 07/28/25 23:59 23:59 23:59 23:59 Intake Total 1221.3 1162.8 990 660 Output Total 525 1050 500 Balance 696.3 112.8 490 660 Meds/Results Medications: Active Medications Generic Name Dose Route Start Last Admin Trade Name Freq PRN Reason Stop Dose Admin Acetaminophen 1,000 mg 07/24/25 16:57 07/26/25 09:22 Acetaminophen 500 Mg Tablet PO 1,000 mg Q6H PRN Administration Pain 1-3 OR FEVER Apixaban 5 mg 07/24/25 21:00 07/28/25 09:46 Apixaban 5 Mg Tablet PO 5 mg Q12HR MANN Administration Aspirin 81 mg 07/25/25 09:00 07/28/25 09:47 Aspirin 81 Mg Chewable Tablet PO 81 mg DAILY MANN Administration Calcium Carbonate 500 mg 07/24/25 21:00 07/28/25 09:47 Calcium/Vitamin D 500 Mg/5 Mcg (200 I.U.) Tablet PO 500 mg Q12HR MANN Administration Carbidopa/Levodopa 1 tablet 07/25/25 16:00 07/28/25 06:12 Carbidopa/Levodopa 25/100 Mg Tablet PO 1 tablet 0630,1600,2100 MANN Administration Cyanocobalamin 1,000 mcg 07/25/25 09:00 07/27/25 08:52 Cyanocobalamin 1,000 Mcg Tablet PO 1,000 mcg MoWeFr MANN Administration Docusate Sodium 100 mg 07/24/25 21:00 07/27/25 21:11 Docusate Sodium 100 Mg Capsule PO 100 mg QHS MANN Administration Furosemide 20 mg 07/25/25 09:00 07/28/25 09:47 Furosemide 20 Mg Tablet PO 20 mg DAILY MANN Administration Levothyroxine Sodium 75 mcg 07/25/25 06:30 07/28/25 06:11 Levothyroxine Sodium 75 Mcg Tablet BY MOUTH 75 mcg DAILY@0630 MANN Administration Lidocaine 1 patch 07/26/25 09:00 07/28/25 09:46 Lidocaine 5% Patch TRANSDERM 1 patch DAILY MANN Administration Metoprolol Tartrate 25 mg 07/25/25 13:00 07/28/25 13:08 Metoprolol Tartrate 25 Mg Tablet PO 25 mg QID MANN Administration Multivitamins/Calcium 1 tablet 07/25/25 09:00 07/28/25 09:46 Therapeutic Multivitamins/Minerals Tab (*Bkc) PO 1 tablet DAILY AMNN Administration Home Med Dilantin 1 each 07/24/25 19:45 07/28/25 13:08 100mg Capsules PO 08/23/25 19:44 1 each TID MANN Administration Pantoprazole Sodium 40 mg 07/25/25 09:00 07/28/25 09:47 Pantoprazole 40 Mg Tablet PO 40 mg DAILY MANN Administration Phenobarbital 30 mg 07/24/25 22:00 07/28/25 13:08 Phenobarbital (*Crx) 30 Mg Tablet PO 30 mg Q8HR MANN Administration Sotalol HCl 80 mg 07/25/25 09:00 07/28/25 09:46 Sotalol Hcl 40 Mg Tablet PO 80 mg Q12HR MANN Administration Vitamin D 25 mcg 07/25/25 09:00 07/28/25 09:47 Cholecalciferol (Vitamin D3) 25 Mcg (1,000 Units) Tablet PO 25 mcg DAILY MANN Administration Radiology Results: ITS Impressions Head CT 07/24/25 12:48 IMPRESSION: 1. No acute intracranial findings. Chest X-Ray 07/24/25 14:11 Impression: CHF Labs Labs: Laboratory Results - last 24 hr 07/28/25 04:04 WBC 9.0 RBC 4.03 L Hgb 13.4 Hct 39.5 MCV 98.0 MCH 33.3 MCHC 33.9 RDW 14.6 H Plt Count 285 MPV 9.2 Sodium 138 Potassium 4.1 Chloride 104 Carbon Dioxide 25 Anion Gap 9 BUN 30 H Creatinine 0.67 L Estim Creat Clear Calc 46 Estimated GFR > 60 Glucose 125 H Calcium 9.6 Total Bilirubin 0.4 AST 32 ALT 11 Alkaline Phosphatase 77 Total Protein 7.5 Albumin 3.9
[2025-07-28] MEDS: ACETAMINOPHEN 500 MG TABLET 1000 MG PO (14:00)
[2025-07-28] MEDS: DIGOXIN TAB 125 MCG TABLET PO (14:26)
[2025-07-28] MEDS: METOPROLOL SUCCINATE EXT REL 50 MG TABCR PO (17:13)
--- NOTE | 2025-07-28 18:21 | PM.IMPN ---
Progress Note: A&P Assessment and Plan (1) Atrial fibrillation with rapid ventricular response: Code(s): I48.91 - Unspecified atrial fibrillation Status: Acute Assessment and Plan: Patient with chronic AFib on 80 mg sotalol Q12 and Eliquis 5 mg q12 ECG shows AFib RVR. No associated symptoms such as chest pain, shortness a breath. Troponin negative. Recurrent afib despite several cardioversion attempts. Patient reports a history of amulet LAAO placement by Dr. Couch at [facility] LAAO leakage thus patient remains on eliquis and is currently holding plavix Primary cardiology: Dr. Marin -10 mg diltiazem push in ED failed to convert patient, started on diltiazem drip 5 milligrams/hour -continue sotalol 80 mg q12 and Eliquis 5 mg q12 - tele monitor reviewed, afib with HR in the upper 80s-100 - echo: systolic function is normal with noted diastolic dysfunction and mild to mod pulmonary htn prior echo 11/29/23: LVEF >70% with with mitral and tricuspid regurgitation -cardiology consult Refer patient to electrophysiology for ablation for atrial flutter Continue metoprolol tartrate 25 mg q.i.d.. and sotalol 80 mg q.12 hours. Patient remained in afib RVR overnight requiring 0.5 mg IV digoxin. Patient remains asymptomatic denying chest pain, palpitations and shortness of breath. Given another 0.25 mg IV digoxin today and plan to obtain a digoxin level tomorrow. Continue metoprolol tartrate 25 mg q.i.d.. Decreased IV Cardizem to 2.5 mg per hour for 2 hours and then discontinue. HR remain stable at this time. Continue to monitor via tele. Remains in IMU. (2) CHF (congestive heart failure): Qualifiers: Heart failure type: unspecified Heart failure chronicity: chronic Qualified Code(s): I50.9 - Heart failure, unspecified Code(s): I50.9 - Heart failure, unspecified Status: Chronic Assessment and Plan: Patient with a history of CHF and complains of recent dyspnea on exertion. Possible that CHF exacerbation related to afib RVR - Recieved 40 mg IV lasix n the ED, remains on her home 20 mg PO lasix - BNP: 2670 - EKG on admission showed Afib RVR HR 131 - Chest XR: CHF - echo: systolic function is normal with noted diastolic dysfunction and mild to mod pulmonary htn prior echo 11/29/23: LVEF >70% with with mitral and tricuspid regurgitation - Monitor vital signs, I&Os, BUN/creatinine, daily weights, neuro status and patient is a fall risk - Monitor serum electrolytes, Keep serum Potassium>4 and serum Magnesium>2 and CBC Appears euvolemic. Denies shortness of breath with clear lung sounds and no edema. (3) Fall: Code(s): W19.XXXA - Unspecified fall, initial encounter Status: Acute Assessment and Plan: Mechanical ground level fall at the senior care onto the left side resulting in left knee and hip pain Denies dizziness/lightheadedness prior to fall - Head CT: no acute intracranial abnormality - Knee and hip XR: Unremarkable Continues to endorse knee discomfort. No pain with passive or active range of motion. No noted swelling. No bruising or wounds noted. Lidocaine patch ordered. - PT/OT consulted for discharge recommendations Recommending outpatient therapy (4) Parkinsons disease: Qualifiers: Dyskinesia presence: with dyskinesia Fluctuating manifestations: unspecified whether manifestations fluctuate Qualified Code(s): G20.B1 - Parkinson's disease with dyskinesia, without mention of fluctuations Code(s): G20.A1 - Parkinson's disease without dyskinesia, without mention of fluctuations Status: Chronic Assessment and Plan: Continue carbidopa/levodopa (5) Seizure disorder: Code(s): G40.909 - Epilepsy, unspecified, not intractable, without status epilepticus Status: Chronic Assessment and Plan: Continue phenobarbital 30 mg q.8 hours Plan patient with persistent A. fib and has had previous cardio version, her HR is reasonably controlled with metoprolol and sotalol. seen by the machine attendant and recommending once patient weaned of sotalol, patient can be loaded with dofetillde and have AYO cardioversion and patient is agreeable with the plan as patient is not keen going to [facility], in the event cardioversion fails in that case will need ablation procedure, patient remain clinically stable and has no complaints, will monitor have PT/OT evaluate the patient. patient is on metoprolol 25mg BID, and sotalol 80mg BID, and on digoxin, patient remains in A.fib but rate is controlled, patient does not want cardio version as she had 5 cardio version and remains in A.fib, patient remains clinically stable, was able to walk in hallways without any difficulty. will monitor and plan. Subjective Date/time seen: 07/28/25 18:21 Interval history: 84 year old female with past medical history of parkinsons, afib, pe, frequent falls, hypothyroidism, cerebral palsy, seizure disorder presents to the hospital from the senior care after a mechanical fall onto the left side resulting in left hip and knee pain. Patient is pleasant sitting up in the bed. Overnight patient remained in AFib rvr requiring cardiology to be notified and patient given IV digoxin with improvement to HR. She remained asymptomatic at that time. She has no other complaints denying chest pain, shortness of breath, palpitations, nausea/vomiting and abdominal pain. patient with persistent A. fib and has had previous cardio version, her HR is reasonably controlled with metoprolol and sotalol. seen by the machine attendant and recommending once patient weaned of sotalol, patient can be loaded with dofetillde and have AYO cardioversion and patient is agreeable with the plan as patient is not keen going to [facility], in the event cardioversion fails in that case will need ablation procedure, patient remain clinically stable and has no complaints, will monitor have PT/OT evaluate the patient. patient is on metoprolol 25mg BID, and sotalol 80mg BID, and on digoxin, patient remains in A.fib but rate is controlled, patient does not want cardio version as she had 5 cardio version and remains in A.fib, patient remains clinically stable, was able to walk in hallways without any difficulty. will monitor and plan. Review of Systems Review of Systems: All systems reviewed & are unremarkable except as noted in HPI and below Exam Narrative: Patient is comfortable, NAD HEENT: eyes are clear and none icteric LUNGS:CTA HEART: RR S1S2 ABD: BS+, Soft and nontender Lower extremities: no edema SKIN: nonjaundiced Neuro: grossly intact. Objective Data Vital Signs Vital Signs: Vital Signs - 24 hr 07/27/25 19:48 07/27/25 20:00 07/27/25 21:10 Temperature 36.8 C Pulse Rate 103 H 98 103 H Respiratory Rate 15 Blood Pressure 111/75 Pulse Oximetry 95 Oxygen Delivery 07/27/25 21:11 07/27/25 22:00 07/27/25 23:18 Temperature 36.9 C Pulse Rate 93 99 98 Respiratory Rate 15 Blood Pressure 117/67 Pulse Oximetry 98 Oxygen Delivery 07/28/25 00:00 07/28/25 02:00 07/28/25 04:00 Temperature Pulse Rate 111 H 109 H 108 H Respiratory Rate Blood Pressure Pulse Oximetry Oxygen Delivery 07/28/25 05:07 07/28/25 06:00 07/28/25 07:54 Temperature 36.8 C 36.3 C L Pulse Rate 130 H 103 H 115 H Respiratory Rate 18 20 Blood Pressure 128/77 128/65 Pulse Oximetry 96 99 Oxygen Delivery 07/28/25 08:00 07/28/25 08:00 07/28/25 09:46 Temperature Pulse Rate 128 H 122 H 121 H Respiratory Rate 20 Blood Pressure Pulse Oximetry 99 Oxygen Delivery Room Air 07/28/25 09:47 07/28/25 10:00 07/28/25 12:00 Temperature 36.7 C Pulse Rate 121 H 122 H 108 H Respiratory Rate 16 Blood Pressure 107/48 L Pulse Oximetry 99 Oxygen Delivery 07/28/25 12:00 07/28/25 12:00 07/28/25 13:08 Temperature Pulse Rate 118 H 108 H Respiratory Rate Blood Pressure Pulse Oximetry Oxygen Delivery Room Air 07/28/25 14:00 07/28/25 14:26 07/28/25 15:36 Temperature 36.7 C Pulse Rate 121 H 118 H 98 Respiratory Rate 16 Blood Pressure 101/40 L Pulse Oximetry 95 Oxygen Delivery 07/28/25 16:00 07/28/25 16:00 07/28/25 17:13 Temperature Pulse Rate 103 H 99 Respiratory Rate Blood Pressure Pulse Oximetry Oxygen Delivery Room Air Intake/Output Intake/Output: Intake & Output 07/25/25 07/26/25 07/27/25 07/28/25 23:59 23:59 23:59 23:59 Intake Total 1221.3 1162.8 990 660 Output Total 525 1050 500 Balance 696.3 112.8 490 660 Meds/Results Medications: Active Medications Generic Name Dose Route Start Last Admin Trade Name Freq PRN Reason Stop Dose Admin Acetaminophen 1,000 mg 07/24/25 16:57 07/28/25 14:00 Acetaminophen 500 Mg Tablet PO 1,000 mg Q6H PRN Administration Pain 1-3 OR FEVER Apixaban 5 mg 07/24/25 21:00 07/28/25 09:46 Apixaban 5 Mg Tablet PO 5 mg Q12HR MANN Administration Aspirin 81 mg 07/25/25 09:00 07/28/25 09:47 Aspirin 81 Mg Chewable Tablet PO 81 mg DAILY MANN Administration Calcium Carbonate 500 mg 07/24/25 21:00 07/28/25 09:47 Calcium/Vitamin D 500 Mg/5 Mcg (200 I.U.) Tablet PO 500 mg Q12HR MANN Administration Carbidopa/Levodopa 1 tablet 07/25/25 16:00 07/28/25 17:13 Carbidopa/Levodopa 25/100 Mg Tablet PO 1 tablet 0630,1600,2100 MANN Administration Cyanocobalamin 1,000 mcg 07/25/25 09:00 07/27/25 08:52 Cyanocobalamin 1,000 Mcg Tablet PO 1,000 mcg MoWeFr MANN Administration Digoxin 125 mcg 07/28/25 14:20 07/28/25 14:26 Digoxin Tab 125 Mcg Tablet PO 125 mcg QAM MANN Administration Docusate Sodium 100 mg 07/24/25 21:00 07/27/25 21:11 Docusate Sodium 100 Mg Capsule PO 100 mg QHS MANN Administration Furosemide 20 mg 07/25/25 09:00 07/28/25 09:47 Furosemide 20 Mg Tablet PO 20 mg DAILY MANN Administration Levothyroxine Sodium 75 mcg 07/25/25 06:30 07/28/25 06:11 Levothyroxine Sodium 75 Mcg Tablet BY MOUTH 75 mcg DAILY@0630 MANN Administration Lidocaine 1 patch 07/26/25 09:00 07/28/25 09:46 Lidocaine 5% Patch TRANSDERM 1 patch DAILY MANN Administration Metoprolol Succinate 50 mg 07/28/25 17:00 07/28/25 17:13 Metoprolol Succinate Ext Rel 50 Mg Tabcr PO 50 mg BID MANN Administration Multivitamins/Calcium 1 tablet 07/25/25 09:00 07/28/25 09:46 Therapeutic Multivitamins/Minerals Tab (*Bkc) PO 1 tablet DAILY MANN Administration Home Med Dilantin 1 each 07/24/25 19:45 07/28/25 17:14 100mg Capsules PO 08/23/25 19:44 1 each TID MANN Administration Pantoprazole Sodium 40 mg 07/25/25 09:00 07/28/25 09:47 Pantoprazole 40 Mg Tablet PO 40 mg DAILY MANN Administration Phenobarbital 30 mg 07/24/25 22:00 07/28/25 13:08 Phenobarbital (*Crx) 30 Mg Tablet PO 30 mg Q8HR MANN Administration Sotalol HCl 80 mg 07/25/25 09:00 07/28/25 09:46 Sotalol Hcl 40 Mg Tablet PO 80 mg Q12HR MANN Administration Vitamin D 25 mcg 07/25/25 09:00 07/28/25 09:47 Cholecalciferol (Vitamin D3) 25 Mcg (1,000 Units) Tablet PO 25 mcg DAILY MANN Administration Radiology Results: ITS Impressions Head CT 07/24/25 12:48 IMPRESSION: 1. No acute intracranial findings. Chest X-Ray 07/24/25 14:11 Impression: CHF Labs Labs: Laboratory Results - last 24 hr 07/28/25 04:04 WBC 9.0 RBC 4.03 L Hgb 13.4 Hct 39.5 MCV 98.0 MCH 33.3 MCHC 33.9 RDW 14.6 H Plt Count 285 MPV 9.2 Sodium 138 Potassium 4.1 Chloride 104 Carbon Dioxide 25 Anion Gap 9 BUN 30 H Creatinine 0.67 L Estim Creat Clear Calc 46 Estimated GFR > 60 Glucose 125 H Calcium 9.6 Total Bilirubin 0.4 AST 32 ALT 11 Alkaline Phosphatase 77 Total Protein 7.5 Albumin 3.9 Quality VTE Prophylaxis VTE prophylaxis: mechanical ordered and pharmacologic ordered
[2025-07-28] MEDS: DOCUSATE SODIUM 100 MG CAPSULE PO (21:12)
[2025-07-29] VITALS (11 sets, daily range): BP systolic 108–124; BP diastolic 59–70; PULSE 76–150; RESP 16–17; TEMP 36.4–36.7; O2SAT 93–99
[2025-07-29 03:34] LABS: Hematocrit 34.8 % (37.0-47.0); Hemoglobin 11.7 g/dL (12.0-15.0); Mean Corpuscular HGB Conc 33.6 g/dl (32-36); Mean Corpuscular Hemoglobin 33.5 pg (26-34); Mean Corpuscular Volume 99.7 fl (80-100); Platelet Count Result 243 k/mm3 (150-375); Red Blood Count 3.49 M/mm3 (4.2-5.4); White Blood Count 7.0 K/mm3 (4.5-10.0)
[2025-07-29 03:57] LABS: Alanine Aminotransferase 7 U/L (6-35); Albumin Level 3.5 g/dL (3.5-5.1); Alkaline Phosphatase 65 U/L (38-126); Anion Gap 6 mmol/L (4-12); Aspartate Amino Transferase 24 U/L (14-36); Bilirubin,Total 0.6 mg/dL (0.2-1.3); Blood Urea Nitrogen 30 mg/dL (7-17); Calcium 8.7 mg/dL (8.4-10.2); Carbon Dioxide 26 mmol/L (22-30); Chloride 103 mmol/L (98-107); Estimated CRCL calculation 41 ml/min; Estimated Glomerular Filt Rate > 60; Glucose 100 mg/dL (65-110); Potassium 3.9 mmol/L (3.4-5.0); Sodium 135 mmol/L (137-145); Total Protein 6.7 g/dL (6.3-8.2)
[2025-07-29] MEDS: CARBIDOPA/LEVODOPA 25/100 MG TABLET 1 TABLET PO (06:34)
[2025-07-29] MEDS: PHENobarbitaL (*CRX) 30 MG TABLET PO (06:34)
[2025-07-29] MEDS: LEVOTHYROXINE SODIUM 75 MCG TABLET BY MOUTH (06:34)
[2025-07-29] MEDS: DIGOXIN TAB 125 MCG TABLET PO (08:52)
[2025-07-29] MEDS: FUROSEMIDE 20 MG TABLET PO (08:53)
[2025-07-29] MEDS: CALCIUM/VITAMIN D 500 MG/5 MCG (200 I.U.) TABLET PO (08:54)
[2025-07-29] MEDS: CHOLECALCIFEROL (VITAMIN D3) 25 MCG (1,000 UNITS) TABLET PO (08:54)
[2025-07-29] MEDS: METOPROLOL SUCCINATE EXT REL 50 MG TABCR PO (08:54)
[2025-07-29] MEDS: THERAPEUTIC MULTIVITAMINS/MINERALS TAB (*BKC) 1 TABLET PO (08:54)
[2025-07-29] MEDS: ASPIRIN 81 MG CHEWABLE TABLET PO (08:54)
[2025-07-29] MEDS: PANTOPRAZOLE 40 MG TABLET PO (08:55)
[2025-07-29] MEDS: DILANTIN 100 MG 1 EACH PO (08:55)
[2025-07-29] MEDS: LIDOCAINE 5% PATCH 1 PATCH TRANSDERM (08:55)
[2025-07-29] MEDS: APIXABAN 5 MG TABLET PO (08:55)
--- NOTE | 2025-07-29 09:32 | PM.PNCARD ---
Progress Note: A&P Assessment and Plan (1) Atrial fibrillation with rapid ventricular response: Code(s): I48.91 - Unspecified atrial fibrillation Status: Acute (2) Parkinsons disease: Qualifiers: Dyskinesia presence: with dyskinesia Fluctuating manifestations: unspecified whether manifestations fluctuate Qualified Code(s): G20.B1 - Parkinson's disease with dyskinesia, without mention of fluctuations Code(s): G20.A1 - Parkinson's disease without dyskinesia, without mention of fluctuations Status: Chronic (3) Pulmonary embolism: Onset Date: 11/2023 Qualifiers: Pulmonary embolism type: unspecified Chronicity: acute Acute cor pulmonale presence: without acute cor pulmonale Qualified Code(s): I26.99 - Other pulmonary embolism without acute cor pulmonale Code(s): I26.99 - Other pulmonary embolism without acute cor pulmonale Status: Acute (4) Atrial flutter with rapid ventricular response: Code(s): I48.92 - Unspecified atrial flutter Status: Chronic (5) Seizure disorder: Code(s): G40.909 - Epilepsy, unspecified, not intractable, without status epilepticus Status: Chronic (6) Hypothyroidism: Qualifiers: Hypothyroidism type: unspecified Qualified Code(s): E03.9 - Hypothyroidism, unspecified Code(s): E03.9 - Hypothyroidism, unspecified Status: Chronic (7) Hypertension: Qualifiers: Hypertension type: essential hypertension Qualified Code(s): I10 - Essential (primary) hypertension Code(s): I10 - Essential (primary) hypertension Status: Chronic Plan Assessment: 1. Patient with known history of atrial flutter /fibrillation presents with fall and was found to have atrial flutter with increased ventricular response at home at 130-140 per minute. Status post cardioversion on 12/29/2024. Patient currently on sotalol and Eliquis and Eliquis. History of PN cardioversion x5 in the past. 2. Negative cardiac enzymes for acute coronary syndrome. 3. Acute on chronic diastolic heart failure, ProBNP was 2670. Previous echocardiogram reviewed from November of 2023 which showed normal left ventricular size and systolic function estimated at 70%. Patient has moderate left ventricular hypertrophy with severely enlarged left atrium and mild to moderate mitral regurgitation and mild tricuspid regurgitation. Patient is on furosemide 20 mg daily at home, which has been resumed. Patient appears compensated 4. Chronic anticoagulation therapy with apixaban 5 mg b.i.d. 5. History of hypertension, hypothyroidism, pulmonary embolism and Parkinson's disease as well as seizure disorder. Plan #. Currently patient is on metoprolol 25 mg q.i.d. , sotalol 80 mg b.i.d. and was had digoxin IV load Digoxin level was 0.7. Will continue patient on 0.125 mg digoxin daily. #. Patient is chronically recurrent atrial flutter despite cardioversion x5. Patient needs ablation for atrial flutter/fibrillation or AV node ablation with pacemaker. The recommendation was to do a AYO cardioversion followed by putting patient on Tikosyn. #. Hemoglobin is stable at 11.7 . Patient is currently on apixaban and aspirin #. Echocardiogram performed on 06/24/2025 reveals normal biventricular size and systolic function with diastolic left ventricular dysfunction and moderate left atrial enlargement. [id number] pulmonary artery hypertension noted. Patient heart overall controlled Will continue sotalol, metoprolol and digoxin at this time she will follow up with Dr. Vaca at [place] to discuss tikosyn load vs ablation stable CV standpoint when ok with others Subjective Date/time seen: 07/29/25 09:32 Interval history: Patient is at 84-year-old female admitted via emergency room on 07/24/2025 with complaints of left knee and left hip pain patient apparently lost her balance and fell on the left side with complaints of pain in the left hip and left knee. Patient has past medical history significant for atrial fibrillation for which she takes sotalol 80 mg b.i.d. and Eliquis 5 mg daily. No associated abdominal pain, nausea vomiting or diarrhea. No complaints of chest pain, shortness of breath, fever or chills. EKG in the emergency room revealed atrial flutter with rapid ventricular response and the ventricular rate at 131 per minute. Previous EKG reviewed from June of 2025 which also revealed atrial flutter with rapid ventricular response. Past medical history significant for Parkinson's disease, history of pulmonary embolism, hypertension, hypothyroidism, history of cerebral palsy and seizure disorder. 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 Admitting blood pressure was 140/90 and respirations are 18 per minute. Patient was afebrile and 97% O2 saturation on room air. CT scan of the head without contrast was negative for any acute pathology. X-ray of the left hip and pelvis and left knee showed normal acute fracture. Patient was given 5 mg of IV Lopressor and subsequently started on Cardizem bolus and drip. Admitting laboratory data revealed WBC count of 6.3, hemoglobin is 12.3, platelets are 264,000. Sodium 139, potassium is 4.4, BUN is 21, creatinine is 0.68. Subjective; Patient was examined at the bedside. Patient is awake alert and appears to be comfortable without shortness of breath or chest pain. Monitor shows atrial fibrillation with heart rate varied from 100-120 per minute. Patient has ambulated with physical therapy.. Blood pressure is 107/48 mm of mercury. Date of Service 07/29/25: Patient sitting up in chair. She still reports some shorntess of breath, but was able to walk around the floor this am. She denies any chest pain or pressure. No palpitations or dizziness. Review of Systems Review of Systems: Twelve point review of system was completed. Negative for shortness of breath chest pain. Positive for weakness. Exam Narrative: Head and neck examination is unremarkable. Sclerae is nonicteric Neck is supple. There is no JVD or carotid bruit. Thyroid is not enlarged Lungs are clear auscultation percussion Heart sounds irreg irreg Extremities was no pedal edema. Neurological examination is intact. 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 Objective Data Vital Signs Vital Signs: Vital Signs - 24 hr 07/28/25 09:46 07/28/25 09:47 07/28/25 10:00 Temperature Pulse Rate 121 H 121 H 122 H Respiratory Rate Blood Pressure Pulse Oximetry Oxygen Delivery 07/28/25 12:00 07/28/25 12:00 07/28/25 12:00 Temperature 36.7 C Pulse Rate 108 H 118 H Respiratory Rate 16 Blood Pressure 107/48 L Pulse Oximetry 99 Oxygen Delivery Room Air 07/28/25 13:08 07/28/25 14:00 07/28/25 14:26 Temperature Pulse Rate 108 H 121 H 118 H Respiratory Rate Blood Pressure Pulse Oximetry Oxygen Delivery 07/28/25 15:36 07/28/25 16:00 07/28/25 16:00 Temperature 36.7 C Pulse Rate 98 103 H Respiratory Rate 16 Blood Pressure 101/40 L Pulse Oximetry 95 Oxygen Delivery Room Air 07/28/25 17:13 07/28/25 18:00 07/28/25 19:45 Temperature 36.9 C Pulse Rate 99 93 92 Respiratory Rate 16 Blood Pressure 99/56 L Pulse Oximetry 96 Oxygen Delivery 07/28/25 20:00 07/28/25 21:11 07/28/25 21:28 Temperature Pulse Rate 80 102 H Respiratory Rate Blood Pressure Pulse Oximetry 95 Oxygen Delivery Room Air 07/28/25 22:00 07/28/25 23:33 07/29/25 00:00 Temperature 36.6 C Pulse Rate 86 95 86 Respiratory Rate 16 Blood Pressure 101/45 L Pulse Oximetry 95 Oxygen Delivery 07/29/25 02:00 07/29/25 04:00 07/29/25 04:02 Temperature 36.4 C L Pulse Rate 86 86 83 Respiratory Rate 16 Blood Pressure 110/70 Pulse Oximetry 93 Oxygen Delivery 07/29/25 06:00 07/29/25 08:00 07/29/25 08:52 Temperature 36.4 C L Pulse Rate 86 150 H 85 Respiratory Rate 17 Blood Pressure 124/65 Pulse Oximetry 97 Oxygen Delivery 07/29/25 08:53 07/29/25 08:54 Temperature Pulse Rate 84 84 Respiratory Rate Blood Pressure Pulse Oximetry Oxygen Delivery Intake/Output Intake/Output: Intake & Output 07/26/25 07/27/25 07/28/25 07/29/25 23:59 23:59 23:59 23:59 Intake Total 1162.8 990 960 550 Output Total 1050 500 Balance 112.8 490 960 550 Meds/Results Medications: Active Medications Generic Name Dose Route Start Last Admin Trade Name Freq PRN Reason Stop Dose Admin Acetaminophen 1,000 mg 07/24/25 16:57 07/28/25 14:00 Acetaminophen 500 Mg Tablet PO 1,000 mg Q6H PRN Administration Pain 1-3 OR FEVER Apixaban 5 mg 07/24/25 21:00 07/29/25 08:55 Apixaban 5 Mg Tablet PO 5 mg Q12HR MANN Administration Aspirin 81 mg 07/25/25 09:00 07/29/25 08:54 Aspirin 81 Mg Chewable Tablet PO 81 mg DAILY MANN Administration Calcium Carbonate 500 mg 07/24/25 21:00 07/29/25 08:54 Calcium/Vitamin D 500 Mg/5 Mcg (200 I.U.) Tablet PO 500 mg Q12HR MANN Administration Carbidopa/Levodopa 1 tablet 07/25/25 16:00 07/29/25 06:34 Carbidopa/Levodopa 25/100 Mg Tablet PO 1 tablet 0630,1600,2100 MANN Administration Cyanocobalamin 1,000 mcg 07/25/25 09:00 07/27/25 08:52 Cyanocobalamin 1,000 Mcg Tablet PO 1,000 mcg MoWeFr MANN Administration Digoxin 125 mcg 07/28/25 14:20 07/29/25 08:52 Digoxin Tab 125 Mcg Tablet PO 125 mcg QAM MANN Administration Docusate Sodium 100 mg 07/24/25 21:00 07/28/25 21:12 Docusate Sodium 100 Mg Capsule PO 100 mg QHS MANN Administration Furosemide 20 mg 07/25/25 09:00 07/29/25 08:53 Furosemide 20 Mg Tablet PO 20 mg DAILY MANN Administration Levothyroxine Sodium 75 mcg 07/25/25 06:30 07/29/25 06:34 Levothyroxine Sodium 75 Mcg Tablet BY MOUTH 75 mcg DAILY@0630 MANN Administration Lidocaine 1 patch 07/26/25 09:00 07/29/25 08:55 Lidocaine 5% Patch TRANSDERM 1 patch DAILY MANN Administration Metoprolol Succinate 50 mg 07/28/25 17:00 07/29/25 08:54 Metoprolol Succinate Ext Rel 50 Mg Tabcr PO 50 mg BID MANN Administration Multivitamins/Calcium 1 tablet 07/25/25 09:00 07/29/25 08:54 Therapeutic Multivitamins/Minerals Tab (*Bkc) PO 1 tablet DAILY MANN Administration Home Med Dilantin 1 each 07/24/25 19:45 07/29/25 08:55 100mg Capsules PO 08/23/25 19:44 1 each TID MANN Administration Pantoprazole Sodium 40 mg 07/25/25 09:00 07/29/25 08:55 Pantoprazole 40 Mg Tablet PO 40 mg DAILY MANN Administration Phenobarbital 30 mg 07/24/25 22:00 07/29/25 06:34 Phenobarbital (*Crx) 30 Mg Tablet PO 30 mg Q8HR MANN Administration Sotalol HCl 80 mg 07/25/25 09:00 07/29/25 08:53 Sotalol Hcl 40 Mg Tablet PO 80 mg Q12HR MANN Administration Vitamin D 25 mcg 07/25/25 09:00 07/29/25 08:54 Cholecalciferol (Vitamin D3) 25 Mcg (1,000 Units) Tablet PO 25 mcg DAILY MANN Administration Radiology Results: ITS Impressions Head CT 07/24/25 12:48 IMPRESSION: 1. No acute intracranial findings. Chest X-Ray 07/24/25 14:11 Impression: CHF Labs Labs: Laboratory Results - last 24 hr 07/29/25 03:28 WBC 7.0 RBC 3.49 L Hgb 11.7 L Hct 34.8 L MCV 99.7 MCH 33.5 MCHC 33.6 RDW 14.7 H Plt Count 243 MPV 8.9 Sodium 135 L Potassium 3.9 Chloride 103 Carbon Dioxide 26 Anion Gap 6 BUN 30 H Creatinine 0.77 Estim Creat Clear Calc 41 Estimated GFR > 60 Glucose 100 Calcium 8.7 Total Bilirubin 0.6 AST 24 ALT 7 Alkaline Phosphatase 65 Total Protein 6.7 Albumin 3.5
[2025-07-29] MEDS: CYANOCOBALAMIN 1,000 MCG TABLET 1000 MCG PO (09:47)
--- NOTE | 2025-07-29 12:00 | P.DS_ITS ---
DS: Admitting Diagnosis Discharge Date 06/28/25 Admitting Diagnosis Left knee and hip pain; rapid heart rate DS: Discharge Diagnosis Discharge Diagnosis (1) Atrial fibrillation with rapid ventricular response: Code(s): I48.91 - Unspecified atrial fibrillation Status: Acute Assessment and Plan: Patient with chronic AFib on 80 mg sotalol Q12 and Eliquis 5 mg q12 ECG shows AFib RVR. No associated symptoms such as chest pain, shortness a breath. Troponin negative. Recurrent afib despite several cardioversion attempts. Patient reports a history of amulet LAAO placement by Dr. Couch at [facility] LAAO leakage thus patient remains on eliquis and is currently holding plavix Primary cardiology: Dr. Marin -10 mg diltiazem push in ED failed to convert patient, started on diltiazem drip 5 milligrams/hour -continue sotalol 80 mg q12 and Eliquis 5 mg q12 - tele monitor reviewed, afib with HR in the upper 80s-100 - echo: systolic function is normal with noted diastolic dysfunction and mild to mod pulmonary htn prior echo 11/29/23: LVEF >70% with with mitral and tricuspid regurgitation -cardiology consult Refer patient to electrophysiology for ablation for atrial flutter Continue metoprolol tartrate 25 mg q.i.d.. and sotalol 80 mg q.12 hours. Patient remained in afib RVR overnight requiring 0.5 mg IV digoxin. Patient remains asymptomatic denying chest pain, palpitations and shortness of breath. Given another 0.25 mg IV digoxin today and plan to obtain a digoxin level tomorrow. Continue metoprolol tartrate 25 mg q.i.d.. Decreased IV Cardizem to 2.5 mg per hour for 2 hours and then discontinue. HR remain stable at this time. Continue to monitor via tele. Remains in IMU. (2) CHF (congestive heart failure): Qualifiers: Heart failure type: unspecified Heart failure chronicity: chronic Qualified Code(s): I50.9 - Heart failure, unspecified Code(s): I50.9 - Heart failure, unspecified Status: Chronic Assessment and Plan: Patient with a history of CHF and complains of recent dyspnea on exertion. Possible that CHF exacerbation related to afib RVR - Recieved 40 mg IV lasix n the ED, remains on her home 20 mg PO lasix - BNP: 2670 - EKG on admission showed Afib RVR HR 131 - Chest XR: CHF - echo: systolic function is normal with noted diastolic dysfunction and mild to mod pulmonary htn prior echo 11/29/23: LVEF >70% with with mitral and tricuspid regurgitation - Monitor vital signs, I&Os, BUN/creatinine, daily weights, neuro status and patient is a fall risk - Monitor serum electrolytes, Keep serum Potassium>4 and serum Magnesium>2 and CBC Appears euvolemic. Denies shortness of breath with clear lung sounds and no edema. (3) Fall: Code(s): W19.XXXA - Unspecified fall, initial encounter Status: Acute Assessment and Plan: Mechanical ground level fall at the half-way onto the left side resulting in left knee and hip pain Denies dizziness/lightheadedness prior to fall - Head CT: no acute intracranial abnormality - Knee and hip XR: Unremarkable Continues to endorse knee discomfort. No pain with passive or active range of motion. No noted swelling. No bruising or wounds noted. Lidocaine patch ordered. - PT/OT consulted for discharge recommendations Recommending outpatient therapy (4) Parkinsons disease: Qualifiers: Dyskinesia presence: with dyskinesia Fluctuating manifestations: unspecified whether manifestations fluctuate Qualified Code(s): G20.B1 - Parkinson's disease with dyskinesia, without mention of fluctuations Code(s): G20.A1 - Parkinson's disease without dyskinesia, without mention of fluctuations Status: Chronic Assessment and Plan: Continue carbidopa/levodopa (5) Seizure disorder: Code(s): G40.909 - Epilepsy, unspecified, not intractable, without status epilepticus Status: Chronic Assessment and Plan: Continue phenobarbital 30 mg q.8 hours Plan patient with persistent A. fib and has had previous cardio version, her HR is reasonably controlled with metoprolol and sotalol. seen by the technical staff engineer and recommending once patient weaned of sotalol, patient can be loaded with dofetillde and have AYO cardioversion and patient is agreeable with the plan as patient is not keen going to [facility], in the event cardioversion fails in that case will need ablation procedure, patient remain clinically stable and has no complaints, will monitor have PT/OT evaluate the patient. patient is on metoprolol 25mg BID, and sotalol 80mg BID, and on digoxin, patient remains in A.fib but rate is controlled, patient does not want cardio version as she had 5 cardio version and remains in A.fib, patient remains clinically stable, was able to walk in hallways without any difficulty. will monitor and plan. DS: Summary Hospital Course Hospital Course: patient with persistent A. fib and has had previous cardio version, her HR is reasonably controlled with metoprolol and sotalol. seen by the technical staff engineer and recommending once patient weaned of sotalol, patient can be loaded with dofetillde and have AYO cardioversion and patient is agreeable with the plan as patient is not keen going to [facility], in the event cardioversion fails in that case will need ablation procedure, patient remain clinically stable and has no complaints, will monitor have PT/OT evaluate the patient. patient is on metoprolol 25mg BID, and sotalol 80mg BID, and on digoxin, patient remains in A.fib but rate is controlled, patient does not want cardio version as she had 5 cardio version and remains in A.fib, patient remains clinically stable, was able to walk in hallways without any difficulty. will monitor and plan. patient clinical symptoms have improved and seen by the technical staff engineer and medical management is in place however patient needs to be seen by EP at [facility] for ablation, patient is clinically stable, will discharge home today. Time Spent with Patient Time attestation: Total time spent providing and/or coordinating discharge services: Exam Narrative: Patient is comfortable, NAD HEENT: eyes are clear and none icteric LUNGS:CTA HEART: RR S1S2 ABD: BS+, Soft and nontender Lower extremities: no edema SKIN: nonjaundiced Neuro: grossly intact. DS: Data Data Completed and Pending Labs on day of discharge: Labs from last 24 hours 07/29/25 03:28 WBC 7.0 RBC 3.49 L Hgb 11.7 L Hct 34.8 L MCV 99.7 MCH 33.5 MCHC 33.6 RDW 14.7 H Plt Count 243 MPV 8.9 Sodium 135 L Potassium 3.9 Chloride 103 Carbon Dioxide 26 Anion Gap 6 BUN 30 H Creatinine 0.77 Estim Creat Clear Calc 41 Estimated GFR > 60 Glucose 100 Calcium 8.7 Total Bilirubin 0.6 AST 24 ALT 7 Alkaline Phosphatase 65 Total Protein 6.7 Albumin 3.5 Discharge Plan Discharge Attending physician on discharge: Aris Bustos Consulting providers: Abigail Osei; Humberto Larose; Cristopher Shea; Cici Anaya; Mike Nixon; Deion Marin; Teri Morse; Francisco Miller; Massimo Carmona Discharging Clinician: Hallie Berkowitz Patient Disposition: Home with Home Health Service Activity: as tolerated Diet: heart healthy Discharge Instructions: Care Coordination: [facility] to follow pt after discharge for RN/PT/OT. [facility] will call to set up an admission appointment. [facility] [phone] Patient to follow discharge care instruction from her technical staff engineer and follow up as scheduled, patient to follow up with her primary care provider as soon as possible, patient is instructed if any symptoms worsen to go to nearest ER. Patient will follow up Dr Vaca at [facility] to further discuss evaluation and treatment. Patient Instructions: Antibiotic Form, Metoprolol (By mouth), Digoxin (By mouth), Dofetilide (By mouth), A-fib (Atrial Fibrillation) (GEN), Cardioversion (GEN), Cardiac Ablation (GEN) Patient Language: Czech Stand Alone Forms: General Discharge Information Follow-up/Referrals: Theodore Farrar MD [Primary Care Provider, Family Practice] Humberto Larose MD [Physician, Cardiology] Discharge Medications: New lidocaine [Lidoderm] 5 % Adhesive Patch,Medicated 1 patch transdermal DAILY Qty: 15 0RF digoxin 125 mcg (0.125 mg) Tablet 125 mcg PO QAM Qty: 30 0RF metoprolol succinate 50 mg Tablet Extended Release 24 Hr 50 mg PO BID Qty: 60 0RF Continued Eliquis 5 mg tablet 5 mg PO Q12H phenobarbital 30 mg tablet 30 mg PO TID Qty: 90 5RF phenytoin sodium extended [Dilantin Extended] 100 mg capsule 100 mg PO TID Qty: 300 4RF Patient Comments: PER PT CAN NOT TAKE GENERIC WILL BRING IN HOME MEDICATION cholecalciferol (vitamin D3) 25 mcg (1,000 unit) capsule 25 mcg PO DAILY aspirin 81 mg tablet,chewable 1 tablet PO DAILY Multivitamin Women 50 Plus 8 mg iron-400 mcg-50 mcg tablet 1 tablet PO DAILY furosemide 20 mg tablet 20 mg PO DAILY pantoprazole 40 mg tablet,delayed release (DR/EC) 40 mg PO DAILY sotalol 80 mg tablet 80 mg PO Q12H acetaminophen [Tylenol Extra Strength] 500 mg tablet 1,000 mg PO Q6H PRN (Reason: pain) docusate sodium 100 mg tablet 100 mg PO QHS calcium carbonate-vitamin D3 600 mg-10 mcg (400 unit) tablet 1 tablet PO Q12H mecobalamin (vitamin B12) 1,000 mcg tablet,disintegrating 1,000 mcg PO EVERY OTHER DAY Qty: 90 1RF Rx Instructions: Friday, Friday, Friday carbidopa-levodopa 25-100 mg tablet 1 tablet PO TID Qty: 300 2RF levothyroxine 75 mcg tablet See Rx Instructions .ROUTE .COMPLEX Qty: 30 1RF Dose Instruction: TAKE 1 TABLET BY MOUTH ONCE DAILY Rx Instructions: TAKE 1 TABLET BY MOUTH ONCE DAILY Held clopidogrel 75 mg tablet 75 mg PO DAILY Hold Instructions: until seen by her technical staff engineer Date of admission: 07/25/25 10:26 Primary Care Provider: Theodore Farrar Admitting Provider: Aris Bustos Attending physician on admission: Hallie Berkowitz Condition: Improved
== END 2025-07-29 13:42 | disposition home health service (06) | DRG 308 ==
LOC: ANHED 15:26 → ANHIMU 15:56
PROVIDERS: Internal Medicine Adolescent Medicine; Nurse Practitioner Adult Health; Student in an Organized Health Care Education/Training Program; Admitting Provider Internal Medicine; Emergency Provider Emergency Medicine; PCP Family Medicine; Visit Provider Family Medicine
DX: I48.20 Chronic atrial fibrillation, unspecified (principal); I50.33 Acute on chronic diastolic (congestive) heart failure; I48.92 Unspecified atrial flutter; I11.0 Hypertensive heart disease with heart failure; E55.9 Vitamin D deficiency, unspecified; E03.9 Hypothyroidism, unspecified; G20.A1 Parkinson's disease without dyskinesia, without mention of fluctuations; G80.9 Cerebral palsy, unspecified; G40.909 Epilepsy, unspecified, not intractable, without status epilepticus; M25.552 Pain in left hip; M54.16 Radiculopathy, lumbar region; M19.90 Unspecified osteoarthritis, unspecified site; M25.562 Pain in left knee; W19.XXXA Unspecified fall, initial encounter; Z96.642 Presence of left artificial hip joint; Z96.611 Presence of right artificial shoulder joint; Z79.01 Long term (current) use of anticoagulants; Z79.02 Long term (current) use of antithrombotics/antiplatelets; Z86.711 Personal history of pulmonary embolism; Z79.82 Long term (current) use of aspirin
CPT/HCPCS: 36415; 70450; 71045; 73502; 73564; 80053; 80162; 83880; 84443; 84478; 84484; 85025; 85027; 85610; 85730; 93005; 93306; 96374; 96375; 97110; 97116; 97162; 97165; 97530; 97535; 99285; A9270; G0378; J0616; J1160; J1163; J1938; J2270; J2405

== ENCOUNTER 2025-07-30 18:36 | Inpatient (IN) | payer MEDICARE, OTHER, MEDICAID, SELFPAY ==
--- OUTSIDE RECORDS SUMMARY | 2017-08-05 18:00 | XMS_ITS | Continuity of Care Document ---
Author Organization [facility] Address [address] [place] [phone] Phone Care Team Providers Care Partner Manager Name Role Phone RCM, Rendering Unavailable Unavailable Allergies, Adverse Reactions, Alerts Substance Reaction Status Criticality No Known Allergies Active No Inform ation Advance Directives Directive Yes / No Effective Date File Name No Information Encounters Encounter Description Practice Location Reason(s) For Visit Diagnoses Date Provider Providers Copied on Encounter [facility] , [address] [place] [address], [id number], tel:[phone] [facility] Location Presence of intraocular lensPunctate keratitis, bilateralOpen angle with borderline findings, low risk, bilateralOther secondary cataract, right eye 7 RCM Rendering . [address] [place] [address], [id number], [place]. tel: [phone] [facility] , [address] [place] [address], [id number], tel:[phone] [facility] Location Regular astigmatism, bilateralAge-rela may reticular degeneration of retina, bilateralMacular cyst, hole, or pseudohole, right eye 201 5 [facility] . [address] [place] [address], [id number], [place]. tel: [phone] Family History Family Member Type Diagnosis Age At Onset No Information Payers Payer name Insurance type Covered alliance party ID Authoriza tion(s) No Information Social History [...]
--- OUTSIDE RECORDS SUMMARY | 2025-06-06 08:40 | XMS_ITS ---
Author Organization [facility] Address [address] [place], [place] [address] Care Team Providers Care Ancillary Services Manager Therapy Name Role Phone ERICELINOR Mccormick Unavailable [phone] CharanTheodore Unavailable Unavailable Allergies No Known Allergies REASON FOR VISIT Patient presents for at-risk foot care . The patient has painful toenails and calluses that are causing difficulty with ambulation and shoegear. The onset is gradual Medications Medication SIG (Take, Route, Frequency, Duration) Notes Start Date End Date Status Plavix Active Aspirin 81 Active Social History Social History Additional Details Category Social Info Options Details Migrated Social History Migrated Social History History of tobacco use : , Smoking Status : Never smoked Vital Signs Height 67.00 in 06/06/2025 Weight 130 lbs 06/06/2025 BMI 20.36 kg/m2 06/06/2025 Height-cm 170.18 cm 06/06/2025 Weight-kg 58.97 kg 06/06/2025 Encounters Encounter Location Date Provider Diagnosis [facility] [address] [place], [place] [id number] 06/06/2025 ELINOR SCHULTZ Tinea unguium B35.1 ; Pain in right foot M79.671 ; Pain in left foot M79.672 ; Atherosclerosis of [place] arteries of extremities with intermittent claudication, bilateral legs I70.213 and Acquired keratosis [keratoderma] palmaris et plantaris L85.1 Assessments Encounter Date Diagnosis (ICD Code) Assessment Notes Treatment Notes Treatment Clinical Notes Section Notes 06/06/2025 Tinea unguium (ICD-10 - B35.1) Nails 1-5 Bilateral were debrided extensively with nail nippers and emery board, reducing length and girth to pink healthy tissue with any subungual debris and necrotic tissue removed 06/06/2025 Pain in right foot (ICD-10 - M79.671) 06/06/2025 Pain in left foot (ICD-10 - M79.672) 06/06/2025 Atherosclerosis of [place] arteries of extremities with intermittent claudication, bilateral legs (ICD-10 - I70.213) 06/06/2025 Acquired keratosis [keratoderma] palmaris et plantaris (ICD-10 [...] sooner if problems develop. Provider Name:ELINOR SCHULTZ, 02:20:00 PM, [address], [place], [place], [id number], History and Physical Notes * HPI (History [...] Date last seen by Dr. Farrar was May 2025., Initials IR Follow Up Visit Patient presents for follow up visit for wound check, MA: IR Examination Category Sub-Category Detail Notes Category Not [...] inversion, and eversion in bilateral lower extremities Progress Notes * PRESLEY BRISCOE LDOB:1940 (84 yo F)Acc No.[id number]:06/06/2025 Patient: PRESLEY TALAMANTES Provider: Zachery Schultz DPM :1940 A ge:84 Y S ex:Female Date:06/06/2025 Address:[address] [place] [address] [place] [address] Subjective: * Chief Complaints: * Leeanna riojas presents for at-risk foot care . The patient has painful toenails and calluses that are causing difficulty with ambulation and shoegear. The onset is gradual * HPI: H PI: General care Leeanna riojas presents to the office for at risk foot care. Patient states that their nails are thickened, elongated and painful. Patient states that it is aggravated by shoe gear. Onset is gradual. Patient denies being diabetic., Patient is taking prescription blood thinners., Date last seen by Dr. Farrar was May 2025., Initials IR. F ollow Up Visit Leeanna riojas presents for follow up visit for wound check, MA: IR. * Medical History: Parkinson's disease Osteoporosis Medical History Verified * Surgical History: No Surgical History documented. Surgical History verified. * Hospitalization/Major Diagno stic Procedure: No Hospitalization Documented. Hospitalization Verified. * Family History: F ather: PRN - Father: :: Cancer,,known absent , :: Heart Disease < 55 yrs,,known absent .?Mother: PRN - Mother: :: Cancer,,known absent , :: Arthritis,,known absent . F amily History Verified.. * Social History: M igrated Social History: M igrated Social History: History of tobacco use : , Smoking Status : Never smoked. Social History Verified. * Medications: T akingAspirin 81 Plavix Medication List reviewed and reconciled with the patientTaking Aspirin 81 Taking Plavix Medication List reviewed and reconciled with the patient * Allergies: N .K.D.A.yesAllergies Verified. Objective: * Vitals: W t: 130 lbs, [...] - M79.672 4 . A therosclerosis of [place] arteries of extremities with intermittent claudication, bilateral [...] SKIN LESIONS, 2 TO 4, Modifiers: Q8 91801 DEBRIDE NAIL, 6 OR MORE, Modifiers: 59 , Q8 * Preventive Medicine: Screenings: F all risk screening F all Risk Assessment: T wo or more falls without injury in the past year, P nathen of Care: D ocumented, T ype of fall plan of care: Balance, strength and gait training or instruction provided, H ave you had two or more falls in the past year? Y es, H ave you had any falls with injury in the past year? N o.? * Follow Up: 1 0 - 12 weeks (Reason: At-Risk Foot care, sooner if problems develop.) Billing Information: * Procedure Codes: 41890 TRIM SKIN LESIONS, 2 TO 4. Modifiers: Q8 31841 DEBRIDE NAIL, 6 OR MORE. Modifiers: 59, Q8 * Electronic signature of ELINOR SCHULTZ DPM on 07/30/2025 at 07:00 PM DIRECTOR TELECOMMUNICATIONS Sign off status: Pending * Provider: Zachery Schultz DPM Date: 0 06/06/2025 Generated for Ori zhang/Kassandra/Neil on: 1 09/29/2024 07:00 PM DIRECTOR TELECOMMUNICATIONS
--- NOTE | ~2025-07-30 | XR_ITS ---
EXAMINATION: XR shoulder RT min 2V, 07/30/2025 19:34 BRAIDING OPERATOR HISTORY: right shoulder pain, fall COMPARISON: No comparisons available. Findings: No acute fracture or malalignment. Arthroplasty intact. Soft tissues unremarkable. Impression: No acute fracture or malalignment. Reviewed, dictated and finalized at location P. DING OPERATOR Impression: No acute fracture or malalignment.
--- NOTE | ~2025-07-30 | XR_ITS ---
EXAMINATION: XR pelvis 1-2V, 07/30/2025 19:34 JAVA SYBASE DEVELOPER HISTORY: fall COMPARISON: No comparisons available. Findings: No acute fracture or malalignment. Left arthroplasty intact. Moderate right-sided degenerative is. Soft tissues unremarkable. Impression: No acute fracture or malalignment. Reviewed, dictated and finalized at location P. SYBASE DEVELOPER Impression: No acute fracture or malalignment.
--- NOTE | ~2025-07-30 | XR_ITS ---
EXAMINATION: XR wrist RT min 3V, 07/30/2025 19:34 LEAD SHIPPER HISTORY: right wrist pain, fall COMPARISON: No comparisons available. Findings: No acute fracture or malalignment. Moderate to severe degenerative changes with narrowing of the carpal joints and chondrocalcinosis.The carpal arches appear disrupted with underlying ligamentous injury suspected, outpatient CT is suggested. Soft tissue swelling is noted. Impression: No acute fracture or malalignment. Reviewed, dictated and finalized at location P. SHIPPER Impression: No acute fracture or malalignment.
--- NOTE | ~2025-07-30 | CT_ITS ---
CT HEAD NON-CONTRAST CT C-SPINE Clinical History: fall Comparison: CT brain 07/24/2025 Technique: Unenhanced axial images skull base to vertex. Coronal, sagittal reformats. Axial images thoracic inlet to skull base. Sagittal and coronal reformats. CT images acquired with automatic exposure control for dose reduction DLP: 681 mGy-cm Findings: Head: Age-related atrophy. 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 Chronic white matter microvascular ischemic changes. Sulci, ventricles: Ex vacuo dilatation left lateral ventricle. No intracerebral hemorrhage. No evidence acute territorial infarct. No mass effect, midline shift, intra-/extra-axial fluid collection. Bony calvarium intact. Visualized paranasal sinuses: Left central opacified. Left ethmoid disease. Mastoid air cells: Clear. C-spine: No acute fracture or listhesis. Vertebral bodies normal height and alignment. Moderate degenerative changes. Disc spaces maintained. Prevertebral soft tissues within normal limits. Visualized lung apices: Scarring. Visualized thyroid: Unremarkable. No enlarged cervical nodes. IMPRESSION: HEAD: 1. No acute intracranial findings. C-SPINE: 1. No acute fracture. Reviewed, dictated and finalized at location R. OPERATOR IMPRESSION: HEAD: 1. No acute intracranial findings. C-SPINE: 1. No acute fracture.
--- NOTE | ~2025-07-30 | XR_ITS ---
EXAMINATION: [id number], 07/30/2025 19:34 HELICOPTER PILOT INSTRUCTOR HISTORY: right sided rib pain, fall COMPARISON: No comparisons available. Findings: No acute fracture or malalignment. No significant degenerative changes. Soft tissues unremarkable. Mild cardiomegaly, mild pulmonary venous congestion, no pneumothorax identified. Impression: No acute fracture or malalignment. Reviewed, dictated and finalized at location P. COPTER PILOT INSTRUCTOR Impression: No acute fracture or malalignment.
[2025-07-30 18:31] VITALS: BP 157/96; PULSE 65; RESP 20; TEMP 36.5; O2SAT 100
--- OUTSIDE RECORDS SUMMARY | 2025-07-30 19:00 | XMS_ITS | Encounter Summary ---
Author Organization [facility] Address [address] [place] [address] Care Team Providers Care Chief Medical Officer Name Role Phone Bobo Lim Unavailable [phone] Andrew Vegas MD Unavailable [phone] Theodore Farrar MD Primary Care Provider [phone] Encounter Details Date Type Department Care Team (Late st Contact Info) Description 11/23/2024 Cardiology Conference [facility] Non-invasive Cardiac Diagnostic Testing [id number] [place] [address] Ramos Negro RN Social History Tobacco Use Types Packs/Day Years Used Date Smoking Tobacco: Never Smokeless Tobacco: Never Alcohol Use Standard Drinks/Week Comments No 0 (1 standard drink = 0.6 oz pur e alcohol) [facility] Utilities Answer Date Recorded In the past 12 months has [employer], gas, oil, or water [employer] threatened to shut off services in your [...] often do you attend [facility] or oriental orthodox services? 1 to 4 times per year 11/04/2023 Do you belong to any clubs o r organizations such as methodist groups, unions, fraternal or athletic groups, or [...] on file Legal Sex Female 10:51 AM [employer] Gender Identity Female 03/13/2020 12:13 PM CDT Sexual Orientation Not on file documented as of this encounter Plan of Treatment Not on file documented as of this encounter Visit Diagnoses Not on filedocumented in this encounter Care Teams Chief Medical Officer Relationship Specialty Start Date End Date Theodore Farrar MD [address] [place] [address] PCP - General Family Practice 11/06/24 Bobo Lim PA [address] [facility] [address] [place] [address] Physician [place] Machine Operator 12/02/23 Andrew Vegas MD [address] [place] [address] [facility] [address] [place] [address] Surgeon Orthopedic Surgery 11/06/23 documented as of this encounter
--- OUTSIDE RECORDS SUMMARY | 2025-07-30 19:00 | XMS_ITS | Clinical Summary ---
Author Organization [facility] [address] [facility] [address] Address [address] [place] [address] Care Team Providers Care Supervisor Money Room Name Role Phone Bobo Lim Unavailable [phone] Andrew Vegas MD Unavailable Theodore Farrar MD Primary Care Provider [phone] Allergies No known active allergies Medications PHENobarbital [...] 1 tablet (75 mcg total) by mouth maintenance mechanic engine before breakfast 4 Active sotaloL (BETAPACE) 80 [...] year. Assessment & Plan (09/07/2020 3:18 PM TELEVISION TECHNICIAN): Patient has sided interval improvement with initiation [...] PCP. Assessment & Plan (09/07/2020 3:18 PM TELEVISION TECHNICIAN): Patient's seizures remain controlled on Dilantin treatment. [...] noted. Assessment & Plan (09/07/2020 3:19 PM TELEVISION TECHNICIAN): Patient has chronic right spastic hemiparesis associated [...] (10/21/2018): Added automatically from request for surgery [id number] Hemiplegia and hemiparesis f ollowing cerebral infarction affecting right dominant side 1940 Resolved Problems Problem Noted Date Diagnosed Date Resolved Date Chronic anticoagulation 01/01/202402/21 Primary osteoarthritis of left hip 10/24/2023 01/01/2024 Encounters Date Type Department Care Team Description 07/29/2025 Orders Only [facility] Cardiology [address] [facility] [address] [place] [phone] Deion Marin MD 07/14/2025 Results Follow-Up [facility] Medicine Cardiology [address] [facility] Advanced Medicine 8th [place] [address] [place] [id number] Fabricio Vaca MD CT Heart Morphology W Contrast 06/21/2025 Telephone [facility] Medicine Cardiology [address] [facility] Advanced Medicine 8th [place] [address] [place] [phone] Fabricio Vaca MD 06/21/2025 Telephone [facility] Cardiology [address] [place] [address] Deion Marin MD pacemaker 06/16/2025 Telephone [facility] Cardiology [address] [place] [address] Deion Marin MD 06/14/2025 10:33 AM CDT - 06/14/2025 11:59 PM CDT Hospital Encounter [facility] [address] [place], [place] [id number] Fabricio Vaca MD Presence of Amulet left atrial appendage closure device; PAF (paroxysmal atrial fibrillation) Discharge Disposition: Discharge to home or self care 06/03/2025 1:30 PM CDT Office Visit [facility] Cardiology [address] [place] [address] [address] [place] [address] Tatiana Clay NP Dizziness; Edema, lower extremity; Persistent atrial fibrillation (HCC); Presence of Amulet left atrial appendage closure device; On continuous oral anticoagulation 06/02/[address] [place] [address] Deion Marin MD from Last 3 Months Immunizations Immunization Administration Dates Next Due ZOSTER Recombinant 02/11/2022 Surgical History Surgery Date Site/Laterality Comments HYSTERECTOMY APPENDECTOMY BREAST SURGERY Left Right TONSILLECTOMY JOINT REPLACEMENT Reverse total shoulder right DILATION AND CURETTAGE OF UTERUS twice TUBAL LIGATION CATARACT EXTRACTION, BILATERAL TOTAL HIP ARTHROPLASTY Left IMPLANTABLE CARDIAC DEVICE 12/09/2024 N/A Procedure: PERC MALINA CLOSE W/IMPLANT [id number]; Surgeon: Jesse Couch MD; Location: [facility]; Service: Cardiovascular; Laterality: N/A; Medical devices from [...] pur e alcohol) [facility] Utilities Answer Date Recorded In the past [...] often do you attend [facility] or rastafarian services? 1 to 4 times per year 11/04/2023 Do you belong to any clubs o r organizations such as cheondoism groups, unions, fraternal or athletic groups, or [...] on file Legal Sex Female 10:51 AM TELEVISION TECHNICIAN Gender Identity Female 03/13/2020 12:13 PM CDT [...] 02/11/2022 Depression Screening 10/24/2024 10/24/2023 Covid-19 Vaccine (4 - season) 2025 08/02/2021, 11/22/2020, 11/01/2020 Influenza Vaccine (#1) 2025 Fall Risk Assessment 01/13/2026 01/13/2025, 10/24/2023, 07/21/2020 Medical Devices Implanted Type Area Financial Services Assistant Device Identifier Shelf Expiration Date Model / Serial / Lot [employer] [id number] Delta Xtend 27mm Cementless Shoulder Standard Component Glenoid Latex Free - [id number] Implanted:Qty: 1 on 11/25/2018 by Jesse Casas MD at [facility] [employer] [id number] / / [employer] [id number] Delta Xtend 4.5mm 42mm Lock Shoulder Glenoid Screw Bone Metaglene - [id number] Implanted:Qty: 1 on 11/25/2018 by Jesse Casas MD at [facility] [employer] [id number] / / [employer] [id number] Delta Xtend 38mm Glenosphere Shoulder Eccentric Component Glenoid Latex Free - [id number] Implanted:Qty: 1 on 11/25/2018 by Jesse Casas MD at [facility] [employer] [id number] / / [employer] [id number] Delta Xtend 4.5mm 36mm Lock Shoulder Glenoid Screw Bone Metaglene - [id number] Implanted:Qty: 1 on 11/25/2018 by Jesse Casas MD at [facility] [employer] [id number] / / [employer] [id number] Delta Xtend Cementless Modular Shoulder Right Epiphysis 155d 1 Latex Free - [id number] Implanted:Qty: 1 on 11/25/2018 by Jesse Casas MD at [facility] [employer] [id number] / / [employer] [id number] Global Unite 8mm 107mm Modular Shoulder Standard Stem Humeral - [id number] Implanted:Qty: 1 on 11/25/2018 by Jesse Casas MD at [facility] [employer] [id number] / / [employer] [id number] Delta Xtend 38mm Shoulder +6mm Standard Cup Humeral Polyethylene Latex Free - [id number] Implanted:Qty: 1 on 11/25/2018 by Jesse Casas MD at [facility] [employer] [id number] / / [employer] Apison 56mm 36mm Hip Neutral Liner Acetabular Altrx Sterile Latex Free [id number] - [id number] Implanted:Qty: 1 on 11/03/2023 by Andrew Vegas MD at [facility] Left: Hip [employer] 07/22/2028 [id number] / / [id number] [employer] Apison 6.5mm 35mm Acetabular Cancellous Screw Bone Sterile 1217-35-500 - [id number] Implanted:Qty: 1 on 11/03/2023 by Andrew Vegas MD at [facility] Left: Hip [employer] 07/22/2033 1217-35-500 / / [id number] [employer] Actis Collar Hip 7 High Offset Stem Femoral [id number] - [id number] Implanted:Qty: 1 on 11/03/2023 by Andrew Vegas MD at [facility] Left: Hip [employer] 12/20/2032 [id number] / / [id number] [employer] Articul/Jamel 36mm Cementless Hip +1.5mm 12/14 Taper Head Femoral Latex Free [id number] - [id number] Implanted:Qty: 1 on 11/03/2023 by Andrew Vegas MD at [facility] Left: Hip [employer] 08/21/2028 [id number] / / [id number] [employer] Apison 56mm Sector Hip Shell Acetabular Gription Sterile Latex Free [id number] - [id number] Implanted:Qty: 1 on 11/03/2023 by Andrew Vegas MD at [facility] Left: Hip [employer] 03/21/2033 [id number] / / [id number] Arm[employer] V[employer] System Closure Repair Femoral Artery Suture Mediated Perclose Prostyle 14709-33 - [id number] Implanted:Qty: 1 on 12/09/2024 by Jesse Couch MD at [facility] Vascular 10/22/2026 [id number] / / [id number] [employer] Vascular System Closure Repair Femoral Artery Suture Mediated Perclose Prostyle 73115-90 - [id number] Implanted:Qty: 1 on 12/09/2024 by Jesse Couch MD at [facility] Vascular 09/21/2026 [id number] / / [id number] [employer] Vascular Occluder Cvasc Malina Flexible Braided Amplatzer Amulet 25mm Nitinol 9-Dtf1-000-025 - [id number] Implanted:Qty: 1 on 12/09/2024 by Jesse Couch MD at [facility] 06/21/2029 9-ACP2-01 0-0 25 / / [id number] Explanted Type Area Financial Services Assistant Device Identifier Shelf Expiration Date Model / Serial / Lot [employer] [id number] Steinmann 3/32in 9in 2 Trocar Pin Fixation Nonsterile - [id number] Explanted:Qty: 1 on 11/25/2018 at [facility] [employer] [id number] / / Procedures Procedure Name Priority Date/Time Associated Diagnosis Comments CARDIOLOGY DOCUMENT SCAN Routine 07/27/2025 9:[address] HEART MORPHOLOGY W CONTRAST Schedule Routine, Read Routine (OP Routine) 06/14/2025 12:07 PM CDT Presence of Amulet left atrial appendage closure device PAF (paroxysmal atrial fibrillation) from Last 3 Months Results * Cardiology Document Scan (07/27/2025 9:48 AM TELEVISION TECHNICIAN) Anatomical Region Laterality Modality Other us Deion Marin MD CV CARDIAC SERVICES [facility] Final Result * CT Heart Morphology W Contrast (06/14/2025 [...] unremarkable. Procedure Note Leonardo Escobar MD - 09/23/2025 EXAMINATION: CT HEART MORPHOLOGY W CONTRAST HISTORY: [...] Last 3 Months Insurance MEDICARE [employer] [place] MEDICARE [employer] [place] [address] MEDICARE IDID MEDICARE Advance Directives For more information, please contact: [phone] Documents on File Type Date Recorded Patient Furnace Converter Expl anation ADVANCE DIRECTIVE 12/01/2018 4:58 AM POWER OF FILAMENT WOUND PARTS FABRICATOR-MEDICAL * Full Code (Latest Code Status on File) Date Activated Date Inactivated Comments 11/03/2023 12:28 PM 11/07/2023 5:32 PM * Full Code Date Activated Date Inactivated Comments 11/25/2018 2:08 PM 11/28/2018 7:12 PM Care Teams Supervisor Money Room Relationship Specialty Start Date End Date Theodore Farrar MD [address] [place] [address] PCP - General Family Practice 11/06/24 Bobo Lim PA [address] [facility] [address] [place] [address] Physician Computer Programming Supervisor 12/02/23 Andrew Vegas MD [address] [place] [address] [address] [place] [address] Surgeon Orthopedic Surgery 11/06/23
--- OUTSIDE RECORDS SUMMARY | 2025-07-30 19:00 | XMS_ITS | Encounter Summary ---
Author Organization [facility] Healthcare Address [address] [place] [address] Care Team Providers Care Rescue Worker Name Role Phone Bobo Lim Unavailable [phone] Andrew Vegas MD Unavailable [phone] Theodore Farrar MD Primary Care Provider [phone] Encounter Details Date Type Department Care Team (Late st Contact Info) Description 12/16/2024 [facility] Post Discharge Follow up phone call [facility] [address] [place] [address] Yolanda Gaona Social History Tobacco Use Types Packs/Day Years Used Date Smoking Tobacco: Never Smokeless Tobacco: Never Alcohol Use Standard Drinks/Week Comments No 0 (1 standard drink = 0.6 oz pur e alcohol) [facility] Utilities Answer Date Recorded In the past 12 months has [employer], gas, oil, or water [employer] threatened to shut off services in your [...] week 11/04/2023 How often do you attend [facility] or scientology services? 1 to 4 times [...] on file Legal Sex Female 10:51 AM ROCK WOOL INSULATOR Gender Identity Female 03/13/2020 12:13 PM CDT Sexual Orientation Not on file documented as of this encounter Plan of Treatment Not on file documented as of this encounter Visit Diagnoses Not on filedocumented in this encounter Care Teams Rescue Worker Relationship Specialty Start Date End Date Theodore Farrar MD [address] [place] [address] PCP - General Family Practice 11/06/24 Bobo Lim PA [address] [facility] [address] [place] [address] Physician Orderly 12/02/23 Andrew Vegas MD [address] [place] [address] [facility] [address] [place] [address] Surgeon Orthopedic Surgery 11/06/23 documented as of this encounter
--- OUTSIDE RECORDS SUMMARY | 2025-07-30 19:01 | XMS_ITS | Encounter Summary ---
Author Organization [facility] Healthcare Address [address] [place] [address] Care Team Providers Care Probation Manager Name Role Phone Bobo Lim Unavailable [phone] Andrew Vegas MD Unavailable Theodore Farrar MD Primary Care Provider [phone] Encounter Details Date Type Department Care Team (Late st Contact Info) Description 07/29/2025 Orders Only [facility] Medical Group Cardiology [address] [place] [address] Deion Marin MD [address] [facility] [address] [place] [address] Social History Tobacco Use Types Packs/Day Years Used Date Smoking Tobacco: Never Smokeless Tobacco: Never Alcohol Use Standard Drinks/Week Comments No 0 (1 standard drink = 0.6 oz pur e alcohol) [facility] Utilities Answer Date Recorded In the past 12 months has [employer] electric, gas, oil, or water company threatened [...] often do you attend chur ch or cheondoism services? 1 to 4 times per year 11/04/2023 Do you belong to any clubs o r organizations such as faith groups, unions, fraternal or athletic groups, or [...] on file Legal Sex Female 10:51 AM ANATOMY AND PHYSIOLOGY INSTRUCTOR Gender Identity Female 03/13/2020 12:13 PM CDT Sexual Orientation Not on file documented as of this encounter Plan of Treatment Not on file documented as of this encounter Procedures Procedure Name Priority Date/Time Associated Diagnosis Comments CARDIOLOGY DOCUMENT SCAN Routine 07/27/2025 9:48 AM ANATOMY AND PHYSIOLOGY INSTRUCTOR documented in this encounter Results * Cardiology Document Scan (07/27/2025 9:48 AM ANATOMY AND PHYSIOLOGY INSTRUCTOR) Anatomical Region Laterality Modality Other us Deion Marin MD CV CARDIAC SERVICES [facility] Final Result documented in this encounter Visit Diagnoses Not on filedocumented in this encounter Care Teams Probation Manager Relationship Specialty Start Date End Date Theodore Farrar MD [address] [place] [address] PCP - General Family Practice 11/06/24 Bobo Lim PA [address] [place], [place] [address] Physician Document Control Clerk 12/02/23 Andrew Vegas MD [address] [place] [address] [facility] [address] [place] [address] Surgeon Orthopedic Surgery 11/06/23 documented as of this encounter
--- OUTSIDE RECORDS SUMMARY | 2025-07-30 19:01 | XMS_ITS | Encounter Summary ---
Author Organization [facility] Address [address] [place] [address] Phone Care Team Providers Care Director Data Management Name Role Phone Bobo Lim Unavailable [phone] Andrew Vegas MD Unavailable [phone] Theodore Farrar MD Primary Care Provider [phone] Encounter Details Date Type Department Care Team (Late st Contact Info) Description 07/14/2025 Results Follow-Up [facility] Medicine Cardiology [address] [facility] Advanced Medicine 8th [place] [address] [place] [address] Fabricio Vaca MD [address] [facility] [address] [place] [address] CT Heart Morphology W Contrast Social History Tobacco Use Types Packs/Day Years Used Date Smoking Tobacco: Never Smokeless Tobacco: Never Alcohol Use Standard Drinks/Week Comments No 0 (1 standard drink = 0.6 oz pur e alcohol) [facility] Utilities Answer Date Recorded In the [...] on file Legal Sex Female 10:51 AM ELECTROMATIC TYPIST Gender Identity Female 03/13/2020 12:13 PM CDT [...] make additional decisions moving forward regarding the ZIM[employer]WE[employer] device. Those decisions could involve leaving it in place with continued DOAC versus consideration of removal either percutaneously or surgically plus-minus a clip +/-Maze surgery [facility] documented in this encounter Plan of Treatment Not on file documented as of this encounter Visit Diagnoses Not on filedocumented in this encounter Care Teams Director Data Management Relationship Specialty Start Date End Date Theodore Farrar MD [address] [place] [address] PCP - General Family Practice 11/06/24 Bobo Lim PA [address] [place] [address] Physician Curer Acid Drum 12/02/23 Andrew Vegas MD [address] [facility] [address] [place] [address] Surgeon Orthopedic Surgery 11/06/23 documented as of this encounter
--- OUTSIDE RECORDS SUMMARY | 2025-07-30 19:01 | XMS_ITS | Encounter Summary ---
Author Organization [facility] Healthcare Address [address] [place] [address] Care Team Providers Care Control Systems Developer Name Role Phone Bobo Lim Unavailable [phone] Andrew Vegas MD Unavailable Theodore Farrar MD Primary Care Provider [phone] Encounter Details Date Type Department Care Team (Late st Contact Info) Description 12/27/2024 Orders Only [facility] Information Management [address] [place] [address] Scanning, Provider Social History Tobacco Use Types Packs/Day Years Used Date Smoking Tobacco: Never Smokeless Tobacco: Never Alcohol Use Standard Drinks/Week Comments No 0 (1 standard drink = 0.6 oz pur e alcohol) [facility] Utilities Answer Date Recorded In the past 12 months has [employer], gas, oil, or water [employer] threatened to shut off services in your [...] any clubs o r organizations such as judaism groups, unions, fraternal or athletic groups, or [...] place to sleep or slept in a fpc (including now)? No 11/04/2023 Personal Safety Answer Date Recorded Have you ever been in or are you currently in a harmful physical or emotional relationship or is someone making you feel afraid or unsafe? Denies 12/09/2024 Comments No Sex and Gender Information Value Date Recorded Sex Assigned at Not on file Legal Sex Female 10:51 AM CHIEF HUMAN RESOURCES OFFICER Gender Identity Female 03/13/2020 12:13 PM [...] on filedocumented in this encounter Care Teams Control Systems Developer Relationship Specialty Start Date End Date Theodore Farrar MD [address] [place] [address] PCP - General Family Practice 11/06/24 Bobo Lim PA [address] [facility] [address] [place] [address] Physician Engraver Tire Mold 12/02/23 Andrew Vegas MD [address] [place] [address] [facility] [address] [place] [address] Surgeon Orthopedic Surgery 11/06/23 documented as of this encounter
--- OUTSIDE RECORDS SUMMARY | 2025-07-30 19:01 | XMS_ITS | Encounter Summary ---
Author Organization [facility] Healthcare Address [address] [place] [address] Care Team Providers Care Adjunct Writing Instructor Name Role Phone Bobo Lim Unavailable [phone] nAdrew Vegas MD Unavailable [phone] Odell Kinney DO Primary Care Provider [phone] Theodore Farrar MD Primary Care Provider [phone] Encounter Details Date Type Department Care Team (Late st Contact Info) Description 10/09/2024 Orders Only [facility] Information Management [address] [place] [address] Scanning, Provider Social History Tobacco Use Types Packs/Day Years Used Date Smoking Tobacco: Never Smokeless Tobacco: Never Alcohol Use Standard Drinks/Week Comments No 0 (1 standard drink = 0.6 oz pur e alcohol) [facility] Utilities Answer Date Recorded In the past 12 months has [employer] electric, gas, oil, or water company threatened [...] week 11/04/2023 How often do you attend [facility] or gnosticism services? 1 to 4 times per year 11/04/2023 Do you belong to any clubs o r organizations such as holiness groups, unions, fraternal or athletic groups, or [...] place to sleep or slept in a care home (including now)? No 11/04/2023 Personal Safety Answer Date Recorded Have you ever been in or are you currently in a harmful physical or emotional relationship or is someone making you feel afraid or unsafe? Denies 11/03/2023 Comments No Sex and Gender Information Value Date Recorded Sex Assigned at Not on file Legal Sex Female 10:51 AM HTML WEB DEVELOPER Gender Identity Female 03/13/2020 12:13 PM [...] on filedocumented in this encounter Care Teams Adjunct Writing Instructor Relationship Specialty Start Date End Date Odell Kinney DO [address] [facility] [address] [place] [address] PCP - General Internal Medicine 04/15/24 11/05/24 Theodore Farrar MD [address] [place] [address] PCP - General Family Practice 11/06/24 Bobo Lim PA [address] [place] [address] [place] [address] Physician Cnc Technician 12/02/23 Andrew Vegas MD [address] [place] [address] [address] [place] [address] Surgeon Orthopedic Surgery 11/06/23 documented as of this encounter
--- OUTSIDE RECORDS SUMMARY | 2025-07-30 19:01 | XMS_ITS | Patient Health Record ---
Author Organization [facility] Address [address] [place], [place] [id number] Care Team Providers Care Brick Pointer Name Role Phone CARI ELINOR Unavailable [phone] CharanTheodore Unavailable Unavailable ELINOR CLEVELAND Unavailable [phone] Allergies No Known Allergies Reason For Referral [...] Location Date Provider Diagnosis [facility] [address] [place], [place] [id number] 06/06/2025 ELINOR SCHULTZ Tinea unguium B35.1 ; Pain in right foot M79.671 ; Pain in left foot M79.672 ; Atherosclerosis of [place]om[place] arteries of extremities with intermittent claudication, bilateral legs I70.213 and Acquired keratosis [keratoderma] palmaris et plantaris L85.1 [facility] [address] [place], [place] [id number] 09/16/2024 ELINOR CLEVELAND Onychomycosis B35.1 ; Pain in right toe(s) M79.674 ; Pain in left toe(s) M79.675 and Unspecified atherosclerosis of diomede arteries of extremities, bilateral legs I70.203 [facility] [address] [place] [id number] 11/29/2024 ELINOR SNOOK Tinea unguium B35.1 ; Pain in right foot M79.671 ; Pain in left foot M79.672 ; Atherosclerosis of diomede arteries of extremities with intermittent claudication, bilateral legs I70.213 and Acquired keratosis [keratoderma] palmaris et plantaris L85.1 [facility] [address] [place] [id number] 01/31/2025 ELINOR SNOOK Tinea unguium B35.1 ; Pain in right foot M79.671 ; Pain in left foot M79.672 ; Atherosclerosis of diomede arteries of extremities with intermittent claudication, bilateral legs I70.213 and Acquired keratosis [keratoderma] palmaris et plantaris L85.1 [facility] [address] [place] [id number] 04/04/2025 ELINOR SNOOK Tinea unguium B35.1 ; Pain in right foot M79.671 ; Pain in left foot M79.672 ; Atherosclerosis of diomede arteries of extremities with intermittent claudication, bilateral legs I70.213 and Acquired keratosis [keratoderma] palmaris et plantaris L85.1 Assessments Encounter Date Diagnosis (ICD Code) Assessment Notes Treatment Notes Treatment Clinical Notes Section Notes 09/16/2024 Onychomycosis (ICD-10 - B35.1) 11/29/2024 Tinea [...] toe(s) (ICD-10 - M79.675) 11/29/2024 Atherosclerosis of diomede arteries of extremities with intermittent claudication, bilateral legs (ICD-10 - I70.213) 01/31/2025 Atherosclerosis of diomede arteries of extremities with intermittent claudication, bilateral legs (ICD-10 - I70.213) 04/04/2025 Atherosclerosis of diomede arteries of extremities with intermittent claudication, bilateral legs (ICD-10 - I70.213) 06/06/2025 Atherosclerosis of diomede arteries of extremities with intermittent claudication, bilateral [...] a #15 blade 09/16/2024 Unspecified atherosclerosis of diomede arteries of extremities, bilateral legs (ICD-10 - I70.203) 09/16/2024 Other Nails 1-5 Bilateral were debrided extensively with nail nippers and emery board, reducing length and girth to pink healthy tissue with any subungual debris and necrotic tissue removed Plan Of Treatment Next Appt Details Provider Name:ELINOR ANTOINE, 02:20:00 PM, [address], [place], [place], [id number], Insurance Providers Payer Name Payer Address Payer Phone Subscriber Number Group Number Insured Name Patient Relationship to Insured Coverage Start Date Coverage End Date Medicare Part B [facility] [address] [place] [phone] [id number] PRESLEY BRISCOE Self - patient is the insured [employer] [address] [place] [phone] [id number] PRESLEY BRISCOE Self - patient is the insured Medical (General) History Medical History History ICD Code Parkinson's disease osteoporosis
--- NOTE | 2025-07-30 19:08 | ECG_ITS ---
Test Date: 2025-07-30 20:58:18 Measurements Intervals [place] Rate: 114 P: 0 GA: 0 QRS: 2 QRSD: 78 T: -68 QT: 358 QTc: 494 Interpretive Statements ATRIAL FIBRILLATION WITH RAPID VENTRICULAR RESPONSE WITH ABERRANT CONDUCTION OR VENTRICULAR PREMATURE COMPLEXES ST DEVIATION AND MODERATE T-WAVE ABNORMALITY, CONSIDER LATERAL ISCHEMIA [-0.1+ mV T-WAVE IN I/aVL/V5/V6] ST DEVIATION AND MODERATE T-WAVE ABNORMALITY, CONSIDER INFERIOR ISCHEMIA [-0.1+ mV T-WAVE IN II/aVF] ABNORMAL ECG Compared to ECG 07/24/2025 11:23:27 Ventricular premature complex(es) now present Aberrant conduction of supraventricular beat(s) now present Possible ischemia now present T-wave abnormality still present Electronically Signed On 07-31-2025 08:42:41 MOBILE HOME LOT UTILITY WORKER by Deion Marin M.D.
--- NOTE | 2025-07-30 19:20 | ED.FALL ---
HPI - Fall General Chief Complaint: Fall <Kellee Yarbrough PA-C - Last Filed: 07/31/25 00:27> Stated Complaint: GLF and on floor since 1330 <Kellee Yarbrough PA-C - Last Filed: 07/31/25 00:27> Time Seen by Provider: 07/30/25 18:44 <Kellee Yarbrough PA-C - Last Filed: 07/31/25 00:27> Source: patient <RYAN Valdez Last Filed: 07/31/25 00:27> Mode of arrival: EMS <RYAN Valdez Last Filed: 07/31/25 00:27> Limitations: no limitations <RYAN Valdez Last Filed: 07/31/25 00:27> History of Present Illness HPI Narrative: This is a 84 year old female that presents to the ER for a fall today. Reports she fell about 5 hours ago. Was not able to get up off the floor. Finally found her phone and called 911. Reports right sided rib pain, right shoulder pain. Unsure if she hit her head. She did not lose consciousness. She is on anticoagulation. <Kellee Yarbrough PA-C - Last Filed: 07/31/25 00:27> Related Data Home Medications: Home Medications ?Medication ?Instructions ?Recorded ?Confirmed ?Last Taken ?Type cholecalciferol (vitamin D3) 25 25 mcg PO DAILY 12/27/24 07/24/25 12/27/24 06:15 History mcg (1,000 unit) capsule 25 mcg clopidogrel 75 mg tablet 75 mg PO DAILY 12/27/24 07/24/25 12/27/24 06:00 History Held on 07/29/25. 75 mg Instructions: until seen by her integrated pest management technician apixaban 5 mg tablet (Eliquis) 5 mg PO Q12H 05/10/25 07/24/25 Unknown History acetaminophen 500 mg tablet 1,000 mg PO Q6H PRN pain 07/24/25 07/24/25 Unknown History (Tylenol Extra Strength) aspirin 81 mg chewable tablet 1 tablet PO DAILY 07/24/25 07/24/25 Unknown History calcium 600 mg (as 1 tablet PO Q12H 07/24/25 07/24/25 Unknown History carbonate)-vitamin D3 10 mcg (400 unit) tablet docusate sodium 100 mg tablet 100 mg PO QHS 07/24/25 07/24/25 Unknown History furosemide 20 mg tablet 20 mg PO DAILY 07/24/25 07/24/25 Unknown History kbpsgwup-htek-tgzt 8 mg-folic 400 1 tablet PO DAILY 07/24/25 07/24/25 Unknown History mcg-K 50 mcg-lutein 300 mcg tablet (Multivitamin Women 50 Plus) pantoprazole 40 mg tablet,delayed 40 mg PO DAILY 07/24/25 07/24/25 Unknown History release sotalol 80 mg tablet 80 mg PO Q12H 07/24/25 07/24/25 Unknown History <Kellee Yarbrough PA-C - Last Filed: 07/31/25 00:27> Allergies/Adverse Reactions: Allergies Allergy/AdvReac Type Severity Reaction Status Date / Time No Known Allergies Allergy Verified 07/24/25 16:54 <Kellee Yarbrough PA-C - Last Filed: 07/31/25 00:27> Review of Systems Review of Systems: All systems reviewed & are unremarkable except as noted in HPI and below <Kellee Yarbrough PA-C - Last Filed: 07/31/25 00:27> [facility] Past Medical History Medical History: Medical History Parkinsons disease Chronic anticoagulation Arthritis Paroxysmal atrial fibrillation history of cardioversion in 12/2023 Pulmonary embolism (11/2023) Constipation Wears glasses Lumbar radiculopathy Vitamin D deficiency Low vitamin D level Hypertension Vitamin D deficiency Hypothyroidism Cerebral palsy Patient denies this diagnosis but states she has had right-sided weakness and spasticity since . 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 History of hysterectomy History of breast biopsy bilateral, with benign pathology History of appendectomy History of tonsillectomy <Kellee Yarbrough PA-C - Last Filed: 07/31/25 00:27> Family History Family History: Family History Father Family history of cardiovascular disease Malignant neoplasm of prostate Patient's father is , Onset Age: 80 Mother Heart disease Cancer Patient's mother is Other Arthritis Family history of genitourinary disease <Kellee Yarbrough PA-C - Last Filed: 07/31/25 00:27> Social History Social History: Social History Social History: Surrogate medical decision maker: Nighat Francis. Code status: Full code. Second hand tobacco smoke exposure: No Alcohol intake: never Substance use: never Substance use type: does not use Do You Feel Safe in your Home?: Yes Lack of Transportation: No Lack of Food: Never True Current Housing: I Have Housing Concerned About Future Housing: No Difficulty Paying Gas/Electric Bills: No Difficulty Paying for Meds: No Currently Unemployed: No Education: High School Diploma/GED Difficulty w/ Childcare or Family Care: Decline to Answer Living arrangements: assisted living Additional living arrangements comments: . Occupation/Education: retired Gender identity (if verbalized by the patient): Female Spiritual care concerns: No <Kellee Yarbrough PA-C - Last Filed: 07/31/25 00:27> Exam Narrative: GENERAL: Elderly, well-nourished, and in no acute distress. HEAD: Normocephalic, atraumatic. EYES: PERRLA and EOMI. ENT: Nares clear, no rhinorrhea or epistaxis. Mucous membranes moist. Oropharynx without tonsillar hypertrophy exudate or other lesions. Bilateral TMs pearly somers non-bulging NECK: Supple. No adenopathy or masses. CHEST: Clear to auscultation. No respiratory distress. No wheezes rales or rhonchi HEART: Regular rate and rhythm. No murmur heard. Normal peripheral pulses. ABDOMEN: Soft, nontender, nondistended, normal active bowel sounds. BACK: No midline spinal tenderness EXTREMITIES: Normal range of motion, except decreased active ROM in the right shoulder. Mild edema and bruising about the right wrist. SKIN: Warm, dry, no rash. NEURO: No focal deficits. Alert and oriented x3. PSYCH: Normal mood and affect <Kellee Yarbrough PA-C - Last Filed: 07/31/25 00:27> Course Vital Signs Vital signs: Vital Signs Temperature 97.7 F 07/30/25 18:31 Pulse Rate 65 07/30/25 18:31 Respiratory Rate 20 07/30/25 18:31 Blood Pressure 157/96 H 07/30/25 18:31 Pulse Oximetry 100 07/30/25 18:31 Oxygen Delivery Room Air 07/30/25 18:31 Temperature 97.7 F 07/30/25 18:31 Pulse Rate 110 H 07/31/25 00:17 Respiratory Rate 16 07/31/25 00:17 Blood Pressure 138/98 H 07/31/25 00:17 Pulse Oximetry 99 07/31/25 00:17 Oxygen Delivery Room Air 07/30/25 18:31 <Kellee Yarbrough PA-C - Last Filed: 07/31/25 00:27> Vital Signs Temperature 97.7 F 07/30/25 18:31 Pulse Rate 65 07/30/25 18:31 Respiratory Rate 20 07/30/25 18:31 Blood Pressure 157/96 H 07/30/25 18:31 Pulse Oximetry 100 07/30/25 18:31 Oxygen Delivery Room Air 07/30/25 18:31 Temperature 97.7 F 07/30/25 18:31 Pulse Rate 110 H 07/31/25 00:17 Respiratory Rate 16 07/31/25 00:17 Blood Pressure 138/98 H 07/31/25 00:17 Pulse Oximetry 99 07/31/25 00:17 Oxygen Delivery Room Air 07/30/25 18:31 <Brandt Jason DO - Last Filed: 07/31/25 00:38> MDM - Fall MDM Narrative Medical decision making narrative: Patient presents to the emergency department after a fall today at her assisted living facility. Patient had laid on the ground for about 5 hours. She is afebrile and nontoxic appearing. She is neurologically intact at baseline. Noted to be atrial fibrillation. Rate was intermittently elevated, this did respond to her home metoprolol and sotalol. Cbc metabolic panel without concerning findings. Urine with evidence of infection. This is sent for culture. Patient started on IV antibiotics. CT brain, cervical spine without acute findings. Right wrist and shoulder x-rays without acute osseous abnormalities. Right rib/chest x-ray without acute abnormalities. Pelvic x-ray without acute findings. Patient will be admitted to hospitalist service for further management <Kellee Yarbrough PA-C - Last Filed: 07/31/25 00:27> Patient presents to the emergency department after a fall today at her assisted living facility. Patient had laid on the ground for about 5 hours. She is afebrile and nontoxic appearing. She is neurologically intact at baseline. Noted to be atrial fibrillation. Rate was intermittently elevated, this did respond to her home metoprolol and sotalol. Cbc metabolic panel without concerning findings. Urine with evidence of infection. This is sent for culture. Patient started on IV antibiotics. CT brain, cervical spine without acute findings. Right wrist and shoulder x-rays without acute osseous abnormalities. Right rib/chest x-ray without acute abnormalities. Pelvic x-ray without acute findings. Patient will be admitted to hospitalist service for further management This visit was performed by both a physician and an Advanced Practice Provider. I performed all aspects of the Medical Decision Making as documented. <Brandt Jason DO - Last Filed: 07/31/25 00:38> Differential Diagnosis Differential diagnosis: Likely syncope, concussion without loss of consciousness and other (uti, rib fracture, AFib with RVR, electrolyte derangement, dehydration, subdural hemorrhage, cervical spine fracture) <Kellee Yarbrough PA-C - Last Filed: 07/31/25 00:27> Lab Data Attestation: I reviewed the patient's lab results. <Kellee Yarbrough PA-C - Last Filed: 07/31/25 00:27> Result diagrams: 07/30/25 19:59 07/30/25 19:59 <Kellee Yarbrough PA-C - Last Filed: 07/31/25 00:27> Labs: Lab Results 07/30/25 07/30/25 Range/Units 19:59 20:36 WBC 8.2 (4.5-10.0) K/mm3 RBC 3.87 L (4.2-5.4) M/mm3 Hgb 12.9 (12.0-15.0) g/dL Hct 38.3 (37.0-47.0) % MCV 99.0 (80-100) fl MCH 33.3 (26-34) pg MCHC 33.7 (32-36) g/dl RDW 14.5 (11.5-14.5) % Plt Count 291 (150-375) k/mm3 MPV 9.0 (7.4-10.4) fl Immature Gran % (Auto) 0.5 (0-0.5) % Neut % (Auto) 73.9 H (45.5-73.1) % Lymph % (Auto) 10.9 L (18.3-44.2) % [place] % (Auto) 9.8 H (2.6-8.5) % Eos % (Auto) 4.2 (0-4.4) % Baso % (Auto) 0.7 (0.2-1.2) % Lymph # (Auto) 0.89 L (0.9-3.2) K/mm3 [place] # (Auto) 0.8 H (0.1-0.6) K/mm3 Eos # (Auto) 0.3 (0-0.3) K/mm3 Baso # (Auto) 0.1 (0.0-0.1) K/mm3 Abs Immat Gran (auto) 0.04 H (0.00-0.031) K/mm3 Absolute Neuts (auto) 6.0 (1.3-6.7) K/mm3 Absolute Nucleated RBC 0.000 (0.0-0.012) K/mm3 Nucleated RBC % 0.0 (0.0-0.2) % Sodium 138 (137-145) mmol/L Potassium 3.9 (3.4-5.0) mmol/L Chloride 104 (98-107) mmol/L Carbon Dioxide 27 (22-30) mmol/L Anion Gap 7 (4-12) mmol/L BUN 26 H (7-17) mg/dL Creatinine 0.81 (0.7-1.0) mg/dL Estim Creat Clear Calc 39 ml/min Estimated GFR > 60 (59 - ) Glucose 124 H (65-110) mg/dL Calcium 8.9 (8.4-10.2) mg/dL Magnesium 2.0 (1.6-2.3) mg/dL Total Bilirubin 0.4 (0.2-1.3) mg/dL AST 48 H (14-36) U/L ALT 21 (6-35) U/L Alkaline Phosphatase 81 (38-126) U/L Total Creatine Kinase 79 (30-135) U/L Total Protein 8.1 (6.3-8.2) g/dL Albumin 4.1 (3.5-5.1) g/dL Urine Color Yellow (Yellow) Urine Appearance Cloudy H (Clear) Urine pH 7.5 (5.0-9.0) Ur Specific [place] 1.016 (1.001-1.035) Urine Protein Trace (Negative) mg/dL Urine Glucose (UA) Negative (Negative) mg/dL Urine Ketones Negative (Negative) mg/dL Ur Blood (Man) Non-hemolyzed trace H (Negative) Urine Nitrate Positive H (Negative) Urine Bilirubin Negative (Negative) Urine Urobilinogen 0.2 (<2.0) mg/dL Leukocyte Esterase Rfl Trace H (Negative) SOLEDAD/UL Urine RBC 6-10 H (0-2) /hpf Urine WBC 6-10 H (0-3) /hpf Ur Squamous Epith Cells None seen (Few) /hpf Urine Bacteria 4+ /hpf Urine Casts 0-2 <Kellee Yarbrough PA-C - Last Filed: 07/31/25 00:27> Lab Results 07/30/25 07/30/25 Range/Units 19:59 20:36 WBC 8.2 (4.5-10.0) K/mm3 RBC 3.87 L (4.2-5.4) M/mm3 Hgb 12.9 (12.0-15.0) g/dL Hct 38.3 (37.0-47.0) % MCV 99.0 (80-100) fl MCH 33.3 (26-34) pg MCHC 33.7 (32-36) g/dl RDW 14.5 (11.5-14.5) % Plt Count 291 (150-375) k/mm3 MPV 9.0 (7.4-10.4) fl Immature Gran % (Auto) 0.5 (0-0.5) % Neut % (Auto) 73.9 H (45.5-73.1) % Lymph % (Auto) 10.9 L (18.3-44.2) % [place] % (Auto) 9.8 H (2.6-8.5) % Eos % (Auto) 4.2 (0-4.4) % Baso % (Auto) 0.7 (0.2-1.2) % Lymph # (Auto) 0.89 L (0.9-3.2) K/mm3 [place] # (Auto) 0.8 H (0.1-0.6) K/mm3 Eos # (Auto) 0.3 (0-0.3) K/mm3 Baso # (Auto) 0.1 (0.0-0.1) K/mm3 Abs Immat Gran (auto) 0.04 H (0.00-0.031) K/mm3 Absolute Neuts (auto) 6.0 (1.3-6.7) K/mm3 Absolute Nucleated RBC 0.000 (0.0-0.012) K/mm3 Nucleated RBC % 0.0 (0.0-0.2) % Sodium 138 (137-145) mmol/L Potassium 3.9 (3.4-5.0) mmol/L Chloride 104 (98-107) mmol/L Carbon Dioxide 27 (22-30) mmol/L Anion Gap 7 (4-12) mmol/L BUN 26 H (7-17) mg/dL Creatinine 0.81 (0.7-1.0) mg/dL Estim Creat Clear Calc 39 ml/min Estimated GFR > 60 (59 - ) Glucose 124 H (65-110) mg/dL Calcium 8.9 (8.4-10.2) mg/dL Magnesium 2.0 (1.6-2.3) mg/dL Total Bilirubin 0.4 (0.2-1.3) mg/dL AST 48 H (14-36) U/L ALT 21 (6-35) U/L Alkaline Phosphatase 81 (38-126) U/L Total Creatine Kinase 79 (30-135) U/L Total Protein 8.1 (6.3-8.2) g/dL Albumin 4.1 (3.5-5.1) g/dL Urine Color Yellow (Yellow) Urine Appearance Cloudy H (Clear) Urine pH 7.5 (5.0-9.0) Ur Specific [place] 1.016 (1.001-1.035) Urine Protein Trace (Negative) mg/dL Urine Glucose (UA) Negative (Negative) mg/dL Urine Ketones Negative (Negative) mg/dL Ur Blood (Man) Non-hemolyzed trace H (Negative) Urine Nitrate Positive H (Negative) Urine Bilirubin Negative (Negative) Urine Urobilinogen 0.2 (<2.0) mg/dL Leukocyte Esterase Rfl Trace H (Negative) SOLEDAD/UL Urine RBC 6-10 H (0-2) /hpf Urine WBC 6-10 H (0-3) /hpf Ur Squamous Epith Cells None seen (Few) /hpf Urine Bacteria 4+ /hpf Urine Casts 0-2 <Brandt Jason DO - Last Filed: 07/31/25 00:38> Imaging Data Radiologist's impression: CT brain: No acute intracranial abnormality CT cervical spine: No acute C spine findings ITS Impressions Wrist X-Ray 07/30/25 19:46 Impression: No acute fracture or malalignment. Pelvis X-Ray 07/30/25 19:47 Impression: No acute fracture or malalignment. Shoulder X-Ray 07/30/25 19:47 Impression: No acute fracture or malalignment. Ribs w/Chest X-Ray 07/30/25 19:48 Impression: No acute fracture or malalignment. <Kellee Yarbrough PA-C - Last Filed: 07/31/25 00:27> ECG Data EKG #1: ECG completion date: 07/30/25 <RYAN Valdez Last Filed: 07/31/25 00:27> ECG completion time: 20:58 <DO Red Layton Last Filed: 07/31/25 00:38> Interpretation: Significant artifact, AFib with RVR rate of 114, normal axis, T-wave inversions in inferior leads, no ST changes <DO Red Layton Last Filed: 07/31/25 00:38> EKG Interpretation: atrial fibrillation (with RVR), non-specific ST changes (T wave inversions) and no acute changes (compared to EKG 07/24/25) <RYAN Valdez Last Filed: 07/31/25 00:27> Critical Care Time Critical Care Time Critical Care Time: Yes <RYAN Valdez Last Filed: 07/31/25 00:27> Total Critical Care Time: 35 <Kellee Yarbrough PA-C - Last Filed: 07/31/25 00:27> Discharge Plan Discharge Clinical Impression: Atrial fibrillation with rapid ventricular response, Acute UTI Fall Qualifiers: Encounter type: initial encounter Qualified Code(s): W19.XXXA - Unspecified fall, initial encounter <Kellee Yarbrough PA-C - Last Filed: 07/31/25 00:27> Patient Disposition: Still a Patient <Kellee Yarbrough PA-C - Last Filed: 07/31/25 00:27> Condition: Stable <Kellee Yarbrough PA-C - Last Filed: 07/31/25 00:27>
[2025-07-30 20:06] LABS: Hematocrit 38.3 % (37.0-47.0); Hemoglobin 12.9 g/dL (12.0-15.0); Immature Granulocyte Percent A 0.5 % (0-0.5); Lymphocytes Absolute Auto 0.89 K/mm3 (0.9-3.2); Mean Corpuscular HGB Conc 33.7 g/dl (32-36); Mean Corpuscular Hemoglobin 33.3 pg (26-34); Mean Corpuscular Volume 99.0 fl (80-100); Nucleated Red Blood Cells Absolute Auto 0.000 K/mm3 (0.0-0.012); Nucleated Red Blood Cells Perc 0.0 % (0.0-0.2); Platelet Count Result 291 k/mm3 (150-375); Red Blood Count 3.87 M/mm3 (4.2-5.4); White Blood Count 8.2 K/mm3 (4.5-10.0)
[2025-07-30 20:20] LABS: Alanine Aminotransferase 21 U/L (6-35); Albumin Level 4.1 g/dL (3.5-5.1); Alkaline Phosphatase 81 U/L (38-126); Anion Gap 7 mmol/L (4-12); Aspartate Amino Transferase 48 U/L (14-36); Bilirubin,Total 0.4 mg/dL (0.2-1.3); Blood Urea Nitrogen 26 mg/dL (7-17); Calcium 8.9 mg/dL (8.4-10.2); Carbon Dioxide 27 mmol/L (22-30); Chloride 104 mmol/L (98-107); Creatine Kinase 79 U/L (30-135); Estimated CRCL calculation 39 ml/min; Estimated Glomerular Filt Rate > 60; Glucose 124 mg/dL (65-110); Potassium 3.9 mmol/L (3.4-5.0); Sodium 138 mmol/L (137-145); Total Protein 8.1 g/dL (6.3-8.2)
[2025-07-30 20:47] LABS: Add Urine Microscopic? YES; Appearance Urine Cloudy (Clear); Glucose Urine UA Negative (Negative); Leukocyte Esterase Ur Trace LEU/UL (Negative); Nitrate Urine Positive (Negative); Non Pathogenic Casts 0-2; Specific Grav Ur 1.016 (1.001-1.035)
[2025-07-30 22:37] VITALS: PULSE 128
[2025-07-30] MEDS: METOPROLOL TARTRATE 50 MG TAB PO (22:37)
[2025-07-30] MEDS: cefTRIAXone 1 GM in SODIUM CHLORIDE 0.9% IV 50 ML 100 ML IVPB (22:43)
[2025-07-30 23:21] VITALS: BP 138/99; PULSE 90; RESP 18; O2SAT 99
[2025-07-30 23:24] LABS: Magnesium 2.0 mg/dL (1.6-2.3)
[2025-07-30 23:49] VITALS: PULSE 81
[2025-07-30] MEDS: SOTALOL HCL 80 MG TABLET PO (23:49)
[2025-07-30] MEDS: ACETAMINOPHEN 500 MG TABLET 1000 MG PO (23:52)
[2025-07-31] VITALS (14 sets, daily range): BP systolic 110–139; BP diastolic 67–98; PULSE 79–110; RESP 16–18; TEMP 36.4–37; O2SAT 97–99; BMI 24.1; BMI 24.2
--- NOTE | 2025-07-31 00:25 | ADMGEN ---
This patient, Maame Frias, was admitted to Medical Room 242-. Patient/family oriented to hospital policies and general routines including ID bracelet, bed and alarms, visiting hours, pain management, procedures, bathroom and other care routines, personal items, smoking policy, room service/diet, and visiting hours. Information on how to activate the Rapid Response Team has been discussed. Patient/Family are encouraged to report perceived risks to care and to ask questions if they do not understand what they are told or what they should do.
[2025-07-31] MEDS: CALCIUM/VITAMIN D 500 MG/5 MCG (200 I.U.) TABLET PO ×2 (08:30→21:36)
[2025-07-31] MEDS: DIGOXIN TAB 125 MCG TABLET PO (08:30)
[2025-07-31] MEDS: APIXABAN 5 MG TABLET PO ×2 (08:30→21:37)
[2025-07-31] MEDS: CHOLECALCIFEROL (VITAMIN D3) 25 MCG (1,000 UNITS) TABLET PO (08:30)
[2025-07-31] MEDS: SOTALOL HCL 80 MG TABLET PO ×2 (08:30→21:36)
[2025-07-31] MEDS: LEVOTHYROXINE SODIUM 75 MCG TABLET BY MOUTH (08:30)
[2025-07-31] MEDS: PANTOPRAZOLE 40 MG TABLET PO (08:30)
[2025-07-31] MEDS: THERAPEUTIC MULTIVITAMINS/MINERALS TAB (*BKC) 1 TABLET PO (08:30)
[2025-07-31] MEDS: CARBIDOPA/LEVODOPA 25/100 MG TABLET 1 TABLET PO ×3 (08:31→17:50)
[2025-07-31] MEDS: FUROSEMIDE 20 MG TABLET PO (08:31)
[2025-07-31] MEDS: ASPIRIN 81 MG CHEWABLE TABLET PO (08:31)
[2025-07-31] MEDS: METOPROLOL SUCCINATE EXT REL 50 MG TABCR PO ×2 (08:31→21:37)
[2025-07-31] MEDS: PHENobarbitaL (*CRX) 30 MG TABLET PO ×3 (08:58→21:37)
[2025-07-31] MEDS: LIDOCAINE 5% PATCH 1 PATCH TRANSDERM (08:58)
--- NOTE | 2025-07-31 13:42 | PHAR ---
PT'S HOME MED DILANTIN 100 MG CAPSULES VERIFIED BY PHARMACY
[2025-07-31] MEDS: ACETAMINOPHEN 500 MG TABLET 1000 MG PO (13:48)
--- NOTE | 2025-07-31 14:02 | PM.IMHP ---
H&P: HPI History of Present Illness Date/Time: 07/31/25 14:02 Chief Complaint: Fall Narrative: ER-HPI Narrative: This is a 84 year old female that presents to the ER for a fall today. Reports she fell about 5 hours ago. Was not able to get up off the floor. Finally found her phone and called 911. Reports right sided rib pain, right shoulder pain. Unsure if she hit her head. She did not lose consciousness. She is on anticoagulation. Patient was just discharged and plan was patient follow up with rn transfer at [facility] for Ablation of perisitent A. Fib. however patient fell last night while standing between her living room and bedroom, does not know what exactly happen, no c/o CP, SOB, palpitation or dizziness. suspect most likely syncopal episode 2/2 cardiac arrhythmia, will PT/OT evaluate the patient and further recommendation to follow. patient with persistent A. fib and has had previous cardio version 5x., her HR is reasonably controlled with metoprolol and sotalol. seen by the rn transfer and recommending once patient weaned of sotalol, patient can be loaded with dofetillde and have AYO cardioversion and patient is agreeable with the plan as patient is not keen going to [facility], in the event cardioversion fails in that case will need ablation procedure, patient remain clinically stable and has no complaints, will monitor have PT/OT evaluate the patient. patient is on metoprolol 25mg BID, and sotalol 80mg BID, and on digoxin, patient remains in A.fib but rate is controlled, patient does not want cardio version as she had 5 cardio version and remains in A.fib, patient remains clinically stable, was able to walk in hallways without any Review of Systems Review of Systems: All systems reviewed & are unremarkable except as noted in HPI and below PMFSH Past Medical History Medical History Parkinsons disease Chronic anticoagulation Arthritis Paroxysmal atrial fibrillation history of cardioversion in 12/2023 Pulmonary embolism (11/2023) Constipation Wears glasses Lumbar radiculopathy Vitamin D deficiency Low vitamin D level Hypertension Vitamin D deficiency Hypothyroidism Cerebral palsy Patient denies this diagnosis but states she has had right-sided weakness and spasticity since . 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 Code status: Full code. Smoking status: Never smoker Second hand tobacco smoke exposure: No Alcohol intake: never Substance use: never Substance use type: does not use Do You Feel Safe in your Home?: Yes Lack of Transportation: No Lack of Food: Never True Current Housing: I Have Housing Concerned About Future Housing: No Difficulty Paying Gas/Electric Bills: No Difficulty Paying for Meds: No Currently Unemployed: No Education: High School Diploma/GED Difficulty w/ Childcare or Family Care: Decline to Answer Living arrangements: assisted living Additional living arrangements comments: . Occupation/Education: retired Gender identity (if verbalized by the patient): Female Spiritual care concerns: No Meds Home Medications and Allergies Home Medications ?Medication ?Instructions ?Recorded ?Confirmed ?Type mecobalamin (vitamin B12) 1,000 1,000 mcg PO EVERY OTHER DAY #90 11/23/24 07/31/25 Rx mcg disintegrating tabs tablet,sublingual cholecalciferol (vitamin D3) 25 25 mcg PO DAILY 12/27/24 07/31/25 History mcg (1,000 unit) capsule clopidogrel 75 mg tablet 75 mg PO DAILY 12/27/24 07/31/25 History Held on 07/29/25. Instructions: until seen by her rn transfer Dilantin Extended 100 mg capsule 100 mg PO TID #300 caps 03/28/25 07/31/25 Rx (phenytoin sodium extended) phenobarbital 30 mg tablet 30 mg PO TID #90 tabs 03/28/25 07/31/25 Rx carbidopa 25 mg-levodopa 100 mg 1 tablet PO TID #300 tabs 04/11/25 07/31/25 Rx tablet apixaban 5 mg tablet (Eliquis) 5 mg PO Q12H 05/10/25 07/31/25 History levothyroxine 75 mcg tablet See Rx Instructions .Route 06/07/25 07/31/25 Rx .COMPLEX #30 tabs acetaminophen 500 mg tablet 1,000 mg PO Q6H PRN pain 07/24/25 07/31/25 History (Tylenol Extra Strength) aspirin 81 mg chewable tablet 1 tablet PO DAILY 07/24/25 07/31/25 History calcium 600 mg (as 1 tablet PO Q12H 07/24/25 07/31/25 History carbonate)-vitamin D3 10 mcg (400 unit) tablet docusate sodium 100 mg tablet 100 mg PO QHS 07/24/25 07/31/25 History furosemide 20 mg tablet 20 mg PO DAILY 07/24/25 07/31/25 History unkruwdc-jsol-kodh 8 mg-folic 400 1 tablet PO DAILY 07/24/25 07/31/25 History mcg-K 50 mcg-lutein 300 mcg tablet (Multivitamin Women 50 Plus) pantoprazole 40 mg tablet,delayed 40 mg PO DAILY 07/24/25 07/31/25 History release sotalol 80 mg tablet 80 mg PO Q12H 07/24/25 07/31/25 History digoxin 125 mcg (0.125 mg) tablet 125 mcg PO QAM #30 tabs 07/29/25 07/31/25 Rx lidocaine 5 % topical patch 1 patch transdermal DAILY #15 ea 07/29/25 07/31/25 Rx (Lidoderm) metoprolol succinate 50 mg 50 mg PO BID #60 tabs 07/29/25 07/31/25 Rx tablet,extended release 24 hr Allergies Allergy/AdvReac Type Severity Reaction Status Date / Time No Known Allergies Allergy Verified 07/31/25 00:52 Vital Signs Vital Signs - 24 hr 07/30/25 18:31 07/30/25 22:37 07/30/25 23:21 Temperature 36.5 C Pulse Rate 65 128 H 90 Respiratory Rate 20 18 Blood Pressure 157/96 H 138/99 H Pulse Oximetry 100 99 Oxygen Delivery Room Air 07/30/25 23:49 07/31/25 00:17 07/31/25 00:40 Temperature 36.5 C Pulse Rate 81 110 H 89 Respiratory Rate 16 18 Blood Pressure 138/98 H 137/94 H Pulse Oximetry 99 97 Oxygen Delivery 07/31/25 01:28 07/31/25 04:00 07/31/25 06:00 Temperature 36.6 C Pulse Rate 80 94 Respiratory Rate 18 Blood Pressure 139/77 Pulse Oximetry 97 Oxygen Delivery Room Air 07/31/25 08:00 07/31/25 08:30 07/31/25 08:30 Temperature Pulse Rate 87 87 Respiratory Rate Blood Pressure Pulse Oximetry Oxygen Delivery Room Air 07/31/25 08:31 07/31/25 13:28 Temperature Pulse Rate 87 Respiratory Rate Blood Pressure Pulse Oximetry Oxygen Delivery Room Air Exam Narrative: Patient is comfortable, NAD HEENT: eyes are clear and none icteric LUNGS:CTA HEART: RR S1S2 ABD: BS+, Soft and nontender Lower extremities: no edema SKIN: nonjaundiced Neuro: grossly intact. H&P: Results Labs Labs: Short CBC 07/30/25 Range/Units 19:59 WBC 8.2 (4.5-10.0) K/mm3 Hgb 12.9 (12.0-15.0) g/dL Hct 38.3 (37.0-47.0) % Plt Count 291 (150-375) k/mm3 BMP 07/30/25 19:59 Sodium 138 Potassium 3.9 Chloride 104 Carbon Dioxide 27 BUN 26 H Creatinine 0.81 Glucose 124 H Calcium 8.9 Cardiac Enzymes 07/30/25 Range/Units 19:59 Total Creatine Kinase 79 (30-135) U/L Liver Function 07/30/25 Range/Units 19:59 Total Bilirubin 0.4 (0.2-1.3) mg/dL AST 48 H (14-36) U/L ALT 21 (6-35) U/L Alkaline Phosphatase 81 (38-126) U/L Albumin 4.1 (3.5-5.1) g/dL Urine 07/30/25 Range/Units 20:36 Urine Color Yellow (Yellow) Urine Appearance Cloudy H (Clear) Urine pH 7.5 (5.0-9.0) Ur Specific [place] 1.016 (1.001-1.035) Urine Protein Trace (Negative) mg/dL Urine Glucose (UA) Negative (Negative) mg/dL Assessment and Plan Assessment and plan (1) A-fib: Qualifiers: Atrial fibrillation type: paroxysmal Qualified Code(s): I48.0 - Paroxysmal atrial fibrillation Code(s): I48.91 - Unspecified atrial fibrillation Status: Acute (2) Fall: Code(s): W19.XXXA - Unspecified fall, initial encounter Status: Acute (3) Hypertension: Qualifiers: Hypertension type: essential hypertension Qualified Code(s): I10 - Essential (primary) hypertension Code(s): I10 - Essential (primary) hypertension Status: Chronic (4) Chronic anticoagulation: Code(s): 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 Fib. however patient fell last night while standing between her living room and bedroom, does not know what exactly happen, no c/o CP, SOB, palpitation or dizziness. suspect most likely syncopal episode 2/2 cardiac arrhythmia, will PT/OT evaluate the patient and further recommendation to follow. patient with persistent A. fib and has had previous cardio version 5x., her HR is reasonably controlled with metoprolol and sotalol. seen by the rn transfer and recommending once patient weaned of sotalol, patient can be loaded with dofetillde and have AYO cardioversion and patient is agreeable with the plan as patient is not keen going to [facility], in the event cardioversion fails in that case will need ablation procedure, patient remain clinically stable and has no complaints, will monitor have PT/OT evaluate the patient. patient is on metoprolol 25mg BID, and sotalol 80mg BID, and on digoxin, patient remains in A.fib but rate is controlled, patient does not want cardio version as she had 5 cardio version and remains in A.fib, patient remains clinically stable, was able to walk in hallways without any Quality VTE Prophylaxis VTE prophylaxis: pharmacologic ordered Hospitalist MIPS Advance Care Plan The patient's Advanced Care plan is not present because:: Patient doesn't want to name surrogate or provider advance care plan Medication Reconciliation The patient is not eligible for med reconciliation; the patient is in a emergent medical situation where delaying treatment would jeopardize the patients health.: Yes
[2025-07-31] MEDS: DOCUSATE SODIUM 100 MG CAPSULE PO (21:37)
[2025-07-31] MEDS: cefTRIAXone 1 GM in SODIUM CHLORIDE 0.9% IV 50 ML 100 ML IVPB (21:37)
[2025-08-01] VITALS (11 sets, daily range): BP systolic 112–133; BP diastolic 59–84; PULSE 74–100; RESP 16–18; TEMP 36.4–36.7; O2SAT 96–98
[2025-08-01 05:21] LABS: Hematocrit 36.5 % (37.0-47.0); Hemoglobin 12.0 g/dL (12.0-15.0); Mean Corpuscular HGB Conc 32.9 g/dl (32-36); Mean Corpuscular Hemoglobin 32.5 pg (26-34); Mean Corpuscular Volume 98.9 fl (80-100); Platelet Count Result 275 k/mm3 (150-375); Red Blood Count 3.69 M/mm3 (4.2-5.4); White Blood Count 4.8 K/mm3 (4.5-10.0)
[2025-08-01] MEDS: PHENobarbitaL (*CRX) 30 MG TABLET PO ×3 (05:41→21:09)
[2025-08-01] MEDS: LEVOTHYROXINE SODIUM 75 MCG TABLET BY MOUTH (05:41)
[2025-08-01 05:42] LABS: Anion Gap 7 mmol/L (4-12); Blood Urea Nitrogen 22 mg/dL (7-17); Calcium 8.9 mg/dL (8.4-10.2); Carbon Dioxide 25 mmol/L (22-30); Chloride 106 mmol/L (98-107); Estimated CRCL calculation 48 ml/min; Estimated Glomerular Filt Rate > 60; Glucose 96 mg/dL (65-110); Magnesium 2.1 mg/dL (1.6-2.3); Potassium 4.1 mmol/L (3.4-5.0); Sodium 138 mmol/L (137-145)
[2025-08-01] MEDS: CARBIDOPA/LEVODOPA 25/100 MG TABLET 1 TABLET PO ×3 (05:43→17:02)
[2025-08-01] MEDS: LIDOCAINE 5% PATCH 1 PATCH TRANSDERM (09:24)
[2025-08-01] MEDS: CHOLECALCIFEROL (VITAMIN D3) 25 MCG (1,000 UNITS) TABLET PO (09:25)
[2025-08-01] MEDS: ASPIRIN 81 MG CHEWABLE TABLET PO (09:25)
[2025-08-01] MEDS: CALCIUM/VITAMIN D 500 MG/5 MCG (200 I.U.) TABLET PO ×2 (09:25→21:09)
[2025-08-01] MEDS: SOTALOL HCL 80 MG TABLET PO ×2 (09:25→21:09)
[2025-08-01] MEDS: METOPROLOL SUCCINATE EXT REL 50 MG TABCR PO ×2 (09:25→21:09)
[2025-08-01] MEDS: DIGOXIN TAB 125 MCG TABLET PO (09:25)
[2025-08-01] MEDS: PANTOPRAZOLE 40 MG TABLET PO (09:25)
[2025-08-01] MEDS: THERAPEUTIC MULTIVITAMINS/MINERALS TAB (*BKC) 1 TABLET PO (09:25)
[2025-08-01] MEDS: APIXABAN 5 MG TABLET PO ×2 (09:26→21:09)
[2025-08-01] MEDS: FUROSEMIDE 20 MG TABLET PO (09:26)
[2025-08-01] MEDS: CYANOCOBALAMIN 1,000 MCG TABLET 1000 MCG PO (09:29)
--- NOTE | 2025-08-01 14:47 | PM.IMPN ---
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 Fib. however patient night before while standing between her living room and bedroom, does not know what exactly happen, no c/o CP, SOB, palpitation or dizziness. suspect most likely syncopal episode 2/2 cardiac arrhythmia, will have PT/OT evaluate the patient and further recommendation to follow. Today patient did work with PT and they recommending acute rehab before discharging home. patient is clinically stable, will CPM and plan. patient with persistent A. fib and has had previous cardio version 5x., her HR is reasonably controlled with metoprolol and sotalol. seen by the gauge and weigh machine adjuster and recommending once patient weaned of sotalol, patient can be loaded with dofetillde and have AYO cardioversion and patient is agreeable with the plan as patient is not keen going to [facility], in the event cardioversion fails in that case will need ablation procedure, patient remain clinically stable and has no complaints, will monitor have PT/OT evaluate the patient. patient is on metoprolol 25mg BID, and sotalol 80mg BID, and on digoxin, patient remains in A.fib but rate is controlled, patient does not want cardio version as she had 5 cardio version and remains in A.fib, patient remains clinically stable, was able to walk in hallways without any Subjective Date/time seen: 08/01/25 14:47 Interval history: Patient was just discharged and plan was patient follow up with her gauge and weigh machine adjuster at [facility] for Ablation of persistent A. Fib. however patient night before while standing between her living room and bedroom, does not know what exactly happen, no c/o CP, SOB, palpitation or dizziness. suspect most likely syncopal episode 2/2 cardiac arrhythmia, will have PT/OT evaluate the patient and further recommendation to follow. Today patient did work with PT and they recommending acute rehab before discharging home. patient is clinically stable, will CPM and plan. patient with persistent A. fib and has had previous cardio version 5x., her HR is reasonably controlled with metoprolol and sotalol. seen by the gauge and weigh machine adjuster and recommending once patient weaned of sotalol, patient can be loaded with dofetillde and have AYO cardioversion and patient is agreeable with the plan as patient is not keen going to [facility], in the event cardioversion fails in that case will need ablation procedure, patient remain clinically stable and has no complaints, will monitor have PT/OT evaluate the patient. patient is on metoprolol 25mg BID, and sotalol 80mg BID, and on digoxin, patient remains in A.fib but rate is controlled, patient does not want cardio version as she had 5 cardio version and remains in A.fib, patient remains clinically stable, was able to walk in hallways without any Review of Systems Review of Systems: All systems reviewed & are unremarkable except as noted in HPI and below Exam Narrative: Patient is comfortable, NAD HEENT: eyes are clear and none icteric LUNGS:CTA HEART: RR S1S2 ABD: BS+, Soft and nontender Lower extremities: no edema SKIN: nonjaundiced Neuro: grossly intact. Objective Data Vital Signs Vital Signs: Vital Signs - 24 hr 07/31/25 16:00 07/31/25 20:00 07/31/25 21:36 Temperature Pulse Rate 92 79 88 Respiratory Rate Blood Pressure Pulse Oximetry Oxygen Delivery 07/31/25 21:37 07/31/25 21:49 07/31/25 22:00 Temperature 36.4 C L Pulse Rate 88 84 Respiratory Rate 18 Blood Pressure 117/67 Pulse Oximetry 98 Oxygen Delivery Room Air 08/01/25 00:00 08/01/25 04:00 08/01/25 06:00 Temperature 36.7 C Pulse Rate 86 85 97 Respiratory Rate 18 Blood Pressure 133/84 Pulse Oximetry 96 Oxygen Delivery 08/01/25 08:00 08/01/25 08:00 08/01/25 09:25 Temperature Pulse Rate 100 87 Respiratory Rate Blood Pressure Pulse Oximetry Oxygen Delivery Room Air 08/01/25 09:25 08/01/25 09:25 08/01/25 12:00 Temperature Pulse Rate 87 87 88 Respiratory Rate Blood Pressure Pulse Oximetry Oxygen Delivery Intake/Output Intake/Output: Intake & Output 07/29/25 07/30/25 07/31/25 08/01/25 23:59 23:59 23:59 23:59 Intake Total 50 360 360 Balance 50 360 360 Meds/Results Medications: Active Medications Generic Name Dose Route Start Last Admin Trade Name Freq PRN Reason Stop Dose Admin Acetaminophen 1,000 mg 07/31/25 07:41 07/31/25 13:48 Acetaminophen 500 Mg Tablet PO 1,000 mg Q6H PRN Administration Pain Apixaban 5 mg 07/31/25 09:00 08/01/25 09:26 Apixaban 5 Mg Tablet PO 5 mg Q12HR MANN Administration Aspirin 81 mg 07/31/25 09:00 08/01/25 09:25 Aspirin 81 Mg Chewable Tablet PO 81 mg DAILY MANN Administration Calcium Carbonate 500 mg 07/31/25 09:00 08/01/25 09:25 Calcium/Vitamin D 500 Mg/5 Mcg (200 I.U.) Tablet PO 500 mg Q12HR MANN Administration Carbidopa/Levodopa 1 tablet 08/01/25 11:50 08/01/25 11:54 Carbidopa/Levodopa 25/100 Mg Tablet PO 1 tablet 0630,1130,1630 MANN Administration Cyanocobalamin 1,000 mcg 08/01/25 09:00 08/01/25 09:29 Cyanocobalamin 1,000 Mcg Tablet PO 1,000 mcg MoWeFr@0900 MANN Administration Digoxin 125 mcg 07/31/25 09:00 08/01/25 09:25 Digoxin Tab 125 Mcg Tablet PO 125 mcg QAM MANN Administration Docusate Sodium 100 mg 07/31/25 21:00 07/31/25 21:37 Docusate Sodium 100 Mg Capsule PO 100 mg QHS MANN Administration Furosemide 20 mg 07/31/25 09:00 08/01/25 09:26 Furosemide 20 Mg Tablet PO 20 mg DAILY MANN Administration Ceftriaxone Sodium 1 gm/ 50 mls @ 100 mls/hr 07/31/25 21:00 07/31/25 21:37 Sodium Chloride IVPB 100 mls/hr Q24H MANN Administration Levothyroxine Sodium 75 mcg 07/31/25 08:00 08/01/25 05:41 Levothyroxine Sodium 75 Mcg Tablet BY MOUTH 75 mcg DAILY@0630 MANN Administration Lidocaine 1 patch 07/31/25 09:00 08/01/25 09:24 Lidocaine 5% Patch TRANSDERM 1 patch DAILY MANN Administration Metoprolol Succinate 50 mg 07/31/25 09:00 08/01/25 09:25 Metoprolol Succinate Ext Rel 50 Mg Tabcr PO 50 mg Q12HR MANN Administration Multivitamins/Calcium 1 tablet 07/31/25 09:00 08/01/25 09:25 Therapeutic Multivitamins/Minerals Tab (*Bkc) PO 1 tablet DAILY MANN Administration Home Med: Dilantin 1 each 07/31/25 13:50 08/01/25 09:26 (Phenytoin Sodium PO 08/30/25 13:49 1 each Extended 100 Mg Oral TID MANN Administration Capsule) Pantoprazole Sodium 40 mg 07/31/25 09:00 08/01/25 09:25 Pantoprazole 40 Mg Tablet PO 40 mg DAILY MANN Administration Phenobarbital 30 mg 07/31/25 09:00 08/01/25 05:41 Phenobarbital (*Crx) 30 Mg Tablet PO 30 mg Q8HR MANN Administration Sotalol HCl 80 mg 07/31/25 09:00 08/01/25 09:25 Sotalol Hcl 80 Mg Tablet PO 80 mg Q12HR MANN Administration Vitamin D 25 mcg 07/31/25 09:00 08/01/25 09:25 Cholecalciferol (Vitamin D3) 25 Mcg (1,000 Units) Tablet PO 25 mcg DAILY MANN Administration Radiology Results: ITS Impressions Wrist X-Ray 07/30/25 19:46 Impression: No acute fracture or malalignment. Pelvis X-Ray 07/30/25 19:47 Impression: No acute fracture or malalignment. Shoulder X-Ray 07/30/25 19:47 Impression: No acute fracture or malalignment. Ribs w/Chest X-Ray 07/30/25 19:48 Impression: No acute fracture or malalignment. Cervical Spine CT 07/31/25 07:16 IMPRESSION: HEAD: 1. No acute intracranial findings. C-SPINE: 1. No acute fracture. Head CT 07/31/25 07:16 IMPRESSION: HEAD: 1. No acute intracranial findings. C-SPINE: 1. No acute fracture. Labs Labs: Laboratory Results - last 24 hr 08/01/25 04:44 WBC 4.8 RBC 3.69 L Hgb 12.0 Hct 36.5 L MCV 98.9 MCH 32.5 MCHC 32.9 RDW 14.5 Plt Count 275 MPV 9.4 Sodium 138 Potassium 4.1 Chloride 106 Carbon Dioxide 25 Anion Gap 7 BUN 22 H Creatinine 0.65 L Estim Creat Clear Calc 48 Estimated GFR > 60 Glucose 96 Calcium 8.9 Magnesium 2.1 Quality VTE Prophylaxis VTE prophylaxis: pharmacologic ordered
[2025-08-01] MEDS: ACETAMINOPHEN 500 MG TABLET 1000 MG PO (17:01)
[2025-08-01] MEDS: KETOROLAC 15 MG/ML VIAL (*BKC) IV PUSH (20:03)
[2025-08-01] MEDS: DOCUSATE SODIUM 100 MG CAPSULE PO (21:09)
[2025-08-01] MEDS: cefTRIAXone 1 GM in SODIUM CHLORIDE 0.9% IV 50 ML 100 ML IVPB (21:09)
[2025-08-02] VITALS (11 sets, daily range): BP systolic 131–136; BP diastolic 71–76; PULSE 66–109; RESP 16–18; TEMP 36.4–36.5; O2SAT 90–99
[2025-08-02 05:16] LABS: Hematocrit 34.9 % (37.0-47.0); Hemoglobin 11.7 g/dL (12.0-15.0); Mean Corpuscular HGB Conc 33.5 g/dl (32-36); Mean Corpuscular Hemoglobin 33.3 pg (26-34); Mean Corpuscular Volume 99.4 fl (80-100); Platelet Count Result 260 k/mm3 (150-375); Red Blood Count 3.51 M/mm3 (4.2-5.4); White Blood Count 5.3 K/mm3 (4.5-10.0)
[2025-08-02 05:25] LABS: Anion Gap 5 mmol/L (4-12); Blood Urea Nitrogen 24 mg/dL (7-17); Calcium 8.9 mg/dL (8.4-10.2); Carbon Dioxide 26 mmol/L (22-30); Chloride 104 mmol/L (98-107); Estimated CRCL calculation 40 ml/min; Estimated Glomerular Filt Rate > 60; Glucose 92 mg/dL (65-110); Magnesium 1.9 mg/dL (1.6-2.3); Potassium 4.2 mmol/L (3.4-5.0); Sodium 135 mmol/L (137-145)
[2025-08-02] MEDS: LEVOTHYROXINE SODIUM 75 MCG TABLET BY MOUTH (05:46)
[2025-08-02] MEDS: PHENobarbitaL (*CRX) 30 MG TABLET PO ×3 (05:46→21:06)
[2025-08-02] MEDS: CARBIDOPA/LEVODOPA 25/100 MG TABLET 1 TABLET PO ×3 (05:46→17:06)
[2025-08-02] MEDS: SOTALOL HCL 80 MG TABLET PO ×2 (09:02→21:06)
[2025-08-02] MEDS: DIGOXIN TAB 125 MCG TABLET PO (09:02)
[2025-08-02] MEDS: CHOLECALCIFEROL (VITAMIN D3) 25 MCG (1,000 UNITS) TABLET PO (09:02)
[2025-08-02] MEDS: APIXABAN 5 MG TABLET PO ×2 (09:02→21:06)
[2025-08-02] MEDS: THERAPEUTIC MULTIVITAMINS/MINERALS TAB (*BKC) 1 TABLET PO (09:02)
[2025-08-02] MEDS: METOPROLOL SUCCINATE EXT REL 50 MG TABCR PO ×2 (09:02→21:06)
[2025-08-02] MEDS: CALCIUM/VITAMIN D 500 MG/5 MCG (200 I.U.) TABLET PO ×2 (09:02→21:06)
[2025-08-02] MEDS: PANTOPRAZOLE 40 MG TABLET PO (09:02)
[2025-08-02] MEDS: LIDOCAINE 5% PATCH 1 PATCH TRANSDERM (09:03)
[2025-08-02] MEDS: FUROSEMIDE 20 MG TABLET PO (09:03)
[2025-08-02] MEDS: ASPIRIN 81 MG CHEWABLE TABLET PO (09:03)
[2025-08-02] MEDS: DOCUSATE SODIUM 100 MG CAPSULE PO (21:06)
[2025-08-02] MEDS: cefTRIAXone 1 GM in SODIUM CHLORIDE 0.9% IV 50 ML 100 ML IVPB (21:06)
[2025-08-03] VITALS (13 sets, daily range): BP systolic 120–133; BP diastolic 74–83; PULSE 71–111; RESP 17–18; TEMP 36.1–36.5; O2SAT 96–97
[2025-08-03 04:29] LABS: Hematocrit 35.8 % (37.0-47.0); Hemoglobin 12.0 g/dL (12.0-15.0); Mean Corpuscular HGB Conc 33.5 g/dl (32-36); Mean Corpuscular Hemoglobin 33.1 pg (26-34); Mean Corpuscular Volume 98.6 fl (80-100); Platelet Count Result 273 k/mm3 (150-375); Red Blood Count 3.63 M/mm3 (4.2-5.4); White Blood Count 5.9 K/mm3 (4.5-10.0)
[2025-08-03 04:38] LABS: Anion Gap 6 mmol/L (4-12); Blood Urea Nitrogen 22 mg/dL (7-17); Calcium 9.3 mg/dL (8.4-10.2); Carbon Dioxide 27 mmol/L (22-30); Chloride 103 mmol/L (98-107); Estimated CRCL calculation 44 ml/min; Estimated Glomerular Filt Rate > 60; Glucose 110 mg/dL (65-110); Magnesium 1.9 mg/dL (1.6-2.3); Potassium 4.2 mmol/L (3.4-5.0); Sodium 136 mmol/L (137-145)
[2025-08-03] MEDS: PHENobarbitaL (*CRX) 30 MG TABLET PO ×3 (05:47→21:21)
[2025-08-03] MEDS: CARBIDOPA/LEVODOPA 25/100 MG TABLET 1 TABLET PO ×3 (05:47→16:54)
[2025-08-03] MEDS: LEVOTHYROXINE SODIUM 75 MCG TABLET BY MOUTH (05:47)
[2025-08-03] MEDS: ACETAMINOPHEN 500 MG TABLET 1000 MG PO (05:50)
[2025-08-03] MEDS: PANTOPRAZOLE 40 MG TABLET PO (09:17)
[2025-08-03] MEDS: CHOLECALCIFEROL (VITAMIN D3) 25 MCG (1,000 UNITS) TABLET PO (09:17)
[2025-08-03] MEDS: CALCIUM/VITAMIN D 500 MG/5 MCG (200 I.U.) TABLET PO ×2 (09:17→21:18)
[2025-08-03] MEDS: SOTALOL HCL 80 MG TABLET PO ×2 (09:17→21:20)
[2025-08-03] MEDS: DIGOXIN TAB 125 MCG TABLET PO (09:17)
[2025-08-03] MEDS: THERAPEUTIC MULTIVITAMINS/MINERALS TAB (*BKC) 1 TABLET PO (09:17)
[2025-08-03] MEDS: ASPIRIN 81 MG CHEWABLE TABLET PO (09:18)
[2025-08-03] MEDS: APIXABAN 5 MG TABLET PO ×2 (09:18→21:21)
[2025-08-03] MEDS: METOPROLOL SUCCINATE EXT REL 50 MG TABCR PO ×2 (09:18→21:19)
[2025-08-03] MEDS: LIDOCAINE 5% PATCH 1 PATCH TRANSDERM (09:18)
[2025-08-03] MEDS: CYANOCOBALAMIN 1,000 MCG TABLET 1000 MCG PO (09:23)
[2025-08-03] MEDS: FUROSEMIDE 20 MG TABLET PO (09:23)
--- NOTE | 2025-08-03 12:34 | P.PNIM_ITS ---
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 Fib. however patient night before while standing between her living room and bedroom, does not know what exactly happen, no c/o CP, SOB, palpitation or dizziness. suspect most likely syncopal episode 2/2 cardiac arrhythmia, will have PT/OT evaluate the patient and further recommendation to follow. Today patient did work with PT and they recommending acute rehab before discharging home. patient is clinically stable, will CPM and plan. patient with persistent A. fib and has had previous cardio version 5x., her HR is reasonably controlled with metoprolol and sotalol. seen by the systems requirements planner and recommending once patient weaned of sotalol, patient can be loaded with dofetillde and have AYO cardioversion and patient is agreeable with the plan as patient is not keen going to [facility] in the event cardioversion fails in that case will need ablation procedure, patient remain clinically stable and has no complaints, will monitor have PT/OT evaluate the patient. patient is on metoprolol 25mg BID, and sotalol 80mg BID, and on digoxin, patient remains in A.fib but rate is controlled, patient does not want cardio version as she had 5 cardio version and remains in A.fib, patient remains clinically stable, was able to walk in hallways without any Today patient is sitting in the chair eating her lunch, denies any CP, or palpitation, patient states feels better, patient will benefit going to [facility], once patient is clincally needs to follow up with her EP- systems requirements planner at [facility]. will discharge patient to [facility] today. Subjective Date/time seen: 08/03/25 12:34 Interval history: Patient was just discharged and plan was patient follow up with her systems requirements planner at [facility] for Ablation of persistent A. Fib. however patient night before while standing between her living room and bedroom, does not know what exactly happen, no c/o CP, SOB, palpitation or dizziness. suspect most likely syncopal episode 2/2 cardiac arrhythmia, will have PT/OT evaluate the patient and further recommendation to follow. Today patient did work with PT and they recommending acute rehab before discharging home. patient is clinically stable, will CPM and plan. patient with persistent A. fib and has had previous cardio version 5x., her HR is reasonably controlled with metoprolol and sotalol. seen by the systems requirements planner and recommending once patient weaned of sotalol, patient can be loaded with dofetillde and have AYO cardioversion and patient is agreeable with the plan as patient is not keen going to [facility] in the event cardioversion fails in that case will need ablation procedure, patient remain clinically stable and has no complaints, will monitor have PT/OT evaluate the patient. patient is on metoprolol 25mg BID, and sotalol 80mg BID, and on digoxin, patient remains in A.fib but rate is controlled, patient does not want cardio version as she had 5 cardio version and remains in A.fib, patient remains clinically stable, was able to walk in hallways without any. Today patient is sitting in the chair eating her lunch, denies any CP, or palpitation, patient states feels better, patient will benefit going to [facility], once patient is clincally needs to follow up with her EP- systems requirements planner at [facility]. [facility]. Review of Systems Review of Systems: All systems reviewed & are unremarkable except as noted in HPI and below Exam Narrative: Patient is comfortable, NAD HEENT: eyes are clear and none icteric LUNGS:CTA HEART: RR S1S2 ABD: BS+, Soft and nontender Lower extremities: no edema SKIN: nonjaundiced Neuro: grossly intact. Objective Data Vital Signs Vital Signs: Vital Signs - 24 hr 08/02/25 14:00 08/02/25 16:00 08/02/25 19:45 Temperature 36.4 C 36.5 C Pulse Rate 68 96 66 Respiratory Rate 16 18 Blood Pressure 136/71 136/72 Pulse Oximetry 99 97 Oxygen Delivery 08/02/25 20:00 08/02/25 21:06 08/02/25 21:06 Temperature Pulse Rate 83 93 93 Respiratory Rate Blood Pressure Pulse Oximetry Oxygen Delivery 08/02/25 21:27 08/03/25 00:00 08/03/25 03:18 Temperature 36.5 C Pulse Rate 87 111 H Respiratory Rate 18 Blood Pressure 133/83 Pulse Oximetry 97 Oxygen Delivery Room Air 08/03/25 04:00 08/03/25 08:00 08/03/25 09:17 Temperature Pulse Rate 90 89 90 Respiratory Rate Blood Pressure Pulse Oximetry Oxygen Delivery 08/03/25 09:17 08/03/25 09:18 08/03/25 09:20 Temperature Pulse Rate 90 90 Respiratory Rate Blood Pressure Pulse Oximetry Oxygen Delivery Room Air Intake/Output Intake/Output: Intake & Output 07/31/25 08/01/25 08/02/25 08/03/25 23:59 23:59 23:59 23:59 Intake Total 188 741 4203 770 Balance 153 939 9737 770 Meds/Results Medications: Active Medications Generic Name Dose Route Start Last Admin Trade Name Anayeli PRN Reason Stop Dose Admin Acetaminophen 1,000 mg 07/31/25 07:41 08/03/25 05:50 Acetaminophen 500 Mg Tablet PO 1,000 mg Q6H PRN Administration Pain Apixaban 5 mg 07/31/25 09:00 08/03/25 09:18 Apixaban 5 Mg Tablet PO 5 mg Q12HR MANN Administration Aspirin 81 mg 07/31/25 09:00 08/03/25 09:18 Aspirin 81 Mg Chewable Tablet PO 81 mg DAILY MANN Administration Calcium Carbonate 500 mg 07/31/25 09:00 08/03/25 09:17 Calcium/Vitamin D 500 Mg/5 Mcg (200 I.U.) Tablet PO 500 mg Q12HR MANN Administration Carbidopa/Levodopa 1 tablet 08/01/25 11:50 08/03/25 11:51 Carbidopa/Levodopa 25/100 Mg Tablet PO 1 tablet 0630,1130,1630 MANN Administration Cyanocobalamin 1,000 mcg 08/01/25 09:00 08/03/25 09:23 Cyanocobalamin 1,000 Mcg Tablet PO 1,000 mcg MoWeFr@0900 MANN Administration Digoxin 125 mcg 07/31/25 09:00 08/03/25 09:17 Digoxin Tab 125 Mcg Tablet PO 125 mcg QAM MANN Administration Docusate Sodium 100 mg 07/31/25 21:00 08/02/25 21:06 Docusate Sodium 100 Mg Capsule PO 100 mg QHS MANN Administration Furosemide 20 mg 07/31/25 09:00 08/03/25 09:23 Furosemide 20 Mg Tablet PO 20 mg DAILY MANN Administration Ceftriaxone Sodium 1 gm/ 50 mls @ 100 mls/hr 07/31/25 21:00 08/02/25 21:06 Sodium Chloride IVPB 100 mls/hr Q24H MANN Administration Levothyroxine Sodium 75 mcg 07/31/25 08:00 08/03/25 05:47 Levothyroxine Sodium 75 Mcg Tablet BY MOUTH 75 mcg DAILY@0630 MANN Administration Lidocaine 1 patch 07/31/25 09:00 08/03/25 09:18 Lidocaine 5% Patch TRANSDERM 1 patch DAILY MANN Administration Metoprolol Succinate 50 mg 07/31/25 09:00 08/03/25 09:18 Metoprolol Succinate Ext Rel 50 Mg Tabcr PO 50 mg Q12HR MANN Administration Multivitamins/Calcium 1 tablet 07/31/25 09:00 08/03/25 09:17 Therapeutic Multivitamins/Minerals Tab (*Bkc) PO 1 tablet DAILY MANN Administration Home Med: Dilantin 1 each 07/31/25 13:50 08/03/25 09:19 (Phenytoin Sodium PO 08/30/25 13:49 1 each Extended 100 Mg Oral TID MANN Administration Capsule) Pantoprazole Sodium 40 mg 07/31/25 09:00 08/03/25 09:17 Pantoprazole 40 Mg Tablet PO 40 mg DAILY MANN Administration Phenobarbital 30 mg 07/31/25 09:00 08/03/25 05:47 Phenobarbital (*Crx) 30 Mg Tablet PO 30 mg Q8HR MANN Administration Sotalol HCl 80 mg 07/31/25 09:00 08/03/25 09:17 Sotalol Hcl 80 Mg Tablet PO 80 mg Q12HR MANN Administration Vitamin D 25 mcg 07/31/25 09:00 08/03/25 09:17 Cholecalciferol (Vitamin D3) 25 Mcg (1,000 Units) Tablet PO 25 mcg DAILY MANN Administration Radiology Results: ITS Impressions Wrist X-Ray 07/30/25 19:46 Impression: No acute fracture or malalignment. Pelvis X-Ray 07/30/25 19:47 Impression: No acute fracture or malalignment. Shoulder X-Ray 07/30/25 19:47 Impression: No acute fracture or malalignment. Ribs w/Chest X-Ray 07/30/25 19:48 Impression: No acute fracture or malalignment. Cervical Spine CT 07/31/25 07:16 IMPRESSION: HEAD: 1. No acute intracranial findings. C-SPINE: 1. No acute fracture. Head CT 07/31/25 07:16 IMPRESSION: HEAD: 1. No acute intracranial findings. C-SPINE: 1. No acute fracture. Labs Labs: Laboratory Results - last 24 hr 08/03/25 03:45 WBC 5.9 RBC 3.63 L Hgb 12.0 Hct 35.8 L MCV 98.6 MCH 33.1 MCHC 33.5 RDW 14.1 Plt Count 273 MPV 9.2 Sodium 136 L Potassium 4.2 Chloride 103 Carbon Dioxide 27 Anion Gap 6 BUN 22 H Creatinine 0.71 Estim Creat Clear Calc 44 Estimated GFR > 60 Glucose 110 Calcium 9.3 Magnesium 1.9 Quality VTE Prophylaxis VTE prophylaxis: pharmacologic ordered
[2025-08-03] MEDS: cefTRIAXone 1 GM in SODIUM CHLORIDE 0.9% IV 50 ML 100 ML IVPB (21:19)
[2025-08-03] MEDS: DOCUSATE SODIUM 100 MG CAPSULE PO (21:20)
[2025-08-04] VITALS (8 sets, daily range): BP systolic 155; BP diastolic 90; PULSE 86–99; RESP 18; TEMP 36.5; O2SAT 98
[2025-08-04 04:22] LABS: Hematocrit 36.7 % (37.0-47.0); Hemoglobin 11.9 g/dL (12.0-15.0); Mean Corpuscular HGB Conc 32.4 g/dl (32-36); Mean Corpuscular Hemoglobin 32.9 pg (26-34); Mean Corpuscular Volume 101.4 fl (80-100); Platelet Count Result 259 k/mm3 (150-375); Red Blood Count 3.62 M/mm3 (4.2-5.4); White Blood Count 5.3 K/mm3 (4.5-10.0)
[2025-08-04 04:35] LABS: Anion Gap 6 mmol/L (4-12); Blood Urea Nitrogen 21 mg/dL (7-17); Calcium 9.3 mg/dL (8.4-10.2); Carbon Dioxide 28 mmol/L (22-30); Chloride 103 mmol/L (98-107); Estimated CRCL calculation 43 ml/min; Estimated Glomerular Filt Rate > 60; Glucose 99 mg/dL (65-110); Magnesium 1.9 mg/dL (1.6-2.3); Potassium 4.2 mmol/L (3.4-5.0); Sodium 137 mmol/L (137-145)
[2025-08-04] MEDS: PHENobarbitaL (*CRX) 30 MG TABLET PO ×2 (05:15→13:01)
[2025-08-04] MEDS: LEVOTHYROXINE SODIUM 75 MCG TABLET BY MOUTH (05:15)
[2025-08-04] MEDS: CARBIDOPA/LEVODOPA 25/100 MG TABLET 1 TABLET PO ×2 (05:15→11:21)
[2025-08-04] MEDS: METOPROLOL SUCCINATE EXT REL 50 MG TABCR PO (08:12)
[2025-08-04] MEDS: THERAPEUTIC MULTIVITAMINS/MINERALS TAB (*BKC) 1 TABLET PO (08:12)
[2025-08-04] MEDS: PANTOPRAZOLE 40 MG TABLET PO (08:12)
[2025-08-04] MEDS: CHOLECALCIFEROL (VITAMIN D3) 25 MCG (1,000 UNITS) TABLET PO (08:12)
[2025-08-04] MEDS: DIGOXIN TAB 125 MCG TABLET PO (08:13)
[2025-08-04] MEDS: ASPIRIN 81 MG CHEWABLE TABLET PO (08:13)
[2025-08-04] MEDS: SOTALOL HCL 80 MG TABLET PO (08:13)
[2025-08-04] MEDS: LIDOCAINE 5% PATCH 1 PATCH TRANSDERM (08:14)
[2025-08-04] MEDS: FUROSEMIDE 20 MG TABLET PO (08:14)
[2025-08-04] MEDS: CALCIUM/VITAMIN D 500 MG/5 MCG (200 I.U.) TABLET PO (08:14)
[2025-08-04] MEDS: APIXABAN 5 MG TABLET PO (08:14)
--- NOTE | 2025-08-04 12:01 | P.DS_ITS ---
DS: Admitting Diagnosis Discharge Date 08/04/25 Admitting Diagnosis Fall DS: Discharge Diagnosis Discharge Diagnosis (1) A-fib: Qualifiers: Atrial fibrillation type: paroxysmal Qualified Code(s): I48.0 - Paroxysmal atrial fibrillation Code(s): I48.91 - Unspecified atrial fibrillation Status: Acute (2) Fall: Code(s): W19.XXXA - Unspecified fall, initial encounter Status: Acute (3) Hypertension: Qualifiers: Hypertension type: essential hypertension Qualified Code(s): I10 - Essential (primary) hypertension Code(s): I10 - Essential (primary) hypertension Status: Chronic (4) Chronic anticoagulation: 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 Fib. however patient night before while standing between her living room and bedroom, does not know what exactly happen, no c/o CP, SOB, palpitation or dizziness. suspect most likely syncopal episode 2/2 cardiac arrhythmia, will have PT/OT evaluate the patient and further recommendation to follow. Today patient did work with PT and they recommending acute rehab before discharging home. patient is clinically stable, will CPM and plan. patient with persistent A. fib and has had previous cardio version 5x., her HR is reasonably controlled with metoprolol and sotalol. seen by the photo cartographer and recommending once patient weaned of sotalol, patient can be loaded with dofetillde and have AYO cardioversion and patient is agreeable with the plan as patient is not keen going to [facility], in the event cardioversion fails in that case will need ablation procedure, patient remain clinically stable and has no complaints, will monitor have PT/OT evaluate the patient. patient is on metoprolol 25mg BID, and sotalol 80mg BID, and on digoxin, patient remains in A.fib but rate is controlled, patient does not want cardio version as she had 5 cardio version and remains in A.fib, patient remains clinically stable, was able to walk in hallways without any Today patient is sitting in the chair eating her lunch, denies any CP, or palpitation, patient states feels better, patient will benefit going to [facility], once patient is clincally needs to follow up with her EP- photo cartographer at [facility]. [facility]. DS: Summary Hospital Course Hospital Course: patient with persistent A. fib and has had previous cardio version 5x., her HR is reasonably controlled with metoprolol and sotalol. seen by the photo cartographer and recommending once patient weaned of sotalol, patient can be loaded with dofetillde and have AYO cardioversion and patient is agreeable with the plan as patient is not keen going to [facility], in the event cardioversion fails in that case will need ablation procedure, patient remain clinically stable and has no complaints, will monitor have PT/OT evaluate the patient. patient is on metoprolol 25mg BID, and sotalol 80mg BID, and on digoxin, patient remains in A.fib but rate is controlled, patient does not want cardio version as she had 5 cardio version and remains in A.fib, patient remains clinically stable, was able to walk in hallways without any Today patient is sitting in the chair eating her lunch, denies any CP, or palpi tation, patient states feels better, patient will benefit going to [facility], once patient is clinically needs to follow up with her EP- photo cartographer at [facility]. will discharge patient to SNF for rehab today. Time Spent with Patient Time attestation: Total time spent providing and/or coordinating discharge services: Exam Narrative: Patient is comfortable, NAD HEENT: eyes are clear and none icteric LUNGS:CTA HEART: RR S1S2 ABD: BS+, Soft and nontender Lower extremities: no edema SKIN: nonjaundiced Neuro: grossly intact. DS: Data Data Completed and Pending Labs on day of discharge: Labs from last 24 hours 08/04/25 03:53 WBC 5.3 RBC 3.62 L Hgb 11.9 L Hct 36.7 L MCV 101.4 H MCH 32.9 MCHC 32.4 RDW 14.2 Plt Count 259 MPV 9.0 Sodium 137 Potassium 4.2 Chloride 103 Carbon Dioxide 28 Anion Gap 6 BUN 21 H Creatinine 0.72 Estim Creat Clear Calc 43 Estimated GFR > 60 Glucose 99 Calcium 9.3 Magnesium 1.9 Discharge Plan Discharge Attending physician on discharge: Tamara Beckford Consulting providers: Deion Marin; Brandt Jason; Massimo Carmona; Francisco Miller Discharging Clinician: Hallie Berkowitz Patient Disposition: SNF Activity: as tolerated Diet: heart healthy Discharge Instructions: patient to follow up with EP-photo cartographer and primary care provider as soon as possible. Patient Instructions: Heart Failure (DC) Patient Language: Serbian Stand Alone Forms: General Discharge Information Follow-up/Referrals: Deion Marin MD [Physician, Cardiology] Theodore Farrar MD [Primary Care Provider, Family Practice] Discharge Medications: New cefdinir 300 mg capsule 300 mg PO Q12H Qty: 10 0RF Continued Eliquis 5 mg tablet 5 mg PO Q12H phenobarbital 30 mg tablet 30 mg PO TID Qty: 90 5RF phenytoin sodium extended [Dilantin Extended] 100 mg capsule 100 mg PO TID Qty: 300 4RF Patient Comments: PER PT CAN NOT TAKE GENERIC WILL BRING IN HOME MEDICATION clopidogrel 75 mg tablet 75 mg PO DAILY cholecalciferol (vitamin D3) 25 mcg (1,000 unit) capsule 25 mcg PO DAILY aspirin 81 mg tablet,chewable 1 tablet PO DAILY Multivitamin Women 50 Plus 8 mg iron-400 mcg-50 mcg tablet 1 tablet PO DAILY furosemide 20 mg tablet 20 mg PO DAILY pantoprazole 40 mg tablet,delayed release (DR/EC) 40 mg PO DAILY sotalol 80 mg tablet 80 mg PO Q12H acetaminophen [Tylenol Extra Strength] 500 mg tablet 1,000 mg PO Q6H PRN (Reason: pain) docusate sodium 100 mg tablet 100 mg PO QHS calcium carbonate-vitamin D3 600 mg-10 mcg (400 unit) tablet 1 tablet PO Q12H lidocaine [Lidoderm] 5 % Adhesive Patch,Medicated 1 patch transdermal DAILY Qty: 15 0RF digoxin 125 mcg (0.125 mg) Tablet 125 mcg PO QAM Qty: 30 0RF metoprolol succinate 50 mg Tablet Extended Release 24 Hr 50 mg PO BID Qty: 60 0RF mecobalamin (vitamin B12) 1,000 mcg tablet,disintegrating 1,000 mcg PO EVERY OTHER DAY Qty: 90 1RF Rx Instructions: Friday, Friday, Friday carbidopa-levodopa 25-100 mg tablet 1 tablet PO TID Qty: 300 2RF levothyroxine 75 mcg tablet See Rx Instructions .ROUTE .COMPLEX Qty: 30 1RF Dose Instruction: TAKE 1 TABLET BY MOUTH ONCE DAILY Rx Instructions: TAKE 1 TABLET BY MOUTH ONCE DAILY Date of admission: 08/01/25 10:39 Primary Care Provider: Theodore Farrar Admitting Provider: Tamara Beckford Attending physician on admission: Hallie Berkowitz Condition: Stable
== END 2025-08-04 14:30 | DRG 309 ==
LOC: ANHED 18:58 → ANH2MED 07-31 00:14
PROVIDERS: Admitting Provider Internal Medicine; Emergency Provider Physician Assistant; PCP Family Medicine; Visit Provider Family Medicine
DX: I48.19 Other persistent atrial fibrillation (principal); N39.0 Urinary tract infection, site not specified; I10 Essential (primary) hypertension; W19.XXXA Unspecified fall, initial encounter; G20.A1 Parkinson's disease without dyskinesia, without mention of fluctuations; M54.16 Radiculopathy, lumbar region; E03.9 Hypothyroidism, unspecified; G40.909 Epilepsy, unspecified, not intractable, without status epilepticus; M17.0 Bilateral primary osteoarthritis of knee; Z79.01 Long term (current) use of anticoagulants; Z86.711 Personal history of pulmonary embolism; Z96.642 Presence of left artificial hip joint; Z96.611 Presence of right artificial shoulder joint; Z90.49 Acquired absence of other specified parts of digestive tract; Z90.710 Acquired absence of both cervix and uterus
CPT/HCPCS: 36415; 70450; 71101; 72125; 72170; 73030; 73110; 80048; 80053; 81001; 82550; 83735; 85025; 85027; 87086; 87186; 93005; 96365; 97110; 97116; 97161; 97165; 97530; 97535; 99285; A9270; G0378; J0696; J1885